=== PATIENT | female | born 1955 | race Caucasian/White ===

== ENCOUNTER 2016-09-07 14:42 | Emergency (ER) | payer MEDICARE, OTHER ==
[2016-09-07 14:50] VITALS: TEMP 98.6
[2016-09-07] MEDS ORDERED: MORPHINE SULFATE 2 MG/ML SYRINGE IVP ONE (15:19)
--- NOTE | 2016-09-07 15:23 | ED ---
General Adult HPI - General Source: patient, EMS, RN notes reviewed Mode of arrival: EMS Limitations: no limitations <Samir Zheng - Last Filed: 09/07/16 17:09> <Cristóbal Mendoza - Last Filed: 09/07/16 19:05> - General Chief complaint: Fall Stated complaint: Fall Time Seen by Provider: 09/07/16 14:45 - History of Present Illness Initial comments: This is a 61-year-old female presents to the emergency department stating that she tripped over some cement in the parking lot of a gas station fell and hit her face per patient states she doesn't know if she lost consciousness or not but she now complains of left wrist pain and right knee pain and a headache. Patient also complains some tenderness over the maxilla where there is an abrasion. Patient denies any chest pain or difficulty breathing patient denies abdominal pain patient denies back pain patient denies any or hip pain. Patient states prior to the event she was feeling fine she remembers her foot Something and Tripping. Patient Denies Any Lightheadedness or Dizziness Prior to the Episode. (Samir Zheng) - Related Data Home Medications Medication Instructions Recorded Confirmed ALPRAZolam [Xanax] 2 mg PO TID 12/14/13 09/07/16 Atorvastatin [Lipitor] 20 mg PO HS 12/14/13 09/07/16 Dextroamphetamine/Amphetamine 20 mg PO BID 12/14/13 09/07/16 [Adderall] FLUoxetine HCL [PROzac] 40 mg PO BID 12/14/13 09/07/16 Omeprazole [PriLOSEC] 40 mg PO BID 09/21/14 09/07/16 Fluticasone/Salmeterol [Advair 1 puff INHALATION RT-BID 10/05/15 09/07/16 500-50 Diskus] Baclofen 10 mg PO Q8H PRN 01/04/16 09/07/16 QUEtiapine [SEROquel] 50 - 100 mg PO HS 01/04/16 09/07/16 Sucralfate [Carafate] 1 gm PO TID 06/18/16 09/07/16 traMADol HCL [Ultram] 50 - 100 mg PO Q6H PRN 09/07/16 09/07/16 Previous Rx's Medication Instructions Recorded HYDROcodone/APAP 5-325MG [[place] 1 - 2 tab PO Q6HR PRN #12 tab 09/07/16 5-325] Ondansetron Odt [Zofran Odt] 4 mg PO Q8HR PRN #12 tab 09/07/16 Allergies Allergy/AdvReac Type Severity Reaction Status Date / Time adhesive tape AdvReac SKIN Verified 09/07/16 16:00 TEARING Review of Systems ROS Other: All systems not noted in ROS Statement are negative. <Samir Zheng - Last Filed: 09/07/16 17:09> ROS Other: All systems not noted in ROS Statement are negative. <Cristóbal Mendoza - Last Filed: 09/07/16 19:05> ROS Statement: Those systems with pertinent positive or pertinent negative responses have been documented in the HPI. Past Medical History Past Medical History: Asthma, Heart Failure, COPD, Dementia, Fibromyalgia, GERD/ Reflux, GI Bleed, Hyperlipidemia, Memory Impairment, Myocardial Infarction ([place]) , Osteoarthritis (OA), Pneumonia, Sleep Apnea/CPAP/BIPAP Additional Past Medical History / Comment(s): esophageal stricture with balloon stretching. sepsis with pneumonia(recurrent). skin ca. minor [place] 2 years ago. kidney stone with lithotrpsy. arthritis,rls.pt stated "my normal wt is around 0034-1851 so if i have an infection my white count is actually in a normal range " Last Myocardial Infarction Date:: 2 years ago approx History of Any Multi-Drug Resistant Organisms: None Reported Past Surgical History: Appendectomy, Breast Surgery, Hernia Repair, Hysterectomy Additional Past Surgical History / Comment(s): lithotrpsy, "stomach bypass secondary to gi bleed, tumor removed from left chao. mulitple skin bx. 2 umbilical hernia repairs, septal repair, 2 lumpectomies right breast both benign Past Anesthesia/Blood Transfusion Reactions: Previous Problems w/ Anesthesia Additional Past Anesthesia/Blood Transfusion Reaction / Comment(s): bp dips low Past Psychological History: Anxiety, Depression, PTSD Additional Psychological History / Comment(s): secondary to daughter commiting suicide 5 yrs ago. left pt with "shock dementia". 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 Smoking Status: Never smoker Past Alcohol Use History: None Reported Past Drug Use History: None Reported - Past Family History Mother Family Medical History: Cancer Additional Family Medical History / Comment(s): brother, sister and mother all had terminal cancers - breast, esophageal, and pancreatic <Samir Zheng - Last Filed: 09/07/16 17:09> General Exam Limitations: no limitations <Samir Zheng - Last Filed: 09/07/16 17:09> <Cristóbal Mendoza - Last Filed: 09/07/16 19:05> - General Exam Comments Initial Comments: GENERAL: Patient is well-developed and well-nourished. Patient is nontoxic and well- hydrated and is in mild distress. ENT: Neck is soft and supple. No significant lymphadenopathy is noted. Oropharynx is clear. Moist mucous membranes. Neck has full range of motion without eliciting any pain. EYES: The sclera were anicteric and conjunctiva were pink and moist. Extraocular movements were intact and pupils were equal round and reactive to light. Eyelids were unremarkable. PULMONARY: Unlabored respirations. Good breath sounds bilaterally. No audible rales rhonchi or wheezing was noted. CARDIOVASCULAR: There is a regular rate and rhythm without any murmurs gallops or rubs. ABDOMEN: Soft and nontender with normal bowel sounds. No palpable organomegaly was noted. There is no palpable pulsatile mass. SKIN: Abrasion upper lip NEUROLOGIC: Patient is alert and oriented x3. Cranial nerves II through XII are grossly intact. Motor and sensory are also intact. Normal speech, volume and content. Symmetrical smile. MUSCULOSKELETAL: Patient has difficulty flexing the right knee. Patient has tenderness in the anterior aspect of the knee just inferior to the patella. Patient complains of tenderness over the ulnar on the posterior aspect of the left wrist. Patient also has some maxillary tenderness with the abrasion is. LYMPHATICS: No significant lymphadenopathy is noted PSYCHIATRIC: Normal psychiatric evaluation. (Samir Zheng) Medical Decision Making - Lab Data Result diagrams: 09/07/16 15:30 09/07/16 15:30 <Samir Zheng - Last Filed: 09/07/16 17:09> - Lab Data Result diagrams: 09/07/16 15:30 09/07/16 15:30 <Cristóbal Mendoza - Last Filed: 09/07/16 19:05> - Medical Decision Making EKG shows normal sinus rhythm at 65 bpm ND interval 244 QRS is 84 Q-T intervals 424 QTC is 440. Patient's EKG shows no ST segment elevation or depression or T- wave abdomen is noted. Dr. Mendoza be taking over the care of this patient at 5 PM (Samir Zheng) Patient was signed out to me by Dr. Zheng. I reviewed the scans and there were mostly unremarkable except for possibility of a hairline fracture of the right maxillary sinus. I palpated the patient's face and she has tenderness all over. I cannot completely exclude that there may be a hairline fracture at this point however the management is conservative. I told her that she needs to refrain from blowing her nose until she can follow-up with her primary doctor and possibly get in to see ENT. The patient was improved after pain medications and knee immobilizer in the emergency department. She has a cane at home that she is going to use. I'm going to give her Nelson and Zofran that she can use as needed. Told her that she has a concussion if she has any worsening or severe headache or intractable vomiting she is to return emergency Department for further evaluation. Patient understood and agreed and was okay with the plan to go home. (Cristóbal Mendoza) - Lab Data Lab Results 09/07/16 09/07/16 09/07/16 Range/Units 15:30 15:30 15:30 WBC 3.6 L (3.8-10.6) k/uL RBC 4.03 (3.80-5.40) m/uL Hgb 12.7 (11.4-16.0) gm/dL Hct 39.0 (34.0-46.0) % MCV 96.6 (80.0-100.0) fL MCH 31.5 (25.0-35.0) pg MCHC 32.6 (31.0-37.0) g/dL RDW 12.4 (11.5-15.5) % Plt Count 176 (150-450) k/uL Neutrophils % 57 % Lymphocytes % 31 % Monocytes % 6 % Eosinophils % 3 % Basophils % 1 % Neutrophils # 2.0 (1.3-7.7) k/uL Lymphocytes # 1.1 (1.0-4.8) k/uL Monocytes # 0.2 (0-1.0) k/uL Eosinophils # 0.1 (0-0.7) k/uL Basophils # 0.0 (0-0.2) k/uL PT (9.0-12.0) sec INR (<1.1) APTT (22.0-30.0) sec Sodium 141 (137-145) mmol/L Potassium 4.2 (3.5-5.1) mmol/L Chloride 108 H (98-107) mmol/L Carbon Dioxide 25 (22-30) mmol/L Anion Gap 8 mmol/L BUN 16 (7-17) mg/dL Creatinine 0.58 (0.52-1.04) mg/dL Est GFR (MDRD) Af Amer >60 (>60 ml/min/1.73 sqM) Est GFR (MDRD) Non-Af >60 (>60 ml/min/1.73 sqM) Glucose 85 (74-99) mg/dL Calcium 8.7 (8.4-10.2) mg/dL Magnesium 1.8 (1.6-2.3) mg/dL Total Bilirubin 0.5 (0.2-1.3) mg/dL AST 22 (14-36) U/L ALT 23 (9-52) U/L Alkaline Phosphatase 84 (38-126) U/L Total Creatine Kinase 91 (30-135) U/L CK-MB (CK-2) 2.0 (0.0-2.4) ng/mL CK-MB (CK-2) Rel Index 2.2 Troponin I <0.012 (0.000-0.034) ng/mL Total Protein 6.4 (6.3-8.2) g/dL Albumin 3.7 (3.5-5.0) g/dL 09/07/16 Range/Units 15:30 WBC (3.8-10.6) k/uL RBC (3.80-5.40) m/uL Hgb (11.4-16.0) gm/dL Hct (34.0-46.0) % MCV (80.0-100.0) fL MCH (25.0-35.0) pg MCHC (31.0-37.0) g/dL RDW (11.5-15.5) % Plt Count (150-450) k/uL Neutrophils % % Lymphocytes % % Monocytes % % Eosinophils % % Basophils % % Neutrophils # (1.3-7.7) k/uL Lymphocytes # (1.0-4.8) k/uL Monocytes # (0-1.0) k/uL Eosinophils # (0-0.7) k/uL Basophils # (0-0.2) k/uL PT 10.3 (9.0-12.0) sec INR 1.0 (<1.1) APTT 22.3 (22.0-30.0) sec Sodium (137-145) mmol/L Potassium (3.5-5.1) mmol/L Chloride (98-107) mmol/L Carbon Dioxide (22-30) mmol/L Anion Gap mmol/L BUN (7-17) mg/dL Creatinine (0.52-1.04) mg/dL Est GFR (MDRD) Af Amer (>60 ml/min/1.73 sqM) Est GFR (MDRD) Non-Af (>60 ml/min/1.73 sqM) Glucose (74-99) mg/dL Calcium (8.4-10.2) mg/dL Magnesium (1.6-2.3) mg/dL Total Bilirubin (0.2-1.3) mg/dL AST (14-36) U/L ALT (9-52) U/L Alkaline Phosphatase (38-126) U/L Total Creatine Kinase (30-135) U/L CK-MB (CK-2) (0.0-2.4) ng/mL CK-MB (CK-2) Rel Index Troponin I (0.000-0.034) ng/mL Total Protein (6.3-8.2) g/dL Albumin (3.5-5.0) g/dL Disposition <Samir Zheng - Last Filed: 09/07/16 17:09> <Cristóbal Mendoza - Last Filed: 09/07/16 19:05> Clinical Impression: Fall, Knee contusion, Facial contusion, Mild traumatic brain injury Disposition: HOME SELF-CARE Condition: Stable Instructions: Post Concussion Syndrome (ED) Prescriptions: HYDROcodone/APAP 5-325MG [[place] 5-325] 1 - 2 tab PO Q6HR PRN #12 tab PRN Reason: Pain Ondansetron Odt [Zofran Odt] 4 mg PO Q8HR PRN #12 tab PRN Reason: Nausea Referrals: Marty Faulkner DO [Primary Care Provider] - 1-2 days
[2016-09-07 15:50] LABS: Basophils % (A) 1 %; CHCM 32.2; Eosinophils # (A) 0.1 k/uL (0-0.7); Eosinophils % (A) 3 %; HDW 2.44; HGB 12.7 gm/dL (11.4-16.0); Luc # (Auto) 0.08; Luc % (Auto) 2; Lymphocytes # (A) 1.1 k/uL (1.0-4.8); Lymphocytes % (A) 31 %; MCH 31.5 pg (25.0-35.0); MCHC 32.6 g/dL (31.0-37.0); MCV 96.6 fL (80.0-100.0); Mean Platelet Volume 9.4; Monocytes # (A) 0.2 k/uL (0-1.0); Monocytes % (A) 6 %; Neutrophils % (A) 57 %; RBC 4.03 m/uL (3.80-5.40); RDW 12.4 % (11.5-15.5); WBC 3.6 k/uL (3.8-10.6); WBC (Perox) 3.66
[2016-09-07 15:53] LABS: ALT 23 U/L (9-52); AST 22 U/L (14-36); Alkaline Phosphatase 84 U/L (38-126); Anion Gap 8 mmol/L; Blood Urea Nitrogen 16 mg/dL (7-17); Calcium 8.7 mg/dL (8.4-10.2); Carbon Dioxide 25 mmol/L (22-30); Chloride 108 mmol/L (98-107); Glucose 85 mg/dL (74-99); Magnesium 1.8 mg/dL (1.6-2.3); Non-African American GFR(MDRD) >60 (>60 ml/min/1.73 sqM); Partial Thromboplastin Time 22.3 sec (22.0-30.0); Potassium 4.2 mmol/L (3.5-5.1); Prothrombin Time 10.3 sec (9.0-12.0); Sodium 141 mmol/L (137-145); Total Bilirubin 0.5 mg/dL (0.2-1.3); Total Protein 6.4 g/dL (6.3-8.2)
[2016-09-07 16:07] LABS: Creatine Kinase 91 U/L (30-135)
[2016-09-07 16:21] LABS: Troponin I <0.012 ng/mL (0.000-0.034)
--- NOTE | 2016-09-07 17:05 | CT ---
EXAMINATION TYPE: CT facial bones wo con DATE OF EXAM: 09/07/2016 4:51 PM COMPARISON: NONE HISTORY: Fall today. CT DLP: 2566.00 mGycm Automated exposure control for dose reduction was used. TECHNIQUE: CT scan of the sinuses is performed without contrast, axial images are obtained, coronal r eformatted images are also reviewed. FINDINGS: Nasopharynx is symmetric. Intraorbital structures have a normal appearance. Motion artifact obscures intracranial structures. Nasopharynx symmetric. Osseous structures including the frontal bone and portions the orbits are limited due to motion artif act. Defect along the right frontal bone noted to extend into the frontal sinus but no fluid and ther efore felt to be chronic correlate with point tenderness. No obvious acute fracture. IMPRESSION: 1. Linear defect along the right margin of the frontal sinus. Correlate with point tenderness for ariela rline nondisplaced fracture. [place] to be most likely chronic correlate clinically..
--- NOTE | 2016-09-07 17:12 | CT ---
EXAMINATION TYPE: CT brain micaelaine wo con DATE OF EXAM: 09/07/2016 4:52 PM COMPARISON: NONE HISTORY: Fall today. CT DLP: 2566.00 mGycm Automated exposure control for dose reduction was used. TECHNIQUE: CT scan of the head and cervical spine are performed without contrast. FINDINGS: There is no acute intracranial hemorrhage, mass effect, or midline shift identified. Calc ification in the basal ganglia noted. Linear lucency involving the right frontal bone appears chronic . No fluid within the sinus. Severe degenerative disc disease C5-C6. Anterolisthesis of C3 on C4 appears chronic. Multilevel facet arthropathy noted. Heterogeneous pattern of the thyroid gland noted. IMPRESSION: 1. There is no acute fracture or dislocation evident in the cervical spine. 2. No acute intracranial hemorrhage, mass effect, or midline shift is seen.
--- NOTE | 2016-09-07 18:08 | XR ---
EXAMINATION TYPE: XR chest 2V DATE OF EXAM: 09/07/2016 6:04 PM COMPARISON: 06/18/2016 HISTORY: Shortness of breath TECHNIQUE: Frontal and lateral views of the chest are obtained. FINDINGS: Scattered senescent parenchymal changes noted. Hyperinflation compatible with COPD. No evidence for infiltrate. No evidence for atelectasis. Heart size is stable. Mediastinal structures are stable and grossly unremarkable. No evidence for hilar prominence. Degenerative changes dorsal spine. IMPRESSION: 1. No evidence for acute pulmonary disease.
--- NOTE | 2016-09-07 18:09 | XR ---
EXAMINATION TYPE: XR wrist complete LT, XR knee complete RT DATE OF EXAM: 09/07/2016 6:04 PM CLINICAL HISTORY: pain TECHNIQUE: Frontal, lateral and oblique images of the left wrist are obtained. COMPARISON: None. FINDINGS: There is no acute fracture/dislocation evident. The joint spaces appear within normal donahue its. The overlying soft tissue appears unremarkable. IMPRESSION: There is no acute fracture or dislocation seen. ICD 10 NO FRACTURE, INITIAL EVALUATION EXAMINATION TYPE: XR wrist complete LT, XR knee complete RT DATE OF EXAM: 09/07/2016 6:04 PM CLINICAL HISTORY: pain TECHNIQUE: Three views of the right knee are obtained. COMPARISON: None. FINDINGS: There is no acute fracture/dislocation. The tri-compartment joint spaces appear within no rmal limits. The overlying soft tissue appears unremarkable. Mild joint effusion noted. IMPRESSION: There is no acute fracture or dislocation.ICD 10 NO FRACTURE, INITIAL EVALUATION
[2016-09-07] MEDS ORDERED: KETOROLAC 30 MG/ML 1 ML VIAL IVP STA (18:28)
[2016-09-07] MEDS ORDERED: HYDROcodone/APAP 5-325MG 1 EACH TAB PO STA (18:28)
[2016-09-07] MEDS ORDERED: ONDANSETRON ODT 4 MG TAB PO STA (18:36)
[2016-09-07 19:06] VITALS: BP 125/69; PULSE 62; RESP 18
== END 2016-09-07 19:06 | disposition home or self-care (01) ==
LOC: EC 14:42
DX: S00.531A Contusion of lip, initial encounter (principal); S80.01XA Contusion of right knee, initial encounter; F07.81 Postconcussional syndrome; M25.532 Pain in left wrist; J44.9 Chronic obstructive pulmonary disease, unspecified; J45.909 Unspecified asthma, uncomplicated; M79.7 Fibromyalgia; K21.9 Gastro-esophageal reflux disease without esophagitis; E78.5 Hyperlipidemia, unspecified; I25.2 Old myocardial infarction; M19.90 Unspecified osteoarthritis, unspecified site; F43.10 Post-traumatic stress disorder, unspecified; F41.9 Anxiety disorder, unspecified; F32.9 Major depressive disorder, single episode, unspecified; F03.90 Unspecified dementia, unspecified severity, without behavioral disturbance, psychotic disturbance, mood disturbance, and anxiety; Z79.899 Other long term (current) drug therapy; Z91.048 Other nonmedicinal substance allergy status; W01.198A Fall on same level from slipping, tripping and stumbling with subsequent striking against other object, initial encounter
CPT/HCPCS: 99285; 96374; 96375; 36415; 93005; 80053; 82550; 82553; 83735; 84484; 85025; 85610; 85730; 71020; 73110; 73562; 72125; 70486; 70450; L1830; J1885; J2270

== ENCOUNTER 2016-09-08 19:21 | Observation (INO) | payer MEDICARE, OTHER ==
[2016-09-08] MEDS ORDERED: SODIUM CHLORIDE 0.9% 1,000 ML IV STA ×2 (20:26)
[2016-09-08] MEDS ORDERED: ACETAMINOPHEN IV (For NPO) 1,000 MG in SALINE 1 100ML.BAG IVPB STA (20:27)
--- NOTE | 2016-09-08 20:32 | ED ---
Dizziness HPI - General Chief Complaint: Syncope Stated Complaint: Dizziness/Vomiting Time Seen by Provider: 09/08/16 20:00 Source: patient, RN notes reviewed Mode of arrival: wheelchair Limitations: no limitations - History of Present Illness Initial Comments: This is a 61-year-old female history of multiple medical problems who states she tripped over a concrete yesterday hit her head against a pole and later concreted a local gas station. She was seen here and diagnosed with an orbital fracture a possible nasal fracture and from what she describes a right knee strain. She presents today due to 3-4 near syncopal episodes with dizziness lightheadedness difficulty walking increased pain to her head or neck and right knee. There were apparently no fractures seen in the knee. She has no focal neurological deficits. Some nausea but no vomiting. She states her pain is 8/ 10 severity rate now. She was seen by her family doctor today and referred back here for reevaluation. MD Complaint: dizziness, lightheadedness, near syncope, difficulty walking - Related Data Home Medications Medication Instructions Recorded Confirmed ALPRAZolam [Xanax] 2 mg PO TID 12/14/13 09/08/16 Atorvastatin [Lipitor] 20 mg PO HS 12/14/13 09/08/16 Dextroamphetamine/Amphetamine 20 mg PO BID 12/14/13 09/08/16 [Adderall] FLUoxetine HCL [PROzac] 40 mg PO BID 12/14/13 09/08/16 Omeprazole [PriLOSEC] 40 mg PO BID 09/21/14 09/08/16 Fluticasone/Salmeterol [Advair 1 puff INHALATION RT-BID 10/05/15 09/08/16 500-50 Diskus] Baclofen 10 mg PO Q8H PRN 01/04/16 09/08/16 QUEtiapine [SEROquel] 100 mg PO HS 01/04/16 09/08/16 Sucralfate [Carafate] 1 gm PO TID 06/18/16 09/08/16 traMADol HCL [Ultram] 50 mg PO Q6H PRN 09/07/16 09/08/16 HYDROcodone/APAP 5-325MG [[place] 1 tab PO Q6HR PRN 09/08/16 09/08/16 5-325] Previous Rx's Medication Instructions Recorded Ondansetron Odt [Zofran Odt] 4 mg PO Q8HR PRN #12 tab 09/07/16 Allergies Allergy/AdvReac Type Severity Reaction Status Date / Time adhesive tape AdvReac Skin Verified 09/08/16 20:26 Tearing Review of Systems ROS Statement: Those systems with pertinent positive or pertinent negative responses have been documented in the HPI. ROS Other: All systems not noted in ROS Statement are negative. Past Medical History Past Medical History: Asthma, Heart Failure, COPD, Dementia, Fibromyalgia, GERD/ Reflux, GI Bleed, Hyperlipidemia, Memory Impairment, Myocardial Infarction ([place]) , Osteoarthritis (OA), Pneumonia, Sleep Apnea/CPAP/BIPAP Additional Past Medical History / Comment(s): esophageal stricture with balloon stretching. sepsis with pneumonia(recurrent). skin ca. minor [place] 2 years ago. kidney stone with lithotrpsy. arthritis,rls.pt stated "my normal wt is around 5297-4874 so if i have an infection my white count is actually in a normal range " Last Myocardial Infarction Date:: 2 years ago approx History of Any Multi-Drug Resistant Organisms: None Reported Past Surgical History: Appendectomy, Breast Surgery, Hernia Repair, Hysterectomy Additional Past Surgical History / Comment(s): lithotrpsy, "stomach bypass secondary to gi bleed, tumor removed from left chao. mulitple skin bx. 2 umbilical hernia repairs, septal repair, 2 lumpectomies right breast both benign Past Anesthesia/Blood Transfusion Reactions: Previous Problems w/ Anesthesia Additional Past Anesthesia/Blood Transfusion Reaction / Comment(s): bp dips low Past Psychological History: Anxiety, Depression, PTSD Additional Psychological History / Comment(s): secondary to daughter commiting suicide 5 yrs ago. left pt with "shock dementia". 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 Smoking Status: Never smoker Past Alcohol Use History: None Reported Past Drug Use History: None Reported - Past Family History Mother Family Medical History: Cancer Additional Family Medical History / Comment(s): brother, sister and mother all had terminal cancers - breast, esophageal, and pancreatic General Exam - General Exam Comments Initial Comments: Is a well-developed well-nourished awake alert oriented history female she does demonstrate a [place] Coma Scale of 15 Limitations: no limitations General appearance: alert, anxious Head exam: Present: normocephalic, other (Some edema noted around the right inferior orbit dry blood from the right naris tenderness palpation over this region. No step-off or crepitation tenderness over the nasion.) Eye exam: Present: normal appearance, PERRL, EOMI Pupils: Present: normal accommodation ENT exam: Present: TM's normal bilaterally. Absent: normal oropharynx Neck exam: Present: normal inspection, tenderness, full ROM. Absent: meningismus, lymphadenopathy Respiratory exam: Present: normal lung sounds bilaterally. Absent: respiratory distress, wheezes, rales, rhonchi, stridor Cardiovascular Exam: Present: regular rate, normal rhythm, normal heart sounds. Absent: systolic murmur, diastolic murmur, rubs, gallop, clicks Rectal exam: Present: deferred Extremities exam: Present: tenderness, normal capillary refill, other ( Tenderness over the right knee to palpation no step-off or crepitation there is evidence of localized edema.). Absent: full ROM Back exam: Present: normal inspection, tenderness, muscle spasm, paraspinal tenderness. Absent: CVA tenderness (R), CVA tenderness (L), vertebral tenderness Neurological exam: Present: alert, oriented X3, CN II-XII intact. Absent: motor sensory deficit Psychiatric exam: Present: normal affect, normal mood Skin exam: Present: warm, dry, normal color Course Vital Signs 09/08/16 19:32 Temperature 98.4 F Pulse Rate 73 Respiratory 18 Rate Blood Pressure 130/59 O2 Sat by Pulse 98 Oximetry - Reevaluation(s) Reevaluation #1: 09/08/16 22:49 Reassessment of the patient reveals her to be awake alert oriented history she does have pain in her face and her right knee. EKG Findings - EKG Results: EKG: interpreted by ERMD, sinus rhythm (Sinus rhythm rate of 63. Arrival 120 QRS duration 74 QT/QTC 422/431 st-t wave changes), normal axis, normal QRS, normal ST/T, no acute changes Medical Decision Making - Lab Data Result diagrams: 09/08/16 20:15 09/08/16 20:15 Lab Results 09/08/16 09/08/16 09/08/16 Range/Units 20:15 20:15 20:15 WBC 3.6 L (3.8-10.6) k/uL RBC 3.79 L (3.80-5.40) m/uL Hgb 12.0 (11.4-16.0) gm/dL Hct 36.5 (34.0-46.0) % MCV 96.4 (80.0-100.0) fL MCH 31.6 (25.0-35.0) pg MCHC 32.8 (31.0-37.0) g/dL RDW 12.5 (11.5-15.5) % Plt Count 175 (150-450) k/uL Neutrophils % 59 % Lymphocytes % 29 % Monocytes % 7 % Eosinophils % 3 % Basophils % 0 % Neutrophils # 2.1 (1.3-7.7) k/uL Lymphocytes # 1.0 (1.0-4.8) k/uL Monocytes # 0.3 (0-1.0) k/uL Eosinophils # 0.1 (0-0.7) k/uL Basophils # 0.0 (0-0.2) k/uL Sodium 141 (137-145) mmol/L Potassium 4.0 (3.5-5.1) mmol/L Chloride 105 (98-107) mmol/L Carbon Dioxide 27 (22-30) mmol/L Anion Gap 9 mmol/L BUN 17 (7-17) mg/dL Creatinine 0.65 (0.52-1.04) mg/dL Est GFR (MDRD) Af Amer >60 (>60 ml/min/1.73 sqM) Est GFR (MDRD) Non-Af >60 (>60 ml/min/1.73 sqM) Glucose 154 H (74-99) mg/dL Calcium 8.5 (8.4-10.2) mg/dL Magnesium 1.8 (1.6-2.3) mg/dL Total Bilirubin 0.5 (0.2-1.3) mg/dL AST 18 (14-36) U/L ALT 20 (9-52) U/L Alkaline Phosphatase 72 (38-126) U/L Total Creatine Kinase 73 (30-135) U/L CK-MB (CK-2) 1.3 (0.0-2.4) ng/mL CK-MB (CK-2) Rel Index 1.8 Total Protein 6.0 L (6.3-8.2) g/dL Albumin 3.5 (3.5-5.0) g/dL - Radiology Data Radiology results: report reviewed (I did review the imaging and reports no acute findings except for right patella fracture is nondisplaced. I did a long discussion with the patient and her family also with surgeon on-call when the patient came in yesterday the patient has been referred to admission to medicine with surgery on consult consultation for ENT as well as orthopedic surgery. At this time there is no general surgical problem the evaluation for near syncope will begin as well as addressing other findings.), image reviewed Disposition Clinical Impression: Near syncope, Patella fracture, Right orbit fracture Disposition: ADMITTED IP TO THIS [facility] Condition: Stable
[2016-09-08 20:43] LABS: Basophils % (A) 0 %; CH 30.9; CHCM 32.2; Eosinophils # (A) 0.1 k/uL (0-0.7); Eosinophils % (A) 3 %; HCT 36.5 % (34.0-46.0); Luc # (Auto) 0.06; Luc % (Auto) 2; Lymphocytes % (A) 29 %; MCH 31.6 pg (25.0-35.0); MCHC 32.8 g/dL (31.0-37.0); MCV 96.4 fL (80.0-100.0); Mean Platelet Volume 9.3; Monocytes # (A) 0.3 k/uL (0-1.0); Monocytes % (A) 7 %; Neutrophils # (A) 2.1 k/uL (1.3-7.7); Neutrophils % (A) 59 %; RBC 3.79 m/uL (3.80-5.40); RDW 12.5 % (11.5-15.5); WBC 3.6 k/uL (3.8-10.6); WBC (Perox) 3.62
[2016-09-08] MEDS ORDERED: ONDANSETRON 4 MG/2 ML VIAL IVP STA (20:53)
[2016-09-08 21:04] LABS: ALT 20 U/L (9-52); AST 18 U/L (14-36); Alkaline Phosphatase 72 U/L (38-126); Anion Gap 9 mmol/L; Blood Urea Nitrogen 17 mg/dL (7-17); Calcium 8.5 mg/dL (8.4-10.2); Carbon Dioxide 27 mmol/L (22-30); Chloride 105 mmol/L (98-107); Glucose 154 mg/dL (74-99); Magnesium 1.8 mg/dL (1.6-2.3); Non-African American GFR(MDRD) >60 (>60 ml/min/1.73 sqM); Sodium 141 mmol/L (137-145); Total Bilirubin 0.5 mg/dL (0.2-1.3)
--- NOTE | 2016-09-08 21:10 | CT ---
EXAMINATION TYPE: CT brain wo con DATE OF EXAM: 09/08/2016 8:56 PM COMPARISON: CT brain dated 06/18/2016. HISTORY: Fall yesterday. CT DLP: 1070.80 mGycm. Automated Exposure Control for Dose Reduction was Utilized. TECHNIQUE: CT scan of the head is performed without contrast. FINDINGS: There is no acute intracranial hemorrhage, mass effect, or midline shift identified. The ventricles and sulci are within symmetrically prominent and age-related. Dystrophic bilateral basal ganglia calcifications are seen. The globes are intact and the visualized sinuses are clear. Atherosc lerosis is noted of the intracranial vasculature. Previously noted linear lucency along the right fro ntal sinus is less conspicuous on today's examination. IMPRESSION: 1. No acute intracranial hemorrhage, mass effect, or midline shift is seen. 2. No evidence of calvarial fracture.
[2016-09-08 21:11] LABS: Creatine Kinase MB 1.3 ng/mL (0.0-2.4)
--- NOTE | 2016-09-08 21:16 | CT ---
EXAMINATION TYPE: CT knee RT wo con DATE OF EXAM: 09/08/2016 8:56 PM COMPARISON: Right knee radiographs dated 09/07/2016. HISTORY: Fall yesterday. CT DLP: 445.[address] images were obtained through the distal femur to the proximal tibia. Coronal and sagittal reformats were obtained for review. Automated exposure control for dose reduction was used. 3-D reformats were obtained. FINDINGS: There is prepatellar edema and skin thickening. There is an acute medial pole patellar fracture, whic h is nondisplaced seen on coronal image (location -47.13 and page [id number]) there is an associated modera te lipohemarthrosis of the suprapatellar space and fluid seen at the patellar apex. No other fracture s are identified. Well-corticated bone islands are seen of the lateral tibial plateau. Atherosclerosi s is seen of the vasculature. There is no evidence of dislocation. IMPRESSION: 1. NONDISPLACED MEDIAL POLE PATELLAR FRACTURE WITH ASSOCIATED MODERATE LIPOHEMARTHROSIS. NO OTHER FRA CTURE OR DISLOCATION IS IDENTIFIED.
[2016-09-08] MEDS ORDERED: NALOXONE 0.4 MG/ML 1 ML VIAL IV PRN (22:51)
[2016-09-08] MEDS ORDERED: BACLOFEN 10 MG TAB PO PRN (22:56)
[2016-09-09 00:34] VITALS: BMI 29.2
[2016-09-09] MEDS: HYDROcodone/APAP 5-325MG 1 EACH TAB PO PRN ×4 (00:42→22:32)
[2016-09-09 06:26] LABS: Glucose,Whole Blood 107 mg/dL (75-99)
[2016-09-09] MEDS: PANTOPRAZOLE 40 MG TABLET PO SCH ×2 (08:08→21:40)
[2016-09-09] MEDS: ALPRAZolam 0.5 MG TAB PO SCH ×3 (08:09→21:40)
[2016-09-09] MEDS: SUCRALFATE 1 GM TAB PO SCH ×3 (08:09→21:40)
[2016-09-09] MEDS: FLUoxetine HCL 20 MG CAP PO SCH ×2 (08:09→21:40)
[2016-09-09] MEDS: SYMBICORT 160-4.5 MCG INHALER INHALATION SCH ×3 (08:38→20:40)
[2016-09-09] MEDS ORDERED: NON-FORMULARY DRUG (Dextroamphetamine/Amphetamine [Adderall] 20 MG) PO SCH (09:00)
--- NOTE | 2016-09-09 11:41 | P.CNOR ---
History of Present Illness - [facility] Consult date: 09/09/16 Consult reason: fracture (Right patella) History of present illness: This is a 61 -year-old female who fell in the gas station parking lot on 09-07-16 sustaining injury to her right knee and head. She was seen emergency department that day and discharged to home and advised to follow-up with orthopedics and ENT. She is found to have a right orbital fracture and right knee strain. She saw her family physician yesterday who admitted the patient for further evaluation for possible concussion. Patient also complains of continued right knee pain. Computed tomography scan was done which reveals a nondisplaced patella fracture. We are consulted for orthopedic evaluation. Patient also complains of left arm pain. Past Medical History Past Medical History: Asthma, Cancer, Heart Failure, COPD, Dementia, Fibromyalgia, GERD/Reflux, GI Bleed, Hyperlipidemia, Memory Impairment, Myocardial Infarction ([place]), Osteoarthritis ([place]), Pneumonia, Sleep Apnea/CPAP/ BIPAP Additional Past Medical History / Comment(s): esophageal stricture with balloon stretching. sepsis with pneumonia(recurrent) r/t to GERD causing aspiration pneumonia. skin ca. minor [place] 2 years ago. kidney stone with lithotrpsy. arthritis,rls.pt stated "my normal wt is around 4811-8590 so if i have an infection my white count is actually in a normal range", Hypotension, Anemia Last Myocardial Infarction Date:: 2 years ago approx History of Any Multi-Drug Resistant Organisms: None Reported Past Surgical History: Adenoidectomy, Appendectomy, Breast Surgery, Hernia Repair, Hysterectomy, Tonsillectomy Additional Past Surgical History / Comment(s): lithotrpsy, "stomach bypass secondary to gi bleed, tumor removed from left chao. mulitple skin bx. 3 umbilical hernia repairs, septal repair, 2 lumpectomies right breast both benign Past Anesthesia/Blood Transfusion Reactions: Previous Problems w/ Anesthesia Additional Past Anesthesia/Blood Transfusion Reaction / Comm: bp dips low Past Psychological History: Anxiety, Depression, PTSD Additional Psychological History / Comment(s): secondary to daughter commiting suicide 5 yrs ago. left pt with "shock dementia". 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 Smoking Status: Never smoker Past Alcohol Use History: None Reported Past Drug Use History: None Reported - Past Family History Mother Family Medical History: Cancer Additional Family Medical History / Comment(s): brother, sister and mother all had terminal cancers - breast, esophageal, and pancreatic Medications and Allergies Home Medications Medication Instructions Recorded Confirmed Type ALPRAZolam [Xanax] 2 mg PO TID 12/14/13 09/08/16 History Atorvastatin [Lipitor] 20 mg PO HS 12/14/13 09/08/16 History Dextroamphetamine/Amphetamine 20 mg PO BID 12/14/13 09/08/16 History [Adderall] FLUoxetine HCL [PROzac] 40 mg PO BID 12/14/13 09/08/16 History Omeprazole [PriLOSEC] 40 mg PO BID 09/21/14 09/08/16 History Fluticasone/Salmeterol [Advair 1 puff INHALATION RT-BID 10/05/15 09/08/16 History 500-50 Diskus] Baclofen 10 mg PO Q8H PRN 01/04/16 09/08/16 History QUEtiapine [SEROquel] 100 mg PO HS 01/04/16 09/08/16 History Sucralfate [Carafate] 1 gm PO TID 06/18/16 09/08/16 History traMADol HCL [Ultram] 50 mg PO Q6H PRN 09/07/16 09/08/16 History HYDROcodone/APAP 5-325MG [[place] 1 tab PO Q6HR PRN 09/08/16 09/08/16 History 5-325] Allergies Allergy/AdvReac Type Severity Reaction Status Date / Time adhesive tape AdvReac Skin Verified 09/08/16 20:26 Tearing Physical Examination This is a pleasant 59-year-old female in no acute distress. She is alert and oriented 3. Exam of the head neck reveal mild swelling to the right orbit. There is an abrasion about the right nares. She has fairly good cervical spine motion without difficulty or pain. Exam the upper extremities reveals no obvious deformity. There is pain with palpation about the triceps muscle and tendon insertion on the olecranon. She has full elbow extension. Flexion to approximately 90. She has mild pain with motion of the shoulder. Neurovascular status to the upper extremities is intact. Exam of the lower extremities reveals a knee immobilizer in place on the right. The immobilizer is removed and on inspection of the right knee there is mild swelling noted. There is no ecchymosis or erythema. There is pain on palpation about the patella. She has full foot and ankle motion without difficulty or pain. Neurovascular status to the right lower extremity is intact. Results Computed tomography scan of the right knee reveals a nondisplaced medial patellar fracture. No other acute fractures identified. - Labs Labs: Abnormal Lab Results - Last 24 Hours (Table) 09/09/16 Range/Units 06:25 POC Glucose (mg/dL) 107 H (75-99) mg/dL Result Diagrams: 09/08/16 20:15 09/08/16 20:15 Assessment and Plan (1) Near syncope Status: Acute (2) Patella fracture Status: Acute (3) Right orbit fracture Status: Acute (4) Facial contusion Status: Acute Plan: The clinical and x-ray findings are discussed the patient. She is to remain in the knee immobilizer. She may be toe-touch weightbearing with crutches or walker. I will order x-rays of the left shoulder and elbow for further evaluation.
[2016-09-09 11:56] LABS: Glucose,Whole Blood 138 mg/dL (75-99)
[2016-09-09] MEDS: ONDANSETRON ODT 4 MG TAB PO PRN ×2 (11:59→22:28)
[2016-09-09] MEDS: traMADol 50 MG TAB PO PRN (12:07)
--- NOTE | 2016-09-09 12:56 | P.GSCN ---
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 She does not remember the entire incident and this is been reported to her by her and the attendant. After falling down she hit her head and face. She does not completely remember what happened however she says she did not pass out. There's no history of incontinence no history of vomiting or nausea at that time. She was ambulant and taken over to the main [facility] at the time and after that transferred to the hospital in an ambulance. She remained alert awake throughout that period of time she was evaluated in the ER and discharged home. Due to continued lightheadedness dizziness and episodes of severe nausea with headache she was brought back to the hospital last night for evaluation and admission. She continues to have significant amount of nausea intermediate and intermittent moderate to severe headache mostly in the back as well as around the right orbit there is crusting and bleeding from the right which is now settled down but it does feel Fahad to her and feltlike it has been swollen. She's had previous procedures for granulation and granulation tissue or polyps with skin grafting in the past. Patient has a computed previous history with history of gastric bypass and multiple body contouring surgeries after that. Patient does have some altered sensation along the incision on the left upper arm which were consistent with an incision that she has. She also has a swelling of the periumbilical region. She also gives a history of previous history of hernias and hernia repair in the left upper quadrant and around the bellybutton. She also has a history of his facial stricture and at this time although tolerating a diet primary she has been nausea and vomiting. She's not had any bowel movements any diarrhea incontinence and she's been near. She continues to have moderate amount of pain in the right knee which has been immobilized due to her patellar fracture. She does not give any history of any weakness of any particular point at this time except her strength is not there are she says and overall she just does not feel well Review of Systems - Constitutional Constitutional Comment(s): Gives a history of significant amount of sleepiness and she wants to sleep long hours. She does not recall losing consciousness. She continues to be dizzy. She's not been standing up primarily because of her patellar fracture but she does report having dark curtain come before eyes Reports anorexia, Reports fatigue, Reports lethargy, Reports weight loss - EENT Eyes: bilateral loss of vision (Reported intermittent "darkness' coming before her eyes) Ears, nose, mouth and throat: Reports epistaxis, Reports headache, Reports mouth pain, Reports nasal congestion, Reports nose pain, Reports sinus pressure , Reports vertigo, Denies ant. neck pain, Denies bleeding gums, Denies dental pain, Denies dysphagia, Denies hoarseness, Denies nasal discharge, Denies neck fullness/pressure, Denies neck lump, Denies odynophagia, Denies post-nasal drip , Denies sinus pain, Denies swelling in mouth, Denies swelling in throat, Denies sore throat, Denies voice changes - Breasts Breasts Comment(s): normal - Cardiovascular Denies chest pain, Denies edema, Denies high blood pressure, Denies irregular heart beat, Denies shortness of breath - Respiratory Denies congestion, Denies cough, Denies cough with sputum, Denies dyspnea, Denies pain on inspiration, Denies sleep apnea - Gastrointestinal Reports as per HPI, Denies abdominal pain, Denies belching, Denies bloating, Denies BRBPR, Denies change in bowel habits, Denies constipation, Denies diarrhea, Denies hematemesis, Denies hematochezia, Denies indigestion, Denies melena, Denies nausea, Denies vomiting - Musculoskeletal Reports as per HPI, Reports arm numbness/tingling right: knee pain, knee stiffness - Integumentary Integumentary Comment(s): Left forearm bruising. Crusted right nose just right side of the philtrum Reports unusual bruising, Denies rash - Neurological Reports head injury, Reports headaches, Reports loss of vision, Reports memory loss, Reports syncope, Reports tingling, Reports visual changes - Psychiatric Reports hypersomnia - Endocrine Reports as per HPI - Allergic/Immunologic Denies as per HPI, Denies allergic rhinitis, Denies anaphylaxis, Denies angioedema, Denies gluten intolerance, Denies persistent infections, Denies seasonal allergies, Denies urticaria, Denies wheezing Past Medical History Past Medical History: Asthma, Cancer, Heart Failure, COPD, Dementia, Fibromyalgia, GERD/Reflux, GI Bleed, Hyperlipidemia, Memory Impairment, Myocardial Infarction ([place]), Osteoarthritis (OA), Pneumonia, Sleep Apnea/CPAP/ BIPAP Additional Past Medical History / Comment(s): esophageal stricture with balloon stretching. sepsis with pneumonia(recurrent) r/t to GERD causing aspiration pneumonia. skin ca. minor [place] 2 years ago. kidney stone with lithotrpsy. arthritis,rls.pt stated "my normal wt is around 8992-7812 so if i have an infection my white count is actually in a normal range", Hypotension, Anemia Last Myocardial Infarction Date:: 2 years ago approx History of Any Multi-Drug Resistant Organisms: None Reported Past Surgical History: Adenoidectomy, Appendectomy, Breast Surgery, Hernia Repair, Hysterectomy, Tonsillectomy Additional Past Surgical History / Comment(s): lithotrpsy, "stomach bypass secondary to gi bleed, tumor removed from left chao. mulitple skin bx. 3 umbilical hernia repairs, septal repair, 2 lumpectomies right breast both benign Past Anesthesia/Blood Transfusion Reactions: Previous Problems w/ Anesthesia Additional Past Anesthesia/Blood Transfusion Reaction / Comm: bp dips low Past Psychological History: Anxiety, Depression, PTSD Additional Psychological History / Comment(s): secondary to daughter commiting suicide 5 yrs ago. left pt with "shock dementia". 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 Smoking Status: Never smoker Past Alcohol Use History: None Reported Past Drug Use History: None Reported - Past Family History Mother Family Medical History: Cancer Additional Family Medical History / Comment(s): brother, sister and mother all had terminal cancers - breast, esophageal, and pancreatic Medications and Allergies Home Medications Medication Instructions Recorded Confirmed Type ALPRAZolam [Xanax] 2 mg PO TID 12/14/13 09/08/16 History Atorvastatin [Lipitor] 20 mg PO HS 12/14/13 09/08/16 History Dextroamphetamine/Amphetamine 20 mg PO BID 12/14/13 09/08/16 History [Adderall] FLUoxetine HCL [PROzac] 40 mg PO BID 12/14/13 09/08/16 History Omeprazole [PriLOSEC] 40 mg PO BID 09/21/14 09/08/16 History Fluticasone/Salmeterol [Advair 1 puff INHALATION RT-BID 10/05/15 09/08/16 History 500-50 Diskus] Baclofen 10 mg PO Q8H PRN 01/04/16 09/08/16 History QUEtiapine [SEROquel] 100 mg PO HS 01/04/16 09/08/16 History Sucralfate [Carafate] 1 gm PO TID 06/18/16 09/08/16 History traMADol HCL [Ultram] 50 mg PO Q6H PRN 09/07/16 09/08/16 History HYDROcodone/APAP 5-325MG [[place] 1 tab PO Q6HR PRN 09/08/16 09/08/16 History 5-325] Allergies Allergy/AdvReac Type Severity Reaction Status Date / Time adhesive tape AdvReac Skin Verified 09/08/16 20:26 Tearing Surgical - Exam Vital Signs Temp Pulse Resp BP Pulse Ox 98.4 F 73 18 130/59 98 09/08/16 19:32 09/08/16 19:32 09/08/16 19:32 09/08/16 19:32 09/08/16 19:32 - General well developed, moderate distress, moderate pain - Eyes PERRL, no icteric, no deviation - ENT Patient condition and blood in the right side. Tenderness over the right cheek normal pinna - Neck trachea midline - Respiratory normal expansion, normal respiratory effort - Cardiovascular Rhythm: regular - Abdomen Leo umbilical hernia Abdomen: soft, non tender, surgical scars, no guarding, no rigid, no rebound, no distended - Integumentary no rash - Neurologic Review strength probably secondary to overall debility. Bilateral extremity strength at this point is 4 x 5 without any and sensory deficit. Lower extremities which a sensory deficit however mobility was limited due to the pain. No other focal neurological deficit appreciated at this time. normal coordination - Psychiatric oriented to time, oriented to person, oriented to place, speech is normal, memory intact Results - Labs 09/08/16 20:15 09/08/16 20:15 Abnormal Lab Results - Last 24 Hours (Table) 09/09/16 09/09/16 Range/Units 06:25 11:54 POC Glucose (mg/dL) 107 H 138 H (75-99) mg/dL Assessment and Plan (1) Near syncope Status: Acute (2) Patella fracture Status: Acute (3) Right orbit fracture Status: Acute (4) Facial contusion Status: Acute (5) Failure of outpatient treatment Status: Acute (6) Knee contusion Status: Acute (7) Mild traumatic brain injury Status: Acute Plan: From the general surgery trauma perspective the patient is overall stable. I believe her headaches and visual changes secondary to concussion. I've recommended a consultation with Dr. Moses neurologist for evaluation. Dr. Mccauley did see her for her nasal fracture. Her abdominal hernia was inspected and there does not seem to be incarcerated at this time. I've recommended returning to her plastic surgeon Dr. Rodríguez because she may need duplication of her tummy tuck which is probably why she has this herniation rather than a true hernia. The patella she has been addressed by orthopedics. At this time no surgical intervention is needed however await input from neurology
--- NOTE | 2016-09-09 13:08 | XR ---
EXAMINATION TYPE: XR shoulder complete LT DATE OF EXAM: 09/09/2016 12:55 PM COMPARISON: NONE HISTORY: Pain TECHNIQUE: Shoulder examined in 3 FINDINGS: The humeral head articulates with the glenoid. The acromio-clavicular junction is normal. No acute fractures or dislocations are evident. A follow up study can be performed 7-10 days from acute trauma for continued pain. IMPRESSION: 1. Normal Shoulder
--- NOTE | 2016-09-09 13:09 | XR ---
EXAMINATION TYPE: XR elbow complete LT DATE OF EXAM: 09/09/2016 12:55 PM COMPARISON: NONE HISTORY: Fall, pain TECHNIQUE: 3 view left elbow FINDINGS: No acute fractures evident. The radius aligns normally humerus. Anterior fat pad is normal. No elevation posterior fat. Soft tissues are normal. Follow-up study can be performed 7-10 days from acute trauma for continued pain IMPRESSION: 1. Normal three-view left elbow
[2016-09-09 16:40] LABS: Glucose,Whole Blood 97 mg/dL (75-99)
[2016-09-09] MEDS ORDERED: RX INFO: IV CONTRAST WAS GIVEN 1 EACH MISC MISCELLANE PRN (17:31)
--- NOTE | 2016-09-09 17:41 | P.HPIM ---
History of Present Illness H&P Date: 09/09/16 Chief Complaint: Headaches This 61-year-old gentleman with multiple medical problems initially sustained a fall after tripping over while pumping gas. Patient fell on her face and injured it. Patient was thereafter evaluated in the ER was noted to have a orbital fracture. However is nondisplaced hence was discharged home to follow- up with her primary care physician. Patient's primary care however evaluated the patient was noted to have some clear nasal discharge and hence was sent back in the hospital for ongoing care. Patient was noted to have a right patellar fracture as well. Patient was evaluated by orthopedics. since her incident 2 days ago patient has been having a diffuse headache and there is some reported change in vision. Patient states her vision is blurry bilaterally. Her that she is getting more concerned in regards to her vision. Patient states that she notices some blood and other clear material coming through herwhen she bends forward. Patient has a history of multiple nasal septal surgeries due to granulomas in the past apparently. Patient denies having any chest pain, difficulty breathing, nausea, vomiting, diarrhea. Of note patient does state to have some blackouts in the past. However this incident appears to be mechanical fall. States to get dizzy intermittently at this time. Review of Systems All systems: negative Past Medical History Past Medical History: Asthma, Cancer, Heart Failure, COPD, Dementia, Fibromyalgia, GERD/Reflux, GI Bleed, Hyperlipidemia, Memory Impairment, Myocardial Infarction ([place]), Osteoarthritis ([place]), Pneumonia, Sleep Apnea/CPAP/ BIPAP Additional Past Medical History / Comment(s): esophageal stricture with balloon stretching. sepsis with pneumonia(recurrent) r/t to GERD causing aspiration pneumonia. skin ca. minor [place] 2 years ago. kidney stone with lithotrpsy. arthritis,rls.pt stated "my normal wt is around 3433-8405 so if i have an infection my white count is actually in a normal range", Hypotension, Anemia Last Myocardial Infarction Date:: 2 years ago approx History of Any Multi-Drug Resistant Organisms: None Reported Past Surgical History: Adenoidectomy, Appendectomy, Breast Surgery, Hernia Repair, Hysterectomy, Tonsillectomy Additional Past Surgical History / Comment(s): lithotrpsy, "stomach bypass secondary to gi bleed, tumor removed from left chao. mulitple skin bx. 3 umbilical hernia repairs, septal repair, 2 lumpectomies right breast both benign Past Anesthesia/Blood Transfusion Reactions: Previous Problems w/ Anesthesia Additional Past Anesthesia/Blood Transfusion Reaction / Comment(s): bp dips low Past Psychological History: Anxiety, Depression, PTSD Additional Psychological History / Comment(s): secondary to daughter commiting suicide 5 yrs ago. left pt with "shock dementia". 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 Smoking Status: Never smoker Past Alcohol Use History: None Reported Past Drug Use History: None Reported - Past Family History Mother Family Medical History: Cancer Additional Family Medical History / Comment(s): brother, sister and mother all had terminal cancers - breast, esophageal, and pancreatic Medications and Allergies Home Medications Medication Instructions Recorded Confirmed Type ALPRAZolam [Xanax] 2 mg PO TID 12/14/13 09/08/16 History Atorvastatin [Lipitor] 20 mg PO HS 12/14/13 09/08/16 History Dextroamphetamine/Amphetamine 20 mg PO BID 12/14/13 09/08/16 History [Adderall] FLUoxetine HCL [PROzac] 40 mg PO BID 12/14/13 09/08/16 History Omeprazole [PriLOSEC] 40 mg PO BID 09/21/14 09/08/16 History Fluticasone/Salmeterol [Advair 1 puff INHALATION RT-BID 10/05/15 09/08/16 History 500-50 Diskus] Baclofen 10 mg PO Q8H PRN 01/04/16 09/08/16 History QUEtiapine [SEROquel] 100 mg PO HS 01/04/16 09/08/16 History Sucralfate [Carafate] 1 gm PO TID 06/18/16 09/08/16 History traMADol HCL [Ultram] 50 mg PO Q6H PRN 09/07/16 09/08/16 History HYDROcodone/APAP 5-325MG [[place] 1 tab PO Q6HR PRN 09/08/16 09/08/16 History 5-325] Allergies Allergy/AdvReac Type Severity Reaction Status Date / Time adhesive tape AdvReac Skin Verified 09/08/16 20:26 Tearing Physical Exam Vitals: Vital Signs Temp Pulse Pulse Resp BP BP Pulse Ox 09/09/16 12:00 98.7 F 73 16 109/56 95 09/09/16 08:00 99.3 F 76 18 102/59 96 09/09/16 04:00 57 L 18 133/70 97 09/09/16 00:10 97.2 F L 77 18 147/64 98 09/08/16 23:17 97.6 F 81 20 116/75 97 09/08/16 22:54 72 18 112/71 98 Intake and Output 09/09/16 09/09/16 09/09/16 06:59 14:59 22:59 Intake Total 450 Balance 450 Intake: IV 450 Sodium Chloride 0.9% 1, 450 000 ml @ 75 mls/hr IV . [id number] STA Rx#:[id number] Other: Voiding Method Bedside Commode # Bowel Movements 1 Weight 89.8 kg Gen. appearance alert oriented 3 Tenderness to palpation diffusely throughout the face Nose there is dried blood that is noted tenderness to palpation across the nasal bridge Neck is supple no JVD Heart S1-S2 heard regular rate and rhythm no murmurs appreciated Lungs good air entry clear to auscultation no rhonchi or wheezing Abdomen soft nontender organomegaly. Previous surgical scars noted. Lower extremities there is a bandage wrapped around the right knee. No edema appreciated Neuro no focal motor or sensory deficits noted. Results CBC & Chem 7: 09/08/16 20:15 09/08/16 20:15 Labs: Abnormal Lab Results - Last 24 Hours (Table) 09/09/16 09/09/16 Range/Units 06:25 11:54 POC Glucose (mg/dL) 107 H 138 H (75-99) mg/dL Thrombosis Risk Factor Assmnt - Choose All That Apply Any of the Below Risk Factors Present?: No Other Risk Factors: Yes Each Risk Factor Represents 2 Points: Age 61-74 years, Patient confined to bed Each Risk Factor Represents 5 Points: Hip, pelvis, or leg fracture (< 1 month) Thrombosis Risk Factor Assessment Total Risk Factor Score: 9 Thrombosis Risk Factor Assessment Level: High Risk Assessment and Plan Plan: #1 mechanical fall #2 history of syncopal episodes. #3 orbital fracture #4 patellar fracture #5 history of hypertension #6 COPD #7 (gastric bypass surgery #8 for nasal surgeries in the past Plan We'll obtain a neurology and ENT consultation. We'll have the patient on phototypesetting equipment monitor we'll obtain echocardiogram. The incident however this time appears to be mechanical in nature however patient does complain of blackouts in the past I will obtain a CT of the head with and without contrast patient does complain of some complains of headache and then not clear liquid, and through to rule out CSF rhinorrhea. Pain control Orthopedics evaluation was done and recommendations are appreciated. We'll follow PT OT consultation.
--- NOTE | 2016-09-09 18:08 | P.CNNES ---
History of Present Illness Consult date: 09/09/16 Reason for Consult: Patient with head concussion and closed head injury. History of Present Illness: This patient is a 61-year-old right-handed white female who apparently on was at the local gas station pumping gas. She had walked across the way to make payment for her gas purchase. On her way back to her vehicle she tripped which she states was due to hitting a raised area of cement on the pathway. This caused her to fall forward and she fell into a post that was next to the gas pump. Her tried to get out of the car to assist her but apparently was not quick enough. She apparently fell forward hip the post and then fell flat onto her face. When the went to her side he noticed she was bleeding from the nose and seem to be somewhat days. Patient is unsure whether she may have passed out but clearly felt dizzy and lightheaded when she was talking to her . Apparently this happened at the [facility] [employer]. The attendant immediately took her to the main grocery store where incident report was filed. The fish farm manager immediately called EMS to the store for her to be taken to the hospital. The patient was seen in the emergency room on . She was seen by Dr. Zheng and apparently had several x-rays taken. She was felt to have suffered a concussion and she was advised to do some pain medications and was discharged from the ER. The next day which was Sunday morning she continued to feel dizzy and lightheaded. She went to see her primary care physician Dr. Faulkner who insisted that she should return to the emergency room for reassessment. The patient was seen back in the ER yesterday by Dr. Bailey. Computed tomography scan of the head was performed as well as the right knee. She was found to have evidence of a right orbital fracture as well as a patellar fracture to the right knee. Patient was seen by orthopedic surgery today. She is also been evaluated by the ENT specialist Dr. Walter. She is to be seen for ongoing symptoms of vertigo and right orbital fracture. Patient states that this morning when she was sitting up to eat her breakfast and lunch she noted slight clear fluid running through her left nostril. This happened on 3 occasions this morning. When she lays down the symptoms seem to completely resolved. We did have her sit up for a half hour today while she was eating her dinner and there was no evidence of any fluid leakage through the left nostril at this time. We have recommended ENT to be consult and possible endoscopy to further evaluate for fracture and nasal drip. Neurologically she complains of headache mostly involving the head and neck area. She did not receive any lacerations to the scalp. As mentioned CAT scan of the brain revealed no acute intracranial hemorrhage or mass effect. There was no evidence of any calvarial fracture. The patient rates her current headache is 5/10 in intensity. She feels a pressure in the upper neck and shoulder region. She has no previous history of head trauma or head injury. The patient does have a history of underlying fibromyalgia. She also has a diagnosis of obstructive sleep apnea for which she uses CPAP. The patient overall is moving all extremities. Since yesterday she has had 4 episodes of near-syncope. She describes this as a sense of lightheadedness and near passing out. This likely is due to some degree of posttraumatic labyrinthitis. We've explained this condition in detail to the patient. We will await further recommendations from ENT in regards to this condition and treatment. Neurology is now been consulted for further evaluation and recommendations. Review of Systems Constitutional: Denies chills, Denies fever Eyes: denies blurred vision, denies pain Ears, nose, mouth and throat: Reports epistaxis, Reports nasal discharge, Reports vertigo, Denies headache, Denies sore throat Cardiovascular: Denies chest pain, Denies shortness of breath Respiratory: Denies cough Gastrointestinal: Denies abdominal pain, Denies diarrhea, Denies nausea, Denies vomiting Genitourinary: Denies dysuria, Denies hematuria Musculoskeletal: Denies myalgias Integumentary: Denies pruritus, Denies rash Neurological: Reports confusion, Reports headaches, Reports syncope, Reports vertigo, Denies numbness, Denies weakness Psychiatric: Denies anxiety, Denies depression Endocrine: Denies fatigue, Denies weight change Past Medical History Past Medical History: Asthma, Cancer, Heart Failure, COPD, Dementia, Fibromyalgia, GERD/Reflux, GI Bleed, Hyperlipidemia, Memory Impairment, Myocardial Infarction (RI), Osteoarthritis (OA), Pneumonia, Sleep Apnea/CPAP/ BIPAP Additional Past Medical History / Comment(s): esophageal stricture with balloon stretching. sepsis with pneumonia(recurrent) r/t to GERD causing aspiration pneumonia. skin ca. minor RI 2 years ago. kidney stone with lithotrpsy. arthritis,rls.pt stated "my normal wt is around [id number] so if i have an infection my white count is actually in a normal range", Hypotension, Anemia Last Myocardial Infarction Date:: 2 years ago approx History of Any Multi-Drug Resistant Organisms: None Reported Past Surgical History: Adenoidectomy, Appendectomy, Breast Surgery, Hernia Repair, Hysterectomy, Tonsillectomy Additional Past Surgical History / Comment(s): lithotrpsy, "stomach bypass secondary to gi bleed, tumor removed from left chao. mulitple skin bx. 3 umbilical hernia repairs, septal repair, 2 lumpectomies right breast both benign Past Anesthesia/Blood Transfusion Reactions: Previous Problems w/ Anesthesia Additional Past Anesthesia/Blood Transfusion Reaction / Comment(s): bp dips low Past Psychological History: Anxiety, Depression, PTSD Additional Psychological History / Comment(s): secondary to daughter commiting suicide 5 yrs ago. left pt with "shock dementia". 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 Smoking Status: Never smoker Past Alcohol Use History: None Reported Past Drug Use History: None Reported - Past Family History Mother Family Medical History: Cancer Additional Family Medical History / Comment(s): brother, sister and mother all had terminal cancers - breast, esophageal, and pancreatic Medications and Allergies Home Medications Medication Instructions Recorded Confirmed Type ALPRAZolam [Xanax] 2 mg PO TID 12/14/13 09/08/16 History Atorvastatin [Lipitor] 20 mg PO HS 12/14/13 09/08/16 History Dextroamphetamine/Amphetamine 20 mg PO BID 12/14/13 09/08/16 History [Adderall] FLUoxetine HCL [PROzac] 40 mg PO BID 12/14/13 09/08/16 History Omeprazole [PriLOSEC] 40 mg PO BID 09/21/14 09/08/16 History Fluticasone/Salmeterol [Advair 1 puff INHALATION RT-BID 10/05/15 09/08/16 History 500-50 Diskus] Baclofen 10 mg PO Q8H PRN 01/04/16 09/08/16 History QUEtiapine [SEROquel] 100 mg PO HS 01/04/16 09/08/16 History Sucralfate [Carafate] 1 gm PO TID 06/18/16 09/08/16 History traMADol HCL [Ultram] 50 mg PO Q6H PRN 09/07/16 09/08/16 History HYDROcodone/APAP 5-325MG [[place] 1 tab PO Q6HR PRN 09/08/16 09/08/16 History 5-325] Allergies Allergy/AdvReac Type Severity Reaction Status Date / Time adhesive tape AdvReac Skin Verified 09/08/16 20:26 Tearing Physical Examination - Vital Signs Vital Signs: Vital Signs Temp Pulse Pulse Resp BP BP Pulse Ox 09/09/16 08:00 99.3 F 76 18 102/59 96 09/09/16 04:00 57 L 18 133/70 97 09/09/16 00:10 97.2 F L 77 18 147/64 98 09/08/16 23:17 97.6 F 81 20 116/75 97 09/08/16 22:54 72 18 112/71 98 Intake and Output 09/08/16 09/09/16 09/09/16 22:59 06:59 14:59 Intake Total 450 Balance 450 Intake: IV 450 Sodium Chloride 0.9% 1, 450 000 ml @ 75 mls/hr IV . [id number] STA Rx#:[id number] Other: Voiding Method Bedside Commode Weight 89.8 kg - Constitutional General appearance: average body habitus, cooperative - EENT EENT: mucous membranes moist - Respiratory Respiratory: lungs clear, normal breath sounds - Cardiovascular Cardiovascular: regular rate, normal S1, normal S2 Extremities: no peripheral edema bilaterally - Gastrointestinal Gastrointestinal: normoactive bowel sounds - Integumentary Integumentary: normal - Neurologic Cranial nerve examination: PERRL, EOMI, VFF, V1/V2/V3 grossly intact, face symmetric, intact shoulder shrug, intact gag reflex, intact corneal reflex, normal palatal elevation Speech examination: intact Sensorimotor examination: intact Detailed motor examination: grossly full strength in all extremities Motor examination - right side: 5/5: biceps, triceps, wrist flexion, wrist extension, stone cutter, hip flexors, knee extensors, dorsiflexion, toe extension (EHL) , plantarflexion Motor examination - left side: 4/5: biceps, triceps, wrist flexion, wrist extension, stone cutter, 5/5: hip flexors, knee extensors, dorsiflexion, toe extension ( EHL), plantarflexion Detailed sensory examination: intact Reflex and gait examination: intact Reflexes: 1+: ankle, bicep, knee, tricep - Musculoskeletal Musculoskeletal: no pain - Psychiatric Psychiatric: mood/affect appropriate, cooperative Results - Laboratory Findings CBC and BMP: 09/08/16 20:15 09/08/16 20:15 Abnormal Lab Findings: Abnormal Labs 09/09/16 09/09/16 06:25 11:54 POC Glucose (mg/dL) 107 H 138 H Assessment and Plan (1) Closed head injury with concussion Status: Acute Code(s): S06.0X9A - CONCUSSION W LOSS OF CONSCIOUSNESS OF UNSP DURATION, INIT (2) Near syncope Status: Acute Code(s): R55 - SYNCOPE AND COLLAPSE (3) Patella fracture Status: Acute Code(s): S82.009A - UNSP FRACTURE OF UNSP PATELLA, INIT FOR CLOS FX (4) Right orbit fracture Status: Acute Code(s): S02.81XA - FRACTURE OF OTH SKULL AND FACIAL BONES, RIGHT SIDE, INIT (5) Facial contusion Status: Acute Code(s): S00.83XA - CONTUSION OF OTHER PART OF HEAD, INITIAL ENCOUNTER Plan: This patient is a 61-year-old female who sustained a fall at a gas station on of this past week. She struck her head on a post and apparently fell face forward onto the cement. She had tripped on some raised cement near the gas pump area. Her had witnessed the fall. She did not seem to have any loss of consciousness but was clearly somewhat confused following the closed head injury. She developed severe bleeding from the nose as well as some facial contusions. She was taken to the [employer] store where the fish farm manager called EMS immediately. Incident report was filed. EMS arrived and brought the patient to the emergency room on . She was seen in the ER by Dr. Zheng. Several x-rays were done and she was told that she suffered a head concussion and was able to be discharged from the ER. She went home and on Sunday morning continued to feel very lightheaded and dizzy. She had for near syncopal episodes. She was advised to return to the emergency room by her primary care physician Dr. Faulkner. Patient was subsequently admitted to the hospital yesterday for further evaluation. She was seen in the ER by Dr. Bailey. All of her test results were reviewed with her and she was advised admission to the hospital. She underwent x-rays which revealed evidence of a right patellar fracture. Computed tomography scan of the brain revealed no acute intracranial hemorrhage or mass effect. There was no evidence of any skull bone fracture. Patient was admitted for further evaluation of head trauma and closed head injury. She is been seen by orthopedic surgery. She did sustain a right orbital fracture for which she is to see the ENT specialist Dr. Walter. Her neurological examination reveals slight left upper extremity weakness. She is being evaluated by orthopedic surgery for possible fractures. She did complain of some clear fluid leak from the left nostril that only occurred this morning. We are monitoring this and she has had no further episodes today. We have recommended the patient to undergo an MRI of the brain as well as a computed tomography scan of the cervical spine. We will continue to monitor for any changes in terms of her mental status. Her clinical history is consistent with head concussion and mild posttraumatic vertigo. We will await further recommendations from ENT regarding any further treatment plan. The patient has evidence of posttraumatic vertigo as well as posttraumatic headache syndrome. We will continue close neurological follow-up for this patient during this admission. We would recommend close neuro checks for this patient. Her overall prognosis at this time remains guarded. Time with Patient: Greater than 30
--- NOTE | 2016-09-09 20:28 | CT ---
EXAMINATION TYPE: CT brain wo/w con DATE OF EXAM: 09/09/2016 8:19 PM COMPARISON: 09/08/2016 HISTORY: Multiple syncopal episodes with possible injuries., CSF rhinorrhea CT DLP: 2361.8 mGycm, Automated exposure control for dose reduction was used. CONTRAST: Patient injected with 100 mL of Omnipaque 300. CT of the brain is performed utilizing 3 mm thick sections through the posterior fossa and 3 mm thick sections through the remaining calvarium. Study is not performed within 24 hours of arrival to the hospital. No abnormal hyperdensity is present to suggest an acute intracranial hemorrhage. No mass lesion is evident. Physiologic basal ganglion calcification is present bilaterally. No acute infarcts are evident. No skull base or performed plate fractures are identified. No abnorma l fluid collections within the paranasal sinuses or mastoid air cells are identified. No skull base f ractures are identified. Ventricles and sulci are appropriate for the patient age. Paranasal sinuses and mastoid air cells within the [id number] are clear. IMPRESSIONS: 1. No acute intracranial process.
--- NOTE | 2016-09-09 20:30 | CT ---
EXAMINATION TYPE: CT cervical spine wo con DATE OF EXAM: 09/09/2016 8:19 PM COMPARISON: NONE HISTORY: Multiple syncopal episodes with possible injuries. CT DLP: 304.9 mGycm Automated exposure control for dose reduction was used. TECHNIQUE: CT scan of the cervical spine is obtained without contrast, axial images are obtained, sa gittal and coronal reformatted images are also reviewed. FINDINGS: No acute fractures are evident. Uncovertebral joint hypertrophy is within the mid to lower cervical spine contributing to some mild foraminal narrowing. No spinal canal stenosis is present. No focal disc herniations or significant disc bulges are evident. Odontoid is unremarkable. Disc height is narrowed C5-6 and C6-7. Remaining disc heights are preserved . Anterior vertebral body spurring is present at C5 and C6. IMPRESSION: 1. No acute osseous abnormality. 2. Mild degenerative changes.
[2016-09-09 21:35] LABS: Glucose,Whole Blood 85 mg/dL (75-99)
[2016-09-09] MEDS: QUEtiapine 100 MG TAB PO SCH (21:40)
[2016-09-09] MEDS: ATORVASTATIN 20 MG TAB PO SCH (21:40)
[2016-09-10 02:03] LABS: Glucose,Whole Blood 93 mg/dL (75-99)
[2016-09-10 06:23] LABS: Glucose,Whole Blood 100 mg/dL (75-99)
[2016-09-10 06:37] LABS: Basophils % (A) 1 %; CH 30.9; CHCM 31.4; Eosinophils # (A) 0.1 k/uL (0-0.7); Eosinophils % (A) 5 %; HCT 34.3 % (34.0-46.0); HGB 10.8 gm/dL (11.4-16.0); Luc # (Auto) 0.05; Luc % (Auto) 2; Lymphocytes # (A) 0.8 k/uL (1.0-4.8); Lymphocytes % (A) 34 %; MCH 31.1 pg (25.0-35.0); MCHC 31.4 g/dL (31.0-37.0); MCV 98.8 fL (80.0-100.0); Mean Platelet Volume 8.4; Monocytes # (A) 0.2 k/uL (0-1.0); Monocytes % (A) 7 %; Neutrophils # (A) 1.2 k/uL (1.3-7.7); Neutrophils % (A) 52 %; RBC 3.47 m/uL (3.80-5.40); RDW 12.5 % (11.5-15.5); WBC 2.3 k/uL (3.8-10.6); WBC (Perox) 2.33
[2016-09-10 06:50] LABS: ALT 28 U/L (9-52); AST 17 U/L (14-36); Alkaline Phosphatase 58 U/L (38-126); Anion Gap 6 mmol/L; Blood Urea Nitrogen 14 mg/dL (7-17); Calcium 8.3 mg/dL (8.4-10.2); Carbon Dioxide 27 mmol/L (22-30); Chloride 108 mmol/L (98-107); Glucose 95 mg/dL (74-99); Non-African American GFR(MDRD) >60 (>60 ml/min/1.73 sqM); Sodium 141 mmol/L (137-145); Total Bilirubin 0.4 mg/dL (0.2-1.3); Total Protein 5.1 g/dL (6.3-8.2)
[2016-09-10] MEDS: HYDROcodone/APAP 5-325MG 1 EACH TAB PO PRN ×2 (07:28→14:16)
[2016-09-10] MEDS: SYMBICORT 160-4.5 MCG INHALER INHALATION SCH ×3 (09:11→19:53)
[2016-09-10] MEDS: FLUoxetine HCL 20 MG CAP PO SCH ×2 (09:59→20:54)
[2016-09-10] MEDS: ALPRAZolam 0.5 MG TAB PO SCH ×3 (09:59→20:54)
[2016-09-10] MEDS: SUCRALFATE 1 GM TAB PO SCH ×3 (09:59→20:54)
[2016-09-10] MEDS: PANTOPRAZOLE 40 MG TABLET PO SCH ×2 (09:59→20:54)
--- NOTE | 2016-09-10 10:24 | P.PN ---
Subjective Principal diagnosis: Concussion with facial fractures and patellar fracture Patient continues to have headaches and nausea. She reported more nasal discharge that was minimal yesterday from the left nares but was unable to save it for the nursing staff. Headaches persist. No further visual changes, or progression in weakness . Objective - Vital Signs Vital signs: Vital Signs Temp 98.2 F 09/09/16 20:00 Pulse 79 09/10/16 04:00 Resp 18 09/10/16 04:00 BP 111/59 09/10/16 04:00 Pulse Ox 95 09/10/16 04:00 Intake & Output 09/09/16 09/10/16 09/10/16 18:59 06:59 18:59 Intake Total 900 120 Balance 900 120 Weight 89.8 kg Intake: IV 900 Sodium Chloride 0.9% 1, 900 000 ml @ 75 mls/hr IV . [id number] STA Rx#:[id number] Oral 120 Other: Voiding Method Bedside Commode # Voids 1 # Bowel Movements 1 - Constitutional General appearance: Present: mild distress - Gastrointestinal Gastrointestinal Comment(s): soft and non tneder - Neurologic Neurologic Comment(s): no new changes. Neurologic: Present: CNII-XII intact - Labs CBC & Chem 7: 09/10/16 06:10 09/10/16 06:10 Labs: Abnormal Lab Results - Last 24 Hours (Table) 09/09/16 09/10/16 09/10/16 Range/Units 11:54 06:10 06:10 WBC 2.3 L (3.8-10.6) k/uL RBC 3.47 L (3.80-5.40) m/uL Hgb 10.8 L (11.4-16.0) gm/dL Plt Count 134 L (150-450) k/uL Neutrophils # 1.2 L (1.3-7.7) k/uL Lymphocytes # 0.8 L (1.0-4.8) k/uL Chloride 108 H (98-107) mmol/L POC Glucose (mg/dL) 138 H (75-99) mg/dL Calcium 8.3 L (8.4-10.2) mg/dL Total Protein 5.1 L (6.3-8.2) g/dL Albumin 2.8 L (3.5-5.0) g/dL 09/10/16 Range/Units 06:20 WBC (3.8-10.6) k/uL RBC (3.80-5.40) m/uL Hgb (11.4-16.0) gm/dL Plt Count (150-450) k/uL Neutrophils # (1.3-7.7) k/uL Lymphocytes # (1.0-4.8) k/uL Chloride (98-107) mmol/L POC Glucose (mg/dL) 100 H (75-99) mg/dL Calcium (8.4-10.2) mg/dL Total Protein (6.3-8.2) g/dL Albumin (3.5-5.0) g/dL Assessment and Plan (1) Near syncope Status: Acute (2) Patella fracture Status: Acute (3) Right orbit fracture Status: Acute (4) Facial contusion Status: Acute (5) Failure of outpatient treatment Status: Acute (6) Knee contusion Status: Acute (7) Mild traumatic brain injury Status: Acute Plan: CT head and C spine was without any acute injury Stable from the surgical standpoint. Continue neuro checks. Concussion management per Neurology. Await ENT evaluation Will follow as needed
--- NOTE | 2016-09-10 11:24 | P.PN ---
Subjective Principal diagnosis: Right patella fracture Syncopal episode This is a 61-year-old female who is admitted with syncopal episode. She has a nondisplaced right patellar fracture. She also complaining of left arm pain. X -rays were taken yesterday of the shoulder and elbow which are negative. She has no new complaints or concerns today. Objective - Vital Signs Vital signs: Vital Signs Temp 98.2 F 09/09/16 20:00 Pulse 79 09/10/16 04:00 Resp 18 09/10/16 04:00 BP 111/59 09/10/16 04:00 Pulse Ox 95 09/10/16 04:00 Intake & Output 09/09/16 09/10/16 09/10/16 18:59 06:59 18:59 Intake Total 900 120 Balance 900 120 Weight 89.8 kg Intake: IV 900 Sodium Chloride 0.9% 1, 900 000 ml @ 75 mls/hr IV . [id number] STA Rx#:[id number] Oral 120 Other: Voiding Method Bedside Commode # Voids 1 # Bowel Movements 1 - Exam This is a pleasant 61-year-old female in no acute distress. She is alert and oriented 3. Exam of the right lower extremity reveals that her knee immobilizer is in place. There is mild swelling to the right knee. She has full foot ankle motion without difficulty or pain. Neurovascular status to the right lower extremity is intact. Exam of the left upper extremity reveals full motion of the shoulder elbow with pain. There is pain on palpation about the triceps muscle and the triceps tendon insertion on the olecranon. Neurovascular status the upper extremity is intact. - Labs CBC & Chem 7: 09/10/16 06:10 09/10/16 06:10 Labs: Abnormal Lab Results - Last 24 Hours (Table) 09/09/16 09/10/16 09/10/16 Range/Units 11:54 06:10 06:10 WBC 2.3 L (3.8-10.6) k/uL RBC 3.47 L (3.80-5.40) m/uL Hgb 10.8 L (11.4-16.0) gm/dL Plt Count 134 L (150-450) k/uL Neutrophils # 1.2 L (1.3-7.7) k/uL Lymphocytes # 0.8 L (1.0-4.8) k/uL Chloride 108 H (98-107) mmol/L POC Glucose (mg/dL) 138 H (75-99) mg/dL Calcium 8.3 L (8.4-10.2) mg/dL Total Protein 5.1 L (6.3-8.2) g/dL Albumin 2.8 L (3.5-5.0) g/dL 09/10/16 Range/Units 06:20 WBC (3.8-10.6) k/uL RBC (3.80-5.40) m/uL Hgb (11.4-16.0) gm/dL Plt Count (150-450) k/uL Neutrophils # (1.3-7.7) k/uL Lymphocytes # (1.0-4.8) k/uL Chloride (98-107) mmol/L POC Glucose (mg/dL) 100 H (75-99) mg/dL Calcium (8.4-10.2) mg/dL Total Protein (6.3-8.2) g/dL Albumin (3.5-5.0) g/dL Assessment and Plan (1) Near syncope Status: Acute (2) Patella fracture Status: Acute (3) Right orbit fracture Status: Acute (4) Facial contusion Status: Acute Plan: The clinical and x-ray findings are discussed the patient. She is to remain in the knee immobilizer. She may be toe-touch weightbearing with crutches or walker. She is to follow-up in 10-14 days for re-x-ray and evaluation.
[2016-09-10 11:59] LABS: Glucose,Whole Blood 166 mg/dL (75-99)
--- NOTE | 2016-09-10 13:25 | P.PN ---
Subjective This patient is a 61-year-old female who was seen on neurology consultation yesterday for mild traumatic brain injury. Patient had sustained a fall in which she tripped and fell forward and struck her face on a pole. She sustained bleeding and contusions to the face as well as a right orbital fracture. Following this she has been having recurrent dizziness and lightheadedness as well as near syncope. We have recommended an MRI of the brain to be done for further evaluation to rule out head contusion. Computed tomography scan of the brain failed to reveal any acute changes. Patient was sent for a computed tomography scan of the cervical spine yesterday as she was complaining of left arm pain. CT revealed no acute osseous abnormality. There was mild degenerative changes noted. Orthopedic surgery is also following the patient for a bright patellar fracture. This is a nondisplaced fracture. She is to continue to use a knee immobilizer at this time. Patient was complaining of mild discharge from the left nostril yesterday. Apparently this seems to wax and wane. We are waiting ENT consultation for further evaluation of this finding. She also is to be evaluated for right orbital fracture as well. Neurologically she remains intact. We will await further imaging studies which include the MRI of the brain which likely will be done tomorrow. We will also obtain routine EEG for further assessment of near syncope. We are waiting further evaluation from ENT regarding nasal discharge and orbital fracture. Patient otherwise seems to be doing fairly well but still complains of mild headache. We will continue close neurological follow-up for the patient during this admission. Objective - Vital Signs Vital signs: Vital Signs Temp 98.2 F 09/09/16 20:00 Pulse 79 09/10/16 04:00 Resp 18 09/10/16 04:00 BP 111/59 09/10/16 04:00 Pulse Ox 95 09/10/16 04:00 Intake & Output 09/09/16 09/10/16 09/10/16 18:59 06:59 18:59 Intake Total 900 120 Balance 900 120 Weight 89.8 kg Intake: IV 900 Sodium Chloride 0.9% 1, 900 000 ml @ 75 mls/hr IV . [id number] STA Rx#:[id number] Oral 120 Other: Voiding Method Bedside Commode # Voids 1 # Bowel Movements 1 - Exam Physical examination: PHYSICAL EXAMINATION: Patient is resting comfortably in bed. VITAL SIGNS: Blood pressure is [112/59]. Heart rate is [79]. Respiration is [18] . Temperature is [98.2]. HEENT: Head is atraumatic, neck is supple, there were no carotid bruits. CHEST: Lungs are clear to auscultation and percussion. CARDIAC: S1, S2 normal rate and rhythm. There is no murmur. ABDOMEN: Soft and nontender. Bowel sounds are present. EXTREMITIES: There is no pedal edema. Peripheral pulses are present. Neurological examination: Patient's neurological examination is unchanged from yesterday. She is not noted during examination at this time to have any discharge from the left nostril. - Labs CBC & Chem 7: 09/10/16 06:10 09/10/16 06:10 Labs: Abnormal Lab Results - Last 24 Hours (Table) 09/10/16 09/10/16 09/10/16 Range/Units 06:10 06:10 06:20 WBC 2.3 L (3.8-10.6) k/uL RBC 3.47 L (3.80-5.40) m/uL Hgb 10.8 L (11.4-16.0) gm/dL Plt Count 134 L (150-450) k/uL Neutrophils # 1.2 L (1.3-7.7) k/uL Lymphocytes # 0.8 L (1.0-4.8) k/uL Chloride 108 H (98-107) mmol/L POC Glucose (mg/dL) 100 H (75-99) mg/dL Calcium 8.3 L (8.4-10.2) mg/dL Total Protein 5.1 L (6.3-8.2) g/dL Albumin 2.8 L (3.5-5.0) g/dL 09/10/16 Range/Units 11:57 WBC (3.8-10.6) k/uL RBC (3.80-5.40) m/uL Hgb (11.4-16.0) gm/dL Plt Count (150-450) k/uL Neutrophils # (1.3-7.7) k/uL Lymphocytes # (1.0-4.8) k/uL Chloride (98-107) mmol/L POC Glucose (mg/dL) 166 H (75-99) mg/dL Calcium (8.4-10.2) mg/dL Total Protein (6.3-8.2) g/dL Albumin (3.5-5.0) g/dL Assessment and Plan (1) Closed head injury with concussion Status: Acute Code(s): S06.0X9A - CONCUSSION W LOSS OF CONSCIOUSNESS OF UNSP DURATION, INIT (2) Near syncope Status: Acute Code(s): R55 - SYNCOPE AND COLLAPSE (3) Patella fracture Status: Acute Code(s): S82.009A - UNSP FRACTURE OF UNSP PATELLA, INIT FOR CLOS FX (4) Right orbit fracture Status: Acute Code(s): S02.81XA - FRACTURE OF OTH SKULL AND FACIAL BONES, RIGHT SIDE, INIT (5) Facial contusion Status: Acute Code(s): S00.83XA - CONTUSION OF OTHER PART OF HEAD, INITIAL ENCOUNTER Plan: This patient is a 61-year-old female who sustained a fall at a gas station on of this past week. She struck her head on a post and apparently fell face forward onto the cement. She had tripped on some raised cement near the gas pump area. Her had witnessed the fall. She did not seem to have any loss of consciousness but was clearly somewhat confused following the closed head injury. She developed severe bleeding from the nose as well as some facial contusions. She was taken to the [employer] store where the regional service manager called EMS immediately. Incident report was filed. EMS arrived and brought the patient to the emergency room on . She was seen in the ER by Dr. Zheng. Several x-rays were done and she was told that she suffered a head concussion and was able to be discharged from the ER. She went home and on Sunday morning continued to feel very lightheaded and dizzy. She had for near syncopal episodes. She was advised to return to the emergency room by her primary care physician Dr. Faulkner. Patient was subsequently admitted to the hospital yesterday for further evaluation. She was seen in the ER by Dr. Bailey. All of her test results were reviewed with her and she was advised admission to the hospital. She underwent x-rays which revealed evidence of a right patellar fracture. Computed tomography scan of the brain revealed no acute intracranial hemorrhage or mass effect. There was no evidence of any skull bone fracture. Patient was admitted for further evaluation of head trauma and closed head injury. She is been seen by orthopedic surgery. She did sustain a right orbital fracture for which she is to see the ENT specialist Dr. Walter. Her neurological examination reveals slight left upper extremity weakness. She is being evaluated by orthopedic surgery for possible fractures. She did complain of some clear fluid leak from the left nostril that only occurred yesterday morning. We are monitoring this and she has had no further episodes today. She did undergo computed tomography scan of the cervical spine yesterday which failed to reveal any acute fracture or dislocation. We have recommended the patient to undergo an MRI of the brain as well as a computed tomography scan of the cervical spine. We will continue to monitor for any changes in terms of her mental status. Her clinical history is consistent with head concussion and mild posttraumatic vertigo. We will await further recommendations from ENT regarding any further treatment plan. Patient still awaiting evaluation from ENT regarding nasal discharge and right orbital fracture. We will await ENT his final recommendations. The patient has evidence of posttraumatic vertigo as well as posttraumatic headache syndrome. We will continue close neurological follow-up for this patient during this admission. We would recommend close neuro checks for this patient. Her overall prognosis at this time remains guarded.
--- NOTE | 2016-09-10 15:39 | P.PN ---
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 Patient fell on her face and injured it. Patient was thereafter evaluated in the ER was noted to have a orbital fracture. However is nondisplaced hence was discharged home to follow- up with her primary care physician. Patient's primary care however evaluated the patient was noted to have some clear nasal discharge and hence was sent back in the hospital for ongoing care. Patient was noted to have a right patellar fracture as well. Patient was evaluated by orthopedics. since her incident 2 days ago patient has been having a diffuse headache and there is some reported change in vision. Patient states her vision is blurry bilaterally. Her that she is getting more concerned in regards to her vision. Patient states that she notices some blood and other clear material coming through herwhen she bends forward. Patient has a history of multiple nasal septal surgeries due to granulomas in the past apparently. Patient denies having any chest pain, difficulty breathing, nausea, vomiting, diarrhea. Of note patient does state to have some blackouts in the past. However this incident appears to be mechanical fall. States to get dizzy intermittently at this time. 09/10/2001 Patient appears to be doing well. States that she is concerned that she may be developing a pneumonia as she had cough 1 States the pain is tolerable on the current regimen. Her vision does not appear to be changed. There is some concern over her pain in her nose as she has had prior surgeries. Objective - Vital Signs Vital signs: Vital Signs Temp 98.2 F 09/09/16 20:00 Pulse 79 09/10/16 04:00 Resp 18 09/10/16 04:00 BP 111/59 09/10/16 04:00 Pulse Ox 95 09/10/16 04:00 Intake & Output 09/09/16 09/10/16 09/10/16 18:59 06:59 18:59 Intake Total 900 340 Balance 900 340 Weight 89.8 kg Intake: IV 900 Sodium Chloride 0.9% 1, 900 000 ml @ 75 mls/hr IV . [id number] STA Rx#:[id number] Oral 340 Other: Voiding Method Bedside Commode # Voids 1 # Bowel Movements 1 - Exam Physical exam Gen. appearance oriented 3 in no distress Neck is supple no JVD Extraocular movement is intact Nose there is a scab noted on the entrance of the right near Bridges tender to palpation there is some tenderness over the maxillary sinus Lungs good air entry clear to auscultation no rhonchi or wheezing Heart S1-S2 heard regular rate and rhythm no murmurs appreciated Abdomen is soft nontender no organomegaly bowel sounds are intact Neurologically cranial nerves II-12 grossly intact no focal motor or sensory deficits noted Right knee there is a brace over the right knee Skin no abnormalities appreciated - Labs CBC & Chem 7: 09/10/16 06:10 09/10/16 06:10 Labs: Abnormal Lab Results - Last 24 Hours (Table) 09/10/16 09/10/16 09/10/16 Range/Units 06:10 06:10 06:20 WBC 2.3 L (3.8-10.6) k/uL RBC 3.47 L (3.80-5.40) m/uL Hgb 10.8 L (11.4-16.0) gm/dL Plt Count 134 L (150-450) k/uL Neutrophils # 1.2 L (1.3-7.7) k/uL Lymphocytes # 0.8 L (1.0-4.8) k/uL Chloride 108 H (98-107) mmol/L POC Glucose (mg/dL) 100 H (75-99) mg/dL Calcium 8.3 L (8.4-10.2) mg/dL Total Protein 5.1 L (6.3-8.2) g/dL Albumin 2.8 L (3.5-5.0) g/dL 09/10/16 Range/Units 11:57 WBC (3.8-10.6) k/uL RBC (3.80-5.40) m/uL Hgb (11.4-16.0) gm/dL Plt Count (150-450) k/uL Neutrophils # (1.3-7.7) k/uL Lymphocytes # (1.0-4.8) k/uL Chloride (98-107) mmol/L POC Glucose (mg/dL) 166 H (75-99) mg/dL Calcium (8.4-10.2) mg/dL Total Protein (6.3-8.2) g/dL Albumin (3.5-5.0) g/dL Assessment and Plan Plan: #1 mechanical fall #2 history of syncopal episodes. #3 orbital fracture #4 patellar fracture #5 history of hypertension #6 COPD #7 (gastric bypass surgery #8 for nasal surgeries in the past Plan Await ENT recommendations. Patient is scheduled for an MRI of the brain. We' ll need to rule out any subtle injuries from the concussion Continue brace for the right patellar fracture We'll repeat an x-ray in the a.m. Blood pressures and other vitals are stable. This was discussed with the patient and the family at bedside.
[2016-09-10] MEDS: traMADol 50 MG TAB PO PRN (16:10)
[2016-09-10 16:39] LABS: Glucose,Whole Blood 97 mg/dL (75-99)
[2016-09-10] MEDS: ONDANSETRON ODT 4 MG TAB PO PRN (17:07)
[2016-09-10 20:48] LABS: Glucose,Whole Blood 258 mg/dL (75-99)
[2016-09-10] MEDS: DOCUSATE 100 MG CAP PO SCH (20:54)
[2016-09-10] MEDS: ATORVASTATIN 20 MG TAB PO SCH (20:54)
[2016-09-10] MEDS: QUEtiapine 100 MG TAB PO SCH (20:54)
[2016-09-11] MEDS: HYDROcodone/APAP 5-325MG 1 EACH TAB PO PRN ×3 (05:09→20:40)
[2016-09-11 06:38] LABS: Basophils % (A) 1 %; CH 30.8; CHCM 31.4; Eosinophils # (A) 0.1 k/uL (0-0.7); Eosinophils % (A) 3 %; HCT 37.6 % (34.0-46.0); HDW 2.29; HGB 11.8 gm/dL (11.4-16.0); Luc # (Auto) 0.04; Luc % (Auto) 2; Lymphocytes # (A) 0.7 k/uL (1.0-4.8); Lymphocytes % (A) 26 %; MCH 30.8 pg (25.0-35.0); MCHC 31.3 g/dL (31.0-37.0); MCV 98.4 fL (80.0-100.0); Mean Platelet Volume 8.1; Monocytes # (A) 0.2 k/uL (0-1.0); Monocytes % (A) 7 %; Neutrophils # (A) 1.6 k/uL (1.3-7.7); Neutrophils % (A) 62 %; RBC 3.82 m/uL (3.80-5.40); RDW 12.4 % (11.5-15.5); WBC 2.7 k/uL (3.8-10.6); WBC (Perox) 2.71
[2016-09-11 06:53] LABS: ALT 27 U/L (9-52); AST 23 U/L (14-36); Alkaline Phosphatase 73 U/L (38-126); Anion Gap 7 mmol/L; Blood Urea Nitrogen 14 mg/dL (7-17); Calcium 8.6 mg/dL (8.4-10.2); Carbon Dioxide 30 mmol/L (22-30); Chloride 105 mmol/L (98-107); Creatine Kinase 40 U/L (30-135); Glucose 90 mg/dL (74-99); Magnesium 1.9 mg/dL (1.6-2.3); Non-African American GFR(MDRD) >60 (>60 ml/min/1.73 sqM); Potassium 4.4 mmol/L (3.5-5.1); Sodium 142 mmol/L (137-145); Total Bilirubin 0.5 mg/dL (0.2-1.3); Total Protein 5.6 g/dL (6.3-8.2)
[2016-09-11 07:05] LABS: Glucose,Whole Blood 93 mg/dL (75-99)
[2016-09-11] MEDS: SYMBICORT 160-4.5 MCG INHALER INHALATION SCH ×2 (08:29→21:00)
[2016-09-11] MEDS: DOCUSATE 100 MG CAP PO SCH ×2 (08:50→20:41)
[2016-09-11] MEDS: FLUoxetine HCL 20 MG CAP PO SCH ×2 (08:50→20:41)
[2016-09-11] MEDS: SUCRALFATE 1 GM TAB PO SCH ×3 (08:50→21:50)
[2016-09-11] MEDS: PANTOPRAZOLE 40 MG TABLET PO SCH ×2 (08:50→20:41)
[2016-09-11] MEDS: ALPRAZolam 0.5 MG TAB PO SCH ×3 (08:56→21:50)
--- NOTE | 2016-09-11 09:50 | P.PN ---
Subjective 61-year-old female being seen this morning in a follow-up surgical visit This is a 61-year-old female who sustained a fall resulting in a concussion with facial fractures and the patella fracture. Patient reports that she continues to have nasal drainage left Nare ENT consult pending Currently denying chest pain dizziness lightheadedness or shortness of breath additionally patient is denying any abdominal pain when questioning Additionally the patient states that she is being scheduled today for an MRI of the brain which has not been done yet Objective - Vital Signs Vital signs: Vital Signs Temp 98.3 F 09/11/16 08:00 Pulse 75 09/11/16 08:00 Resp 16 09/11/16 08:00 BP 100/56 09/11/16 08:00 Pulse Ox 99 09/11/16 08:00 Intake & Output 09/10/16 09/11/16 09/11/16 18:59 06:59 18:59 Intake Total 340 340 240 Balance 340 340 240 Weight 81 kg Intake: Oral 340 340 240 Other: Voiding Method Toilet Toilet # Voids 1 - Exam Physical exam 61-year-old female resting in bed does not appear in any acute distress oriented 3 denies blurred vision denies a headache Lungs essentially clear adequate air movement Heart S1-S2 audible and regular Abdomen soft nontender reports no nausea vomiting Extremities no edema noted to the lower extremities - Labs CBC & Chem 7: 09/11/16 06:19 09/11/16 06:19 Labs: Abnormal Lab Results - Last 24 Hours (Table) 09/10/16 09/10/16 09/11/16 Range/Units 11:57 20:47 06:19 WBC 2.7 L (3.8-10.6) k/uL Lymphocytes # 0.7 L (1.0-4.8) k/uL POC Glucose (mg/dL) 166 H 258 H (75-99) mg/dL Total Protein (6.3-8.2) g/dL Albumin (3.5-5.0) g/dL 09/11/16 Range/Units 06:19 WBC (3.8-10.6) k/uL Lymphocytes # (1.0-4.8) k/uL POC Glucose (mg/dL) (75-99) mg/dL Total Protein 5.6 L (6.3-8.2) g/dL Albumin 3.2 L (3.5-5.0) g/dL Assessment and Plan Plan: Impression Present on admission near syncopal episode resulting in a right patella fracture , right orbit fracture Facial contusion secondary to a fall Mild traumatic brain injury with a CT of the head and C-spine showing no acute injury COPD stable Plan Stable from a surgical standpoint with no further surgical workup indicated MRI of the brain pending Continue recommendations by neurology service ENT pending We'll see patient on an as-needed basis The above dictated assessment and findings were discussed with Dr. Vásquez Impression and the plan of care have been dictated as directed. Abigail Carlton nurse practitioner acting as a scribe for Dr. Vásquez.
--- NOTE | 2016-09-11 10:46 | ECHOF ---
Referral Reason:Syncope MEASUREMENTS -------- HEIGHT: 175.3 cm WEIGHT: 89.4 kg BP: 117/68 RVIDd: 2.5 cm (< 3.3) IVSd: 1.1 cm (0.6 - 1.1) LVIDd: 4.2 cm (3.9 - 5.3) LVPWd: 1.1 cm (0.6 - 1.1) IVSs: 1.5 cm LVIDs: 2.5 cm LVPWs: 1.8 cm LA Diam: 3.1 cm (2.7 - 3.8) LAESV Index (A-L): 20.34 ml/m Ao Diam: 3.2 cm (2.0 - 3.7) AV Cusp: 2.4 cm (1.5 - 2.6) MV EXCURSION: 16.095 mm (> 18.000) MV EF SLOPE: 85 mm/s (70 - 150) EPSS: 0.9 cm MV E Brian: 0.72 m/s MV DecT: 262 ms MV A Brian: 0.71 m/s MV E/A Ratio: 1.02 RAP: 5.00 mmHg RVSP: 20.45 mmHg FINDINGS -------- Sinus rhythm. This was a technically good study. The left ventricular size is normal. There is borderline concentric left ventricular hypertrophy. Overall left ventricular systolic function is normal with, an EF between 60 - 65 %. The right ventricle is normal in size. Normal LA size by volume 22+/-6 ml/m2. The right atrium is normal in size. Aortic valve is trileaflet and is mildly thickened. Mild mitral annular calcification present. The tricuspid valve appears structurally normal. The pulmonic valve was not well visualized. The aortic root size is normal. Normal inferior vena cava with normal inspiratory collapse consistent with estimated right atrial pressure of 5 mmHg. There is no pericardial effusion. CONCLUSIONS -------- 1. Sinus rhythm. 2. The tricuspid valve appears structurally normal. 3. The pulmonic valve was not well visualized. 4. The aortic root size is normal. 5. Normal inferior vena cava with normal inspiratory collapse consistent with estimated right atrial pressure of 5 mmHg. 6. There is no pericardial effusion. 7. This was a technically good study. 8. The left ventricular size is normal. 9. There is borderline concentric left ventricular hypertrophy. 10. Overall left ventricular systolic function is normal with, an EF between 60 - 65 %. 11. The right ventricle is normal in size. 12. Normal LA size by volume 22+/-6 ml/m2. 13. Aortic valve is trileaflet and is mildly thickened. 14. Mild mitral annular calcification present. HOUSETRAILER SERVICER: Frances Goldberg RDCS
[2016-09-11 12:01] LABS: Glucose,Whole Blood 69 mg/dL (75-99)
[2016-09-11 12:01] LABS: Glucose,Whole Blood 94 mg/dL (75-99)
--- NOTE | 2016-09-11 14:25 | P.PN ---
Progress Note - Text The patient is down for EEG at this time. I discussed the plan with the patient 's son. She may possibly be transferred to inpatient rehab. She is to follow up with Dr. Redd in 7-10 days for re-x-ray and evaluation of the right knee. She may be discharged to rehab when stable medically.
--- NOTE | 2016-09-11 15:41 | XR ---
EXAMINATION TYPE: XR chest 1V portable DATE OF EXAM: 09/11/2016 3:24 PM COMPARISON: 09/07/2016 HISTORY: Shortness of breath TECHNIQUE: Single frontal view of the chest is obtained. FINDINGS: Small bilateral effusions. No overt failure or pneumothorax. Heart size stable. IMPRESSION: 1. Small bilateral pleural effusions
--- NOTE | 2016-09-11 15:44 | MR ---
EXAMINATION TYPE: MR brain wo con DATE OF EXAM: 09/11/2016 3:27 PM COMPARISON: CT brain from 2 days ago. HISTORY: Patient tripped over uneven cement, while at a gas station and hit head on concrete with los s of consciousness TECHNIQUE: Multiplanar, multisequence imaging of the brain and brainstem is performed without IV cont rast. Trauma protocol. FINDINGS: Diffusion weighted images demonstrate no evidence of a recent infarct or other diffusion abnormality. There is no extraaxial fluid collection or significant white matter signal abnormality. There is sing le 4 mm T2 hyperintense focus right basal ganglia on axial image 18. The ventricular system and cist ernal spaces are normal in size and appearance. The brain volume is age appropriate. T2 Star weighte d images show no suspicious intraparenchymal blood product, symmetric low intensity corresponds to ba sarah ganglia calcifications on CT. Midline structures demonstrate normal morphology. The craniocervical junction appears within normal limits. Normal vascular flow voids are present. The visualized sinuses are clear and the globes are i ntact. IMPRESSION: No suspicious intraparenchymal blood product to suggest diffuse axonal injury. Minimal no nspecific white matter changes presumed on basis of product of proximal vessel ischemic change in pat ient of this age.
[2016-09-11 16:58] LABS: Glucose,Whole Blood 99 mg/dL (75-99)
--- NOTE | 2016-09-11 17:12 | P.PN ---
Subjective This patient is a 61-year-old female who was seen on neurology consultation yesterday for mild traumatic brain injury. Patient had sustained a fall in which she tripped and fell forward and struck her face on a pole. She sustained bleeding and contusions to the face as well as a right orbital fracture. Following this she has been having recurrent dizziness and lightheadedness as well as near syncope. We have recommended an MRI of the brain to be done for further evaluation to rule out head contusion. Computed tomography scan of the brain failed to reveal any acute changes. Patient was sent for a computed tomography scan of the cervical spine yesterday as she was complaining of left arm pain. CT revealed no acute osseous abnormality. There was mild degenerative changes noted. Orthopedic surgery is also following the patient for a bright patellar fracture. This is a nondisplaced fracture. She is to continue to use a knee immobilizer at this time. Patient was complaining of mild discharge from the left nostril yesterday. Apparently this seems to wax and wane. We are waiting ENT consultation for further evaluation of this finding. She also is to be evaluated for right orbital fracture as well. Neurologically she remains intact. We will await further imaging studies which include the MRI of the brain which likely will be done tomorrow. We will also obtain routine EEG for further assessment of near syncope. We are waiting further evaluation from ENT regarding nasal discharge and orbital fracture. Patient states she still has not seen the ENT surgeon and we're waiting there evaluation and recommendations. Patient otherwise seems to be doing fairly well but still complains of mild headache. Patient was able to complete MRI of the brain today results of which were reviewed. MRI indicates no suspicious intraparenchymal blood or blood products to suggest diffuse axonal injury. Minimal nonspecific white matter changes were noted. We did discuss the MRI results today with the patient. She mentions that she has had no significant discharge from the left nostril today. We are waiting further evaluation from ENT and possible clearance for this patient to be discharged home. She has been able to walk with a walker today and did fairly well. She is being considered for possible discharge to home versus inpatient rehab. Final decision will be made tomorrow. Would continue current workup for this patient. We will continue close neurological follow-up for the patient during this admission. Objective - Vital Signs Vital signs: Vital Signs Temp 98.3 F 09/11/16 08:00 Pulse 70 09/11/16 11:44 Resp 16 09/11/16 11:47 BP 101/65 09/11/16 11:44 Pulse Ox 98 09/11/16 11:44 Intake & Output 09/10/16 09/11/16 09/11/16 18:59 06:59 18:59 Intake Total 340 340 360 Balance 340 340 360 Weight 81 kg Intake: Oral 340 340 360 Other: Voiding Method Toilet Toilet # Voids 1 0 # Bowel Movements 1 - Exam Physical examination: PHYSICAL EXAMINATION: Patient is resting comfortably in bed. VITAL SIGNS: Blood pressure [95/55]. Heart rate is [75]. Respiration is [17]. Temperature is [97.5]. HEENT: Head is atraumatic, neck is supple, there were no carotid bruits. CHEST: Lungs are clear to auscultation and percussion. CARDIAC: S1, S2 normal rate and rhythm. There is no murmur. ABDOMEN: Soft and nontender. Bowel sounds are present. EXTREMITIES: There is no pedal edema. Peripheral pulses are present. Neurological examination: Patient's neurological examination is unchanged from yesterday. She is not noted during examination at this time to have any discharge from the left nostril. - Labs CBC & Chem 7: 09/11/16 06:19 09/11/16 06:19 Labs: Abnormal Lab Results - Last 24 Hours (Table) 09/10/16 09/11/16 09/11/16 Range/Units 20:47 06:19 06:19 WBC 2.7 L (3.8-10.6) k/uL Lymphocytes # 0.7 L (1.0-4.8) k/uL POC Glucose (mg/dL) 258 H (75-99) mg/dL Total Protein 5.6 L (6.3-8.2) g/dL Albumin 3.2 L (3.5-5.0) g/dL 09/11/16 Range/Units 11:41 WBC (3.8-10.6) k/uL Lymphocytes # (1.0-4.8) k/uL POC Glucose (mg/dL) 69 L (75-99) mg/dL Total Protein (6.3-8.2) g/dL Albumin (3.5-5.0) g/dL Assessment and Plan (1) Closed head injury with concussion Status: Acute Code(s): S06.0X9A - CONCUSSION W LOSS OF CONSCIOUSNESS OF UNSP DURATION, INIT (2) Near syncope Status: Acute Code(s): R55 - SYNCOPE AND COLLAPSE (3) Patella fracture Status: Acute Code(s): S82.009A - UNSP FRACTURE OF UNSP PATELLA, INIT FOR CLOS FX (4) Right orbit fracture Status: Acute Code(s): S02.81XA - FRACTURE OF OTH SKULL AND FACIAL BONES, RIGHT SIDE, INIT (5) Facial contusion Status: Acute Code(s): S00.83XA - CONTUSION OF OTHER PART OF HEAD, INITIAL ENCOUNTER Plan: This patient is a 61-year-old female who sustained a fall at a gas station on of this past week. She struck her head on a post and apparently fell face forward onto the cement. She had tripped on some raised cement near the gas pump area. Her had witnessed the fall. She did not seem to have any loss of consciousness but was clearly somewhat confused following the closed head injury. She developed severe bleeding from the nose as well as some facial contusions. She was taken to the [employer] store where the demand generation manager called EMS immediately. Incident report was filed. EMS arrived and brought the patient to the emergency room on . She was seen in the ER by Dr. Zheng. Several x-rays were done and she was told that she suffered a head concussion and was able to be discharged from the ER. She went home and on Sunday morning continued to feel very lightheaded and dizzy. She had for near syncopal episodes. She was advised to return to the emergency room by her primary care physician Dr. Faulkner. Patient was subsequently admitted to the hospital yesterday for further evaluation. She was seen in the ER by Dr. Bailey. All of her test results were reviewed with her and she was advised admission to the hospital. She underwent x-rays which revealed evidence of a right patellar fracture. Computed tomography scan of the brain revealed no acute intracranial hemorrhage or mass effect. There was no evidence of any skull bone fracture. Patient was admitted for further evaluation of head trauma and closed head injury. She is been seen by orthopedic surgery. She did sustain a right orbital fracture for which she is to see the ENT specialist Dr. Walter. Her neurological examination reveals slight left upper extremity weakness. She is being evaluated by orthopedic surgery for possible fractures. She did complain of some clear fluid leak from the left nostril that only occurred yesterday morning. We are monitoring this and she has had no further episodes today. She did undergo computed tomography scan of the cervical spine yesterday which failed to reveal any acute fracture or dislocation. We have recommended the patient to undergo an MRI of the brain as well as a computed tomography scan of the cervical spine. We will continue to monitor for any changes in terms of her mental status. Her clinical history is consistent with head concussion and mild posttraumatic vertigo. We will await further recommendations from ENT regarding any further treatment plan. Patient still awaiting evaluation from ENT regarding nasal discharge and right orbital fracture. We will await ENT his final recommendations. The patient has evidence of posttraumatic vertigo as well as posttraumatic headache syndrome. Patient seems to be doing better today in terms of her headache symptoms. As noted we are still awaiting ENT surgical consultation. Patient underwent MRI of the brain today which was reviewed. MRI fails to reveal any evidence of acute changes. Patient is being considered for possible discharge home tomorrow versus discharge to rehab. She has been up and ambulating today with the use of her walker. Her overall prognosis at this time remains guarded. We will continue close neurological follow-up for this patient during this admission.
--- NOTE | 2016-09-11 17:43 | P.PN ---
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 Patient fell on her face and injured it. Patient was thereafter evaluated in the ER was noted to have a orbital fracture. However is nondisplaced hence was discharged home to follow- up with her primary care physician. Patient's primary care however evaluated the patient was noted to have some clear nasal discharge and hence was sent back in the hospital for ongoing care. Patient was noted to have a right patellar fracture as well. Patient was evaluated by orthopedics. since her incident 2 days ago patient has been having a diffuse headache and there is some reported change in vision. Patient states her vision is blurry bilaterally. Her that she is getting more concerned in regards to her vision. Patient states that she notices some blood and other clear material coming through herwhen she bends forward. Patient has a history of multiple nasal septal surgeries due to granulomas in the past apparently. Patient denies having any chest pain, difficulty breathing, nausea, vomiting, diarrhea. Of note patient does state to have some blackouts in the past. However this incident appears to be mechanical fall. States to get dizzy intermittently at this time. 09/10/2001 Patient appears to be doing well. States that she is concerned that she may be developing a pneumonia as she had cough 1 States the pain is tolerable on the current regimen. Her vision does not appear to be changed. There is some concern over her pain in her nose as she has had prior surgeries. 09/11/2016 Patient is slightly anxious that she may get a pneumonia. However I did discuss my exam findings with her today. Patient is seen post MRI. States that she is able to relate with her walker is doing slightly better. Objective - Vital Signs Vital signs: Vital Signs Temp 97.5 F L 09/11/16 16:00 Pulse 75 09/11/16 16:00 Resp 17 09/11/16 16:00 BP 96/55 09/11/16 16:00 Pulse Ox 100 09/11/16 16:00 Intake & Output 09/10/16 09/11/16 09/11/16 18:59 06:59 18:59 Intake Total 340 340 540 Balance 340 340 540 Weight 81 kg Intake: Oral 340 340 540 Other: Voiding Method Toilet Toilet # Voids 1 0 # Bowel Movements 1 - Exam Physical exam Gen. appearance oriented 3 in no distress Neck is supple no JVD Extraocular movement is intact Nose there is a scab noted on the entrance of the right near Bridges tender to palpation there is some tenderness over the maxillary sinus Lungs good air entry clear to auscultation no rhonchi or wheezing Heart S1-S2 heard regular rate and rhythm no murmurs appreciated Abdomen is soft nontender no organomegaly bowel sounds are intact Neurologically cranial nerves II-12 grossly intact no focal motor or sensory deficits noted Right knee there is a brace over the right knee Skin no abnormalities appreciated - Labs CBC & Chem 7: 09/11/16 06:19 09/11/16 06:19 Labs: Abnormal Lab Results - Last 24 Hours (Table) 09/10/16 09/11/16 09/11/16 Range/Units 20:47 06:19 06:19 WBC 2.7 L (3.8-10.6) k/uL Lymphocytes # 0.7 L (1.0-4.8) k/uL POC Glucose (mg/dL) 258 H (75-99) mg/dL Total Protein 5.6 L (6.3-8.2) g/dL Albumin 3.2 L (3.5-5.0) g/dL 09/11/16 Range/Units 11:41 WBC (3.8-10.6) k/uL Lymphocytes # (1.0-4.8) k/uL POC Glucose (mg/dL) 69 L (75-99) mg/dL Total Protein (6.3-8.2) g/dL Albumin (3.5-5.0) g/dL Assessment and Plan Plan: #1 mechanical fall #2 history of syncopal episodes. #3 orbital fracture #4 patellar fracture #5 history of hypertension #6 COPD #7 (gastric bypass surgery #8 for nasal surgeries in the past Plan Blood pressures are stable. MRI results noted. Patient's headaches are likely from the recent concussion. Patient will likely be discharged either to a skilled nursing or home with home care. Patient will need physical therapy. Activity restrictions are discussed.
[2016-09-11 20:24] LABS: Glucose,Whole Blood 88 mg/dL (75-99)
[2016-09-11] MEDS: ATORVASTATIN 20 MG TAB PO SCH (20:41)
[2016-09-11] MEDS: QUEtiapine 100 MG TAB PO SCH (20:41)
[2016-09-12 02:10] LABS: Glucose,Whole Blood 86 mg/dL (75-99)
--- NOTE | 2016-09-12 05:04 | EEG ---
DATE OF SERVICE: 09/11/2016 INDICATIONS FOR EXAMINATION: This patient is a 61-year-old female being evaluated for recurrent near syncopal episodes. Patient with recent orbital fracture and patellar fracture from fall. AGE: 61Y EEG FINDINGS: A routine 21-channel, awake digital EEG recording was accomplished utilizing the 10 to 20 international system with bipolar and referential montages. The background activity in the most alert resting state consists of a low to medium amplitude, fairly well-developed and well-sustained 7 Hz activity over the posterior head regions. This posterior rhythm attenuates to eye opening. There is a small amount of low amplitude 18 to 20 Hz beta activity seen maximally over the anterior head regions. Muscle and movement artifact was observed on a few occasions during the tracing. Hyperventilation was not performed. Photic stimulation at flash frequencies of 2 to 30 Hz produced a good symmetrical occipital driving response. No epileptiform discharges were seen. IMPRESSION: This EEG is within normal limits for the patient's age. The EEG failed to reveal any focal, lateralized or epileptiform abnormalities. Clinical correlation is recommended.
[2016-09-12 07:10] LABS: Glucose,Whole Blood 89 mg/dL (75-99)
[2016-09-12 07:24] LABS: Basophils % (A) 1 %; CH 30.5; CHCM 30.8; Eosinophils # (A) 0.1 k/uL (0-0.7); Eosinophils % (A) 4 %; HCT 37.3 % (34.0-46.0); HDW 2.25; HGB 11.8 gm/dL (11.4-16.0); Hypochromasia Slight; Luc # (Auto) 0.05; Luc % (Auto) 2; Lymphocytes # (A) 0.8 k/uL (1.0-4.8); Lymphocytes % (A) 33 %; MCH 31.5 pg (25.0-35.0); MCHC 31.7 g/dL (31.0-37.0); MCV 99.6 fL (80.0-100.0); Mean Platelet Volume 8.4; Monocytes # (A) 0.2 k/uL (0-1.0); Monocytes % (A) 7 %; Neutrophils # (A) 1.3 k/uL (1.3-7.7); Neutrophils % (A) 53 %; RBC 3.75 m/uL (3.80-5.40); RDW 12.4 % (11.5-15.5); WBC 2.4 k/uL (3.8-10.6); WBC (Perox) 2.42
[2016-09-12] MEDS: HYDROcodone/APAP 5-325MG 1 EACH TAB PO PRN ×2 (07:35→13:38)
[2016-09-12] MEDS: DOCUSATE 100 MG CAP PO SCH (07:36)
[2016-09-12] MEDS: FLUoxetine HCL 20 MG CAP PO SCH (07:37)
[2016-09-12] MEDS: PANTOPRAZOLE 40 MG TABLET PO SCH (07:37)
[2016-09-12] MEDS: SUCRALFATE 1 GM TAB PO SCH (07:37)
[2016-09-12 07:41] LABS: ALT 27 U/L (9-52); AST 26 U/L (14-36); Alkaline Phosphatase 71 U/L (38-126); Anion Gap 7 mmol/L; Blood Urea Nitrogen 20 mg/dL (7-17); Calcium 8.3 mg/dL (8.4-10.2); Carbon Dioxide 30 mmol/L (22-30); Chloride 104 mmol/L (98-107); Glucose 82 mg/dL (74-99); Non-African American GFR(MDRD) >60 (>60 ml/min/1.73 sqM); Potassium 4.5 mmol/L (3.5-5.1); Sodium 141 mmol/L (137-145); Total Bilirubin 0.4 mg/dL (0.2-1.3); Total Protein 5.4 g/dL (6.3-8.2)
[2016-09-12] MEDS: ALPRAZolam 0.5 MG TAB PO SCH (07:41)
[2016-09-12] MEDS: SYMBICORT 160-4.5 MCG INHALER INHALATION SCH (09:13)
[2016-09-12] MEDS: traMADol 50 MG TAB PO PRN (10:52)
[2016-09-12 12:04] LABS: Glucose,Whole Blood 105 mg/dL (75-99)
[2016-09-12 15:30] VITALS: BP 156/98; PULSE 87; RESP 18; TEMP 99.1
--- NOTE | 2016-09-12 16:15 | P.PN ---
Subjective This patient is a 61-year-old female who was seen on neurology consultation yesterday for mild traumatic brain injury. Patient had sustained a fall in which she tripped and fell forward and struck her face on a pole. She sustained bleeding and contusions to the face as well as a right orbital fracture. Following this she has been having recurrent dizziness and lightheadedness as well as near syncope. We have recommended an MRI of the brain to be done for further evaluation to rule out head contusion. Computed tomography scan of the brain failed to reveal any acute changes. Patient was sent for a computed tomography scan of the cervical spine yesterday as she was complaining of left arm pain. CT revealed no acute osseous abnormality. There was mild degenerative changes noted. Orthopedic surgery is also following the patient for a bright patellar fracture. This is a nondisplaced fracture. She is to continue to use a knee immobilizer at this time. Patient was complaining of mild discharge from the left nostril yesterday. Apparently this seems to wax and wane. We are waiting ENT consultation for further evaluation of this finding. She also is to be evaluated for right orbital fracture as well. Neurologically she remains intact. We will await further imaging studies which include the MRI of the brain which likely will be done tomorrow. We will also obtain routine EEG for further assessment of near syncope. We are waiting further evaluation from ENT regarding nasal discharge and orbital fracture. Patient states she still has not seen the ENT surgeon and we're waiting there evaluation and recommendations. Patient otherwise seems to be doing fairly well but still complains of mild headache. Patient was able to complete MRI of the brain today results of which were reviewed. MRI indicates no suspicious intraparenchymal blood or blood products to suggest diffuse axonal injury. Minimal nonspecific white matter changes were noted. We did discuss the MRI results today with the patient. There is no evidence of cerebral contusion based on this MRI report. She mentions that she has had no significant discharge from the left nostril today. We are waiting further evaluation from ENT and possible clearance for this patient to be discharged home. She has been able to walk with a walker today and did fairly well. She is being considered for possible discharge to home versus inpatient rehab. Patient was able to ambulate with her walker today. She is being considered for discharge to home with outpatient physical therapy. She should follow-up with ENT in the outpatient clinic. Would continue current workup for this patient. We will continue close neurological follow-up for the patient during this admission. Objective - Vital Signs Vital signs: Vital Signs Temp 99.1 F 09/12/16 15:29 Pulse 87 09/12/16 15:29 Resp 18 09/12/16 15:29 BP 156/98 09/12/16 15:29 Pulse Ox 94 L 09/12/16 15:29 Intake & Output 09/11/16 09/12/16 09/12/16 18:59 06:59 18:59 Intake Total 660 320 Balance 660 320 Weight 81 kg Intake: Oral 660 320 Other: Voiding Method Toilet Toilet Toilet # Voids 1 1 3 # Bowel Movements 1 - Exam Physical examination: PHYSICAL EXAMINATION: Patient is resting comfortably in bed. VITAL SIGNS: Blood pressure is [156/98]. Heart rate is [87]. Respiration is [18] . Temperature is [99.1]. HEENT: Head is atraumatic, neck is supple, there were no carotid bruits. CHEST: Lungs are clear to auscultation and percussion. CARDIAC: S1, S2 normal rate and rhythm. There is no murmur. ABDOMEN: Soft and nontender. Bowel sounds are present. EXTREMITIES: There is no pedal edema. Peripheral pulses are present. Neurological examination: Patient's neurological examination is unchanged from yesterday. Patient has no evidence of any discharge from the left nostril today on examination. - Labs CBC & Chem 7: 09/12/16 06:43 09/12/16 06:43 Labs: Abnormal Lab Results - Last 24 Hours (Table) 09/12/16 09/12/16 09/12/16 Range/Units 06:43 06:43 12:00 WBC 2.4 L (3.8-10.6) k/uL RBC 3.75 L (3.80-5.40) m/uL Plt Count 137 L (150-450) k/uL Lymphocytes # 0.8 L (1.0-4.8) k/uL BUN 20 H (7-17) mg/dL POC Glucose (mg/dL) 105 H (75-99) mg/dL Calcium 8.3 L (8.4-10.2) mg/dL Total Protein 5.4 L (6.3-8.2) g/dL Albumin 3.0 L (3.5-5.0) g/dL Assessment and Plan (1) Closed head injury with concussion Status: Acute Code(s): S06.0X9A - CONCUSSION W LOSS OF CONSCIOUSNESS OF UNSP DURATION, INIT (2) Near syncope Status: Acute Code(s): R55 - SYNCOPE AND COLLAPSE (3) Patella fracture Status: Acute Code(s): S82.009A - UNSP FRACTURE OF UNSP PATELLA, INIT FOR CLOS FX (4) Right orbit fracture Status: Acute Code(s): S02.81XA - FRACTURE OF OTH SKULL AND FACIAL BONES, RIGHT SIDE, INIT (5) Facial contusion Status: Acute Code(s): S00.83XA - CONTUSION OF OTHER PART OF HEAD, INITIAL ENCOUNTER Plan: This patient is a 61-year-old female who sustained a fall at a gas station on of this past week. She struck her head on a post and apparently fell face forward onto the cement. She had tripped on some raised cement near the gas pump area. Her had witnessed the fall. She did not seem to have any loss of consciousness but was clearly somewhat confused following the closed head injury. She developed severe bleeding from the nose as well as some facial contusions. She was taken to the [employer] store where the residential case manager called EMS immediately. Incident report was filed. EMS arrived and brought the patient to the emergency room on . She was seen in the ER by Dr. Zheng. Several x-rays were done and she was told that she suffered a head concussion and was able to be discharged from the ER. She went home and on Sunday morning continued to feel very lightheaded and dizzy. She had for near syncopal episodes. She was advised to return to the emergency room by her primary care physician Dr. Faulkner. Patient was subsequently admitted to the hospital yesterday for further evaluation. She was seen in the ER by Dr. Bailey. All of her test results were reviewed with her and she was advised admission to the hospital. She underwent x-rays which revealed evidence of a right patellar fracture. Computed tomography scan of the brain revealed no acute intracranial hemorrhage or mass effect. There was no evidence of any skull bone fracture. Patient was admitted for further evaluation of head trauma and closed head injury. She is been seen by orthopedic surgery. She did sustain a right orbital fracture for which she is to see the ENT specialist Dr. Walter. Her neurological examination reveals slight left upper extremity weakness. She is being evaluated by orthopedic surgery for possible fractures. She did complain of some clear fluid leak from the left nostril that only occurred yesterday morning. We are monitoring this and she has had no further episodes today. She did undergo computed tomography scan of the cervical spine yesterday which failed to reveal any acute fracture or dislocation. We have recommended the patient to undergo an MRI of the brain as well as a computed tomography scan of the cervical spine. Computed tomography scan of cervical spine failed to reveal any evidence of fracture or dislocation. She underwent MRI of the brain yesterday no evidence of any intraparenchymal hemorrhage or blood product. There was no evidence of cerebral contusion. Patient is awaiting ENT evaluation for further assessment of her orbital fracture and nasal septal surgeries and granulomas in the past. She will likely be discharged and will need to follow up with ENT in the outpatient clinic. We reviewed all of the MRI results today with the patient. Her routine EEG was negative with no evidence of any epileptiform discharges. She is being considered for possible discharge home later today with outpatient physical therapy. We will continue to follow the patient closely during this admission. Her overall prognosis at this time remains guarded.
--- NOTE | 2016-10-11 14:55 | P.DS ---
Providers Date of admission: 09/08/16 22:51 Attending physician: Jaiden Barraza Consults: 09/09/16 12:42 Consult Physician Urgent Consulting Provider: Aris Moses Consult Reason/Comments: Concussion Do you want consulting provider notified?: Yes Primary care physician: Marty [facility] Course: This 61-year-old gentleman with multiple medical problems initially sustained a fall after tripping over while pumping gas. Patient fell on her face and injured it. Patient was thereafter evaluated in the ER was noted to have a orbital fracture. However is nondisplaced hence was discharged home to follow- up with her primary care physician. Patient's primary care however evaluated the patient was noted to have some clear nasal discharge and hence was sent back in the hospital for ongoing care. Patient was noted to have a right patellar fracture as well. Patient was evaluated by orthopedics. since her incident 2 days ago patient has been having a diffuse headache and there is some reported change in vision. Patient states her vision is blurry bilaterally. Her that she is getting more concerned in regards to her vision. Patient states that she notices some blood and other clear material coming through herwhen she bends forward. Patient has a history of multiple nasal septal surgeries due to granulomas in the past apparently. Patient denies having any chest pain, difficulty breathing, nausea, vomiting, diarrhea. Of note patient does state to have some blackouts in the past. However this incident appears to be mechanical fall. States to get dizzy intermittently at this time. 09/10/2016 Patient appears to be doing well. States that she is concerned that she may be developing a pneumonia as she had cough 1 States the pain is tolerable on the current regimen. Her vision does not appear to be changed. There is some concern over her pain in her nose as she has had prior surgeries. 09/11/2016 Patient is slightly anxious that she may get a pneumonia. However I did discuss my exam findings with her today. Patient is seen post MRI. States that she is able to relate with her walker is doing slightly better. - Exam Physical exam Gen. appearance oriented 3 in no distress Neck is supple no JVD Extraocular movement is intact Nose there is a scab noted on the entrance of the right near Bridges tender to palpation there is some tenderness over the maxillary sinus Lungs good air entry clear to auscultation no rhonchi or wheezing Heart S1-S2 heard regular rate and rhythm no murmurs appreciated Abdomen is soft nontender no organomegaly bowel sounds are intact Neurologically cranial nerves II-12 grossly intact no focal motor or sensory deficits noted Right knee there is a brace over the right knee Skin no abnormalities appreciated Assessment and Plan Plan: #1 mechanical fall #2 history of syncopal episodes. #3 orbital fracture #4 patellar fracture #5 history of hypertension #6 COPD #7 (gastric bypass surgery #8 nasal surgeries in the past PT/OT discharged in a stable condition. Patient Condition at Discharge: Stable Plan - Discharge Summary New Discharge Prescriptions: HYDROcodone/APAP 5-325MG [B[place]orn 5-325] 1 tab PO Q6HR PRN #30 tab PRN Reason: Severe Pain Discharge Medication List ALPRAZolam [Xanax] 2 mg PO TID 12/14/13 [History] Atorvastatin [Lipitor] 20 mg PO HS 12/14/13 [History] Dextroamphetamine/Amphetamine [Adderall] 20 mg PO BID 12/14/13 [History] FLUoxetine HCL [PROzac] 40 mg PO BID 12/14/13 [History] Omeprazole [PriLOSEC] 40 mg PO BID 09/21/14 [History] Fluticasone/Salmeterol [Advair 500-50 Diskus] 1 puff INHALATION RT-BID 10/05/15 [History] Baclofen 10 mg PO Q8H PRN 01/04/16 [History] QUEtiapine [SEROquel] 100 mg PO HS 01/04/16 [History] Sucralfate [Carafate] 1 gm PO TID 06/18/16 [History] Ondansetron Odt [Zofran ODT] 4 mg PO Q8HR PRN #12 tab 09/07/16 [Rx] traMADol HCL [Ultram] 50 mg PO Q6H PRN 09/07/16 [History] HYDROcodone/APAP 5-325MG [B[place]orn 5-325] 1 tab PO Q6HR PRN #30 tab 09/12/16 [Rx] Follow up Appointment(s)/Referral(s): Marty Faulkner DO [Primary Care Provider] - 10/03/16 1:30 pm Paul Hooper MD [STAFF PHYSICIAN] - 09/14/16 11:15 am Reji Redd MD [STAFF PHYSICIAN] - 09/19/16 10:00 am [facility] Visiting Nurse, [NON-STAFF] - Patient Instructions/Handouts: Hydrocodone/Acetaminophen (By mouth), Syncope ( DC), Patellar Fracture (DC) Activity/Diet/Wound Care/Special Instructions: Toe-touch weight-bearing only right lower extremity with walker. Keep knee immobilizer in place at all times. Keep Immobilizer well padded behind the knee and calf. Discharge Disposition: HOME WITH HOME HEALTH SERVICES
== END 2016-09-12 16:05 | disposition home health service (06) ==
LOC: EC 19:21 → INTOOBSV 22:51 → 6SEL 22:51 → 5MS5E 09-11 19:44
PROVIDERS: ADMIT Hospitalist; ATTEND Hospitalist
DX: S06.9X0A Unspecified intracranial injury without loss of consciousness, initial encounter (principal); S82.001A Unspecified fracture of right patella, initial encounter for closed fracture; S02.81XA Fracture of other specified skull and facial bones, right side, initial encounter for closed fracture; S00.83XA Contusion of other part of head, initial encounter; R09.82 Postnasal drip; M79.602 Pain in left arm; F41.9 Anxiety disorder, unspecified; F32.9 Major depressive disorder, single episode, unspecified; F43.10 Post-traumatic stress disorder, unspecified; I10 Essential (primary) hypertension; J44.9 Chronic obstructive pulmonary disease, unspecified; J45.909 Unspecified asthma, uncomplicated; K21.9 Gastro-esophageal reflux disease without esophagitis; E78.5 Hyperlipidemia, unspecified; M79.7 Fibromyalgia; K46.9 Unspecified abdominal hernia without obstruction or gangrene; Z98.84 Bariatric surgery status; I25.2 Old myocardial infarction; F03.90 Unspecified dementia, unspecified severity, without behavioral disturbance, psychotic disturbance, mood disturbance, and anxiety; M19.90 Unspecified osteoarthritis, unspecified site; G47.33 Obstructive sleep apnea (adult) (pediatric); Z79.51 Long term (current) use of inhaled steroids; Z91.048 Other nonmedicinal substance allergy status; Z79.899 Other long term (current) drug therapy; W01.198A Fall on same level from slipping, tripping and stumbling with subsequent striking against other object, initial encounter; Z99.89 Dependence on other enabling machines and devices; Y92.524 Gas station as the place of occurrence of the external cause; Y93.01 Activity, walking, marching and hiking
CPT/HCPCS: 36415; 95819; 93005; 93306; 97161; 80053 ×4; 82550 ×2; 82553; 83735 ×2; 85025 ×4; 71010; 73030; 73080; 72125; 70450; 70470; 73700; 70551; 96365; 96375; 96361 ×2; 99285; G0378 ×6; Q9967; J0131

== ENCOUNTER → 2016-11-14 | Outpatient (CLI) | payer MEDICARE, OTHER ==
--- NOTE | 2016-11-14 16:09 | US ---
EXAMINATION TYPE: US venous doppler duplex LE RT DATE OF EXAM: 11/14/2016 3:57 PM COMPARISON: NONE CLINICAL HISTORY: 61-year-old female M25.651 PAIN IN RT KNEE, S82.091D fracture of right PATELLA. His tory of right patella fracture, September 2016. Leg swelling. No history of blood clots and not on any b lood thinners SIDE PERFORMED: Right TECHNIQUE: The lower extremity deep venous system is examined utilizing real time linear array sonog nya with graded compression, doppler sonography and color-flow sonography. FINDINGS: VESSELS IMAGED: External Iliac Vein (EIV) Common Femoral Vein Deep Femoral Vein Greater Saphenous Vein * Femoral Vein Popliteal Vein Small Saphenous Vein * Proximal Calf Veins (* superficial vessels) Right Leg: Appears negative for DVT IMPRESSION: No evidence for DVT within the right lower extremity imaged from the groin to the upper calf.
== END | disposition home or self-care (01) ==
LOC: RADUSWWP 15:32
PROVIDERS: ATTEND Orthopaedic Surgery
DX: M25.561 Pain in right knee (principal); S82.091D Other fracture of right patella, subsequent encounter for closed fracture with routine healing; X58.XXXD Exposure to other specified factors, subsequent encounter

== ENCOUNTER 2017-02-15 23:49 | Emergency (ER) | payer MEDICARE, OTHER ==
[2017-02-16] MEDS ORDERED: KETOROLAC 60 MG/2 ML VIAL IM STA (01:01)
--- NOTE | 2017-02-16 01:01 | ED ---
General Adult HPI - General Chief complaint: Extremity Injury, Lower Stated complaint: Foot/Knee Injury Time Seen by Provider: 02/16/17 00:40 Source: patient, RN notes reviewed Mode of arrival: wheelchair Limitations: no limitations - History of Present Illness Initial comments: 61-year-old female presents to the emergency department with a chief complaint of right knee pain. Patient states that her dog jumped onto her right knee and her right ankle and since she's had swelling and pain to the area. Patient states she's most of surgery to the right knee and the swelling was finally starting to decrease until today when the dog bit this. Patient states it hurts to walk on the leg. Patient states that there is no other injury from the incident. Patient states the pain is about 8 or 9 out of 10 constant was to movement or touch. Patient denies any recent fever, chills, shortness of breath, chest pain, back pain, abdominal pain, nausea vomiting, numbness or tingling, dysuria or hematuria, constipation or diarrhea, headaches or visual changes, or any other current symptoms. - Related Data Home Medications Medication Instructions Recorded Confirmed ALPRAZolam [Xanax] 2 mg PO TID 12/14/13 02/16/17 Atorvastatin [Lipitor] 20 mg PO HS 12/14/13 02/16/17 Dextroamphetamine/Amphetamine 20 mg PO BID 12/14/13 02/16/17 [Adderall] FLUoxetine HCL [PROzac] 40 mg PO BID 12/14/13 02/16/17 Omeprazole [PriLOSEC] 40 mg PO BID 09/21/14 02/16/17 Fluticasone/Salmeterol [Advair 1 puff INHALATION RT-BID 10/05/15 02/16/17 500-50 Diskus] Baclofen 10 mg PO Q8H PRN 01/04/16 02/16/17 QUEtiapine [SEROquel] 100 mg PO HS 01/04/16 02/16/17 Sucralfate [Carafate] 1 gm PO TID 06/18/16 02/16/17 traMADol HCL [Ultram] 50 mg PO Q6H PRN 09/07/16 02/16/17 Naproxen [Naprosyn] 1 tab PO TID 02/16/17 02/16/17 Previous Rx's Medication Instructions Recorded Ondansetron Odt [Zofran ODT] 4 mg PO Q8HR PRN #12 tab 09/07/16 HYDROcodone/APAP 5-325MG [[place] 1 tab PO Q6HR PRN #30 tab 09/12/16 5-325] Allergies Allergy/AdvReac Type Severity Reaction Status Date / Time adhesive tape AdvReac Skin Verified 02/16/17 00:06 Tearing Review of Systems ROS Statement: Those systems with pertinent positive or pertinent negative responses have been documented in the HPI. ROS Other: All systems not noted in ROS Statement are negative. Past Medical History Past Medical History: Asthma, Cancer, Heart Failure, COPD, Dementia, Fibromyalgia, GERD/Reflux, GI Bleed, Hyperlipidemia, Memory Impairment, Myocardial Infarction (CO), Osteoarthritis (OA), Pneumonia, Sleep Apnea/CPAP/ BIPAP Additional Past Medical History / Comment(s): esophageal stricture with balloon stretching. sepsis with pneumonia(recurrent) r/t to GERD causing aspiration pneumonia. skin ca. minor CO 2 years ago. kidney stone with lithotrpsy. 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 mulitple skin bx. 3 umbilical hernia repairs, septal repair, 2 lumpectomies right breast both benign Past Anesthesia/Blood Transfusion Reactions: Previous Problems w/ Anesthesia Additional Past Anesthesia/Blood Transfusion Reaction / Comment(s): bp dips low Past Psychological History: Anxiety, Depression, PTSD Smoking Status: Never smoker Past Alcohol Use History: None Reported Past Drug Use History: None Reported - Past Family History Mother Family Medical History: Cancer Additional Family Medical History / Comment(s): brother, sister and mother all had terminal cancers - breast, esophageal, and pancreatic General Exam - General Exam Comments Initial Comments: General: The patient is awake and alert, in no distress, and does not appear acutely ill. Neck: The neck is supple, there is no tenderness. Cardiovascular: There is a regular rate and rhythm. No murmur, rub or gallop is appreciated. Respiratory: Lungs are clear to auscultation, respirations are non-labored, breath sounds are equal. No wheezes, stridor, rales, or rhonchi. Musculoskeletal: Sensation intact with 2+ pulses. Right lower extremity. Frontal motion of right hip right knee and right ankle. There is appear to be associated swelling and tenderness along the distal aspect of the right knee. There is no cyanosis to the lateral aspect of the right ankle with some association of pain and some ecchymosis noted. Neurological: CN II-XII intact, There are no obvious motor or sensory deficits. Coordination appears grossly intact. Speech is normal. Skin: Skin is warm and dry and no rashes or lesions are noted. Psychiatric: Normal mood and affect. Limitations: no limitations Course Vital Signs 02/16/17 00:03 Temperature 98.1 F Pulse Rate 74 Respiratory 18 Rate Blood Pressure 108/65 O2 Sat by Pulse 98 Oximetry Procedures - Orthopedic Splinting/Casting Injury #1 Side: right Lower Extremity Injury Location: knee, ankle Lower Extremity Immobilizer: Michael wrap Medical Decision Making - Medical Decision Making 61-year-old female presents to the emergency department chief complaint of right knee and ankle pain after her dog jumped on them. This time x-rays are reviewed. This time x-rays are reviewed that do show a joint effusion to the right knee. This time we discussed continuing follow-up with or so and return parameters all questions. Patient stated he understood and she is in agreement plan. All questions have been answered. Patient will be discharged. Disposition Clinical Impression: Effusion, right knee, Contusion of right knee, Contusion of right ankle Disposition: HOME SELF-CARE Condition: Stable Instructions: Swollen Knee Joint (ED) Additional Instructions: Please use medication as discussed. Please follow up with family doctor if symptoms have not improved over the next two days. Please return to the emergency room if your symptoms increase or worsen or for any other concerns. Referrals: Marty Faulkner DO [Primary Care Provider] - 1-2 days Time of Disposition: 01:36
--- NOTE | 2017-02-16 01:30 | XR ---
EXAM: XR Right Ankle Complete, 3 or More Views CLINICAL HISTORY: Reason: Pain TECHNIQUE: Frontal, lateral and oblique views of the right ankle. COMPARISON: No relevant prior studies available. FINDINGS: Bones/joints: Osteopenia. No fracture or dislocation. Soft tissues: Mild soft tissue swelling. IMPRESSION: No acute findings.
--- NOTE | 2017-02-16 01:33 | XR ---
EXAM: XR Right Knee, 3 views CLINICAL HISTORY: Reason: Pain TECHNIQUE: Three views of the right knee. COMPARISON: No relevant prior studies available. FINDINGS: Bones/joints: Osteopenia. No fracture or dislocation. Suspect small amount of suprapatellar joint effusion. Soft tissues: Unremarkable. Vasculature: Peripheral vascular calcifications IMPRESSION: No fracture. Suspect small amount of suprapatellar joint effusion.
[2017-02-16 01:46] VITALS: BP 117/73; PULSE 68; RESP 16; TEMP 97.9
== END 2017-02-16 01:54 | disposition home or self-care (01) ==
LOC: EC 23:49
DX: S80.01XA Contusion of right knee, initial encounter (principal); S90.01XA Contusion of right ankle, initial encounter; M25.461 Effusion, right knee; E78.5 Hyperlipidemia, unspecified; K21.9 Gastro-esophageal reflux disease without esophagitis; J44.9 Chronic obstructive pulmonary disease, unspecified; M19.90 Unspecified osteoarthritis, unspecified site; F32.9 Major depressive disorder, single episode, unspecified; F41.9 Anxiety disorder, unspecified; Z79.1 Long term (current) use of non-steroidal anti-inflammatories (NSAID); Z79.51 Long term (current) use of inhaled steroids; Z79.899 Other long term (current) drug therapy; Z91.09 Other allergy status, other than to drugs and biological substances; Z87.19 Personal history of other diseases of the digestive system; Z98.890 Other specified postprocedural states; W54.0XXA Bitten by dog, initial encounter; Y93.89 Activity, other specified
CPT/HCPCS: 73562; 73610; 99283; 96372; J1885

== ENCOUNTER → 2018-02-21 | Outpatient (CLI) | payer MEDICARE, OTHER ==
--- NOTE | 2018-02-21 16:53 | US ---
EXAMINATION TYPE: US pelvis limited transvag DATE OF EXAM: 02/21/2018 COMPARISON: NONE CLINICAL HISTORY: N93.0 POSTCOITAL AND CONTACT BLEEDING. TECHNIQUE: Transvaginal (TV) and Transabdominal (TA) . Date of LMP: postmenopausal, non HRT EXAM MEASUREMENTS: Uterus: Surgically absent cm Endometrial Stripe: Surgically absent cm Right Ovary: Surgically absent cm Left Ovary: Surgically absent cm complete hysterectomy. 1. Uterus: Surgically absent 2. Endometrium: Surgically absent 3. Right Ovary: Surgically absent 4. Left Ovary: Surgically absent . 5. Bilateral Adnexa: Surgically absent 6. Posterior cul-de-sac: Surgically absent No abnormality noted. IMPRESSION: Hysterectomy. No solid or cystic pelvic mass identified. No free fluid.
== END | disposition home or self-care (01) ==
LOC: RADUSWWP 16:04
PROVIDERS: ATTEND Family Medicine
DX: N93.0 Postcoital and contact bleeding (principal); Z90.710 Acquired absence of both cervix and uterus
CPT/HCPCS: 76830; 76857

== ENCOUNTER → 2018-03-15 | Outpatient (CLI) | payer MEDICARE, OTHER ==
--- NOTE | 2018-03-17 11:46 | CT ---
EXAMINATION TYPE: CT urogram wo/w con DATE OF EXAM: 03/15/2018 COMPARISON: None INDICATION: Gross hematuria and frequent urination. DLP: 2362.9 mGycm, Automated exposure control for dose reduction was used. CONTRAST: 100ml mL of Isovue M300. Study performed TECHNIQUE: Axial images were obtained from above the diaphragm to the pubic rami in the axial plane a t 5 mm thick sections. Reconstructed images are reviewed on the computer in the coronal plane. Thre e-D reconstructed images of the kidneys ureter and bladder are performed by the technologist on the a separate [employer] computer. FINDINGS: Limited CT sections are obtained the lung bases. The lung bases are clear. There is a small hiatal hernia. Postsurgical changes within the hiatal hernia and stomach are evident. CT ABDOMEN: Liver: Normal Spleen: Normal Pancreas: There may be some mild atrophy present Adrenal glands: The adrenal glands are normal. Gallbladder: Normal Kidneys: No masses are evident. There is a moderate right hydronephrosis. No left hydronephrosis is e vident. There is a 1.0 cm cyst on the posterior lateral right renal cortex. There is symmetrical exc retion of contrast within the kidneys. Hydroureter is present on the right. This extends to the right ureterovesical junction. At the urinary bladder there is a 0.6 cm in calcification. Three-D reconstructed images are reviewed. The left ureter appears unremarkable. Renal contours appea r normal. No excretion is appreciated on the right likely due to the distal ureteral obstruction. Uri nary bladder has limited evaluation of the Three-D reconstructed images. Aorta: Normal Inferior vena cava: Normal. CT PELVIS: Periumbilical fat-containing hernia is present. Loops of bowel within the abdomen and pelvis are normal. Studies performed without oral contrast limiting loop of bowel evaluation. Appendix: Not identified Urinary bladder: Normal. Genitourinary structures: Uterus and ovaries are not identified. Osseous structures: No suspicious lytic or sclerotic lesions. IMPRESSIONS: 1. 0.6 cm obstructing distal right ureteral stone with moderate right hydronephrosis and moderate to severe right hydroureter. Calcification is at or just above the right ureterovesical junction.
== END | disposition home or self-care (01) ==
LOC: RADCTMAIN 14:04
PROVIDERS: ATTEND Urology
DX: N13.2 Hydronephrosis with renal and ureteral calculous obstruction (principal); N13.4 Hydroureter
CPT/HCPCS: 74178; 74400; Q9967

== ENCOUNTER → 2018-03-21 | Outpatient (CLI) | payer MEDICARE, OTHER ==
--- NOTE | 2018-03-21 11:14 | US ---
EXAMINATION TYPE: US abdomen limited DATE OF EXAM: 03/21/2018 COMPARISON: EXAMINATION TYPE: US abdomen limited DATE OF EXAM: 03/21/2018 COMPARISON: CT urogram 03/15/18 CLINICAL HISTORY: K43.9 VENTRAL HERNIA W/O OBSTRUCTION. Assess for hernia at location of: Umbilicus No evidence of hernia. Valsalva showed no evidence of hernia. Real-time scanning was performed by the biochemistry professor utilizing Valsalva and additional dynamic maneuve rs to assess for hernia. Ultrasound evidence failed to document hernia but there is recurrent hernia just superior to the umbi licus to the right of midline with 1.7 cm neck containing fat and tiny mesenteric vessels series 7 im age 42 confirmed coronal image 11 series 23 which is just to the right of midline vertical scar. Impression: Small incisional hernia based on recent CT right superior periumbilical level containing fat and tiny mesenteric vessels.
== END | disposition home or self-care (01) ==
LOC: RADUSWWP 10:24
PROVIDERS: ATTEND Surgery
DX: K43.2 Incisional hernia without obstruction or gangrene (principal)
CPT/HCPCS: 76705

== ENCOUNTER 2018-05-15 17:34 | Emergency (ER) | payer MEDICARE, OTHER ==
[2018-05-15] MEDS ORDERED: ASPIRIN 81 MG PO STA (17:47)
--- NOTE | 2018-05-15 18:01 | ED ---
General Adult HPI - General Stated complaint: poss bronchitis - History of Present Illness Initial comments: 63-year-old female past medical history of heart failure, previous MD, COPD, hypertension, recurrent pneumonia with sepsis including aspiration pneumonia from GERD, and dementia presenting today for cc of low grade fever, pain with deep inspiration and increased sputum. Patient states that she has chronic bronchitis from COPD and often gets pneumonia a couple of times a year, pt denies recent hospitalization or pneumonia in the past 90 days. Patient states that she's been feeling weak and tired the way she usually feels when she starts to develop pneumonia, she recorded a low-grade temperature yesterday and took 800 AND ibuprofen. Patient states that her phlegm has been increasing and yellow in color and she noticed chest pressure with deep inspiration, she states that these symptoms are identical when she experiences pneumonia. Patient was concerned that her pneumonia was recurring and presented to urgent care for evaluation. Upon evaluation a chest x-ray was obtained revealing infiltrates and an EKG revealing a sinus arrhythmia. Pt was sent via EMS for evaluation. Upon arrival pt vs are stable. Pt admits to fever, chills, cough, increased sputum production, denies current chest pain. Remainder of ROS (-) patient denies any recent back pain, abdominal pain, nausea or vomiting, numbness or tingling, dysuria or hematuria, constipation or diarrhea, headaches or visual changes, or any other complaints. - Related Data Home Medications Medication Instructions Recorded Confirmed ALPRAZolam [Xanax] 1 - 2 mg PO TID 12/14/13 05/15/18 Atorvastatin [Lipitor] 20 mg PO HS 12/14/13 05/15/18 Dextroamphetamine/Amphetamine 20 mg PO BID 12/14/13 05/15/18 [Adderall] FLUoxetine HCL [PROzac] 80 mg PO DAILY 12/14/13 05/15/18 Omeprazole [PriLOSEC] 40 mg PO BID 09/21/14 05/15/18 Baclofen 10 mg PO Q8H 01/04/16 05/15/18 QUEtiapine [SEROquel] 50 - 100 mg PO HS 01/04/16 05/15/18 Fluticasone/Vilanterol [Breo 1 puff INHALATION RT-DAILY 05/15/18 05/15/18 Ellipta 200-25 Mcg INH] Ibuprofen [Motrin] 800 mg PO Q8H 05/15/18 05/15/18 Ipratropium-Albuterol Nebulize 3 ml INHALATION RT-QID PRN 05/15/18 05/15/18 [Duoneb 0.5 mg-3 mg/3 ml Soln] QUEtiapine FUMARATE [SEROquel] 25 mg PO BID 05/15/18 05/15/18 Ranitidine HCl 150 mg PO BID 05/15/18 05/15/18 Previous Rx's Medication Instructions Recorded Levofloxacin [Levaquin] 750 mg PO DAILY 5 Days #5 tab 05/15/18 Allergies Allergy/AdvReac Type Severity Reaction Status Date / Time adhesive tape AdvReac Skin Verified 05/15/18 18:13 Tearing morphine AdvReac Confusion Verified 05/15/18 18:13 Review of Systems ROS Statement: Those systems with pertinent positive or pertinent negative responses have been documented in the HPI. ROS Other: All systems not noted in ROS Statement are negative. Constitutional: Reports: fever, chills. Denies: night sweats ENT: Denies: ear pain, throat pain Respiratory: Reports: cough. Denies: dyspnea, wheezes, hemoptysis, stridor Cardiovascular: Reports: chest pain (with deep inspiration). Denies: palpitations, dyspnea on exertion Endocrine: Denies: fatigue Gastrointestinal: Denies: abdominal pain, nausea, vomiting, diarrhea, constipation, hematemesis, melena, hematochezia Genitourinary: Denies: urgency, dysuria, frequency, hematuria Musculoskeletal: Denies: back pain Skin: Denies: rash, lesions Neurological: Reports: weakness. Denies: headache, numbness, paresthesias, confusion, abnormal gait, vertigo Past Medical History Past Medical History: Asthma, Cancer, Heart Failure, COPD, Dementia, Fibromyalgia, GERD/Reflux, GI Bleed, Hyperlipidemia, Memory Impairment, Myocardial Infarction ([place]), Osteoarthritis ([place]), Pneumonia, Sleep Apnea/CPAP/ BIPAP Additional Past Medical History / Comment(s): esophageal stricture with balloon stretching. sepsis with pneumonia(recurrent) r/t to GERD causing aspiration pneumonia. skin ca. minor [place] 2 years ago. kidney stone with lithotrpsy. arthritis,rls.pt stated "my normal wt is around [id number] so if i have an infection my white count is actually in a normal range", Hypotension, Anemia Last Myocardial Infarction Date:: 2 years ago approx History of Any Multi-Drug Resistant Organisms: None Reported Past Surgical History: Adenoidectomy, Appendectomy, Breast Surgery, Hernia Repair, Hysterectomy, Tonsillectomy Additional Past Surgical History / Comment(s): lithotrpsy, "stomach bypass secondary to gi bleed, tumor removed from left chao. mulitple skin bx. 3 umbilical hernia repairs, septal repair, 2 lumpectomies right breast both benign Past Anesthesia/Blood Transfusion Reactions: Previous Problems w/ Anesthesia Additional Past Anesthesia/Blood Transfusion Reaction / Comment(s): bp dips low Past Psychological History: Anxiety, Depression, PTSD Smoking Status: Never smoker Past Alcohol Use History: None Reported Past Drug Use History: None Reported - Past Family History Mother Family Medical History: Cancer Additional Family Medical History / Comment(s): brother, sister and mother all had terminal cancers - breast, esophageal, and pancreatic General Exam - General Exam Comments Initial Comments: General: The patient is awake and alert, in no distress, and does not appear acutely ill. Pt appears well, nontoxic Eye: Pupils are equal, round and reactive to light, extra-ocular movements are intact. No nystagmus. There is normal conjunctiva bilaterally. No signs of icterus. Ears, nose, mouth and throat: There are moist mucous membranes and no oral lesions. Neck: The neck is supple, there is no tenderness or JVD. Cardiovascular: There is a regular rate and rhythm. No murmur, rub or gallop is appreciated. Respiratory: No retractions, cyanosis or pallor. No signs of restaurant distress. Fine crackles heard at left lung base. Respirations are non-labored, breath sounds are equal. No wheezes, stridor, rales, or rhonchi. Gastrointestinal: Soft, non-distended, non-tender abdomen without masses or organomegaly noted. There is no rebound or guarding present. No CVA tenderness. Bowel sounds are unremarkable. Musculoskeletal: Normal ROM, no tenderness. Strength 5/5. Sensation intact. Pulses equal bilaterally 2+. Neurological: A&O x 3. CN II-XII intact, There are no obvious motor or sensory deficits. Coordination appears grossly intact. Speech is normal. Skin: Skin is warm and dry and no rashes or lesions are noted. Psychiatric: Cooperative, appropriate mood & affect, normal judgment. Course Vital Signs 05/15/18 05/15/18 05/15/18 17:51 18:00 18:25 Temperature 100.9 F H Pulse Rate 76 Respiratory 22 22 Rate Blood Pressure 138/93 138/93 O2 Sat by Pulse 98 99 Oximetry 05/15/18 05/15/18 05/15/18 19:00 20:00 20:05 Temperature Pulse Rate 75 73 Respiratory 27 H 16 Rate Blood Pressure 138/78 128/79 O2 Sat by Pulse 98 Oximetry 05/15/18 05/15/18 05/15/18 20:15 20:30 21:00 Temperature 99.4 F Pulse Rate 74 78 74 Respiratory 16 27 H 17 Rate Blood Pressure 111/78 120/62 O2 Sat by Pulse 96 98 Oximetry 05/15/18 22:00 Temperature Pulse Rate 71 Respiratory 24 Rate Blood Pressure 104/65 O2 Sat by Pulse 99 Oximetry - Reevaluation(s) Reevaluation #1: Pt stated that she had epigastric pain, she states this occurs due to her GERD. Pt denies chest pressure/left sided chest pain at this time. pt does have discomfort with deep inspiration. 05/15/18 EKG Findings - EKG Comments: EKG Findings:: Ventricular rate 72 bpm IA interval 134 ms, QRS jainism 82 ms , QT/QTc 404/442ms this is a sinus rhythm there are premature atrial complexes. Non spp T-wave abnormalities noted. EKG reviewed by myself and Dr. Bailey Medical Decision Making - Medical Decision Making Pt given 4 81mg ASA at urgent care prior to arrival. EKG no acute changes concerning for acute coronary syndrome. Nonspecific changes. Patient's labs as noted above, (-) cardiac workup, (-) troponins, repeat troponin (-), pt denies current chest pain. Dimer 0.64 within acceptable limits for pt age, no clinical signs of a DVT or history of blood closts/PE. She states that there is discomfort with deep inspiration that feels identical to when she comes down with pneumonia. CXR (-). PE findings concerning for pneumonitis/early clinical pneumonia. Pt denies recent hospitalization within the last 90 days or antibiotic use. Pt denies living in retirement care facility, pt has no history of MRSA- upon chart reviews all blood and sputum culture (-). pt has no active wound and is taking a PPI currently for indigestion. Pt has a high functional status. Pt states she has not had issues with her GERD since evaluation from specialist at [facility], denies episodes of aspiration "in years". Pt VS stable, O2 98% on RA. Pt given Duoneb, 500mg bolus. Pt given 2g IVPB of rocephin. Pt will be started on Levoquin 500mg daily x5 days for CAP in a patient with comorbities. Pt is to follow-up closely with primary care provider Dr. Faulkner. Pt is agreeable/happy with discharge. Pt was discharged in stable condition. Case was discussed at length with Dr. Bailey who reviewed all laboratory findings prior to pt discharge, Dr. Bailey agreed with clinical impression and plan. - Lab Data Result diagrams: 05/15/18 18:11 05/15/18 18:11 Lab Results 05/15/18 05/15/18 05/15/18 Range/Units 18:11 18:11 18:11 WBC 6.4 (3.8-10.6) k/uL RBC 3.76 L (3.80-5.40) m/uL Hgb 11.6 (11.4-16.0) gm/dL Hct 36.3 (34.0-46.0) % MCV 96.5 (80.0-100.0) fL MCH 31.0 (25.0-35.0) pg MCHC 32.1 (31.0-37.0) g/dL RDW 12.8 (11.5-15.5) % Plt Count 206 (150-450) k/uL Neutrophils % 78 % Lymphocytes % 13 % Monocytes % 6 % Eosinophils % 2 % Basophils % 0 % Neutrophils # 4.9 (1.3-7.7) k/uL Lymphocytes # 0.8 L (1.0-4.8) k/uL Monocytes # 0.4 (0-1.0) k/uL Eosinophils # 0.1 (0-0.7) k/uL Basophils # 0.0 (0-0.2) k/uL PT (9.0-12.0) sec INR (<1.2) APTT (22.0-30.0) sec D-Dimer (<0.60) mg/L FEU Sodium 140 (137-145) mmol/L Potassium 4.0 (3.5-5.1) mmol/L Chloride 109 H (98-107) mmol/L Carbon Dioxide 26 (22-30) mmol/L Anion Gap 5 mmol/L BUN 22 H (7-17) mg/dL Creatinine 0.65 (0.52-1.04) mg/dL Est GFR (CKD-EPI)AfAm >90 (>60 ml/min/1.73 sqM) Est GFR (CKD-EPI)NonAf >90 (>60 ml/min/1.73 sqM) Glucose 100 H (74-99) mg/dL Plasma Lactic Acid Abhijeet (0.7-2.0) mmol/L Calcium 8.6 (8.4-10.2) mg/dL Magnesium 1.9 (1.6-2.3) mg/dL Total Bilirubin 0.3 (0.2-1.3) mg/dL AST 24 (14-36) U/L ALT 27 (9-52) U/L Alkaline Phosphatase 91 (38-126) U/L Total Creatine Kinase 83 (30-135) U/L CK-MB (CK-2) 1.0 (0.0-2.4) ng/mL CK-MB (CK-2) Rel Index 1.2 Troponin I <0.012 (0.000-0.034) ng/mL Total Protein 6.2 L (6.3-8.2) g/dL Albumin 3.6 (3.5-5.0) g/dL Urine Color Urine Appearance (Clear) Urine pH (5.0-8.0) Ur Specific [place] (1.001-1.035) Urine Protein (Negative) Urine Glucose (UA) (Negative) Urine Ketones (Negative) Urine Blood (Negative) Urine Nitrite (Negative) Urine Bilirubin (Negative) Urine Urobilinogen (<2.0) mg/dL Ur Leukocyte Esterase (Negative) 05/15/18 05/15/18 05/15/18 Range/Units 18:11 18:11 18:47 WBC (3.8-10.6) k/uL RBC (3.80-5.40) m/uL Hgb (11.4-16.0) gm/dL Hct (34.0-46.0) % MCV (80.0-100.0) fL MCH (25.0-35.0) pg MCHC (31.0-37.0) g/dL RDW (11.5-15.5) % Plt Count (150-450) k/uL Neutrophils % % Lymphocytes % % Monocytes % % Eosinophils % % Basophils % % Neutrophils # (1.3-7.7) k/uL Lymphocytes # (1.0-4.8) k/uL Monocytes # (0-1.0) k/uL Eosinophils # (0-0.7) k/uL Basophils # (0-0.2) k/uL PT 9.4 (9.0-12.0) sec INR 0.9 (<1.2) APTT 21.2 L (22.0-30.0) sec D-Dimer 0.63 H (<0.60) mg/L FEU Sodium (137-145) mmol/L Potassium (3.5-5.1) mmol/L Chloride (98-107) mmol/L Carbon Dioxide (22-30) mmol/L Anion Gap mmol/L BUN (7-17) mg/dL Creatinine (0.52-1.04) mg/dL Est GFR (CKD-EPI)AfAm (>60 ml/min/1.73 sqM) Est GFR (CKD-EPI)NonAf (>60 ml/min/1.73 sqM) Glucose (74-99) mg/dL Plasma Lactic Acid Abhijeet 0.7 (0.7-2.0) mmol/L Calcium (8.4-10.2) mg/dL Magnesium (1.6-2.3) mg/dL Total Bilirubin (0.2-1.3) mg/dL AST (14-36) U/L ALT (9-52) U/L Alkaline Phosphatase (38-126) U/L Total Creatine Kinase (30-135) U/L CK-MB (CK-2) (0.0-2.4) ng/mL CK-MB (CK-2) Rel Index Troponin I (0.000-0.034) ng/mL Total Protein (6.3-8.2) g/dL Albumin (3.5-5.0) g/dL Urine Color Yellow Urine Appearance Clear (Clear) Urine pH 6.0 (5.0-8.0) Ur Specific [place] 1.018 (1.001-1.035) Urine Protein Negative (Negative) Urine Glucose (UA) Negative (Negative) Urine Ketones Negative (Negative) Urine Blood Negative (Negative) Urine Nitrite Negative (Negative) Urine Bilirubin Negative (Negative) Urine Urobilinogen <2.0 (<2.0) mg/dL Ur Leukocyte Esterase Negative (Negative) 05/15/18 Range/Units 21:25 WBC (3.8-10.6) k/uL RBC (3.80-5.40) m/uL Hgb (11.4-16.0) gm/dL Hct (34.0-46.0) % MCV (80.0-100.0) fL MCH (25.0-35.0) pg MCHC (31.0-37.0) g/dL RDW (11.5-15.5) % Plt Count (150-450) k/uL Neutrophils % % Lymphocytes % % Monocytes % % Eosinophils % % Basophils % % Neutrophils # (1.3-7.7) k/uL Lymphocytes # (1.0-4.8) k/uL Monocytes # (0-1.0) k/uL Eosinophils # (0-0.7) k/uL Basophils # (0-0.2) k/uL PT (9.0-12.0) sec INR (<1.2) APTT (22.0-30.0) sec D-Dimer (<0.60) mg/L FEU Sodium (137-145) mmol/L Potassium (3.5-5.1) mmol/L Chloride (98-107) mmol/L Carbon Dioxide (22-30) mmol/L Anion Gap mmol/L BUN (7-17) mg/dL Creatinine (0.52-1.04) mg/dL Est GFR (CKD-EPI)AfAm (>60 ml/min/1.73 sqM) Est GFR (CKD-EPI)NonAf (>60 ml/min/1.73 sqM) Glucose (74-99) mg/dL Plasma Lactic Acid Abhijeet (0.7-2.0) mmol/L Calcium (8.4-10.2) mg/dL Magnesium (1.6-2.3) mg/dL Total Bilirubin (0.2-1.3) mg/dL AST (14-36) U/L ALT (9-52) U/L Alkaline Phosphatase (38-126) U/L Total Creatine Kinase (30-135) U/L CK-MB (CK-2) (0.0-2.4) ng/mL CK-MB (CK-2) Rel Index Troponin I <0.012 (0.000-0.034) ng/mL Total Protein (6.3-8.2) g/dL Albumin (3.5-5.0) g/dL Urine Color Urine Appearance (Clear) Urine pH (5.0-8.0) Ur Specific [place] (1.001-1.035) Urine Protein (Negative) Urine Glucose (UA) (Negative) Urine Ketones (Negative) Urine Blood (Negative) Urine Nitrite (Negative) Urine Bilirubin (Negative) Urine Urobilinogen (<2.0) mg/dL Ur Leukocyte Esterase (Negative) Disposition Clinical Impression: Pneumonia Disposition: HOME SELF-CARE Condition: Good Instructions: Pneumonia (ED) Additional Instructions: Please use medication as discussed, including Tylenol for fever management. Please follow-up with family doctor in the next 24 hours. Please return to emergency room if the symptoms increase or worsen or for any other concerns, as discussed. Prescriptions: Levofloxacin [Levaquin] 750 mg PO DAILY 5 Days #5 tab Is patient prescribed a controlled substance at d/c from ED?: No Referrals: Marty Faulkner DO [Primary Care Provider] - 1-2 days Time of Disposition: 21:13
[2018-05-15 18:34] LABS: Basophils % (A) 0 %; Eosinophils # (A) 0.1 k/uL (0-0.7); Eosinophils % (A) 2 %; HCT 36.3 % (34.0-46.0); HGB 11.6 gm/dL (11.4-16.0); Lymphocytes # (A) 0.8 k/uL (1.0-4.8); Lymphocytes % (A) 13 %; MCHC 32.1 g/dL (31.0-37.0); MCV 96.5 fL (80.0-100.0); Mean Platelet Volume 7.9; Monocytes # (A) 0.4 k/uL (0-1.0); Monocytes % (A) 6 %; Neutrophils # (A) 4.9 k/uL (1.3-7.7); Neutrophils % (A) 78 %; Platelet Count 206 k/uL (150-450); RBC 3.76 m/uL (3.80-5.40); RDW 12.8 % (11.5-15.5); WBC 6.4 k/uL (3.8-10.6)
[2018-05-15 18:42] LABS: ALT 27 U/L (9-52); AST 24 U/L (14-36); Albumin 3.6 g/dL (3.5-5.0); Alkaline Phosphatase 91 U/L (38-126); Anion Gap 5 mmol/L; Blood Urea Nitrogen 22 mg/dL (7-17); Calcium 8.6 mg/dL (8.4-10.2); Carbon Dioxide 26 mmol/L (22-30); Chloride 109 mmol/L (98-107); Glucose 100 mg/dL (74-99); Magnesium 1.9 mg/dL (1.6-2.3); Sodium 140 mmol/L (137-145); Total Bilirubin 0.3 mg/dL (0.2-1.3); Total Protein 6.2 g/dL (6.3-8.2)
[2018-05-15 18:45] LABS: Creatine Kinase 83 U/L (30-135)
[2018-05-15 18:48] LABS: INR 0.9 (<1.2); Prothrombin Time 9.4 sec (9.0-12.0)
[2018-05-15 18:51] LABS: Appearance,Urine Clear (Clear); Bilirubin,Urine Negative (Negative); Blood,Urine Negative (Negative); Color,Urine Yellow; Glucose,Urine (UA) Negative (Negative); Ketones,Urine Negative (Negative); Leukocyte Esterase,Urine Negative (Negative); Nitrite,Urine Negative (Negative); Protein,Urine Negative (Negative); Specific Gravity,Urine 1.018 (1.001-1.035); Urobilinogen,Urine <2.0 mg/dL (<2.0)
[2018-05-15 18:53] LABS: D-Dimer 0.63 mg/L FEU (<0.60); Partial Thromboplastin Time 21.2 sec (22.0-30.0)
[2018-05-15 18:58] LABS: Troponin I <0.012 ng/mL (0.000-0.034)
[2018-05-15] MEDS ORDERED: ONDANSETRON ODT 4 MG TAB PO STA (19:05)
--- NOTE | 2018-05-15 19:19 | XR ---
EXAMINATION TYPE: XR chest 2V DATE OF EXAM: 05/15/2018 COMPARISON: 07/13/2017 HISTORY: Chest pain TECHNIQUE: Frontal and lateral views of the chest are obtained. FINDINGS: There is no heart failure nor confluent pneumonic infiltrate. Costophrenic angles are kellen r. There are chest leads. IMPRESSION: No active cardiopulmonary disease. Normal heart. No change.
[2018-05-15] MEDS ORDERED: ACETAMINOPHEN TAB 325 MG TAB PO STA (19:27)
[2018-05-15] MEDS ORDERED: IPRATROPIUM-ALBUTEROL 3 ML NEB INHALATION STA (19:51)
[2018-05-15] MEDS ORDERED: SODIUM CHLORIDE 0.9% 500 ML 500 ML IV ONE (19:51)
[2018-05-15] MEDS ORDERED: cefTRIAXone 2,000 MG in SODIUM CHLORIDE 0.9% 100 ML IVPB STA (19:53)
[2018-05-15 21:01] VITALS: TEMP 99.4
[2018-05-15 22:22] VITALS: BP 104/65; PULSE 71; RESP 24
== END 2018-05-15 22:34 | disposition home or self-care (01) ==
LOC: EC 17:34
DX: J18.9 Pneumonia, unspecified organism (principal); J44.0 Chronic obstructive pulmonary disease with (acute) lower respiratory infection; E78.5 Hyperlipidemia, unspecified; I11.0 Hypertensive heart disease with heart failure; I50.9 Heart failure, unspecified; I25.2 Old myocardial infarction; I95.9 Hypotension, unspecified; K21.9 Gastro-esophageal reflux disease without esophagitis; M19.90 Unspecified osteoarthritis, unspecified site; F32.9 Major depressive disorder, single episode, unspecified; F41.9 Anxiety disorder, unspecified; Z88.5 Allergy status to narcotic agent; Z91.048 Other nonmedicinal substance allergy status; Z79.1 Long term (current) use of non-steroidal anti-inflammatories (NSAID); Z79.51 Long term (current) use of inhaled steroids; Z79.899 Other long term (current) drug therapy
CPT/HCPCS: 36415; 94640; 93005; 85379; 80053; 82550; 82553; 83605; 83735; 84484; 85025; 85610; 85730; 81003; 87040; 71046; 99285; 96365; 96361; J0696

== ENCOUNTER 2018-05-22 17:45 | Observation (INO) | payer MEDICARE, OTHER ==
[2018-05-22] MEDS ORDERED: NITROGLYCERIN OINT 1 INCH/GM PACKET TOPICAL STA (18:01)
[2018-05-22] MEDS ORDERED: ASPIRIN 81 MG PO STA (18:01)
--- NOTE | 2018-05-22 18:04 | ED ---
General Adult HPI - General Chief complaint: Chest Pain Stated complaint: Chest pain Time Seen by Provider: 05/22/18 17:45 Source: patient, EMS, RN notes reviewed Mode of arrival: EMS Limitations: no limitations - History of Present Illness Initial comments: This is a 63-year-old female presents emergency Department stating that for 9 days now she thinks she's had pneumonia. Patient's been on an oral antibiotic claims that she does not absorb the antibiotics well. Patient states she went to a urgent care twice in the past week and her primary medical care doctor once and was told to come to the emergency department today. Patient states she 's been having chest pain in the center chest for 9 straight days. Patient states she's also short of breath and coughing up green sputum. Patient also states she's been lightheaded and at times states she's been a passout but has not yet passed out. Patient denies any abdominal pain patient denies nausea vomiting diarrhea. Patient denies any palpitations. Patient denies headache patient denies numbness weakness. - Related Data Home Medications Medication Instructions Recorded Confirmed ALPRAZolam [Xanax] 1 - 2 mg PO TID 12/14/13 05/22/18 Atorvastatin [Lipitor] 20 mg PO HS 12/14/13 05/22/18 Dextroamphetamine/Amphetamine 20 mg PO BID 12/14/13 05/22/18 [Adderall] FLUoxetine HCL [PROzac] 80 mg PO DAILY 12/14/13 05/22/18 Omeprazole [PriLOSEC] 40 mg PO BID 09/21/14 05/22/18 Baclofen 10 mg PO Q8H 01/04/16 05/22/18 QUEtiapine [SEROquel] 50 - 100 mg PO HS 01/04/16 05/22/18 Fluticasone/Vilanterol [Breo 1 puff INHALATION RT-DAILY 05/15/18 05/22/18 Ellipta 200-25 Mcg INH] Ibuprofen [Motrin] 800 mg PO Q8H 05/15/18 05/22/18 Ipratropium-Albuterol Nebulize 3 ml INHALATION RT-QID PRN 05/15/18 05/22/18 [Duoneb 0.5 mg-3 mg/3 ml Soln] QUEtiapine FUMARATE [SEROquel] 25 mg PO BID 05/15/18 05/22/18 Ranitidine HCl 150 mg PO BID 05/15/18 05/22/18 Previous Rx's Medication Instructions Recorded Levofloxacin [Levaquin] 750 mg PO DAILY 5 Days #5 tab 05/15/18 Allergies Allergy/AdvReac Type Severity Reaction Status Date / Time adhesive tape AdvReac Skin Verified 05/22/18 18:10 Tearing morphine AdvReac Confusion Verified 05/22/18 18:10 Review of Systems ROS Statement: Those systems with pertinent positive or pertinent negative responses have been documented in the HPI. ROS Other: All systems not noted in ROS Statement are negative. Past Medical History Past Medical History: Asthma, Cancer, Heart Failure, COPD, Dementia, Fibromyalgia, GERD/Reflux, GI Bleed, Hyperlipidemia, Memory Impairment, Myocardial Infarction ([place]), Osteoarthritis (OA), Pneumonia, Sleep Apnea/CPAP/ BIPAP Additional Past Medical History / Comment(s): esophageal stricture with balloon stretching. sepsis with pneumonia(recurrent) r/t to GERD causing aspiration pneumonia. skin ca. minor [place] 2 years ago. kidney stone with lithotrpsy. arthritis,rls.pt stated "my normal wt is around [id number] so if i have an infection my white count is actually in a normal range", Hypotension, Anemia Last Myocardial Infarction Date:: 2 years ago approx History of Any Multi-Drug Resistant Organisms: None Reported Past Surgical History: Adenoidectomy, Appendectomy, Breast Surgery, Hernia Repair, Hysterectomy, Tonsillectomy Additional Past Surgical History / Comment(s): lithotrpsy, "stomach bypass secondary to gi bleed, tumor removed from left chao. mulitple skin bx. 3 umbilical hernia repairs, septal repair, 2 lumpectomies right breast both benign Past Anesthesia/Blood Transfusion Reactions: Previous Problems w/ Anesthesia Additional Past Anesthesia/Blood Transfusion Reaction / Comment(s): bp dips low Past Psychological History: Anxiety, Depression, PTSD Smoking Status: Never smoker Past Alcohol Use History: None Reported Past Drug Use History: None Reported - Past Family History Mother Family Medical History: Cancer Additional Family Medical History / Comment(s): brother, sister and mother all had terminal cancers - breast, esophageal, and pancreatic General Exam - General Exam Comments Initial Comments: GENERAL: Patient is well-developed and well-nourished. Patient is nontoxic and well- hydrated and is in no acute distress. ENT: Neck is soft and supple. No significant lymphadenopathy is noted. Oropharynx is clear. Moist mucous membranes. Neck has full range of motion without eliciting any pain EYES: The sclera were anicteric and conjunctiva were pink and moist. Extraocular movements were intact and pupils were equal round and reactive to light. Eyelids were unremarkable. PULMONARY: Unlabored respirations. Good breath sounds bilaterally. No audible rales rhonchi or wheezing was noted. CARDIOVASCULAR: There is a regular rate and rhythm without any murmurs gallops or rubs. ABDOMEN: Soft and nontender with normal bowel sounds. No palpable organomegaly was noted. There is no palpable pulsatile mass. SKIN: Skin is clear with no lesions or rashes and otherwise unremarkable. NEUROLOGIC: Patient is alert and oriented x3. Cranial nerves II through XII are grossly intact. Motor and sensory are also intact. Normal speech, volume and content. Symmetrical smile. MUSCULOSKELETAL: Normal extremities with adequate strength and full range of motion. No lower extremity swelling or edema. No calf tenderness. LYMPHATICS: No significant lymphadenopathy is noted PSYCHIATRIC: Normal psychiatric evaluation. Limitations: no limitations Course Vital Signs 05/22/18 05/22/18 05/22/18 17:48 17:54 19:05 Temperature 98.5 F Pulse Rate 71 69 Respiratory 18 18 18 Rate Blood Pressure 126/88 113/79 O2 Sat by Pulse 97 98 Oximetry Medical Decision Making - Medical Decision Making EKG shows normal sinus rhythm at 73 bpm [place] interval 230 QRS is 74 QT interval 38 QTC is 427 per patient's EKG shows no ST segment elevation or depression or T wave abnormalities are noted. Chest x-ray shows no acute abnormality. Patient continues to have intermittent chest pain while in the emergency department. I spoke with Dr. Yang agreed to admit the patient admitted the patient I wrote admitting orders. - Lab Data Result diagrams: 05/22/18 18:15 05/22/18 18:15 Lab Results 05/22/18 05/22/18 05/22/18 Range/Units 18:15 18:15 18:15 WBC 4.4 (3.8-10.6) k/uL RBC 3.95 (3.80-5.40) m/uL Hgb 12.1 (11.4-16.0) gm/dL Hct 38.1 (34.0-46.0) % MCV 96.5 (80.0-100.0) fL MCH 30.8 (25.0-35.0) pg MCHC 31.9 (31.0-37.0) g/dL RDW 12.6 (11.5-15.5) % Plt Count 260 (150-450) k/uL Neutrophils % 65 % Lymphocytes % 25 % Monocytes % 6 % Eosinophils % 2 % Basophils % 1 % Neutrophils # 2.9 (1.3-7.7) k/uL Lymphocytes # 1.1 (1.0-4.8) k/uL Monocytes # 0.3 (0-1.0) k/uL Eosinophils # 0.1 (0-0.7) k/uL Basophils # 0.0 (0-0.2) k/uL PT (9.0-12.0) sec INR (<1.2) APTT (22.0-30.0) sec Sodium 138 (137-145) mmol/L Potassium 4.6 (3.5-5.1) mmol/L Chloride 104 (98-107) mmol/L Carbon Dioxide 30 (22-30) mmol/L Anion Gap 4 mmol/L BUN 25 H (7-17) mg/dL Creatinine 0.86 (0.52-1.04) mg/dL Est GFR (CKD-EPI)AfAm 83 (>60 ml/min/1.73 sqM) Est GFR (CKD-EPI)NonAf 72 (>60 ml/min/1.73 sqM) Glucose 118 H (74-99) mg/dL Calcium 9.1 (8.4-10.2) mg/dL Magnesium 2.3 (1.6-2.3) mg/dL Total Bilirubin 0.3 (0.2-1.3) mg/dL AST 21 (14-36) U/L ALT 26 (9-52) U/L Alkaline Phosphatase 79 (38-126) U/L Total Creatine Kinase 154 H (30-135) U/L CK-MB (CK-2) 2.0 (0.0-2.4) ng/mL CK-MB (CK-2) Rel Index 1.3 Troponin I <0.012 (0.000-0.034) ng/mL Total Protein 6.5 (6.3-8.2) g/dL Albumin 3.8 (3.5-5.0) g/dL 05/22/18 Range/Units 18:15 WBC (3.8-10.6) k/uL RBC (3.80-5.40) m/uL Hgb (11.4-16.0) gm/dL Hct (34.0-46.0) % MCV (80.0-100.0) fL MCH (25.0-35.0) pg MCHC (31.0-37.0) g/dL RDW (11.5-15.5) % Plt Count (150-450) k/uL Neutrophils % % Lymphocytes % % Monocytes % % Eosinophils % % Basophils % % Neutrophils # (1.3-7.7) k/uL Lymphocytes # (1.0-4.8) k/uL Monocytes # (0-1.0) k/uL Eosinophils # (0-0.7) k/uL Basophils # (0-0.2) k/uL PT 9.6 (9.0-12.0) sec INR 1.0 (<1.2) APTT 21.9 L (22.0-30.0) sec Sodium (137-145) mmol/L Potassium (3.5-5.1) mmol/L Chloride (98-107) mmol/L Carbon Dioxide (22-30) mmol/L Anion Gap mmol/L BUN (7-17) mg/dL Creatinine (0.52-1.04) mg/dL Est GFR (CKD-EPI)AfAm (>60 ml/min/1.73 sqM) Est GFR (CKD-EPI)NonAf (>60 ml/min/1.73 sqM) Glucose (74-99) mg/dL Calcium (8.4-10.2) mg/dL Magnesium (1.6-2.3) mg/dL Total Bilirubin (0.2-1.3) mg/dL AST (14-36) U/L ALT (9-52) U/L Alkaline Phosphatase (38-126) U/L Total Creatine Kinase (30-135) U/L CK-MB (CK-2) (0.0-2.4) ng/mL CK-MB (CK-2) Rel Index Troponin I (0.000-0.034) ng/mL Total Protein (6.3-8.2) g/dL Albumin (3.5-5.0) g/dL Disposition Clinical Impression: Chest pain Disposition: ADMITTED IP TO THIS HOSP Referrals: None,Stated [REFERRING] - 1-2 days Time of Disposition: 20:47
[2018-05-22 18:59] LABS: Albumin 3.8 g/dL (3.5-5.0); Calcium 9.1 mg/dL (8.4-10.2); Magnesium 2.3 mg/dL (1.6-2.3); Potassium 4.6 mmol/L (3.5-5.1); Total Bilirubin 0.3 mg/dL (0.2-1.3); Total Protein 6.5 g/dL (6.3-8.2)
[2018-05-22 19:00] LABS: Basophils % (A) 1 %; Eosinophils # (A) 0.1 k/uL (0-0.7); Eosinophils % (A) 2 %; HCT 38.1 % (34.0-46.0); HGB 12.1 gm/dL (11.4-16.0); Lymphocytes # (A) 1.1 k/uL (1.0-4.8); Lymphocytes % (A) 25 %; MCH 30.8 pg (25.0-35.0); MCHC 31.9 g/dL (31.0-37.0); MCV 96.5 fL (80.0-100.0); Mean Platelet Volume 7.8; Monocytes # (A) 0.3 k/uL (0-1.0); Monocytes % (A) 6 %; Neutrophils # (A) 2.9 k/uL (1.3-7.7); Neutrophils % (A) 65 %; Platelet Count 260 k/uL (150-450); RBC 3.95 m/uL (3.80-5.40); RDW 12.6 % (11.5-15.5); WBC 4.4 k/uL (3.8-10.6)
[2018-05-22 19:13] LABS: Partial Thromboplastin Time 21.9 sec (22.0-30.0); Prothrombin Time 9.6 sec (9.0-12.0)
[2018-05-22 19:16] LABS: Creatine Kinase 154 U/L (30-135)
[2018-05-22 19:28] LABS: Troponin I <0.012 ng/mL (0.000-0.034)
--- NOTE | 2018-05-22 20:38 | XR ---
EXAMINATION TYPE: XR chest 2V DATE OF EXAM: 05/22/2018 COMPARISON: 05/25/2018 HISTORY: Shortness of breath TECHNIQUE: Frontal and lateral views of the chest are obtained. FINDINGS: There is no focal air space opacity, pleural effusion, or pneumothorax seen. The cardiac silhouette size is within normal limits. The osseous structures are intact. There is linear left ba silar atelectasis and right hemidiaphragm eventration. Surgical sutures are noted at the gastroesopha geal junction. There is pulmonary hyperinflation and biapical lucency. IMPRESSION: Left basilar subsegmental atelectasis and radiographic sequela of COPD, otherwise no acu te cardiopulmonary process.
[2018-05-22] MEDS ORDERED: NITROGLYCERIN SL TABS 0.4 MG TAB SUBLINGUAL PRN (20:47)
[2018-05-22 22:45] VITALS: BMI 27.1
[2018-05-22] MEDS ORDERED: IBUPROFEN 800 MG TAB PO PRN (22:50)
[2018-05-22] MEDS ORDERED: IPRATROPIUM-ALBUTEROL 3 ML NEB INHALATION PRN (22:50)
[2018-05-23] MEDS: QUEtiapine 100 MG TAB PO SCH ×2 (00:21→20:38)
[2018-05-23] MEDS: ALPRAZolam 1 MG TAB PO SCH ×4 (00:21→20:38)
[2018-05-23] MEDS: FLUoxetine HCL 20 MG CAP PO SCH ×3 (00:21→20:38)
[2018-05-23] MEDS: QUEtiapine 25 MG TAB PO SCH ×4 (00:21→20:39)
[2018-05-23] MEDS: NITROGLYCERIN OINT 1 INCH/GM PACKET TOPICAL SCH ×2 (00:34→05:20)
[2018-05-23 02:38] LABS: Creatine Kinase 139 U/L (30-135)
[2018-05-23 02:50] LABS: Creatine Kinase MB 1.7 ng/mL (0.0-2.4); Troponin I <0.012 ng/mL (0.000-0.034)
[2018-05-23] MEDS ORDERED: MAG HYDROX/AL HYDROX/SIMETH 30 ML CUP PO PRN (07:41)
[2018-05-23 07:57] LABS: Cholesterol 157 mg/dL (<200); HDL Cholesterol 65 mg/dL (40-60); LDL Cholesterol,Calculated 82 mg/dL (0-99); Triglycerides 52 mg/dL (<150)
[2018-05-23 08:08] LABS: Creatine Kinase 98 U/L (30-135)
[2018-05-23] MEDS: ASPIRIN 325 MG TAB PO SCH (08:16)
[2018-05-23 08:21] LABS: Creatine Kinase MB 1.3 ng/mL (0.0-2.4); Troponin I <0.012 ng/mL (0.000-0.034)
--- NOTE | 2018-05-23 10:45 | P.CRDCN ---
History of Present Illness History of present illness: This is a pleasant 63-year-old female past medical history significant for dyslipidemia, gastroesophageal reflux disease, COPD, frequent pneumonia and esophageal stricture. We've been asked to see her in consultation for symptoms of chest pain. She states approximately one week ago her granddaughter came down with pneumonia and was unable to tolerate her antibiotics so is frequently coughing and she was exposed to her daily. She states couple of days ago she started feeling as though she was getting pneumonia and was having frequent coughing and her breathing seems to be increasingly labored. She went to the urgent care where she was given antibiotics. She states or antibiotics don't typically work for her because she has poor absorption of her stomach she feels as though the antibiotics she is taking were ineffective. Yesterday she started coughing more frequently and was burning up clear sputum which quickly changed a couple hours later to yellow sputum and then a couple hours after that became a thick green mucus like sputum. She describes a pressure sensation in the midsternal region that has been persistent for the previous 9 days with no specific aggravating or alleviating factors. While she has been coughing she becomes mildly lightheaded and dizzy. She denies palpitations, nausea, vomiting or diaphoresis. EKG reveals sinus mechanism with no acute ST or T-wave abnormalities. Chest xray with left basilar atelectasis with COPD, no acute process. Laboratory data reviewed, WBC 4.4, hgb 12.1, plt 260, sodium 138, potassium 4.6 , creatinine 0.86, magnesium 2.3, cardiac enzymes negative 3, and he proBNP 158 , LDL 82 and HDL 65. Current cardiac medications include atorvastatin 20 mg daily. At the time of my exam: CONSTITUTIONAL: Denies fever. Denies chills. EYES: Denies blurred vision. Denies vision changes. Denies eye pain. EARS, NOSE, MOUTH & THROAT: Denies headache. Complains of burning and bile in her throat. Denies ear pain. CARDIOVASCULAR: Denies chest pain. Denies shortness of breath. Denies orthopnea. Denies PND. Denies palpitations. RESPIRATORY: Denies cough. GASTROINTESTINAL: Denies abdominal pain. Denies diarrhea. Denies constipation. Denies nausea. Denies vomiting. MUSCULOSKELETAL: Denies myalgias. INTEGUMENTARY: Denies pruitis. Denies rash. NEUROLOGIC: Denies numbness. Denies tingling. Denies weakness. PSYCHIATRIC: Denies anxiety. Denies depression. ENDOCRINE: Denies fatigue. Denies weight change. Denies polydipsia. Denies polyurina. GENITOURINARY: Denies burning, hematuria or urgency with micturation. HEMATOLOGIC: Denies history of anemia. Denies bleeding. Blood pressure 100/62 heart rate 64 afebrile maintaining oxygen saturation on room air GENERAL: This is a 63-year-old female in no apparent distress at the time of my examination. HEENT: Head is atraumatic, normocephalic. Pupils are equal, round. Sclerae anicteric. Conjunctivae are clear. Mucous membranes of the mouth are moist. Neck is supple. There is no jugular venous distention. No carotid bruit is heard. LUNGS: Clear to auscultation no wheezes, rales or rhonchi. No chest wall tenderness is noted on palpation or with deep breathing. HEART: Regular rate and rhythm without murmurs, rubs or gallops. S1 and S2 heard. ABDOMEN: Soft, nontender. Bowel sounds are heard. No organomegaly noted. EXTREMITIES: No evidence of peripheral edema and no calf tenderness noted. VASCULAR: Radial and dorsalis pedis pulses palpated, no evidence of clubbing. NEUROLOGIC: Patient is awake, alert and oriented x3. ASSESSMENT Chest pain, atypical. An acute coronary event has been ruled out. COPD Dyslipidemia Gastroesophageal reflux disease PLAN An acute coronary event has been ruled out with no EKG evidence of ischemia and negative cardiac enzymes. Symptoms are very atypical for cardiac etiology. Obtain 2D echocardiogram and doppler study to assess cardiac structure and function. Recommend increasing her physical activity. Ongoing medical management of her cough, possible resolving pneumonia and GERD. Follow up with Dr. Martinez in the office in 2-3 weeks for possible outpatient stress testing. Thank you kindly for this consultation. Nurse Practitioner note has been reviewed, I agree with a documented findings and plan of care. Patient was seen and examined. Past Medical History Past Medical History: Asthma, Cancer, Heart Failure, COPD, Dementia, Fibromyalgia, GERD/Reflux, GI Bleed, Hyperlipidemia, Memory Impairment, Myocardial Infarction (MA), Osteoarthritis (OA), Pneumonia, Sleep Apnea/CPAP/ BIPAP Additional Past Medical History / Comment(s): esophageal stricture with balloon stretching. sepsis with pneumonia(recurrent) r/t to GERD causing aspiration pneumonia. skin ca. minor MA 2 years ago. kidney stone with lithotrpsy. arthritis,rls.pt stated "my normal wt is around [id number] so if i have an infection my white count is actually in a normal range", Hypotension, Anemia, skin CA Last Myocardial Infarction Date:: 2 years ago approx History of Any Multi-Drug Resistant Organisms: None Reported Past Surgical History: Adenoidectomy, Appendectomy, Breast Surgery, Hernia Repair, Hysterectomy, Tonsillectomy Additional Past Surgical History / Comment(s): lithotrpsy, "stomach bypass secondary to gi bleed, tumor removed from left chao. mulitple skin bx. 3 umbilical hernia repairs, septal repair, 2 lumpectomies right breast both benign Past Anesthesia/Blood Transfusion Reactions: Previous Problems w/ Anesthesia Additional Past Anesthesia/Blood Transfusion Reaction / Comment(s): bp dips low Smoking Status: Never smoker - Past Family History Mother Family Medical History: Cancer Additional Family Medical History / Comment(s): brother, sister and mother all had terminal cancers - breast, esophageal, and pancreatic Medications and Allergies Home Medications Medication Instructions Recorded Confirmed Type ALPRAZolam [Xanax] 2 mg PO TID 12/14/13 05/22/18 History Atorvastatin [Lipitor] 20 mg PO HS 12/14/13 05/22/18 History Dextroamphetamine/Amphetamine 20 mg PO BID 12/14/13 05/22/18 History [Adderall] FLUoxetine HCL [PROzac] 80 mg PO BID 12/14/13 05/22/18 History Omeprazole [PriLOSEC] 40 mg PO BID 09/21/14 05/22/18 History Baclofen 10 mg PO Q8H 01/04/16 05/22/18 History QUEtiapine [SEROquel] 100 mg PO HS 01/04/16 05/22/18 History Fluticasone/Vilanterol [Breo 1 puff INHALATION RT-DAILY 05/15/18 05/22/18 History Ellipta 200-25 Mcg INH] Ibuprofen [Motrin] 800 mg PO Q8H PRN 05/15/18 05/22/18 History Ipratropium-Albuterol Nebulize 3 ml INHALATION RT-QID PRN 05/15/18 05/22/18 History [Duoneb 0.5 mg-3 mg/3 ml Soln] QUEtiapine FUMARATE [SEROquel] 25 mg PO TID 05/15/18 05/22/18 History Ranitidine HCl 150 mg PO BID 05/15/18 05/22/18 History Allergies Allergy/AdvReac Type Severity Reaction Status Date / Time adhesive tape AdvReac Skin Verified 05/22/18 22:31 Tearing morphine AdvReac Confusion Verified 05/22/18 22:31 Physical Exam Vitals: Vital Signs Temp Pulse Pulse Resp BP BP Pulse Ox 05/23/18 04:00 98.0 F 74 16 95/62 94 L 05/23/18 00:00 16 05/22/18 22:40 97.7 F 63 16 113/62 96 05/22/18 22:01 97.9 F 68 16 116/81 94 L 05/22/18 19:05 69 18 113/79 98 05/22/18 17:54 18 05/22/18 17:48 98.5 F 71 18 126/88 97 Intake and Output 05/22/18 05/23/18 05/23/18 22:59 06:59 14:59 Other: Voiding Method Toilet # Voids 1 2 Weight 83.4 kg 84.2 kg Results 05/22/18 18:15 05/22/18 18:15 Cardiac Enzymes 05/22/18 05/22/18 05/23/18 Range/Units 18:15 18:15 01:10 AST 21 (14-36) U/L CK-MB (CK-2) 2.0 1.7 (0.0-2.4) ng/mL Troponin I <0.012 <0.012 (0.000-0.034) ng/mL Coagulation 05/22/18 Range/Units 18:15 PT 9.6 (9.0-12.0) sec APTT 21.9 L (22.0-30.0) sec CBC 05/22/18 Range/Units 18:15 WBC 4.4 (3.8-10.6) k/uL RBC 3.95 (3.80-5.40) m/uL Hgb 12.1 (11.4-16.0) gm/dL Hct 38.1 (34.0-46.0) % Plt Count 260 (150-450) k/uL Comprehensive Metabolic Panel 05/22/18 Range/Units 18:15 Sodium 138 (137-145) mmol/L Potassium 4.6 (3.5-5.1) mmol/L Chloride 104 (98-107) mmol/L Carbon Dioxide 30 (22-30) mmol/L BUN 25 H (7-17) mg/dL Creatinine 0.86 (0.52-1.04) mg/dL Glucose 118 H (74-99) mg/dL Calcium 9.1 (8.4-10.2) mg/dL AST 21 (14-36) U/L ALT 26 (9-52) U/L Alkaline Phosphatase 79 (38-126) U/L Total Protein 6.5 (6.3-8.2) g/dL Albumin 3.8 (3.5-5.0) g/dL Current Medications Generic Name Dose Route Start Last Admin Trade Name Freq PRN Reason Stop Dose Admin Albuterol/Ipratropium 3 ml 05/22/18 22:50 Duoneb 0.5 Mg-3 Mg/3 Ml Soln INHALATION RT-QID PRN Shortness Of Breath Alprazolam 2 mg 05/22/18 23:00 05/23/18 00:21 Xanax PO 2 mg TID KAREEM Administration Aspirin 325 mg 05/23/18 09:00 Aspirin PO DAILY [facility] Fluoxetine HCl 80 mg 05/22/18 23:00 05/23/18 00:21 Prozac PO 80 mg BID KAREEM Administration Ibuprofen 800 mg 05/22/18 22:50 Motrin PO Q8H PRN Pain Nitroglycerin 1 inch 05/23/18 00:00 05/23/18 05:20 Nitro-Bid Oint TOPICAL Not Given Q6HR [facility] Nitroglycerin 0.4 mg 05/22/18 20:47 Nitrostat SUBLINGUAL Q5M PRN Chest Pain Quetiapine Fumarate 100 mg 05/22/18 23:00 05/23/18 00:21 Seroquel PO 100 mg HS KAREEM Administration Quetiapine Fumarate 25 mg 05/22/18 23:00 05/23/18 00:21 Seroquel PO 25 mg TID KAREEM Administration Intake and Output 05/22/18 05/23/18 05/23/18 22:59 06:59 14:59 Other: Voiding Method Toilet # Voids 1 2 Weight 83.4 kg 84.2 kg 05/22/18 18:15 05/22/18 18:15
--- NOTE | 2018-05-23 12:19 | ECHOF ---
Referral Reason:cp, sob MEASUREMENTS -------- HEIGHT: 175.3 cm WEIGHT: 83.9 kg BP: RVIDd: 2.5 cm (< 3.3) IVSd: 1.1 cm (0.6 - 1.1) LVIDd: 4.7 cm (3.9 - 5.3) LVPWd: 1.1 cm (0.6 - 1.1) IVSs: 1.5 cm LVIDs: 2.8 cm LVPWs: 1.4 cm LAESV Index (A-L): 27.09 ml/m Ao Diam: 3.0 cm (2.0 - 3.7) AV Cusp: 1.9 cm (1.5 - 2.6) LA Diam: 3.0 cm (2.7 - 3.8) EPSS: 0.5 cm MV E Brian: 0.74 m/s MV DecT: 230 ms MV A Brian: 0.45 m/s MV E/A Ratio: 1.63 RAP: 5.00 mmHg RVSP: 23.66 mmHg MV EF SLOPE: 140.45 mm/s (70 - 150) MV EXCURSION: 2.14 cm (> 18.000) FINDINGS -------- Sinus rhythm. This was a technically good study. The left ventricular size is normal. There is borderline concentric left ventricular hypertrophy. Overall left ventricular systolic function is normal with, an EF between 55 - 60 %. The right ventricle is normal in size and function. Normal LA size by volume 22+/-6 ml/m2. RA appears enlarged. The aortic valve is trileaflet, and appears structurally normal. No aortic stenosis or regurgitation. The mitral valve leaflets are mildly thickened. Mild mitral regurgitation is present. Trace tricuspid regurgitation present. Right ventricular systolic pressure is normal at < 35 mmHg. There is no evidence of pulmonary hypertension. Trace/mild (physiologic) pulmonic regurgitation. The aortic root size is normal. Normal inferior vena cava with normal inspiratory collapse consistent with estimated right atrial pre ssure of 5 mmHg. There is no pericardial effusion. CONCLUSIONS -------- 1. Sinus rhythm. 2. This was a technically good study. 3. The left ventricular size is normal. 4. There is borderline concentric left ventricular hypertrophy. 5. Overall left ventricular systolic function is normal with, an EF between 55 - 60 %. 6. Normal LA size by volume 22+/-6 ml/m2. 7. RA appears enlarged. 8. The aortic valve is trileaflet, and appears structurally normal. No aortic stenosis or regurgitati on. 9. The mitral valve leaflets are mildly thickened. 10. Mild mitral regurgitation is present. 11. Trace tricuspid regurgitation present. 12. Right ventricular systolic pressure is normal at < 35 mmHg. 13. There is no evidence of pulmonary hypertension. 14. Trace/mild (physiologic) pulmonic regurgitation. 15. The aortic root size is normal. 16. There is no pericardial effusion. OVERCASTER: Ender Patton RDCS
[2018-05-23] MEDS ORDERED: SODIUM CHLORIDE 0.9% 1,000 ML IV SCH (18:30)
--- NOTE | 2018-05-23 19:51 | HP ---
HISTORY AND PHYSICAL DATE OF ADMISSION: 05/22/18. DATE OF SERVICE: 05/23/18. PRESENTING COMPLAINT: Chest pain. HISTORY OF PRESENTING COMPLAINT: This is a 63-year-old patient of Dr. Marty Faulkner. Chronic stable medical conditions include esophageal stricture with recurrent dilatation, fibromyalgia, depression, osteoarthritis of the hips and knees, chronic congestive heart failure, EF not known stable, and chronic obstructive pulmonary disease. The patient for about 9 days has had pain in the lower sternal area, pretty much constant, sometimes goes down to the left side of the chest. Occasionally feels dizzy, no perspiration. No shortness of breath. The patient is able to tolerate a diet. The patient came in to get a cardiac cause ruled out. There is currently no swelling of the legs. No cough. No fever. No chills. Got occasional heartburn. REVIEW OF SYSTEMS: CONSTITUTIONAL: Tired. HEENT: None. RESPIRATORY: None. CARDIOVASCULAR: As above. GASTROINTESTINAL: Heartburn. GENITOURINARY: None. MUSCULOSKELETAL: Pain in the joints. DERMATOLOGICAL, HEMATOLOGIC, LYMPHATIC: None. PSYCHIATRY: A bit anxious. NEUROLOGICAL: None. PAST HISTORY: Congestive heart failure, EF not known. COPD, mild cognitive impairment, fibromyalgia, GERD, hyperlipidemia, osteoarthritis, esophageal stricture with balloon stretching last from 7 months ago, GERD, skin cancer, kidney stone with lithotripsy. PAST SURGICAL HISTORY: Adenoidectomy, appendectomy, breast surgery, hernia repair, hysterectomy, tonsillectomy, lithotripsy, stomach bypass, upper GI bleed, tumor removed from left chao, multiple skin biopsies, umbilical hernia repair, lumpectomy right breast was benign. PSYCH HISTORY: Anxiety, depression. The patient is on disability. Did work as a nurse. No smoking. No alcohol. FAMILY HISTORY: Cancer in brothers and sisters including breast, esophageal and pancreatic. HOME MEDICATIONS: Xanax 2 mg p.o. t.i.d., Prozac 80 mg p.o. b.i.d., DuoNeb q.i.d. p.r.n., Seroquel 25 mg t.i.d., Seroquel 100 mg at bedtime, Zantac 150 mg p.o. b.i.d., Prilosec 40 mg b.i.d., Motrin 800 mg q.8h p.r.n., Breo Ellipta 1 puff daily, Adderall 20 mg b.i.d., Baclofen 10 mg p.o. q.8, Lipitor 20 mg q.h.s. ALLERGIES: ADHESIVE TAPE, MORPHINE. PHYSICAL EXAMINATION: Vital signs on presentation: Temperature 98.5, pulse 71, respiratory 18, blood pressure 126/88, pulse ox 97% on room air. GENERAL APPEARANCE: Average build, sitting up, awake, comfortable. EYES: Pupils equal. Conjunctivae normal.. HEENT: External appearance of nose and ears normal. Oral cavity normal. NECK: JVD not raised. Mass not palpable. RESPIRATORY: Effort normal. Lungs, slightly decreased breath sounds. CARDIOVASCULAR: 1st and 2nd sounds are normal. No edema. ABDOMEN: Soft, nontender. Liver and spleen not palpable. LYMPHATIC: No lymph node palpable in neck or axillae. PSYCHIATRY: Alert and oriented x3. Mood and affect slightly anxious-appearing. NEUROLOGICAL: Pupils equal. Cranial nerves grossly intact. Power and sensation grossly intact. MUSCULOSKELETAL: Evidence of osteoarthritis especially in the hands and knees. INVESTIGATIONS: White count 4.4, hemoglobin 12.1, potassium 4.6, BUN 25, creatinine 0.86. Troponin x3 negative. LDL 82. A chest x-ray personally reviewed by me shows normal lung vaughn. No obvious infiltrate. Report reveals some possible atelectasis. EKG tracing personally reviewed by me shows normal sinus rhythm. ASSESSMENT: 1. Anterior chest wall pain present constantly for 9 days, probably musculoskeletal, will need to rule out a cardiac cause. 2. Chronic esophageal stricture with recurrent dilatation, currently asymptomatic. 3. Chronic fibromyalgia. 4. Depression, not otherwise specified. 5. Primary osteoarthritis especially in the hips and knees. 6. Chronic obstructive pulmonary disease, stable. 7. Chronic congestive heart failure from diastolic dysfunction. Ejection fraction 55- 60 percent stable. PLAN: Home medications are resumed. Cardiology was consulted. Care was discussed with the patient. Questions were answered. Cardiac enzymes were negative. MMODL / IJN: [id number] /
[2018-05-24] MEDS: QUEtiapine 25 MG TAB PO SCH (10:03)
[2018-05-24] MEDS: ASPIRIN 325 MG TAB PO SCH (10:03)
[2018-05-24] MEDS: FLUoxetine HCL 20 MG CAP PO SCH (10:03)
[2018-05-24] MEDS: ALPRAZolam 1 MG TAB PO SCH (10:03)
[2018-05-24 12:31] VITALS: BP 99/63; PULSE 94; RESP 18; TEMP 99
--- NOTE | 2018-05-25 02:54 | DS ---
DISCHARGE SUMMARY DATE OF ADMISSION: 05/22/2018. DATE OF DISCHARGE: 05/24/18. FINAL DIAGNOSES: 1. Anterior chest wall pain probably musculoskeletal. Cardiac cause to be ruled out as an outpatient. 2. Chronic esophageal stricture with recurrent dilatation, currently asymptomatic. 3. Chronic fibromyalgia. 4. Depression, not otherwise specified. 5. Primary osteoarthritis especially in the hips and knees. 6. Chronic obstructive pulmonary disease, stable. 7. Chronic congestive heart failure from diastolic dysfunction. EF is 60%. HOSPITAL COURSE: This patient presented with chest pain. The patient is seen by Dr. Martinez, who did a 2-D echocardiogram that was unremarkable. Troponins were negative. He will do a stress test as an outpatient. He talked to the patient. PHYSICAL EXAMINATION: Temperature 99, pulse 94, respiratory 18, blood pressure 99/63, pulse ox 95 percent on room air. On exam, lungs decreased breath sounds. Cardiovascular: 1st and 2nd sounds normal. DISCHARGE MEDICATIONS: 1. Xanax 2 mg p.o. t.i.d. 2. Lipitor 20 mg q.h.s. 3. Adderall 20 mg p.o. b.i.d. 4. Prozac 80 mg b.i.d. 5. Prilosec 40 mg b.i.d. 6. Baclofen 10 mg p.o. q.8h. 7. Seroquel 100 mg q.h.s. 8. Breo Ellipta 200/25 1 puff daily. 9. Motrin 800 mg q.8h p.r.n. 10.DuoNeb q.i.d. p.r.n. 11.Seroquel 25 mg p.o. t.i.d. 12.Zantac 150 mg p.o. b.i.d. FOLLOW UP: Follow up with Dr. Martinez in 2 weeks. Follow up with Dr. Marty Faulkner in [address] Martinez will arrange an outpatient stress test. Copy to Dr. Faulkner. MMNIGELL / IJN: [id number] /
== END 2018-05-24 13:22 | disposition home or self-care (01) ==
LOC: EC 17:45 → 1SOBS 20:47
PROVIDERS: ADMIT Hospitalist; ATTEND Hospitalist
DX: R07.89 Other chest pain (principal); M79.7 Fibromyalgia; I50.32 Chronic diastolic (congestive) heart failure; F32.9 Major depressive disorder, single episode, unspecified; M16.0 Bilateral primary osteoarthritis of hip; M17.0 Bilateral primary osteoarthritis of knee; K22.2 Esophageal obstruction; F03.90 Unspecified dementia, unspecified severity, without behavioral disturbance, psychotic disturbance, mood disturbance, and anxiety; G25.81 Restless legs syndrome; K21.9 Gastro-esophageal reflux disease without esophagitis; J44.9 Chronic obstructive pulmonary disease, unspecified; E78.5 Hyperlipidemia, unspecified; Z85.828 Personal history of other malignant neoplasm of skin; Z90.49 Acquired absence of other specified parts of digestive tract; Z79.899 Other long term (current) drug therapy; Z79.890 Hormone replacement therapy; Z88.5 Allergy status to narcotic agent; Z88.8 Allergy status to other drugs, medicaments and biological substances; Z87.01 Personal history of pneumonia (recurrent); Z90.710 Acquired absence of both cervix and uterus; I25.2 Old myocardial infarction
CPT/HCPCS: 99285; 36415; 94640; 93005; 93306; 83880; 80061; 80053; 82550 ×2; 82553 ×2; 83735; 84484 ×2; 85025; 85610; 85730; 71046; G0378 ×3

== ENCOUNTER → 2018-08-09 | Outpatient (CLI) | payer MEDICARE, OTHER ==
--- NOTE | 2018-08-10 08:51 | XR ---
EXAMINATION TYPE: XR chest 2V, XR sternum DATE OF EXAM: 08/09/2018 COMPARISON: Chest x-ray May 22, 2018 HISTORY: Chest and sternal pain. TECHNIQUE: Frontal and lateral views of the chest are obtained. 2 views of sternum are acquired. FINDINGS: There is chronic parenchymal change without suspicious focal air space opacity, pleural ef fusion, or pneumothorax seen. The cardiac silhouette size is within normal limits. The osseous str uctures are intact. 2 views of sternum show no acute displaced fracture. Overlying soft tissue is unremarkable. IMPRESSION: 1. Chronic Yessenia changes without acute pulmonary process. 2. No acute displaced sternal fracture is evident.
== END | disposition home or self-care (01) ==
LOC: RADXRMAIN 15:38
PROVIDERS: ATTEND Family Medicine
DX: R06.02 Shortness of breath (principal); R07.2 Precordial pain
CPT/HCPCS: 71046; 71120

== ENCOUNTER → 2018-09-13 | Outpatient (CLI) | payer MEDICARE, OTHER ==
--- NOTE | 2018-09-13 09:38 | CT ---
EXAMINATION TYPE: CT angio chest DATE OF EXAM: 09/13/2018 COMPARISON: CT of 2015 HISTORY: Mid chest discomfort for 1 month after hearing "cracking sound" CT DLP: 397.3 mGycm. Automated Exposure Control for Dose Reduction was Utilized. CONTRAST: CTA scan of the thorax is performed with IV Contrast, patient injected with 100 mL of Isovue 370, pul monary embolism protocol. MIP Images are created on CT scanner and reviewed. FINDINGS: LUNGS: There is a right upper lobe solid spiculated 4 mm pulmonary nodule directly above the right mi nor fissure on series 5 image 73, series 7 image 18, and series 8 image 13. Bibasilar atelectasis and pleural parenchymal scarring within the left lower lobe is noted There is no pleural effusion or p neumothorax seen. The tracheobronchial tree is patent. MEDIASTINUM: There is satisfactory enhancement of the pulmonary artery and its branches, there is no CT evidence for pulmonary embolism. There are no greater than 1 cm hilar or mediastinal lymph nodes. No cardiomegaly or pericardial effusion is seen. Moderate coronary calcifications are present. OTHER: Evidence of prior partial gastrectomy with a small hiatal hernia present. Nonobstructing 4 mm left renal calculus is noted. Mild multilevel degenerative changes of the spine are seen. IMPRESSION: 1. Spiculated 4 mm right upper lobe pulmonary nodule for which follow-up is recommended in 6 months g iven its spiculated morphology. This is new from the prior 2014. 2. No evidence of pulmonary embolus. 3. Moderate coronary artery calcifications within the left anterior descending coronary artery, risk factor for coronary artery disease.
--- NOTE | 2018-09-13 10:29 | US ---
EXAMINATION TYPE: US abdomen complete DATE OF EXAM: 09/13/2018 COMPARISON: US & CT CLINICAL HISTORY: R11.2 nausea with vomiting. Epigastric pain EXAM MEASUREMENTS: Liver Length: 15.8 cm Gallbladder Wall: 0.3 cm CBD: 0.6 cm Spleen: 11.4 cm Right Kidney: 9.1 x 4.8 x 5.4 cm Left Kidney: 11.9 x 4.9 x 6.0 cm Technically difficult study due to overlying bowel gas. Pancreas: not visualized due to midline bowel gas Liver: There is a coarse echotexture. No evident mass. Obtained measurement may under represent size of the liver. Gallbladder: No stones seen Evidence for sonographic Castillo's sign: No CBD: wnl Spleen: wnl Right Kidney: No hydronephrosis or masses seen Left Kidney: No hydronephrosis or masses seen Upper IVC: wnl in its visualized portions Abd Aorta: wnl Kidneys show normal cortical medullary differentiation.There is no ascites. IMPRESSION: There are some limitations the exam. Possible underlying hepatic steatosis, hepatocellula r disease.
== END | disposition home or self-care (01) ==
LOC: RADCTMAIN 07:37
PROVIDERS: ATTEND Family Medicine
DX: I25.10 Atherosclerotic heart disease of native coronary artery without angina pectoris (principal); R91.1 Solitary pulmonary nodule; R11.2 Nausea with vomiting, unspecified
CPT/HCPCS: 76700; 71275; Q9967

== ENCOUNTER → 2018-10-01 | Outpatient (CLI) | payer MEDICARE, OTHER ==
--- NOTE | 2018-10-01 09:45 | USB ---
Reason for exam: additional evaluation requested from prior study. History: Patient is postmenopausal and history of other cancer. Family history of premenopausal breast cancer in sister at age 27 and breast cancer in maternal grandmother at age 80. Benign excisional biopsy of the right breast, 2013. Taking unspecified hormones. Physical Findings: Nurse did not find any significant physical abnormalities on exam. US Breast BILAT Left complete breast ultrasound includes all four quadrants, the retroareolar region and axilla. Finding demonstrates a 0.5 x 0.2 x 0.6cm oval, cystic lesion at the posterior nipple. Right complete breast ultrasound includes all four quadrants, the retroareolar region and axilla. Finding demonstrates no cystic or solid lesion seen. These results were verbally communicated with the patient and result sheet given to the patient on 10/01/18. ASSESSMENT: Benign, BI-RAD 2 RECOMMENDATION: Routine screening mammogram of both breasts in 1 year.
--- NOTE | 2018-10-01 09:46 | MM ---
Reason for exam: additional evaluation requested from prior study. Last mammogram was performed 14 years and 11 months ago. History: Patient is postmenopausal and history of other cancer. Family history of premenopausal breast cancer in sister at age 27 and breast cancer in maternal grandmother at age 80. Benign excisional biopsy of the right breast, 2013. Taking unspecified hormones. Physical Findings: Nurse did not find any significant physical abnormalities on exam. MG 3D Diag Mammo W/Cad BOB Bilateral CC and MLO view(s) were taken. Prior study comparison: July 19, 2015, mammogram. There are scattered fibroglandular densities. Benign appearing bilateral calcifications. No suspicious abnormality. No significant new findings when compared with previous films. These results were verbally communicated with the patient and result sheet given to the patient on 10/01/18. ASSESSMENT: Benign, BI-RAD 2 RECOMMENDATION: Routine screening mammogram of both breasts in 1 year.
== END ==
LOC: RADUSWWP 08:10
PROVIDERS: ATTEND Family Medicine
DX: R92.8 Other abnormal and inconclusive findings on diagnostic imaging of breast (principal); Z80.3 Family history of malignant neoplasm of breast
CPT/HCPCS: 77066; 76641; G0279; 77062

== ENCOUNTER 2018-11-04 07:50 | Day surgery (SDC) | payer MEDICARE, OTHER ==
[2018-10-30 09:28] VITALS: BMI 29.0
[~2018-11-04 07:50] MED LIST: LACTATED RINGERS 1,000 ML IV SCH; LIDOCAINE 1% 20 ML VIAL (10MG/ML) FOR IV START INTRADERMA PRN
[2018-11-04 08:06] VITALS: RESP 18; TEMP 97.8
[2018-11-04] MEDS ORDERED: LACTATED RINGERS 1,000 ML IV ONE (08:22)
[2018-11-04] MEDS ORDERED: fentaNYL (PF) 50 MCG/ML 2 ML AMP ONE (08:59)
[2018-11-04] MEDS ORDERED: PROPOFOL 10 MG/ML 20 ML VIAL IV ONE (08:59)
[2018-11-04] MEDS ORDERED: LIDOCAINE 1% INJ 10MG/ML (20 ML MDV) ONE (08:59)
--- NOTE | 2018-11-04 09:37 | P.PCN ---
Date of Procedure: 11/04/18 Procedure(s) Performed: Procedure: Esophagogastroduodenoscopy and biopsy. Preoperative diagnosis: Atypical chest pains. Postoperative diagnosis: S/P Owen-en-Y gastric anastomosis with no obvious abnormalities in the esophagus, gastric remnant or the anastomosis area. Preparation and sedation: Was provided by anesthesia. Brief clinical history: The patient is a 63-year-old female who had gastric stapling surgery in 1986 that was converted to a Owen-en-Y bypass in 1999 secondary to GI bleeding. The patient had issues with dysphagia and had required dilation in 2009 when she was living in [place]. I performed an upper endoscopy in 2013 and did not find significant stenosis to require intervention at that time. The patient was admitted to [facility] in January 2016 because of shortness of breath and was hospitalized the week before at [facility] for bilateral pneumonia believed to be related to aspiration. The patient had a barium study at that time with finding of stenosis above the diaphragmatic hiatus to around 75% of the lumen. An upper endoscopy at that time did not show any strictures or Fenton's esophagus. The patient is referred now because of atypical chest pain of around 1 month duration. She continues to have occasional solid food dysphagia but no other alarm symptoms. Her reflux symptoms have improved when ranitidine was added to her regimen of PPI. This evaluation is to assess for esophagitis or other pathology. Procedure: With the patient on her left lateral decubitus position and after informed consent and adequate sedation, I passed the Olympus-GIF H 190 video upper endoscope through the cricopharyngeus down the esophagus. The esophagus appeared healthy with no obvious erosions or ulcers. GE junction was around 38 cm from the incisors. There were no strictures or Fenton's esophagus. The endoscope was then advanced to the gastric remnant. This appeared as a blind pouch. Alongside I saw the opening that leads into the small bowel. The endoscope was advanced into the small bowel for a good distance. No abnormalities were seen in the gastric remnant or in the small intestine. I paid particular attention to the luminal size of the esophagus at the level of the anastomosis and above the diaphragmatic hiatus and I observed that in both the forward and retroflexed view. Neither view showed critical narrowing to require dilation with the size balloons we have, as previously noted. There was no significant retained secretions in the gastric pouch or debris, although its location and its nature can make it act as a reservoir for secretions that could regurgitate into the esophagus and possibly cause aspiration perhaps nocturn ally, as I observed back in 2016. I obtained biopsies from the esophagus then the endoscope was withdrawn. The patient tolerated the procedure well. Plan: The patient was reassured. Will await biopsy results and make further plans based on her course and biopsy results. I would be happy to see in the office if her symptoms persist. She'll follow-up with you as planned.
[2018-11-04 09:54] VITALS: BP 110/74; PULSE 61
== END 2018-11-04 10:29 | disposition home or self-care (01) ==
LOC: ORWHC2ENDO 07:50
DX: K21.0 Gastro-esophageal reflux disease with esophagitis (principal); R07.89 Other chest pain; R13.10 Dysphagia, unspecified; Z98.84 Bariatric surgery status; E78.5 Hyperlipidemia, unspecified; J44.9 Chronic obstructive pulmonary disease, unspecified; F32.9 Major depressive disorder, single episode, unspecified; F41.9 Anxiety disorder, unspecified; Z79.51 Long term (current) use of inhaled steroids; Z79.899 Other long term (current) drug therapy; Z88.5 Allergy status to narcotic agent
CPT/HCPCS: 43239; J2001; J3010; J2704; 88305

== ENCOUNTER 2019-01-29 09:14 | Inpatient (IN) | payer MEDICARE, OTHER ==
[2019-01-29] MEDS ORDERED: IPRATROPIUM-ALBUTEROL 3 ML NEB INHALATION STA ×3 (09:51→13:13)
[2019-01-29] MEDS ORDERED: methylPREDNISolone SOD SUCCI 125 MG/2 ML VIAL IV STA (09:51)
[2019-01-29] MEDS ORDERED: SODIUM CHLORIDE 0.9% 1,000 ML IV STA (09:51)
--- NOTE | 2019-01-29 09:56 | ED ---
SOB HPI - General Chief Complaint: Shortness of Breath Stated Complaint: SOB Time Seen by Provider: 01/29/19 09:24 Source: patient, RN notes reviewed Mode of arrival: wheelchair Limitations: no limitations - History of Present Illness Initial Comments: Is a 63-year-old female history of COPD who states she had the onset last evening of the beginnings of shortness of breath. She states she will go down rather quickly. 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 She states she was in the hospital for 26 hours yesterday with her daughter was admitted and started feeling like she was becoming short of breath at this time. She denies any fever chills nausea vomiting sweats. No phlegm production minimal cough. No chest pain no other modifying factors MD Complaint: shortness of breath - Related Data Home Medications Medication Instructions Recorded Confirmed ALPRAZolam [Xanax] 2 mg PO TID 12/14/13 01/29/19 Dextroamphetamine/Amphetamine 20 mg PO BID 12/14/13 01/29/19 [Adderall] FLUoxetine HCL [PROzac] 40 mg PO BID 12/14/13 01/29/19 Omeprazole [PriLOSEC] 40 mg PO BID 09/21/14 01/29/19 Baclofen 10 mg PO Q8H PRN 01/04/16 01/29/19 QUEtiapine [SEROquel] 100 mg PO HS 01/04/16 01/29/19 Fluticasone/Vilanterol [Breo 1 puff INHALATION RT-DAILY 05/15/18 01/29/19 Ellipta 200-25 Mcg INH] Ibuprofen [Motrin] 800 mg PO Q8H PRN 05/15/18 01/29/19 Ipratropium-Albuterol Nebulize 3 ml INHALATION RT-QID PRN 05/15/18 01/29/19 [Duoneb 0.5 mg-3 mg/3 ml Soln] Ranitidine HCl 150 mg PO BID 05/15/18 01/29/19 Furosemide [Lasix] 20 mg PO DAILY PRN 10/30/18 01/29/19 Pravastatin Sodium [Pravachol] 20 mg PO HS 01/01/19 01/29/19 Allergies Allergy/AdvReac Type Severity Reaction Status Date / Time adhesive tape AdvReac Skin Verified 01/29/19 09:50 Tearing morphine AdvReac Confusion Verified 01/29/19 09:50 Review of Systems ROS Statement: Those systems with pertinent positive or pertinent negative responses have been documented in the HPI. ROS Other: All systems not noted in ROS Statement are negative. Past Medical History Past Medical History: Asthma, Cancer, Heart Failure, COPD, Dementia, Fibromyalgia, GERD/Reflux, GI Bleed, Hyperlipidemia, Memory Impairment, Myocardial Infarction ([place]), Osteoarthritis (OA), Pneumonia, Sleep Apnea/CPAP/BIPAP Additional Past Medical History / Comment(s): esophageal stricture with balloon stretching. sepsis with pneumonia(recurrent) r/t to GERD causing aspiration pneumonia. skin ca. minor [place] 2 years ago. kidney stone with lithotripsy. arthrit is,rls.Hypotension, Anemia, nex dx of malignant nodule upper rt lung Last Myocardial Infarction Date:: 2015 History of Any Multi-Drug Resistant Organisms: None Reported Past Surgical History: Adenoidectomy, Appendectomy, Breast Surgery, Hernia Repair, Hysterectomy, Tonsillectomy Additional Past Surgical History / Comment(s): lithotripsy, "stomach bypass secondary to gi bleed, tumor removed from left chao. mulitple skin bx. 3 umbilical hernia repairs, septal repair, 2 lumpectomies right breast both benign, egd Past Anesthesia/Blood Transfusion Reactions: Previous Problems w/ Anesthesia Additional Past Anesthesia/Blood Transfusion Reaction / Comment(s): bp dips low Past Psychological History: Anxiety, Depression, PTSD Smoking Status: Never smoker Past Alcohol Use History: None Reported Past Drug Use History: None Reported - Past Family History Brother(s) Family Medical History: Cancer Sister(s) Family Medical History: Cancer Mother Family Medical History: Cancer Additional Family Medical History / Comment(s): brother, sister and mother all had terminal cancers - breast, esophageal, and pancreatic General Exam - General Exam Comments Initial Comments: This is a well-developed well-nourished awake alert oriented 3 female Limitations: no limitations General appearance: alert, anxious, in distress Head exam: Present: atraumatic, normocephalic, normal inspection Eye exam: Present: normal appearance, PERRL, EOMI. Absent: scleral icterus, conjunctival injection, periorbital swelling ENT exam: Present: mucous membranes dry Neck exam: Present: normal inspection. Absent: tenderness, meningismus, lymphadenopathy Respiratory exam: Present: wheezes, decreased breath sounds. Absent: respiratory distress, rales, rhonchi, stridor Cardiovascular Exam: Present: regular rate, normal rhythm, normal heart sounds. Absent: systolic murmur, diastolic murmur, rubs, gallop, clicks GI/Abdominal exam: Present: soft, normal bowel sounds. Absent: distended, tenderness, guarding, rebound, rigid Extremities exam: Present: normal inspection, full ROM, normal capillary refill, pedal edema (Trace pedal edema). Absent: tenderness, joint swelling, calf tenderness Back exam: Present: normal inspection Neurological exam: Present: alert, oriented X3, CN II-XII intact Psychiatric exam: Present: normal affect, normal mood Skin exam: Present: warm, dry, intact, normal color. Absent: rash Course Vital Signs 01/29/19 01/29/19 01/29/19 09:16 10:21 10:29 Temperature 98.3 F Pulse Rate 69 68 68 Respiratory 18 Rate Blood Pressure 127/77 O2 Sat by Pulse 97 Oximetry 01/29/19 13:06 Temperature Pulse Rate 76 Respiratory Rate Blood Pressure O2 Sat by Pulse Oximetry - Reevaluation(s) Reevaluation #1: 01/29/19 13:12 I did reevaluate patient several occasions she still having difficulty with breathing and Ms. breath sounds with wheezing she will be admitted Medical Decision Making - Lab Data Result diagrams: 01/29/19 09:38 01/29/19 09:38 Lab Results 01/29/19 01/29/19 01/29/19 Range/Units 09:38 09:38 09:38 WBC 3.7 L (3.8-10.6) k/uL RBC 4.19 (3.80-5.40) m/uL Hgb 11.9 (11.4-16.0) gm/dL Hct 38.5 (34.0-46.0) % MCV 91.8 (80.0-100.0) fL MCH 28.3 (25.0-35.0) pg MCHC 30.9 L (31.0-37.0) g/dL RDW 14.1 (11.5-15.5) % Plt Count 266 (150-450) k/uL Neutrophils % 62 % Lymphocytes % 25 % Monocytes % 8 % Eosinophils % 2 % Basophils % 1 % Neutrophils # 2.3 (1.3-7.7) k/uL Lymphocytes # 0.9 L (1.0-4.8) k/uL Monocytes # 0.3 (0-1.0) k/uL Eosinophils # 0.1 (0-0.7) k/uL Basophils # 0.0 (0-0.2) k/uL Hypochromasia Slight PT 9.5 (9.0-12.0) sec INR 0.9 (<1.2) APTT 21.0 L (22.0-30.0) sec Sodium 141 (137-145) mmol/L Potassium 4.3 (3.5-5.1) mmol/L Chloride 109 H (98-107) mmol/L Carbon Dioxide 26 (22-30) mmol/L Anion Gap 6 mmol/L BUN 24 H (7-17) mg/dL Creatinine 0.67 (0.52-1.04) mg/dL Est GFR (CKD-EPI)AfAm >90 (>60 ml/min/1.73 sqM) Est GFR (CKD-EPI)NonAf >90 (>60 ml/min/1.73 sqM) Glucose 96 (74-99) mg/dL Calcium 8.7 (8.4-10.2) mg/dL Magnesium 2.1 (1.6-2.3) mg/dL Total Bilirubin 0.5 (0.2-1.3) mg/dL AST 26 (14-36) U/L ALT 27 (9-52) U/L Alkaline Phosphatase 90 (38-126) U/L Troponin I (0.000-0.034) ng/mL NT-Pro-B Natriuret Pep pg/mL Total Protein 6.6 (6.3-8.2) g/dL Albumin 3.9 (3.5-5.0) g/dL 01/29/19 01/29/19 Range/Units 09:38 11:00 WBC (3.8-10.6) k/uL RBC (3.80-5.40) m/uL Hgb (11.4-16.0) gm/dL Hct (34.0-46.0) % MCV (80.0-100.0) fL MCH (25.0-35.0) pg MCHC (31.0-37.0) g/dL RDW (11.5-15.5) % Plt Count (150-450) k/uL Neutrophils % % Lymphocytes % % Monocytes % % Eosinophils % % Basophils % % Neutrophils # (1.3-7.7) k/uL Lymphocytes # (1.0-4.8) k/uL Monocytes # (0-1.0) k/uL Eosinophils # (0-0.7) k/uL Basophils # (0-0.2) k/uL Hypochromasia PT (9.0-12.0) sec INR (<1.2) APTT (22.0-30.0) sec Sodium (137-145) mmol/L Potassium (3.5-5.1) mmol/L Chloride (98-107) mmol/L Carbon Dioxide (22-30) mmol/L Anion Gap mmol/L BUN (7-17) mg/dL Creatinine (0.52-1.04) mg/dL Est GFR (CKD-EPI)AfAm (>60 ml/min/1.73 sqM) Est GFR (CKD-EPI)NonAf (>60 ml/min/1.73 sqM) Glucose (74-99) mg/dL Calcium (8.4-10.2) mg/dL Magnesium (1.6-2.3) mg/dL Total Bilirubin (0.2-1.3) mg/dL AST (14-36) U/L ALT (9-52) U/L Alkaline Phosphatase (38-126) U/L Troponin I <0.012 (0.000-0.034) ng/mL NT-Pro-B Natriuret Pep 108 pg/mL Total Protein (6.3-8.2) g/dL Albumin (3.5-5.0) g/dL - EKG Data -: EKG Interpreted by Me (Normal sinus rhythm a 67 appear interval 136 QRS duration 78 QT since QTC 4) - Radiology Data Radiology results: report reviewed (I did review the imaging and report or is evidence a left lower lobe infiltrate.), image reviewed Critical Care Time Critical Care Time: Yes Critical Care Time: 31 minutes of critical care time which includes initial presentation with history physical labs x-rays multiple reevaluation the patient to responsive therapy discuss with the patient regarding the findings admission orders and documentation the above discussion with Dr. go Disposition Clinical Impression: Acute exacerbation of chronic obstructive airways disease, Adult respiratory distress syndrome, Left lower lobe pneumonia Disposition: ADMITTED IP TO THIS HOSP Condition: Fair Referrals: Marty Faulkner DO [Primary Care Provider] - 1-2 days
[2019-01-29] MEDS ORDERED: ACETAMINOPHEN TAB 325 MG TAB PO STA (10:18)
[2019-01-29 10:37] LABS: ALT 27 U/L (9-52); AST 26 U/L (14-36); African American GFR (CKD) >90 (>60 ml/min/1.73 sqM); Albumin 3.9 g/dL (3.5-5.0); Alkaline Phosphatase 90 U/L (38-126); Anion Gap 6 mmol/L; Blood Urea Nitrogen 24 mg/dL (7-17); Calcium 8.7 mg/dL (8.4-10.2); Carbon Dioxide 26 mmol/L (22-30); Chloride 109 mmol/L (98-107); Glucose 96 mg/dL (74-99); Magnesium 2.1 mg/dL (1.6-2.3); Potassium 4.3 mmol/L (3.5-5.1); Sodium 141 mmol/L (137-145); Total Bilirubin 0.5 mg/dL (0.2-1.3); Total Protein 6.6 g/dL (6.3-8.2)
[2019-01-29 10:48] LABS: INR 0.9 (<1.2); Prothrombin Time 9.5 sec (9.0-12.0)
[2019-01-29 10:53] LABS: Basophils % (A) 1 %; Eosinophils # (A) 0.1 k/uL (0-0.7); Eosinophils % (A) 2 %; HCT 38.5 % (34.0-46.0); HGB 11.9 gm/dL (11.4-16.0); Hypochromasia Slight; Lymphocytes # (A) 0.9 k/uL (1.0-4.8); Lymphocytes % (A) 25 %; MCH 28.3 pg (25.0-35.0); MCHC 30.9 g/dL (31.0-37.0); MCV 91.8 fL (80.0-100.0); Mean Platelet Volume 8.2; Monocytes # (A) 0.3 k/uL (0-1.0); Monocytes % (A) 8 %; Neutrophils # (A) 2.3 k/uL (1.3-7.7); Neutrophils % (A) 62 %; Platelet Count 266 k/uL (150-450); RBC 4.19 m/uL (3.80-5.40); RDW 14.1 % (11.5-15.5); WBC 3.7 k/uL (3.8-10.6)
--- NOTE | 2019-01-29 11:00 | XR ---
EXAMINATION TYPE: XR chest 2V DATE OF EXAM: 01/29/2019 COMPARISON: Chest x-ray January 01, 2019 HISTORY: Difficulty in breathing TECHNIQUE: Frontal and lateral views of the chest are obtained. FINDINGS: There is lateral left basilar opacity new from prior. The cardiac silhouette size remains within normal limits. The osseous structures are intact. IMPRESSION: New left basilar acute infiltrate and/or atelectasis.
[2019-01-29] MEDS ORDERED: cefTRIAXone IN SWFI 1,000 MG/10 ML SYRINGE IVP STA (12:10)
[2019-01-29] MEDS ORDERED: AZITHROMYCIN 500 MG in SODIUM CHLORIDE 0.9% 250 ML IVPB STA (13:15)
[2019-01-29] MEDS ORDERED: PNEUMONIA PROTOCOL UTILIZED 1 EACH MISC PO PRN (13:15)
[2019-01-29] MEDS ORDERED: FUROSEMIDE 20 MG TAB PO PRN (13:19)
[2019-01-29] MEDS ORDERED: BACLOFEN 10 MG TAB PO PRN (13:19)
[2019-01-29] MEDS ORDERED: IBUPROFEN 800 MG TAB PO PRN (13:19)
[2019-01-29] MEDS: SODIUM CHLORIDE 0.9% 1,000 ML IV SCH (13:59)
[2019-01-29] MEDS: IPRATROPIUM-ALBUTEROL 3 ML NEB INHALATION SCH ×3 (16:05→23:01)
--- NOTE | 2019-01-29 16:08 | P.CNPUL ---
History of Present Illness Consult date: 01/29/19 Reason for consult: pneumonia History of present illness: This is a 63-year-old female patient with known history of COPD/asthma who is been maintained on a combination of Breo Ellipta and Singulair on outpatient basis. The patient came into the hospital around 3 days ago as her daughter is been suffering from recurrent seizures. As such the patient has been spending most of her time in the hospital taking care of her daughter who is currently admitted to the hospital. During this time as the patient is having increased cough and congestion increased shortness of breath. She was feeling feverish yet there is no documented temperature. She was feeling nauseated. She was also having sweats. No emesis. No diarrhea. No chest pain. No hemoptysis. No pleurisy. She has a previous bouts of pneumonias according to her pH has been followed up in our office regarding her chronic lung disease. She has home oxygen yet she has been using it on a regular basis. She is not smoking for now. In the ED, the patient a chest x-ray and she was diagnosed having a left lower lobe pneumonia and the patient was started on a combination of Rocephin and Zithromax. She was also started on IV Solu-Medrol and DuoNeb nebulized treatments around the clock. The patient's white cell count is at 3.7. Rest of the blood work and electrodes are all within normal limits. Review of Systems Constitutional: Reports chills, Reports fatigue, Reports weakness Eyes: denies as per HPI, denies blurred vision, denies bulging eye, denies decreased vision, denies diplopia, denies discharge, denies dry eye, denies irritation, denies itching, denies pain, denies photophobia, denies loss of peripheral vision, denies loss of vision, denies tunnel vision/blind spots Ears: deny: decreased hearing, ear discharge, earache, tinnitus Breasts: absent: as per HPI, change in shape, gynecomastia, masses, nipple discharge, pain, skin changes, swelling Cardiovascular: Reports decreased exercise tolerance Respiratory: Reports cough, Reports dyspnea, Reports wheezing Gastrointestinal: Reports as per HPI, Reports nausea Genitourinary: Reports as per HPI Menstruation: Reports as per HPI Musculoskeletal: Reports as per HPI Musculoskeletal: absent: ankle pain, ankle stiffness, ankle swelling, as per HPI, elbow pain, elbow stiffness, elbow swelling, foot pain, foot stiffness, foot swelling, hand pain, hand stiffness, hand swelling, hip pain, hip stiffness, hip swelling, knee pain, knee stiffness, knee swelling, shoulder pain, shoulder stiffness, shoulder swelling, wrist pain, wrist stiffness, wrist swelling Integumentary: Reports as per HPI Neurological: Reports as per HPI Psychiatric: Reports as per HPI Endocrine: Reports as per HPI Hematologic/Lymphatic: Reports as per HPI Allergic/Immunologic: Reports as per HPI Past Medical History Past Medical History: Asthma, Cancer, Heart Failure, COPD, Dementia, Fibromyalgia, GERD/Reflux, GI Bleed, Hyperlipidemia, Memory Impairment, Myocardial Infarction ([place]), Osteoarthritis ([place]), Pneumonia, Sleep Apnea/CPAP/BIPAP Additional Past Medical History / Comment(s): Recurrent pneumonia/sepsis, R upper lobe pulmonary nodule 4 mm in size which has been followed up on outpatient basis by Dr. Gar , skin cancer with removals, pt states she had a [place] in 2016 but cannot recall how it was diagnosed-no cath, hypotension, "shock" dementia d/t of daughter, esophageal strictures with ballooning, diverti cular disease, anemia, arthritis in back/hips/knees, RLS, kidney stones which she has passed and had surgically removed, sinus problems, LORIE-stopped wearing device d/t intolerance, hyperlipidemia, fibromyalgia, dementia, osteoarthritis, history of coronary artery disease with previous history of myocardial infarction, history of bariatric surgery for GI bleeding Last Myocardial Infarction Date:: 2015 History of Any Multi-Drug Resistant Organisms: None Reported Past Surgical History: Adenoidectomy, Appendectomy, Breast Surgery, Hernia Repair, Hysterectomy, Tonsillectomy Additional Past Surgical History / Comment(s): R breast lumpectomies x 2 (benign), 3 umbilical hernia repairs, lithotripsies, stomach bypass/bowel resection 2ndary to GI bleed, L chao benign tumor, multiple skin bx/skin cancer removals, EGD/dilations and colonoscopies. Past Anesthesia/Blood Transfusion Reactions: Previous Problems w/ Anesthesia Additional Past Anesthesia/Blood Transfusion Reaction / Comment(s): bp dips low Past Psychological History: Anxiety Smoking Status: Never smoker - Past Family History Brother(s) Family Medical History: Cancer Additional Family Medical History / Comment(s): Psychiatric history also runs in the patient's family. The patient's daughter has committed suicide. The patient's brother and sister and mother all of cancers. Apparently rest cancer and esophageal cancer and pancreatic cancer runs in family unable to give detailed history on that. Sister(s) Family Medical History: Cancer Father Family Medical History: Cancer Additional Family Medical History / Comment(s): Father had lung cancer. Mother Family Medical History: Cancer Additional Family Medical History / Comment(s): Mother had pancreatic cancer. Medications and Allergies Home Medications Medication Instructions Recorded Confirmed Type ALPRAZolam [Xanax] 2 mg PO TID 12/14/13 01/29/19 History Dextroamphetamine/Amphetamine 20 mg PO BID 12/14/13 01/29/19 History [Adderall] FLUoxetine HCL [PROzac] 40 mg PO BID 12/14/13 01/29/19 History Omeprazole [PriLOSEC] 40 mg PO BID 09/21/14 01/29/19 History Baclofen 10 mg PO Q8H PRN 01/04/16 01/29/19 History QUEtiapine [SEROquel] 100 mg PO HS 01/04/16 01/29/19 History Fluticasone/Vilanterol [Breo 1 puff INHALATION RT-DAILY 05/15/18 01/29/19 History Ellipta 200-25 Mcg INH] Ibuprofen [Motrin] 800 mg PO Q8H PRN 05/15/18 01/29/19 History Ipratropium-Albuterol Nebulize 3 ml INHALATION RT-QID PRN 05/15/18 01/29/19 History [Duoneb 0.5 mg-3 mg/3 ml Soln] Ranitidine HCl 150 mg PO BID 05/15/18 01/29/19 History Furosemide [Lasix] 20 mg PO DAILY PRN 10/30/18 01/29/19 History Pravastatin Sodium [Pravachol] 20 mg PO HS 01/01/19 01/29/19 History Allergies Allergy/AdvReac Type Severity Reaction Status Date / Time adhesive tape AdvReac Skin Verified 01/29/19 09:50 Tearing morphine AdvReac Confusion Verified 01/29/19 09:50 Physical Exam Vitals: Vital Signs Temp Pulse Resp BP Pulse Ox 01/29/19 14:03 90 01/29/19 13:55 88 01/29/19 13:13 74 01/29/19 13:06 76 01/29/19 12:30 74 18 124/75 01/29/19 12:00 73 18 128/79 01/29/19 11:30 71 18 131/78 01/29/19 11:00 18 134/88 01/29/19 10:30 67 17 122/75 01/29/19 10:29 68 01/29/19 10:21 68 01/29/19 10:00 123/86 98 01/29/19 09:30 136/82 97 01/29/19 09:16 98.3 F 69 18 127/77 97 Intake and Output 01/29/19 01/29/19 01/29/19 06:59 14:59 22:59 Other: Weight 92.986 kg Gen. appearance, comfortable likely distress Head exam was generally normal. There was no scleral icterus or corneal arcus. Mucous membranes were moist. Neck was supple and without jugular venous distension, thyromegaly, or carotid bruits. Carotids were easily palpable bilaterally. There was no adenopathy. Lungs are diminished bilaterally along with some few scattered expiratory wheezes and crackles in lung bases. Cardiac exam revealed the PMI to be normally situated and sized. The rhythm was regular and no extrasystoles were noted during several minutes of auscultation. The first and second heart sounds were normal and physiologic splitting of the second heart sound was noted. There were no murmurs, rubs, clicks, or gallops. Abdominal exam revealed normal bowel sounds. The abdomen was soft, non-tender, and without masses, organomegaly, or appreciable enlargement of the abdominal aorta. Examination of the extremities revealed easily palpable radial, femoral and pedal pulses. There was no cyanosis, clubbing or edema. Examination of the skin revealed no evidence of significant rashes, suspicious appearing nevi or other concerning lesions. Neurologically the patient is awake and alert and there is no focal neurological deficits. Results - Laboratory Findings CBC and BMP: 01/29/19 09:38 01/29/19 09:38 PT/INR, D-dimer PT 9.5 sec (9.0-12.0) 01/29/19 09:38 INR 0.9 (<1.2) 01/29/19 09:38 Abnormal lab findings: Abnormal Labs 01/29/19 01/29/19 01/29/19 09:38 09:38 09:38 WBC 3.7 L MCHC 30.9 L Lymphocytes # 0.9 L APTT 21.0 L Chloride 109 H BUN 24 H - Diagnostic Findings Chest x-ray: image reviewed Assessment and Plan Plan: 1 left lower lobe pneumonia with secondary shortness of breath and exacerbation of chronic COPD/asthma 2 COPD/asthma. Patient is mainly consistent with moderate persistent asthma than COPD as the patient is a lifetime nonsmoker 3 obstructive sleep apnea nontolerant to CPAP therapy 4 history of gastric bypass surgery 4 previous history of GI bleed 54 mm pulmonary nodule in the right upper lobe monitored on outpatient basis 6 history of esophageal stricture with previous dilatation 7 severe GERD 8 previous history of psychiatric disorders including anxiety and depression and PTSD 9 dementia 10 nephrolithiasis 11 hyperlipidemia 12 questionable history of coronary artery disease with previous [place] 13 history of skin cancer Plan Agree on the current antibiotic treatment. Continue Solu-Medrol. Continue bronchodilators. We'll follow.
[2019-01-29] MEDS: ALPRAZolam 1 MG TAB PO PRN (16:43)
[2019-01-29] MEDS: PANTOPRAZOLE 40 MG TABLET PO SCH (16:47)
[2019-01-29] MEDS: methylPREDNISolone SOD SUCCI 125 MG/2 ML VIAL IV SCH (18:02)
[2019-01-29 19:58] LABS: Glucose,Whole Blood 245 mg/dL (75-99)
[2019-01-29] MEDS: INSULIN ASPART (NovoLOG) 100 UNIT/ML VIAL SQ SCH (20:47)
[2019-01-29] MEDS: FLUoxetine HCL 20 MG CAP PO SCH (20:47)
[2019-01-29] MEDS: PRAVASTATIN SODIUM 20 MG TAB PO SCH (20:47)
[2019-01-29] MEDS: FAMOTIDINE 20 MG TAB PO SCH (20:47)
--- NOTE | 2019-01-29 22:06 | P.HPIM ---
History of Present Illness H&P Date: 01/29/19 Chief Complaint: Shortness of breath Patient is a 63-year-old female with a known history of COPD, fibromyalgia, GERD, mild dementia and right upper lobe lung mass on follow-up with pulmonary presents to ER with complaints of shortness of breath. Patient has been in the ER with her daughter for the past 24 hours and she started getting shortness of breath. Patient usually states that she'll go down rather very quickly. Due to that reason patient called her information assurance specialist and was recommended to go to ER. Patient otherwise denied any complaints of fever or chills. No cough or sputum production. No chest pain. No nausea vomiting or abdominal pain or diarrhea. No dysuria or hematuria. Chest x-ray showed new left basilar infiltrate and/or atelectasis. EKG showed normal sinus rhythm. WBC 3.7, proBNP 108 Review of Systems Constitutional: Patient denies any fever or chills . No generalized weakness or weight loss. Abdomen: Patient denied nausea vomiting and diarrhea and abdominal pain. Cardiovascular: Patient denies any chest pain or short of breath no palpitations. Respiratory: Patient denied any cough is from production. Does have shortness of breath Neurologic: Patient denied any numbness or tingling headache. Musculoskeletal: Patient denies any complaints of joint swelling or deformity. Skin: Negative Psychiatric: Negative Endocrine: No heat or cold intolerance. No recent weight gain. Genitourinary: No dysuria or hematuria. All other 14 point ROS negative except the above Past Medical History Past Medical History: Asthma, Cancer, Heart Failure, COPD, Dementia, Fibromyalgia, GERD/Reflux, GI Bleed, Hyperlipidemia, Memory Impairment, Myocardi al Infarction ([place]), Osteoarthritis (OA), Pneumonia, Sleep Apnea/CPAP/BIPAP Additional Past Medical History / Comment(s): Recurrent pneumonia/sepsis, R upper lung suspicious nodule-being monitored-was to have repeat cat scan 01/30/19, skin cancer with removals, pt states she had a [place] in 2016 but cannot recall how it was diagnosed-no cath, hypotension, "shock" dementia d/t of daughter, esophageal strictures with ballooning, diverticular disease, anemia, arthritis in back/hips/knees, RLS, kidney stones which she has passed and had surgically removed, sinus problems, LORIE-stopped wearing device d/t intolerance, recent trauma to R foot toes. Last Myocardial Infarction Date:: 2015 History of Any Multi-Drug Resistant Organisms: None Reported Past Surgical History: Adenoidectomy, Appendectomy, Breast Surgery, Hernia Repair, Hysterectomy, Tonsillectomy Additional Past Surgical History / Comment(s): R breast lumpectomies x 2 (benign), 3 umbilical hernia repairs, lithotripsies, stomach bypass/bowel resection 2ndary to GI bleed, L chao benign tumor, multiple skin bx/skin cancer removals, EGD/dilations and colonoscopies. Past Anesthesia/Blood Transfusion Reactions: Previous Problems w/ Anesthesia Additional Past Anesthesia/Blood Transfusion Reaction / Comment(s): bp dips low Smoking Status: Never smoker - Past Family History Brother(s) Family Medical History: Cancer Sister(s) Family Medical History: Cancer Father Family Medical History: Cancer Additional Family Medical History / Comment(s): Father had lung cancer. Mother Family Medical History: Cancer Additional Family Medical History / Comment(s): Mother had pancreatic cancer. Medications and Allergies Home Medications Medication Instructions Recorded Confirmed Type ALPRAZolam [Xanax] 2 mg PO TID 12/14/13 01/29/19 History Dextroamphetamine/Amphetamine 20 mg PO BID 12/14/13 01/29/19 History [Adderall] FLUoxetine HCL [PROzac] 40 mg PO BID 12/14/13 01/29/19 History Omeprazole [PriLOSEC] 40 mg PO BID 09/21/14 01/29/19 History Baclofen 10 mg PO Q8H PRN 01/04/16 01/29/19 History QUEtiapine [SEROquel] 100 mg PO HS 01/04/16 01/29/19 History Fluticasone/Vilanterol [Breo 1 puff INHALATION RT-DAILY 05/15/18 01/29/19 History Ellipta 200-25 Mcg INH] Ibuprofen [Motrin] 800 mg PO Q8H PRN 05/15/18 01/29/19 History Ipratropium-Albuterol Nebulize 3 ml INHALATION RT-QID PRN 05/15/18 01/29/19 History [Duoneb 0.5 mg-3 mg/3 ml Soln] Ranitidine HCl 150 mg PO BID 05/15/18 01/29/19 History Furosemide [Lasix] 20 mg PO DAILY PRN 10/30/18 01/29/19 History Pravastatin Sodium [Pravachol] 20 mg PO HS 01/01/19 01/29/19 History Allergies Allergy/AdvReac Type Severity Reaction Status Date / Time adhesive tape AdvReac Skin Verified 01/29/19 09:50 Tearing morphine AdvReac Confusion Verified 01/29/19 09:50 Physical Exam Vitals: Vital Signs Temp Pulse Resp BP Pulse Ox 01/29/19 14:03 90 01/29/19 13:55 88 01/29/19 13:13 74 01/29/19 13:06 76 01/29/19 12:30 74 18 124/75 01/29/19 12:00 73 18 128/79 01/29/19 11:30 71 18 131/78 01/29/19 11:00 18 134/88 01/29/19 10:30 67 17 122/75 01/29/19 10:29 68 01/29/19 10:21 68 01/29/19 10:00 123/86 98 01/29/19 09:30 136/82 97 01/29/19 09:16 98.3 F 69 18 127/77 97 Intake and Output 01/29/19 01/29/19 01/29/19 06:59 14:59 22:59 Other: Weight 92.986 kg PHYSICAL EXAMINATION: Patient is lying in the bed comfortably, no acute distress, awake alert and oriented. Anxious. HEENT: Normocephalic. Neck is supple. Pupils reactive. Nostrils clear. Oral cavity is moist. Ears reveal no drainage. Neck reveals no JVD, carotid bruits, or thyromegaly. CHEST EXAMINATION: Trachea is central. Symmetrical expansion. Lung vaughn clear to auscultation and percussion. CARDIAC: Normal S1, S2 with no gallops. No murmurs ABDOMEN: Soft. Bowel sounds normal. No organomegaly. No abdominal bruits. Extremities: reveal no edema. No clubbing or cyanosis Neurologically awake, alert, oriented x3 with well-coordinated movements. No focal deficits noted Skin: No rash or skin lesions. Psychiatric: Coperative. Nonsuicidal Musculoskeletal: No joint swelling or deformity. Normal range of motion. Results CBC & Chem 7: 01/29/19 09:38 01/29/19 09:38 Labs: Abnormal Lab Results - Last 24 Hours (Table) 01/29/19 01/29/19 01/29/19 Range/Units 09:38 09:38 09:38 WBC 3.7 L (3.8-10.6) k/uL MCHC 30.9 L (31.0-37.0) g/dL Lymphocytes # 0.9 L (1.0-4.8) k/uL APTT 21.0 L (22.0-30.0) sec Chloride 109 H (98-107) mmol/L BUN 24 H (7-17) mg/dL Thrombosis Risk Factor Assmnt - Choose All That Apply Any of the Below Risk Factors Present?: Yes Each Factor Represents 1 point: Abnormal pulmonary function (COPD), Obesity (BMI >25), Serious lung disease incl. pneumonia (< 1month) Other Risk Factors: Yes Each Risk Factor Represents 2 Points: Age 61-74 years, Malignancy Other congenital or acquired thrombophilia - If yes, enter type in comment: No Thrombosis Risk Factor Assessment Total Risk Factor Score: 7 Thrombosis Risk Factor Assessment Level: High Risk Assessment and Plan Assessment: Shortness of breath secondary to COPD and pneumonia Acute Left lower lobe pneumonia Acute COPD exacerbation Fibromyalgia Hyperlipidemia Recurrent pneumonias Right upper lobe spiculated nodule currently being monitored by pulmonary as an outpatient. Diverticular disease Osteoarthritis History of nephrolithiasis Obstructive sleep apnea. Intolerant to CPAP at home History of skin cancer removal History of gastric bypass and also bowel resection due to GI bleed Anxiety and PTSD DVT prophylaxis Plan: Patient will be continued on antibiotic the form of ceftriaxone and azithromycin. Continue with DuoNeb's and IV steroids. Follow-up culture reports. Continue with home medications and further recommendations based on the clinical course. Pulmonary is on board. Time with Patient: Greater than 30
[2019-01-29] MEDS: Dextroamphetamine/Amphetamine [Adderall] PO SCH (22:10)
[2019-01-29] MEDS: BUTALB/APAP/CAFF 50-325-40MG TAB PO PRN (22:48)
[2019-01-29] MEDS: QUEtiapine 100 MG TAB PO SCH (22:48)
[2019-01-30] MEDS: methylPREDNISolone SOD SUCCI 125 MG/2 ML VIAL IV SCH ×5 (01:03→23:12)
[2019-01-30] MEDS: IPRATROPIUM-ALBUTEROL 3 ML NEB INHALATION SCH ×6 (02:20→23:35)
[2019-01-30 07:19] LABS: Glucose,Whole Blood 145 mg/dL (75-99)
[2019-01-30] MEDS: SODIUM CHLORIDE 0.9% 1,000 ML IV SCH ×2 (08:07→08:17)
[2019-01-30] MEDS: ALPRAZolam 1 MG TAB PO PRN ×2 (08:15→21:01)
[2019-01-30] MEDS: FLUoxetine HCL 20 MG CAP PO SCH ×2 (08:15→21:24)
[2019-01-30] MEDS: FAMOTIDINE 20 MG TAB PO SCH ×2 (08:16→20:59)
[2019-01-30] MEDS: PANTOPRAZOLE 40 MG TABLET PO SCH ×2 (08:16→18:20)
[2019-01-30] MEDS: Dextroamphetamine/Amphetamine [Adderall] PO SCH ×2 (08:16→21:05)
[2019-01-30] MEDS: AZITHROMYCIN 500 MG TAB PO SCH (08:23)
[2019-01-30] MEDS: INSULIN ASPART (NovoLOG) 100 UNIT/ML VIAL SQ SCH ×4 (08:23→21:01)
[2019-01-30] MEDS: BUTALB/APAP/CAFF 50-325-40MG TAB PO PRN ×3 (08:27→23:11)
[2019-01-30 11:44] LABS: Glucose,Whole Blood 157 mg/dL (75-99)
--- NOTE | 2019-01-30 12:53 | XR ---
EXAMINATION TYPE: XR chest 2V DATE OF EXAM: 01/30/2019 COMPARISON: Prior chest x-ray 01/29/2019 and chest x-ray 08/09/2018, chest CT 09/13/2018 HISTORY: Pneumonia TECHNIQUE: Frontal and lateral views of the chest are obtained. FINDINGS: Minimal patchy density present at the left lung base, left hemidiaphragm mildly elevated. No pneumothorax or pleural effusion. Heart size is within normal limits. Multilevel thoracic spondylo sis is stable. There are overlying cardiac leads. IMPRESSION: Left lower lobe subsegmental atelectasis or scarring is suspected.
--- NOTE | 2019-01-30 13:59 | P.PN ---
Subjective Progress Note Date: 01/30/19 Principal diagnosis: Left lower lobe pneumonia with secondary shortness of breath and exacerbation of chronic COPD/asthma This is a 63-year-old female patient with known history of COPD/asthma who is been maintained on a combination of Breo Ellipta and Singulair on outpatient [facility]. The patient came into the hospital around 3 days ago as her daughter is been suffering from recurrent seizures. As such the patient has been spending most of her time in the hospital taking care of her daughter who is currently admitted to the hospital. During this time as the patient is having increased cough and congestion increased shortness of breath. She was feeling feverish yet there is no documented temperature. She was feeling nauseated. She was also having sweats. No emesis. No diarrhea. No chest pain. No hemoptysis. No pleurisy. She has a previous bouts of pneumonias according to her pH has been followed up in our office regarding her chronic lung disease. She has home oxygen yet she has been using it on a regular basis. She is not smoking for now. In the ED, the patient a chest x-ray and she was diagnosed having a left lower lobe pneumonia and the patient was started on a combination of Rocephin and Zithromax. She was also started on IV Solu-Medrol and DuoNeb nebulized treatments around the clock. The patient's white cell count is at 3.7. Rest of the blood work and electrodes are all within normal limits. On 01/30/2019 patient seen in follow-up on medical surgical floor. Patient is doing better, breathing easier, currently on room air, with pulse ox is 95%, no fever or chills, hemodynamically stable, lung sounds are positive for some coarse rhonchi, overall improving congestion, will need on the 24 hours of inpatient treatment, no sputum culture was sent, follow-up chest x-ray shows left lower lobe subsegmental atelectasis versus infiltrate. Objective - Vital Signs Vital signs: Vital Signs Temp 98.4 F 01/30/19 12:19 Pulse 86 01/30/19 12:19 Resp 17 01/30/19 12:19 BP 105/63 01/30/19 12:19 Pulse Ox 95 01/30/19 12:19 Intake & Output 01/29/19 01/30/19 01/30/19 18:59 06:59 18:59 Intake Total 590 Balance 590 Weight 92.986 kg Intake: Oral 590 Other: Voiding Method Toilet Toilet Toilet # Voids 3 - Exam GENERAL EXAM: Alert, pleasant, 63-year-old white female, on room air, with pulse ox of 95% comfortable in no apparent distress. HEAD: Normocephalic/atraumatic. EYES: Normal reaction of pupils, equal size. Conjunctiva pink, sclera white. NOSE: Clear with pink turbinates. THROAT: No erythema or exudates. NECK: No masses, no JVD, no thyroid enlargement, no adenopathy. CHEST: No chest wall deformity. Symmetrical expansion. LUNGS: Equal air entry with coarse lung sounds, some limited rhonchi at the bases CVS: Regular rate and rhythm, normal S1 and S2, no gallops, no murmurs, no rubs ABDOMEN: Soft, nontender. No hepatosplenomegaly, normal bowel sounds, no gu arding or rigidity. EXTREMITIES: No clubbing, no edema, no cyanosis, 2+ pulses and upper and lower e xtremities. MUSCULOSKELETAL: Muscle strength and tone normal. SPINE: No scoliosis or deformity SKIN: No rashes CENTRAL NERVOUS SYSTEM: Alert and oriented -3. No focal deficits, tone is normal in all 4 extremities. PSYCHIATRIC: Alert and oriented -3. Appropriate affect. Intact judgment and insight. - Labs CBC & Chem 7: 01/29/19 09:38 01/29/19 09:38 Labs: Abnormal Lab Results - Last 24 Hours (Table) 01/29/19 01/30/19 01/30/19 Range/Units 19:57 07:12 11:27 POC Glucose (mg/dL) 245 H 145 H 157 H (75-99) mg/dL Assessment and Plan Plan: Assessment: 1 left lower lobe pneumonia with secondary shortness of breath and exacerbation of chronic COPD/asthma 2 COPD/asthma. Patient is mainly consistent with moderate persistent asthma than COPD as the patient is a lifetime nonsmoker 3 obstructive sleep apnea nontolerant to CPAP therapy 4 history of gastric bypass surgery 4 previous history of GI bleed 54 mm pulmonary nodule in the right upper lobe monitored on outpatient basis 6 history of esophageal stricture with previous dilatation 7 severe GERD 8 previous history of psychiatric disorders including anxiety and depression and PTSD 9 dementia 10 nephrolithiasis 11 hyperlipidemia 12 questionable history of coronary artery disease with previous HI 13 history of skin cancer Plan: Patient is improving, breathing easier, she is on room air, no fever or chills, today's chest x-ray shows improvement in the appearance of left basilar infiltrate/atelectasis, increase activity as tolerated. Continue current antibiotic coverage, will probably need another 24 hours of inpatient treatment, possible discharge tomorrow as long as she continues to improve I performed a history & physical examination of the patient and discussed their management with my nurse practitioner, Ruth Ann Soto. I reviewed the nurse practitioner's note and agree with the documented findings and plan of care. Lung sounds are positive for a few coarse rhonchi. The findings and the impression was discussed with the patient. I attest to the documentation by the nurse practitioner. Time with Patient: Less than 30
[2019-01-30 17:14] LABS: Glucose,Whole Blood 132 mg/dL (75-99)
[2019-01-30 19:52] LABS: Glucose,Whole Blood 184 mg/dL (75-99)
[2019-01-30] MEDS: PRAVASTATIN SODIUM 20 MG TAB PO SCH (21:00)
[2019-01-30] MEDS ORDERED: MONTELUKAST 10 MG TAB PO SCH (21:00)
[2019-01-30] MEDS: QUEtiapine 100 MG TAB PO SCH (21:01)
--- NOTE | 2019-01-30 23:43 | P.PN ---
Subjective Progress Note Date: 01/30/19 Principal diagnosis: Left lower lobe pneumonia Patient is a 63-year-old female with a known history of COPD, fibromyalgia, GERD, mild dementia and right upper lobe lung mass on follow-up with pulmonary presents to ER with complaints of shortness of breath. Patient has been in the ER with her daughter for the past 24 hours and she started getting shortness of breath. Patient usually states that she'll go down rather very quickly. Due to that reason patient called her typing office worker and was recommended to go to ER. Patient otherwise denied any complaints of fever or chills. No cough or sputum production. No chest pain. No nausea vomiting or abdominal pain or diarrhea. No dysuria or hematuria. Chest x-ray showed new left basilar infiltrate and/or atelectasis. EKG showed normal sinus rhythm. WBC 3.7, proBNP 108 01/30/2019 Patient says that her breathing is better today. Not at baseline. Saturating well on room air. No fever no chills. No nausea vomiting or abdominal pain. Repeat chest x-ray showed left lower lobe subsegmental atelectasis versus infiltrate. Pulmonary is following. Continued on antibiotics. Anticipate discharge in next 24 hours. Current medications reviewed. Objective - Vital Signs Vital signs: Vital Signs Temp 98.4 F 01/30/19 12:19 Pulse 86 01/30/19 12:19 Resp 17 01/30/19 12:19 BP 105/63 01/30/19 12:19 Pulse Ox 98 01/30/19 13:15 Intake & Output 01/29/19 01/30/19 01/30/19 18:59 06:59 18:59 Intake Total 590 580 Balance 590 580 Weight 92.986 kg Intake: Oral 590 580 Other: Voiding Method Toilet Toilet Toilet # Voids 3 1 - Exam PHYSICAL EXAMINATION: Patient is lying in the bed comfortably, no acute distress, awake alert and oriented.. HEENT: Normocephalic. Neck is supple. Pupils reactive. Nostrils clear. Oral cavity is moist. Ears reveal no drainage. Neck reveals no JVD, carotid bruits, or thyromegaly. CHEST EXAMINATION: Trachea is central. Symmetrical expansion. Minimal Basilar coarse sounds. Lung vaughn clear to auscultation and percussion. CARDIAC: Normal S1, S2 with no gallops. No murmurs ABDOMEN: Soft. Bowel sounds normal. No organomegaly. No abdominal bruits. Extremities: reveal no edema. No clubbing or cyanosis Neurologically awake, alert, oriented x3 with well-coordinated movements. No focal deficits noted Skin: No rash or skin lesions. Psychiatric: Coperative. Nonsuicidal. Anxious Musculoskeletal: No joint swelling or deformity. Normal range of motion. - Labs CBC & Chem 7: 01/29/19 09:38 01/29/19 09:38 Labs: Abnormal Lab Results - Last 24 Hours (Table) 01/29/19 01/30/19 01/30/19 Range/Units 19:57 07:12 11:27 POC Glucose (mg/dL) 245 H 145 H 157 H (75-99) mg/dL Microbiology - Last 24 Hours (Table) 01/29/19 12:20 Blood Culture - Preliminary Blood No Growth after 24 hours Assessment and Plan Assessment: Shortness of breath secondary to COPD and pneumonia Acute Left lower lobe pneumonia Acute COPD exacerbation Fibromyalgia Hyperlipidemia Recurrent pneumonias Right upper lobe spiculated nodule currently being monitored by pulmonary as an outpatient. Diverticular disease Osteoarthritis History of nephrolithiasis Obstructive sleep apnea. Intolerant to CPAP at home History of skin cancer removal History of gastric bypass and also bowel resection due to GI bleed Anxiety and PTSD DVT prophylaxis Plan: Patient will be continued on antibiotic the form of ceftriaxone and azithromycin. Continue with DuoNeb's and IV steroids. Follow-up culture reports. Continue with home medications and further recommendations based on the clinical course. Discussed with the patient in detail at bedside. Pulmonary is on board. Time with Patient: Greater than 30
[2019-01-31] MEDS: IPRATROPIUM-ALBUTEROL 3 ML NEB INHALATION SCH ×4 (04:11→16:01)
[2019-01-31] MEDS: methylPREDNISolone SOD SUCCI 125 MG/2 ML VIAL IV SCH ×2 (05:46→13:46)
[2019-01-31] MEDS: ALPRAZolam 1 MG TAB PO PRN ×2 (06:04→14:03)
[2019-01-31 07:13] LABS: Glucose,Whole Blood 143 mg/dL (75-99)
[2019-01-31] MEDS: FLUoxetine HCL 20 MG CAP PO SCH (08:13)
[2019-01-31] MEDS: BUTALB/APAP/CAFF 50-325-40MG TAB PO PRN (08:13)
[2019-01-31] MEDS: PANTOPRAZOLE 40 MG TABLET PO SCH (08:14)
[2019-01-31] MEDS: AZITHROMYCIN 500 MG TAB PO SCH (08:14)
[2019-01-31] MEDS: FAMOTIDINE 20 MG TAB PO SCH (08:14)
[2019-01-31] MEDS: INSULIN ASPART (NovoLOG) 100 UNIT/ML VIAL SQ SCH ×2 (08:15→12:44)
[2019-01-31] MEDS: SODIUM CHLORIDE 0.9% 1,000 ML IV SCH (08:16)
[2019-01-31] MEDS: Dextroamphetamine/Amphetamine [Adderall] PO SCH (08:22)
[2019-01-31 10:35] VITALS: RESP 17
[2019-01-31 11:21] LABS: Glucose,Whole Blood 108 mg/dL (75-99)
[2019-01-31 12:22] VITALS: BP 115/70; PULSE 71; TEMP 98.3
--- NOTE | 2019-01-31 14:57 | P.PN ---
Subjective Progress Note Date: 01/31/19 Principal diagnosis: Left lower lobe pneumonia with secondary shortness of breath and exacerbation of chronic COPD/asthma This is a 63-year-old female patient with known history of COPD/asthma who is been maintained on a combination of Breo Ellipta and Singulair on outpatient [facility]. The patient came into the hospital around 3 days ago as her daughter is been suffering from recurrent seizures. As such the patient has been spending most of her time in the hospital taking care of her daughter who is currently admitted to the hospital. During this time as the patient is having increased cough and congestion increased shortness of breath. She was feeling feverish yet there is no documented temperature. She was feeling nauseated. She was also having sweats. No emesis. No diarrhea. No chest pain. No hemoptysis. No pleurisy. She has a previous bouts of pneumonias according to her pH has been followed up in our office regarding her chronic lung disease. She has home oxygen yet she has been using it on a regular basis. She is not smoking for now. In the ED, the patient a chest x-ray and she was diagnosed having a left lower lobe pneumonia and the patient was started on a combination of Rocephin and Zithromax. She was also started on IV Solu-Medrol and DuoNeb nebulized treatments around the clock. The patient's white cell count is at 3.7. Rest of the blood work and electrodes are all within normal limits. On 01/30/2019 patient seen in follow-up on medical surgical floor. Patient is doing better, breathing easier, currently on room air, with pulse ox is 95%, no fever or chills, hemodynamically stable, lung sounds are positive for some coarse rhonchi, overall improving congestion, will need on the 24 hours of inpatient treatment, no sputum culture was sent, follow-up chest x-ray shows left lower lobe subsegmental atelectasis versus infiltrate. On 01/31/2019 patient seen in follow-up on medical surgical floor. Clinically stable, currently she had a few episodes of chest pain, which she states was similar to her esophageal spasm, patient does have some esophageal strictures that required dilation in the past. EKG did not show any changes according to the nurse, troponin has been ordered and is negative. Her chest pain resolved spontaneously, from pulmonary perspective she stable, she denies any shortness of breath, room air pulse ox is 93-97%, she is afebrile, lung sounds are clear, blood culture showed no growth, no fever or chills, patient has been treated with a combination of Rocephin and Zithromax, clinically improving. Patient can be considered for discharge home today, she is inquiring about pulmonary nodule that is being followed in outpatient basis by Dr. Gar, patient had a CAT scan of the chest set up for yesterday however she missed her appointment, this will be followed up on outpatient basis. Objective - Vital Signs Vital signs: Vital Signs Temp 98.3 F 01/31/19 11:58 Pulse 71 01/31/19 11:58 Resp 17 01/31/19 11:58 BP 115/70 01/31/19 11:58 Pulse Ox 93 L 01/31/19 11:58 Intake & Output 01/30/19 01/31/19 01/31/19 18:59 06:59 18:59 Intake Total 580 980 Balance 580 980 Intake: Oral 580 980 Other: Voiding Method Toilet Toilet Toilet # Voids 1 3 - Exam GENERAL EXAM: Alert, pleasant, 63-year-old white female, on room air, with pulse ox of 95% comfortable in no apparent distress. HEAD: Normocephalic/atraumatic. EYES: Normal reaction of pupils, equal size. Conjunctiva pink, sclera white. NOSE: Clear with pink turbinates. THROAT: No erythema or exudates. NECK: No masses, no JVD, no thyroid enlargement, no adenopathy. CHEST: No chest wall deformity. Symmetrical expansion. LUNGS: Equal air entry with coarse lung sounds, some limited rhonchi at the bases CVS: Regular rate and rhythm, normal S1 and S2, no gallops, no murmurs, no rubs ABDOMEN: Soft, nontender. No hepatosplenomegaly, normal bowel sounds, no guarding or rigidity. EXTREMITIES: No clubbing, no edema, no cyanosis, 2+ pulses and upper and lower extremities. MUSCULOSKELETAL: Muscle strength and tone normal. SPINE: No scoliosis or deformity SKIN: No rashes CENTRAL NERVOUS SYSTEM: Alert and oriented -3. No focal deficits, tone is normal in all 4 extremities. PSYCHIATRIC: Alert and oriented -3. Appropriate affect. Intact judgment and insight. - Labs CBC & Chem 7: 01/29/19 09:38 01/29/19 09:38 Labs: Abnormal Lab Results - Last 24 Hours (Table) 01/30/19 01/30/19 01/31/19 Range/Units 17:12 19:50 07:12 POC Glucose (mg/dL) 132 H 184 H 143 H (75-99) mg/dL 01/31/19 Range/Units 11:19 POC Glucose (mg/dL) 108 H (75-99) mg/dL Microbiology - Last 24 Hours (Table) 01/29/19 12:20 Blood Culture - Preliminary Blood No Growth after 48 hours Assessment and Plan Plan: Assessment: 1 left lower lobe pneumonia with secondary shortness of breath and exacerbation of chronic COPD/asthma 2 COPD/asthma. Patient is mainly consistent with moderate persistent asthma than COPD as the patient is a lifetime nonsmoker 3 obstructive sleep apnea nontolerant to CPAP therapy 4 history of gastric bypass surgery 4 previous history of GI bleed 54 mm pulmonary nodule in the right upper lobe monitored on outpatient basis 6 history of esophageal stricture with previous dilatation 7 severe GERD 8 previous history of psychiatric disorders including anxiety and depression and PTSD 9 dementia 10 nephrolithiasis 11 hyperlipidemia 12 questionable history of coronary artery disease with previous SC 13 history of skin cancer Plan: Patient is doing well, no shortness of breath, no fever or chills, no significant cough or phlegm production, she stable for discharge home today on outpatient course of oral Ceftin, she will need to see Dr. Gar in follow-up. In the upcoming appointment for a follow-up CAT scan of the chest will probably be rescheduled once she is completely recovered from this episode of left lower lobe pneumonia. I performed a history & physical examination of the patient and discussed their management with my nurse practitioner, Ruth Ann Soto. I reviewed the nurse practitioner's note and agree with the documented findings and plan of care. Lung sounds are positive for a few coarse rhonchi. The findings and the impression was discussed with the patient. I attest to the documentation by the nurse practitioner. Time with Patient: Less than 30
== END 2019-01-31 17:04 | disposition home or self-care (01) | DRG 193 ==
LOC: EC 09:14 → 3NMEDONC 13:15
PROVIDERS: ADMIT Internal Medicine; ATTEND Internal Medicine
DX: J18.9 Pneumonia, unspecified organism (principal); J80 Acute respiratory distress syndrome; J44.0 Chronic obstructive pulmonary disease with (acute) lower respiratory infection; J44.1 Chronic obstructive pulmonary disease with (acute) exacerbation; J45.41 Moderate persistent asthma with (acute) exacerbation; E78.5 Hyperlipidemia, unspecified; F03.90 Unspecified dementia, unspecified severity, without behavioral disturbance, psychotic disturbance, mood disturbance, and anxiety; F43.10 Post-traumatic stress disorder, unspecified; G25.81 Restless legs syndrome; G47.33 Obstructive sleep apnea (adult) (pediatric); I25.2 Old myocardial infarction; I50.9 Heart failure, unspecified; K21.9 Gastro-esophageal reflux disease without esophagitis; K22.4 Dyskinesia of esophagus; K57.90 Diverticulosis of intestine, part unspecified, without perforation or abscess without bleeding; M47.9 Spondylosis, unspecified; M16.0 Bilateral primary osteoarthritis of hip; M17.0 Bilateral primary osteoarthritis of knee; M79.7 Fibromyalgia; N20.0 Calculus of kidney; Z79.899 Other long term (current) drug therapy; Z80.0 Family history of malignant neoplasm of digestive organs; Z80.1 Family history of malignant neoplasm of trachea, bronchus and lung; Z85.828 Personal history of other malignant neoplasm of skin; Z87.01 Personal history of pneumonia (recurrent); Z87.442 Personal history of urinary calculi; Z90.710 Acquired absence of both cervix and uterus; Z98.84 Bariatric surgery status; Z99.81 Dependence on supplemental oxygen; R91.1 Solitary pulmonary nodule; Z90.49 Acquired absence of other specified parts of digestive tract; Z80.3 Family history of malignant neoplasm of breast; I25.10 Atherosclerotic heart disease of native coronary artery without angina pectoris; Z88.5 Allergy status to narcotic agent
CPT/HCPCS: 36415; 71046; 80053; 83735; 83880; 84484; 85025; 85610; 85730; 87040; 93005; 94640; 96361; 96365; 96375; 99291

== ENCOUNTER 2019-02-02 14:37 | Inpatient (IN) | payer MEDICARE, OTHER ==
[2019-02-02] MEDS ORDERED: IBUPROFEN 600 MG TAB PO STA (15:12)
[2019-02-02] MEDS ORDERED: IPRATROPIUM-ALBUTEROL 3 ML NEB INHALATION STA (15:14)
--- NOTE | 2019-02-02 15:31 | ED ---
Fever HPI - General Source: patient, RN notes reviewed, old records reviewed Mode of arrival: ambulatory Limitations: no limitations <Do Dickey - Last Filed: 02/02/19 17:42> <Delon Bailey - Last Filed: 02/02/19 17:48> - General Chief Complaint: Fever Stated Complaint: Fever Time Seen by Provider: 02/02/19 14:51 - History of Present Illness Initial Comments: This Patient is a 63-year-old female who presents emergency department today for evaluation for increased weakness, and feeling generally unwell. She was recently discharged with diagnoses of pneumonia and COPD exacerbation. She reports that she gets sick very quickly. Patient states that she was discharged home, last night. She reports that yesterday she was just increasingly weak and continues to have fevers. She was sent home on oral Ceftin year and has been taking antibiotics, breathing treatments as prescribed. Patient reports she's been taking Tylenol [id number] for fever. Patient states that she felt that she needed to come return here for reevaluation. She does have a history of "malabsorption syndrome". She states that she does not receive oral antibiotics as well as she does IV. 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 (Do Dickey) - Related Data Home Medications Medication Instructions Recorded Confirmed ALPRAZolam [Xanax] 2 mg PO TID 12/14/13 01/29/19 Dextroamphetamine/Amphetamine 20 mg PO BID 12/14/13 01/29/19 [Adderall] FLUoxetine HCL [PROzac] 40 mg PO BID 12/14/13 01/29/19 Omeprazole [PriLOSEC] 40 mg PO BID 09/21/14 01/29/19 Baclofen 10 mg PO Q8H PRN 01/04/16 01/29/19 QUEtiapine [SEROquel] 100 mg PO HS 01/04/16 01/29/19 Fluticasone/Vilanterol [Breo 1 puff INHALATION RT-DAILY 05/15/18 01/29/19 Ellipta 200-25 Mcg INH] Ibuprofen [Motrin] 800 mg PO Q8H PRN 05/15/18 01/29/19 Ipratropium-Albuterol Nebulize 3 ml INHALATION RT-QID PRN 05/15/18 01/29/19 [Duoneb 0.5 mg-3 mg/3 ml Soln] Ranitidine HCl 150 mg PO BID 05/15/18 01/29/19 Furosemide [Lasix] 20 mg PO DAILY PRN 10/30/18 01/29/19 Pravastatin Sodium [Pravachol] 20 mg PO HS 01/01/19 01/29/19 Montelukast [Singulair] 10 mg PO HS 01/30/19 01/30/19 Previous Rx's Medication Instructions Recorded Cefuroxime Axetil [Ceftin] 500 mg PO BID 5 Days #10 tab 01/31/19 predniSONE 40 mg PO DAILY 4 Days tab 01/31/19 Allergies Allergy/AdvReac Type Severity Reaction Status Date / Time adhesive tape AdvReac Skin Verified 02/02/19 14:43 Tearing morphine AdvReac Confusion Verified 02/02/19 14:43 Review of Systems ROS Other: All systems not noted in ROS Statement are negative. <Do Dickey - Last Filed: 02/02/19 17:42> ROS Other: All systems not noted in ROS Statement are negative. <Delon Bailey - Last Filed: 02/02/19 17:48> ROS Statement: Those systems with pertinent positive or pertinent negative responses have been documented in the HPI. Past Medical History Past Medical History: Asthma, Cancer, Heart Failure, COPD, Dementia, Fibromyalgia, GERD/Reflux, GI Bleed, Hyperlipidemia, Memory Impairment, Myocardial Infarction (IN), Osteoarthritis (OA), Pneumonia, Sleep Apnea/CPAP/BIPAP Additional Past Medical History / Comment(s): Recurrent pneumonia/sepsis, R upper lung suspicious nodule-being monitored-was to have repeat cat scan 01/30/19, skin cancer with removals, pt states she had a IN in 2016 but cannot recall how it was diagnosed-no cath, hypotension, "shock" dementia d/t of daughter, esophageal strictures with ballooning, diverticular disease, anemia, arthritis in back/hips/knees, RLS, kidney stones which she has passed and had surgically removed, sinus problems, LORIE-stopped wearing device d/t intolerance, recent trauma to R foot toes. Last Myocardial Infarction Date:: 2015 History of Any Multi-Drug Resistant Organisms: None Reported Past Surgical History: Adenoidectomy, Appendectomy, Breast Surgery, Hernia Repair, Hysterectomy, Tonsillectomy Additional Past Surgical History / Comment(s): R breast lumpectomies x 2 (benign), 3 umbilical hernia repairs, lithotripsies, stomach bypass/bowel resection 2ndary to GI bleed, L chao benign tumor, multiple skin bx/skin cancer removals, EGD/dilations and colonoscopies. Past Anesthesia/Blood Transfusion Reactions: Previous Problems w/ Anesthesia Additional Past Anesthesia/Blood Transfusion Reaction / Comment(s): bp dips low Past Psychological History: Anxiety Smoking Status: Never smoker Past Alcohol Use History: None Reported Past Drug Use History: None Reported - Past Family History Brother(s) Family Medical History: Cancer Additional Family Medical History / Comment(s): Psychiatric history also runs in the patient's family. The patient's daughter has committed suicide. The patient's brother and sister and mother all of cancers. Apparently rest cancer and esophageal cancer and pancreatic cancer runs in family unable to give detailed history on that. Sister(s) Family Medical History: Cancer Father Family Medical History: Cancer Additional Family Medical History / Comment(s): Father had lung cancer. Mother Family Medical History: Cancer Additional Family Medical History / Comment(s): Mother had pancreatic cancer. <Do Dickey - Last Filed: 02/02/19 17:42> General Exam Limitations: no limitations General appearance: alert, in no apparent distress Head exam: Present: atraumatic, normocephalic, normal inspection Eye exam: Present: normal appearance, PERRL, EOMI. Absent: scleral icterus, conjunctival injection, periorbital swelling ENT exam: Present: normal exam, mucous membranes moist Neck exam: Present: normal inspection Respiratory exam: Present: rales (Rales bilaterally). Absent: normal lung sounds bilaterally, respiratory distress, wheezes, rhonchi, stridor Cardiovascular Exam: Present: regular rate, normal rhythm, normal heart sounds. Absent: systolic murmur, diastolic murmur, rubs, gallop, clicks GI/Abdominal exam: Present: soft, normal bowel sounds. Absent: distended, tenderness, guarding, rebound, rigid Extremities exam: Present: normal inspection Back exam: Present: normal inspection Neurological exam: Present: alert Psychiatric exam: Present: normal affect Skin exam: Present: warm, dry, intact, normal color. Absent: rash <Do Dickey - Last Filed: 02/02/19 17:42> - General Exam Comments Initial Comments: 63-year-old female. Alert and oriented. No distress. (Do Dickey) Course <Delon Bailey - Last Filed: 02/02/19 17:48> Vital Signs 02/02/19 02/02/19 02/02/19 14:40 15:30 16:00 Temperature 99.1 F Pulse Rate 83 71 70 Respiratory 18 13 Rate Blood Pressure 116/78 124/71 124/78 O2 Sat by Pulse 97 98 Oximetry 02/02/19 02/02/19 02/02/19 16:15 16:27 16:30 Temperature Pulse Rate 68 67 65 Respiratory 19 Rate Blood Pressure 127/76 O2 Sat by Pulse 97 Oximetry 02/02/19 02/02/19 02/02/19 16:53 17:00 17:13 Temperature 98.3 F Pulse Rate 62 Respiratory 21 22 19 Rate Blood Pressure 122/82 O2 Sat by Pulse 97 Oximetry 02/02/19 17:30 Temperature Pulse Rate 67 Respiratory 18 Rate Blood Pressure 114/69 O2 Sat by Pulse 97 Oximetry - Reevaluation(s) Reevaluation #1: 02/02/19 17:48 PA supervision: I personally evaluate this case and do agree with the assessment and plan. Dr. Barraza was contacted. Patient will be admitted. (Delon Bailey) Medical Decision Making - Lab Data Result diagrams: 02/02/19 15:39 02/02/19 15:39 - Radiology Data Radiology results: report reviewed <Do Dickey - Last Filed: 02/02/19 17:42> - Lab Data Result diagrams: 02/02/19 15:39 02/02/19 15:39 <Delon Bailey - Last Filed: 02/02/19 17:48> - Medical Decision Making This is a 63-year-old female complains of generalized weakness recent diagnosis of pneumonia and fever. She states she's had continued fevers despite Rocephin for pneumonia. Patient had some minor rales on exam does not appear in any respiratory distress. Vital signs are stable. She states that her lab work shows a normally a low white blood cell count of 1.8-3. Patient's white blood cell count is 6.6. Patient is concerned this is increased despite being on antibiotics. Patient's troponin and EKG are normal. Chest x-ray showed atelectasis versus early pneumonia. Patient was given 1 dose of Rocephin, will add antibiotics or HCAP. Discussed further antibiotic choice through inpatient management. She sees Dr. Salinas for pulmonology as well as Dr. Martinez for cardiology. She denies any significant chest pain at this time. Patient will be admitted for generalized weakness, failure of outpatient treatment. (Do Dickey) - Lab Data Lab Results 02/02/19 02/02/19 02/02/19 Range/Units 15:39 15:39 15:39 WBC 6.6 (3.8-10.6) k/uL RBC 3.90 (3.80-5.40) m/uL Hgb 10.8 L (11.4-16.0) gm/dL Hct 35.5 (34.0-46.0) % MCV 90.9 (80.0-100.0) fL MCH 27.8 (25.0-35.0) pg MCHC 30.6 L (31.0-37.0) g/dL RDW 14.1 (11.5-15.5) % Plt Count 230 (150-450) k/uL Neutrophils % 86 % Lymphocytes % 7 % Monocytes % 5 % Eosinophils % 1 % Basophils % 0 % Neutrophils # 5.7 (1.3-7.7) k/uL Lymphocytes # 0.5 L (1.0-4.8) k/uL Monocytes # 0.3 (0-1.0) k/uL Eosinophils # 0.1 (0-0.7) k/uL Basophils # 0.0 (0-0.2) k/uL PT (9.0-12.0) sec INR (<1.2) APTT (22.0-30.0) sec Sodium 140 (137-145) mmol/L Potassium 4.2 (3.5-5.1) mmol/L Chloride 109 H (98-107) mmol/L Carbon Dioxide 24 (22-30) mmol/L Anion Gap 7 mmol/L BUN 25 H (7-17) mg/dL Creatinine 0.61 (0.52-1.04) mg/dL Est GFR (CKD-EPI)AfAm >90 (>60 ml/min/1.73 sqM) Est GFR (CKD-EPI)NonAf >90 (>60 ml/min/1.73 sqM) Glucose 121 H (74-99) mg/dL Plasma Lactic Acid Abhijeet 1.7 (0.7-2.0) mmol/L Calcium 8.4 (8.4-10.2) mg/dL Total Bilirubin 0.3 (0.2-1.3) mg/dL AST 33 (14-36) U/L ALT 43 (9-52) U/L Alkaline Phosphatase 69 (38-126) U/L Troponin I (0.000-0.034) ng/mL NT-Pro-B Natriuret Pep pg/mL Total Protein 5.9 L (6.3-8.2) g/dL Albumin 3.4 L (3.5-5.0) g/dL 02/02/19 02/02/19 02/02/19 Range/Units 15:39 15:39 15:39 WBC (3.8-10.6) k/uL RBC (3.80-5.40) m/uL Hgb (11.4-16.0) gm/dL Hct (34.0-46.0) % MCV (80.0-100.0) fL MCH (25.0-35.0) pg MCHC (31.0-37.0) g/dL RDW (11.5-15.5) % Plt Count (150-450) k/uL Neutrophils % % Lymphocytes % % Monocytes % % Eosinophils % % Basophils % % Neutrophils # (1.3-7.7) k/uL Lymphocytes # (1.0-4.8) k/uL Monocytes # (0-1.0) k/uL Eosinophils # (0-0.7) k/uL Basophils # (0-0.2) k/uL PT 9.9 (9.0-12.0) sec INR 0.9 (<1.2) APTT 20.7 L (22.0-30.0) sec Sodium (137-145) mmol/L Potassium (3.5-5.1) mmol/L Chloride (98-107) mmol/L Carbon Dioxide (22-30) mmol/L Anion Gap mmol/L BUN (7-17) mg/dL Creatinine (0.52-1.04) mg/dL Est GFR (CKD-EPI)AfAm (>60 ml/min/1.73 sqM) Est GFR (CKD-EPI)NonAf (>60 ml/min/1.73 sqM) Glucose (74-99) mg/dL Plasma Lactic Acid Abhijeet (0.7-2.0) mmol/L Calcium (8.4-10.2) mg/dL Total Bilirubin (0.2-1.3) mg/dL AST (14-36) U/L ALT (9-52) U/L Alkaline Phosphatase (38-126) U/L Troponin I <0.012 (0.000-0.034) ng/mL NT-Pro-B Natriuret Pep 477 pg/mL Total Protein (6.3-8.2) g/dL Albumin (3.5-5.0) g/dL 02/02/19 17:42 EKG performed at 1546 shows normal sinus rhythm normal EKG. Ventricular rate of 70 bpm. Pulse 126 ms. QRS duration is 82 ms. QT QTc is 410/442 ms. (Do Dickey) - Radiology Data Chest x-ray shows subsegmental atelectasis changes. Correlating to exclude pneumonia. Follow-up is indicated. (Do Dickey) Disposition Is patient prescribed a controlled substance at d/c from ED?: No Time of Disposition: 17:44 <Do Dickey - Last Filed: 02/02/19 17:42> <Delon Bailey - Last Filed: 02/02/19 17:48> Clinical Impression: HCAP (healthcare-associated pneumonia), Weakness, Failure of outpatient treatment Disposition: ADMITTED IP TO THIS HOSP Condition: Stable Referrals: Marty Faulkner DO [Primary Care Provider] - 1-2 days
[2019-02-02] MEDS: SODIUM CHLORIDE 0.9% 500 ML 500 ML IV SCH ×2 (15:43→17:24)
[2019-02-02 15:57] LABS: Basophils % (A) 0 %; Eosinophils # (A) 0.1 k/uL (0-0.7); Eosinophils % (A) 1 %; HCT 35.5 % (34.0-46.0); HGB 10.8 gm/dL (11.4-16.0); Lymphocytes # (A) 0.5 k/uL (1.0-4.8); Lymphocytes % (A) 7 %; MCH 27.8 pg (25.0-35.0); MCHC 30.6 g/dL (31.0-37.0); MCV 90.9 fL (80.0-100.0); Mean Platelet Volume 8.5; Monocytes # (A) 0.3 k/uL (0-1.0); Monocytes % (A) 5 %; Neutrophils # (A) 5.7 k/uL (1.3-7.7); Neutrophils % (A) 86 %; Platelet Count 230 k/uL (150-450); RDW 14.1 % (11.5-15.5); WBC 6.6 k/uL (3.8-10.6)
[2019-02-02 16:08] LABS: ALT 43 U/L (9-52); AST 33 U/L (14-36); African American GFR (CKD) >90 (>60 ml/min/1.73 sqM); Albumin 3.4 g/dL (3.5-5.0); Alkaline Phosphatase 69 U/L (38-126); Anion Gap 7 mmol/L; Blood Urea Nitrogen 25 mg/dL (7-17); Calcium 8.4 mg/dL (8.4-10.2); Carbon Dioxide 24 mmol/L (22-30); Chloride 109 mmol/L (98-107); Glucose 121 mg/dL (74-99); Non-African American GFR(CKD) >90 (>60 ml/min/1.73 sqM); Potassium 4.2 mmol/L (3.5-5.1); Sodium 140 mmol/L (137-145); Total Bilirubin 0.3 mg/dL (0.2-1.3); Total Protein 5.9 g/dL (6.3-8.2)
--- NOTE | 2019-02-02 16:21 | XR ---
EXAMINATION TYPE: XR chest 2V DATE OF EXAM: 02/02/2019 COMPARISON: Prior chest x-ray 01/30/2019 HISTORY: Fever TECHNIQUE: Frontal and lateral views of the chest are obtained. FINDINGS: Patchy increased density present at the left lung base. There are overlying cardiac leads. There is no pleural effusion or pneumothorax seen. The cardiac silhouette size is within normal donahue its. The osseous structures are intact. IMPRESSION: There may be subsegmental atelectatic changes, correlate to exclude pneumonia. Follow-up as indicated.
[2019-02-02 16:25] LABS: INR 0.9 (<1.2); Prothrombin Time 9.9 sec (9.0-12.0)
[2019-02-02 16:29] LABS: Partial Thromboplastin Time 20.7 sec (22.0-30.0)
[2019-02-02] MEDS ORDERED: cefTRIAXone IN SWFI 1,000 MG/10 ML SYRINGE IVP STA (17:12)
[2019-02-02] MEDS ORDERED: PNEUMONIA PROTOCOL UTILIZED 1 EACH MISC PO PRN (17:45)
[2019-02-02 18:00] LABS: Appearance,Urine Clear (Clear); Bilirubin,Urine Negative (Negative); Blood,Urine Negative (Negative); Color,Urine Yellow; Glucose,Urine (UA) Negative (Negative); Ketones,Urine Negative (Negative); Leukocyte Esterase,Urine Negative (Negative); Nitrite,Urine Negative (Negative); Protein,Urine Negative (Negative); Specific Gravity,Urine 1.019 (1.001-1.035); Urobilinogen,Urine <2.0 mg/dL (<2.0)
[2019-02-02] MEDS ORDERED: BACLOFEN 10 MG TAB PO PRN (18:26)
[2019-02-02] MEDS ORDERED: IBUPROFEN 800 MG TAB PO PRN (18:26)
[2019-02-02] MEDS ORDERED: traMADol 50 MG TAB PO PRN (18:31)
[2019-02-02] MEDS: IPRATROPIUM-ALBUTEROL 3 ML NEB INHALATION SCH (20:07)
[2019-02-02] MEDS: methylPREDNISolone SOD SUCCI 125 MG/2 ML VIAL IV SCH (21:09)
[2019-02-02] MEDS: HEPARIN SODIUM,PORCINE 5,000 UNIT/ML 1 ML VIAL SQ SCH (21:09)
[2019-02-02] MEDS: FAMOTIDINE 20 MG TAB PO SCH (21:10)
[2019-02-02] MEDS: ALPRAZolam 1 MG TAB PO SCH (21:10)
[2019-02-02] MEDS: PRAVASTATIN SODIUM 20 MG TAB PO SCH (21:10)
[2019-02-02] MEDS: QUEtiapine 100 MG TAB PO SCH (21:10)
[2019-02-02] MEDS: TEMAZEPAM 15 MG CAP PO PRN (21:10)
[2019-02-02] MEDS: MONTELUKAST 10 MG TAB PO SCH (21:10)
[2019-02-02] MEDS: FLUoxetine HCL 20 MG CAP PO SCH (21:10)
[2019-02-02] MEDS: LEVOFLOXACIN 750MG-D5W PMX 750 MG in DEXTROSE/WATER 1 150ML.BAG IVPB SCH (21:10)
[2019-02-02] MEDS: PANTOPRAZOLE 40 MG TABLET PO SCH (21:16)
[2019-02-02 22:02] LABS: Glucose,Whole Blood 162 mg/dL (75-99)
--- NOTE | 2019-02-02 22:11 | HP ---
HISTORY AND PHYSICAL DATE OF SERVICE: 02/02/2019 CHIEF COMPLAINT: Fever and cough. HISTORY OF PRESENT ILLNESS: This 63-year-old woman with a past history of multiple medical problems including asthma, COPD, CHF, dementia, fibromyalgia, GERD, hypertension, hyperlipidemia, history of recurrent pneumonia, being followed by Dr. Prince in the outpatient was recently admitted with pneumonia, shortness of breath and COPD. The patient was treated with antibiotics and patient improved significantly. The patient went home and currently the patient is complaining of fever, chest pains, multiple complaints including weakness. The patient came to [facility] and was admitted for further evaluation and treatment. There is no history of headache, loss conscious or seizures. Patient also shortness of breath. The initial labs are noted. The initial chest x-ray showed suspicion of bilateral pneumonia. PAST MEDICAL HISTORY: History of COPD, CHF, history of dementia, history of GERD, history of hyperlipidemia, history of myocardial infarction, history of and anxiety. MEDICATIONS: Home medications are: 1. Prednisone 40 mg p.o. daily. 3. Seroquel 100 mg at bedtime. 4. Pravachol 20 mg at bedtime. 5. Prilosec 40 mg p.o. b.i.d. 6. Singulair 10 mg bedtime. 7. DuoNeb q.i.d. p.r.n. 8. Motrin 800 mg every 8 p.r.n. 9. Lasix 20 mg daily p.r.n. 10.Breo Ellipta 200/25 1 p.o. b.i.d. daily. 11.Prozac 40 mg p.o. b.i.d. 12.Adderall 20 mg p.o. b.i.d. 14.Xanax 2 mg p.o. t.i.d. ALLERGIES: ADHESIVE TAPES and MORPHINE. FAMILY HISTORY: History of pancreatic cancer. SOCIAL HISTORY: No history of smoking. No history of alcohol intake. REVIEW OF SYSTEMS: ENT: Diminished vision. CARDIOVASCULAR: As mentioned earlier. GI: No nausea or vomiting. : No dysuria or hematuria. NERVOUS SYSTEM: No numbness or weakness. ALLERGY: No hayfever. MUSCULOSKELETAL: As mentioned earlier. HEMATOLOGY: As mentioned earlier. CONSTITUTIONAL: As mentioned earlier. DERMATOLOGY: Negative. RHEUMATOLOGY: Negative. PSYCHIATRY: As mentioned earlier. PHYSICAL EXAM: Patient is alert, oriented x3. Pulse is 62, blood pressure 120/82, respirations 22, temperature 98.2, pulse ox 97% on room air. HEENT: Conjunctivae normal. Oral mucosa moist. NECK: No jugular venous distention. No lymph node enlargement. CARDIOVASCULAR: S1 and S2 muffled. LUNGS: Breath sounds diminished in the bases. Bilateral scattered rhonchi and crackles. Breathing effort also increased, mainly predominantly heard in the lower parts. ABDOMEN: Soft, nontender. No mass palpable. LEGS: No edema, no swelling. NERVOUS SYSTEM: As mentioned. Moves all 4 limbs. No focal motor sensory deficit. LYMPHATICS: No lymph nodes palpable in the neck or axillae. SKIN: No ulcers. JOINTS: No active deformity or arthropathy. LABS: At this time show WBC 6.2, hemoglobin 10.8, sodium 140, potassium 4.2. ASSESSMENT: 1. Possible bibasilar pneumonia with continued fever with failure of outpatient treatment. 2. Anemia, normocytic. 3. History of COPD and asthma. 4. History of dementia. 5. History of CHF, ejection fraction unknown. 6. History of fibromyalgia. 7. History of GERD. 8. History of GI bleed. 9. Hyperlipidemia. 10.History of dementia. 11.History of myocardial infarction. 12.History of recurrent pneumonia. 13.History of esophageal stricture. 14.History of skin cancer. 15.History of restless leg syndrome. 16.History of anxiety. RECOMMENDATIONS AND DISCUSSION: This 63-year-old woman presented with multiple complex medical issues. At this time I recommend to continue current medications and symptomatic treatment. Otherwise, also on broad-spectrum IV antibiotics. I would also recommend bronchodilators. Resume the home medications. Also recommend pulmonary consultation as well as GI consultation for evaluation of the stricture and possible dilatation. Guarded prognosis. Further recommendations to follow. MMODL / IJN: [id number] / MARYANNE
[2019-02-02] MEDS: INSULIN ASPART (NovoLOG) 100 UNIT/ML VIAL SQ SCH (22:19)
[2019-02-03] MEDS: PIPERACILLIN-TAZOBACTAM 3.375 GM in SODIUM CHLORIDE 0.9% 100 ML IVPB SCH ×3 (00:15→15:10)
[2019-02-03] MEDS: methylPREDNISolone SOD SUCCI 125 MG/2 ML VIAL IV SCH ×4 (00:15→18:42)
[2019-02-03 07:30] LABS: Glucose,Whole Blood 140 mg/dL (75-99)
[2019-02-03] MEDS ORDERED: PANTOPRAZOLE 40 MG TABLET PO SCH (07:30)
[2019-02-03] MEDS: IPRATROPIUM-ALBUTEROL 3 ML NEB INHALATION SCH ×4 (07:45→19:55)
[2019-02-03] MEDS: SYMBICORT 160-4.5 MCG INHALER INHALATION SCH ×2 (07:45→19:54)
--- NOTE | 2019-02-03 07:54 | XR ---
EXAMINATION TYPE: XR chest 2V DATE OF EXAM: 02/03/2019 COMPARISON: 02/02/2019 TECHNIQUE: PA and lateral views submitted. HISTORY: Abnormal x-ray FINDINGS: Hypertrophic and degenerative change spine. Heart size stable. No pneumothorax. Arthropathy of the sh oulders. Bilateral subsegmental consolidation at bases. IMPRESSION: 1. Basilar subsegmental consolidation appears improved on the lateral view. Atelectasis favored over pneumonia correlate clinically.
[2019-02-03] MEDS: NON FORMULARY DRUG (Dextroamphetamine/Amphetamine [Adderall] 20 MG) PO SCH ×2 (07:55→17:00)
[2019-02-03] MEDS: FAMOTIDINE 20 MG TAB PO SCH ×2 (07:57→21:42)
[2019-02-03] MEDS: INSULIN ASPART (NovoLOG) 100 UNIT/ML VIAL SQ SCH ×4 (07:57→21:42)
[2019-02-03] MEDS: HEPARIN SODIUM,PORCINE 5,000 UNIT/ML 1 ML VIAL SQ SCH (07:57)
[2019-02-03] MEDS: FLUoxetine HCL 20 MG CAP PO SCH ×2 (07:57→21:42)
[2019-02-03] MEDS: PANTOPRAZOLE 40 MG TABLET PO SCH ×2 (07:57→18:42)
[2019-02-03] MEDS: ALPRAZolam 1 MG TAB PO SCH ×3 (07:57→21:42)
[2019-02-03] MEDS ORDERED: RX INFO: IV CONTRAST WAS GIVEN 1 EACH MISC MISCELLANE PRN (11:07)
[2019-02-03 12:46] LABS: Glucose,Whole Blood 125 mg/dL (75-99)
[2019-02-03] MEDS ORDERED: HEPARIN SODIUM,PORCINE 10,000 UNIT/ML 1 ML VIAL IV ONE (14:01)
[2019-02-03] MEDS ORDERED: HEPARIN SODIUM,PORCINE 5,000 UNIT/ML 1 ML VIAL IV PRN (14:01)
--- NOTE | 2019-02-03 14:23 | CT ---
EXAMINATION TYPE: CT angio chest DATE OF EXAM: 02/03/2019 COMPARISON: Prior CT angiogram of the chest 09/13/2018 HISTORY: Chest pain, pneumonia. CT DLP: 331 mGycm Automated exposure control for dose reduction was used. CONTRAST: CTA scan of the thorax is performed with IV Contrast, patient injected with 100 mL of Isovue 370, pul monary embolism protocol. MIP images are created and reviewed. 3D reconstructed images are created on an independent workstation and reviewed. FINDINGS: LUNGS: The lungs are grossly clear, there is no concerning parenchymal mass or nodule identified. T here are minimal effusion suspected. The tracheobronchial tree is patent. AORTA: No additional significant abnormality is seen. MEDIASTINUM: There is satisfactory enhancement of the pulmonary artery and its branches, there are se gmental filling defects present within the lower lobe, possibly upper lobe on the right. There are n o greater than 1 cm hilar or mediastinal lymph nodes. No pericardial effusion is seen. OTHER: Postop changes are noted at the gastroesophageal junction and stomach, distal esophagus is so mewhat prominent. IMPRESSION: PULMONARY EMBOLISM. REPORT RELAYED TO PATIENT'S NURSE JITENDRA TELEPHONICALLY AT THE TIME OF PERFORMAN CE THE EXAM. THE PREVIOUSLY IDENTIFIED NODULE IN THE RIGHT UPPER LOBE IS NO LONGER SEEN. A Red level critical message alert has been initiated for Ap Yang MD via the [employer] Critical Results System on 02/03/2019 2:19 PM. This message alert has been sent to Ap Yang MD via the preferences provided by the clinician for the receipt of Radiology Critical Findings. Message ID [id number].
[2019-02-03] MEDS: HEPARIN SOD,PORK IN 0.45% NACL 25,000 UNIT in 0.45% NACL 1 250ML.BAG IV SCH (14:27)
--- NOTE | 2019-02-03 14:48 | P.CNPUL ---
History of Present Illness Consult date: 02/03/19 Requesting physician: Jaiden Barraza Reason for consult: dyspnea, chest pain Chief complaint: Shortness of breath, low-grade fever, chest pressure History of present illness: This is 63-year-old white female patient who was recently hospitalized for left lower lobe pneumonia, and patient was treated with Rocephin and Zithromax, IV steroids, nebulized bronchodilators, she showed clinical and radiographic improvement, was discharged home in stable condition on 01/31/2019. Note that prior to discharge patient was having some episodes of chest pain, that she stated were similar to her esophageal spasms and patient does have history of esophageal strictures that required dietitian in the past. EKG did not show any ischemic changes, troponins were negative. Her chest pain would resolve spon taneously, she was on room air, blood cultures showed no growth. Patient does have a pulmonary nodule measuring 4 mm in the right upper lobe there is being monitored by Dr. Gar on outpatient basis. Patient was supposed to have a follow-up CAT scan of chest recently but ended up in the hospital. Other medical history is that of chronic bronchial asthma, moderately persistent, patient is a lifetime nonsmoker, obstructive sleep apnea nontolerant to CPAP, history of gastric bypass surgery, and patient claims she has a malabsorption disorder and she is concerned that she was not absorbing her oral antibiotics when she was sent home. Also has history of anxiety/PTSD and depression. Patient came in to the emergency department on 02/02/2019 with her for complaints of increased weakness, generalized feeling of malaise, low-grade fevers, she states she was very unsteady when she went home, she states she fell and injured her left elbow and her left wrist. She was taking Ceftin at home as prescribed. Apparently yesterday morning she noted a low-grade fever of 98.5 initially, which then increased to 100.5F. She was having chest pressure which was radiating through to her back, she was feeling generally unwell. Chest x- ray was completed showing subsegmental atelectatic changes, at the left lung base, follow-up chest x-ray today showed basilar subsegmental consolidation which appears to be improved on the lateral view, atelectasis is favored over pneumonia. Lab work showed white blood cell count of 6.6, hemoglobin of 10.8, platelet count is 2:30, INR 0.9, sodium is 140, potassium is 4.2, chloride was 109, CO2 is 24, B1 is 25 creatinine 0.61, troponin was negative 1, proBNP was 477, urinalysis was negative. Lung sounds are clear, diminished at the bases, ration has been afebrile since admission, room air pulse ox is 96%, hemodynamically stable. Her cough is dry, no congestion. CTA chest is pending. Patient is quite tearful, is concerned that she is not absorbing oral medications as well as the IV antibiotics. No shortness of breath but she does complain of some pleuritic type chest pain in her anterior chest Review of Systems All systems: negative Constitutional: Reports malaise, Reports weakness, Denies chills, Denies fever Eyes: denies blurred vision, denies pain Ears, nose, mouth and throat: Denies headache, Denies sore throat Cardiovascular: Denies chest pain, Denies shortness of breath Respiratory: Denies cough Gastrointestinal: Denies abdominal pain, Denies diarrhea, Denies nausea, Denies vomiting Genitourinary: Denies dysuria, Denies hematuria Musculoskeletal: Denies myalgias Integumentary: Denies pruritus, Denies rash Neurological: Denies numbness, Denies weakness Psychiatric: Denies anxiety, Denies depression Endocrine: Denies fatigue, Denies weight change Past Medical History Past Medical History: Asthma, Cancer, Heart Failure, COPD, Dementia, Fibromyalgia, GERD/Reflux, GI Bleed, Hyperlipidemia, Memory Impairment, Myocardial Infarction (MN), Osteoarthritis (OA), Pneumonia, Sleep Apnea/CPAP/BIPAP Additional Past Medical History / Comment(s): Recurrent pneumonia/sepsis, R upper lung suspicious nodule-being monitored-was to have repeat cat scan 01/30/19, skin cancer with removals, pt states she had a MN in 2016 but cannot recall how it was diagnosed-no cath, hypotension, "shock" dementia d/t of daughter, esophageal strictures with ballooning, diverticular disease, anemia, arthritis in back/hips/knees, RLS, kidney stones which she has passed and had surgically removed, sinus problems, LORIE-stopped wearing device d/t intolerance, recent trauma to R foot toes. Last Myocardial Infarction Date:: 2016 History of Any Multi-Drug Resistant Organisms: None Reported Past Surgical History: Adenoidectomy, Appendectomy, Breast Surgery, Hernia Repair, Hysterectomy, Tonsillectomy Additional Past Surgical History / Comment(s): R breast lumpectomies x 2 (benign), 3 umbilical hernia repairs, lithotripsies, stomach bypass/bowel resection 2ndary to GI bleed, L chao benign tumor, multiple skin bx/skin cancer removals, EGD/dilations and colonoscopies. Past Anesthesia/Blood Transfusion Reactions: Previous Problems w/ Anesthesia Additional Past Anesthesia/Blood Transfusion Reaction / Comment(s): bp dips low Past Psychological History: Anxiety Additional Psychological History / Comment(s): Pt resides with her spouse and their daughter and 2 grand children. She is independent. Pt. states her daughter of suicide 7 years ago. Smoking Status: Never smoker Past Alcohol Use History: None Reported Past Drug Use History: None Reported - Past Family History Brother(s) Family Medical History: Cancer Additional Family Medical History / Comment(s): Psychiatric history also runs in the patient's family. The patient's daughter has committed suicide. The patient's brother and sister and mother all of cancers. Apparently rest cancer and esophageal cancer and pancreatic cancer runs in family unable to give detailed history on that. Sister(s) Family Medical History: Cancer Father Family Medical History: Cancer Additional Family Medical History / Comment(s): Father had lung cancer. Mother Family Medical History: Cancer Additional Family Medical History / Comment(s): Mother had pancreatic cancer. Medications and Allergies Home Medications Medication Instructions Recorded Confirmed Type ALPRAZolam [Xanax] 2 mg PO TID 12/14/13 02/02/19 History Dextroamphetamine/Amphetamine 20 mg PO BID 12/14/13 02/02/19 History [Adderall] FLUoxetine HCL [PROzac] 40 mg PO BID 12/14/13 02/02/19 History Omeprazole [PriLOSEC] 40 mg PO BID 09/21/14 02/02/19 History Baclofen 10 mg PO Q8H PRN 01/04/16 02/02/19 History QUEtiapine [SEROquel] 100 mg PO HS 01/04/16 02/02/19 History Fluticasone/Vilanterol [Breo 1 puff INHALATION RT-DAILY 05/15/18 02/02/19 History Ellipta 200-25 Mcg INH] Ibuprofen [Motrin] 800 mg PO Q8H PRN 05/15/18 02/02/19 History Ipratropium-Albuterol Nebulize 3 ml INHALATION RT-QID PRN 05/15/18 02/02/19 History [Duoneb 0.5 mg-3 mg/3 ml Soln] Ranitidine HCl 150 mg PO BID 05/15/18 02/02/19 History Furosemide [Lasix] 20 mg PO DAILY PRN 10/30/18 02/02/19 History Pravastatin Sodium [Pravachol] 20 mg PO HS 01/01/19 02/02/19 History Montelukast [Singulair] 10 mg PO HS 01/30/19 02/02/19 History Cefuroxime Axetil [Ceftin] 500 mg PO BID 5 Days #10 tab 01/31/19 02/02/19 Rx predniSONE 40 mg PO DAILY 4 Days tab 01/31/19 02/02/19 Rx Allergies Allergy/AdvReac Type Severity Reaction Status Date / Time adhesive tape AdvReac Skin Verified 02/02/19 18:09 Tearing morphine AdvReac Confusion Verified 02/02/19 18:09 Physical Exam Vitals: Vital Signs Temp Pulse Pulse Resp BP BP Pulse Ox 02/03/19 07:57 70 02/03/19 07:45 68 02/03/19 05:58 98.1 F 69 18 129/76 96 02/02/19 22:30 97 02/02/19 22:00 97.5 F L 66 16 115/64 97 02/02/19 20:17 68 02/02/19 20:07 64 02/02/19 17:30 67 18 114/69 97 02/02/19 17:13 98.3 F 19 02/02/19 17:00 62 22 122/82 97 02/02/19 16:53 21 02/02/19 16:30 65 19 127/76 97 02/02/19 16:27 67 02/02/19 16:15 68 02/02/19 16:00 70 124/78 02/02/19 15:30 71 13 124/71 98 02/02/19 14:40 99.1 F 83 18 116/78 97 Intake and Output 07/28/19 07/29/19 07/29/19 22:59 06:59 14:59 Other: Voiding Method Bedside Commode # Voids 1 GENERAL EXAM: Alert, cheerful 63-year-old white female, on room air, with a pulse ox of 96% comfortable in no apparent distress. HEAD: Normocephalic/atraumatic. EYES: Normal reaction of pupils, equal size. Conjunctiva pink, sclera white. NOSE: Clear with pink turbinates. THROAT: No erythema or exudates. NECK: No masses, no JVD, no thyroid enlargement, no adenopathy. CHEST: No chest wall deformity. Symmetrical expansion. LUNGS: Equal air entry with no crackles, wheeze, rhonchi or dullness. CVS: Regular rate and rhythm, normal S1 and S2, no gallops, no murmurs, no rubs ABDOMEN: Soft, nontender. No hepatosplenomegaly, normal bowel sounds, no guarding or rigidity. EXTREMITIES: No clubbing, no edema, no cyanosis, 2+ pulses and upper and lower extremities. MUSCULOSKELETAL: Muscle strength and tone normal. SPINE: No scoliosis or deformity SKIN: No rashes CENTRAL NERVOUS SYSTEM: Alert and oriented -3. No focal deficits, tone is normal in all 4 extremities. PSYCHIATRIC: Alert and oriented -3. Appropriate affect. Intact judgment and insight. Results - Laboratory Findings CBC and BMP: 02/02/19 15:39 02/02/19 15:39 PT/INR, D-dimer PT 9.9 sec (9.0-12.0) 02/02/19 15:39 INR 0.9 (<1.2) 02/02/19 15:39 Abnormal lab findings: Abnormal Labs 02/02/19 02/02/19 02/02/19 15:39 15:39 15:39 Hgb 10.8 L MCHC 30.6 L Lymphocytes # 0.5 L APTT 20.7 L Chloride 109 H BUN 25 H Glucose 121 H POC Glucose (mg/dL) Total Protein 5.9 L Albumin 3.4 L 02/02/19 02/03/19 02/03/19 22:00 07:26 12:40 Hgb MCHC Lymphocytes # APTT Chloride BUN Glucose POC Glucose (mg/dL) 162 H 140 H 125 H Total Protein Albumin - Diagnostic Findings Chest x-ray: report reviewed, image reviewed CT scan - chest: report reviewed, image reviewed Assessment and Plan Plan: Assessment: #1. Acute bilateral pulmonary emboli, awaiting final reading from the radiology, seen on the CTA chest, in peripheral branches. Troponin was negative, echocardiogram is pending #2. Chest pressure and shortness of breath likely related to the above #3. Recent episode of left lower lung pneumonia, patient was hospitalized, negative cultures, chest x-ray from this admission showed atelectatic changes at the bases #4. Moderately persistent bronchial asthma #5. Lifetime nonsmoker #6. Obstructive sleep apnea intolerant to CPAP therapy #7. History of gastric bypass surgery for previous history of GI bleeding #8. 4 mm pulmonary nodule in the right upper lobe being monitored on outpatient basis #9. History of esophageal stricture with previous dietitian #10. Severe GERD #11. History of anxiety/depression/PTSD #12. Hyperlipidemia #13. History of skin cancer Plan: Continue with current antibiotics, patient has been afebrile, her cough is dry, CTA chest film has been reviewed with Dr. Chacko, showing multiple peripheral emboli in bilateral lungs. Troponin was negative, proBNP is within normal limits, will obtain echocardiogram, we'll request a stat read from the radiologist, we'll start heparin drip, daily blood work, patient did have a previous history of GI bleeding, monitor for any signs of GI bleeding, and anemia. We sent a pro-calcitonin, chest x-rays were negative for any acute pulmonary process other than a basilar atelectasis. No leukocytosis. Patient is on room air, maintaining stable oxygenation although she is still complaining of chest heaviness. We'll start heparin drip will follow I performed a history & physical examination of the patient and discussed their management with my nurse practitioner, Ruth Ann Soto. I reviewed the nurse practitioner's note and agree with the documented findings and plan of care. Lung sounds are positive for diminished breath sounds throughout the lung vaughn. The findings and the impression was discussed with the patient. I attest to the documentation by the nurse practitioner. Time with Patient: Greater than 30
[2019-02-03 15:05] LABS: Basophils % (A) 0 %; Eosinophils % (A) 0 %; HCT 39.8 % (34.0-46.0); Hypochromasia Moderate; Lymphocytes # (A) 0.4 k/uL (1.0-4.8); Lymphocytes % (A) 6 %; MCH 28.9 pg (25.0-35.0); MCHC 30.2 g/dL (31.0-37.0); MCV 95.8 fL (80.0-100.0); Mean Platelet Volume 9.1; Monocytes # (A) 0.2 k/uL (0-1.0); Monocytes % (A) 3 %; Neutrophils # (A) 6.3 k/uL (1.3-7.7); Neutrophils % (A) 90 %; Platelet Count 269 k/uL (150-450); RBC 4.15 m/uL (3.80-5.40); RDW 14.4 % (11.5-15.5)
[2019-02-03] MEDS: BUTALB/APAP/CAFF 50-325-40MG TAB PO PRN ×2 (15:11→20:05)
[2019-02-03 15:27] LABS: Prothrombin Time 10.9 sec (9.0-12.0)
[2019-02-03 15:29] LABS: Partial Thromboplastin Time >200.0 sec (22.0-30.0)
[2019-02-03 17:49] LABS: Glucose,Whole Blood 143 mg/dL (75-99)
[2019-02-03 20:38] LABS: Glucose,Whole Blood 156 mg/dL (75-99)
[2019-02-03] MEDS: MONTELUKAST 10 MG TAB PO SCH (21:42)
[2019-02-03] MEDS: QUEtiapine 100 MG TAB PO SCH (21:42)
[2019-02-03] MEDS: TEMAZEPAM 15 MG CAP PO PRN (21:42)
[2019-02-03] MEDS: PRAVASTATIN SODIUM 20 MG TAB PO SCH (21:42)
[2019-02-03] MEDS: LEVOFLOXACIN 750MG-D5W PMX 750 MG in DEXTROSE/WATER 1 150ML.BAG IVPB SCH (21:45)
--- NOTE | 2019-02-03 21:49 | CONS ---
CONSULTATION DATE OF SERVICE: 02/03/2019 REQUESTING PHYSICIAN: Dr. Yang. REASON FOR CONSULTATION: Intermittent dysphagia and history of esophageal stricture. HISTORY OF PRESENT ILLNESS: The patient is a 63-year-old pleasant white female came into the emergency room complaining of shortness of breath. Low grade fever, increasing weakness for the last 3-4 days duration. The patient was recently discharged from the hospital. At this time, she was admitted with left lower lobe pneumonia, treated with broad-spectrum antibiotics and was discharged home and apparently on January 30, she was stable. She came back with the above symptoms and she had CTA done in the emergency room this morning and was diagnosed with bilateral pulmonary emboli and presently on IV heparin. The reason we are consulted is because of history of esophageal stricture and history of severe gastroesophageal reflux disease. The patient was diagnosed with GERD almost 20 years ago. She follows with Dr. Kumar. She had several upper endoscopies with dilation. The last one performed about 4 years ago at [facility]. However, the last upper endoscopy without any dilation was performed by Dr. Kumar about 3 months ago on November 04, 2018, which revealed normal- appearing esophagus with no evidence of esophagitis or esophageal stricture. She has Owen-En-Y gastric anastomosis with no evidence of anastomotic stricture. PAST MEDICAL HISTORY: Significant for recent diagnosis of pneumonia, history of hypertension and congestive heart failure, asthma, gastroesophageal reflux disease, mild dementia, degenerative joint disease and sleep disorder. PAST SURGICAL HISTORY: Appendectomy, adenoidectomy, back surgery, hernia repair, hysterectomy, tonsillectomy. Last EGD October of 2018, breast lumpectomy, hernia repair. MEDICATIONS: At home include Xanax, Adderall, Prozac, Prilosec, Seroquel, Breo Ellipta, Motrin, Ceftin, Singulair, Pravachol, Lasix, , DuoNeb, prednisone. ALLERGIES: MORPHINE. SOCIAL HISTORY: No smoking or alcohol use. FAMILY HISTORY: Sister has some kind of cancer. Father had lung cancer and mother had pancreatic cancer. REVIEW OF SYSTEMS: Cardiopulmonary: She does complain of some chest discomfort, but no shortness of breath. GENITOURINARY: No dysuria or hematuria. MUSCULOSKELETAL unremarkable. SKIN unremarkable. ENDOCRINE unremarkable. PSYCHIATRIC unremarkable. NEUROLOGY mild dementia. ENT/vision unremarkable. GI as mentioned above. CONSTITUTIONAL: No recent weight loss. No fever, chills, night sweats. PHYSICAL EXAMINATION: She appears comfortable. No apparent distress. Vital signs stable. Blood pressure 136/88, pulse rate 73, temperature 99.4. HEENT examination unremarkable. Conjunctivae pink. Sclerae anicteric. Oral cavity no lesions. NECK: No JVD or lymph node enlargement. CHEST: Clear to auscultation. HEART: Regular rate and rhythm. ABDOMEN: Soft. Bowel sounds are positive. No organomegaly. EXTREMITIES: No pedal edema. SKIN: No rashes. NEUROLOGIC: Alert and oriented x3. No focal deficits. LABS: Done at the time of admission to the hospital: WBC is 6.6, hemoglobin 10.8, platelets normal. Basic metabolic panel is within normal limits. CTA showed bilateral pulmonary emboli. IMPRESSION: 1. Acute bilateral pulmonary emboli for which Dr. Hackett following the patient closely. She is started on IV heparin and further workup is pending. 2. Longstanding history of gastroesophageal reflux disease with intermittent dysphagia to solids. Upper endoscopy done by Dr. Kumar October 25, 2018 did not show any evidence of esophageal stricture or esophagitis. She has been maintained on omeprazole 40 mg twice daily and Zantac at bedtime and was doing well. Lately has been having intermittent dysphagia to solids once a month or so. 3. Recent episode of pneumonia for which she was hospitalized and discharged home on January 30 presently on broad-spectrum antibiotics. RECOMMENDATIONS: 1. Start on Protonix 40 mg twice daily. 2. Diet as tolerated. 3. No indication for endoscopy intervention at the present time, but she was advised to follow up in the office following discharge from the hospital. Thank you for this consultation. MMODL / IJN: [id number] /
[2019-02-04] MEDS: methylPREDNISolone SOD SUCCI 125 MG/2 ML VIAL IV SCH ×2 (00:23→06:14)
[2019-02-04] MEDS: PIPERACILLIN-TAZOBACTAM 3.375 GM in SODIUM CHLORIDE 0.9% 100 ML IVPB SCH ×2 (00:25→09:10)
--- NOTE | 2019-02-04 00:40 | P.PN ---
Progress Note - Text Progress Note Date: 02/03/19 Interval history: Admitted with pneumonia. Today-on further questioning patient stated that yesterday she had become short of breath and neck clean nearly passed out. Was short of breath. Minimal cough. No fever no chills. Just a little bit short of breath and decided to order a CT chest rule out PE.. Review of systems: Was done for constitutional, cardiovascular, GI, pulmonary. relevant finding as above Active Medications Acetaminophen/Butalbital/Caffeine (Fioricet 50-325-40) 1 each PO Q4HR PRN PRN Reason: Headache Last Admin: 02/03/19 20:05 Dose: 1 each Documented by: Albuterol/Ipratropium (Duoneb 0.5 Mg-3 Mg/3 Ml Soln) 3 ml INHALATION RT-QID [facility] Last Admin: 02/03/19 19:55 Dose: 3 ml Documented by: Alprazolam (Xanax) 2 mg PO TID [facility] Last Admin: 02/03/19 21:42 Dose: 2 mg Documented by: Baclofen (Lioresal) 10 mg PO Q8H PRN PRN Reason: Muscle Pain Budesonide/Formoterol Fumarate (Symbicort 160-4.5 Mcg Inhaler) 2 puff INHALATION RT-BID [facility] Last Admin: 02/03/19 19:54 Dose: 2 puff Documented by: Famotidine (Pepcid) 20 mg PO BID [facility] Last Admin: 02/03/19 21:42 Dose: 20 mg Documented by: Fluoxetine HCl (Prozac) 40 mg PO BID [facility] Last Admin: 02/03/19 21:42 Dose: 40 mg Documented by: Heparin Sodium (Porcine) (Heparin) 0 unit IV PER PROTOCOL PRN; Protocol PRN Reason: Low PTT Levofloxacin 750 mg/ IV (Solution) 150 mls @ 100 mls/hr IVPB Q24H [facility] Stop: 02/15/19 21:01 Last Admin: 02/03/19 21:45 Dose: 100 mls/hr Documented by: Piperacillin Sod/Tazobactam (Sod 3.375 gm/ Sodium Chloride) 100 mls @ 25 mls/hr IVPB Q8HR [facility] Stop: 02/13/19 00:01 Last Admin: 02/04/19 00:25 Dose: 25 mls/hr Documented by: Heparin Sodium/Sodium Chloride (25,000 unit/ Sodium Chloride) 250 mls @ 16.737 mls/hr IV .[id number] [facility]; Protocol Last Titration: 02/03/19 23:02 Dose: 15 units/kg/hr, 13.948 mls/hr Documented by: Ibuprofen (Motrin) 800 mg PO Q8H PRN PRN Reason: Pain Insulin Aspart (Novolog) 0 unit SQ ACHS [facility]; Protocol Last Admin: 02/03/19 21:42 Dose: 1 unit Documented by: Methylprednisolone Sodium Succinate (Solu-Medrol) 60 mg IV Q6HR [facility] Last Admin: 02/04/19 00:23 Dose: 60 mg Documented by: Miscellaneous Information (Pneumonia Protocol Utilized) 1 each PO ONCE PRN PRN Reason: Per Protocol Miscellaneous Information (Rx Info: Iv Contrast Was Given) 1 each MISCELLANE DAILY PRN PRN Reason: Per Protocol Stop: 02/05/19 11:07 Montelukast Sodium (Singulair) 10 mg PO [facility] Last Admin: 02/03/19 21:42 Dose: 10 mg Documented by: Non-Formulary Medication (Dextroamphetamine/Amphetamine [Adderall]) 20 mg PO AC-BID [facility] Last Admin: 02/03/19 17:00 Dose: Not Given Documented by: Pantoprazole Sodium (Protonix) 40 mg PO AC-BID [facility] Last Admin: 02/03/19 18:42 Dose: 40 mg Documented by: Pravastatin Sodium (Pravachol) 20 mg PO [facility] Last Admin: 02/03/19 21:42 Dose: 20 mg Documented by: Quetiapine Fumarate (Seroquel) 100 mg PO [facility] Last Admin: 02/03/19 21:42 Dose: 100 mg Documented by: Temazepam (Restoril) 15 mg PO HS PRN PRN Reason: Insomnia Last Admin: 02/03/19 21:42 Dose: 15 mg Documented by: Tramadol HCl (Ultram) 50 mg PO QID PRN PRN Reason: Breakthrough Pain On examination: VITAL SIGNS: 99.4, 73, 18, 136/88, 97% room air GENERAL APPEARANCE: Laying in bed, tired appearing. HEENT: Normal external appearance of nose and ear. Oral cavity normal EYES: Pupils equal. Conjunctiva normal. NECK: JVD not raised. Mass not palpable. RESPIRATORY: Respiratory effort increased, decreased breath sounds CARDIOVASCULAR: First and second sounds normal. No edema. ABDOMEN: Soft. Liver and spleen not palpable. No tenderness. No mass palpable. PSYCHIATRY: Alert and oriented x3. Mood and affect normal. Investigations: Chest CTA-reports pulmonary embolism Assessment: -Acute pulmonary embolism -Chronic esophageal stricture with recurrent irritation -Chronic fibromyalgia -Depression not otherwise specified -Primary osteoarthritis especially of the hips and knees -COPD -Chronic congestive heart failure from diastolic dysfunction EF 60% Plan: I ordered as urgent CT of the chest. It did come back to confirm probably embolism. Patient started on IV heparin. Pulmonary is on the case. Earlier in the day as spoken at length with the patient. Also it put the patient on telemetry and transfer the patient to telemetry floor. Patient will be followed closely
[2019-02-04 05:44] LABS: Basophils % (A) 0 %; Eosinophils # (A) 0.1 k/uL (0-0.7); Eosinophils % (A) 1 %; HCT 35.4 % (34.0-46.0); Hypochromasia Slight; Lymphocytes # (A) 0.7 k/uL (1.0-4.8); Lymphocytes % (A) 10 %; MCH 28.4 pg (25.0-35.0); MCV 91.8 fL (80.0-100.0); Mean Platelet Volume 8.4; Monocytes # (A) 0.4 k/uL (0-1.0); Monocytes % (A) 5 %; Neutrophils # (A) 5.9 k/uL (1.3-7.7); Neutrophils % (A) 82 %; Platelet Count 235 k/uL (150-450); RBC 3.85 m/uL (3.80-5.40); WBC 7.2 k/uL (3.8-10.6)
[2019-02-04] MEDS: ALPRAZolam 1 MG TAB PO SCH ×3 (06:15→21:21)
[2019-02-04] MEDS: HEPARIN SOD,PORK IN 0.45% NACL 25,000 UNIT in 0.45% NACL 1 250ML.BAG IV SCH (06:23)
[2019-02-04 06:51] LABS: Glucose,Whole Blood 117 mg/dL (75-99)
[2019-02-04] MEDS: NON FORMULARY DRUG (Dextroamphetamine/Amphetamine [Adderall] 20 MG) PO SCH (08:10)
[2019-02-04] MEDS: INSULIN ASPART (NovoLOG) 100 UNIT/ML VIAL SQ SCH ×4 (08:11→21:20)
[2019-02-04] MEDS: FAMOTIDINE 20 MG TAB PO SCH ×2 (08:12→21:21)
[2019-02-04] MEDS: FLUoxetine HCL 20 MG CAP PO SCH ×2 (08:12→21:20)
[2019-02-04] MEDS: PANTOPRAZOLE 40 MG TABLET PO SCH ×2 (08:12→16:07)
[2019-02-04] MEDS: SYMBICORT 160-4.5 MCG INHALER INHALATION SCH ×2 (08:21→20:00)
[2019-02-04] MEDS: IPRATROPIUM-ALBUTEROL 3 ML NEB INHALATION SCH ×4 (08:21→20:00)
[2019-02-04 11:08] LABS: Glucose,Whole Blood 186 mg/dL (75-99)
--- NOTE | 2019-02-04 12:33 | P.PN ---
Subjective Progress Note Date: 02/04/19 Principal diagnosis: Acute bilateral pulmonary emboli This is 63-year-old white female patient who was recently hospitalized for left lower lobe pneumonia, and patient was treated with Rocephin and Zithromax, IV steroids, nebulized bronchodilators, she showed clinical and radiographic improvement, was discharged home in stable condition on 01/31/2019. Note that prior to discharge patient was having some episodes of chest pain, that she stated were similar to her esophageal spasms and patient does have history of esophageal strictures that required dietitian in the past. EKG did not show any ischemic changes, troponins were negative. Her chest pain would resolve sponta neously, she was on room air, blood cultures showed no growth. Patient does have a pulmonary nodule measuring 4 mm in the right upper lobe there is being monitored by Dr. Gar on outpatient basis. Patient was supposed to have a follow-up CAT scan of chest recently but ended up in the hospital. Other medical history is that of chronic bronchial asthma, moderately persistent, patient is a lifetime nonsmoker, obstructive sleep apnea nontolerant to CPAP, history of gastric bypass surgery, and patient claims she has a malabsorption disorder and she is concerned that she was not absorbing her oral antibiotics when she was sent home. Also has history of anxiety/PTSD and depression. Patient came in to the emergency department on 02/02/2019 with her for complaints of increased weakness, generalized feeling of malaise, low-grade fevers, she states she was very unsteady when she went home, she states she fell and injured her left elbow and her left wrist. She was taking Ceftin at home as prescribed. Apparently yesterday morning she noted a low-grade fever of 98.5 initially, which then increased to 100.5F. She was having chest pressure which was radiating through to her back, she was feeling generally unwell. Chest x- ray was completed showing subsegmental atelectatic changes, at the left lung base, follow-up chest x-ray today showed basilar subsegmental consolidation w hich appears to be improved on the lateral view, atelectasis is favored over pneumonia. Lab work showed white blood cell count of 6.6, hemoglobin of 10.8, platelet count is 2:30, INR 0.9, sodium is 140, potassium is 4.2, chloride was 109, CO2 is 24, B1 is 25 creatinine 0.61, troponin was negative 1, proBNP was 477, urinalysis was negative. Lung sounds are clear, diminished at the bases, ration has been afebrile since admission, room air pulse ox is 96%, hemodynamically stable. Her cough is dry, no congestion. CTA chest is pending. Patient is quite tearful, is concerned that she is not absorbing oral medications as well as the IV antibiotics. No shortness of breath but she does complain of some pleuritic type chest pain in her anterior chest On 02/04/2019 patient seen in follow-up on medical surgical floor. She is on IV heparin drip for multiple subsegmental pulmonary emboli. Vital signs are stable, she is on room air, no hypotension, no tachycardia, patient still complains of pleuritic-type chest pain over posterior right lower chest going across the posterior back, lung sounds are diminished, no wheezing, no rales. No hemoptysis. Today's labs have been reviewed, showing white blood cell count of 7.2, hemoglobin of 11.0, platelet count was 235. Rheumatic pulse ox 96%, patient remains on empiric antibiotics in the form of Levaquin and Zosyn. Awaiting pro-calcitonin levels. Objective - Vital Signs Vital signs: Vital Signs Temp 97.8 F 02/04/19 12:10 Pulse 74 02/04/19 12:10 Resp 22 02/04/19 12:10 BP 146/86 02/04/19 12:10 Pulse Ox 96 02/04/19 12:10 Intake & Output 02/03/19 02/04/19 02/04/19 18:59 06:59 18:59 Intake Total 650 813.830 Balance 650 813.830 Intake: Intake, IV Titration 223.830 Amount Heparin Sod,Pork in 0.45% 223.830 NaCl 25,000 unit In 0.45 % NaCl 1 250ml.bag @ 18 UNITS/KG/HR 16.737 mls/hr IV .[id number] [facility] Rx#: [id number] Oral 650 590 Other: Voiding Method Bedside Commode # Voids 1 2 - Exam GENERAL EXAM: Alert, tearful 63-year-old white female, on room air, with a pulse ox of 96%, no acute distress, but complaining of some chest discomfort over left posterior chest across her back HEAD: Normocephalic/atraumatic. EYES: Normal reaction of pupils, equal size. Conjunctiva pink, sclera white. NOSE: Clear with pink turbinates. THROAT: No erythema or exudates. NECK: No masses, no JVD, no thyroid enlargement, no adenopathy. CHEST: No chest wall deformity. Symmetrical expansion. LUNGS: Equal air entry with no crackles, wheeze, rhonchi or dullness. CVS: Regular rate and rhythm, normal S1 and S2, no gallops, no murmurs, no rubs ABDOMEN: Soft, nontender. No hepatosplenomegaly, normal bowel sounds, no guarding or rigidity. EXTREMITIES: No clubbing, no edema, no cyanosis, 2+ pulses and upper and lower extremities. MUSCULOSKELETAL: Muscle strength and tone normal. SPINE: No scoliosis or deformity SKIN: No rashes CENTRAL NERVOUS SYSTEM: Alert and oriented -3. No focal deficits, tone is normal in all 4 extremities. PSYCHIATRIC: Alert and oriented -3. Appropriate affect. Intact judgment and insight. - Labs CBC & Chem 7: 02/04/19 05:26 02/02/19 15:39 Labs: Abnormal Lab Results - Last 24 Hours (Table) 02/03/19 02/03/19 02/03/19 Range/Units 12:40 14:39 14:39 Hgb (11.4-16.0) gm/dL MCHC 30.2 L (31.0-37.0) g/dL Lymphocytes # 0.4 L (1.0-4.8) k/uL APTT >200.0 H* (22.0-30.0) sec POC Glucose (mg/dL) 125 H (75-99) mg/dL 02/03/19 02/03/19 02/03/19 Range/Units 17:38 20:18 20:36 Hgb (11.4-16.0) gm/dL MCHC (31.0-37.0) g/dL Lymphocytes # (1.0-4.8) k/uL APTT 139.7 H* (22.0-30.0) sec POC Glucose (mg/dL) 143 H 156 H (75-99) mg/dL 02/04/19 02/04/19 02/04/19 Range/Units 05:26 05:26 06:50 Hgb 11.0 L (11.4-16.0) gm/dL MCHC (31.0-37.0) g/dL Lymphocytes # 0.7 L (1.0-4.8) k/uL APTT 83.2 H (22.0-30.0) sec POC Glucose (mg/dL) 117 H (75-99) mg/dL 02/04/19 Range/Units 11:04 Hgb (11.4-16.0) gm/dL MCHC (31.0-37.0) g/dL Lymphocytes # (1.0-4.8) k/uL APTT (22.0-30.0) sec POC Glucose (mg/dL) 186 H (75-99) mg/dL Microbiology - Last 24 Hours (Table) 02/02/19 17:40 Urine Culture - Final Urine,Voided 02/02/19 15:39 Blood Culture - Preliminary Blood No Growth after 24 hours Assessment and Plan Plan: Assessment: #1. Acute bilateral pulmonary emboli, awaiting final reading from the radiology, seen on the CTA chest, in peripheral branches. Troponin was negative, echocardiogram is pending #2. Chest pressure and shortness of breath likely related to the above #3. Recent episode of left lower lung pneumonia, patient was hospitalized, negative cultures, chest x-ray from this admission showed atelectatic changes at the bases #4. Moderately persistent bronchial asthma #5. Lifetime nonsmoker #6. Obstructive sleep apnea intolerant to CPAP therapy #7. History of gastric bypass surgery for previous history of GI bleeding #8. 4 mm pulmonary nodule in the right upper lobe being monitored on outpatient basis #9. History of esophageal stricture with previous dietitian #10. Severe GERD #11. History of anxiety/depression/PTSD #12. Hyperlipidemia #13. History of skin cancer Plan: Continue with the IV heparin for now, prescription was sent to the pharmacy for Eliquis, liver patient is afraid she is not going to absorb her properly related to her history of malabsorption, we will check her coverage for Lovenox injections. Continue with empiric antibiotics for now, awaiting per calcitonin level, clinically patient is afebrile, no cough or congestion, still has some pleuritic type chest pain across her posterior lower chest. Vital signs are stable, oxygenation is stable, no hypotension tachycardia, echocardiogram has been ordered and is pending at this time. I performed a history & physical examination of the patient and discussed their management with my nurse practitioner, Ruth Ann Soto. I reviewed the nurse practitioner's note and agree with the documented findings and plan of care. Lung sounds are positive for diminished breath sounds throughout the lung vaughn. The findings and the impression was discussed with the patient. I attest to the documentation by the nurse practitioner. Time with Patient: Less than 30
[2019-02-04] MEDS: BUTALB/APAP/CAFF 50-325-40MG TAB PO PRN (13:05)
[2019-02-04] MEDS ORDERED: ENOXAPARIN 150 MG/ML SYRINGE SQ SCH (14:15)
[2019-02-04] MEDS: APIXABAN 5 MG TAB PO SCH (16:07)
[2019-02-04] MEDS: methylPREDNISolone SOD SUCCI 40 MG/ML 1 ML VIAL IV SCH ×2 (16:09→23:44)
[2019-02-04 17:26] LABS: Glucose,Whole Blood 174 mg/dL (75-99)
[2019-02-04 20:38] LABS: Glucose,Whole Blood 169 mg/dL (75-99)
[2019-02-04] MEDS ORDERED: LEVOFLOXACIN 750 MG TAB PO SCH (21:00)
[2019-02-04] MEDS: QUEtiapine 100 MG TAB PO SCH (21:21)
[2019-02-04] MEDS: MONTELUKAST 10 MG TAB PO SCH (21:21)
[2019-02-04] MEDS: TEMAZEPAM 15 MG CAP PO PRN (21:21)
[2019-02-04] MEDS: PRAVASTATIN SODIUM 20 MG TAB PO SCH (21:21)
--- NOTE | 2019-02-04 23:09 | P.PN ---
Progress Note - Text Progress Note Date: 02/04/19 Interval history: Patient was diagnosed to have pulmonary embolism. Not felt to have pneumonia.. Today-patient had been on IV heparin. Breathing much improved. Earlier patient was discontinued IV heparin. Eliquis was ordered. Patient agreed to take the same. Breathing much improved. Did tolerate some diet. Up to the bathroom. Review of systems: Was done for constitutional, cardiovascular, GI, pulmonary. relevant finding as above Active Medications Acetaminophen/Butalbital/Caffeine (Fioricet 50-325-40) 1 each PO Q4HR PRN PRN Reason: Headache Last Admin: 02/04/19 13:05 Dose: 1 each Documented by: Albuterol/Ipratropium (Duoneb 0.5 Mg-3 Mg/3 Ml Soln) 3 ml INHALATION RT-QID [facility] Last Admin: 02/04/19 20:00 Dose: Not Given Documented by: Alprazolam (Xanax) 2 mg PO TID [facility] Last Admin: 02/04/19 21:21 Dose: 2 mg Documented by: Apixaban (Eliquis) 10 mg PO BID [facility] Stop: 02/11/19 21:01 Last Admin: 02/04/19 16:07 Dose: 10 mg Documented by: Baclofen (Lioresal) 10 mg PO Q8H PRN PRN Reason: Muscle Pain Budesonide/Formoterol Fumarate (Symbicort 160-4.5 Mcg Inhaler) 2 puff INHALATION RT-BID [facility] Last Admin: 02/04/19 20:00 Dose: Not Given Documented by: Famotidine (Pepcid) 20 mg PO BID [facility] Last Admin: 02/04/19 21:21 Dose: 20 mg Documented by: Fluoxetine HCl (Prozac) 40 mg PO BID [facility] Last Admin: 02/04/19 21:20 Dose: 40 mg Documented by: Ibuprofen (Motrin) 800 mg PO Q8H PRN PRN Reason: Pain Insulin Aspart (Novolog) 0 unit SQ ACHS [facility]; Protocol Last Admin: 02/04/19 21:20 Dose: 2 unit Documented by: Methylprednisolone Sodium Succinate (Solu-Medrol) 40 mg IV Q8HR [facility] Last Admin: 02/04/19 16:09 Dose: 40 mg Documented by: Miscellaneous Information (Rx Info: Iv Contrast Was Given) 1 each MISCELLANE DAILY PRN PRN Reason: Per Protocol Stop: 02/05/19 11:07 Montelukast Sodium (Singulair) 10 mg PO [facility] Last Admin: 02/04/19 21:21 Dose: 10 mg Documented by: Pantoprazole Sodium (Protonix) 40 mg PO AC-BID [facility] Last Admin: 02/04/19 16:07 Dose: 40 mg Documented by: Pravastatin Sodium (Pravachol) 20 mg PO [facility] Last Admin: 02/04/19 21:21 Dose: 20 mg Documented by: Quetiapine Fumarate (Seroquel) 100 mg PO [facility] Last Admin: 02/04/19 21:21 Dose: 100 mg Documented by: Temazepam (Restoril) 15 mg PO HS PRN PRN Reason: Insomnia Last Admin: 02/04/19 21:21 Dose: 15 mg Documented by: Tramadol HCl (Ultram) 50 mg PO QID PRN PRN Reason: Breakthrough Pain On examination: VITAL SIGNS: 98.3, 75, 18, 110/73, 94% room air GENERAL APPEARANCE: Propped up in bed, appears, comfortable. HEENT: Normal external appearance of nose and ear. Oral cavity normal EYES: Pupils equal. Conjunctiva normal. NECK: JVD not raised. Mass not palpable. RESPIRATORY: Respiratory effort increased, decreased breath sounds CARDIOVASCULAR: First and second sounds normal. No edema. ABDOMEN: Soft. Liver and spleen not palpable. No tenderness. No mass palpable. PSYCHIATRY: Alert and oriented x3. Mood and affect normal. Investigations: Chest CTA-reports pulmonary embolism Accu-Cheks noted Assessment: -Acute pulmonary embolism -Chronic esophageal stricture with recurrent irritation -Chronic fibromyalgia -Depression not otherwise specified -Primary osteoarthritis especially of the hips and knees -COPD -Chronic congestive heart failure from diastolic dysfunction EF 60% -Patient does not have pneumonia Plan: Discussed with her liters [employer] from pulmonary. Did drop a diagnosis of pneumonia. All the symptoms of felt to be from pulmonary embolism. Patient's is has no cough no white count. Also discussed with some upper caser about coverage of medications. Initially Lovenox was leg looked into. When patient agreed about the eliquis was switched over to that. In the evening he does spend a lot of time with the patient and her and answered several questions. Clinically patient doing much better. Question increase activity. Total time spent today was about 40-45 minutes with over 25 minutes of discussion
[2019-02-05] MEDS: ALPRAZolam 1 MG TAB PO SCH (05:53)
[2019-02-05 07:02] LABS: Glucose,Whole Blood 154 mg/dL (75-99)
[2019-02-05] MEDS: INSULIN ASPART (NovoLOG) 100 UNIT/ML VIAL SQ SCH ×2 (08:42→12:34)
[2019-02-05] MEDS: methylPREDNISolone SOD SUCCI 40 MG/ML 1 ML VIAL IV SCH (08:43)
[2019-02-05] MEDS: APIXABAN 5 MG TAB PO SCH (08:43)
[2019-02-05] MEDS: IPRATROPIUM-ALBUTEROL 3 ML NEB INHALATION SCH ×2 (08:47→12:09)
[2019-02-05] MEDS: FAMOTIDINE 20 MG TAB PO SCH (08:47)
[2019-02-05] MEDS: SYMBICORT 160-4.5 MCG INHALER INHALATION SCH (08:47)
[2019-02-05] MEDS: FLUoxetine HCL 20 MG CAP PO SCH (08:48)
[2019-02-05] MEDS: PANTOPRAZOLE 40 MG TABLET PO SCH (08:48)
[2019-02-05 09:23] LABS: Basophils % (A) 0 %; Eosinophils % (A) 0 %; HCT 39.1 % (34.0-46.0); HGB 11.8 gm/dL (11.4-16.0); Hypochromasia Slight; Lymphocytes # (A) 0.9 k/uL (1.0-4.8); Lymphocytes % (A) 9 %; MCH 28.6 pg (25.0-35.0); MCHC 30.2 g/dL (31.0-37.0); MCV 94.8 fL (80.0-100.0); Monocytes # (A) 0.6 k/uL (0-1.0); Monocytes % (A) 6 %; Neutrophils # (A) 7.9 k/uL (1.3-7.7); Neutrophils % (A) 84 %; Platelet Count 240 k/uL (150-450); RBC 4.13 m/uL (3.80-5.40); RDW 14.7 % (11.5-15.5); WBC 9.4 k/uL (3.8-10.6)
[2019-02-05 11:29] LABS: Glucose,Whole Blood 101 mg/dL (75-99)
[2019-02-05 12:12] VITALS: BP 119/63; RESP 17; TEMP 99.3
[2019-02-05 12:22] VITALS: PULSE 90
--- NOTE | 2019-02-05 12:52 | ECHOF ---
Referral Reason:pulmonary emboli MEASUREMENTS -------- HEIGHT: 157.5 cm WEIGHT: 93.0 kg BP: RVIDd: 2.4 cm (< 3.3) IVSd: 1.2 cm (0.6 - 1.1) LVIDd: 5.6 cm (3.9 - 5.3) LVPWd: 1.1 cm (0.6 - 1.1) IVSs: 1.6 cm LVIDs: 4.2 cm LVPWs: 1.4 cm LA Diam: 4.7 cm (2.7 - 3.8) LAESV Index (A-L): 37.11 ml/m Ao Diam: 3.0 cm (2.0 - 3.7) AV Cusp: 2.1 cm (1.5 - 2.6) LA Diam: 4.5 cm (2.7 - 3.8) MV EXCURSION: 21.518 mm (> 18.000) MV EF SLOPE: 164 mm/s (70 - 150) EPSS: 0.7 cm MV E Brian: 0.49 m/s MV DecT: 190 ms MV A Brian: 0.65 m/s MV E/A Ratio: 0.75 RAP: 5.00 mmHg RVSP: 13.29 mmHg FINDINGS -------- Sinus rhythm. This was a technically adequate study. The left ventricular size is normal. There is borderline concentric left ventricular hypertrophy. Overall left ventricular systolic function is normal with, an EF between 55 - 60 %. The right ventricle is normal in size. The left atrial size is normal. The right atrial size is normal. The aortic valve is trileaflet, and appears structurally normal. No aortic stenosis or regurgitation. Mild mitral regurgitation is present. Mild tricuspid regurgitation present. There is no evidence of pulmonary hypertension. The right v entricular systolic pressure, as measured by Doppler, is 13.29mmHg. There is no pulmonic regurgitation present. The aortic root size is normal. There is no pericardial effusion. CONCLUSIONS -------- 1. The left ventricular size is normal. 2. There is borderline concentric left ventricular hypertrophy. 3. Overall left ventricular systolic function is normal with, an EF between 55 - 60 %. 4. The right ventricle is normal in size. 5. The left atrial size is normal. 6. The right atrial size is normal. 7. The aortic valve is trileaflet, and appears structurally normal. No aortic stenosis or regurgitati on. 8. Mild mitral regurgitation is present. 9. Mild tricuspid regurgitation present. 10. There is no evidence of pulmonary hypertension. 11. The right ventricular systolic pressure, as measured by Doppler, is 13.29mmHg. 12. There is no pulmonic regurgitation present. 13. The aortic root size is normal. 14. There is no pericardial effusion. INCIDENT RESPONSE SPECIALIST: Carolina Carpio RDCS
--- NOTE | 2019-02-05 13:07 | P.PN ---
Subjective Progress Note Date: 02/05/19 Principal diagnosis: Acute bilateral pulmonary emboli This is 63-year-old white female patient who was recently hospitalized for left lower lobe pneumonia, and patient was treated with Rocephin and Zithromax, IV steroids, nebulized bronchodilators, she showed clinical and radiographic improvement, was discharged home in stable condition on 01/31/2019. Note that prior to discharge patient was having some episodes of chest pain, that she stated were similar to her esophageal spasms and patient does have history of esophageal strictures that required dietitian in the past. EKG did not show any ischemic changes, troponins were negative. Her chest pain would resolve sponta neously, she was on room air, blood cultures showed no growth. Patient does have a pulmonary nodule measuring 4 mm in the right upper lobe there is being monitored by Dr. Gar on outpatient basis. Patient was supposed to have a follow-up CAT scan of chest recently but ended up in the hospital. Other medical history is that of chronic bronchial asthma, moderately persistent, patient is a lifetime nonsmoker, obstructive sleep apnea nontolerant to CPAP, history of gastric bypass surgery, and patient claims she has a malabsorption disorder and she is concerned that she was not absorbing her oral antibiotics when she was sent home. Also has history of anxiety/PTSD and depression. Patient came in to the emergency department on 02/02/2019 with her for complaints of increased weakness, generalized feeling of malaise, low-grade fevers, she states she was very unsteady when she went home, she states she fell and injured her left elbow and her left wrist. She was taking Ceftin at home as prescribed. Apparently yesterday morning she noted a low-grade fever of 98.5 initially, which then increased to 100.5F. She was having chest pressure which was radiating through to her back, she was feeling generally unwell. Chest x- ray was completed showing subsegmental atelectatic changes, at the left lung base, follow-up chest x-ray today showed basilar subsegmental consolidation w hich appears to be improved on the lateral view, atelectasis is favored over pneumonia. Lab work showed white blood cell count of 6.6, hemoglobin of 10.8, platelet count is 2:30, INR 0.9, sodium is 140, potassium is 4.2, chloride was 109, CO2 is 24, B1 is 25 creatinine 0.61, troponin was negative 1, proBNP was 477, urinalysis was negative. Lung sounds are clear, diminished at the bases, ration has been afebrile since admission, room air pulse ox is 96%, hemodynamically stable. Her cough is dry, no congestion. CTA chest is pending. Patient is quite tearful, is concerned that she is not absorbing oral medications as well as the IV antibiotics. No shortness of breath but she does complain of some pleuritic type chest pain in her anterior chest On 02/04/2019 patient seen in follow-up on medical surgical floor. She is on IV heparin drip for multiple subsegmental pulmonary emboli. Vital signs are stable, she is on room air, no hypotension, no tachycardia, patient still complains of pleuritic-type chest pain over posterior right lower chest going across the posterior back, lung sounds are diminished, no wheezing, no rales. No hemoptysis. Today's labs have been reviewed, showing white blood cell count of 7.2, hemoglobin of 11.0, platelet count was 235. Rheumatic pulse ox 96%, patient remains on empiric antibiotics in the form of Levaquin and Zosyn. Awaiting pro-calcitonin levels. On 02/05/2019 patient seen in follow-up on medical surgical floor. She is much more upbeat today, she is in a good mood, she states she is feeling good, no shortness of breath, no chest pain, room air pulse ox is 97%. Patient did decide to take Eliquis for anticoagulation, instead of the Lovenox. He seemed first dose last night, heparin drip has been discontinued, today's labs have b een reviewed, and CBC was on only, and is unremarkable. Vital signs are stable, no acute events overnight, yesterday we discontinued the antibiotics, pro- calcitonin is negative at 0.06. No fever or chills. Objective - Vital Signs Vital signs: Vital Signs Temp 99.3 F 02/05/19 11:57 Pulse 90 02/05/19 12:21 Resp 17 02/05/19 11:57 BP 119/63 02/05/19 11:57 Pulse Ox 97 02/05/19 11:57 Intake & Output 02/04/19 02/05/19 02/05/19 18:59 06:59 18:59 Intake Total 1070 Balance 1070 Intake: Oral 1070 Other: Voiding Method Bedside Commode Toilet Toilet # Voids 2 2 - Exam GENERAL EXAM: Alert,pleasant 63-year-old white female, on room air, with a pulse ox of 96%, no acute distress, but complaining of some chest discomfort over left posterior chest across her back HEAD: Normocephalic/atraumatic. EYES: Normal reaction of pupils, equal size. Conjunctiva pink, sclera white. NOSE: Clear with pink turbinates. THROAT: No erythema or exudates. NECK: No masses, no JVD, no thyroid enlargement, no adenopathy. CHEST: No chest wall deformity. Symmetrical expansion. LUNGS: Equal air entry with no crackles, wheeze, rhonchi or dullness. CVS: Regular rate and rhythm, normal S1 and S2, no gallops, no murmurs, no rubs ABDOMEN: Soft, nontender. No hepatosplenomegaly, normal bowel sounds, no guarding or rigidity. EXTREMITIES: No clubbing, no edema, no cyanosis, 2+ pulses and upper and lower extremities. MUSCULOSKELETAL: Muscle strength and tone normal. SPINE: No scoliosis or deformity SKIN: No rashes CENTRAL NERVOUS SYSTEM: Alert and oriented -3. No focal deficits, tone is normal in all 4 extremities. PSYCHIATRIC: Alert and oriented -3. Appropriate affect. Intact judgment and insight. - Labs CBC & Chem 7: 02/05/19 08:18 02/02/19 15:39 Labs: Abnormal Lab Results - Last 24 Hours (Table) 02/04/19 02/04/19 02/04/19 Range/Units 12:35 17:24 20:36 MCHC (31.0-37.0) g/dL Neutrophils # (1.3-7.7) k/uL Lymphocytes # (1.0-4.8) k/uL APTT 72.2 H (22.0-30.0) sec POC Glucose (mg/dL) 174 H 169 H (75-99) mg/dL 02/05/19 02/05/19 02/05/19 Range/Units 07:00 08:18 11:26 MCHC 30.2 L (31.0-37.0) g/dL Neutrophils # 7.9 H (1.3-7.7) k/uL Lymphocytes # 0.9 L (1.0-4.8) k/uL APTT (22.0-30.0) sec POC Glucose (mg/dL) 154 H 101 H (75-99) mg/dL Microbiology - Last 24 Hours (Table) 02/04/19 19:45 Gram Stain - Preliminary Sputum Sputum Culture - Preliminary 02/02/19 15:39 Blood Culture - Preliminary Blood No Growth after 48 hours Assessment and Plan Plan: Assessment: #1. Acute bilateral pulmonary emboli, awaiting final reading from the radiology, seen on the CTA chest, in peripheral branches. Troponin was negative, echocardiogram is pending #2. Chest pressure and shortness of breath likely related to the above #3. Recent episode of left lower lung pneumonia, patient was hospitalized, negative cultures, chest x-ray from this admission showed atelectatic changes at the bases #4. Moderately persistent bronchial asthma #5. Lifetime nonsmoker #6. Obstructive sleep apnea intolerant to CPAP therapy #7. History of gastric bypass surgery for previous history of GI bleeding #8. 4 mm pulmonary nodule in the right upper lobe being monitored on outpatient basis #9. History of esophageal stricture with previous dietitian #10. Severe GERD #11. History of anxiety/depression/PTSD #12. Hyperlipidemia #13. History of skin cancer Plan: Patient is doing well, clinically asymptomatic, no compressive shortness of breath, no complaints of chest pain, vital signs are stable, maintaining stable oxygenation on room air, has been started on Eliquis heparin drip has been discontinued. She did opt to go with Eliquis after all. Echocardiogram results have been noted, revealing EF of 55-60%, no pulmonary hypertension, right-sided pressures of 13.2 mmHg. no acute events overnight. Patient is stable for discharge home from pulmonary perspective. She will need follow-up in outpat ient setting Dr. Chacko in one week I performed a history & physical examination of the patient and discussed their management with my nurse practitioner, Ruth Ann Soto. I reviewed the nurse practitioner's note and agree with the documented findings and plan of care. Lung sounds are positive for diminished breath sounds throughout the lung vaughn. The findings and the impression was discussed with the patient. I attest to the documentation by the nurse practitioner. Time with Patient: Less than 30
--- NOTE | 2019-02-05 20:46 | P.DS ---
Providers Date of admission: 02/02/19 17:48 Expected date of discharge: 02/05/19 Attending physician: Ap Yang Consults: 02/02/19 17:45 Consult Physician Stat Consulting Provider: Leila Salinas Consult Reason/Comments: pneumonia, failure outpatient Do you want consulting provider notified?: Yes Primary care physician: [facility] Course: Hospital course: Admitted for short of breath and near syncope. Patient was diagnosed to have pulmonary embolism. Not felt to have pneumonia.. Computed tomography scan of chest did confirm probably embolism. Initially put on IV heparin and then switched over to eliquis. Patient had several questions discussed in detail. Questions were answered. Also discussed with the today. Was present in the room. Patient is feeling quite well. Up and about symptoms greatly improved. Discussion and discharge planning more than 35 minutes Consultation: Dr. reid hackett from pulmonary Dr. Ivette Hollins from GI On examination: VITAL SIGNS: 99.3, 80, 17, 109/63, 97% room air GENERAL APPEARANCE: Propped up in bed, appears, comfortable. HEENT: Normal external appearance of nose and ear. Oral cavity normal EYES: Pupils equal. Conjunctiva normal. NECK: JVD not raised. Mass not palpable. RESPIRATORY: Respiratory effort increased, decreased breath sounds CARDIOVASCULAR: First and second sounds normal. No edema. ABDOMEN: Soft. Liver and spleen not palpable. No tenderness. No mass palpable. PSYCHIATRY: Alert and oriented x3. Mood and affect normal. Investigations: Chest CTA-reports pulmonary embolism Accu-Cheks noted 2-D echo shows EF of 55-60% Assessment: -Acute pulmonary embolism, unprovoked -Chronic esophageal stricture with recurrent dilatation -Chronic fibromyalgia -Depression not otherwise specified -Primary osteoarthritis especially of the hips and knees -COPD -Chronic congestive heart failure from diastolic dysfunction EF 55-60% % -Patient does not have pneumonia Disposition: Home Patient Condition at Discharge: Stable Plan - Discharge Summary Discharge Rx Participant: No New Discharge Prescriptions: New Apixaban [Eliquis Starter Pack (for VTE)] 0 mg PO DIRECTED 30 Days #1 pack Apixaban [Eliquis] 5 mg PO BID 30 Days #60 tab Continue FLUoxetine HCL [PROzac] 40 mg PO BID Dextroamphetamine/Amphetamine [Adderall] 20 mg PO BID ALPRAZolam [Xanax] 2 mg PO TID Omeprazole [PriLOSEC] 40 mg PO BID QUEtiapine [SEROquel] 100 mg PO HS Baclofen 10 mg PO Q8H PRN PRN Reason: Muscle Pain Ipratropium-Albuterol Nebulize [Duoneb 0.5 mg-3 mg/3 ml Soln] 3 ml INHALATION RT-QID PRN PRN Reason: Shortness Of Breath Fluticasone/Vilanterol [Breo Ellipta 200-25 Mcg INH] 1 puff INHALATION RT- DAILY Pravastatin Sodium [Pravachol] 20 mg PO HS Montelukast [Singulair] 10 mg PO HS predniSONE 40 mg PO DAILY 4 Days tab Discontinued Ibuprofen [Motrin] 800 mg PO Q8H PRN PRN Reason: Pain Ranitidine HCl 150 mg PO BID Furosemide [Lasix] 20 mg PO DAILY PRN PRN Reason: swelling Cefuroxime Axetil [Ceftin] 500 mg PO BID 5 Days #10 tab Discharge Medication List ALPRAZolam [Xanax] 2 mg PO TID 12/14/13 [History] Dextroamphetamine/Amphetamine [Adderall] 20 mg PO BID 12/14/13 [History] FLUoxetine HCL [PROzac] 40 mg PO BID 12/14/13 [History] Omeprazole [PriLOSEC] 40 mg PO BID 09/21/14 [History] Baclofen 10 mg PO Q8H PRN 01/04/16 [History] QUEtiapine [SEROquel] 100 mg PO HS 01/04/16 [History] Fluticasone/Vilanterol [Breo Ellipta 200-25 Mcg INH] 1 puff INHALATION RT-DAILY 05/15/18 [History] Ipratropium-Albuterol Nebulize [Duoneb 0.5 mg-3 mg/3 ml Soln] 3 ml INHALATION RT-QID PRN 05/15/18 [History] Pravastatin Sodium [Pravachol] 20 mg PO HS 01/01/19 [History] Montelukast [Singulair] 10 mg PO HS 01/30/19 [History] predniSONE 40 mg PO DAILY 4 Days tab 01/31/19 [Rx] Apixaban [Eliquis Starter Pack (for VTE)] 0 mg PO DIRECTED 30 Days #1 pack 02/04/19 [Rx] Apixaban [Eliquis] 5 mg PO BID 30 Days #60 tab 02/05/19 [Rx] Follow up Appointment(s)/Referral(s): Sariah Hackett MD [STAFF PHYSICIAN] - 1 Week Marty Faulkner DO [Primary Care Provider] - 02/11/19 1:00 pm [facility] Visiting Nurse, [NON-STAFF] - Activity/Diet/Wound Care/Special Instructions: Contact CM at [place] for indigent funds if needed Eliquis in [facility] pharmacy and a coupon will be applied for $0 copay on first supply. Send down ms rx form when Pt is discharged. Discharge Disposition: HOME WITH HOME HEALTH SERVICES
== END 2019-02-05 13:26 | disposition home health service (06) | DRG 176 ==
LOC: EC 14:37 → 4MS4W 17:48 → 3NMEDONC 02-03 17:00
PROVIDERS: ADMIT Hospitalist; ATTEND Hospitalist
DX: I26.99 Other pulmonary embolism without acute cor pulmonale (principal); I50.32 Chronic diastolic (congestive) heart failure; K90.9 Intestinal malabsorption, unspecified; I11.0 Hypertensive heart disease with heart failure; K22.2 Esophageal obstruction; F03.90 Unspecified dementia, unspecified severity, without behavioral disturbance, psychotic disturbance, mood disturbance, and anxiety; D64.9 Anemia, unspecified; E78.5 Hyperlipidemia, unspecified; F32.9 Major depressive disorder, single episode, unspecified; F43.10 Post-traumatic stress disorder, unspecified; J45.40 Moderate persistent asthma, uncomplicated; G25.81 Restless legs syndrome; G47.33 Obstructive sleep apnea (adult) (pediatric); I25.2 Old myocardial infarction; J44.9 Chronic obstructive pulmonary disease, unspecified; K21.9 Gastro-esophageal reflux disease without esophagitis; M79.7 Fibromyalgia; M47.9 Spondylosis, unspecified; M17.0 Bilateral primary osteoarthritis of knee; M16.0 Bilateral primary osteoarthritis of hip; F41.9 Anxiety disorder, unspecified; R91.1 Solitary pulmonary nodule; K57.90 Diverticulosis of intestine, part unspecified, without perforation or abscess without bleeding; Z79.899 Other long term (current) drug therapy; Z79.52 Long term (current) use of systemic steroids; Z88.5 Allergy status to narcotic agent; Z91.048 Other nonmedicinal substance allergy status; Z90.49 Acquired absence of other specified parts of digestive tract; Z90.710 Acquired absence of both cervix and uterus; Z98.84 Bariatric surgery status; Z87.01 Personal history of pneumonia (recurrent); Z85.828 Personal history of other malignant neoplasm of skin; Z87.442 Personal history of urinary calculi; Z80.0 Family history of malignant neoplasm of digestive organs; Z80.1 Family history of malignant neoplasm of trachea, bronchus and lung
CPT/HCPCS: 36415; 71046; 71275; 80053; 81003; 83605; 83880; 84145; 84484; 85025; 85610; 85730; 87040; 87070; 87086; 87205; 93005; 93306; 94640; 94760; 96361; 96374; 99285

== ENCOUNTER → 2019-02-17 | Outpatient (CLI) | payer MEDICARE, OTHER ==
[2019-02-17 16:16] LABS: African American GFR (CKD) 111.6 (60.0-200.0); Anion Gap 4.7 mmol/L (4.00-12.00); BUN/Creat Ratio 23.33 Ratio (12.00-20.00); Calcium 8.6 mg/dL (8.7-10.3); Carbon Dioxide 28.3 mmol/L (21.6-31.8); Magnesium 1.9 mg/dL (1.5-2.4); Non-African American GFR(CKD) 96.3 (60.0-200.0); Potassium 4.2 mmol/L (3.5-5.5)
== END ==
LOC: LABWHC1 10:28
PROVIDERS: ATTEND Nurse Practitioner Adult Health
DX: I10 Essential (primary) hypertension (principal)
CPT/HCPCS: 36415; 80048; 83735

== ENCOUNTER → 2019-03-13 | Outpatient (CLI) | payer MEDICARE, OTHER ==
[2019-03-13 12:59] LABS: HCT 34.8 % (34.0-46.0); HGB 10.8 gm/dL (11.4-16.0); Hypochromasia Moderate; MCH 29.5 pg (25.0-35.0); MCHC 31.2 g/dL (31.0-37.0); MCV 94.7 fL (80.0-100.0); Mean Platelet Volume 9.5; Platelet Count 227 k/uL (150-450); RBC 3.67 m/uL (3.80-5.40); RDW 14.9 % (11.5-15.5)
[2019-03-13 19:48] LABS: African American GFR (CKD) 106.1 (60.0-200.0); Albumin 3.8 g/dL (3.80-4.90); Albumin/Globulin Ratio 2.71 (1.60-3.17); Anion Gap 5.8 mmol/L (4.00-12.00); Calcium 8.3 mg/dL (8.7-10.3); Carbon Dioxide 27.2 mmol/L (21.6-31.8); Globulin 1.4 g/dL (1.6-3.3); Total Bilirubin 0.2 mg/dL (0.2-1.2); Total Protein 5.2 g/dL (6.2-8.2)
[2019-03-13 20:13] LABS: Cardiolipin Ab IgG Interp NEGATIVE (NEGATIVE); Cardiolipin Ab IgM Interp NEGATIVE (NEGATIVE); Cardiolipin IgA Antibody <0.5 U/mL; Cardiolipin IgM Antibody 0.4 U/mL
[2019-03-13 20:19] LABS: Iron Saturation 5.77 (12.00-45.00)
[2019-03-14 10:49] LABS: Protein C (Activity) 98 % (71-138)
[2019-03-14 10:52] LABS: Anti-Thrombin III Activity 134 % (79-109)
== END | disposition home or self-care (01) ==
LOC: LABWHC1 12:15
PROVIDERS: ATTEND Internal Medicine Medical Oncology
DX: I26.99 Other pulmonary embolism without acute cor pulmonale (principal)
CPT/HCPCS: 36415; 80053; 81240; 81241; 82607; 82728; 83540; 83550; 85027; 85300; 85303; 85306; 86147

== ENCOUNTER → 2019-03-14 | Outpatient (CLI) | payer MEDICARE, OTHER | END | disposition home or self-care (01) | LOC: LABWHC1 12:25 | PROVIDERS: ATTEND Internal Medicine Medical Oncology | DX: I26.99 Other pulmonary embolism without acute cor pulmonale (principal) | CPT/HCPCS: 81240; 81241 ==

== ENCOUNTER → 2019-04-21 | Outpatient (CLI) | payer MEDICARE, OTHER ==
[2019-04-22 01:37] LABS: African American GFR (CKD) 89.7 (60.0-200.0); Anion Gap 8.5 mmol/L (4.00-12.00); BUN/Creat Ratio 31.25 Ratio (12.00-20.00); Calcium 9.3 mg/dL (8.7-10.3); Carbon Dioxide 30.5 mmol/L (21.6-31.8); Potassium 4.4 mmol/L (3.5-5.5)
== END | disposition home or self-care (01) ==
LOC: LABWHC1 14:51
PROVIDERS: ATTEND Nurse Practitioner Adult Health
DX: I10 Essential (primary) hypertension (principal)
CPT/HCPCS: 36415; 80048; 83735

== ENCOUNTER 2019-05-05 22:59 | Emergency (ER) | payer MEDICARE, OTHER ==
--- NOTE | 2019-05-05 23:31 | ED ---
Chest Pain HPI - General Chief Complaint: Chest Pain Stated Complaint: Chest Pain, leg swelling Time Seen by Provider: 05/05/19 23:26 Source: patient Mode of arrival: wheelchair Limitations: no limitations - History of Present Illness Initial Comments: This patient is 64-year-old woman who presents to be evaluated for substernal chest pain that started approximately 3 hours ago, while she was just sitting down. The patient became concerned because she has history of pulmonary emboli. She states that she is taking her eliquis and has not missed a dose. She has not had fever or chill, cough, hemoptysis, palpitations lightheadedness or syncope. She states that she did have some cramping in her right lower leg. MD Complaint: chest pain Onset/Timin -: hour(s) Onset: during rest Pain Location: substernal Severity: severe Quality: sharp Consistency: constant Improves With: nothing Worsens With: nothing Treatments Prior to Arrival: none - Related Data Home Medications Medication Instructions Recorded Confirmed ALPRAZolam [Xanax] 2 mg PO TID 12/14/13 05/05/19 Dextroamphetamine/Amphetamine 20 mg PO BID 12/14/13 05/05/19 [Adderall] FLUoxetine HCL [PROzac] 40 mg PO BID 12/14/13 05/05/19 Omeprazole [PriLOSEC] 40 mg PO BID 09/21/14 05/05/19 Baclofen 10 mg PO Q8H PRN 01/04/16 05/05/19 QUEtiapine [SEROquel] 100 mg PO HS 01/04/16 05/05/19 Fluticasone/Vilanterol [Breo 1 puff INHALATION RT-DAILY 05/15/18 05/05/19 Ellipta 200-25 Mcg INH] Ipratropium-Albuterol Nebulize 3 ml INHALATION RT-QID PRN 05/15/18 05/05/19 [Duoneb 0.5 mg-3 mg/3 ml Soln] Pravastatin Sodium [Pravachol] 20 mg PO HS 01/01/19 05/05/19 Montelukast [Singulair] 10 mg PO HS 01/30/19 05/05/19 Cholecalciferol (Vitamin D3) 2,000 unit PO DAILY 05/05/19 05/05/19 [Vitamin D3] Cyanocobalamin [Vitamin B-12 1,000 mcg SQ GUTIERREZ 05/05/19 05/05/19 Injection] Ergocalciferol (Vitamin D2) 50,000 unit PO QMONTH 05/05/19 05/05/19 [Drisdol] Furosemide [Lasix] 40 mg PO DAILY 05/05/19 05/05/19 Ubidecarenone [Co Q-10] 400 mg PO DAILY 05/05/19 05/05/19 Previous Rx's Medication Instructions Recorded Apixaban [Eliquis] 5 mg PO BID 30 Days #60 tab 02/05/19 Allergies Allergy/AdvReac Type Severity Reaction Status Date / Time adhesive tape AdvReac Skin Verified 05/05/19 23:38 Tearing morphine AdvReac Confusion Verified 05/05/19 23:38 Review of Systems ROS Statement: Those systems with pertinent positive or pertinent negative responses have been documented in the HPI. ROS Other: All systems not noted in ROS Statement are negative. Constitutional: Denies: fever, chills Respiratory: Denies: cough, dyspnea, wheezes, hemoptysis, stridor Cardiovascular: Reports: as per HPI, chest pain. Denies: palpitations, orthopnea, edema, syncope Gastrointestinal: Denies: abdominal pain, nausea, vomiting Genitourinary: Denies: dysuria, hematuria Musculoskeletal: Denies: back pain Skin: Denies: rash Neurological: Denies: headache, weakness, numbness Psychiatric: Reports: anxiety EKG Findings - EKG Results: EKG: interpreted by CHRISTOPH BELLAMYL, sinus rhythm (Rate 69 bpm), normal axis, normal QRS, normal ST/T, no acute changes - MS, Pacemaker, Normal: Normal tracing: normal tracing Past Medical History Past Medical History: Atrial Fibrillation, Asthma, Cancer, Heart Failure, COPD, Dementia, Fibromyalgia, GERD/Reflux, GI Bleed, Hyperlipidemia, Memory Impairment, Myocardial Infarction (MS), Osteoarthritis (OA), Pneumonia, Sleep Apnea/CPAP/BIPAP Additional Past Medical History / Comment(s): Recurrent pneumonia/sepsis, R upper lung suspicious nodule-being monitored-was to have repeat cat scan 01/30/19, skin cancer with removals, pt states she had a MS in 2016 but cannot recall how it was diagnosed-no cath, hypotension, "shock" dementia d/t of daughter, esophageal strictures with ballooning, diverticular disease, anemia, arthritis in back/hips/knees, RLS, kidney stones which she has passed and had surgically removed, sinus problems, LORIE-stopped wearing device d/t intolerance, recent trauma to R foot toes. Last Myocardial Infarction Date:: 2015 History of Any Multi-Drug Resistant Organisms: None Reported Past Surgical History: Adenoidectomy, Appendectomy, Breast Surgery, Hernia Repair, Hysterectomy, Tonsillectomy Additional Past Surgical History / Comment(s): R breast lumpectomies x 2 (benign), 3 umbilical hernia repairs, lithotripsies, stomach bypass/bowel resection 2ndary to GI bleed, L chao benign tumor, multiple skin bx/skin cancer removals, EGD/dilations and colonoscopies. Past Anesthesia/Blood Transfusion Reactions: Previous Problems w/ Anesthesia Additional Past Anesthesia/Blood Transfusion Reaction / Comment(s): bp dips low Past Psychological History: Anxiety Smoking Status: Never smoker Past Alcohol Use History: None Reported Past Drug Use History: None Reported - Past Family History Brother(s) Family Medical History: Cancer Additional Family Medical History / Comment(s): Psychiatric history also runs in the patient's family. The patient's daughter has committed suicide. The patient's brother and sister and mother all of cancers. Apparently rest cancer and esophageal cancer and pancreatic cancer runs in family unable to give detailed history on that. Sister(s) Family Medical History: Cancer Father Family Medical History: Cancer Additional Family Medical History / Comment(s): Father had lung cancer. Mother Family Medical History: Cancer Additional Family Medical History / Comment(s): Mother had pancreatic cancer. General Exam Limitations: no limitations General appearance: alert, in no apparent distress Head exam: Present: atraumatic, normocephalic Respiratory exam: Present: normal lung sounds bilaterally. Absent: respiratory distress, wheezes, rales, rhonchi, stridor Cardiovascular Exam: Present: regular rate, normal rhythm, normal heart sounds. Absent: systolic murmur, diastolic murmur, rubs, gallop GI/Abdominal exam: Present: soft. Absent: distended, tenderness, guarding, rebound, rigid, mass Extremities exam: Present: normal inspection, normal capillary refill. Absent: pedal edema, calf tenderness Back exam: Present: normal inspection. Absent: CVA tenderness (R), CVA tenderness (L) Neurological exam: Present: alert Skin exam: Present: warm, dry, intact, normal color. Absent: rash Course Vital Signs 05/05/19 05/05/19 05/06/19 23:01 23:17 00:30 Temperature 97.8 F Pulse Rate 82 67 Pulse Rate [ 84 Photographer Finish ] Respiratory 18 17 Rate Blood Pressure 138/88 106/76 O2 Sat by Pulse 99 96 Oximetry 05/06/19 05/06/19 01:46 03:15 Temperature 97.9 F 98.0 F Pulse Rate 64 66 Pulse Rate [ Photographer Finish ] Respiratory 18 18 Rate Blood Pressure 116/80 107/64 O2 Sat by Pulse 97 97 Oximetry Chest Pain MDM - [facility] Patient's 64-year-old woman with onset of chest pain who was concerned that this represented a recurrence of DVT T/PE. Her workup here is negative for that and after being informed she states that her symptoms had completely resolved. She then wanted to go home to follow-up with her physician. Discussed admission for observation, patient declines. Discussed appropriate follow-up and further care as well as return parameters Disposition Clinical Impression: Chest pain Disposition: HOME SELF-CARE Condition: Good Instructions (If sedation given, give patient instructions): Chest Pain (ED) Is patient prescribed a controlled substance at d/c from ED?: No Referrals: Pily Monet MD [Primary Care Provider] - 1-2 days
[2019-05-06] MEDS ORDERED: MORPHINE SULFATE 4 MG/ML SYRINGE IV STA (00:05)
[2019-05-06 00:46] LABS: Albumin 3.6 g/dL (3.5-5.0); Calcium 8.7 mg/dL (8.4-10.2); Magnesium 1.9 mg/dL (1.6-2.3); Potassium 4.3 mmol/L (3.5-5.1); Total Bilirubin 0.3 mg/dL (0.2-1.3); Total Protein 6.1 g/dL (6.3-8.2)
[2019-05-06 00:52] LABS: Basophils % (A) 0 %; Eosinophils # (A) 0.1 k/uL (0-0.7); Eosinophils % (A) 3 %; HCT 38.2 % (34.0-46.0); HGB 12.1 gm/dL (11.4-16.0); Hypochromasia Slight; Lymphocytes % (A) 25 %; MCH 30.7 pg (25.0-35.0); MCHC 31.8 g/dL (31.0-37.0); MCV 96.6 fL (80.0-100.0); Mean Platelet Volume 7.5; Monocytes # (A) 0.3 k/uL (0-1.0); Monocytes % (A) 7 %; Neutrophils # (A) 2.6 k/uL (1.3-7.7); Neutrophils % (A) 62 %; Platelet Count 189 k/uL (150-450); RBC 3.95 m/uL (3.80-5.40); RDW 14.5 % (11.5-15.5); WBC 4.2 k/uL (3.8-10.6)
[2019-05-06 00:58] LABS: D-Dimer 0.28 mg/L FEU (<0.60); INR 0.9 (<1.2); Partial Thromboplastin Time 26.1 sec (22.0-30.0); Prothrombin Time 10.2 sec (9.0-12.0)
--- NOTE | 2019-05-06 01:22 | US ---
EXAMINATION TYPE: US venous doppler duplex LE RT DATE OF EXAM: 05/06/2019 1:00 AM COMPARISON: US 2017 CLINICAL HISTORY: R leg pain, R/O DVT. Right leg pain and swelling x 4 hours. Hx DVT, PE. Pt does josé luis bui. SIDE PERFORMED: Right TECHNIQUE: The lower extremity deep venous system is examined utilizing real time linear array sonog nya with graded compression, doppler sonography and color-flow sonography. VESSELS IMAGED: External Iliac Vein (EIV) Common Femoral Vein Deep Femoral Vein Greater Saphenous Vein * Femoral Vein Popliteal Vein Small Saph enous Vein * Proximal Calf Veins (* superficial vessels) Right Leg: No evidence of DVT in veins imaged from prox calf veins to EIV. Right calf edema. IMPRESSION: Normal exam. No evidence of deep venous thrombosis in the right leg.
[2019-05-06 01:47] VITALS: RESP 18
--- NOTE | 2019-05-06 02:10 | XR ---
EXAMINATION TYPE: XR chest 2V DATE OF EXAM: 05/06/2019 COMPARISON: 02/03/2019 HISTORY: Chest pain TECHNIQUE.: Frontal and lateral views of the chest are obtained. FINDINGS: There is no heart failure nor confluent pneumonic infiltrate. Costophrenic angles are kellen r. There is mild linear density at the lung bases. Heart size is normal. There are chest leads. Bony thorax is intact. IMPRESSION: mild subsegmental atelectasis at the lung bases probably improved compared to last exam. Normal hear t
[2019-05-06] MEDS ORDERED: DIAZEPAM 5 MG/ML 2 ML INJ IVP STA (02:56)
[2019-05-06 03:16] VITALS: BP 107/64; PULSE 66; TEMP 98
== END 2019-05-06 03:45 | disposition home or self-care (01) ==
LOC: EC 22:59
DX: R07.89 Other chest pain (principal); R25.2 Cramp and spasm; J44.9 Chronic obstructive pulmonary disease, unspecified; I48.91 Unspecified atrial fibrillation; I50.9 Heart failure, unspecified; E78.5 Hyperlipidemia, unspecified; I25.2 Old myocardial infarction; K21.9 Gastro-esophageal reflux disease without esophagitis; M46.90 Unspecified inflammatory spondylopathy, site unspecified; M16.0 Bilateral primary osteoarthritis of hip; M17.0 Bilateral primary osteoarthritis of knee; F41.9 Anxiety disorder, unspecified; Z88.5 Allergy status to narcotic agent; Z91.048 Other nonmedicinal substance allergy status; Z79.01 Long term (current) use of anticoagulants; Z79.51 Long term (current) use of inhaled steroids; Z79.899 Other long term (current) drug therapy; Z87.01 Personal history of pneumonia (recurrent); Z85.828 Personal history of other malignant neoplasm of skin; Z86.711 Personal history of pulmonary embolism; Z98.890 Other specified postprocedural states; Z53.20 Procedure and treatment not carried out because of patient's decision for unspecified reasons
CPT/HCPCS: 36415; 93005; 85379; 80053; 82150; 83690; 83735; 84484; 85025; 85610; 85730; 71046; 93971; 99285; 96374; 96375; J2270; J3360

== ENCOUNTER → 2019-11-05 | Outpatient (CLI) | payer MEDICARE, OTHER ==
--- NOTE | 2019-11-05 14:11 | XR ---
EXAMINATION TYPE: XR KUB DATE OF EXAM: 11/05/2019 Comparison: None Clinical History: 64-year-old female with gross hematuria, R31.0, N20.0 Findings: Supine imaging limited for assessment of free air. Moderate stool burden. Staple line just below the GE junction along with some surgical clips. Extensive bowel contents largely obscures the renal shado ws. Pelvic phleboliths. Impression: Moderate stool burden with bowel content largely obscuring the renal shadows. Some calcifications in the pelvis probably reflect phlebolith.
== END | disposition home or self-care (01) ==
LOC: RADXRMAIN 13:29
PROVIDERS: ATTEND Urology
DX: N28.89 Other specified disorders of kidney and ureter (principal); R31.0 Gross hematuria
CPT/HCPCS: 74018

== ENCOUNTER → 2019-12-04 | Outpatient (CLI) | payer MEDICARE, OTHER ==
--- NOTE | 2019-12-04 15:43 | US ---
EXAMINATION TYPE: US venous doppler duplex LE RT DATE OF EXAM: 12/04/2019 3:29 PM COMPARISON: NONE CLINICAL HISTORY: M25.561Pain in right knee, S82.091D, I80.9. Pain SIDE PERFORMED: Right TECHNIQUE: The lower extremity deep venous system is examined utilizing real time linear array sonog nya with graded compression, doppler sonography and color-flow sonography. VESSELS IMAGED: External Iliac Vein (EIV) Common Femoral Vein Deep Femoral Vein Greater Saphenous Vein * Femoral Vein Popliteal Vein Small Saphenous Vein * Proximal Calf Veins (* superficial vessels) Grayscale, color doppler, spectral doppler imaging performed of the deep veins of the right lower ext remity. There is normal flow, compressibility, vascular waveforms. Right Leg: Negative for DVT IMPRESSION: No sonographic evidence of deep venous thrombosis within the right lower extremity.
== END | disposition home or self-care (01) ==
LOC: RADUSWWP 14:54
PROVIDERS: ATTEND Orthopaedic Surgery
DX: M17.11 Unilateral primary osteoarthritis, right knee (principal); M79.661 Pain in right lower leg

== ENCOUNTER → 2019-12-08 | Outpatient (CLI) | payer MEDICARE, OTHER ==
--- NOTE | 2019-12-08 15:09 | CT ---
EXAMINATION TYPE: CT lower extremity RT wo con DATE OF EXAM: 12/08/2019 COMPARISON: CT right knee September 08, 2016 HISTORY: Right leg cellulitis mid calf and fracture of right patella. CT DLP: 773 mGycm Automated exposure control for dose reduction was used. FINDINGS: Motion artifact degradation through the left lower extremity on the coronal reconstructed images. Rig ht knee shows moderate tricompartment joint space loss and demineralization without acute fracture or dislocation. No significant joint effusion. Mild diffuse subcutaneous edema seen with more prominent cutaneous edema along the lateral aspect of the mid to distal leg including over lateral malleolus. No well-formed fluid collection or drainable abscess. No suspicious bony destruction or periosteal reaction. No acute fracture or dislocation in t he tibia or fibula. Mortise symmetry is preserved. Hindfoot articulations are maintained. Muscle bulk fairly well-preserved in the right leg. IMPRESSION: Mild soft tissue swelling and diffuse subcutaneous edema with more focal subcutaneous stacey ma lateral aspect mid to distal leg greatest near the lateral malleolus could reflect product of soft tissue infection and/or acute cellulitis. No well-formed drainable fluid collection or abscess ident ified. No acute displaced fracture in the right patella or leg noted.
== END | disposition home or self-care (01) ==
LOC: RADCTMAIN 14:21
PROVIDERS: ATTEND Orthopaedic Surgery
DX: M79.89 Other specified soft tissue disorders (principal); M17.11 Unilateral primary osteoarthritis, right knee

== ENCOUNTER 2019-12-09 13:49 | Inpatient (IN) | payer MEDICARE, OTHER ==
[2019-12-09] MEDS ORDERED: SODIUM CHLORIDE 0.9% 1,000 ML IV STA ×2 (14:17)
[2019-12-09] MEDS ORDERED: VANCOMYCIN IV PER PHARMACY 1 EACH MISC MISCELLANE PRN (14:18)
[2019-12-09] MEDS ORDERED: PIPERACILLIN-TAZOBACTAM 3.375 GM in SODIUM CHLORIDE 0.9% 100 ML IVPB STA (14:18)
--- NOTE | 2019-12-09 14:22 | ED ---
General Adult HPI - General Chief complaint: Extremity Injury, Lower Stated complaint: infection in legs Time Seen by Provider: 12/09/19 14:00 Source: patient, RN notes reviewed, old records reviewed Mode of arrival: ambulatory Limitations: no limitations - History of Present Illness Initial comments: Patient is a 64-year-old female who presents emergency department today with concerns for cellulitis with failure of outpatient treatment to her right leg. Patient reports that she tripped and slipped in the shower one week ago. She reports that her knee gave out on her at that time. She reports that she had been followed with Dr. Redd and she had a significant hematoma on her leg. Patient had an outpatient Doppler ultrasound on 12/03 which was negative for DVT. 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 Patient had outpatient CAT scan which was concerned for cellulitis soft tissue infection, but no focal drainable abscess at that time. She then saw Dr. eRdd today who sent her here for further evaluation and she's had Bactrim for over 24 hours with worsening spreading of the site of cellulitis. Patient reports that Dr. Redd had told her to have infectious disease on consult. Patient denies any difficulty breathing, chest pain, shortness of breath, nausea or vomiting. - Related Data Home Medications Medication Instructions Recorded Confirmed ALPRAZolam [Xanax] 2 mg PO TID 12/14/13 05/05/19 Dextroamphetamine/Amphetamine 20 mg PO BID 12/14/13 05/05/19 [Adderall] FLUoxetine HCL [PROzac] 40 mg PO BID 12/14/13 05/05/19 Omeprazole [PriLOSEC] 40 mg PO BID 09/21/14 05/05/19 Baclofen 10 mg PO Q8H PRN 01/04/16 05/05/19 QUEtiapine [SEROquel] 100 mg PO HS 01/04/16 05/05/19 Fluticasone/Vilanterol [Breo 1 puff INHALATION RT-DAILY 05/15/18 05/05/19 Ellipta 200-25 Mcg INH] Ipratropium-Albuterol Nebulize 3 ml INHALATION RT-QID PRN 05/15/18 05/05/19 [Duoneb 0.5 mg-3 mg/3 ml Soln] Pravastatin Sodium [Pravachol] 20 mg PO HS 01/01/19 05/05/19 Montelukast [Singulair] 10 mg PO HS 01/30/19 05/05/19 Cholecalciferol (Vitamin D3) 2,000 unit PO DAILY 05/05/19 05/05/19 [Vitamin D3] Cyanocobalamin [Vitamin B-12 1,000 mcg SQ GUTIERREZ 05/05/19 05/05/19 Injection] Ergocalciferol (Vitamin D2) 50,000 unit PO QMONTH 05/05/19 05/05/19 [Drisdol] Furosemide [Lasix] 40 mg PO DAILY 05/05/19 05/05/19 Ubidecarenone [Co Q-10] 400 mg PO DAILY 05/05/19 05/05/19 Previous Rx's Medication Instructions Recorded Apixaban [Eliquis] 5 mg PO BID 30 Days #60 tab 02/05/19 Allergies Allergy/AdvReac Type Severity Reaction Status Date / Time adhesive tape AdvReac Skin Verified 12/09/19 13:55 Tearing morphine AdvReac Confusion Verified 12/09/19 13:55 Review of Systems ROS Statement: Those systems with pertinent positive or pertinent negative responses have been documented in the HPI. ROS Other: All systems not noted in ROS Statement are negative. Past Medical History Past Medical History: Atrial Fibrillation, Asthma, Cancer, Heart Failure, COPD, Dementia, Fibromyalgia, GERD/Reflux, GI Bleed, Hyperlipidemia, Memory Impairment, Myocardial Infarction ([place]), Osteoarthritis (OA), Pneumonia, Sleep Apnea/CPAP/BIPAP Additional Past Medical History / Comment(s): Recurrent pneumonia/sepsis, R upper lung suspicious nodule-being monitored-was to have repeat cat scan 01/30/19, skin cancer with removals, pt states she had a [place] in 2016 but cannot recall how it was diagnosed-no cath, hypotension, "shock" dementia d/t of daughter, esophageal strictures with ballooning, diverticular disease, anemia, arthritis in back/hips/knees, RLS, kidney stones which she has passed and had surgically removed, sinus problems, OLRIE-stopped wearing device d/t intolerance, recent trauma to R foot toes. Last Myocardial Infarction Date:: 2015 History of Any Multi-Drug Resistant Organisms: None Reported Past Surgical History: Adenoidectomy, Appendectomy, Breast Surgery, Hernia Repair, Hysterectomy, Tonsillectomy Additional Past Surgical History / Comment(s): R breast lumpectomies x 2 (benign), 3 umbilical hernia repairs, lithotripsies, stomach bypass/bowel resection 2ndary to GI bleed, L chao benign tumor, multiple skin bx/skin cancer removals, EGD/dilations and colonoscopies. Past Anesthesia/Blood Transfusion Reactions: Previous Problems w/ Anesthesia Additional Past Anesthesia/Blood Transfusion Reaction / Comment(s): bp dips low Past Psychological History: Anxiety Smoking Status: Never smoker Past Alcohol Use History: None Reported Past Drug Use History: None Reported - Past Family History Brother(s) Family Medical History: Cancer Additional Family Medical History / Comment(s): Psychiatric history also runs in the patient's family. The patient's daughter has committed suicide. The patient's brother and sister and mother all of cancers. Apparently rest cancer and esophageal cancer and pancreatic cancer runs in family unable to give detailed history on that. Sister(s) Family Medical History: Cancer Father Family Medical History: Cancer Additional Family Medical History / Comment(s): Father had lung cancer. Mother Family Medical History: Cancer Additional Family Medical History / Comment(s): Mother had pancreatic cancer. General Exam - General Exam Comments Initial Comments: 64-year-old female. Alert and oriented 3. Former nurse. No acute distress. Limitations: no limitations General appearance: alert, in no apparent distress Head exam: Present: atraumatic, normocephalic, normal inspection Eye exam: Present: normal appearance, PERRL, EOMI. Absent: scleral icterus, conjunctival injection, periorbital swelling ENT exam: Present: normal exam, mucous membranes moist Neck exam: Present: normal inspection. Absent: tenderness, meningismus, lymphadenopathy Respiratory exam: Present: normal lung sounds bilaterally. Absent: respiratory distress, wheezes, rales, rhonchi, stridor Cardiovascular Exam: Present: regular rate, normal rhythm, normal heart sounds. Absent: systolic murmur, diastolic murmur, rubs, gallop, clicks GI/Abdominal exam: Present: soft, normal bowel sounds. Absent: distended, tenderness, guarding, rebound, rigid Right Knee exam: Present: normal inspection, full ROM Lower Leg exam: Present: full ROM, tenderness, swelling, ecchymosis (He has a large area of ecchymosis over the anterior chao. There is a area of warmth and erythema over the lower anterior chao that is marked from Dr. Seymour on 12/08/19. The erythema is now spreading slightly from the marked area from yesterday.). Absent: normal inspection Ankle exam: Present: normal inspection, full ROM Foot/Toe exam: Present: normal inspection, full ROM Neurovascular tendon exam: Present: no vascular compromise Back exam: Present: normal inspection Neurological exam: Present: alert Psychiatric exam: Present: normal affect, normal mood Skin exam: Present: warm, dry, intact, normal color. Absent: rash Course Vital Signs 12/09/19 13:51 Temperature 98.6 F Pulse Rate 76 Respiratory 18 Rate Blood Pressure 141/77 O2 Sat by Pulse 98 Oximetry Medical Decision Making - Medical Decision Making 64-year-old female presents presents emergency department today for concern for cellulitis on the right lower extremity after she fell in the shower week ago. She is maintained on L Alisha does have a significant contusion. She's been on Bactrim for the past over 24 hours and states that she is concerned with worsening area of cellulitis. Patient reportedly has had some fevers at home and 100.4. She had neck a computed tomography scan completed yesterday which shows soft tissue selling concern for soft tissue infection but no focal abscess was noted at that time. No fractures were noted as well. She had an ultrasound on 528 which was negative for DVT. At this time Patient was started on IV fluids, Zosyn and vancomycin for concern for resistant skin infection. With consults to Dr. Redd, as well as Dr. Muniz. I discussed the case with Dr. Zheng who discussed the case with [facility] hospitalist. - Radiology Data Radiology results: report reviewed Lower extremity CT from 12/07 shows mild soft tissue swelling and diffuse subcutaneous edema with more focal subcutaneous edema on the lateral to mid distal leg greatest near the lateral malleolus which could be a product of soft tissue infection or acute cellulitis. No well-formed drainable fluid collection or abscess is identified. No displaced fracture of the right patella or leg is noted. Disposition Clinical Impression: Cellulitis of right leg, Failure of outpatient treatment Disposition: ADMITTED IP TO THIS HOSP Condition: Stable Is patient prescribed a controlled substance at d/c from ED?: No Referrals: Pily Monet MD [Primary Care Provider] - 1-2 days Time of Disposition: 14:59
[2019-12-09] MEDS ORDERED: VANCOMYCIN 1,750 MG in SODIUM CHLORIDE 0.9% 500 ML 500 ML IVPB STA (14:23)
[2019-12-09] MEDS ORDERED: oxyCODONE-APAP 5-325MG 1 EACH TAB PO PRN (15:00)
[2019-12-09] MEDS ORDERED: NALOXONE 0.4 MG/ML 1 ML VIAL IV PRN (15:00)
[2019-12-09] MEDS ORDERED: ACETAMINOPHEN TAB 325 MG TAB PO PRN (15:00)
[2019-12-09] MEDS ORDERED: IBUPROFEN 400 MG TAB PO PRN (15:00)
[2019-12-09 15:16] LABS: Basophils % (A) 0 %; Eosinophils # (A) 0.2 k/uL (0-0.7); Eosinophils % (A) 4 %; HCT 38.7 % (34.0-46.0); HGB 11.7 gm/dL (11.4-16.0); Hypochromasia Slight; Lymphocytes % (A) 21 %; MCH 29.4 pg (25.0-35.0); MCHC 30.2 g/dL (31.0-37.0); MCV 97.3 fL (80.0-100.0); Mean Platelet Volume 9.2; Monocytes # (A) 0.3 k/uL (0-1.0); Monocytes % (A) 7 %; Neutrophils % (A) 65 %; Platelet Count 244 k/uL (150-450); RBC 3.97 m/uL (3.80-5.40); RDW 12.9 % (11.5-15.5); WBC 4.7 k/uL (3.8-10.6)
[2019-12-09 15:18] LABS: African American GFR (CKD) >90 (>60 ml/min/1.73 sqM); Anion Gap 5 mmol/L; Blood Urea Nitrogen 13 mg/dL (7-17); C Reactive Protein 13.3 mg/L (<10.0); Calcium 8.6 mg/dL (8.4-10.2); Carbon Dioxide 26 mmol/L (22-30); Chloride 109 mmol/L (98-107); Glucose 83 mg/dL (74-99); Non-African American GFR(CKD) >90 (>60 ml/min/1.73 sqM); Potassium 3.9 mmol/L (3.5-5.1); Sodium 140 mmol/L (137-145)
[2019-12-09 15:21] LABS: Partial Thromboplastin Time 24.3 sec (22.0-30.0)
--- NOTE | 2019-12-09 16:03 | P.HPIM ---
History of Present Illness 64-year-old pleasant female had a recent the injury to the right leg leading to significant bruise on the anterior chao area, started turning cellulitic with the severe pain and burning sensation of 10/10 in severity and local is of temperature. Patient was evaluated and given a dose Bactrim patient to the medication for a day in spite of taking this medication patient to select this continued to worsen because of which patient was sent to ER by her orthopedic surgeon. Patient denied any history of MRSA but had multiple hospital physicians in the past for pneumonias. Patient was started on Vanco mycin extremities is changed to ceftezolin. Review of Systems REVIEW OF SYSTEMS: CONSTITUTIONAL: No fever, no malaise, no fatigue. HEENT: No recent visual problems or hearing problems. Denied any sore throat. CARDIOVASCULAR: No chest pain, orthopnea, PND, no palpitations, no syncope. PULMONARY: No shortness of breath, no cough, no hemoptysis. GASTROINTESTINAL: No diarrhea, no nausea, no vomiting, no abdominal pain. NEUROLOGICAL: No headaches, no weakness, no numbness. HEMATOLOGICAL: Denies any bleeding or petechiae. GENITOURINARY: Denies any burning micturition, frequency, or urgency. MUSCULOSKELETAL/RHEUMATOLOGICAL: Denies any joint pain, swelling, or any muscle pain. ENDOCRINE: Denies any polyuria or polydipsia. The rest of the 14-point review of systems is negative. Past Medical History Past Medical History: Atrial Fibrillation, Asthma, Cancer, Heart Failure, COPD, Dementia, Fibromyalgia, GERD/Reflux, GI Bleed, Hyperlipidemia, Memory Impairment, Myocardial Infarction ([place]), Osteoarthritis (OA), Pneumonia, Sleep Apnea/CPAP/BIPAP Additional Past Medical History / Comment(s): Recurrent pneumonia/sepsis, R upper lung suspicious nodule-being monitored-was to have repeat cat scan 01/30/19, skin cancer with removals, pt states she had a [place] in 2016 but cannot recall how it was diagnosed-no cath, hypotension, "shock" dementia d/t of daughter, esophageal strictures with ballooning, diverticular disease, anemia, arthritis in back/hips/knees, RLS, kidney stones which she has passed and had surgically removed, sinus problems, LORIE-stopped wearing device d/t intolerance, recent trauma to R foot toes. Last Myocardial Infarction Date:: 2015 History of Any Multi-Drug Resistant Organisms: None Reported Past Surgical History: Adenoidectomy, Appendectomy, Breast Surgery, Hernia Repair, Hysterectomy, Tonsillectomy Additional Past Surgical History / Comment(s): R breast lumpectomies x 2 (benign), 3 umbilical hernia repairs, lithotripsies, stomach bypass/bowel resection 2ndary to GI bleed, L chao benign tumor, multiple skin bx/skin cancer removals, EGD/dilations and colonoscopies. Past Anesthesia/Blood Transfusion Reactions: Previous Problems w/ Anesthesia Additional Past Anesthesia/Blood Transfusion Reaction / Comment(s): bp dips low Past Psychological History: Anxiety Smoking Status: Never smoker Past Alcohol Use History: None Reported Past Drug Use History: None Reported - Past Family History Brother(s) Family Medical History: Cancer Additional Family Medical History / Comment(s): Psychiatric history also runs in the patient's family. The patient's daughter has committed suicide. The patient's brother and sister and mother all of cancers. Apparently rest cancer and esophageal cancer and pancreatic cancer runs in family unable to give detailed history on that. Sister(s) Family Medical History: Cancer Father Family Medical History: Cancer Additional Family Medical History / Comment(s): Father had lung cancer. Mother Family Medical History: Cancer Additional Family Medical History / Comment(s): Mother had pancreatic cancer. Medications and Allergies Home Medications Medication Instructions Recorded Confirmed Type ALPRAZolam [Xanax] 2 mg PO TID 12/14/13 05/05/19 History Dextroamphetamine/Amphetamine 20 mg PO BID 12/14/13 05/05/19 History [Adderall] FLUoxetine HCL [PROzac] 40 mg PO BID 12/14/13 05/05/19 History Omeprazole [PriLOSEC] 40 mg PO BID 09/21/14 05/05/19 History Baclofen 10 mg PO Q8H PRN 01/04/16 05/05/19 History QUEtiapine [SEROquel] 100 mg PO HS 01/04/16 05/05/19 History Fluticasone/Vilanterol [Breo 1 puff INHALATION RT-DAILY 05/15/18 05/05/19 History Ellipta 200-25 Mcg INH] Ipratropium-Albuterol Nebulize 3 ml INHALATION RT-QID PRN 05/15/18 05/05/19 History [Duoneb 0.5 mg-3 mg/3 ml Soln] Pravastatin Sodium [Pravachol] 20 mg PO HS 01/01/19 05/05/19 History Montelukast [Singulair] 10 mg PO HS 01/30/19 05/05/19 History Apixaban [Eliquis] 5 mg PO BID 30 Days #60 tab 02/05/19 05/05/19 Rx Cholecalciferol (Vitamin D3) 2,000 unit PO DAILY 05/05/19 05/05/19 History [Vitamin D3] Cyanocobalamin [Vitamin B-12 1,000 mcg SQ GUTIERREZ 05/05/19 05/05/19 History Injection] Ergocalciferol (Vitamin D2) 50,000 unit PO QMONTH 05/05/19 05/05/19 History [Drisdol] Furosemide [Lasix] 40 mg PO DAILY 05/05/19 05/05/19 History Ubidecarenone [Co Q-10] 400 mg PO DAILY 05/05/19 05/05/19 History Allergies Allergy/AdvReac Type Severity Reaction Status Date / Time adhesive tape AdvReac Skin Verified 12/09/19 13:55 Tearing morphine AdvReac Confusion Verified 12/09/19 13:55 Physical Exam Vitals: Vital Signs Temp Pulse Resp BP Pulse Ox 12/09/19 13:51 98.6 F 76 18 141/77 98 Intake and Output 12/09/19 12/09/19 12/09/19 06:59 14:59 22:59 Other: Weight 90.265 kg PHYSICAL EXAMINATION: GENERAL: The patient is alert and oriented x3, not in any acute distress. Well developed, well nourished. HEENT: Pupils are round and equally reacting to light. EOMI. No scleral icterus. No conjunctival pallor. Normocephalic, atraumatic. No pharyngeal erythema. No thyromegaly. CARDIOVASCULAR: S1 and S2 present. No murmurs, rubs, or gallops. PULMONARY: Chest is clear to auscultation, no wheezing or crackles. ABDOMEN: Soft, nontender, nondistended, normoactive bowel sounds. No palpable organomegaly. MUSCULOSKELETAL: No joint swelling or deformity. EXTREMITIES: No cyanosis, clubbing, or pedal edema. NEUROLOGICAL: Gross neurological examination did not reveal any focal deficits. SKIN: Patient has a right anterior chao area bruised with the variegated appearance of different colors secondary to different levels of oxidation of hemoglobin along with an area that dictation extending up with significant redness local is of temperature and tenderness to touch Results CBC & Chem 7: 12/09/19 14:14 12/09/19 14:14 Labs: Abnormal Lab Results - Last 24 Hours (Table) 12/09/19 12/09/19 Range/Units 14:14 14:14 MCHC 30.2 L (31.0-37.0) g/dL Chloride 109 H (98-107) mmol/L C-Reactive Protein 13.3 H (<10.0) mg/L Assessment and Plan Plan: Cellulitis of the left lower extremity failed outpatient therapy: Patient will be started on ceftezolin as there is no history of MRSA infections disease was consulted from ER and orthopedic surgery was consulted from ER as well and the patient will be continued on IV fluids and the patient the -Atrial fibrillation on anticoagulation which will be resumed once the m edications are verified patient continued under control medications -Polymyalgia -Gastroesophageal reflux disease -Obstructive sleep apnea and uses CPAP machine at home which she will continue -Hyperlipidemia -History recurrent pneumonias in the past
[2019-12-09] MEDS: SODIUM CHLORIDE 0.9% 1,000 ML IV SCH ×2 (18:55→23:52)
[2019-12-09] MEDS: HYDROcodone/APAP 5-325MG 1 EACH TAB PO PRN (19:45)
[2019-12-09] MEDS ORDERED: DICLOFENAC SODIUM GEL 100 GM TUBE TOPICAL PRN (19:54)
[2019-12-09] MEDS ORDERED: ALBUTEROL NEBULIZED 2.5 MG/3 ML INHALATION PRN (19:54)
[2019-12-09] MEDS ORDERED: FUROSEMIDE 20 MG TAB PO PRN (19:54)
[2019-12-09] MEDS: PANTOPRAZOLE 40 MG TABLET PO SCH (21:40)
[2019-12-09] MEDS: FLUoxetine HCL 20 MG CAP PO SCH (21:40)
[2019-12-09] MEDS: APIXABAN 5 MG TAB PO SCH (21:40)
[2019-12-09] MEDS: BACLOFEN 10 MG TAB PO SCH (21:40)
[2019-12-09] MEDS: ALPRAZolam 1 MG TAB PO PRN (21:40)
[2019-12-09] MEDS: QUEtiapine 100 MG TAB PO SCH (21:40)
[2019-12-10] MEDS ORDERED: VANCOMYCIN 1,750 MG in SODIUM CHLORIDE 0.9% 500 ML 500 ML IVPB SCH (04:00)
[2019-12-10] MEDS: FLUoxetine HCL 20 MG CAP PO SCH ×2 (08:53→20:55)
[2019-12-10] MEDS: HYDROcodone/APAP 5-325MG 1 EACH TAB PO PRN ×3 (08:54→20:58)
[2019-12-10] MEDS: ATORVASTATIN 10 MG TAB PO SCH (08:55)
[2019-12-10] MEDS: APIXABAN 5 MG TAB PO SCH ×2 (08:55→20:55)
[2019-12-10] MEDS: PANTOPRAZOLE 40 MG TABLET PO SCH ×2 (08:56→20:55)
[2019-12-10] MEDS: NON FORMULARY DRUG (Dextroamphetamine/Amphetamine [Adderall] 20 MG) PO SCH ×2 (08:56→16:00)
[2019-12-10] MEDS: SYMBICORT 160-4.5 MCG INHALER INHALATION SCH ×2 (08:59→19:19)
[2019-12-10] MEDS ORDERED: PANTOPRAZOLE 40 MG/10 ML VIAL IV SCH (09:00)
[2019-12-10] MEDS: ALPRAZolam 1 MG TAB PO PRN ×3 (09:32→20:59)
--- NOTE | 2019-12-10 10:35 | P.CNOR ---
History of Present Illness - [facility] Consult date: 12/10/19 Consult reason: other History of present illness: Patient is a 64-year-old female seen at bedside this morning in consultation for right lower leg cellulitis. She is known to Dr. Redd who is been following her as an outpatient after sustaining an injury to her right lower leg when she fell in her shower. She developed bruising and redness at the right anterior leg and after presenting as an outpatient she was sent for a Doppler ultrasound which ruled out a DVT as well as CT of the leg which did not show any significant fluid collection. She had continued with cellulitis and pain at the right lower leg where Dr. Redd recommended she be admitted for further evaluation and treatment including IV antibiotics and consultation from infectious disease. She was admitted through the emergency department yesterday with concerns for cellulitis with failure of outpatient treatment to her right leg. Patient reports that she tripped and slipped in the shower one week ago. Patient had an outpatient Doppler ultrasound on 12/03 which was negative for DVT. 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 Patient had outpatient CAT scan which was concerned for cellulitis soft tissue infection, but no focal drainable abscess at that time. she continues to have pain and tenderness at the right anterior lower leg this morning. She denies worsening of the symptoms. She denies numbness or tingling. Further review of systems is negative for difficulty breathing, chest pain, shortness of breath, nausea or vomiting, fever, chills, dizziness, slurred speech, vision changes or other. Review of Systems All systems: negative Constitutional: Denies chills, Denies fever Eyes: denies blurred vision, denies pain Ears, nose, mouth and throat: Denies headache, Denies sore throat Cardiovascular: Denies chest pain, Denies shortness of breath Respiratory: Denies cough Gastrointestinal: Denies abdominal pain, Denies diarrhea, Denies nausea, Denies vomiting Genitourinary: Denies dysuria, Denies hematuria Musculoskeletal: Denies myalgias Integumentary: Denies pruritus, Denies rash Neurological: Denies numbness, Denies weakness Psychiatric: Denies anxiety, Denies depression Endocrine: Denies fatigue, Denies weight change Past Medical History Past Medical History: Atrial Fibrillation, Asthma, Cancer, Heart Failure, COPD, Dementia, Fibromyalgia, GERD/Reflux, GI Bleed, Hyperlipidemia, Memory Impairment, Myocardial Infarction (NM), Osteoarthritis (OA), Pneumonia, Sleep Apnea/CPAP/BIPAP Additional Past Medical History / Comment(s): Recurrent pneumonia/sepsis, R upper lung suspicious nodule-being monitored-was to have repeat cat scan 01/30/19, skin cancer with removals, pt states she had a NM in 2016 but cannot recall how it was diagnosed-no cath, hypotension, "shock" dementia d/t of daughter, esophageal strictures with ballooning, diverticular disease, anemia, arthritis in back/hips/knees, RLS, kidney stones which she has passed and had surgically removed, sinus problems, LORIE-stopped wearing device d/t intolerance, recent trauma to R foot toes. Last Myocardial Infarction Date:: 2015 History of Any Multi-Drug Resistant Organisms: None Reported Past Surgical History: Adenoidectomy, Appendectomy, Breast Surgery, Hernia Repair, Hysterectomy, Tonsillectomy Additional Past Surgical History / Comment(s): R breast lumpectomies x 2 (benign), 3 umbilical hernia repairs, lithotripsies, stomach bypass/bowel resection 2ndary to GI bleed, L chao benign tumor, multiple skin bx/skin cancer removals, EGD/dilations and colonoscopies. Past Anesthesia/Blood Transfusion Reactions: Previous Problems w/ Anesthesia Additional Past Anesthesia/Blood Transfusion Reaction / Comm: bp dips low Past Psychological History: Anxiety Smoking Status: Never smoker Past Alcohol Use History: None Reported Past Drug Use History: None Reported - Past Family History Brother(s) Family Medical History: Cancer Additional Family Medical History / Comment(s): Psychiatric history also runs in the patient's family. The patient's daughter has committed suicide. The patient's brother and sister and mother all of cancers. Apparently rest cancer and esophageal cancer and pancreatic cancer runs in family unable to give detailed history on that. Sister(s) Family Medical History: Cancer Father Family Medical History: Cancer Additional Family Medical History / Comment(s): Father had lung cancer. Mother Family Medical History: Cancer Additional Family Medical History / Comment(s): Mother had pancreatic cancer. Medications and Allergies Home Medications Medication Instructions Recorded Confirmed Type ALPRAZolam [Xanax] 2 mg PO TID 12/14/13 12/09/19 History Dextroamphetamine/Amphetamine 20 mg PO BID@00,1600 12/14/13 12/09/19 History [Adderall] FLUoxetine HCL [PROzac] 40 mg PO BID 12/14/13 12/09/19 History Omeprazole [PriLOSEC] 40 mg PO BID 09/21/14 12/09/19 History QUEtiapine [SEROquel] 100 mg PO HS 01/04/16 12/09/19 History Fluticasone/Vilanterol [Breo 2 puff INHALATION RT-DAILY 05/15/18 12/09/19 History Ellipta 200-25 Mcg INH] Montelukast [Singulair] 10 mg PO HS 01/30/19 12/09/19 History Apixaban [Eliquis] 5 mg PO BID 30 Days #60 tab 02/05/19 12/09/19 Rx Cyanocobalamin [Vitamin B-12 1,000 mcg SQ GUTIERREZ 05/05/19 12/09/19 History Injection] Ergocalciferol (Vitamin D2) 50,000 unit PO QMONTH 05/05/19 12/09/19 History [Drisdol] Ubidecarenone [Co Q-10] 400 mg PO DAILY 05/05/19 12/09/19 History Albuterol Sulfate [Ventolin HFA] 2 puff INHALATION RT-Q6H PRN 12/09/19 12/09/19 History Aspirin EC [Ecotrin] 325 mg PO DAILY 12/09/19 12/09/19 History Atorvastatin [Lipitor] 10 mg PO DAILY 12/09/19 12/09/19 History Baclofen [Lioresal] 20 mg PO HS 12/09/19 12/09/19 History Calcium Carbonate [Tums] 1,500 mg PO DAILY 12/09/19 12/09/19 History Diclofenac Sodium Gel [Voltaren 2 gm TOPICAL BID PRN 12/09/19 12/09/19 History Gel] Furosemide [Lasix] 20 mg PO DAILY PRN 12/09/19 12/09/19 History Multivitamins, Thera [Multivitamin 1 tab PO DAILY 12/09/19 12/09/19 History (formulary)] QUEtiapine FUMARATE [SEROquel] 25 mg PO TID 12/09/19 12/09/19 History Allergies Allergy/AdvReac Type Severity Reaction Status Date / Time adhesive tape AdvReac Skin Verified 12/09/19 16:14 Tearing morphine AdvReac Confusion Verified 12/09/19 16:14 Physical Examination inspection of the right lower leg shows resolving ecchymoses at the proximal lower leg. There is no deformity. There is an area of cellulitis measuring approximately 6 inches in diameter at the anterior and lateral lower leg. the outline of the areas demarcated with a marking pen. There does not appear to be any progression of the erythema. There is no signs of fluid collection. The area of redness and cellulitis is tender to touch. It is warm but not ex cessively hot. There are no open wounds. Remainder of the leg is soft and nontender. Calf is soft and nontender. Neurovascular status is intact with motor and sensation throughout the right lower extremity. 2+ dorsalis pedis pulse and less than 2 second capillary refill is present. Results - Labs Labs: Abnormal Lab Results - Last 24 Hours (Table) 12/09/19 12/09/19 Range/Units 14:14 14:14 MCHC 30.2 L (31.0-37.0) g/dL Chloride 109 H (98-107) mmol/L C-Reactive Protein 13.3 H (<10.0) mg/L H & H 12/09/19 Range/Units 14:14 Hgb 11.7 (11.4-16.0) gm/dL Hct 38.7 (34.0-46.0) % Coagulation 12/09/19 Range/Units 14:14 INR 1.0 (<1.2) Result Diagrams: 12/09/19 14:14 12/09/19 14:14 Assessment and Plan (1) Cellulitis of right leg Narrative/Plan: There are no plans for immediate surgical intervention as there is no area of focal abscess or fluid collection identified. Recommend continued IV antibiotics and elevation of the right lower extremity. Consultation from infectious disease has been requested. We will continue to monitor closely and make further recommendations as appropriate. Continue medical management, DVT prophylaxis and pain control. Current Visit: Yes Status: Acute Code(s): L03.115 - CELLULITIS OF RIGHT LOWER LIMB SNOMED Code(s): 374578061 Time with Patient: Less than 30
[2019-12-10] MEDS: SODIUM CHLORIDE 0.9% 1,000 ML IV SCH ×2 (11:12→23:33)
--- NOTE | 2019-12-10 14:27 | P.PN ---
Subjective Progress Note Date: 12/10/19 Principal diagnosis: 64-year-old pleasant female had a recent the injury to the right leg leading to significant bruise on the anterior chao area, started turning cellulitic with t he severe pain and burning sensation of 10/10 in severity and local is of temperature. Patient was evaluated and given a dose Bactrim patient to the medication for a day in spite of taking this medication patient to select this continued to worsen because of which patient was sent to ER by her orthopedic surgeon. Patient denied any history of MRSA but had multiple hospital physicians in the past for pneumonias. Patient was started on Vanco mycin extremities is changed to ceftezolin. 12/10/2019 Patient seen and evaluated and follow-up and continues to have significant discomfort of the right lower extremity. Redness and swelling has improved and patient remains on cefazolin at this time. Infectious disease consulted and pending at this time. Patient was seen and evaluated by orthopedic surgery recommending no surgical intervention at this time and to continue with IV antibiotic therapy and elevate the right lower extremity while at rest. No reports of chest pain, shortness of breath, or palpitations. Patient is afebrile. Patient states she is having intermittent nausea at times but denies any vomiting at this time. Objective - Vital Signs Vital signs: Vital Signs Temp 99.5 F 12/10/19 07:00 Pulse 77 12/10/19 07:00 Resp 15 12/10/19 07:00 BP 130/73 12/10/19 07:00 Pulse Ox 97 12/10/19 07:00 Intake & Output 12/09/19 12/10/19 12/10/19 18:59 06:59 18:59 Intake Total 300 Balance 300 Weight 90.265 kg Intake: Intake, IV Titration 300 Amount Sodium Chloride 0.9% 1, 300 000 ml @ 100 mls/hr IV . Q10H STA Rx#:[id number] Other: Voiding Method Toilet # Voids 1 - Exam GENERAL: The patient is alert and oriented x3, not in any acute distress. Well developed, well nourished. HEENT: Pupils are round and equally reacting to light. EOMI. No scleral icterus. No conjunctival pallor. Normocephalic, atraumatic. No pharyngeal erythema. No thyromegaly. CARDIOVASCULAR: S1 and S2 present. No murmurs, rubs, or gallops. PULMONARY: Chest is clear to auscultation, no wheezing or crackles. ABDOMEN: Soft, nontender, nondistended, normoactive bowel sounds. No palpable organomegaly. MUSCULOSKELETAL: No joint swelling or deformity. EXTREMITIES: No cyanosis, clubbing, or pedal edema. NEUROLOGICAL: Gross neurological examination did not reveal any focal deficits. SKIN: Patient has a right anterior chao area bruised with the appearance of different colors secondary to different levels of oxidation of hemoglobin along with an area that extends up with significant redness localization of temperature and tenderness to touch. Redness and swelling has improved since yesterday. - Labs CBC & Chem 7: 12/09/19 14:14 12/09/19 14:14 Labs: Abnormal Lab Results - Last 24 Hours (Table) 12/09/19 12/09/19 Range/Units 14:14 14:14 MCHC 30.2 L (31.0-37.0) g/dL Chloride 109 H (98-107) mmol/L C-Reactive Protein 13.3 H (<10.0) mg/L Assessment and Plan Assessment: -Cellulitis of the right lower extremity failed outpatient therapy: Patient will be started on cefazolin as there is no history of MRSA. Infectious disease was consulted. Orthopedic surgery evaluated the patient recommending continued IV antibiotic therapy and elevating the lower extremity while at rest with no plans for surgical intervention at this time. Patient states she does see Dr. Redd in the outpatient setting. -Atrial fibrillation on anticoagulation of Eliquis -Polymyalgia -Gastroesophageal reflux disease -Obstructive sleep apnea and uses CPAP machine at home which she will continue -Hyperlipidemia -History recurrent pneumonias in the past
[2019-12-10] MEDS ORDERED: ONDANSETRON 4 MG/2 ML VIAL IVP PRN (18:53)
[2019-12-10] MEDS: QUEtiapine 100 MG TAB PO SCH (20:54)
[2019-12-10] MEDS: BACLOFEN 10 MG TAB PO SCH (20:55)
[2019-12-11] MEDS: SODIUM CHLORIDE 0.9% 1,000 ML IV SCH ×3 (03:59→17:06)
--- NOTE | 2019-12-11 06:51 | P.CONS ---
History of Present Illness - Reason for Consult Consult date: 12/10/19 right leg cellulitis Requesting physician: Pérez Cho - Chief Complaint right leg pain and redness x days - History of Present Illness Patient is a 64-year female who apparently tripped and slipped in the shower about a week ago patient developed a significant bruising of the right lower extremity with underlying hematoma apparently the patient did have lower extremity Doppler done on 25 November that was negative for DVT the patient has been treated outpatient setting with oral Bactrim DS however the patient was noticed to have worsening swelling redness and pain for the patient has been advised to go to the hospital for IV antibiotic therapy on arrival to the ER patient has been afebrile and no fever has been recorded since then patient did have a n ormal white count and normal creatinine avalos PCR was negative blood culture has been done patient was started on cefazolin 2 g every 8 hour and infectious disease was consulted for further management of antibiotic therapy patient has been complaining of pain to the right lower leg area to be morphine excruciating almost 10 out of 10 in severity and worse with touching of the area patient did have an area of intense erythema that has been marked in the ER however currently do not have any open wound or any drainage. Review of Systems Positive point has been mentioned in HPI rest of the systems are negative Past Medical History Past Medical History: Atrial Fibrillation, Asthma, Cancer, Heart Failure, COPD, Dementia, Fibromyalgia, GERD/Reflux, GI Bleed, Hyperlipidemia, Memory Impairment, Myocardial Infarction (MS), Osteoarthritis (OA), Pneumonia, Sleep Apnea/CPAP/BIPAP Additional Past Medical History / Comment(s): Recurrent pneumonia/sepsis, R upper lung suspicious nodule-being monitored-was to have repeat cat scan 01/30/19, skin cancer with removals, pt states she had a MS in 2016 but cannot recall how it was diagnosed-no cath, hypotension, "shock" dementia d/t of daughter, esophageal strictures with ballooning, diverticular disease, anemia, arthritis in back/hips/knees, RLS, kidney stones which she has passed and had surgically removed, sinus problems, LORIE-stopped wearing device d/t intolerance, recent trauma to R foot toes. Last Myocardial Infarction Date:: 2015 History of Any Multi-Drug Resistant Organisms: None Reported Past Surgical History: Adenoidectomy, Appendectomy, Breast Surgery, Hernia Repair, Hysterectomy, Tonsillectomy Additional Past Surgical History / Comment(s): R breast lumpectomies x 2 (benign), 3 umbilical hernia repairs, lithotripsies, stomach bypass/bowel resection 2ndary to GI bleed, L chao benign tumor, multiple skin bx/skin cancer removals, EGD/dilations and colonoscopies. Past Anesthesia/Blood Transfusion Reactions: Previous Problems w/ Anesthesia Additional Past Anesthesia/Blood Transfusion Reaction / Comm: bp dips low Past Psychological History: Anxiety Smoking Status: Never smoker Past Alcohol Use History: None Reported Past Drug Use History: None Reported - Past Family History Brother(s) Family Medical History: Cancer Additional Family Medical History / Comment(s): Psychiatric history also runs in the patient's family. The patient's daughter has committed suicide. The patient's brother and sister and mother all of cancers. Apparently rest cancer and esophageal cancer and pancreatic cancer runs in family unable to give detailed history on that. Sister(s) Family Medical History: Cancer Father Family Medical History: Cancer Additional Family Medical History / Comment(s): Father had lung cancer. Mother Family Medical History: Cancer Additional Family Medical History / Comment(s): Mother had pancreatic cancer. Medications and Allergies Home Medications Medication Instructions Recorded Confirmed Type ALPRAZolam [Xanax] 2 mg PO TID 12/14/13 12/09/19 History Dextroamphetamine/Amphetamine 20 mg PO BID@0900,1600 12/14/13 12/09/19 History [Adderall] FLUoxetine HCL [PROzac] 40 mg PO BID 12/14/13 12/09/19 History Omeprazole [PriLOSEC] 40 mg PO BID 09/21/14 12/09/19 History QUEtiapine [SEROquel] 100 mg PO HS 01/04/16 12/09/19 History Fluticasone/Vilanterol [Breo 2 puff INHALATION RT-DAILY 05/15/18 12/09/19 History Ellipta 200-25 Mcg INH] Montelukast [Singulair] 10 mg PO HS 01/30/19 12/09/19 History Apixaban [Eliquis] 5 mg PO BID 30 Days #60 tab 02/05/19 12/09/19 Rx Cyanocobalamin [Vitamin B-12 1,000 mcg SQ GUTIERREZ 05/05/19 12/09/19 History Injection] Ergocalciferol (Vitamin D2) 50,000 unit PO QMONTH 05/05/19 12/09/19 History [Drisdol] Ubidecarenone [Co Q-10] 400 mg PO DAILY 05/05/19 12/09/19 History Albuterol Sulfate [Ventolin HFA] 2 puff INHALATION RT-Q6H PRN 12/09/19 12/09/19 History Aspirin EC [Ecotrin] 325 mg PO DAILY 12/09/19 12/09/19 History Atorvastatin [Lipitor] 10 mg PO DAILY 12/09/19 12/09/19 History Baclofen [Lioresal] 20 mg PO HS 12/09/19 12/09/19 History Calcium Carbonate [Tums] 1,500 mg PO DAILY 12/09/19 12/09/19 History Diclofenac Sodium Gel [Voltaren 2 gm TOPICAL BID PRN 12/09/19 12/09/19 History Gel] Furosemide [Lasix] 20 mg PO DAILY PRN 12/09/19 12/09/19 History Multivitamins, Thera [Multivitamin 1 tab PO DAILY 12/09/19 12/09/19 History (formulary)] QUEtiapine FUMARATE [SEROquel] 25 mg PO TID 12/09/19 12/09/19 History Allergies Allergy/AdvReac Type Severity Reaction Status Date / Time adhesive tape AdvReac Skin Verified 12/09/19 16:14 Tearing morphine AdvReac Confusion Verified 12/09/19 16:14 Physical Exam Vitals: Vital Signs Temp Pulse Pulse Resp BP BP Pulse Ox 12/10/19 07:00 99.5 F 77 15 130/73 97 12/10/19 01:35 98.2 F 64 98/59 94 L 12/09/19 19:30 98.6 F 78 16 133/78 98 12/09/19 17:10 98.4 F 69 16 123/77 97 12/09/19 16:40 97.7 F 76 18 120/73 99 12/09/19 16:00 18 12/09/19 13:51 98.6 F 76 18 141/77 98 Intake and Output 12/09/19 12/10/19 12/10/19 22:59 06:59 14:59 Intake Total 300 Balance 300 Intake: Intake, IV Titration 300 Amount Sodium Chloride 0.9% 1, 300 000 ml @ 100 mls/hr IV . Q10H STA Rx#:[id number] Other: Voiding Method Toilet Toilet # Voids 1 Weight 90.265 kg GENERAL DESCRIPTION: Elderly female lying in bed, no distress. No tachypnea or accessory muscle of respiration use. HEENT: Shows Pallor , no scleral icterus. Oral mucous membrane is dry. NECK: Trachea central, no thyromegaly. LUNGS: Unlabored breathing. Clear to auscultation anteriorly. No wheeze or crackle. HEART: S1, S2, regular rate and rhythm. ABDOMEN: Soft, no tenderness , guarding or rigidity EXTREMITIES: Right leg with swelling and bruising and did have an area of redness which is warm and tender to touch no fluctuation or any drainage sKIN: No rash, no masses palpable. NEUROLOGICAL: The patient is awake, alert, oriented x3, mood and affect normal. Results CBC & Chem 7: 12/09/19 14:14 12/09/19 14:14 Labs: Abnormal Lab Results - Last 24 Hours (Table) 12/09/19 12/09/19 Range/Units 14:14 14:14 MCHC 30.2 L (31.0-37.0) g/dL Chloride 109 H (98-107) mmol/L C-Reactive Protein 13.3 H (<10.0) mg/L Assessment and Plan Assessment: patient with a recent history of slipped and fell with subsequent development of the right lower extremity hematoma and a component of cellulitis that has failed outpatient oral Bactrim DS therapy will need to cover for the gram- positive skin for the likely pathogen clinically doubt gram-negative infection and the patient seem to have shown clinical improvement with the cefazolin (1) Cellulitis of right leg Current Visit: Yes Status: Acute Code(s): L03.115 - CELLULITIS OF RIGHT LOWER LIMB SNOMED Code(s): 964095274 Plan: 1-we will continue the patient on IV cefazolin 2 g every 8 hourly is another 24- hour and if the patient continued to improve to finish therapy with oral Keflex 2-light Michael wrap to the right leg We will follow on clinical condition and cultures to further adjust medication i f needed Thank you for this consultation we will follow the patient along with you Time with Patient: Greater than 30
[2019-12-11] MEDS: NON FORMULARY DRUG (Dextroamphetamine/Amphetamine [Adderall] 20 MG) PO SCH ×2 (07:45→15:34)
[2019-12-11] MEDS: ALPRAZolam 1 MG TAB PO PRN ×3 (07:57→23:02)
[2019-12-11] MEDS: PANTOPRAZOLE 40 MG TABLET PO SCH ×2 (07:57→21:02)
[2019-12-11] MEDS: ATORVASTATIN 10 MG TAB PO SCH (07:58)
[2019-12-11] MEDS: APIXABAN 5 MG TAB PO SCH ×2 (07:58→21:01)
[2019-12-11] MEDS: HYDROcodone/APAP 5-325MG 1 EACH TAB PO PRN ×3 (07:58→21:02)
[2019-12-11] MEDS: FLUoxetine HCL 20 MG CAP PO SCH ×2 (07:58→21:01)
[2019-12-11] MEDS: SYMBICORT 160-4.5 MCG INHALER INHALATION SCH ×2 (08:03→19:47)
--- NOTE | 2019-12-11 12:42 | US ---
EXAMINATION TYPE: US venous doppler duplex LE RT DATE OF EXAM: 12/11/2019 12:30 PM COMPARISON: US 2019 CLINICAL HISTORY: leg pain r/o dvt. Right calf pain, cellulitis, history of DVT, patient on blood thi nners. SIDE PERFORMED: Right TECHNIQUE: The lower extremity deep venous system is examined utilizing real time linear array sonog nya with graded compression, doppler sonography and color-flow sonography. VESSELS IMAGED: External Iliac Vein (EIV) Common Femoral Vein Deep Femoral Vein Greater Saphenous Vein * Femoral Vein Popliteal Vein Small Saphenous Vein * Proximal Calf Veins (* superficial vessels) Right Leg: Appears negative for DVT IMPRESSION: 1. No diagnostic evidence of DVT as visualized.
--- NOTE | 2019-12-11 12:45 | P.PN ---
Subjective Progress Note Date: 12/11/19 Principal diagnosis: 64-year-old pleasant female had a recent the injury to the right leg leading to significant bruise on the anterior chao area, started turning cellulitic with t he severe pain and burning sensation of 10/10 in severity and local is of temperature. Patient was evaluated and given a dose Bactrim patient to the medication for a day in spite of taking this medication patient to select this continued to worsen because of which patient was sent to ER by her orthopedic surgeon. Patient denied any history of MRSA but had multiple hospital physicians in the past for pneumonias. Patient was started on Vanco mycin extremities is changed to ceftezolin. 12/10/2019 Patient seen and evaluated and follow-up and continues to have significant discomfort of the right lower extremity. Redness and swelling has improved and patient remains on cefazolin at this time. Infectious disease consulted and pending at this time. Patient was seen and evaluated by orthopedic surgery recommending no surgical intervention at this time and to continue with IV antibiotic therapy and elevate the right lower extremity while at rest. No reports of chest pain, shortness of breath, or palpitations. Patient is afebrile. Patient states she is having intermittent nausea at times but denies any vomiting at this time. 12/11/2019 Patient is seen and evaluated and follow-up with no acute overnight issues. Patient continues to have extreme discomfort of the right lower extremity with palpation although swelling has improved. Michael wrap noted and lower extremity is elevated. Patient is maintained on IV cefazolin and will likely transition to oral Keflex upon discharge. Infectious disease is following. Patient denies having any chest pain shortness of breath or palpitations. Patient remains afebrile. No reports of nausea or vomiting noted and patient is tolerating diet. Anticipate discharge tomorrow. Objective - Vital Signs Vital signs: Vital Signs Temp 98.4 F 12/11/19 07:36 Pulse 72 12/11/19 07:36 Resp 16 12/11/19 07:36 BP 122/76 12/11/19 07:36 Pulse Ox 97 12/11/19 07:36 Intake & Output 12/10/19 12/11/19 12/11/19 18:59 06:59 18:59 Intake Total 1140 1200 100 Balance 1140 1200 100 Intake: Intake, IV Titration 900 Amount Sodium Chloride 0.9% 1, 800 000 ml @ 100 mls/hr IV . Q10H [facility] Rx#:[id number] ceFAZolin 2 gm In Sodium 100 Chloride 0.9% 50 ml @ 100 mls/hr IVPB Q8HR [facility] Rx# :[id number] Oral 240 1200 100 Other: Voiding Method Toilet Toilet - Exam GENERAL: The patient is alert and oriented x3, not in any acute distress. Well developed, well nourished. HEENT: Pupils are round and equally reacting to light. EOMI. No scleral icterus. No conjunctival pallor. Normocephalic, atraumatic. No pharyngeal erythema. No thyromegaly. CARDIOVASCULAR: S1 and S2 present. No murmurs, rubs, or gallops. PULMONARY: Chest is clear to auscultation, no wheezing or crackles. ABDOMEN: Soft, nontender, nondistended, normoactive bowel sounds. No palpable organomegaly. MUSCULOSKELETAL: No joint swelling or deformity. EXTREMITIES: No cyanosis, clubbing, or pedal edema. NEUROLOGICAL: Gross neurological examination did not reveal any focal deficits. SKIN: Patient has a right anterior chao area bruised with the appearance of different colors secondary to different levels of oxidation of hemoglobin along with an area that extends up with significant redness localization of temperature and tenderness to touch. Redness and swelling has improved since yesterday. Light Michael wrap noted and elevated on pillows. - Labs CBC & Chem 7: 12/09/19 14:14 12/09/19 14:14 Labs: Microbiology - Last 24 Hours (Table) 12/09/19 14:14 Blood Culture - Preliminary Blood No Growth after 24 hours Assessment and Plan Assessment: -Cellulitis of the right lower extremity failed outpatient therapy: Patient will be started on cefazolin as there is no history of MRSA. Infectious disease following. Orthopedic surgery evaluated the patient recommending continued IV antibiotic therapy and elevating the lower extremity while at rest with no plans for surgical intervention at this time. Patient states she does see Dr. Redd in the outpatient setting. will likely transition to oral antibiotics upon discharge -Atrial fibrillation on anticoagulation of Eliquis -Polymyalgia -Gastroesophageal reflux disease -Obstructive sleep apnea and uses CPAP machine at home which she will continue -Hyperlipidemia -History recurrent pneumonias in the past
--- NOTE | 2019-12-11 16:48 | P.PN ---
Subjective Progress Note Date: 12/11/19 This patient is a 64-year-old female with a past medical history of COPD, atrial fibrillation, PE/DVT, hyperlipidemia that is being followed for right lower leg cellulitis and hematoma. She was originally seen by Dr. Nieves in the office about a week ago, when a CT scan of the right lower leg was, and revealed Soft tissue edema, no acute fracture, no abscess. The patient was reevaluated in the office by Dr. Loaiza today, and Dr. Urbina and the patient to the emergency department due to concerns of cellulitis. The patient was admitted under the care of internal medicine, with consult placed to orthopedic surgery and infectious disease. Patient is examined bedside today. She states her pain does feel like it has improved compared to yesterday. She is currently maintained on IV cefazolin per infectious disease. She states she is mildly short of breath, although this is her baseline. She notes she has been experiencing mild nausea, although she is tolerating her diet without issues. Patient is complaining of mild right calf pain today, and Doppler ultrasound of the right lower extremity showed no signs of DVT. She states overall feels well, she denies chest pain, fevers, chills. Vital signs stable. Objective - Vital Signs Vital signs: Vital Signs Temp 98.4 F 12/11/19 15:13 Pulse 72 12/11/19 15:13 Resp 16 12/11/19 15:13 BP 107/70 12/11/19 15:13 Pulse Ox 92 L 12/11/19 15:13 Intake & Output 12/10/19 12/11/19 12/11/19 18:59 06:59 18:59 Intake Total 1140 1200 100 Balance 1140 1200 100 Intake: Intake, IV Titration 900 Amount Sodium Chloride 0.9% 1, 800 000 ml @ 100 mls/hr IV . Q10H [facility] Rx#:[id number] ceFAZolin 2 gm In Sodium 100 Chloride 0.9% 50 ml @ 100 mls/hr IVPB Q8HR [facility] Rx# :[id number] Oral 240 1200 100 Other: Voiding Method Toilet Toilet # Voids 1 - Exam On examination, the patient is sitting up in bed in no apparent distress. She is alert and oriented 3. On inspection of the right lower leg, there is resolving ecchymosis of the proximal, anterior lower leg with mild swelling. There is an area of cellulitis to the anterior lower leg, which has receded significantly behind the demarcation with marking pen. There is no fluctuance or signs of fluid collection. There area of erythema is warm, and tender to touch. Skin is intact with no open wounds. Calf is soft, although mildly tender to palpation. Motor and sensory function appear intact of the right lower leg. The right lower extremity is warm and well perfused. - Labs CBC & Chem 7: 12/09/19 14:14 12/09/19 14:14 Labs: Microbiology - Last 24 Hours (Table) 12/09/19 14:14 Blood Culture - Preliminary Blood No Growth after 24 hours Assessment and Plan Assessment: Cellulitis, right anterior lower leg Plan: - Continue IV antibiotics per infectious disease. Continue compressive dressing with Michael wrap. Continue elevation of right lower extremity. - There is no surgical intervention planned at this time. - We will continue to follow patient closely and make recommendations as needed. - DVT prophylaxis, pain management, medical management per admitting team.
[2019-12-11] MEDS: BACLOFEN 10 MG TAB PO SCH (21:01)
[2019-12-11] MEDS: QUEtiapine 100 MG TAB PO SCH (21:08)
--- NOTE | 2019-12-11 22:47 | PN ---
PROGRESS NOTE DATE OF SERVICE: 12/11/2019 REASON FOR FOLLOWUP: Right lower extremity cellulitis. INTERVAL HISTORY: The patient is currently afebrile. She has been breathing comfortably. The patient is complaining of more pain to the right leg area, though overall redness has decreased. No chest pain, shortness of breath or cough. No abdominal pain or diarrhea. PHYSICAL EXAMINATION: Blood pressure is 107/70 with a pulse of 72, temperature 98.4. She is 92% on room air. General description is an elderly female lying in bed in no distress. RESPIRATORY SYSTEM: Unlabored breathing. Clear to auscultation anteriorly. HEART: S1, S2. Regular rate and rhythm. ABDOMEN: Soft. No tenderness. Right leg has been wrapped up in Michael. RN mentioned redness has decreased from the marker that was placed around it. No open wound or any drainage. LABS: Blood culture negative. No CBC was done today. DIAGNOSTIC IMPRESSION AND PLAN: Patient with acute right lower extremity cellulitis in this patient who did have a recent fall with significant bruise. Patient is currently on cefazolin; to continue, with overall improvement in cellulitis. Will re-evaluate the leg tomorrow. Continue with supportive care. MMODL / IJN: [id number] /
[2019-12-12] MEDS: SODIUM CHLORIDE 0.9% 1,000 ML IV SCH ×2 (03:39→12:55)
[2019-12-12] MEDS: FLUoxetine HCL 20 MG CAP PO SCH (07:51)
[2019-12-12] MEDS: PANTOPRAZOLE 40 MG TABLET PO SCH (07:51)
[2019-12-12] MEDS: ATORVASTATIN 10 MG TAB PO SCH (07:52)
[2019-12-12] MEDS: APIXABAN 5 MG TAB PO SCH (07:52)
[2019-12-12] MEDS: NON FORMULARY DRUG (Dextroamphetamine/Amphetamine [Adderall] 20 MG) PO SCH ×2 (07:53→16:08)
[2019-12-12] MEDS: ALPRAZolam 1 MG TAB PO PRN ×2 (07:59→16:26)
[2019-12-12] MEDS: HYDROcodone/APAP 5-325MG 1 EACH TAB PO PRN ×2 (07:59→14:07)
[2019-12-12] MEDS: SYMBICORT 160-4.5 MCG INHALER INHALATION SCH (08:01)
[2019-12-12 09:20] VITALS: BP 104/62; PULSE 66; RESP 18; TEMP 98.6
[2019-12-12] MEDS ORDERED: GABAPENTIN 100 MG CAP PO SCH (10:00)
[2019-12-12 11:00] LABS: Basophils % (A) 0 %; Eosinophils # (A) 0.2 k/uL (0-0.7); Eosinophils % (A) 3 %; HCT 35.6 % (34.0-46.0); HGB 11.3 gm/dL (11.4-16.0); Hypochromasia Slight; Lymphocytes # (A) 0.9 k/uL (1.0-4.8); Lymphocytes % (A) 19 %; MCH 31.3 pg (25.0-35.0); MCHC 31.7 g/dL (31.0-37.0); MCV 98.7 fL (80.0-100.0); Mean Platelet Volume 9.3; Monocytes # (A) 0.3 k/uL (0-1.0); Monocytes % (A) 7 %; Neutrophils # (A) 3.3 k/uL (1.3-7.7); Neutrophils % (A) 70 %; Platelet Count 209 k/uL (150-450); RBC 3.61 m/uL (3.80-5.40); RDW 12.9 % (11.5-15.5); WBC 4.7 k/uL (3.8-10.6)
[2019-12-12 11:14] LABS: ALT 8 U/L (4-34); AST 19 U/L (14-36); African American GFR (CKD) >90 (>60 ml/min/1.73 sqM); Alkaline Phosphatase 75 U/L (38-126); Anion Gap 4 mmol/L; Blood Urea Nitrogen 12 mg/dL (7-17); Calcium 8.3 mg/dL (8.4-10.2); Carbon Dioxide 26 mmol/L (22-30); Chloride 109 mmol/L (98-107); Glucose 72 mg/dL (74-99); Non-African American GFR(CKD) >90 (>60 ml/min/1.73 sqM); Potassium 4.3 mmol/L (3.5-5.1); Sodium 139 mmol/L (137-145); Total Bilirubin 0.2 mg/dL (0.2-1.3); Total Protein 5.6 g/dL (6.3-8.2)
[2019-12-12 12:20] LABS: Erythrocyte Sedimentation Rate 30 mm/hr (0-20)
--- NOTE | 2019-12-12 15:52 | P.PN ---
Subjective Progress Note Date: 12/12/19 Principal diagnosis: Right lower leg cellulitis, pain Patient is a 64 yo female seen at bedside this am. We are following her in regards to her right lower leg pain and cellulitis. She has been on IV antibiotics and has shown some signs of improvement. She continues to complain of pain, tenderness and warmth in the right lower leg with areas of hypersensitivity. She denies fever or chills, chest pain, shortness of breath or other new complaints. Objective - Vital Signs Vital signs: Vital Signs Temp 98.6 F 12/12/19 09:20 Pulse 66 12/12/19 09:20 Resp 18 12/12/19 09:20 BP 104/62 12/12/19 09:20 Pulse Ox 98 12/12/19 09:20 Intake & Output 12/11/19 12/12/19 12/12/19 18:59 06:59 18:59 Intake Total 700 580 200 Balance 700 580 200 Intake: Intake, IV Titration 220 Amount Sodium Chloride 0.9% 1, 120 000 ml @ 100 mls/hr IV . Q10H [facility] Rx#:[id number] ceFAZolin 2 gm In Sodium 100 Chloride 0.9% 50 ml @ 100 mls/hr IVPB Q8HR [facility] Rx# :[id number] Oral 700 360 200 Other: Voiding Method Toilet Toilet Toilet # Voids 1 1 - Exam Inspection of the right lower leg shows previous demarcated area of redness has improved some. There continues to be a focal area of erythema and swelling at the distal anterolateral aspect of the right lower leg. It is tender to light touch. Abcess or fluid collection can not be appreciated. Calf is SNT. Motor and sensation is intact throughout the right lower extremity. 2+ DP pulse and less than 2 sec cap refill is present. - Constitutional General appearance: Present: no acute distress - Labs CBC & Chem 7: 12/12/19 10:18 12/12/19 10:18 Labs: Microbiology - Last 24 Hours (Table) 12/09/19 14:14 Blood Culture - Preliminary Blood No Growth after 48 hours Assessment and Plan (1) Cellulitis of right leg Narrative/Plan: There continues to be no plans for immediate surgical intervention as there is no area of focal abscess or fluid collection identified. She continues to complain of severe pain and hotness at her right lower leg. Will order MRI to assess if surgical intervention is warranted. We will recheck labs today. Recommend continued IV antibiotics per ID and elevation of the right lower extremity. Will add gabapentin for her hypersensitive pain areas. We will continue to monitor closely and make further recommendations as appropriate. Continue medical management, DVT prophylaxis and pain control. Current Visit: Yes Status: Acute Priority: Medium Code(s): L03.115 - CELLULITIS OF RIGHT LOWER LIMB SNOMED Code(s): 066084894 Time with Patient: Less than 30
--- NOTE | 2019-12-12 16:19 | PN ---
PROGRESS NOTE DATE OF SERVICE: 12/12/2019 REASON FOR FOLLOWUP: Right lower extremity cellulitis. INTERVAL HISTORY: The patient is currently afebrile. The patient has been breathing comfortably. She has been complaining of pain, mostly to the right posterior leg area, though. The right anterior leg area swelling and redness are slightly decreased. Denies having any chest pain, shortness of breath or cough. No abdominal pain or diarrhea. PHYSICAL EXAMINATION: Blood pressure 134/62 with a pulse of 63, temperature 98.6. She is 98% on room air. General description is an elderly female lying in bed in no distress. RESPIRATORY SYSTEM: Unlabored breathing. Clear to auscultation anteriorly. HEART: S1, S2. Regular rate and rhythm. ABDOMEN: Soft. No tenderness. Right leg did have the swelling. Redness slightly decreased. Not as warm or tender to touch. LABS: Hemoglobin 11.3, white count 4.7, BUN of 12, creatinine 0.58. Blood culture has been negative. DIAGNOSTIC IMPRESSION AND PLAN: Patient with right lower extremity cellulitis with recent history of fall and underlying bruise and hematoma, persistent pain. Orthopedics has ordered MRI. Keep the patient on cefazolin. Monitor clinical course closely. MMODL / IJN: [id number] /
--- NOTE | 2019-12-13 16:58 | P.DS ---
Providers Date of admission: 12/11/19 07:52 Expected date of discharge: 12/12/19 Attending physician: Pérez Cho Consults: 12/09/19 15:00 Consult Physician Stat Consulting Provider: Reji Redd Consult Reason/Comments: R leg cellulitis, contusion Do you want consulting provider notified?: Yes Consult Physician Stat Consulting Provider: Remy Muniz Consult Reason/Comments: R leg cellulitis, failure outpatient tx Do you want consulting provider notified?: Yes Primary care physician: Pily Monet Hospital Course: Final diagnosis -Cellulitis of the right lower extremity failed outpatient therapy -Atrial fibrillation on anticoagulation of Eliquis -Polymyalgia -Gastroesophageal reflux disease -Obstructive sleep apnea and uses CPAP machine at home -Hyperlipidemia -History recurrent pneumonias in the past Discharge disposition Patient is being discharged in a stable condition with guarded prognosis to home. Patient will follow-up with Dr. Monet upon discharge. Patient also instructed to follow up with orthopedic surgery Dr. Redd in the outpatient setting. Patient will continue on oral antibiotics in the form of Keflex 500mg T ID for the next 10 days. Total time taken is 35 minutes. History of present illness This is a 64-year-old female who was recently admitted with right lower extremity hematoma and cellulitis and was being closely monitored. Patient was evaluated by infectious disease and initiated on cefazolin. Patient will continue on oral Keflex for the next 10 days. Patient recently suffered a fall and struck the right chao area causing hematoma and erythema with swelling noted to the area. Patient site significantly improved with cefazolin along with elevation and paras wraps to the right lower extremity. Patient was schedule to have an outpatient MRI of the knee for recent fall and missed the appointment. Orthopedic surgery evaluated the patient and attempted to order the MRI now but the machine was down. Patient is to reschedule the MRI in the outpatient setting. Patient was provided a walker as she is having pain with placing weight on the right lower extremity. Currently no reports of chest pain, palpitations, or shortness. Patient is afebrile. No reports of nausea or vomiting and patient is tolerating diet. On exam vital signs are stable. Temp is 98.6F, pulse is 66, respirations are 18, blood pressure 104/62, oxygen saturation is 98% on room air. Cardio S1, S2 are present. Respiratory shows clear to auscultation. Abdomen is soft and nontender. Nervous system shows no focal deficits. Please refer to medication reconciliation sheet for a list of medications. Patient Condition at Discharge: Stable Plan - Discharge Summary New Discharge Prescriptions: New Gabapentin [Neurontin] 200 mg PO BID #16 cap HYDROcodone/APAP 5-325MG [[place] 5-325] 1 each PO Q4HR PRN #12 tab PRN Reason: Moderate Pain Cephalexin [Keflex] 500 mg PO Q8HR 10 Days #30 cap Continue FLUoxetine HCL [PROzac] 40 mg PO BID Dextroamphetamine/Amphetamine [Adderall] 20 mg PO BID@0900,1600 ALPRAZolam [Xanax] 2 mg PO TID Omeprazole [PriLOSEC] 40 mg PO BID QUEtiapine [SEROquel] 100 mg PO HS Fluticasone/Vilanterol [Breo Ellipta 200-25 Mcg INH] 2 puff INHALATION RT- DAILY Montelukast [Singulair] 10 mg PO HS Apixaban [Eliquis] 5 mg PO BID 30 Days #60 tab Ergocalciferol (Vitamin D2) [Drisdol] 50,000 unit PO QMONTH Cyanocobalamin [Vitamin B-12 Injection] 1,000 mcg SQ GUTIERREZ Ubidecarenone [Co Q-10] 400 mg PO DAILY Aspirin EC [Ecotrin] 325 mg PO DAILY Furosemide [Lasix] 20 mg PO DAILY PRN PRN Reason: Edema Calcium Carbonate [Tums] 1,500 mg PO DAILY Diclofenac Sodium Gel [Voltaren Gel] 2 gm TOPICAL BID PRN PRN Reason: KNEE PAIN Multivitamins, Thera [Multivitamin (formulary)] 1 tab PO DAILY Atorvastatin [Lipitor] 10 mg PO DAILY QUEtiapine FUMARATE [SEROquel] 25 mg PO TID Albuterol Sulfate [Ventolin HFA] 2 puff INHALATION RT-Q6H PRN PRN Reason: Shortness Of Breath Baclofen [Lioresal] 20 mg PO HS Discharge Medication List ALPRAZolam [Xanax] 2 mg PO TID 12/14/13 [History] Dextroamphetamine/Amphetamine [Adderall] 20 mg PO BID@0900,1600 12/14/13 [History] FLUoxetine HCL [PROzac] 40 mg PO BID 12/14/13 [History] Omeprazole [PriLOSEC] 40 mg PO BID 09/21/14 [History] QUEtiapine [SEROquel] 100 mg PO HS 01/04/16 [History] Fluticasone/Vilanterol [Breo Ellipta 200-25 Mcg INH] 2 puff INHALATION RT-DAILY 05/15/18 [History] Montelukast [Singulair] 10 mg PO HS 01/30/19 [History] Apixaban [Eliquis] 5 mg PO BID 30 Days #60 tab 02/05/19 [Rx] Cyanocobalamin [Vitamin B-12 Injection] 1,000 mcg SQ GUTIERREZ 05/05/19 [History] Ergocalciferol (Vitamin D2) [Drisdol] 50,000 unit PO QMONTH 05/05/19 [History] Ubidecarenone [Co Q-10] 400 mg PO DAILY 05/05/19 [History] Albuterol Sulfate [Ventolin HFA] 2 puff INHALATION RT-Q6H PRN 12/09/19 [History] Aspirin EC [Ecotrin] 325 mg PO DAILY 12/09/19 [History] Atorvastatin [Lipitor] 10 mg PO DAILY 12/09/19 [History] Baclofen [Lioresal] 20 mg PO HS 12/09/19 [History] Calcium Carbonate [Tums] 1,500 mg PO DAILY 12/09/19 [History] Diclofenac Sodium Gel [Voltaren Gel] 2 gm TOPICAL BID PRN 12/09/19 [History] Furosemide [Lasix] 20 mg PO DAILY PRN 12/09/19 [History] Multivitamins, Thera [Multivitamin (formulary)] 1 tab PO DAILY 12/09/19 [History] QUEtiapine FUMARATE [SEROquel] 25 mg PO TID 12/09/19 [History] Cephalexin [Keflex] 500 mg PO Q8HR 10 Days #30 cap 12/12/19 [Rx] Gabapentin [Neurontin] 200 mg PO BID #16 cap 12/12/19 [Rx] HYDROcodone/APAP 5-325MG [[place] 5-325] 1 each PO Q4HR PRN #12 tab 12/12/19 [Rx] Follow up Appointment(s)/Referral(s): [facility] [NON-STAFF] - As Needed Reji Redd MD [STAFF PHYSICIAN] - 12/19/19 9:00 am (Patient may follow-up with Dr. Redd at [facility] in 1-2 weeks following discharge. Please wear a face mask for appointment and only patient allowed in the building. ) Pily Monet MD [Primary Care Provider] - 12/16/19 9:20 am (Please wear mask to appointment) [facility] Nurse, [NON-STAFF] - 1-2 Days Patient Instructions/Handouts: Cephalexin (By mouth), Gabapentin (By mouth), Hydrocodone (By mouth), Cellulitis (DC) Activity/Diet/Wound Care/Special Instructions: Activity Limited until follow-up Patient to reschedule MRI that she had previously scheduled outpatient for today of the right lower extremity and knee. Continue current diet Continue with home care Continue antibiotics until finished Follow-up with primary care provider upon discharge Follow-up with orthopedic surgery in the outpatient setting Discharge Disposition: HOME WITH HOME HEALTH SERVICES
== END 2019-12-12 17:53 | disposition home health service (06) | DRG 603 ==
LOC: EC 13:49 → 4SSUR 14:52 → 1SOBS 12-10 15:57 → OBSVTOIN 12-11 07:52
PROVIDERS: ADMIT Internal Medicine; ATTEND Internal Medicine
DX: L03.115 Cellulitis of right lower limb (principal); I50.9 Heart failure, unspecified; F03.90 Unspecified dementia, unspecified severity, without behavioral disturbance, psychotic disturbance, mood disturbance, and anxiety; F41.9 Anxiety disorder, unspecified; E78.5 Hyperlipidemia, unspecified; G47.33 Obstructive sleep apnea (adult) (pediatric); I25.2 Old myocardial infarction; I48.91 Unspecified atrial fibrillation; J44.9 Chronic obstructive pulmonary disease, unspecified; K21.9 Gastro-esophageal reflux disease without esophagitis; M79.7 Fibromyalgia; M35.3 Polymyalgia rheumatica; S80.11XA Contusion of right lower leg, initial encounter; R11.0 Nausea; Z11.59 Encounter for screening for other viral diseases; K57.90 Diverticulosis of intestine, part unspecified, without perforation or abscess without bleeding; R91.1 Solitary pulmonary nodule; M47.9 Spondylosis, unspecified; M17.0 Bilateral primary osteoarthritis of knee; M16.0 Bilateral primary osteoarthritis of hip; Z79.01 Long term (current) use of anticoagulants; Z79.82 Long term (current) use of aspirin; Z79.899 Other long term (current) drug therapy; Z85.828 Personal history of other malignant neoplasm of skin; Z86.711 Personal history of pulmonary embolism; Z86.718 Personal history of other venous thrombosis and embolism; Z87.01 Personal history of pneumonia (recurrent); Z90.710 Acquired absence of both cervix and uterus; Z87.442 Personal history of urinary calculi; Z88.5 Allergy status to narcotic agent; Z91.048 Other nonmedicinal substance allergy status; Z90.49 Acquired absence of other specified parts of digestive tract; Z80.0 Family history of malignant neoplasm of digestive organs; Z80.1 Family history of malignant neoplasm of trachea, bronchus and lung; Z85.3 Personal history of malignant neoplasm of breast; Z85.07 Personal history of malignant neoplasm of pancreas
CPT/HCPCS: 36415; 80048; 80053; 83605; 85025; 85610; 85652; 85730; 86140; 87040; 94640; 96365; 96367; 99284

== ENCOUNTER → 2020-02-26 | Outpatient (CLI) | payer MEDICARE, OTHER ==
--- NOTE | 2020-02-26 16:10 | MR ---
EXAMINATION TYPE: MR knee RT wo con DATE OF EXAM: 02/26/2020 COMPARISON: CT right knee December 08, 2019 HISTORY: pain in rt knee, primary osteoarthritis, derangement medial meniscus due to old tear or inju ry, bursopathies, and patellar stress fracture all her order. TECHNIQUE: Multiplanar, multisequence images of the knee is performed without IV contrast. FINDINGS: Exam noted suboptimal due to patient's large body habitus, inhomogeneous fat saturation is noted. MEDIAL MENISCUS: Anterior horn is intact without tear. Posterior horn shows oblique increased signal extends to inferior articular surface. LATERAL MENISCUS: Posterior horn is intact without tear. Anterior horn shows horizontal and irregular increased signal with truncation along the anterior margin. CRUCIATE LIGAMENTS: The anterior and posterior cruciate ligaments are intact and unremarkable. COLLATERAL LIGAMENTS: The medial collateral ligament and lateral collateral ligament complex are inta ct and unremarkable. EXTENSOR MECHANISM: Visualized quadriceps and patellar tendons are intact. EFFUSION: No significant suprapatellar joint effusion. POPLITEAL CYST: Tiny popliteal/hayward cyst axial image 19. TRICOMPARTMENT SPACES: Moderate to severe narrowing patellofemoral compartment with mild spurring. Mi ld to moderate narrowing with mild spurring medial and lateral tibiofemoral compartments. CARTILAGE: Some fissuring and cartilaginous loss along the posterior patellar pole. No full thickness cartilaginous loss seen. BONE MARROW SIGNAL: Some heterogeneity consistent with red marrow reconversion. No suspicious edema. OTHER: No additional significant abnormality is appreciated. IMPRESSION: 1. Full-thickness tear anterior horn of lateral meniscus. 2. Oblique full-thickness tear posterior horn medial meniscus. 3. Moderate to borderline advanced patellofemoral joint arthropathy as detailed above. 4. More mild to moderate degenerative changes medial greater than lateral tibiofemoral compartments a s detailed above. 5. Tiny popliteal cyst.
== END | disposition home or self-care (01) ==
LOC: RADMRIMAIN 14:16
PROVIDERS: ATTEND Orthopaedic Surgery
DX: S83.241D Other tear of medial meniscus, current injury, right knee, subsequent encounter (principal); S83.281D Other tear of lateral meniscus, current injury, right knee, subsequent encounter; M17.11 Unilateral primary osteoarthritis, right knee; M71.21 Synovial cyst of popliteal space [Baker], right knee; Z86.718 Personal history of other venous thrombosis and embolism

== ENCOUNTER → 2020-03-19 | Outpatient (CLI) | payer MEDICARE, OTHER ==
[2020-03-19 15:43] LABS: HCT 40.5 % (34.0-46.0); HGB 12.1 gm/dL (11.4-16.0); Hypochromasia Marked; MCH 29.2 pg (25.0-35.0); MCHC 29.7 g/dL (31.0-37.0); MCV 98.2 fL (80.0-100.0); Mean Platelet Volume 8.8; Platelet Count 240 k/uL (150-450); RBC 4.13 m/uL (3.80-5.40); WBC 4.2 k/uL (3.8-10.6)
== END | disposition home or self-care (01) ==
LOC: LABWHC1 14:45
PROVIDERS: ATTEND Family Medicine
DX: D51.0 Vitamin B12 deficiency anemia due to intrinsic factor deficiency (principal)
CPT/HCPCS: 36415; 82607; 85027

== ENCOUNTER 2020-12-10 17:46 | Emergency (ER) | payer MEDICARE, OTHER ==
--- NOTE | 2020-12-10 19:16 | ED ---
General Adult HPI - General Chief complaint: Fall Stated complaint: fall, rib/foot pain Time Seen by Provider: 12/10/20 18:55 Source: patient Mode of arrival: wheelchair Limitations: no limitations - Related Data Home Medications Medication Instructions Recorded Confirmed ALPRAZolam [Xanax] 2 mg PO TID 12/14/13 12/09/19 Dextroamphetamine/Amphetamine 20 mg PO BID@0900,1600 12/14/13 12/09/19 [Adderall] FLUoxetine HCL [PROzac] 40 mg PO BID 12/14/13 12/09/19 Omeprazole [PriLOSEC] 40 mg PO BID 09/21/14 12/09/19 QUEtiapine [SEROquel] 100 mg PO HS 01/04/16 12/09/19 Fluticasone/Vilanterol [Breo 2 puff INHALATION RT-DAILY 05/15/18 12/09/19 Ellipta 200-25 Mcg INH] Montelukast [Singulair] 10 mg PO HS 01/30/19 12/09/19 Cyanocobalamin [Vitamin B-12 1,000 mcg SQ GUTIERREZ 05/05/19 12/09/19 Injection] Ergocalciferol (Vitamin D2) 50,000 unit PO QMONTH 05/05/19 12/09/19 [Drisdol (50,000 Iu)] Ubidecarenone [Co Q-10] 400 mg PO DAILY 05/05/19 12/09/19 Albuterol Sulfate [Ventolin HFA] 2 puff INHALATION RT-Q6H PRN 12/09/19 12/09/19 Aspirin EC [Ecotrin] 325 mg PO DAILY 12/09/19 12/09/19 Atorvastatin [Lipitor] 10 mg PO DAILY 12/09/19 12/09/19 Baclofen [Lioresal] 20 mg PO HS 12/09/19 12/09/19 Calcium Carbonate [Tums] 1,500 mg PO DAILY 12/09/19 12/09/19 Diclofenac Sodium Gel [Voltaren 2 gm TOPICAL BID PRN 12/09/19 12/09/19 Gel] Furosemide [Lasix] 20 mg PO DAILY PRN 12/09/19 12/09/19 Multivitamins, Thera [Multivitamin 1 tab PO DAILY 12/09/19 12/09/19 (formulary)] QUEtiapine FUMARATE [SEROquel] 25 mg PO TID 12/09/19 12/09/19 Previous Rx's Medication Instructions Recorded Apixaban [Eliquis] 5 mg PO BID 30 Days #60 tab 02/05/19 Cephalexin [Keflex] 500 mg PO Q8HR 10 Days #30 cap 12/12/19 Gabapentin [Neurontin] 200 mg PO BID #16 cap 12/12/19 HYDROcodone/APAP 5-325MG [[place] 1 each PO Q4HR PRN #12 tab 12/12/19 5-325] Allergies Allergy/AdvReac Type Severity Reaction Status Date / Time adhesive tape AdvReac Skin Verified 12/10/20 18:38 Tearing morphine AdvReac Confusion Verified 12/10/20 18:38 Review of Systems ROS Statement: Those systems with pertinent positive or pertinent negative responses have been documented in the HPI. ROS Other: All systems not noted in ROS Statement are negative. Past Medical History Past Medical History: Atrial Fibrillation, Asthma, Cancer, Heart Failure, COPD, Dementia, Fibromyalgia, GERD/Reflux, GI Bleed, Hyperlipidemia, Memory Impairment, Myocardial Infarction ([place]), Osteoarthritis (OA), Pneumonia, Sleep Apnea/CPAP/BIPAP Additional Past Medical History / Comment(s): Recurrent pneumonia/sepsis, R upper lung suspicious nodule-being monitored-was to have repeat cat scan 01/30/19, skin cancer with removals, pt states she had a [place] in 2016 but cannot recall how it was diagnosed-no cath, hypotension, "shock" dementia d/t of daughter, esophageal strictures with ballooning, diverticular disease, anemia, arthritis in back/hips/knees, RLS, kidney stones which she has passed and had surgically removed, sinus problems, LORIE-stopped wearing device d/t intolerance, recent trauma to R foot toes. Last Myocardial Infarction Date:: 2016 History of Any Multi-Drug Resistant Organisms: None Reported Past Surgical History: Adenoidectomy, Appendectomy, Breast Surgery, Hernia Repair, Hysterectomy, Joint Replacement, Tonsillectomy Additional Past Surgical History / Comment(s): R breast lumpectomies x 2 (benign), 3 umbilical hernia repairs, lithotripsies, stomach bypass/bowel resection 2ndary to GI bleed, L chao benign tumor, multiple skin bx/skin cancer removals, EGD/dilations and colonoscopies. rt hip replacement- with drainage of abscess Past Anesthesia/Blood Transfusion Reactions: Previous Problems w/ Anesthesia Additional Past Anesthesia/Blood Transfusion Reaction / Comment(s): bp dips low Past Psychological History: Anxiety Smoking Status: Never smoker Past Alcohol Use History: None Reported Past Drug Use History: None Reported - Past Family History Brother(s) Family Medical History: Cancer Additional Family Medical History / Comment(s): Psychiatric history also runs in the patient's family. The patient's daughter has committed suicide. The patient's brother and sister and mother all of cancers. Apparently rest cancer and esophageal cancer and pancreatic cancer runs in family unable to give detailed history on that. Sister(s) Family Medical History: Cancer Father Family Medical History: Cancer Additional Family Medical History / Comment(s): Father had lung cancer. Mother Family Medical History: Cancer Additional Family Medical History / Comment(s): Mother had pancreatic cancer. General Exam Limitations: no limitations Course Vital Signs 12/10/20 18:32 Temperature 97.5 F L Pulse Rate 71 Respiratory 22 Rate Blood Pressure 128/82 O2 Sat by Pulse 95 Oximetry - Reevaluation(s) Reevaluation #1: 12/10/20 19:16 Patient still not in room Disposition Referrals: Pily Monet MD [Primary Care Provider] - 1-2 days
--- NOTE | 2020-12-10 20:27 | ED ---
General Adult HPI - General Chief complaint: Fall Stated complaint: fall, rib/foot pain Time Seen by Provider: 12/10/20 18:55 Source: patient Mode of arrival: wheelchair Limitations: no limitations - History of Present Illness Initial comments: Patient presents to the ED (patient states that she drove herself here) stating that she fell about 3-1/2 hours ago while pulling weeds out of her garden. Patient states that she is uncertain exactly what caused her to fall, but she states that she landed on her right side, and she states that she has had right lower rib pain radiating around to the right side of her back since falling. Patient is also complaining of having mild pain to the dorsum of her left foot. Patient denies head trauma or injury, LOC, headache, focal numbness/weakness/neuro deficit, neck/back/upper extremity/hip pain, dyspnea, palpitations, syncope, abdominal pain, nausea or vomiting, or any other symptoms or complaints. - Related Data Home Medications Medication Instructions Recorded Confirmed ALPRAZolam [Xanax] 2 mg PO TID 12/14/13 12/10/20 Dextroamphetamine/Amphetamine 20 mg PO BID@0900,1600 12/14/13 12/10/20 [Adderall] FLUoxetine HCL [PROzac] 40 mg PO BID 12/14/13 12/10/20 QUEtiapine [SEROquel] 100 mg PO HS 01/04/16 12/10/20 Fluticasone/Vilanterol [Breo 1 puff INHALATION RT-DAILY 05/15/18 12/10/20 Ellipta 200-25 Mcg INH] Montelukast [Singulair] 10 mg PO HS 01/30/19 12/10/20 Cyanocobalamin [Vitamin B-12 1,000 mcg SQ GUTIERREZ 05/05/19 12/10/20 Injection] Ubidecarenone [Co Q-10] 400 mg PO DAILY 05/05/19 12/10/20 Albuterol Sulfate [Ventolin HFA] 2 puff INHALATION RT-Q6H PRN 12/09/19 12/10/20 Atorvastatin [Lipitor] 10 mg PO DAILY 12/09/19 12/10/20 Furosemide [Lasix] 20 mg PO DAILY PRN 12/09/19 12/10/20 Multivitamins, Thera [Multivitamin 1 tab PO DAILY 12/09/19 12/10/20 (formulary)] QUEtiapine FUMARATE [SEROquel] 25 mg PO TID 12/09/19 12/10/20 Baclofen [Lioresal] 10 mg PO DAILY PRN 12/10/20 12/10/20 Cholecalciferol [Vitamin D3 (25 50 mcg PO DAILY 12/10/20 12/10/20 Mcg = 1000 Iu)] Ipratropium-Albuterol Nebulize 3 ml INHALATION RT-QID PRN 12/10/20 12/10/20 [Duoneb 0.5 mg-3 mg/3 ml Soln] Omeprazole 20 mg PO BID 12/10/20 12/10/20 Ondansetron [Zofran] 4 mg PO Q8H PRN 12/10/20 12/10/20 lamoTRIgine [LaMICtal] 50 mg PO DAILY@1200 12/10/20 12/10/20 Previous Rx's Medication Instructions Recorded Apixaban [Eliquis] 5 mg PO BID 30 Days #60 tab 02/05/19 Allergies Allergy/AdvReac Type Severity Reaction Status Date / Time adhesive tape AdvReac Skin Verified 12/10/20 21:48 Tearing morphine AdvReac Confusion Verified 12/10/20 21:48 Review of Systems ROS Statement: Those systems with pertinent positive or pertinent negative responses have been documented in the HPI. ROS Other: All systems not noted in ROS Statement are negative. Past Medical History Past Medical History: Atrial Fibrillation, Asthma, Cancer, Heart Failure, COPD, Dementia, Fibromyalgia, GERD/Reflux, GI Bleed, Hyperlipidemia, Memory Impairment, Myocardial Infarction ([place]), Osteoarthritis ([place]), Pneumonia, Sleep Apnea/CPAP/BIPAP Additional Past Medical History / Comment(s): Recurrent pneumonia/sepsis, R upper lung suspicious nodule-being monitored-was to have repeat cat scan 01/30/19, skin cancer with removals, pt states she had a [place] in 2016 but cannot recall how it was diagnosed-no cath, hypotension, "shock" dementia d/t of daughter, esophageal strictures with ballooning, diverticular disease, anemia, arthritis in back/hips/knees, RLS, kidney stones which she has passed and had surgically removed, sinus problems, LORIE-stopped wearing device d/t intolerance, recent trauma to R foot toes. Last Myocardial Infarction Date:: 2015 History of Any Multi-Drug Resistant Organisms: None Reported Past Surgical History: Adenoidectomy, Appendectomy, Breast Surgery, Hernia Repair, Hysterectomy, Joint Replacement, Tonsillectomy Additional Past Surgical History / Comment(s): R breast lumpectomies x 2 (benign), 3 umbilical hernia repairs, lithotripsies, stomach bypass/bowel resection 2ndary to GI bleed, L chao benign tumor, multiple skin bx/skin cancer removals, EGD/dilations and colonoscopies. rt hip replacement- with drainage of abscess Past Anesthesia/Blood Transfusion Reactions: Previous Problems w/ Anesthesia Additional Past Anesthesia/Blood Transfusion Reaction / Comment(s): bp dips low Past Psychological History: Anxiety Smoking Status: Never smoker Past Alcohol Use History: None Reported Past Drug Use History: None Reported - Past Family History Brother(s) Family Medical History: Cancer Additional Family Medical History / Comment(s): Psychiatric history also runs in the patient's family. The patient's daughter has committed suicide. The patient's brother and sister and mother all of cancers. Apparently rest cancer and esophageal cancer and pancreatic cancer runs in family unable to give detailed history on that. Sister(s) Family Medical History: Cancer Father Family Medical History: Cancer Additional Family Medical History / Comment(s): Father had lung cancer. Mother Family Medical History: Cancer Additional Family Medical History / Comment(s): Mother had pancreatic cancer. General Exam Limitations: no limitations General appearance: alert, in no apparent distress Head exam: Present: atraumatic, normocephalic Eye exam: Present: normal appearance, EOMI ENT exam: Present: mucous membranes moist Neck exam: Present: normal inspection, full ROM, other (Trachea is in midline). Absent: tenderness Respiratory exam: Present: normal lung sounds bilaterally, other (Right inferolateral chest wall tenderness; no chest wall crepitation or deformity is appreciated). Absent: respiratory distress, wheezes, rales, rhonchi, stridor Cardiovascular Exam: Present: regular rate, normal rhythm, normal heart sounds, other (Normal radial pulses bilaterally) GI/Abdominal exam: Present: soft, other (Moderate right upper quadrant abdominal tenderness). Absent: distended, guarding, rebound Extremities exam: Present: full ROM, other (Mild tenderness is noted to the dorsum of the patient's left foot; no left foot swelling or ecchymosis is noted; patient has full range of motion at bilateral hips, knees and ankles without any discomfort; pelvis is stable and nontender). Absent: pedal edema, calf tenderness Back exam: Present: other (Right thoracic tenderness) Neurological exam: Present: alert, oriented X3, CN II-XII intact. Absent: motor sensory deficit Psychiatric exam: Present: normal affect, normal mood Skin exam: Present: warm, dry, intact, normal color Course Vital Signs 12/10/20 12/10/20 12/10/20 18:32 20:04 21:29 Temperature 97.5 F L Pulse Rate 71 73 89 Respiratory 22 16 16 Rate Blood Pressure 128/82 114/78 O2 Sat by Pulse 95 97 99 Oximetry - Reevaluation(s) Reevaluation #1: 12/10/20 22:55 Patient denies development of any new pain or symptoms while in the ED. Patient remains alert and breathing comfortably with a normal room air oxygen saturation. Patient and daughter are aware of the patient's test results, and patient feels comfortable going home with her daughter at this time. Patient was counseled about chest wall/rib contusions and foot injuries. Patient was clearly explained return and follow-up instructions. Patient was instructed to follow up closely with her primary care provider. Patient feels comfortable with this plan. EKG Findings - EKG Comments: EKG Findings:: Normal sinus rhythm, ventricular rate of 72 bpm, normal [place] and QRS intervals, normal QT interval, leftward axis, no ST or T-wave abnormality Medical Decision Making - Medical Decision Making Patient's labs are fairly unremarkable. Patient's imaging studies are negative for any acute traumatic injury. I suspect that the patient's injuries are likely secondary to contusions. Will discharge patient home with her daughter at this time. - Lab Data Result diagrams: 12/10/20 21:19 12/10/20 21: Lab Results 12/10/20 12/10/20 12/10/20 Range/Units 21:19 21:19 21: WBC 5.4 (3.8-10.6) k/uL RBC 4.00 (3.80-5.40) m/uL Hgb 12.6 (11.4-16.0) gm/dL Hct 38.4 (34.0-46.0) % MCV 96.1 (80.0-100.0) fL MCH 31.5 (25.0-35.0) pg MCHC 32.8 (31.0-37.0) g/dL RDW 13.4 (11.5-15.5) % Plt Count 219 (150-450) k/uL MPV 8.5 Neutrophils % 68 % Lymphocytes % 20 % Monocytes % 7 % Eosinophils % 4 % Basophils % 0 % Neutrophils # 3.7 (1.3-7.7) k/uL Lymphocytes # 1.1 (1.0-4.8) k/uL Monocytes # 0.4 (0-1.0) k/uL Eosinophils # 0.2 (0-0.7) k/uL Basophils # 0.0 (0-0.2) k/uL Sodium 140 (137-145) mmol/L Potassium 3.8 (3.5-5.1) mmol/L Chloride 110 H (98-107) mmol/L Carbon Dioxide 26 (22-30) mmol/L Anion Gap 4 mmol/L BUN 18 H (7-17) mg/dL Creatinine 0.53 (0.52-1.04) mg/dL Est GFR (CKD-EPI)AfAm >90 (>60 ml/min/1.73 sqM) Est GFR (CKD-EPI)NonAf >90 (>60 ml/min/1.73 sqM) Glucose 98 (74-99) mg/dL Calcium 8.9 (8.4-10.2) mg/dL Total Bilirubin 0.3 (0.2-1.3) mg/dL AST 24 (14-36) U/L ALT 18 (4-34) U/L Alkaline Phosphatase 91 (38-126) U/L Troponin I <0.012 (0.000-0.034) ng/mL Total Protein 6.2 L (6.3-8.2) g/dL Albumin 3.6 (3.5-5.0) g/dL - Radiology Data Radiology results: report reviewed (Left foot x-rays: No fracture seen; CT chest/abdomen/pelvis with IV contrast: No acute abnormality within the abdomen pelvis, previous gastric bariatric surgery, hiatal hernia, there is no evidence of a rib fracture, no pneumothorax) Disposition Clinical Impression: Fall, Chest wall contusion, Foot pain Disposition: HOME SELF-CARE Condition: Stable Instructions (If sedation given, give patient instructions): Contusion in Adults (ED), Fall Prevention (ED), Rib Contusion (ED) Additional Instructions: Return to the ER immediately should you develop new or worsening pain, shortness of breath, feeling dizzy or faint, or new or worsening symptoms. Follow up closely with your primary care provider. Is patient prescribed a controlled substance at d/c from ED?: No Referrals: Pily Monet MD [Primary Care Provider] - 1-2 days Time of Disposition: 22:57
[2020-12-10] MEDS: SODIUM CHLORIDE 0.9% 500 ML 500 ML IV ONE (21:26)
[2020-12-10 21:28] LABS: Basophils % (A) 0 %; Eosinophils # (A) 0.2 k/uL (0-0.7); Eosinophils % (A) 4 %; HCT 38.4 % (34.0-46.0); HGB 12.6 gm/dL (11.4-16.0); Lymphocytes # (A) 1.1 k/uL (1.0-4.8); Lymphocytes % (A) 20 %; MCH 31.5 pg (25.0-35.0); MCHC 32.8 g/dL (31.0-37.0); MCV 96.1 fL (80.0-100.0); Mean Platelet Volume 8.5; Monocytes # (A) 0.4 k/uL (0-1.0); Monocytes % (A) 7 %; Neutrophils # (A) 3.7 k/uL (1.3-7.7); Neutrophils % (A) 68 %; Platelet Count 219 k/uL (150-450); RDW 13.4 % (11.5-15.5); WBC 5.4 k/uL (3.8-10.6)
[2020-12-10] MEDS: HYDROmorphone 0.5 MG/0.5 ML SYRINGE IVP STA (21:28)
--- NOTE | 2020-12-10 21:32 | XR ---
EXAMINATION TYPE: XR foot complete LT DATE OF EXAM: 12/10/2020 COMPARISON: NONE HISTORY: Pain TECHNIQUE: 3 views FINDINGS: Metatarsals are intact. The toes appear intact. There is vascular calcification. I see no f racture. IMPRESSION: No fracture seen.
[2020-12-10 21:52] LABS: ALT 18 U/L (4-34); AST 24 U/L (14-36); African American GFR (CKD) >90 (>60 ml/min/1.73 sqM); Albumin 3.6 g/dL (3.5-5.0); Alkaline Phosphatase 91 U/L (38-126); Anion Gap 4 mmol/L; Blood Urea Nitrogen 18 mg/dL (7-17); Calcium 8.9 mg/dL (8.4-10.2); Carbon Dioxide 26 mmol/L (22-30); Chloride 110 mmol/L (98-107); Glucose 98 mg/dL (74-99); Non-African American GFR(CKD) >90 (>60 ml/min/1.73 sqM); Potassium 3.8 mmol/L (3.5-5.1); Sodium 140 mmol/L (137-145); Total Bilirubin 0.3 mg/dL (0.2-1.3); Total Protein 6.2 g/dL (6.3-8.2)
--- NOTE | 2020-12-10 22:26 | CT ---
EXAMINATION TYPE: CT ChestAbdPelvis w con DATE OF EXAM: 12/10/2020 COMPARISON: CT abdomen 03/15/2018 HISTORY: Fall, right sided rib and abdominal pain. CT DLP: 1613.4 mGycm Automated exposure control for dose reduction was used. CONTRAST: Performed with IV Contrast, patient injected with 100ml mL of Isovue 300. There is some patchy mild infiltrate and atelectasis at the lung bases. There is no pleural effusion. There is previous gastric surgery. There is hiatal hernia. Heart size is normal. There is no pericar dial effusion. There are no hilar masses. There is no mediastinal adenopathy. Thoracic aorta is intac t. There is no aneurysm or dissection. Liver spleen pancreas appear intact. Bile ducts are not dilated. Gallbladder appears normal. There is no adrenal mass. Kidneys show satisfactory contrast opacification. There is no hydronephrosi s. Ureters are not dilated. Delayed images show normal renal excretion. There is no retroperitoneal a denopathy. The bladder is almost empty. There is right hip prosthesis with metal artifact. There is n o fluid in the pelvis. There is no inguinal hernia. There is no sign of a pelvic mass. There is hyste rectomy. There is no mesenteric edema. There is no ascites or free air. There is no bowel obstruction. The thoracic and lumbar vertebra show no compression fracture. The bony pelvis is intact. Appendix is not seen. There is no sign of thickened appendix. IMPRESSION: No acute abnormality within the abdomen pelvis. There is clearing of the right side hydronephrosis an d right side ureteral calculus compared to old exam. Previous gastric bariatric surgery. Hiatal hernia. There is some mild atelectasis at the lung bases which is new compared to old exam.
[2020-12-10 23:19] VITALS: BP 121/59; PULSE 67; RESP 18; TEMP 97.8
== END 2020-12-10 23:17 | disposition home or self-care (01) ==
LOC: EC 17:46
DX: S20.211A Contusion of right front wall of thorax, initial encounter (principal); M79.672 Pain in left foot; E78.5 Hyperlipidemia, unspecified; F03.90 Unspecified dementia, unspecified severity, without behavioral disturbance, psychotic disturbance, mood disturbance, and anxiety; F41.9 Anxiety disorder, unspecified; I25.2 Old myocardial infarction; I48.91 Unspecified atrial fibrillation; I50.9 Heart failure, unspecified; J44.9 Chronic obstructive pulmonary disease, unspecified; K21.9 Gastro-esophageal reflux disease without esophagitis; M19.90 Unspecified osteoarthritis, unspecified site; M79.7 Fibromyalgia; G47.33 Obstructive sleep apnea (adult) (pediatric); Z85.828 Personal history of other malignant neoplasm of skin; Z86.018 Personal history of other benign neoplasm; Z96.641 Presence of right artificial hip joint; W19.XXXA Unspecified fall, initial encounter; Y93.89 Activity, other specified; Y92.89 Other specified places as the place of occurrence of the external cause; Z99.81 Dependence on supplemental oxygen; Z90.89 Acquired absence of other organs; Z90.710 Acquired absence of both cervix and uterus; Z90.09 Acquired absence of other part of head and neck
CPT/HCPCS: 36415; 93005; 80053; 84484; 85025; 73630; 71260; 74177; 99284; 96374; 96361 ×2; J1170; Q9967

== ENCOUNTER 2021-09-26 12:09 | Day surgery (SDC) | payer MEDICARE, OTHER ==
[2021-09-23 09:35] VITALS: BMI 26.2
[2021-09-26 13:07] VITALS: TEMP 97.5
[2021-09-26] MEDS ORDERED: LIDOCAINE 1% (10MG/ML) FOR IV START INTRADERMA ONE (13:19)
[2021-09-26] MEDS ORDERED: LACTATED RINGERS 1,000 ML IV ONE (13:19)
[2021-09-26] MEDS ORDERED: ONDANSETRON 4 MG/2 ML VIAL ONE (13:45)
[2021-09-26] MEDS ORDERED: DEXAMETHASONE SOD PHOSPHATE 10 MG/ML 1 ML VIAL IVP ONE (13:49)
[2021-09-26] MEDS ORDERED: ONDANSETRON 4 MG/2 ML VIAL IVP ONE (13:50)
[2021-09-26] MEDS: MIDAZOLAM 2 MG/2 ML VIAL IVP ONE ×2 (13:51→14:08)
--- NOTE | 2021-09-26 14:25 | P.ANPRN ---
Procedure Note - Anesthesia - Nerve Block Performed Right Supraclavicular Single Time Out Performed: Yes (1402) Date of Procedure: 09/26/21 Procedure Start Time: 14:02 Procedure Stop Time: 14:07 Location of Patient: PreOp Indication: Acute Post-Operative Pain, Requested by Surgeon Sedation Type: Sedate with meaningful contact maintained Preparation: Sterile Prep Position: Sitting Catheter: None Needle Types: [place] Needle Gauge: 21 Ultrasound used to visualize needle placement: Yes Ultrasound used to observe medication spread: Yes Injectate: 0.5% Ropivacaine (see comment for volume) (0.5% Ropivacaine - (12 mL of 0.5% ropivacaine, 4 mg of dexamethasone, and mixed with10 mL of preservative free normal saline injected after negative intermittent aspiration) Blood Aspirated: No Pain Paresthesia on Injection Noted: No Resistance on Injection: Normal Image Stored and Saved: Yes Events: Uneventful and Well Tolerated
[2021-09-26] MEDS ORDERED: PHENYLEPHRINE-0.9% NACL SYG 1,000 MCG/10 ML SYRINGE ONE (15:47)
[2021-09-26] MEDS ORDERED: MIDAZOLAM 2 MG/2 ML VIAL ONE (15:47)
[2021-09-26] MEDS ORDERED: ROPIVACAINE 5 MG/ML 30 ML VIAL ONE (15:47)
[2021-09-26] MEDS ORDERED: PROPOFOL 10 MG/ML 20 ML VIAL IV ONE (15:47)
[2021-09-26] MEDS ORDERED: SODIUM CHLORIDE 0.9% (PF) 10 ML VIAL ONE (15:47)
[2021-09-26] MEDS ORDERED: DEXAMETHASONE SOD PHOSPHATE 4 MG/ML 1 ML VIAL ONE (15:47)
[2021-09-26] MEDS ORDERED: fentaNYL (PF) 50 MCG/ML 2 ML AMP ONE (15:47)
--- NOTE | 2021-09-26 17:24 | P.OP ---
Date of Procedure: 09/26/21 Preoperative Diagnosis: Right distal radius fracture, three-part intra-articular Postoperative Diagnosis: Same Procedure(s) Performed: Right distal radius open reduction internal fixation Implants: Skeletal dynamics, standard 3 hole plate Anesthesia: MAC, regional Surgeon: Do Ott Medical Diagnostic Radiographer #1: Maynor Ruiz Estimated Blood Loss (ml): 10 Condition: stable Disposition: PACU Indications for Procedure: Becca is a 66-year-old female who had a ground-level fall about a week ago onto her dominant arm. She sustained a distal radius fracture with intra- articular extension. She underwent a closed reduction with acceptable alignment. However a week later in follow-up the fracture has shifted to about 5 of dorsal tilt and radial shift of the distal piece. We had a long discussion with her about her treatment options and she ultimately elected proceed with surgical intervention. Description of Procedure: The patient, operative extremity, and procedure were identified in the preop holding area. After informed consent was obtained the patient received a regional block by the anesthesia team. She was then brought back to the operating room where the extremity was prepped and draped in normal sterile fashion with a tourniquet along the patient's brachium. After formal timeout was performed the tourniquet was inflated to 250 mmHg. a longitudinal incision was made in the forearm overlying the FCR tendon. D issection was carried down to the FCR tendon with care taken to protect neurovascular structures. The FCR tendon was then mobilized ulnarly and the sub-sheath was incised to access the flexor tendons. The flexor tendons were then scooped ulnarly to reveal the pronator quadratus. This was incised longitudinally and elevated to reveal the fracture site. The brachial radialis tendon was identified and isolated. It was then cut in a stepwise fashion to facilitate reduction. The fracture fragments were then carefully cleaned with a ronguer. A [place] elevator was then used to facilitate fracture reduction. The plate was then provisionally placed with K wires. The fracture fragments were somewhat unstable and we decided to fixate the distal segment first. Once the position of the plate was checked with fluoroscopy, smooth locking pegs were inserted into the distal aspect of the plate. The reduction maneuver was again performed including a Paco along the ulnar side of the radius. The oblong hole in the proximal aspect of the plate was then drilled. The screw was then placed provisionally all the reduction was fine tuned. Once the reduction and hardware placement was satisfactory, the remaining corresponding screws were inserted. Final fluoroscopic images confirmed adequate reduction of the fracture and appropriate placement of hardware. Brachial radialis was then repaired with 3-0 Vicryl. Tourniquet was then let down hemostasis was achieved and the remainder of the wound was closed in a layered fashion with 4-0 Monocryl and skin glue. Wound was dressed with Adaptic 4 x 4's and soft roll padding. A volar wrist splint was placed. It was aroused by the anesthesia team and brought back to PACU in stable condition.
[2021-09-26 17:33] VITALS: RESP 16
[2021-09-26 17:57] VITALS: BP 106/63; PULSE 62
== END 2021-09-26 19:02 | disposition home or self-care (01) ==
LOC: OR 12:09
PROVIDERS: ATTEND Orthopaedic Surgery Hand Surgery
DX: S52.501A Unspecified fracture of the lower end of right radius, initial encounter for closed fracture (principal)
CPT/HCPCS: 25609; C1713; J2250; J1100 ×2; J0690; J2405; J3010; J2795; J2370; J2704

== ENCOUNTER 2021-10-06 17:40 | Observation (INO) | payer MEDICARE, OTHER ==
[2021-10-06 18:43] LABS: Basophils % (A) 1 %; Eosinophils # (A) 0.3 k/uL (0-0.7); Eosinophils % (A) 5 %; HCT 40.3 % (34.0-46.0); HGB 13.2 gm/dL (11.4-16.0); Hypochromasia Slight; Lymphocytes # (A) 1.1 k/uL (1.0-4.8); Lymphocytes % (A) 23 %; MCH 33.1 pg (25.0-35.0); MCHC 32.6 g/dL (31.0-37.0); MCV 101.4 fL (80.0-100.0); Macrocytosis Slight; Mean Platelet Volume 9.2; Monocytes # (A) 0.3 k/uL (0-1.0); Monocytes % (A) 6 %; Neutrophils # (A) 3.1 k/uL (1.3-7.7); Neutrophils % (A) 63 %; Platelet Count 230 k/uL (150-450); RBC 3.98 m/uL (3.80-5.40); RDW 13.2 % (11.5-15.5); WBC 4.9 k/uL (3.8-10.6)
[2021-10-06 18:54] LABS: INR 0.9 (<1.2); Partial Thromboplastin Time 22.5 sec (22.0-30.0); Prothrombin Time 10.3 sec (9.0-12.0)
[2021-10-06 18:58] LABS: Albumin 3.1 g/dL (3.5-5.0); Potassium 3.4 mmol/L (3.5-5.1); Total Bilirubin 0.5 mg/dL (0.2-1.3); Total Protein 5.7 g/dL (6.3-8.2)
--- NOTE | 2021-10-06 19:30 | XR ---
EXAMINATION TYPE: XR chest 2V DATE OF EXAM: 10/06/2021 COMPARISON: Chest x-ray dated 05/06/2019 HISTORY: Chest pain, irregular heart rate TECHNIQUE: Frontal and lateral views of the chest are obtained. FINDINGS: There is no focal air space opacity, pleural effusion, or pneumothorax seen. The cardiac silhouette size is within normal limits. The osseous structures are intact. There are overlying dilan ds. IMPRESSION: No acute cardiopulmonary process.
[2021-10-06] MEDS ORDERED: MORPHINE SULFATE 4 MG/ML SYRINGE IVP STA (20:02)
--- NOTE | 2021-10-06 21:07 | CT ---
EXAMINATION TYPE: CT chest angio for PE CT DLP: 342 mGycm, Automated exposure control for dose reduction was used. DATE OF EXAM: 10/06/2021 8:47 PM COMPARISON: Chest radiograph from same day. Multiple CTs of the chest with most recent on 12/10/2020 . CLINICAL INDICATION:Female, 66 years old with history of chest pain; TECHNIQUE/CONTRAST: CTA scan of the thorax is performed with IV Contrast, patient injected with 100 mL of Isovue 370, pul monary embolism protocol. MIP images are created and reviewed. FINDINGS: Pulmonary Artery: There is no evidence for a filling defect within the pulmonary vasculature to sugge st acute pulmonary embolism. The pulmonary artery is of normal size. Lungs/Pleura: No evidence of focal consolidation, pleural effusion or pneumothorax. Airway: Large airways are patent. Heart: Within normal limits for size.. Vasculature: No evidence of aortic aneurysm. Mediastinum: No gross evidence of adenopathy. Musculoskeletal: Compression deformity of the superior endplate of T7 which is increased from prior with superimposed Schmorl's node. Soft Tissues: Unremarkable. Lower neck: No significant findings. Upper Abdomen: Postsurgical changes to the stomach and distal esophagus. There is a small hiatal andie ia present. Few scattered clonic diverticula present. Bilateral renal cysts are present. IMPRESSION: 1. No evidence of pulmonary embolism. 2. Interval increase in compression of the T7 vertebral body with superimposed Schmorl's node. 3. Postsurgical changes to the stomach and distal esophagus with small hiatal hernia.
--- NOTE | 2021-10-06 21:35 | ED ---
Chest Pain HPI - General Chief Complaint: Chest Pain Stated Complaint: irregular HR Time Seen by Provider: 10/06/21 18:01 Source: EMS Mode of arrival: EMS - History of Present Illness Initial Comments: 66-year-old female with past history of A. fib, DVT/PE, heart failure who presents the emergency room with reported chest pain. She was at home when she began having chest discomfort after running errands with her daughter. She was checking her watch at home and had variable heart rates between 50 and 120. She called her primary care doctor who recommended that she come into the emergency room for evaluation. Patient presents with substernal pain. Did not attempt to take any medications at home for her symptoms. Has associated nausea without vomiting. Patient had a recent right wrist surgery and therefore was off of her anticoagulation for several days. Denies any additional missed medications. No other alleviating, precipitating or modifying factors - Related Data Home Medications Medication Instructions Recorded Confirmed ALPRAZolam [Xanax] 2 mg PO TID 12/14/13 10/10/21 Dextroamphetamine/Amphetamine 20 mg PO BID 12/14/13 10/10/21 [Adderall] FLUoxetine HCL [PROzac] 40 mg PO BID 12/14/13 10/10/21 QUEtiapine [SEROquel] 100 mg PO HS@2100 01/04/16 10/10/21 Fluticasone/Vilanterol [Breo 1 puff INHALATION RT-DAILY 05/15/18 10/10/21 Ellipta 200-25 Mcg Inhaler] Albuterol Sulfate [Ventolin HFA] 2 puff INHALATION RT-Q6H PRN 12/09/19 10/10/21 Atorvastatin [Lipitor] 10 mg PO DAILY 12/09/19 10/10/21 QUEtiapine FUMARATE [SEROquel] 25 mg PO TID@0700,1300,1600 12/09/19 10/10/21 Cholecalciferol [Vitamin D3 (25 100 mcg PO DAILY 12/10/20 10/10/21 Mcg = 1000 Iu)] Omeprazole 20 mg PO AC-BID 12/10/20 10/10/21 lamoTRIgine [LaMICtal] 50 mg PO DAILY 12/10/20 10/10/21 Famotidine 20 mg PO BID 10/06/21 10/10/21 Previous Rx's Medication Instructions Recorded Apixaban [Eliquis] 5 mg PO BID 30 Days #60 tab 02/05/19 HYDROcodone/APAP 7.5-325MG [[place] 1 tab PO Q6HR PRN 7 Days #30 tab 09/26/21 7.5-325] Metoprolol Tartrate [Lopressor] 12.5 mg PO BID #0 10/10/21 Ondansetron [Zofran] 4 mg PO Q8HR PRN #30 tab 10/11/21 Allergies Allergy/AdvReac Type Severity Reaction Status Date / Time adhesive tape AdvReac Skin Verified 10/10/21 07:43 Tearing parmesan cheese Allergy Rash/Hives Uncoded 10/07/21 03:22 Review of Systems ROS Statement: Those systems with pertinent positive or pertinent negative responses have been documented in the HPI. ROS Other: All systems not noted in ROS Statement are negative. EKG Findings - EKG Comments: EKG Findings:: EKG demonstrates a sinus rhythm with a rate of 76. OK interval 149. QRS 94. QTC 443. No acute ST segment elevations or depressions Past Medical History Past Medical History: Atrial Fibrillation, Asthma, Cancer, Heart Failure, COPD, Dementia, Deep Vein Thrombosis (DVT), Fibromyalgia, GERD/Reflux, GI Bleed, Hyperlipidemia, Memory Impairment, Myocardial Infarction ([place]), Osteoarthritis (OA), Pneumonia, Pulmonary Embolus (PE), Sleep Apnea/CPAP/BIPAP Additional Past Medical History / Comment(s): had pneumonia fall 2020, skin cancer with removals, pt states she had a [place] in 2015, hypotension, dementia/memory issues d/t of daughter, esophageal strictures w/ba , diverticular disease, anemia, RLS, kidney stones, sinus problems, LORIE- not using CPAP, fx. ribs last fall & was adm. & found to have bad gallbladder, hx. of lung nodules-had lavage, PE's & DVT 3-4 yrs. ago-unsure of cause, takes metoprolol for a-fib, fell last week & fx. right wrist-has half cast/splint Last Myocardial Infarction Date:: 2015 History of Any Multi-Drug Resistant Organisms: None Reported Past Surgical History: Adenoidectomy, Appendectomy, Bariatric Surgery, Breast Surgery, Cholecystectomy, Hernia Repair, Hysterectomy, Joint Replacement, Tonsillectomy Additional Past Surgical History / Comment(s): R breast bx. x2, 3 umbilical hernia repairs, lithotripsies, gastric bypass, L chao benign tumor, multiple skin bx/skin cancer removals, EGD/dilations and colonoscopies. rt hip replacement Past Anesthesia/Blood Transfusion Reactions: Previous Problems w/ Anesthesia Additional Past Anesthesia/Blood Transfusion Reaction / Comment(s): bp dips low, tends to bleed alot w/surgeries, no problems w/blood transfusions Past Psychological History: Anxiety, Depression Smoking Status: Never smoker - Past Family History Brother(s) Family Medical History: Cancer Additional Family Medical History / Comment(s): Psychiatric history also runs in the patient's family. The patient's daughter has committed suicide. The patient's brother and sister and mother all of cancers. Apparently rest cancer and esophageal cancer and pancreatic cancer runs in family unable to give detailed history on that. Sister(s) Family Medical History: Cancer Father Family Medical History: Cancer Additional Family Medical History / Comment(s): Father had lung cancer. Mother Family Medical History: Cancer Additional Family Medical History / Comment(s): Mother had pancreatic cancer. General Exam General appearance: alert, in no apparent distress Head exam: Present: atraumatic, normocephalic, normal inspection Eye exam: Present: normal appearance, PERRL, EOMI. Absent: scleral icterus, conjunctival injection, periorbital swelling ENT exam: Present: normal exam, mucous membranes moist Neck exam: Present: normal inspection. Absent: tenderness, meningismus, lymphadenopathy Respiratory exam: Present: normal lung sounds bilaterally. Absent: respiratory distress, wheezes, rales, rhonchi, stridor Cardiovascular Exam: Present: regular rate, normal rhythm, normal heart sounds. Absent: systolic murmur, diastolic murmur, rubs, gallop, clicks GI/Abdominal exam: Present: soft, normal bowel sounds. Absent: distended, tenderness, guarding, rebound, rigid Extremities exam: Present: normal inspection, full ROM, normal capillary refill. Absent: tenderness, pedal edema, joint swelling, calf tenderness Back exam: Present: normal inspection Neurological exam: Present: alert, oriented X3, CN II-XII intact Psychiatric exam: Present: normal affect, normal mood Skin exam: Present: warm, dry, intact, normal color. Absent: rash Course Vital Signs 10/06/21 10/06/21 10/06/21 17:45 17:50 20:49 Temperature 99.6 F 99.6 F 98.4 F Pulse Rate 73 72 Respiratory 14 12 Rate Blood Pressure 123/74 137/83 O2 Sat by Pulse 96 100 Oximetry 10/06/21 10/07/21 22:17 00:16 Temperature 98.6 F Pulse Rate 64 62 Respiratory 10 L 18 Rate Blood Pressure 113/77 117/67 O2 Sat by Pulse 100 100 Oximetry Chest Pain MDM - MDM Upon arrival patient was placed into room 8. A thorough history and physical exam was performed. Her patient placed on continuous pulse ox and cardiac monitoring. Laboratory studies obtained. Patient is sent for a CT of her chest that she has been off her anticoagulation and does have a history of DVT and PE. CT is negative for pulmonary embolism. She does have a small hiatal hernia. Troponins are negative. Patient was administered an aspirin and 4 mg of morphine. Does report improvement in her symptoms. Called and spoke with Dr. Menon who agreed to admit the patient. I will place cardiology on consult. Patient awaiting a bed on the floor in stable condition Disposition Clinical Impression: Chest pain, Palpitations Disposition: ADMITTED IP TO THIS HOSP Condition: Stable Is patient prescribed a controlled substance at d/c from ED?: No Decision to Admit Reason: Admit from EC Decision Date: 10/06/21 Decision Time: 21:35
[2021-10-06] MEDS ORDERED: NALOXONE 0.4 MG/ML 1 ML VIAL IV PRN (21:37)
[2021-10-06] MEDS ORDERED: MAG HYDROX/AL HYDROX/SIMETH 30 ML, HYOSCYAMINE ELIXIR 10 ML PO STA ×2 (21:39)
[2021-10-06] MEDS ORDERED: ASPIRIN 81 MG PO STA (21:41)
[2021-10-06] MEDS ORDERED: ALBUTEROL NEBULIZED 2.5 MG/3 ML INHALATION PRN (23:32)
[2021-10-07] MEDS: METOPROLOL TARTRATE 25 MG TAB PO SCH ×3 (00:28→21:05)
[2021-10-07] MEDS: FLUoxetine HCL 20 MG CAP PO SCH ×3 (00:28→21:04)
[2021-10-07] MEDS: PANTOPRAZOLE 40 MG TABLET PO SCH ×3 (00:29→17:19)
[2021-10-07] MEDS: APIXABAN 5 MG TAB PO SCH ×3 (00:30→21:04)
[2021-10-07] MEDS: ALPRAZolam 1 MG TAB PO SCH ×4 (00:31→23:06)
[2021-10-07] MEDS: FAMOTIDINE 20 MG TAB PO SCH ×3 (00:31→21:04)
[2021-10-07] MEDS ORDERED: Potassium Replacement Protocol 1 EACH MISC MISCELLANE PRN (01:03)
[2021-10-07] MEDS: POTASSIUM CHLORIDE ER 20 MEQ TAB.ER PO SCH ×2 (01:18→03:17)
[2021-10-07 07:44] LABS: Basophils % (A) 1 %; Eosinophils # (A) 0.2 k/uL (0-0.7); Eosinophils % (A) 5 %; HCT 38.5 % (34.0-46.0); HGB 11.9 gm/dL (11.4-16.0); Hypochromasia Slight; Lymphocytes # (A) 1.4 k/uL (1.0-4.8); Lymphocytes % (A) 37 %; MCH 31.5 pg (25.0-35.0); MCV 101.6 fL (80.0-100.0); Mean Platelet Volume 9.4; Monocytes # (A) 0.3 k/uL (0-1.0); Monocytes % (A) 7 %; Neutrophils # (A) 1.9 k/uL (1.3-7.7); Neutrophils % (A) 49 %; Platelet Count 191 k/uL (150-450); RBC 3.79 m/uL (3.80-5.40); RDW 12.7 % (11.5-15.5); WBC 3.8 k/uL (3.8-10.6)
[2021-10-07 08:19] LABS: African American GFR (CKD) >90 (>60 ml/min/1.73 sqM); Anion Gap 3 mmol/L; Blood Urea Nitrogen 22 mg/dL (7-17); Calcium 7.9 mg/dL (8.4-10.2); Carbon Dioxide 21 mmol/L (22-30); Chloride 116 mmol/L (98-107); Glucose 81 mg/dL (74-99); Non-African American GFR(CKD) >90 (>60 ml/min/1.73 sqM); Potassium 4.1 mmol/L (3.5-5.1); Sodium 140 mmol/L (137-145)
[2021-10-07] MEDS ORDERED: CAFFEINE CITRATE 60 MG/3 ML VIAL IV PRN (08:36)
[2021-10-07] MEDS ORDERED: REGADENOSON 0.4 MG/5 ML SYRINGE IV PRN (08:36)
[2021-10-07] MEDS ORDERED: AMINOPHYLLINE 500 MG/20 ML VIAL IV PRN (08:36)
[2021-10-07] MEDS: QUEtiapine 25 MG TAB PO SCH ×3 (08:42→16:38)
[2021-10-07] MEDS: CHOLECALCIFEROL 25 MCG (1000 IU) TABLET PO SCH (08:43)
[2021-10-07] MEDS: lamoTRIgine 25 MG TAB PO SCH (08:45)
[2021-10-07] MEDS: ATORVASTATIN 10 MG TAB PO SCH (08:47)
[2021-10-07] MEDS: NON FORMULARY DRUG (Dextroamphetamine/Amphetamine [Adderall] 20 MG Tablet) PO SCH ×2 (08:48→21:59)
--- NOTE | 2021-10-07 09:32 | P.CRDCN ---
History of Present Illness History of present illness: HISTORY OF PRESENTING ILLNESS This is a pleasant 66-year-old female past medical history significant for paroxysmal atrial fibrillation on Eliquis, hypertension, dyslipidemia, COPD/asthma, memory impairment, DVT/PE, recent right wrist fracture s/p right distal radius open reduction internal fixation on 09/26/21 . She follows in the office with Dr. Martinez. We have been asked to see in consultation for chest pain. Patient presents emergency department with complaints of palpitations and chest discomfort. She states yesterday she was lying in bed and had increased palpitations. She also had increased chest pressure on the left side of her chest, describes it as heaviness as if someone is sitting on her chest. She did have radiation to her left jaw. It was nonexertional. She denies any shortness of breath. She did have associated nausea, lightheadedness, dizziness and generalized weakness. She did have a near syncopal episode. Throughout the day she was noticing symptoms and changes in her heart rate on her watch. Noticing her heart rate fluctuating from HR 50s up to 120s. No specific aggravating or alleviating factors for the chest pain. She does not have a history of CAD, ND, Stroke, or diabetes. She is a non-smoker. DIAGNOSTICS EKG reveals sinus rhythm, heart rate 76, PACs noted, T wave inversion in lead III and aVF. Prior EKG was similar findings. Most recent stress test Lexiscan 2017 was no evidence of reversible ischemia Most recent echocardiogram 01/2019 revealed a normal ejection fraction, mild mitral regurgitation, mild tricuspid regurgitation Patient underwent Monitor in the office from 04/14/2111/09/26 which revealed sinus rhythm with artifact, no critical events, no significant bradycardia, tachycardia or arrhythmia noted. Telemetry tracings indicate sinus mechanism with heart rate 5570s, no significant arrhythmia or bradycardia noted. Chest xray no acute cardiopulmonary process CTA with no pulmonary embolism, increasing compression of T7 vertebral body Laboratory reviewed, troponin negative 3, sodium 140, potassium 4.1, BUN 22, serum current 0.6, CBC unremarkable Current home medications include Seroquel, metoprolol titrate 25 mg twice a day, Eliquis 5 mg twice a day, Xanax, albuterol, Adderall, Prozac, Breo Ellipta, PRN [place], omeprazole. REVIEW OF SYSTEMS At the time of my exam: CONSTITUTIONAL: Denies fever or chills. CARDIOVASCULAR: +chest pain, Denies shortness of breath, orthopnea, PND or palpitations. RESPIRATORY: Denies cough. GASTROINTESTINAL: Denies abdominal pain, diarrhea, constipation, nausea or vomiting. MUSCULOSKELETAL: Denies myalgias. NEUROLOGIC: Denies numbness, tingling, headache or weakness. ENDOCRINE: Denies fatigue, weight change, polydipsia or polyurina. GENITOURINARY: Denies burning, hematuria or urgency with micturation. HEMATOLOGIC: Denies history of anemia or bleeding. PHYSICAL EXAMINATION Blood pressure 99/61, heart rate 68, afebrile, saturations 96% on room air CONSTITUTIONAL: No apparent distress. HEENT: Head is normocephalic. Pupils are equal, round. Sclerae anicteric. Mucous membranes of the mouth are moist. No JVD. No carotid bruit. CHEST EXAMINATION: Lungs are clear to auscultation. No chest wall tenderness is noted on palpation or with deep breathing. HEART EXAMINATION: Regular rate and rhythm. S1, S2 heard. No murmurs, gallops or rub. ABDOMEN: Soft, nontender. Positive bowel sounds. EXTREMITIES: 2+ peripheral pulses, no lower extremity edema and no calf tenderness. SKIN: warm, dry NEUROLOGIC EXAMINATION: Patient is awake, alert and oriented x3. ASSESSMENT Chest pain, atypical, acute coronary syndrome has been ruled out Palpitations Near syncope, recent event monitor with no acute events, telemetry patient has been maintaining sinus mechanism with no acute events History of hypertension Dyslipidemia COPD/asthma History of DVT/PE Recent right wrist fracture s/p right distal radius open reduction internal fixation on 09/26/21 PLAN An acute coronary event has been ruled out with no EKG evidence of ischemia and negative cardiac enzymes. Obtain 2D echocardiogram and doppler study to assess cardiac structure and function. Perform Lexiscan stress test to assess for stress induced cardiac ischemia. If abnormal will consider coronary angiography. Patient has undergone event monitor with no acute findings, telemetry since admission patient has been maintaining sinus mechanism, no significant tachycardia, bradycardia or arrhythmia. No indication for pacemaker at this time. Continue Eliquis, statin, metoprolol tartrate 25 mg BID From a cardiology perspective if Lexiscan stress test with no acute findings, echocardiogram stable, no further inpatient workup at this time. Recommend close follow up with Dr. Martinez in the office. Thank you kindly for this consultation. Nurse practitioner note has been reviewed by physician. Signing provider agrees with the documented findings, assessment, and plan of care. Past Medical History Past Medical History: Atrial Fibrillation, Asthma, Cancer, Heart Failure, COPD, Dementia, Deep Vein Thrombosis (DVT), Fibromyalgia, GERD/Reflux, GI Bleed, Hyperlipidemia, Memory Impairment, Myocardial Infarction (ND), Osteoarthritis (OA), Pneumonia, Pulmonary Embolus (PE), Sleep Apnea/CPAP/BIPAP Additional Past Medical History / Comment(s): had pneumonia fall 2020, skin cancer with removals, pt states she had a ND in 2015, hypotension, dementia/me catarino issues d/t of daughter, esophageal strictures w/ballooning, diverticular disease, anemia, RLS, kidney stones, sinus problems, LORIE-not using CPAP, fx. ribs last fall & was adm. & found to have bad gallbladder, hx. of lung nodules-had lavage, PE's & DVT 3-4 yrs. ago-unsure of cause, takes metoprolol for a-fib, fell last week & fx. right wrist-has half cast/splint Last Myocardial Infarction Date:: 2015 History of Any Multi-Drug Resistant Organisms: None Reported Past Surgical History: Adenoidectomy, Appendectomy, Bariatric Surgery, Breast Surgery, Cholecystectomy, Hernia Repair, Hysterectomy, Joint Replacement, Tonsillectomy Additional Past Surgical History / Comment(s): R breast bx. x2, 3 umbilical hernia repairs, lithotripsies, gastric bypass, L chao benign tumor, multiple skin bx/skin cancer removals, EGD/dilations and colonoscopies. rt hip replacement Past Anesthesia/Blood Transfusion Reactions: Previous Problems w/ Anesthesia Additional Past Anesthesia/Blood Transfusion Reaction / Comment(s): bp dips low, tends to bleed alot w/surgeries, no problems w/blood transfusions Past Psychological History: Anxiety, Depression Smoking Status: Never smoker - Past Family History Brother(s) Family Medical History: Cancer Additional Family Medical History / Comment(s): Psychiatric history also runs in the patient's family. The patient's daughter has committed suicide. The patient's brother and sister and mother all of cancers. Apparently rest cancer and esophageal cancer and pancreatic cancer runs in family unable to give detailed history on that. Sister(s) Family Medical History: Cancer Father Family Medical History: Cancer Additional Family Medical History / Comment(s): Father had lung cancer. Mother Family Medical History: Cancer Additional Family Medical History / Comment(s): Mother had pancreatic cancer. Medications and Allergies Home Medications Medication Instructions Recorded Confirmed Type ALPRAZolam [Xanax] 2 mg PO TID 12/14/13 10/06/21 History Dextroamphetamine/Amphetamine 20 mg PO BID 12/14/13 10/06/21 History [Adderall] FLUoxetine HCL [PROzac] 40 mg PO BID 12/14/13 10/06/21 History QUEtiapine [SEROquel] 100 mg PO HS@2100 01/04/16 10/06/21 History Fluticasone/Vilanterol [Breo 1 puff INHALATION RT-DAILY 05/15/18 10/06/21 History Ellipta 200-25 Mcg Inhaler] Apixaban [Eliquis] 5 mg PO BID 30 Days #60 tab 02/05/19 10/06/21 Rx Albuterol Sulfate [Ventolin HFA] 2 puff INHALATION RT-Q6H PRN 12/09/19 10/06/21 History Atorvastatin [Lipitor] 10 mg PO DAILY 12/09/19 10/06/21 History QUEtiapine FUMARATE [SEROquel] 25 mg PO TID@0700,1300,1600 12/09/19 10/06/21 History Cholecalciferol [Vitamin D3 (25 100 mcg PO DAILY 12/10/20 10/06/21 History Mcg = 1000 Iu)] Omeprazole 20 mg PO AC-BID 12/10/20 10/06/21 History lamoTRIgine [LaMICtal] 50 mg PO DAILY 12/10/20 10/06/21 History Metoprolol Tartrate [Lopressor] 25 mg PO BID 09/23/21 10/06/21 History HYDROcodone/APAP 7.5-325MG [[place] 1 tab PO Q6HR PRN 7 Days #30 tab 09/26/21 10/06/21 Rx 7.5-325] Famotidine 20 mg PO BID 10/06/21 10/06/21 History Allergies Allergy/AdvReac Type Severity Reaction Status Date / Time adhesive tape AdvReac Skin Verified 10/06/21 19:30 Tearing parmesan cheese Allergy Rash/Hives Uncoded 10/07/21 03:22 Physical Exam Vitals: Vital Signs Temp Pulse Pulse Resp BP BP BP 10/07/21 07:00 98.4 F 68 18 99/61 10/07/21 02:00 18 10/07/21 00:51 98.1 F 71 16 127/80 10/07/21 00:16 98.6 F 62 18 117/67 10/06/21 22:17 64 10 L 113/77 10/06/21 20:49 98.4 F 72 12 137/83 10/06/21 17:50 99.6 F 73 14 123/74 10/06/21 17:45 99.6 F Pulse Ox 10/07/21 07:00 92 L 10/07/21 02:00 10/07/21 00:51 96 10/07/21 00:16 100 10/06/21 22:17 100 10/06/21 20:49 100 10/06/21 17:50 96 10/06/21 17:45 Intake and Output 10/06/21 10/07/21 10/07/21 22:59 06:59 14:59 Other: # Voids 1 Weight 80.832 kg Results 10/07/21 06:49 10/07/21 06:49 Cardiac Enzymes 10/06/21 10/06/21 10/07/21 Range/Units 18:18 18:18 00:15 AST 24 (14-36) U/L Troponin I <0.012 <0.012 (0.000-0.034) ng/mL Coagulation 10/06/21 Range/Units 18:18 PT 10.3 (9.0-12.0) sec APTT 22.5 (22.0-30.0) sec CBC 10/06/21 10/07/21 Range/Units 18:18 06:49 WBC 4.9 3.8 (3.8-10.6) k/uL RBC 3.98 3.79 L (3.80-5.40) m/uL Hgb 13.2 11.9 (11.4-16.0) gm/dL Hct 40.3 38.5 (34.0-46.0) % Plt Count 230 191 (150-450) k/uL Comprehensive Metabolic Panel 10/06/21 10/07/21 Range/Units 18:18 06:49 Sodium 139 140 (137-145) mmol/L Potassium 3.4 L 4.1 (3.5-5.1) mmol/L Chloride 116 H 116 H (98-107) mmol/L Carbon Dioxide 19 L 21 L (22-30) mmol/L BUN 23 H 22 H (7-17) mg/dL Creatinine 0.83 0.69 (0.52-1.04) mg/dL Glucose 97 81 (74-99) mg/dL Calcium 8.0 L 7.9 L (8.4-10.2) mg/dL AST 24 (14-36) U/L ALT 16 (4-34) U/L Alkaline Phosphatase 116 (38-126) U/L Total Protein 5.7 L (6.3-8.2) g/dL Albumin 3.1 L (3.5-5.0) g/dL Current Medications Generic Name Dose Route Start Last Admin Trade Name Freq PRN Reason Stop Dose Admin Hydrocodone Bitart/Acetaminophen 1 each 10/06/21 23:32 Hydrocodone/Apap 7.5-325mg 1 Each Tab PO Q6HR PRN Pain Albuterol Sulfate 2.5 mg 10/06/21 23:32 Albuterol Nebulized 2.5 Mg/3 Ml INHALATION RT-Q6H PRN Shortness Of Breath Alprazolam 2 mg 10/06/21 23:45 10/07/21 00:31 Alprazolam 1 Mg Tab PO 2 mg TID KAREEM Administration Apixaban 5 mg 10/06/21 23:45 10/07/21 00:30 Apixaban 5 Mg Tab PO 5 mg BID [facility] Administration Protocol Atorvastatin Calcium 10 mg 10/07/21 09:00 Atorvastatin 10 Mg Tab PO DAILY [facility] Budesonide/Formoterol Fumarate 2 puff 10/07/21 08:00 Symbicort 160-4.5 Mcg Inhaler INHALATION RT-BID [facility] Cholecalciferol 100 mcg 10/07/21 09:00 Cholecalciferol 25 Mcg (1000 Iu) Tablet PO DAILY [facility] Famotidine 20 mg 10/06/21 23:45 10/07/21 00:31 Famotidine 20 Mg Tab PO 20 mg BID KAREEM Administration Fluoxetine HCl 40 mg 10/06/21 23:45 10/07/21 00:28 Fluoxetine Hcl 20 Mg Cap PO 40 mg BID KAREEM Administration Lamotrigine 50 mg 10/07/21 09:00 Lamotrigine 25 Mg Tab PO DAILY KAREEM Metoprolol Tartrate 25 mg 10/06/21 23:45 10/07/21 00:28 Metoprolol Tartrate 25 Mg Tab PO 25 mg BID KAREEM Administration Miscellaneous Information 1 each 10/07/21 01:03 Potassium Replacement Protocol 1 Each Misc MISCELLANE DAILY PRN Per Protocol Protocol Naloxone HCl 0.2 mg 10/06/21 21:37 Naloxone 0.4 Mg/Ml 1 Ml Vial IV Q2M PRN Opioid Reversal Non-Formulary Medication 20 mg 10/07/21 09:00 Dextroamphetamine/Amphetamine [Adderall] PO BID KAREEM Pantoprazole Sodium 20 mg 10/06/21 23:45 10/07/21 00:29 Pantoprazole 40 Mg Tablet PO 20 mg AC-BID KAREEM Administration Quetiapine Fumarate 100 mg 10/07/21 21:00 Quetiapine 100 Mg Tab PO HS@2100 KAREEM Quetiapine Fumarate 25 mg 10/07/21 07:00 Quetiapine 25 Mg Tab PO TID@0700,1300,1600 KAREEM Intake and Output 10/06/21 10/07/21 10/07/21 22:59 06:59 14:59 Other: # Voids 1 Weight 80.832 kg 10/07/21 06:49 10/07/21 06:49
[2021-10-07] MEDS: SYMBICORT 160-4.5 MCG INHALER INHALATION SCH ×2 (10:17→21:27)
[2021-10-07] MEDS ORDERED: AMINOPHYLLINE 500 MG/20 ML VIAL IV ONE (11:15)
--- NOTE | 2021-10-07 11:20 | P.HPIM ---
History of Present Illness H&P Date: 10/07/21 HISTORY OF PRESENT ILLNESS This is a 66-year-old female patient with past medical history of paroxysmal atrial fibrillation on eliquis, hypertension, hyperlipidemia, COPD, gastroesophageal reflux disease, esophageal strictures with ballooning, obstructive sleep apnea not utilizing CPAP, kidney stones, restless leg syndrome, DVT and pulmonary embolism. Patient had 2 episodes of falls, recent fall caused right distal radial fracture status post ORIF. Patient also relates that she was seen people today. This occurred while she was getting a stress test done, otherwise patient has been completely awake alert and oriented. Patient concerned that her heart rate drops down in the 40s and jumps up to the 90s and that her blood pressure is low during these episodes. She does check her apical watch and sees that her heart rate is elevated. Patient presented to [facility] emergency center for evaluation. She was afebrile, heart rate 73, blood pressure 123/73, pulse ox 96% on room air. CBC was unremarkable. INR 0.9. Sodium 139, potassium 3.4, chloride 116, CO2 19, BUN 23 creatinine 0.83. Glucose 97. Calcium 8. Total bilirubin 0.5, AST 24, ALT 16, alkaline phosphatase 116. Troponin negative on 3 draws. Albumin 3.1. Chest x-ray reveals no acute cardiopulmonary process. CT angiogram of the chest revealed no evidence of pulmonary embolism. Interval increase in compression of T7 vertebral body with superimposed Schmorl's node, postsurgical change of the stomach and distal esophagus with small hiatal hernia. Patient has been seen by cardiology, acute coronary syndrome ruled out, echocardiogram and Lexiscan stress test ordered and if testing is negative, foll ow-up with Dr. Martinez in the office. Potassium was replaced with 40 mEq and repeat level 4.1. REVIEW OF SYSTEMS Constitutional: No fever, no chills, no night sweats. No weight change. No weakness, fatigue or lethargy. No daytime sleepiness. EENT: No headache. No blurred vision or double vision, no loss of vision. No loss of Hearing, no ringing in the ears, no dizziness. No nasal drainage or congestion. No epistaxis. No sore throat. Lungs: No shortness of breath, cough, no sputum production. No wheezing. Cardiovascular: Reported chest pain, no lower extremity edema. No palpitations. No paroxysmal nocturnal dyspnea. No orthopnea. No lightheadedness or dizziness. No syncopal episodes. Abdominal: No abdominal pain. No nausea, vomiting. No diarrhea. No constipation. No bloody or tarry stools. No loss of appetite. Genitourinary: No dysuria, increased frequency, urgency. No urinary retention. Musculoskeletal: No myalgias. No muscle weakness, no gait dysfunction, no freq uent falls. No back pain. No neck pain. Integumentary: No wounds, no lesions. No rash or pruritus. No unusual bruising. No change in hair or nails. Neurologic: No aphasia. No facial droop. No change in mentation. No head injury. No headache. No paralysis. No paresthesia. Psychiatric: No depression. No anxiety. No mood swings. Endocrine: No abnormal blood sugars. No weight change. No excessive sweating or thirst. No cold intolerance. MEDICAL HISTORY COPD Gastroesophageal reflux disease Pulmonary embolism and DVT Obstructive sleep apnea Paroxysmal atrial fibrillation Hypertension Hyperlipidemia SURGICAL HISTORY Cholecystectomy in 2020 Esophageal strictures with ballooning ORIF right distal radial fracture SOCIAL HISTORY Patient is a lifelong nonsmoker, no alcohol abuse, no marijuana or illicit drug use. FAMILY HISTORY Father at age 58 from myocardial infarction. Mother at age 67 from pancreatic cancer. She has one brother from larynx cancer. One sister from breast cancer and lung cancer. PHYSICAL EXAMINATION Gen: This is a 66-year-old female. She is resting in bed and appears to be comfortable and in no acute distress. HEENT: Head is atraumatic, normocephalic. Pupils equal, round. Sclerae is anicteric. NECK: Supple. No JVD. No lymphadenopathy. No thyromegaly. LUNGS: Clear to auscultation. No wheezes or rhonchi. No intercostal retractions. HEART: Regular rate and rhythm. 2/6 systolic murmur. ABDOMEN: Soft. Bowel sounds are present. No masses. No tenderness. EXTREMITIES: No pedal edema. No calf tenderness. Dorsalis pedis +2 bilaterally. NEUROLOGICAL: Patient is awake, alert and oriented x3. Cranial nerves 2 through 12 are grossly intact. ASSESSMENT AND PLAN 1. Chest pain, acute coronary syndrome ruled out. Lexiscan stress test came back normal. 2. Falls secondary to possible bradycardia, episodes of afib, hypotension. Patient will be given IV fluid bolus followed by IV fluids at 0.9 normal saline 75 mL per hour. Continue cardiac monitoring, patient may require event monitor. 3. Paroxysmal atrial fibrillation. Continue eliquis 5 mg twice daily, Lopressor 25 mg twice daily. 4. Gastroesophageal reflux disease. Continue omeprazole 5. Hypertension. Continue Lopressor. 6. Hyperlipidemia. Continue atorvastatin. 7. History of pulmonary embolism and DVT. 8. Obstructive sleep apnea. 9. COPD 10. Recent right distal radius fracture s/p ORIF on 09/[address] Ott. Maintain cast. 11. Generalized anxiety disorder. Continue Xanax 2 mg 3 times daily, Seroquel 25 mg 3 times daily and 100 mg at bedtime, Lamictal 50 mg daily, Prozac 40 mg twice daily. Patient places in observation status. DISCHARGE PLAN Home. Impression and plan of care have been directed as dictated by the signing physician. Sita Peralta nurse practitioner acting as scribe for signing physician. Past Medical History Past Medical History: Atrial Fibrillation, Asthma, Cancer, Heart Failure, COPD, Dementia, Deep Vein Thrombosis (DVT), Fibromyalgia, GERD/Reflux, GI Bleed, Hyperlipidemia, Memory Impairment, Myocardial Infarction (IL), Osteoarthritis (OA), Pneumonia, Pulmonary Embolus (PE), Sleep Apnea/CPAP/BIPAP Additional Past Medical History / Comment(s): had pneumonia fall 2020, skin cancer with removals, pt states she had a IL in 2015, hypotension, dementia/memory issues d/t of daughter, esophageal strictures w/ballooning, diverticular disease, anemia, RLS, kidney stones, sinus problems, LORIE-not using CPAP, fx. ribs last fall & was adm. & found to have bad gallbladder, hx. of lung nodules-had lavage, PE's & DVT 3-4 yrs. ago-unsure of cause, takes metoprolol for a-fib, fell last week & fx. right wrist-has half cast/splint Last Myocardial Infarction Date:: 2015 History of Any Multi-Drug Resistant Organisms: None Reported Past Surgical History: Adenoidectomy, Appendectomy, Bariatric Surgery, Breast Surgery, Cholecystectomy, Hernia Repair, Hysterectomy, Joint Replacement, Tonsillectomy Additional Past Surgical History / Comment(s): R breast bx. x2, 3 umbilical hernia repairs, lithotripsies, gastric bypass, L chao benign tumor, multiple skin bx/skin cancer removals, EGD/dilations and colonoscopies. rt hip replaceme nt Past Anesthesia/Blood Transfusion Reactions: Previous Problems w/ Anesthesia Additional Past Anesthesia/Blood Transfusion Reaction / Comment(s): bp dips low, tends to bleed alot w/surgeries, no problems w/blood transfusions Past Psychological History: Anxiety, Depression Smoking Status: Never smoker - Past Family History Brother(s) Family Medical History: Cancer Additional Family Medical History / Comment(s): Psychiatric history also runs in the patient's family. The patient's daughter has committed suicide. The patient's brother and sister and mother all of cancers. Apparently rest cancer and esophageal cancer and pancreatic cancer runs in family unable to give detailed history on that. Sister(s) Family Medical History: Cancer Father Family Medical History: Cancer Additional Family Medical History / Comment(s): Father had lung cancer. Mother Family Medical History: Cancer Additional Family Medical History / Comment(s): Mother had pancreatic cancer. Medications and Allergies Home Medications Medication Instructions Recorded Confirmed Type ALPRAZolam [Xanax] 2 mg PO TID 12/14/13 10/10/21 History Dextroamphetamine/Amphetamine 20 mg PO BID 12/14/13 10/10/21 History [Adderall] FLUoxetine HCL [PROzac] 40 mg PO BID 12/14/13 10/10/21 History QUEtiapine [SEROquel] 100 mg PO HS@2100 01/04/16 10/10/21 History Fluticasone/Vilanterol [Breo 1 puff INHALATION RT-DAILY 05/15/18 10/10/21 Histor y Ellipta 200-25 Mcg Inhaler] Apixaban [Eliquis] 5 mg PO BID 30 Days #60 tab 02/05/19 10/10/21 Rx Albuterol Sulfate [Ventolin HFA] 2 puff INHALATION RT-Q6H PRN 12/09/19 10/10/21 History Atorvastatin [Lipitor] 10 mg PO DAILY 12/09/19 10/10/21 History QUEtiapine FUMARATE [SEROquel] 25 mg PO TID@0700,1300,1600 12/09/19 10/10/21 History Cholecalciferol [Vitamin D3 (25 100 mcg PO DAILY 12/10/20 10/10/21 History Mcg = 1000 Iu)] Omeprazole 20 mg PO AC-BID 12/10/20 10/10/21 History lamoTRIgine [LaMICtal] 50 mg PO DAILY 12/10/20 10/10/21 History HYDROcodone/APAP 7.5-325MG [[place] 1 tab PO Q6HR PRN 7 Days #30 tab 09/26/21 10/10/21 Rx 7.5-325] Famotidine 20 mg PO BID 10/06/21 10/10/21 History Metoprolol Tartrate [Lopressor] 12.5 mg PO BID #0 10/10/21 10/10/21 Rx Allergies Allergy/AdvReac Type Severity Reaction Status Date / Time adhesive tape AdvReac Skin Verified 10/10/21 07:43 Tearing parmesan cheese Allergy Rash/Hives Uncoded 10/07/21 03:22 Physical Exam Vitals: Vital Signs Temp Pulse Pulse Resp BP BP BP 10/07/21 07:00 98.4 F 68 18 99/61 10/07/21 02:00 18 10/07/21 00:51 98.1 F 71 16 127/80 10/07/21 00:16 98.6 F 62 18 117/67 10/06/21 22:17 64 10 L 113/77 10/06/21 20:49 98.4 F 72 12 137/83 10/06/21 17:50 99.6 F 73 14 123/74 10/06/21 17:45 99.6 F Pulse Ox 10/07/21 07:00 92 L 10/07/21 02:00 10/07/21 00:51 96 10/07/21 00:16 100 10/06/21 22:17 100 10/06/21 20:49 100 10/06/21 17:50 96 10/06/21 17:45 Intake and Output 10/06/21 10/07/21 10/07/21 22:59 06:59 14:59 Other: # Voids 1 Weight 80.832 kg Results CBC & Chem 7: 10/07/21 06:49 10/07/21 06:49 Labs: Abnormal Lab Results - Last 24 Hours (Table) 10/06/21 10/06/21 10/07/21 Range/Units 18:18 18:18 06:49 RBC 3.79 L (3.80-5.40) m/uL MCV 101.4 H 101.6 H (80.0-100.0) fL Potassium 3.4 L (3.5-5.1) mmol/L Chloride 116 H (98-107) mmol/L Carbon Dioxide 19 L (22-30) mmol/L BUN 23 H (7-17) mg/dL Calcium 8.0 L (8.4-10.2) mg/dL Total Protein 5.7 L (6.3-8.2) g/dL Albumin 3.1 L (3.5-5.0) g/dL 10/07/21 Range/Units 06:49 RBC (3.80-5.40) m/uL MCV (80.0-100.0) fL Potassium (3.5-5.1) mmol/L Chloride 116 H (98-107) mmol/L Carbon Dioxide 21 L (22-30) mmol/L BUN 22 H (7-17) mg/dL Calcium 7.9 L (8.4-10.2) mg/dL Total Protein (6.3-8.2) g/dL Albumin (3.5-5.0) g/dL Thrombosis Risk Factor Assmnt - Choose All That Apply Any of the Below Risk Factors Present?: Yes Each Factor Represents 1 point: Abnormal pulmonary function (COPD), Obesity (BMI >25) Other Risk Factors: Yes Each Risk Factor Represents 2 Points: Age 61-74 years Other congenital or acquired thrombophilia - If yes, enter type in comment: No Thrombosis Risk Factor Assessment Total Risk Factor Score: 4 Thrombosis Risk Factor Assessment Level: Moderate Risk
--- NOTE | 2021-10-07 13:17 | NM ---
EXAMINATION TYPE: NM stress lexiscan cardiolite DATE OF EXAM: 10/07/2021 COMPARISON: NONE HISTORY: Chest pain TECHNIQUE: After the intravenous administration of 10.3 mCi Tc 99m Sestamibi - Cardiolite resting SP ECT images acquired 50 minutes post injection. The patient received 0.4mg Lexiscan, 26.5 mCi Tc 99m Sestamibi - Stress images obtained [address] injection FINDINGS: Review of stress and rest SPECT images demonstrates no distinct perfusion abnormality. Gated analysi s shows normal wall motion with an estimated left ventricular ejection fraction of 59 %. IMPRESSION: No scintigraphic evidence for reversible ischemia.
--- NOTE | 2021-10-07 13:29 | EST ---
EXERCISE STRESS AGE: 66 SEX: F HT: 5'9" WT: 178 lbs. PROTOCOL: Lexiscan Cardiolite STAGE: NA DURATION OF EXERCISE: NA HEART RATE REST: 56 BLOOD PRESSURE REST: 93/59 MAXIMUM HEART RATE ACHIEVED: 74 MAXIMUM BLOOD PRESSURE: 128/78 85% MPHR: 130 100% MPHR: 153 METS: NA INDICATIONS: Chest pain. CLINICAL INFORMATION: STRESS DATA: Heart rate 56, pressure 93/59 mmHg. Baseline EKG showed sinus mechanism. The patient was given 0.4 mg of Lexiscan over 15 seconds per protocol. Max heart rate was 74 beats per minute and maximum pressure was 128/78 mmHg. Clinically the patient did not have any symptoms. The EKG did not show any significant ST or T-wave abnormalities concerning for ischemia. CONCLUSION: 1. Nondiagnostic electrocardiogram stress testing in response to Lexiscan. 2. Please follow up on the Cardiolite portion on separate report from Radiology Department. MMODL / IJN: [id number] /
[2021-10-07] MEDS ORDERED: SODIUM CHLORIDE 0.9% 500 ML 500 ML IV ONE (16:03)
[2021-10-07] MEDS: SODIUM CHLORIDE 0.9% 1,000 ML IV SCH (16:39)
[2021-10-07] MEDS: HYDROcodone/APAP 7.5-325MG 1 EACH TAB PO PRN (17:19)
--- NOTE | 2021-10-07 19:00 | ECHOF ---
Referral Reason:lv function MEASUREMENTS -------- HEIGHT: 180.3 cm WEIGHT: 80.7 kg BP: RVIDd: 2.4 cm (< 3.3) IVSd: 1.2 cm (0.6 - 1.1) LVIDd: 2.6 cm (3.9 - 5.3) LVPWd: 1.0 cm (0.6 - 1.1) IVSs: 1.5 cm LVIDs: 1.5 cm LVPWs: 1.4 cm Ao Diam: 3.2 cm (2.0 - 3.7) AV Cusp: 2.1 cm (1.5 - 2.6) LA Diam: 3.1 cm (2.7 - 3.8) MV EXCURSION: 13.883 mm (> 18.000) MV EF SLOPE: 84 mm/s (70 - 150) EPSS: 0.6 cm MV E Brian: 0.62 m/s MV DecT: 256 ms MV A Brian: 0.60 m/s MV E/A Ratio: 1.03 RAP: 5.00 mmHg RVSP: 20.65 mmHg FINDINGS -------- This was a technically good study. The left ventricular size is normal. There is mild concentric left ventricular hypertrophy. Overa ll left ventricular systolic function is normal with, an EF between 55 - 60 %. The right ventricle is normal in size. The left atrial size is normal. The right atrial size is normal. The aortic valve is trileaflet and appears structurally normal. The mitral valve is normal. The mitral valve leaflets are mildly thickened. Mild mitral regurgita tion is present. The tricuspid valve appears structurally normal. Mild tricuspid regurgitation present. Right vent ricular systolic pressure is normal at < 35 mmHg. There is no pulmonic regurgitation present. The aortic root size is normal. Normal inferior vena cava with normal inspiratory collapse consistent with estimated right atrial pre ssure of 5 mmHg. There is no pericardial effusion. CONCLUSIONS -------- 1. The left ventricular size is normal. 2. There is mild concentric left ventricular hypertrophy. 3. Overall left ventricular systolic function is normal with, an EF between 55 - 60 %. 4. The mitral valve leaflets are mildly thickened. 5. Mild mitral regurgitation is present. 6. Mild tricuspid regurgitation present. 7. There is no pericardial effusion. CREW DISPATCHER: Katrin Quesada RDCS
[2021-10-07] MEDS: QUEtiapine 100 MG TAB PO SCH ×2 (21:05→23:07)
[2021-10-08] MEDS: SODIUM CHLORIDE 0.9% 1,000 ML IV SCH (05:21)
[2021-10-08] MEDS: FLUoxetine HCL 20 MG CAP PO SCH ×2 (08:34→21:04)
[2021-10-08] MEDS: APIXABAN 5 MG TAB PO SCH ×2 (08:34→21:04)
[2021-10-08] MEDS: METOPROLOL TARTRATE 25 MG TAB PO SCH ×2 (08:34→21:04)
[2021-10-08] MEDS: SYMBICORT 160-4.5 MCG INHALER INHALATION SCH ×2 (08:34→19:47)
[2021-10-08] MEDS: ALPRAZolam 1 MG TAB PO SCH ×3 (08:36→22:16)
[2021-10-08] MEDS: lamoTRIgine 25 MG TAB PO SCH (08:36)
[2021-10-08] MEDS: CHOLECALCIFEROL 25 MCG (1000 IU) TABLET PO SCH (08:36)
[2021-10-08] MEDS: HYDROcodone/APAP 7.5-325MG 1 EACH TAB PO PRN ×2 (08:37→17:20)
[2021-10-08] MEDS: PANTOPRAZOLE 40 MG TABLET PO SCH ×2 (08:38→17:15)
[2021-10-08] MEDS: ATORVASTATIN 10 MG TAB PO SCH (08:38)
[2021-10-08] MEDS: QUEtiapine 25 MG TAB PO SCH ×3 (08:38→17:15)
[2021-10-08] MEDS: NON FORMULARY DRUG (Dextroamphetamine/Amphetamine [Adderall] 20 MG Tablet) PO SCH ×2 (08:39→21:04)
[2021-10-08] MEDS: FAMOTIDINE 20 MG TAB PO SCH ×2 (08:45→21:04)
--- NOTE | 2021-10-08 10:48 | P.PN ---
Subjective HISTORY OF PRESENTING ILLNESS This is a pleasant 66-year-old female past medical history significant for paroxysmal atrial fibrillation on Eliquis, hypertension, dyslipidemia, COPD/asthma, memory impairment, DVT/PE, recent right wrist fracture s/p right distal radius open reduction internal fixation on 09/26/21 . She follows in the office with Dr. Martinez. We have been asked to see in consultation for chest pain. Patient presents emergency department with complaints of palpitations and chest discomfort. She states yesterday she was lying in bed and had increased palpitations. She also had increased chest pressure on the left side of her chest, describes it as heaviness as if someone is sitting on her chest. She did have radiation to her left jaw. It was nonexertional. She denies any shortness of breath. She did have associated nausea, lightheadedness, dizziness and generalized weakness. She did have a near syncopal episode. Throughout the day she was noticing symptoms and changes in her heart rate on her watch. Noticing her heart rate fluctuating from HR 50s up to 120s. No specific aggravating or alleviating factors for the chest pain. She does not have a history of CAD, IL, Stroke, or diabetes. She is a non-smoker. DIAGNOSTICS EKG reveals sinus rhythm, heart rate 76, PACs noted, T wave inversion in lead III and aVF. Prior EKG was similar findings. Most recent stress test Lexiscan 2017 was no evidence of reversible ischemia Most recent echocardiogram 01/2019 revealed a normal ejection fraction, mild mitral regurgitation, mild tricuspid regurgitation Patient underwent Monitor in the office from 04/14/2111/09/26 which revealed sinus rhythm with artifact, no critical events, no significant bradycardia, tachycardia or arrhythmia noted. Telemetry tracings indicate sinus mechanism with heart rate 5570s, no signifi cant arrhythmia or bradycardia noted. Chest xray no acute cardiopulmonary process CTA with no pulmonary embolism, increasing compression of T7 vertebral body Laboratory reviewed, troponin negative 3, sodium 140, potassium 4.1, BUN 22, serum current 0.6, CBC unremarkable Current home medications include Seroquel, metoprolol titrate 25 mg twice a day, Eliquis 5 mg twice a day, Xanax, albuterol, Adderall, Prozac, Breo Ellipta, PRN Sedan, omeprazole. 10/08 Patient seen and examined. Complaining of blood being taken from her right AC where her brace is. REVIEW OF SYSTEMS At the time of my exam: CONSTITUTIONAL: Denies fever or chills. CARDIOVASCULAR: +chest pain, Denies shortness of breath, orthopnea, PND or palpitations. RESPIRATORY: Denies cough. GASTROINTESTINAL: Denies abdominal pain, diarrhea, constipation, nausea or vomiting. MUSCULOSKELETAL: Denies myalgias. NEUROLOGIC: Denies numbness, tingling, headache or weakness. ENDOCRINE: Denies fatigue, weight change, polydipsia or polyurina. GENITOURINARY: Denies burning, hematuria or urgency with micturation. HEMATOLOGIC: Denies history of anemia or bleeding. PHYSICAL EXAMINATION Blood pressure 99/61, heart rate 68, afebrile, saturations 96% on room air CONSTITUTIONAL: No apparent distress. HEENT: Head is normocephalic. Pupils are equal, round. Sclerae anicteric. Mucous membranes of the mouth are moist. No JVD. No carotid bruit. CHEST EXAMINATION: Lungs are clear to auscultation. No chest wall tenderness is noted on palpation or with deep breathing. HEART EXAMINATION: Regular rate and rhythm. S1, S2 heard. No murmurs, gallops or rub. ABDOMEN: Soft, nontender. Positive bowel sounds. EXTREMITIES: 2+ peripheral pulses, no lower extremity edema and no calf tenderness. SKIN: warm, dry NEUROLOGIC EXAMINATION: Patient is awake, alert and oriented x3. ASSESSMENT Chest pain, atypical, acute coronary syndrome has been ruled out Palpitations Near syncope, recent event monitor with no acute events, telemetry patient has been maintaining sinus mechanism with no acute events History of hypertension Dyslipidemia COPD/asthma History of DVT/PE Recent right wrist fracture s/p right distal radius open reduction internal f ixation on 09/26/21 PLAN Lexiscan stress test shows no ischemia. Echo EF 55-60% with mild MR. Chest pain is atypical. Symptoms not consistent with angina. Continue with supportive care. No arrhythmias or Afib notes on telemetry. Appears stable for DC from a cardiology standpoint. Please call with any questions. Objective - Vital Signs Vital signs: Vital Signs Temp 98.1 F 10/08/21 07:00 Pulse 72 10/08/21 07:00 Resp 17 10/08/21 07:00 BP 95/58 10/08/21 07:00 Pulse Ox 97 10/08/21 07:00 Intake & Output 10/07/21 10/08/21 10/08/21 18:59 06:59 18:59 Intake Total 480 Balance 480 Intake: Oral 480 Other: Voiding Method Toilet # Voids 3 1 # Bowel Movements 0 - Labs CBC & Chem 7: 10/07/21 06:49 10/07/21 06:49
--- NOTE | 2021-10-08 10:56 | P.CNOR ---
History of Present Illness - HPI Consult date: 10/08/21 History of present illness: This patient is a 66- year old female with a past medical history of A fib on Eilquis, hypertension, hyperlipidemia, COPD, DVT/PE who presented to [facility] emergency department yesterday with complaints of chest pain. Patient was admitted under the care of Dr. Menon with a consult placed to cardiology. Orthopedics is consulted in regards to her right wrist. Patient underwent open reduction internal fixation for right distal radius fracture on 09/26/[address] Ott. Patient was placed into a short arm volar splint following surgery. Per nursing, patient's splint was accidentally removed last evening while patient was admitted to the floor. Patient states she is unsure what happened, but she woke up this morning and her splint was across the room. She notes mild aching pain in the right wrist. Patient denies any acute increases in her wrist pain. She denies new injuries, falls. She denies numbness, tingling of the right upper extremity. Patient notes mild stiffness of the fingers. There are no additional complaints or concerns. Vital signs stable. Past Medical History Past Medical History: Atrial Fibrillation, Asthma, Cancer, Heart Failure, COPD, Dementia, Deep Vein Thrombosis (DVT), Fibromyalgia, GERD/Reflux, GI Bleed, Hyperlipidemia, Memory Impairment, Myocardial Infarction (MO), Osteoarthritis (OA), Pneumonia, Pulmonary Embolus (PE), Sleep Apnea/CPAP/BIPAP Additional Past Medical History / Comment(s): had pneumonia fall 2020, skin cancer with removals, pt states she had a MO in 2015, hypotension, dementia/mem ory issues d/t of daughter, esophageal strictures w/ballooning, diverticular disease, anemia, RLS, kidney stones, sinus problems, LORIE-not using CPAP, fx. ribs last fall & was adm. & found to have bad gallbladder, hx. of lung nodules-had lavage, PE's & DVT 3-4 yrs. ago-unsure of cause, takes metoprolol for a-fib, fell last week & fx. right wrist-has half cast/splint Last Myocardial Infarction Date:: 2015 History of Any Multi-Drug Resistant Organisms: None Reported Past Surgical History: Adenoidectomy, Appendectomy, Bariatric Surgery, Breast Surgery, Cholecystectomy, Hernia Repair, Hysterectomy, Joint Replacement, Tonsillectomy Additional Past Surgical History / Comment(s): R breast bx. x2, 3 umbilical hernia repairs, lithotripsies, gastric bypass, L chao benign tumor, multiple skin bx/skin cancer removals, EGD/dilations and colonoscopies. rt hip replacement Past Anesthesia/Blood Transfusion Reactions: Previous Problems w/ Anesthesia Additional Past Anesthesia/Blood Transfusion Reaction / Comm: bp dips low, tends to bleed alot w/surgeries, no problems w/blood transfusions Past Psychological History: Anxiety, Depression Smoking Status: Never smoker - Past Family History Brother(s) Family Medical History: Cancer Additional Family Medical History / Comment(s): Psychiatric history also runs in the patient's family. The patient's daughter has committed suicide. The patient's brother and sister and mother all of cancers. Apparently rest cancer and esophageal cancer and pancreatic cancer runs in family unable to give detailed history on that. Sister(s) Family Medical History: Cancer Father Family Medical History: Cancer Additional Family Medical History / Comment(s): Father had lung cancer. Mother Family Medical History: Cancer Additional Family Medical History / Comment(s): Mother had pancreatic cancer. Medications and Allergies Home Medications Medication Instructions Recorded Confirmed Type ALPRAZolam [Xanax] 2 mg PO TID 12/14/13 10/06/21 History Dextroamphetamine/Amphetamine 20 mg PO BID 12/14/13 10/06/21 History [Adderall] FLUoxetine HCL [PROzac] 40 mg PO BID 12/14/13 10/06/21 History QUEtiapine [SEROquel] 100 mg PO HS@2100 01/04/16 10/06/21 History Fluticasone/Vilanterol [Breo 1 puff INHALATION RT-DAILY 05/15/18 10/06/21 History Ellipta 200-25 Mcg Inhaler] Apixaban [Eliquis] 5 mg PO BID 30 Days #60 tab 02/05/19 10/06/21 Rx Albuterol Sulfate [Ventolin HFA] 2 puff INHALATION RT-Q6H PRN 12/09/19 10/06/21 History Atorvastatin [Lipitor] 10 mg PO DAILY 12/09/19 10/06/21 History QUEtiapine FUMARATE [SEROquel] 25 mg PO TID@0700,1300,1600 12/09/19 10/06/21 History Cholecalciferol [Vitamin D3 (25 100 mcg PO DAILY 12/10/20 10/06/21 History Mcg = 1000 Iu)] Omeprazole 20 mg PO AC-BID 12/10/20 10/06/21 History lamoTRIgine [LaMICtal] 50 mg PO DAILY 12/10/20 10/06/21 History Metoprolol Tartrate [Lopressor] 25 mg PO BID 09/23/21 10/06/21 History HYDROcodone/APAP 7.5-325MG [[place] 1 tab PO Q6HR PRN 7 Days #30 tab 09/26/21 10/06/21 Rx 7.5-325] Famotidine 20 mg PO BID 10/06/21 10/06/21 History Allergies Allergy/AdvReac Type Severity Reaction Status Date / Time adhesive tape AdvReac Skin Verified 10/06/21 19:30 Tearing parmesan cheese Allergy Rash/Hives Uncoded 10/07/21 03:22 Physical Examination On examination, patient is sitting up in bed in no apparent distress. She is alert and orientated x3. On inspection of the right wrist, there is a healing incision at the volar wrist that is healing very well with no surrounding erythema, ecchymosis. No drainage. No signs of infection. Motor function of the right upper extremity is grossly intact. She is able to move fingers and thumb appropriately. Sensory function is intact in the distribution of the medial, ulnar, radial nerves. Palpable radial pulse with warm, well-perfused fingers. Results - Labs Labs: H & H 10/06/21 10/07/21 Range/Units 18:18 06:49 Hgb 13.2 11.9 (11.4-16.0) gm/dL Hct 40.3 38.5 (34.0-46.0) % Coagulation 10/06/21 Range/Units 18:18 INR 0.9 (<1.2) Result Diagrams: 10/07/21 06:49 10/07/21 06:49 Assessment and Plan Assessment: Status-post right distal radius ORIF on 09/26/[address] Ott. Plan: - Patient was placed into a new short arm volar splint bedside this morning. Patient tolerated this well. I also ordered the patient a removable wrist brace. Splint may be removed and patient may wear the brace once the brace is obtained. Keep incision covered with Tefla, 4x4, BARBI wrap in brace. - Recommend strict elevation of right wrist for swelling control. Patient was instructed to perform gentle [id number]-[id number] of the fingers and thumb as t olerated. - No lifting with RUE. - Pain management as needed. - Patient should follow-up with Dr. Ott in the office this week as scheduled for her first post-operative appointment.
--- NOTE | 2021-10-08 15:27 | P.PN ---
Subjective Progress Note Date: 10/08/21 HISTORY OF PRESENT ILLNESS This is a 66-year-old female patient with past medical history of paroxysmal at rial fibrillation on eliquis, hypertension, hyperlipidemia, COPD, gastroesophageal reflux disease, esophageal strictures with ballooning, obstructive sleep apnea not utilizing CPAP, kidney stones, restless leg syndrome, DVT and pulmonary embolism Patient presented to [facility] emergency center for evaluation. She was afebrile, heart rate 73, blood pressure 123/73, pulse ox 96% on room air. CBC was unremarkable. INR 0.9. Sodium 139, potassium 3.4, chloride 116, CO2 19, BUN 23 creatinine 0.83. Glucose 97. Calcium 8. Total bilirubin 0.5, AST 24, ALT 16, alkaline phosphatase 116. Troponin negative on 3 draws. Albumin 3.1. Chest x-ray reveals no acute cardiopulmonary process. CT angiogram of the chest revealed no evidence of pulmonary embolism. Interval increase in compression of T7 vertebral body with superimposed Schmorl's node, postsurgical change of the stomach and distal esophagus with small hiatal hernia. Patient has been seen by cardiology, acute coronary syndrome ruled out, echocardiogram and Lexiscan stress test ordered and if testing is negative, foll ow-up with Dr. Martinez in the office. Potassium was replaced with 40 mEq and repeat level 4.1. 4/2: Patient is laying down in bed in no distress, she denies any chest pain, shortness breath, she appears to be generally weak, she was seen earlier by cardiology, she was cleared to be discharged home, however the patient does appear to have episodes of bradycardia associated with generalized weakness followed by tachycardia due to paroxysmal atrial fibrillation, we will continue the patient on the monitor for another 24 hours, she was evaluated by orthopedic surgery for her right forearm fracture, and she was placed in a brace, follow-up with Dr. Ott as an outpatient in order to weeks, the patient in the hospital for another 24 hours, monitor the heart over the next 24 hours, can be discharged home tomorrow and she will need an event monitor to be scheduled through Dr. Martinez's office. REVIEW OF SYSTEMS Constitutional: No fever, no chills, no night sweats. No weight change. No weakness, fatigue or lethargy. No daytime sleepiness. EENT: No headache. No blurred vision or double vision, no loss of vision. No loss of Hearing, no ringing in the ears, no dizziness. No nasal drainage or congestion. No epistaxis. No sore throat. Lungs: No shortness of breath, cough, no sputum production. No wheezing. Cardiovascular: Reported chest pain, no lower extremity edema. No palpitations. No paroxysmal nocturnal dyspnea. No orthopnea. No lightheadedness or dizziness. No syncopal episodes. Abdominal: No abdominal pain. No nausea, vomiting. No diarrhea. No constipation. No bloody or tarry stools. No loss of appetite. Genitourinary: No dysuria, increased frequency, urgency. No urinary retention. Musculoskeletal: No myalgias. No muscle weakness, no gait dysfunction, no freq uent falls. No back pain. No neck pain. Integumentary: No wounds, no lesions. No rash or pruritus. No unusual bruising. No change in hair or nails. Neurologic: No aphasia. No facial droop. No change in mentation. No head injury. No headache. No paralysis. No paresthesia. Psychiatric: No depression. No anxiety. No mood swings. Endocrine: No abnormal blood sugars. No weight change. No excessive sweating or thirst. No cold intolerance. PHYSICAL EXAMINATION Gen: This is a 66-year-old female. She is resting in bed and appears to be comfortable and in no acute distress. HEENT: Head is atraumatic, normocephalic. Pupils equal, round. Sclerae is anicteric. NECK: Supple. No JVD. No lymphadenopathy. No thyromegaly. LUNGS: Clear to auscultation. No wheezes or rhonchi. No intercostal retractions. HEART: Regular rate and rhythm. No murmur. ABDOMEN: Soft. Bowel sounds are present. No masses. No tenderness. EXTREMITIES: No pedal edema. No calf tenderness. Dorsalis pedis +2 bilaterally. NEUROLOGICAL: Patient is awake, alert and oriented x3. Cranial nerves 2 through 12 are grossly intact. ASSESSMENT AND PLAN 1. Chest pain, acute coronary syndrome ruled out. 2. Falls secondary to possible bradycardia, episodes of afib, hypotension. Continue to monitor the patient on telemetry for another 24 hours, she will likely require an event monitor her last one was done in April 2021 that was negative she will need to have a 30 day [address] Martinez's office hopefully Sunday or Sunday. Outpatient 3. Paroxysmal atrial fibrillation. Continue patient on metoprolol 25 mg orally twice every day, continue Eliquis 5 mg orally twice every day. 4. Gastroesophageal reflux disease. Patient has been maintained on Protonix 40 mg once every day. 5. Hypertension and hypertensive cardio vascular disease. Continue metoprolol 25 mg orally twice every day currently somewhat hypotensive, monitor the patient blood pressure very closely, patient did receive 500 mL of normal saline, and she was on 75 mL an hour appointment IV at this time. 6. Hyperlipidemia. Continue low-cholesterol diet, continue atorvastatin 10 mg once every day, monitor the patient, keep LDL 55-70. 7. History of pulmonary embolism and DVT. Continue patient on Eliquis 5 mg tw ice every day for life. 8. Obstructive sleep apnea. Patient has CPAP at home. 9. COPD continue patient on DuoNeb treatment.. 10. Recent right distal radius fracture s/p ORIF on 09/[address] Ott. Maintain cast. Patient places in observation status. DISCHARGE PLAN Home. Objective - Vital Signs Vital signs: Vital Signs Temp 98.7 F 10/08/21 15:00 Pulse 60 10/08/21 15:00 Resp 16 10/08/21 15:00 BP 96/57 10/08/21 15:00 Pulse Ox 96 10/08/21 15:00 Intake & Output 10/07/21 10/08/21 10/08/21 18:59 06:59 18:59 Intake Total 480 Balance 480 Intake: Oral 480 Other: Voiding Method Toilet # Voids 3 1 1 # Bowel Movements 0 - Labs CBC & Chem 7: 10/07/21 06:49 10/07/21 06:49
[2021-10-08] MEDS: QUEtiapine 100 MG TAB PO SCH (22:16)
[2021-10-09] MEDS: lamoTRIgine 25 MG TAB PO SCH (08:11)
[2021-10-09] MEDS: ALPRAZolam 1 MG TAB PO SCH (08:11)
[2021-10-09] MEDS: PANTOPRAZOLE 40 MG TABLET PO SCH (08:11)
[2021-10-09] MEDS: QUEtiapine 25 MG TAB PO SCH (08:11)
[2021-10-09] MEDS: FAMOTIDINE 20 MG TAB PO SCH (08:11)
[2021-10-09] MEDS: ATORVASTATIN 10 MG TAB PO SCH (08:11)
[2021-10-09] MEDS: FLUoxetine HCL 20 MG CAP PO SCH (08:12)
[2021-10-09] MEDS: APIXABAN 5 MG TAB PO SCH (08:12)
[2021-10-09] MEDS: CHOLECALCIFEROL 25 MCG (1000 IU) TABLET PO SCH (08:12)
[2021-10-09] MEDS: METOPROLOL TARTRATE 25 MG TAB PO SCH (08:12)
[2021-10-09 08:24] VITALS: BP 109/61; PULSE 62; RESP 18; TEMP 98.3
[2021-10-09] MEDS: SYMBICORT 160-4.5 MCG INHALER INHALATION SCH (09:09)
[2021-10-09] MEDS: NON FORMULARY DRUG (Dextroamphetamine/Amphetamine [Adderall] 20 MG Tablet) PO SCH (10:10)
[2021-10-09] MEDS: HYDROcodone/APAP 7.5-325MG 1 EACH TAB PO PRN (10:11)
--- NOTE | 2021-10-09 11:16 | P.DS ---
Providers Date of admission: 10/06/21 21:37 Expected date of discharge: 10/09/21 Attending physician: Dirk Menon Consults: 10/08/21 08:24 Consult Physician Routine Consulting Provider: Do Ott Consult Reason/Comments: recent orif rt wrist/accidental cast removal Do you want consulting provider notified?: Yes Primary care physician: Dirk Menon Hospital Course: HISTORY OF PRESENT ILLNESS This is a 66-year-old female patient with past medical history of paroxysmal atrial fibrillation on eliquis, hypertension, hyperlipidemia, COPD, gastroesophageal reflux disease, esophageal strictures with ballooning, obstructive sleep apnea not utilizing CPAP, kidney stones, restless leg syndrome, DVT and pulmonary embolism Patient presented to [facility] emergency center for evaluation. She was afebrile, heart rate 73, blood pressure 123/73, pulse ox 96% on room air. CBC was unremarkable. INR 0.9. Sodium 139, potassium 3.4, chloride 116, CO2 19, BUN 23 creatinine 0.83. Glucose 97. Calcium 8. Total bilirubin 0.5, AST 24, ALT 16, alkaline phosphatase 116. Troponin negative on 3 draws. Albumin 3.1. Chest x-ray reveals no acute cardiopulmonary process. CT angiogram of the chest revealed no evidence of pulmonary embolism. Interval increase in compression of T7 vertebral body with superimposed Schmorl's node, postsurgical change of the stomach and distal esophagus with small hiatal hernia. Patient has been seen by cardiology, acute coronary syndrome ruled out, echocardiogram and Lexiscan stress test ordered and if testing is negative, follow-up with Dr. Martinez in the office. Potassium was replaced with 40 mEq and repeat level 4.1. 4/2: Patient is laying down in bed in no distress, she denies any chest pain, shortness breath, she appears to be generally weak, she was seen earlier by cardiology, she was cleared to be discharged home, however the patient does appear to have episodes of bradycardia associated with generalized weakness followed by tachycardia due to paroxysmal atrial fibrillation, we will continue the patient on the monitor for another 24 hours, she was evaluated by orthopedic surgery for her right forearm fracture, and she was placed in a brace, follow-up with Dr. Ott as an outpatient in order to weeks, the patient in the hospital for another 24 hours, monitor the heart over the next 24 hours, can be discharged home tomorrow and she will need an event monitor to be scheduled through Dr. Martinez's office. 10/09: Patient had echocardiogram that showed evidence of ejection fraction 55%, mild mitral regurgitation moderate tricuspid regurgitation, also Lexiscan stress test came back negative for stress-induced ischemia, he shouldn't was seen and cleared by cardiology, she can be discharged home today on follow-up with her commercial marketing specialist Dr. Martinez as an outpatient for 30 day event monitor that can be scheduled next week. Final diagnoses: 1. Chest pain, acute coronary syndrome ruled out. 2. Falls secondary to possible bradycardia, episodes of afib, hypotension. 3. Paroxysmal atrial fibrillation. 4. Gastroesophageal reflux disease. 5. Hypertension and hypertensive cardiovascular disease. 6. Hyperlipidemia. 7. History of pulmonary embolism and DVT. 8. Obstructive sleep apnea. Patient has CPAP at home. 9. COPD 10. Recent right distal radius fracture s/p ORIF on 09/26 seen by orthopedic surgery and she was placed in a brace Patient Condition at Discharge: Stable Plan - Discharge Summary Discharge Rx Participant: No New Discharge Prescriptions: Continue FLUoxetine HCL [PROzac] 40 mg PO BID Dextroamphetamine/Amphetamine [Adderall] 20 mg PO BID ALPRAZolam [Xanax] 2 mg PO TID QUEtiapine [SEROquel] 100 mg PO HS@2100 Fluticasone/Vilanterol [Breo Ellipta 200-25 Mcg Inhaler] 1 puff INHALATION RT-DAILY Apixaban [Eliquis] 5 mg PO BID 30 Days #60 tab Atorvastatin [Lipitor] 10 mg PO DAILY QUEtiapine FUMARATE [SEROquel] 25 mg PO TID@0700,1300,1600 Albuterol Sulfate [Ventolin HFA] 2 puff INHALATION RT-Q6H PRN PRN Reason: Shortness Of Breath Cholecalciferol [Vitamin D3 (25 Mcg = 1000 Iu)] 100 mcg PO DAILY Omeprazole 20 mg PO AC-BID lamoTRIgine [LaMICtal] 50 mg PO DAILY Metoprolol Tartrate [Lopressor] 25 mg PO BID HYDROcodone/APAP 7.5-325MG [Cascade 7.5-325] 1 tab PO Q6HR PRN 7 Days #30 tab PRN Reason: Pain Famotidine 20 mg PO BID Discharge Medication List ALPRAZolam [Xanax] 2 mg PO TID 12/14/13 [History] Dextroamphetamine/Amphetamine [Adderall] 20 mg PO BID 12/14/13 [History] FLUoxetine HCL [PROzac] 40 mg PO BID 12/14/13 [History] QUEtiapine [SEROquel] 100 mg PO HS@2100 01/04/16 [History] Fluticasone/Vilanterol [Breo Ellipta 200-25 Mcg Inhaler] 1 puff INHALATION RT- DAILY 05/15/18 [History] Apixaban [Eliquis] 5 mg PO BID 30 Days #60 tab 02/05/19 [Rx] Albuterol Sulfate [Ventolin HFA] 2 puff INHALATION RT-Q6H PRN 12/09/19 [History] Atorvastatin [Lipitor] 10 mg PO DAILY 12/09/19 [History] QUEtiapine FUMARATE [SEROquel] 25 mg PO TID@0700,1300,1600 12/09/19 [History] Cholecalciferol [Vitamin D3 (25 Mcg = 1000 Iu)] 100 mcg PO DAILY 12/10/20 [History] Omeprazole 20 mg PO AC-BID 12/10/20 [History] lamoTRIgine [LaMICtal] 50 mg PO DAILY 12/10/20 [History] Metoprolol Tartrate [Lopressor] 25 mg PO BID 09/23/21 [History] HYDROcodone/APAP 7.5-325MG [Cascade 7.5-325] 1 tab PO Q6HR PRN 7 Days #30 tab 09/26/21 [Rx] Famotidine 20 mg PO BID 10/06/21 [History] Follow up Appointment(s)/Referral(s): Dirk Menon MD [Primary Care Provider] - 1 Week Do Ott DO [Doctor of Osteopathic Medicine] - 3 Days Discharge Disposition: HOME SELF-CARE
== END 2021-10-09 12:45 | disposition home or self-care (01) ==
LOC: EC 17:40 → 6NMEDSUR 21:37
PROVIDERS: ADMIT Internal Medicine; ATTEND Internal Medicine
DX: R07.89 Other chest pain (principal); I48.91 Unspecified atrial fibrillation; I48.0 Paroxysmal atrial fibrillation; R00.2 Palpitations; I11.0 Hypertensive heart disease with heart failure; I50.89 Other heart failure; J44.9 Chronic obstructive pulmonary disease, unspecified; F03.90 Unspecified dementia, unspecified severity, without behavioral disturbance, psychotic disturbance, mood disturbance, and anxiety; Z86.718 Personal history of other venous thrombosis and embolism; Z86.711 Personal history of pulmonary embolism; M79.7 Fibromyalgia; Z85.828 Personal history of other malignant neoplasm of skin; K21.9 Gastro-esophageal reflux disease without esophagitis; E78.5 Hyperlipidemia, unspecified; R41.3 Other amnesia; I25.2 Old myocardial infarction; Z87.01 Personal history of pneumonia (recurrent); M19.90 Unspecified osteoarthritis, unspecified site; I95.9 Hypotension, unspecified; F41.9 Anxiety disorder, unspecified; G25.81 Restless legs syndrome; F32.A Depression, unspecified; Z87.442 Personal history of urinary calculi; G47.33 Obstructive sleep apnea (adult) (pediatric); Z90.49 Acquired absence of other specified parts of digestive tract; Z98.84 Bariatric surgery status; Z90.710 Acquired absence of both cervix and uterus; Z98.890 Other specified postprocedural states; Z96.641 Presence of right artificial hip joint; Z87.81 Personal history of (healed) traumatic fracture; Z82.49 Family history of ischemic heart disease and other diseases of the circulatory system; Z80.1 Family history of malignant neoplasm of trachea, bronchus and lung; Z80.3 Family history of malignant neoplasm of breast; Z80.0 Family history of malignant neoplasm of digestive organs; Z87.19 Personal history of other diseases of the digestive system; Z79.01 Long term (current) use of anticoagulants; Z79.899 Other long term (current) drug therapy; Z91.018 Allergy to other foods; Z91.09 Other allergy status, other than to drugs and biological substances
CPT/HCPCS: 96361 ×2; 96374; 99285; 36415; 94640 ×2; 93005; 93017; 93306; 80053; 80048; 84484 ×2; 85025 ×2; 85610; 85730; 71046; 71275; 78452; G0378 ×4; A9500; J2270; J0280; J2785; Q9967

== ENCOUNTER 2021-10-09 22:04 | Observation (INO) | payer MEDICARE, OTHER ==
[2021-10-09] MEDS ORDERED: SODIUM CHLORIDE 0.9% 1,000 ML IV STA (22:29)
--- NOTE | 2021-10-09 22:30 | ED ---
Syncope HPI - General Chief Complaint: Syncope Stated Complaint: Syncope, fall Time Seen by Provider: 10/09/21 22:24 Source: patient, EMS, RN notes reviewed, old records reviewed Mode of arrival: EMS Limitations: no limitations - History of Present Illness Initial Comments: This is a 66-year-old female to the emergency department for evaluation today. Patient presents today for evaluation of a syncopal event syncopal event causing fall fall with head and neck injury. Patient currently without headache chest pain shortness breath or abdominal pain. Patient is on blood thinners. Patient also admits to feeling weak throughout the course of the night prior to fall and syncopal event MD Complaint: loss of consciousness, collapsed -: hour(s) Prodromal Symptoms: none -: second(s) Witnessed: no Injuries Sustained Associated with Event: Head Current Symptoms: lightheaded, weakness History: previous syncopal episode Context: during exertion Treatments Prior to Arrival: none - Related Data Home Medications Medication Instructions Recorded Confirmed ALPRAZolam [Xanax] 2 mg PO TID 12/14/13 10/06/21 Dextroamphetamine/Amphetamine 20 mg PO BID 12/14/13 10/06/21 [Adderall] FLUoxetine HCL [PROzac] 40 mg PO BID 12/14/13 10/06/21 QUEtiapine [SEROquel] 100 mg PO HS@2100 01/04/16 10/06/21 Fluticasone/Vilanterol [Breo 1 puff INHALATION RT-DAILY 05/15/18 10/06/21 Ellipta 200-25 Mcg Inhaler] Albuterol Sulfate [Ventolin HFA] 2 puff INHALATION RT-Q6H PRN 12/09/19 10/06/21 Atorvastatin [Lipitor] 10 mg PO DAILY 12/09/19 10/06/21 QUEtiapine FUMARATE [SEROquel] 25 mg PO TID@0700,1300,1600 12/09/19 10/06/21 Cholecalciferol [Vitamin D3 (25 100 mcg PO DAILY 12/10/20 10/06/21 Mcg = 1000 Iu)] Omeprazole 20 mg PO AC-BID 12/10/20 10/06/21 lamoTRIgine [LaMICtal] 50 mg PO DAILY 12/10/20 10/06/21 Metoprolol Tartrate [Lopressor] 25 mg PO BID 09/23/21 10/06/21 Famotidine 20 mg PO BID 10/06/21 10/06/21 Previous Rx's Medication Instructions Recorded Apixaban [Eliquis] 5 mg PO BID 30 Days #60 tab 02/05/19 HYDROcodone/APAP 7.5-325MG [[place] 1 tab PO Q6HR PRN 7 Days #30 tab 09/26/21 7.5-325] Allergies Allergy/AdvReac Type Severity Reaction Status Date / Time adhesive tape AdvReac Skin Verified 10/06/21 19:30 Tearing parmesan cheese Allergy Rash/Hives Uncoded 10/07/21 03:22 Review of Systems ROS Statement: Those systems with pertinent positive or pertinent negative responses have been documented in the HPI. ROS Other: All systems not noted in ROS Statement are negative. Past Medical History Past Medical History: Atrial Fibrillation, Asthma, Cancer, Heart Failure, COPD, Dementia, Deep Vein Thrombosis (DVT), Fibromyalgia, GERD/Reflux, GI Bleed, Hyperlipidemia, Memory Impairment, Myocardial Infarction ([place]), Osteoarthritis (OA), Pneumonia, Pulmonary Embolus (PE), Sleep Apnea/CPAP/BIPAP Additional Past Medical History / Comment(s): had pneumonia fall 2020, skin cancer with removals, pt states she had a DC in 2015, hypotension, dementia/memory issues d/t of daughter, esophageal strictures w/ballooning, diverticular disease, anemia, RLS, kidney stones, sinus problems, LORIE-not using CPAP, fx. ribs last fall & was adm. & found to have bad gallbladder, hx. of lung nodules-had lavage, PE's & DVT 3-4 yrs. ago-unsure of cause, takes metoprolol for a-fib, fell last week & fx. right wrist-has half cast/splint Last Myocardial Infarction Date:: 2015 History of Any Multi-Drug Resistant Organisms: None Reported Past Surgical History: Adenoidectomy, Appendectomy, Bariatric Surgery, Breast Surgery, Cholecystectomy, Hernia Repair, Hysterectomy, Joint Replacement, Tonsillectomy Additional Past Surgical History / Comment(s): R breast bx. x2, 3 umbilical hernia repairs, lithotripsies, gastric bypass, L chao benign tumor, multiple skin bx/skin cancer removals, EGD/dilations and colonoscopies. rt hip replacem ent Past Anesthesia/Blood Transfusion Reactions: Previous Problems w/ Anesthesia Additional Past Anesthesia/Blood Transfusion Reaction / Comment(s): bp dips low, tends to bleed alot w/surgeries, no problems w/blood transfusions Past Psychological History: Anxiety, Depression Smoking Status: Never smoker Past Alcohol Use History: None Reported Past Drug Use History: None Reported - Past Family History Brother(s) Family Medical History: Cancer Additional Family Medical History / Comment(s): Psychiatric history also runs in the patient's family. The patient's daughter has committed suicide. The patient's brother and sister and mother all of cancers. Apparently rest cancer and esophageal cancer and pancreatic cancer runs in family unable to give detailed history on that. Sister(s) Family Medical History: Cancer Father Family Medical History: Cancer Additional Family Medical History / Comment(s): Father had lung cancer. Mother Family Medical History: Cancer Additional Family Medical History / Comment(s): Mother had pancreatic cancer. General Exam Limitations: no limitations General appearance: alert, in no apparent distress Head exam: Present: atraumatic, normocephalic, normal inspection Eye exam: Present: normal appearance, PERRL, EOMI. Absent: scleral icterus, conjunctival injection, periorbital swelling ENT exam: Present: normal exam, mucous membranes moist Neck exam: Present: normal inspection. Absent: tenderness, meningismus, l ymphadenopathy Respiratory exam: Present: normal lung sounds bilaterally. Absent: respiratory distress, wheezes, rales, rhonchi, stridor Cardiovascular Exam: Present: regular rate, normal rhythm, normal heart sounds. Absent: systolic murmur, diastolic murmur, rubs, gallop, clicks GI/Abdominal exam: Present: soft, normal bowel sounds. Absent: distended, tenderness, guarding, rebound, rigid Extremities exam: Present: normal inspection, full ROM, normal capillary refill. Absent: tenderness, pedal edema, joint swelling, calf tenderness Back exam: Present: normal inspection Neurological exam: Present: alert, oriented X3, CN II-XII intact Psychiatric exam: Present: normal affect, normal mood Skin exam: Present: warm, dry, intact, normal color. Absent: rash Course Vital Signs 10/09/21 10/10/21 22:13 00:00 Temperature 98.9 F Pulse Rate 54 L 58 L Respiratory 18 16 Rate Blood Pressure 103/76 113/71 O2 Sat by Pulse 98 99 Oximetry - Reevaluation(s) Reevaluation #1: 10/10/21 01:18 Medical record is reviewed Reevaluation #2: 10/10/21 01:18 Patient informed results and questions are answered Reevaluation #3: 10/10/21 01:18 Patient has no recurrent syncopal event here in the ER - Consultations Consultation #1: Spoke with Dr. Menon who agrees to admit this patient EKG Findings - EKG Comments: EKG Findings:: EKG sinus bradycardia 52 AL 153 QRS 75 QTC 427 Medical Decision Making - Medical Decision Making 66 female to the emergency department status post a syncopal event. Patient will be admitted for cardiology to evaluate and see regarding syncope and possible arrhythmia - Lab Data Result diagrams: 10/09/21 22:29 10/09/21 22:29 Lab Results 10/09/21 10/09/21 10/09/21 Range/Units 22:29 22:29 22:29 WBC 4.6 (3.8-10.6) k/uL RBC 4.07 (3.80-5.40) m/uL Hgb 13.0 (11.4-16.0) gm/dL Hct 40.8 (34.0-46.0) % MCV 100.2 H (80.0-100.0) fL MCH 32.1 (25.0-35.0) pg MCHC 32.0 (31.0-37.0) g/dL RDW 13.4 (11.5-15.5) % Plt Count 194 (150-450) k/uL MPV 9.0 Neutrophils % 60 % Lymphocytes % 27 % Monocytes % 6 % Eosinophils % 6 % Basophils % 0 % Neutrophils # 2.8 (1.3-7.7) k/uL Lymphocytes # 1.2 (1.0-4.8) k/uL Monocytes # 0.3 (0-1.0) k/uL Eosinophils # 0.3 (0-0.7) k/uL Basophils # 0.0 (0-0.2) k/uL PT 10.1 (9.0-12.0) sec INR 0.9 (<1.2) APTT 23.6 (22.0-30.0) sec Sodium 139 (137-145) mmol/L Potassium 4.1 (3.5-5.1) mmol/L Chloride 111 H (98-107) mmol/L Carbon Dioxide 21 L (22-30) mmol/L Anion Gap 7 mmol/L BUN 23 H (7-17) mg/dL Creatinine 0.93 (0.52-1.04) mg/dL Est GFR (CKD-EPI)AfAm 74 (>60 ml/min/1.73 sqM) Est GFR (CKD-EPI)NonAf 64 (>60 ml/min/1.73 sqM) Glucose 104 H (74-99) mg/dL Calcium 8.4 (8.4-10.2) mg/dL Phosphorus 4.6 H (2.5-4.5) mg/dL Magnesium 1.9 (1.6-2.3) mg/dL Total Bilirubin 0.4 (0.2-1.3) mg/dL AST 25 (14-36) U/L ALT 18 (4-34) U/L Alkaline Phosphatase 107 (38-126) U/L Troponin I (0.000-0.034) ng/mL NT-Pro-B Natriuret Pep pg/mL Total Protein 5.8 L (6.3-8.2) g/dL Albumin 3.2 L (3.5-5.0) g/dL Urine Color Urine Appearance (Clear) Urine pH (5.0-8.0) Ur Specific [place] (1.001-1.035) Urine Protein (Negative) Urine Glucose (UA) (Negative) Urine Ketones (Negative) Urine Blood (Negative) Urine Nitrite (Negative) Urine Bilirubin (Negative) Urine Urobilinogen (<2.0) mg/dL Ur Leukocyte Esterase (Negative) 10/09/21 10/09/21 10/09/21 Range/Units 22:29 22:29 22:33 WBC (3.8-10.6) k/uL RBC (3.80-5.40) m/uL Hgb (11.4-16.0) gm/dL Hct (34.0-46.0) % MCV (80.0-100.0) fL MCH (25.0-35.0) pg MCHC (31.0-37.0) g/dL RDW (11.5-15.5) % Plt Count (150-450) k/uL MPV Neutrophils % % Lymphocytes % % Monocytes % % Eosinophils % % Basophils % % Neutrophils # (1.3-7.7) k/uL Lymphocytes # (1.0-4.8) k/uL Monocytes # (0-1.0) k/uL Eosinophils # (0-0.7) k/uL Basophils # (0-0.2) k/uL PT (9.0-12.0) sec INR (<1.2) APTT (22.0-30.0) sec Sodium (137-145) mmol/L Potassium (3.5-5.1) mmol/L Chloride (98-107) mmol/L Carbon Dioxide (22-30) mmol/L Anion Gap mmol/L BUN (7-17) mg/dL Creatinine (0.52-1.04) mg/dL Est GFR (CKD-EPI)AfAm (>60 ml/min/1.73 sqM) Est GFR (CKD-EPI)NonAf (>60 ml/min/1.73 sqM) Glucose (74-99) mg/dL Calcium (8.4-10.2) mg/dL Phosphorus (2.5-4.5) mg/dL Magnesium (1.6-2.3) mg/dL Total Bilirubin (0.2-1.3) mg/dL AST (14-36) U/L ALT (4-34) U/L Alkaline Phosphatase (38-126) U/L Troponin I <0.012 (0.000-0.034) ng/mL NT-Pro-B Natriuret Pep 281 pg/mL Total Protein (6.3-8.2) g/dL Albumin (3.5-5.0) g/dL Urine Color Yellow Urine Appearance Clear (Clear) Urine pH 5.5 (5.0-8.0) Ur Specific [place] 1.031 (1.001-1.035) Urine Protein Trace H (Negative) Urine Glucose (UA) Negative (Negative) Urine Ketones Negative (Negative) Urine Blood Negative (Negative) Urine Nitrite Negative (Negative) Urine Bilirubin Negative (Negative) Urine Urobilinogen 2.0 (<2.0) mg/dL Ur Leukocyte Esterase Negative (Negative) - Radiology Data Radiology results: report reviewed (CT brain C-spine negative for acute disease), image reviewed Disposition Clinical Impression: Near syncope, Weakness, Palpitations, Syncope Disposition: HOME SELF-CARE Condition: Good Is patient prescribed a controlled substance at d/c from ED?: No Referrals: Dirk Menon MD [Primary Care Provider] - 1-2 days
[2021-10-09] MEDS ORDERED: ONDANSETRON 4 MG/2 ML VIAL IVP STA (22:38)
[2021-10-09 22:47] LABS: Basophils % (A) 0 %; Eosinophils # (A) 0.3 k/uL (0-0.7); Eosinophils % (A) 6 %; HCT 40.8 % (34.0-46.0); Lymphocytes # (A) 1.2 k/uL (1.0-4.8); Lymphocytes % (A) 27 %; MCH 32.1 pg (25.0-35.0); MCV 100.2 fL (80.0-100.0); Monocytes # (A) 0.3 k/uL (0-1.0); Monocytes % (A) 6 %; Neutrophils # (A) 2.8 k/uL (1.3-7.7); Neutrophils % (A) 60 %; Platelet Count 194 k/uL (150-450); RBC 4.07 m/uL (3.80-5.40); RDW 13.4 % (11.5-15.5); WBC 4.6 k/uL (3.8-10.6)
[2021-10-09 23:18] LABS: INR 0.9 (<1.2); Partial Thromboplastin Time 23.6 sec (22.0-30.0); Prothrombin Time 10.1 sec (9.0-12.0)
--- NOTE | 2021-10-09 23:23 | CT ---
EXAMINATION TYPE: CT brain micaelaine wo con DATE OF EXAM: 10/09/2021 COMPARISON: September 07, 2016 HISTORY: fall CT DLP: 1381.6 mGycm Automated exposure control for dose reduction was used. There is mild cerebral cortical atrophy. There is no mass effect or midline shift. There is no sign o f intracranial hemorrhage. Calvarium is intact. There is mild symmetric thalamic calcification. Skull base is intact. There is normal aeration of the mastoid sinuses. Cervical vertebra have normal alignment. There is degenerative disc space narrowing at C5-6 and C6-7 with spur formation. There is hypertrophic facet arthropathy in the lower cervical spine. No compress ion fracture. Prevertebral soft tissues are intact. IMPRESSION: Mild cerebral atrophy. No acute intracranial abnormality. Spondylotic changes in the lower cervical spine. No fracture. No significant change compared to old exam.
[2021-10-09 23:34] LABS: Appearance,Urine Clear (Clear); Bilirubin,Urine Negative (Negative); Blood,Urine Negative (Negative); Color,Urine Yellow; Glucose,Urine (UA) Negative (Negative); Ketones,Urine Negative (Negative); Leukocyte Esterase,Urine Negative (Negative); Nitrite,Urine Negative (Negative); PH, Urine 5.5 (5.0-8.0); Protein,Urine Trace (Negative); Specific Gravity,Urine 1.031 (1.001-1.035)
[2021-10-09 23:37] LABS: Albumin 3.2 g/dL (3.5-5.0); Calcium 8.4 mg/dL (8.4-10.2); Magnesium 1.9 mg/dL (1.6-2.3); Phosphorus 4.6 mg/dL (2.5-4.5); Potassium 4.1 mmol/L (3.5-5.1); Total Bilirubin 0.4 mg/dL (0.2-1.3); Total Protein 5.8 g/dL (6.3-8.2)
[2021-10-10] MEDS ORDERED: MORPHINE SULFATE 4 MG/ML SYRINGE IVP STA (00:34)
[2021-10-10] MEDS ORDERED: ALBUTEROL NEBULIZED 2.5 MG/3 ML INHALATION PRN (07:38)
--- NOTE | 2021-10-10 07:54 | P.CRDCN ---
History of Present Illness Consult date: 10/10/21 History of present illness: History of Present Illness: The patient is a 66-year-old female, followed by Dr. Martinez who presents with symptoms of arrhythmia, dizziness and chest discomfort. She has a history of paroxysmal atrial fibrillation. She was in the hospital recently with symptoms of chest discomfort and at that time had an echocardiogram that showed a normal systolic function and her MPI showed no evidence of stress induced ischemia. She has noted fluctuation in her heart rate according to her watch and felt dizzy. She complained of chest discomfort radiating to the neck. And she also noted red blood, she thinks from her vagina. Her breathing is stable but she has chronic dyspnea on exertion. She has been followed by Dr. Gar and the past and has been told she has COPD. She fell a few weeks ago and fractured her right wrist. She has occasional peripheral edema on the right side but no PND or orthopnea. There is a questionable syncope. According to the record she had an event monitor in the past that showed sinus mechanism. During her last admission she was in sinus mechanism on the monitor she has been in sinus mechanism here. Her medication at home include Seroquel, metoprolol 25 mg twice a day, Lipitor 10 mg daily, Eliquis 5 mg twice a day in addition to Xanax and Ventolin. Review of Systems: Respiratory: She has a prior history of COPD, pneumonia and pulmonary lavage GI: [She had nausea and vomiting today. No history of peptic ulcer disease. She has red blood according to her from her vagina.] : [No hematuria or dysuria.] Nervous System: [No stroke or seizure.] Physical Examination: 66-year-old female, alert, oriented, no acute distress. Blood pressure 114/70 with a heart rate in the 60 Head: [Normocephalic.] Eyes: [Sclerae nonicteric.] Neck: [Good carotid upstroke, no bruit, no jugular venous distention.] Lungs: [Clear to auscultation.] Heart: [Regular rate and rhythm, S1-S2, no S3, no rub. Systolic ejection murmur, 2/6.] Abdomen: [Soft nontender, positive bowel sounds no organomegaly.] Extremities: [No edema, intact distal pulses. Brace on the right wrist] Labs: Sinus bradycardia, rate of 52, no acute ST segment changes. Troponin less than 0.012, BUN 23, creatinine 0.93. Hemoglobin 13. Head CT showed no fracture Impression: 1. Chest discomfort of unclear etiology, no evidence of ischemia by stress testing and normal troponin 2. History of paroxysmal atrial fibrillation, continues to be in sinus mechanism 3. History of dizziness with no evidence of recurrent atrial ablation at this time 4. Recent fracture of the right wrist 5. History of chronic dyspnea Plan: 1. Continue present therapy 2. Patient according to her scheduled to undergo an event monitor as an outpatient, will keep the appointment 3. Increase physical activity 4. If she remains stable I would expect that she should be able to discharge home soon and follow-up with Dr. Martinez 5. Thank you for this consult we will follow with Past Medical History Past Medical History: Atrial Fibrillation, Asthma, Cancer, Heart Failure, COPD, Dementia, Deep Vein Thrombosis (DVT), Fibromyalgia, GERD/Reflux, GI Bleed, Hyperlipidemia, Memory Impairment, Myocardial Infarction ([place]), Osteoarthritis (OA), Pneumonia, Pulmonary Embolus (PE), Sleep Apnea/CPAP/BIPAP Additional Past Medical History / Comment(s): had pneumonia fall 2020, skin cancer with removals, pt states she had a [place] in 2015, hypotension, dementia/memory issues d/t of daughter, esophageal strictures w/ballooning, diverticular disease, anemia, RLS, kidney stones, sinus problems, LORIE-not using CPAP, fx. ribs last fall & was adm. & found to have bad gallbladder, hx. of lung nodules-had lavage, PE's & DVT 3-4 yrs. ago-unsure of cause, takes metoprolol for a-fib, fell last week & fx. right wrist-has half cast/splint Last Myocardial Infarction Date:: 2015 History of Any Multi-Drug Resistant Organisms: None Reported Past Surgical History: Adenoidectomy, Appendectomy, Bariatric Surgery, Breast Surgery, Cholecystectomy, Hernia Repair, Hysterectomy, Joint Replacement, Tonsillectomy Additional Past Surgical History / Comment(s): R breast bx. x2, 3 umbilical hernia repairs, lithotripsies, gastric bypass, L chao benign tumor, multiple skin bx/skin cancer removals, EGD/dilations and colonoscopies. rt hip replacement Past Anesthesia/Blood Transfusion Reactions: Previous Problems w/ Anesthesia Additional Past Anesthesia/Blood Transfusion Reaction / Comment(s): bp dips low, tends to bleed alot w/surgeries, no problems w/blood transfusions Past Psychological History: Anxiety, Depression Additional Psychological History / Comment(s): Pt resides with her spouse and their daughter and 2 grand children. She is independent. Pt. states her daughter of suicide 2009 Smoking Status: Never smoker Past Alcohol Use History: None Reported Past Drug Use History: None Reported - Past Family History Brother(s) Family Medical History: Cancer Additional Family Medical History / Comment(s): Psychiatric history also runs in the patient's family. The patient's daughter has committed suicide. The patient's brother and sister and mother all of cancers. Apparently rest cancer and esophageal cancer and pancreatic cancer runs in family unable to give detailed history on that. Sister(s) Family Medical History: Cancer Father Family Medical History: Cancer Additional Family Medical History / Comment(s): Father had lung cancer. Mother Family Medical History: Cancer Additional Family Medical History / Comment(s): Mother had pancreatic cancer. Medications and Allergies Home Medications Medication Instructions Recorded Confirmed Type ALPRAZolam [Xanax] 2 mg PO TID 12/14/13 10/06/21 History Dextroamphetamine/Amphetamine 20 mg PO BID 12/14/13 10/06/21 History [Adderall] FLUoxetine HCL [PROzac] 40 mg PO BID 12/14/13 10/06/21 History QUEtiapine [SEROquel] 100 mg PO HS@2100 01/04/16 10/06/21 History Fluticasone/Vilanterol [Breo 1 puff INHALATION RT-DAILY 05/15/18 10/06/21 History Ellipta 200-25 Mcg Inhaler] Apixaban [Eliquis] 5 mg PO BID 30 Days #60 tab 02/05/19 10/06/21 Rx Albuterol Sulfate [Ventolin HFA] 2 puff INHALATION RT-Q6H PRN 12/09/19 10/06/21 History Atorvastatin [Lipitor] 10 mg PO DAILY 12/09/19 10/06/21 History QUEtiapine FUMARATE [SEROquel] 25 mg PO TID@0700,1300,1600 12/09/19 10/06/21 History Cholecalciferol [Vitamin D3 (25 100 mcg PO DAILY 12/10/20 10/06/21 History Mcg = 1000 Iu)] Omeprazole 20 mg PO AC-BID 12/10/20 10/06/21 History lamoTRIgine [LaMICtal] 50 mg PO DAILY 12/10/20 10/06/21 History Metoprolol Tartrate [Lopressor] 25 mg PO BID 09/23/21 10/06/21 History HYDROcodone/APAP 7.5-325MG [[place] 1 tab PO Q6HR PRN 7 Days #30 tab 09/26/21 10/06/21 Rx 7.5-325] Famotidine 20 mg PO BID 10/06/21 10/06/21 History Allergies Allergy/AdvReac Type Severity Reaction Status Date / Time adhesive tape AdvReac Skin Verified 10/10/21 07:43 Tearing parmesan cheese Allergy Rash/Hives Uncoded 10/07/21 03:22 Physical Exam Vitals: Vital Signs Temp Pulse Pulse Resp BP BP Pulse Ox 10/10/21 01:51 98.0 F 60 16 114/74 96 10/10/21 01:30 97.5 F L 52 L 18 94/59 98 10/10/21 00:00 58 L 16 113/71 99 10/09/21 22:13 98.9 F 54 L 18 103/76 98 Intake and Output 10/09/21 10/10/21 10/10/21 22:59 06:59 14:59 Other: # Voids 1 Weight 80.739 kg 80.739 kg Results 10/09/21 22:29 10/09/21 22:29 Cardiac Enzymes 10/09/21 10/09/21 Range/Units 22:29 22:29 AST 25 (14-36) U/L Troponin I <0.012 (0.000-0.034) ng/mL Coagulation 10/09/21 Range/Units 22:29 PT 10.1 (9.0-12.0) sec APTT 23.6 (22.0-30.0) sec CBC 10/09/21 Range/Units 22:29 WBC 4.6 (3.8-10.6) k/uL RBC 4.07 (3.80-5.40) m/uL Hgb 13.0 (11.4-16.0) gm/dL Hct 40.8 (34.0-46.0) % Plt Count 194 (150-450) k/uL Comprehensive Metabolic Panel 10/09/21 Range/Units 22:29 Sodium 139 (137-145) mmol/L Potassium 4.1 (3.5-5.1) mmol/L Chloride 111 H (98-107) mmol/L Carbon Dioxide 21 L (22-30) mmol/L BUN 23 H (7-17) mg/dL Creatinine 0.93 (0.52-1.04) mg/dL Glucose 104 H (74-99) mg/dL Calcium 8.4 (8.4-10.2) mg/dL AST 25 (14-36) U/L ALT 18 (4-34) U/L Alkaline Phosphatase 107 (38-126) U/L Total Protein 5.8 L (6.3-8.2) g/dL Albumin 3.2 L (3.5-5.0) g/dL Current Medications Generic Name Dose Route Start Last Admin Trade Name Freq PRN Reason Stop Dose Admin Hydrocodone Bitart/Acetaminophen 1 each 10/10/21 07:38 Hydrocodone/Apap 7.5-325mg 1 Each Tab PO Q6HR PRN Pain Albuterol Sulfate 2 puff 10/10/21 07:38 Albuterol Hfa Inhaler INHALATION RT-Q6H PRN Shortness Of Breath Apixaban 5 mg 10/10/21 09:00 Apixaban 5 Mg Tab PO BID [facility] Protocol Atorvastatin Calcium 10 mg 10/10/21 09:00 Atorvastatin 10 Mg Tab PO DAILY [facility] Cholecalciferol 100 mcg 10/10/21 09:00 Cholecalciferol 25 Mcg (1000 Iu) Tablet PO DAILY [facility] Famotidine 20 mg 10/10/21 09:00 Famotidine 20 Mg Tab PO BID [facility] Lamotrigine 50 mg 10/10/21 09:00 Lamotrigine 25 Mg Tab PO DAILY [facility] Non-Formulary Medication 2 mg 10/10/21 09:00 Alprazolam [Xanax] PO TID [facility] Non-Formulary Medication 40 mg 10/10/21 09:00 Fluoxetine Hcl [Prozac] PO BID [facility] Non-Formulary Medication 1 puff 10/10/21 08:00 Fluticasone/Vilanterol [Breo Ellipta 200-25 Mcg Inhaler] INHALATION RT-DAILY [facility] Non-Formulary Medication 20 mg 10/10/21 17:30 Omeprazole [Omeprazole] PO AC-BID [facility] Quetiapine Fumarate 100 mg 10/10/21 21:00 Quetiapine 100 Mg Tab PO HS@2100 [facility] Quetiapine Fumarate 25 mg 10/10/21 13:00 Quetiapine 25 Mg Tab PO TID@0700,1300,1600 [facility] Intake and Output 10/09/21 10/10/21 10/10/21 22:59 06:59 14:59 Other: # Voids 1 Weight 80.739 kg 80.739 kg 10/09/21 22:29 10/09/21 22:29
[2021-10-10] MEDS: ATORVASTATIN 10 MG TAB PO SCH (08:35)
[2021-10-10] MEDS: APIXABAN 5 MG TAB PO SCH ×2 (08:35→20:59)
[2021-10-10] MEDS: CHOLECALCIFEROL 25 MCG (1000 IU) TABLET PO SCH (08:35)
[2021-10-10] MEDS: FLUoxetine HCL 20 MG CAP PO SCH ×2 (08:35→20:59)
[2021-10-10] MEDS: FAMOTIDINE 20 MG TAB PO SCH ×2 (08:35→20:59)
[2021-10-10] MEDS: ALPRAZolam 1 MG TAB PO SCH ×3 (08:35→21:00)
[2021-10-10] MEDS: PANTOPRAZOLE 40 MG TABLET PO SCH (08:35)
[2021-10-10] MEDS: HYDROcodone/APAP 7.5-325MG 1 EACH TAB PO PRN ×2 (08:45→21:09)
[2021-10-10] MEDS: lamoTRIgine 25 MG TAB PO SCH (09:08)
--- NOTE | 2021-10-10 10:03 | P.HPIM ---
History of Present Illness H&P Date: 10/10/21 HISTORY AND PHYSICAL AND DISCHARGE SUMMARY: HISTORY OF PRESENT ILLNESS This is a 66-year-old female patient with past medical history of paroxysmal atrial fibrillation on eliquis, hypertension, hyperlipidemia, COPD, gastroesophageal reflux disease, esophageal strictures with ballooning, obstructive sleep apnea not utilizing CPAP, kidney stones, restless leg syndrome, DVT and pulmonary embolism. Patient recently presented to the emergency center at [facility] for chest pain, acute coronary syndrome was ruled out. Echocardiogram revealed ejection fraction 55%, mild mitral regurgitation moderate tricuspid regurgitation, also Lexiscan stress test came back negative for stress-induced ischemia. Patient had been seen and cleared for discharge by heavy equipment diesel mechanic. Patient was to follow up Dr. Martinez in the office for 30 day event monitor. Concerning the patient has had a number of falls thought to be related to arrhythmias including a fall that caused a right distal radial fracture status post ORIF on 09/26. Patient was discharged home on 10/09 but return to the emergency center in the evening due to a syncopal event causing a fall with a he ad and neck injury. Patient presented to [facility] emergency center for evaluatio n. She was afebrile, heart rate 73, blood pressure 123/73, pulse ox 96% on room air. EKG was sinus bradycardia and heart rate of 52. CBC was unremarkable. Chloride 111, CO2 21, BUN 23 creatinine 0.93, potassium 4.1 sodium 139. Blood sugar 104. INR 0.9. Liver function tests were normal. Albumin 3.2. Troponin negative. ProBNP 281. Urinalysis clear nitrate and leukoesterase negative. CAT scan of the brain and cervical spine revealed mild cerebral atrophy. No acute intracranial abnormality. Spondylotic changes in the lower cervical spine. No fracture. No significant change. Patient has been placed in the observation unit, consult with cardiology appreciated with recommendations for event monitor as an outpatient. Patient will be discharged later today with planned follow-up Dr. Martinez.. REVIEW OF SYSTEMS Constitutional: No fever, no chills, no night sweats. No weight change. No weakness, fatigue or lethargy. No daytime sleepiness. EENT: No headache. No blurred vision or double vision, no loss of vision. No loss of Hearing, no ringing in the ears, no dizziness. No nasal drainage or congestion. No epistaxis. No sore throat. Lungs: No shortness of breath, cough, no sputum production. No wheezing. Cardiovascular: Reported chest pain, no lower extremity edema. No palpitations. No paroxysmal nocturnal dyspnea. No orthopnea. No lightheadedness or dizziness. No syncopal episodes. Abdominal: No abdominal pain. No nausea, vomiting. No diarrhea. No constipation. No bloody or tarry stools. No loss of appetite. Genitourinary: No dysuria, increased frequency, urgency. No urinary retention. Musculoskeletal: No myalgias. No muscle weakness, no gait dysfunction, no frequent falls. No back pain. No neck pain. Integumentary: No wounds, no lesions. No rash or pruritus. No unusual bruising. No change in hair or nails. Neurologic: No aphasia. No facial droop. No change in mentation. No head injury. No headache. No paralysis. No paresthesia. Psychiatric: No depression. No anxiety. No mood swings. Endocrine: No abnormal blood sugars. No weight change. No excessive sweating or thirst. No cold intolerance. MEDICAL HISTORY COPD Gastroesophageal reflux disease Pulmonary embolism and DVT Obstructive sleep apnea Paroxysmal atrial fibrillation Hypertension Hyperlipidemia SURGICAL HISTORY Cholecystectomy in 2020 Esophageal strictures with ballooning SOCIAL HISTORY Patient is a lifelong nonsmoker, no alcohol abuse, no marijuana or illicit drug use. FAMILY HISTORY Father at age 58 from myocardial infarction. Mother at age 67 from pancreatic cancer. She has one brother from larynx cancer. One sister from breast cancer and lung cancer. PHYSICAL EXAMINATION Gen: This is a 66-year-old female. She is resting in bed and appears to be comfortable and in no acute distress. HEENT: Head is atraumatic, normocephalic. Pupils equal, round. Sclerae is anic teric. NECK: Supple. No JVD. No lymphadenopathy. No thyromegaly. LUNGS: Clear to auscultation. No wheezes or rhonchi. No intercostal retractions. HEART: Regular rate and rhythm. 2/6 systolic murmur. ABDOMEN: Soft. Bowel sounds are present. No masses. No tenderness. EXTREMITIES: No pedal edema. No calf tenderness. Dorsalis pedis +2 bilaterally. NEUROLOGICAL: Patient is awake, alert and oriented x3. Cranial nerves 2 through 12 are grossly intact. ASSESSMENT AND PLAN 1. Syncopal episode, possibly related to arrhythmia 2. Multiple falls secondary to possible bradycardia, episodes of afib, arrhythmia, hypotension. 3. Paroxysmal atrial fibrillation, currently in a sinus rhythm. 4. Gastroesophageal reflux disease. 5. Hypertension. 6. Hyperlipidemia. 7. History of pulmonary embolism and DVT. 8. Obstructive sleep apnea. 9. COPD 10. Recent right distal radius fracture s/p ORIF on 09/[address] Ott. Maintain cast. Patient placed in observation status. DISCHARGE MEDICATIONS ALPRAZolam [Xanax] 2 mg PO TID 12/14/13 [History] Dextroamphetamine/Amphetamine [Adderall] 20 mg PO BID 12/14/13 [History] FLUoxetine HCL [PROzac] 40 mg PO BID 12/14/13 [History] QUEtiapine [SEROquel] 100 mg PO HS@2100 01/04/16 [History] Fluticasone/Vilanterol [Breo Ellipta 200-25 Mcg Inhaler] 1 puff INHALATION RT- DAILY 05/15/18 [History] Apixaban [Eliquis] 5 mg PO BID 30 Days #60 tab 02/05/19 [Rx] Albuterol Sulfate [Ventolin HFA] 2 puff INHALATION RT-Q6H PRN 12/09/19 [History] Atorvastatin [Lipitor] 10 mg PO DAILY 12/09/19 [History] QUEtiapine FUMARATE [SEROquel] 25 mg PO TID@0700,1300,1600 12/09/19 [History] Cholecalciferol [Vitamin D3 (25 Mcg = 1000 Iu)] 100 mcg PO DAILY 12/10/20 [History] Omeprazole 20 mg PO AC-BID 12/10/20 [History] lamoTRIgine [LaMICtal] 50 mg PO DAILY 12/10/20 [History] HYDROcodone/APAP 7.5-325MG [Waldo 7.5-325] 1 tab PO Q6HR PRN 7 Days #30 tab 09/26/21 [Rx] Famotidine 20 mg PO BID 10/06/21 [History] Metoprolol Tartrate [Lopressor] 12.5 mg PO BID #0 10/10/21 [Rx] DISCHARGE PLAN Home. Greater than 35 minutes was utilized and coordinating patient's discharge. Impression and plan of care have been directed as dictated by the signing physician. Sita Peralta nurse practitioner acting as scribe for signing physician. Past Medical History Past Medical History: Atrial Fibrillation, Asthma, Cancer, Heart Failure, COPD, Dementia, Deep Vein Thrombosis (DVT), Fibromyalgia, GERD/Reflux, GI Bleed, Hyperlipidemia, Memory Impairment, Myocardial Infarction ([place]), Osteoarthritis (OA), Pneumonia, Pulmonary Embolus (PE), Sleep Apnea/CPAP/BIPAP Additional Past Medical History / Comment(s): had pneumonia fall 2020, skin ca ncer with removals, pt states she had a [place] in 2015, hypotension, dementia/memory issues d/t of daughter, esophageal strictures w/ballooning, diverticular disease, anemia, RLS, kidney stones, sinus problems, LORIE-not using CPAP, fx. ribs last fall & was adm. & found to have bad gallbladder, hx. of lung nodules- had lavage, PE's & DVT 3-4 yrs. ago-unsure of cause, takes metoprolol for a-fib, fell last week & fx. right wrist-has half cast/splint Last Myocardial Infarction Date:: 2015 History of Any Multi-Drug Resistant Organisms: None Reported Past Surgical History: Adenoidectomy, Appendectomy, Bariatric Surgery, Breast Surgery, Cholecystectomy, Hernia Repair, Hysterectomy, Joint Replacement, Tonsillectomy Additional Past Surgical History / Comment(s): R breast bx. x2, 3 umbilical hernia repairs, lithotripsies, gastric bypass, L chao benign tumor, multiple skin bx/skin cancer removals, EGD/dilations and colonoscopies. rt hip replacement Past Anesthesia/Blood Transfusion Reactions: Previous Problems w/ Anesthesia Additional Past Anesthesia/Blood Transfusion Reaction / Comment(s): bp dips low, tends to bleed alot w/surgeries, no problems w/blood transfusions Past Psychological History: Anxiety, Depression Additional Psychological History / Comment(s): Pt resides with her spouse and their daughter and 2 grand children. She is independent. Pt. states her daughter of suicide 2009 Smoking Status: Never smoker Past Alcohol Use History: None Reported Past Drug Use History: None Reported - Past Family History Brother(s) Family Medical History: Cancer Additional Family Medical History / Comment(s): Psychiatric history also runs in the patient's family. The patient's daughter has committed suicide. The patient's brother and sister and mother all of cancers. Apparently rest cancer and esophageal cancer and pancreatic cancer runs in family unable to give detailed history on that. Sister(s) Family Medical History: Cancer Father Family Medical History: Cancer Additional Family Medical History / Comment(s): Father had lung cancer. Mother Family Medical History: Cancer Additional Family Medical History / Comment(s): Mother had pancreatic cancer. Medications and Allergies Home Medications Medication Instructions Recorded Confirmed Type ALPRAZolam [Xanax] 2 mg PO TID 12/14/13 10/10/21 History Dextroamphetamine/Amphetamine 20 mg PO BID 12/14/13 10/10/21 History [Adderall] FLUoxetine HCL [PROzac] 40 mg PO BID 12/14/13 10/10/21 History QUEtiapine [SEROquel] 100 mg PO HS@2100 01/04/16 10/10/21 History Fluticasone/Vilanterol [Breo 1 puff INHALATION RT-DAILY 05/15/18 10/10/21 History Ellipta 200-25 Mcg Inhaler] Apixaban [Eliquis] 5 mg PO BID 30 Days #60 tab 02/05/19 10/10/21 Rx Albuterol Sulfate [Ventolin HFA] 2 puff INHALATION RT-Q6H PRN 12/09/19 10/10/21 History Atorvastatin [Lipitor] 10 mg PO DAILY 12/09/19 10/10/21 History QUEtiapine FUMARATE [SEROquel] 25 mg PO TID@0700,1300,1600 12/09/19 10/10/21 History Cholecalciferol [Vitamin D3 (25 100 mcg PO DAILY 12/10/20 10/10/21 History Mcg = 1000 Iu)] Omeprazole 20 mg PO AC-BID 12/10/20 10/10/21 History lamoTRIgine [LaMICtal] 50 mg PO DAILY 12/10/20 10/10/21 History Metoprolol Tartrate [Lopressor] 25 mg PO BID 09/23/21 10/10/21 History HYDROcodone/APAP 7.5-325MG [Waldo 1 tab PO Q6HR PRN 7 Days #30 tab 09/26/21 10/10/21 Rx 7.5-325] Famotidine 20 mg PO BID 10/06/21 10/10/21 History Allergies Allergy/AdvReac Type Severity Reaction Status Date / Time adhesive tape AdvReac Skin Verified 10/10/21 07:43 Tearing parmesan cheese Allergy Rash/Hives Uncoded 10/07/21 03:22 Physical Exam Vitals: Vital Signs Temp Pulse Pulse Resp BP BP Pulse Ox 10/10/21 01:51 98.0 F 60 16 114/74 96 10/10/21 01:30 97.5 F L 52 L 18 94/59 98 10/10/21 00:00 58 L 16 113/71 99 10/09/21 22:13 98.9 F 54 L 18 103/76 98 Intake and Output 10/09/21 10/10/21 10/10/21 22:59 06:59 14:59 Other: # Voids 1 Weight 80.739 kg 80.739 kg Results CBC & Chem 7: 10/09/21 22:29 10/09/21 22:29 Labs: Abnormal Lab Results - Last 24 Hours (Table) 10/09/21 10/09/21 10/09/21 Range/Units 22:29 22:29 22:33 MCV 100.2 H (80.0-100.0) fL Chloride 111 H (98-107) mmol/L Carbon Dioxide 21 L (22-30) mmol/L BUN 23 H (7-17) mg/dL Glucose 104 H (74-99) mg/dL Phosphorus 4.6 H (2.5-4.5) mg/dL Total Protein 5.8 L (6.3-8.2) g/dL Albumin 3.2 L (3.5-5.0) g/dL Urine Protein Trace H (Negative)
[2021-10-10] MEDS: SYMBICORT 160-4.5 MCG INHALER INHALATION SCH ×2 (11:17→21:26)
[2021-10-10] MEDS: QUEtiapine 25 MG TAB PO SCH ×2 (12:29→16:26)
[2021-10-10] MEDS ORDERED: ONDANSETRON 4 MG/2 ML VIAL IVP PRN (15:15)
[2021-10-10] MEDS ORDERED: QUEtiapine 100 MG TAB PO SCH (21:00)
[2021-10-11] MEDS: HYDROcodone/APAP 7.5-325MG 1 EACH TAB PO PRN ×2 (01:09→08:57)
[2021-10-11 07:29] VITALS: BP 102/66; PULSE 62; RESP 15; TEMP 97.9
[2021-10-11] MEDS: SYMBICORT 160-4.5 MCG INHALER INHALATION SCH (08:14)
[2021-10-11] MEDS: CHOLECALCIFEROL 25 MCG (1000 IU) TABLET PO SCH (08:56)
[2021-10-11] MEDS: FAMOTIDINE 20 MG TAB PO SCH (08:56)
[2021-10-11] MEDS: ATORVASTATIN 10 MG TAB PO SCH (08:56)
[2021-10-11] MEDS: ALPRAZolam 1 MG TAB PO SCH (08:56)
[2021-10-11] MEDS: PANTOPRAZOLE 40 MG TABLET PO SCH (08:57)
[2021-10-11] MEDS: APIXABAN 5 MG TAB PO SCH (08:58)
[2021-10-11] MEDS: QUEtiapine 25 MG TAB PO SCH (09:12)
[2021-10-11] MEDS: FLUoxetine HCL 20 MG CAP PO SCH (09:12)
[2021-10-11] MEDS: lamoTRIgine 25 MG TAB PO SCH (09:12)
--- NOTE | 2021-10-11 14:36 | P.DS ---
Providers Date of admission: 10/10/21 01:20 Expected date of discharge: 10/11/21 Attending physician: Dirk Menon Consults: 10/10/21 01:20 Consult Physician Routine Consulting Provider: Beba May Consult Reason/Comments: syncop Do you want consulting provider notified?: Yes Primary care physician: Dirk Menon [facility] Course: HISTORY OF PRESENT ILLNESS This is a 66-year-old female patient with past medical history of paroxysmal atrial fibrillation on eliquis, hypertension, hyperlipidemia, COPD, gastroesophageal reflux disease, esophageal strictures with ballooning, obstructive sleep apnea not utilizing CPAP, kidney stones, restless leg syndrome, DVT and pulmonary embolism. Patient recently presented to the emergency center at [facility] for chest pain, acute coronary syndrome was ruled out. Echocardiogram revealed ejection fraction 55%, mild mitral regurgitation moderate tricuspid regurgitation, also Lexiscan stress test came back negative for stress-induced ischemia. Patient had been seen and cleared for discharge by waiter/waitress first class. Patient was to follow up Dr. Martinez in the office for 30 day event monitor. Concerning the patient has had a number of falls thought to be related to arrhythmias including a fall that caused a right distal radial fracture status post ORIF on 09/26. Patient was discharged home on 10/09 but return to the emergency center in the evening due to a syncopal event causing a fall with a head and neck injury. Patient presented to [facility] emergency center for evaluation. She was afebrile, heart rate 73, blood pressure 123/73, pulse ox 96% on room air. EKG was sinus bradycardia and heart rate of 52. CBC was unremarkable. Chloride 111, CO2 21, BUN 23 creatinine 0.93, potassium 4.1 sodium 139. Blood sugar 104. INR 0.9. Liver function tests were normal. Albumin 3.2. Troponin negative. ProBNP 281. Urinalysis clear nitrate and leukoesterase negative. CAT scan of the brain and cervical spine revealed mild cerebral atrophy. No acute intracranial abnormality. Spondylotic changes in the lower cervical spine. No fracture. No significant change. Patient has been placed in the observation unit, consult with cardiology appreciated with recommendations for event monitor as an outpatient. Patient will be discharged later today with planned follow-up Dr. Martinez.. 10/11: She had no events overnight. She is expecting to go home. Patient is to sisal picker event monitor at cardiology. Patient was not discharged yesterday as a discharge order was not in the computer but patient was stable at that time. No change in discharge medications. DISCHARGE DIAGNOSES 1. Syncopal episode, possibly related to arrhythmia 2. Multiple falls secondary to possible bradycardia, episodes of afib, arrhythmia, hypotension. 3. Paroxysmal atrial fibrillation, currently in a sinus rhythm. 4. Gastroesophageal reflux disease. 5. Hypertension. 6. Hyperlipidemia. 7. History of pulmonary embolism and DVT. 8. Obstructive sleep apnea. 9. COPD 10. Recent right distal radius fracture s/p ORIF on 09/[address] Ott. Maintain cast. DISCHARGE PLAN Home. Greater than 35 minutes was utilized and coordinating patient's discharge. Impression and plan of care have been directed as dictated by the signing physician. Sita Peralta nurse practitioner acting as scribe for signing physician. Patient Condition at Discharge: Good Plan - Discharge Summary New Discharge Prescriptions: New Ondansetron [Zofran] 4 mg PO Q8HR PRN #30 tab PRN Reason: Nausea Continue FLUoxetine HCL [PROzac] 40 mg PO BID Dextroamphetamine/Amphetamine [Adderall] 20 mg PO BID ALPRAZolam [Xanax] 2 mg PO TID QUEtiapine [SEROquel] 100 mg PO HS@2100 Fluticasone/Vilanterol [Breo Ellipta 200-25 Mcg Inhaler] 1 puff INHALATION RT-DAILY Apixaban [Eliquis] 5 mg PO BID 30 Days #60 tab Atorvastatin [Lipitor] 10 mg PO DAILY QUEtiapine FUMARATE [SEROquel] 25 mg PO TID@0700,1300,1600 Albuterol Sulfate [Ventolin HFA] 2 puff INHALATION RT-Q6H PRN PRN Reason: Shortness Of Breath Cholecalciferol [Vitamin D3 (25 Mcg = 1000 Iu)] 100 mcg PO DAILY Omeprazole 20 mg PO AC-BID lamoTRIgine [LaMICtal] 50 mg PO DAILY HYDROcodone/APAP 7.5-325MG [Beaver 7.5-325] 1 tab PO Q6HR PRN 7 Days #30 tab PRN Reason: Pain Famotidine 20 mg PO BID Changed Metoprolol Tartrate [Lopressor] 12.5 mg PO BID #0 Discharge Medication List ALPRAZolam [Xanax] 2 mg PO TID 12/14/13 [History] Dextroamphetamine/Amphetamine [Adderall] 20 mg PO BID 12/14/13 [History] FLUoxetine HCL [PROzac] 40 mg PO BID 12/14/13 [History] QUEtiapine [SEROquel] 100 mg PO HS@2100 01/04/16 [History] Fluticasone/Vilanterol [Breo Ellipta 200-25 Mcg Inhaler] 1 puff INHALATION RT- DAILY 05/15/18 [History] Apixaban [Eliquis] 5 mg PO BID 30 Days #60 tab 02/05/19 [Rx] Albuterol Sulfate [Ventolin HFA] 2 puff INHALATION RT-Q6H PRN 12/09/19 [History] Atorvastatin [Lipitor] 10 mg PO DAILY 12/09/19 [History] QUEtiapine FUMARATE [SEROquel] 25 mg PO TID@0700,1300,1600 12/09/19 [History] Cholecalciferol [Vitamin D3 (25 Mcg = 1000 Iu)] 100 mcg PO DAILY 12/10/20 [History] Omeprazole 20 mg PO AC-BID 12/10/20 [History] lamoTRIgine [LaMICtal] 50 mg PO DAILY 12/10/20 [History] HYDROcodone/APAP 7.5-325MG [Beaver 7.5-325] 1 tab PO Q6HR PRN 7 Days #30 tab 09/26/21 [Rx] Famotidine 20 mg PO BID 10/06/21 [History] Metoprolol Tartrate [Lopressor] 12.5 mg PO BID #0 10/10/21 [Rx] Ondansetron [Zofran] 4 mg PO Q8HR PRN #30 tab 10/11/21 [Rx] Follow up Appointment(s)/Referral(s): Dirk Menon MD [Primary Care Provider] - 1 Week John Martinez MD [STAFF PHYSICIAN] - 1 Week (event monitor) Patient Instructions/Handouts: Heart Palpitations (DC), Syncope (DC) Activity/Diet/Wound Care/Special Instructions: Event monitor at [facility] Discharge Disposition: HOME SELF-CARE
== END 2021-10-11 11:08 | disposition home or self-care (01) ==
LOC: EC 22:04 → 6NMEDSUR 10-10 01:20
PROVIDERS: ADMIT Internal Medicine; ATTEND Internal Medicine
DX: R55 Syncope and collapse (principal); W19.XXXA Unspecified fall, initial encounter; R29.6 Repeated falls; I11.0 Hypertensive heart disease with heart failure; I50.9 Heart failure, unspecified; I48.0 Paroxysmal atrial fibrillation; E78.5 Hyperlipidemia, unspecified; J44.9 Chronic obstructive pulmonary disease, unspecified; K21.9 Gastro-esophageal reflux disease without esophagitis; G47.33 Obstructive sleep apnea (adult) (pediatric); G25.81 Restless legs syndrome; M79.7 Fibromyalgia; S62.101D Fracture of unspecified carpal bone, right wrist, subsequent encounter for fracture with routine healing; M19.90 Unspecified osteoarthritis, unspecified site; R41.3 Other amnesia; F32.A Depression, unspecified; F41.9 Anxiety disorder, unspecified; Z87.442 Personal history of urinary calculi; Z86.718 Personal history of other venous thrombosis and embolism; Z86.711 Personal history of pulmonary embolism; I08.1 Rheumatic disorders of both mitral and tricuspid valves; I25.2 Old myocardial infarction; F03.90 Unspecified dementia, unspecified severity, without behavioral disturbance, psychotic disturbance, mood disturbance, and anxiety; Z85.828 Personal history of other malignant neoplasm of skin; Z87.19 Personal history of other diseases of the digestive system; Z87.01 Personal history of pneumonia (recurrent); Z98.890 Other specified postprocedural states; Z79.01 Long term (current) use of anticoagulants; Z79.51 Long term (current) use of inhaled steroids; Z79.899 Other long term (current) drug therapy; Z91.018 Allergy to other foods; Z91.09 Other allergy status, other than to drugs and biological substances
CPT/HCPCS: 96376; 96374; 96375; 99285; 36415; 94640 ×2; 93005; 83880; 80053; 83735; 84100; 84484; 85025; 85610; 85730; 81003; 72125; 70450; G0378 ×2; J2270; J2405 ×2

== ENCOUNTER 2021-11-19 13:20 | Emergency (ER) | payer MEDICARE, OTHER ==
[2021-11-19 13:47] VITALS: RESP 18; TEMP 98.4
--- NOTE | 2021-11-19 14:26 | ED ---
Extremity Problem HPI - General Chief complaint: Extremity Problem,Nontraumatic Stated complaint: Possible DVT/ PE Time Seen by Provider: 11/19/21 13:57 Source: patient Mode of arrival: wheelchair Limitations: no limitations - History of Present Illness Initial comments: 66-year-old female with a history of multiple medical problems including PEA and the patient presents with complaints of left-sided lower extremity pain sharp in nature some pain to the left groin area she is concern for a recurrent DVT. She also states she had shortness of breath this morning feels better now. No fevers chills nausea vomiting sweats cough or other symptoms MD Complaint: extremity pain - Related Data Home Medications Medication Instructions Recorded Confirmed ALPRAZolam [Xanax] 2 mg PO TID 12/14/13 11/19/21 Dextroamphetamine/Amphetamine 20 mg PO BID 12/14/13 11/19/21 [Adderall] FLUoxetine HCL [PROzac] 40 mg PO BID 12/14/13 11/19/21 QUEtiapine [SEROquel] 100 mg PO HS@2100 01/04/16 11/19/21 Fluticasone/Vilanterol [Breo 1 puff INHALATION RT-DAILY 05/15/18 11/19/21 Ellipta 200-25 Mcg Inhaler] Albuterol Sulfate [Ventolin HFA] 2 puff INHALATION RT-Q6H PRN 12/09/19 11/19/21 Atorvastatin [Lipitor] 10 mg PO DAILY 12/09/19 11/19/21 QUEtiapine FUMARATE [SEROquel] 25 mg PO TID@0700,1300,1600 12/09/19 11/19/21 Cholecalciferol [Vitamin D3 (25 100 mcg PO DAILY 12/10/20 11/19/21 Mcg = 1000 Iu)] Omeprazole 20 mg PO AC-BID 12/10/20 11/19/21 lamoTRIgine [LaMICtal] 50 mg PO DAILY 12/10/20 11/19/21 Famotidine 20 mg PO BID 10/06/21 11/19/21 Metoprolol Succinate (ER) [Toprol 50 mg PO DAILY 11/19/21 11/19/21 Xl] Montelukast [Singulair] 10 mg PO HS 11/19/21 11/19/21 Ondansetron Odt [Zofran Odt] 4 mg PO Q8H PRN 11/19/21 11/19/21 Previous Rx's Medication Instructions Recorded Apixaban [Eliquis] 5 mg PO BID 30 Days #60 tab 02/05/19 Allergies Allergy/AdvReac Type Severity Reaction Status Date / Time adhesive tape AdvReac Skin Verified 11/19/21 14:54 Tearing parmesan cheese Allergy Rash/Hives Uncoded 11/19/21 13:47 Review of Systems ROS Statement: Those systems with pertinent positive or pertinent negative responses have been documented in the HPI. ROS Other: All systems not noted in ROS Statement are negative. Past Medical History Past Medical History: Atrial Fibrillation, Asthma, Cancer, Heart Failure, COPD, Dementia, Deep Vein Thrombosis (DVT), Fibromyalgia, GERD/Reflux, GI Bleed, Hyperlipidemia, Memory Impairment, Myocardial Infarction ([place]), Osteoarthritis (OA), Pneumonia, Pulmonary Embolus (PE), Sleep Apnea/CPAP/BIPAP Additional Past Medical History / Comment(s): had pneumonia fall 2020, skin cancer with removals, pt states she had a [place] in 2015, hypotension, dementia/memory issues d/t of daughter, esophageal strictures w/ballooning, diverticular disease, anemia, RLS, kidney stones, sinus problems, LORIE-not using CPAP, fx. ribs last fall & was adm. & found to have bad gallbladder, hx. of lung nodules-had lavage, PE's & DVT 3-4 yrs. ago-unsure of cause, takes metoprolol for a-fib, fell last week & fx. right wrist-has half cast/splint Last Myocardial Infarction Date:: 2015 History of Any Multi-Drug Resistant Organisms: None Reported Past Surgical History: Adenoidectomy, Appendectomy, Bariatric Surgery, Breast Surgery, Cholecystectomy, Hernia Repair, Hysterectomy, Joint Replacement, Tonsillectomy Additional Past Surgical History / Comment(s): R breast bx. x2, 3 umbilical hernia repairs, lithotripsies, gastric bypass, L chao benign tumor, multiple skin bx/skin cancer removals, EGD/dilations and colonoscopies. rt hip replacement Past Anesthesia/Blood Transfusion Reactions: Previous Problems w/ Anesthesia Additional Past Anesthesia/Blood Transfusion Reaction / Comment(s): bp dips low, tends to bleed alot w/surgeries, no problems w/blood transfusions Past Psychological History: Anxiety, Depression Smoking Status: Never smoker - Past Family History Brother(s) Family Medical History: Cancer Additional Family Medical History / Comment(s): Psychiatric history also runs in the patient's family. The patient's daughter has committed suicide. The patient's brother and sister and mother all of cancers. Apparently rest ca ncer and esophageal cancer and pancreatic cancer runs in family unable to give detailed history on that. Sister(s) Family Medical History: Cancer Father Family Medical History: Cancer Additional Family Medical History / Comment(s): Father had lung cancer. Mother Family Medical History: Cancer Additional Family Medical History / Comment(s): Mother had pancreatic cancer. General Exam - General Exam Comments Initial Comments: This is a well-developed well-nourished awake alert oriented 3 female Limitations: no limitations General appearance: alert, in no apparent distress Head exam: Present: atraumatic, normocephalic, normal inspection Eye exam: Present: normal appearance, PERRL, EOMI. Absent: scleral icterus, conjunctival injection, periorbital swelling ENT exam: Present: normal exam, mucous membranes moist Neck exam: Present: normal inspection, full ROM. Absent: tenderness, meningismus, lymphadenopathy Respiratory exam: Present: normal lung sounds bilaterally. Absent: respiratory distress, wheezes, rales, rhonchi, stridor Cardiovascular Exam: Present: regular rate, normal rhythm, normal heart sounds. Absent: systolic murmur, diastolic murmur, rubs, gallop, clicks GI/Abdominal exam: Absent: distended, tenderness, guarding, rebound, rigid Extremities exam: Present: normal inspection, full ROM, normal capillary refill. Absent: tenderness, pedal edema, joint swelling, calf tenderness Back exam: Present: normal inspection Neurological exam: Present: alert, oriented X3, CN II-XII intact Psychiatric exam: Present: normal affect, normal mood Skin exam: Present: warm, dry, intact, normal color. Absent: rash Course Vital Signs 11/19/21 13:43 Temperature 98.4 F Pulse Rate 63 Respiratory 18 Rate Blood Pressure 113/71 O2 Sat by Pulse 94 L Oximetry Medical Decision Making - Radiology Data Radiology results: report reviewed (Image reviewed his old reports no evidence of DVT chest x-ray clear), image reviewed Disposition Clinical Impression: Left leg pain, Feared condition not demonstrated Disposition: HOME SELF-CARE Condition: Good Instructions (If sedation given, give patient instructions): Leg Pain (ED) Is patient prescribed a controlled substance at d/c from ED?: No Referrals: Dirk Menon MD [Primary Care Provider] - 1-2 days Decision Date: 11/19/21 Decision Time: 16:10
--- NOTE | 2021-11-19 14:49 | XR ---
EXAMINATION TYPE: XR chest 2V DATE OF EXAM: 11/19/2021 COMPARISON: 10/06/2021 HISTORY: Short of breath TECHNIQUE: 2 views FINDINGS: Heart and mediastinum are normal. Lungs are clear. Diaphragm is normal. There is some oste openia. There is 15% wedging of a midthoracic vertebra. IMPRESSION: No active cardiopulmonary disease. No change.
--- NOTE | 2021-11-19 15:48 | US ---
EXAMINATION TYPE: US venous doppler duplex LE LT DATE OF EXAM: 11/19/2021 2:12 PM COMPARISON: NONE CLINICAL HISTORY: Pain, history of DVT. pain in left leg, h/o PE's and dvt in rt leg years ago, on th inners SIDE PERFORMED: Left TECHNIQUE: The lower extremity deep venous system is examined utilizing real time linear array sonog nya with graded compression, doppler sonography and color-flow sonography. VESSELS IMAGED: Common Femoral Vein Deep Femoral Vein Greater Saphenous Vein * Femoral Vein Popliteal Vein Small Saphenous Vein * Proximal Calf Veins (* superficial vessels) Left Leg: Negative for DVT IMPRESSION: No evidence of deep vein thrombosis in the left leg.
[2021-11-19 17:40] VITALS: BP 115/70; PULSE 66
== END 2021-11-19 16:20 | disposition home or self-care (01) ==
LOC: EC 13:20
DX: M79.605 Pain in left leg (principal); Z71.1 Person with feared health complaint in whom no diagnosis is made; I25.2 Old myocardial infarction; E78.5 Hyperlipidemia, unspecified; I48.91 Unspecified atrial fibrillation; I50.9 Heart failure, unspecified; J44.9 Chronic obstructive pulmonary disease, unspecified; K21.9 Gastro-esophageal reflux disease without esophagitis; F03.90 Unspecified dementia, unspecified severity, without behavioral disturbance, psychotic disturbance, mood disturbance, and anxiety; M19.90 Unspecified osteoarthritis, unspecified site; M79.7 Fibromyalgia; Z79.01 Long term (current) use of anticoagulants; Z79.51 Long term (current) use of inhaled steroids; Z79.899 Other long term (current) drug therapy; Z86.718 Personal history of other venous thrombosis and embolism; Z86.711 Personal history of pulmonary embolism
CPT/HCPCS: 71046; 99284

== ENCOUNTER 2022-08-03 12:52 | Observation (INO) | payer MEDICARE, OTHER ==
[2022-08-03 13:29] LABS: Basophils % (A) 0 %; Eosinophils # (A) 0.1 k/uL (0-0.7); Eosinophils % (A) 3 %; HCT 38.4 % (34.0-46.0); HGB 12.3 gm/dL (11.4-16.0); Lymphocytes # (A) 1.3 k/uL (1.0-4.8); Lymphocytes % (A) 35 %; MCH 30.2 pg (25.0-35.0); MCV 94.4 fL (80.0-100.0); Mean Platelet Volume 9.5; Monocytes # (A) 0.2 k/uL (0-1.0); Monocytes % (A) 5 %; Neutrophils % (A) 55 %; Platelet Count 244 k/uL (150-450); RBC 4.07 m/uL (3.80-5.40); RDW 12.5 % (11.5-15.5); WBC 3.7 k/uL (3.8-10.6)
--- NOTE | 2022-08-03 13:42 | ED ---
General Adult HPI - General Chief complaint: Chest Pain Stated complaint: Palpitations Time Seen by Provider: 08/03/22 13:20 Source: patient, EMS Mode of arrival: EMS Limitations: no limitations - History of Present Illness Initial comments: Dictation was produced using [employer] dictation software. please excuse any grammatical, word or spelling errors. Chief Complaint: 67-year-old female with multiple comorbidities presents emergency department for palpitations and chest pain History of Present Illness: 67-year-old female she has multiple comorbidities per she is on anticoagulation medication street A. fib and DVT. Patient was having a verbal confrontation with her granddaughter for nontender her chores. During that time of stress she started to have symptoms of palpitations. She felt like she was going into A. fib. She also describes having had chest patient states sharp and radiates down her left upper extremity. Associated nausea and diaphoresis. Patient had her vital signs checked by her daughter prior to coming to the ER and found to be bradycardic and hypoxic. Patient denies any fever or constitutional symptoms. The ROS documented in this emergency department record has been reviewed and confirmed by me. Those systems with pertinent positive or negative responses have been documented in the HPI. All other systems are other negative and/or noncontributory. PHYSICAL EXAM: General Impression: Alert and oriented x3, not in acute distress, sleeping HEENT: Normocephalic atraumatic, extra-ocular movements intact, pupils equal and reactive to light bilaterally, mucous membranes moist. Cardiovascular: Heart regular rate and rhythm Chest: Able to complete full sentences, no retractions, no tachypnea Abdomen: abdomen soft, non-tender, non-distended, no organomegaly Musculoskeletal: Pulses present and equal in all extremities, no peripheral edema Motor: no focal deficits noted Neurological: CN II-XII grossly intact, no focal motor or sensory deficits noted Skin: Intact with no visualized rashes Psych: Normal affect and mood ED course: 67-year-old female presents to the emergency department for chief complaint of chest pain and palpitations. Vital signs upon arrival are within acceptable limits. Nursing notes and chart review was performed My EKG interpretation: Ventricular rate 57, sinus bradycardia,. 145, QRS 82, QTC 425. No IN prolongation, no QTC prolongation, no ST or T-wave changes noted. Overall, this EKG is unremarkable Laboratory evaluation obtained. CBC unremarkable. Coag panel metabolic panel is negative. Abdominal labs negative. Troponins negative. X-ray shows perhaps signs of early infiltrate. Patient reevaluated at bedside at 3:00 PM states that she has been having some coughing but she does have a history of chronic pneumonia. Patient will be admitted for cardiac monitoring. Cardiology consulted. Was pt. sent in by a medical professional or institution ([facility]A Munson, FASHION COORDINATOR, urgent care, hospital, or retirement...) When possible be specific @ -No Did you speak to anyone other than the patient for history (EMS, parent, family, police, friend...)? What history was obtained from this source @ -No Did you review nursing and triage notes (agree or disagree)? Why? @ -I reviewed and agree with nursing and triage notes Were old charts reviewed (outside hosp., previous admission, EMS record, old EKG, old radiological studies, urgent care reports/EKG's, retirement records)? Report findings @ -No old charts were reviewed Differential Diagnosis (chest pain, altered mental status, abdominal pain women, abdominal pain men, vaginal bleeding, weakness, fever, dyspnea, syncope, headache, dizziness, GI bleed, back pain, seizure, CVA, palpatations, mental health)? @ -Differential Chest Pain: Stable Angina, Unstable Angina, STEMI, NSTEMI Aortic Dissection, Pneumothorax, Musculoskeletal, Esophageal Spasm GERD, Cholecystitis, Pancreatitis, Zoster, this is not meant to be an all-inclusive list. EKG interpreted by me (3pts min.). @ -As above X-rays interpreted by me (1pt min.). @ -As above CT interpreted by me (1pt min.). @ -None done U/S interpreted by me (1pt. min.). @ -None done What testing was considered but not performed or refused? (CT, X-rays, U/S, labs)? Why? @ -None What meds were considered but not given or refused? Why? @ -None Did you discuss the management of the patient with other professionals (professionals i.e. E[facility] Munson, FASHION COORDINATOR, lab, RT, psych nurse, perinatal social worker, blocking machine operator, teacher, regulatory compliance officer, foster care case manager)? Give summary @ -See above Was smoking cessation discussed for >3mins.? @ -No Was critical care preformed (if so, how long)? @ -No Were there social determinants of health that impacted care today? How? (Homelessness, low income, unemployed, alcoholism, drug addiction, transportation, low edu. Level, literacy, decrease access to med. care, snf, rehab)? @ -Social situation Was there de-escalation of care discussed even if they declined (Discuss DNR or withdrawal of care, Hospice)? DNR status @ -No What co-morbidities impacted this encounter? (DM, HTN, Smoking, COPD, CAD, Cancer, CVA, ARF, Chemo, Hep., AIDS, mental health diagnosis, sleep apnea, m orbid obesity)? @ -None Was patient admitted / discharged? Hospital course, mention meds given and route, prescriptions, significant lab abnormalities, going to OR and other pertinent info. @ -See above Undiagnosed new problem with uncertain prognosis? @ -No Drug Therapy requiring intensive monitoring for toxicity (Heparin, Nitro, Insulin, Cardizem)? @ -No Were any procedures done? @ -No Diagnosis/symptom? @ -Chest pain suspicious for ACS Acute, or Chronic, or Acute on Chronic? @ -Acute Uncomplicated (without systemic symptoms) or Complicated (systemic symptoms)? @ -default Side effects of treatment? @ -No Exacerbation, Progression, or Severe Exacerbation? @ -No Poses a threat to life or bodily function? How? (Chest pain, USA, PA, pneumonia, PE, COPD, DKA, ARF, appy, cholecystitis, CVA, Diverticulitis, Homicidal, Suicidal, threat to staff... and all critical care pts) @ -Yes - Related Data Home Medications Medication Instructions Recorded Confirmed ALPRAZolam [Xanax] 2 mg PO TID 12/14/13 11/19/21 Dextroamphetamine/Amphetamine 20 mg PO BID 12/14/13 11/19/21 [Adderall] FLUoxetine HCL [PROzac] 40 mg PO BID 12/14/13 11/19/21 QUEtiapine [SEROquel] 100 mg PO HS@2100 01/04/16 11/19/21 Fluticasone/Vilanterol [Breo 1 puff INHALATION RT-DAILY 05/15/18 11/19/21 Ellipta 200-25 Mcg Inhaler] Albuterol Sulfate [Ventolin HFA] 2 puff INHALATION RT-Q6H PRN 12/09/19 11/19/21 Atorvastatin [Lipitor] 10 mg PO DAILY 12/09/19 11/19/21 QUEtiapine FUMARATE [SEROquel] 25 mg PO TID@0700,1300,1600 12/09/19 11/19/21 Cholecalciferol [Vitamin D3 (25 100 mcg PO DAILY 12/10/20 11/19/21 Mcg = 1000 Iu)] Omeprazole 20 mg PO AC-BID 12/10/20 11/19/21 lamoTRIgine [LaMICtal] 50 mg PO DAILY 12/10/20 11/19/21 Famotidine 20 mg PO BID 10/06/21 11/19/21 Metoprolol Succinate (ER) [Toprol 50 mg PO DAILY 11/19/21 11/19/21 Xl] Montelukast [Singulair] 10 mg PO HS 11/19/21 11/19/21 Ondansetron Odt [Zofran Odt] 4 mg PO Q8H PRN 11/19/21 11/19/21 Previous Rx's Medication Instructions Recorded Apixaban [Eliquis] 5 mg PO BID 30 Days #60 tab 02/05/19 Allergies Allergy/AdvReac Type Severity Reaction Status Date / Time adhesive tape AdvReac Skin Verified 11/19/21 14:54 Tearing parmesan cheese Allergy Rash/Hives Uncoded 11/19/21 13:47 Review of Systems ROS Statement: Those systems with pertinent positive or pertinent negative responses have been documented in the HPI. ROS Other: All systems not noted in ROS Statement are negative. Past Medical History Past Medical History: Atrial Fibrillation, Asthma, Cancer, Heart Failure, COPD, Dementia, Deep Vein Thrombosis (DVT), Fibromyalgia, GERD/Reflux, GI Bleed, Hyperlipidemia, Memory Impairment, Myocardial Infarction (PA), Osteoarthritis (OA), Pneumonia, Pulmonary Embolus (PE), Sleep Apnea/CPAP/BIPAP Additional Past Medical History / Comment(s): had pneumonia fall 2020, skin cancer with removals, pt states she had a PA in 2015, hypotension, dementia/memory issues d/t of daughter, esophageal strictures w/ballooning, diverticular disease, anemia, RLS, kidney stones, sinus problems, LORIE-not using CPAP, fx. ribs last fall & was adm. & found to have bad gallbladder, hx. of lung nodules-had lavage, PE's & DVT 3-4 yrs. ago-unsure of cause, takes metoprolol for a-fib, fell last week & fx. right wrist-has half cast/splint Last Myocardial Infarction Date:: 2015 History of Any Multi-Drug Resistant Organisms: None Reported Past Surgical History: Adenoidectomy, Appendectomy, Bariatric Surgery, Breast Surgery, Cholecystectomy, Hernia Repair, Hysterectomy, Joint Replacement, Ton sillectomy Additional Past Surgical History / Comment(s): R breast bx. x2, 3 umbilical hernia repairs, lithotripsies, gastric bypass, L chao benign tumor, multiple skin bx/skin cancer removals, EGD/dilations and colonoscopies. rt hip replacement Past Anesthesia/Blood Transfusion Reactions: Previous Problems w/ Anesthesia Additional Past Anesthesia/Blood Transfusion Reaction / Comment(s): bp dips low, tends to bleed alot w/surgeries, no problems w/blood transfusions Past Psychological History: Anxiety, Depression Smoking Status: Never smoker Past Alcohol Use History: None Reported Past Drug Use History: None Reported - Past Family History Brother(s) Family Medical History: Cancer Additional Family Medical History / Comment(s): Psychiatric history also runs in the patient's family. The patient's daughter has committed suicide. The p wiliam's brother and sister and mother all of cancers. Apparently rest cancer and esophageal cancer and pancreatic cancer runs in family unable to give detailed history on that. Sister(s) Family Medical History: Cancer Father Family Medical History: Cancer Additional Family Medical History / Comment(s): Father had lung cancer. Mother Family Medical History: Cancer Additional Family Medical History / Comment(s): Mother had pancreatic cancer. General Exam Limitations: no limitations Course Vital Signs 08/03/22 12:54 Temperature 96.6 F L Pulse Rate 56 L Respiratory 18 Rate Blood Pressure 118/81 O2 Sat by Pulse 96 Oximetry Medical Decision Making - Lab Data Result diagrams: 08/03/22 13:22 08/03/22 13:22 Lab Results 08/03/22 08/03/22 08/03/22 Range/Units 13:22 13:22 13:22 WBC 3.7 L (3.8-10.6) k/uL RBC 4.07 (3.80-5.40) m/uL Hgb 12.3 (11.4-16.0) gm/dL Hct 38.4 (34.0-46.0) % MCV 94.4 (80.0-100.0) fL MCH 30.2 (25.0-35.0) pg MCHC 32.0 (31.0-37.0) g/dL RDW 12.5 (11.5-15.5) % Plt Count 244 (150-450) k/uL MPV 9.5 Neutrophils % 55 % Lymphocytes % 35 % Monocytes % 5 % Eosinophils % 3 % Basophils % 0 % Neutrophils # 2.0 (1.3-7.7) k/uL Lymphocytes # 1.3 (1.0-4.8) k/uL Monocytes # 0.2 (0-1.0) k/uL Eosinophils # 0.1 (0-0.7) k/uL Basophils # 0.0 (0-0.2) k/uL PT 10.2 (9.0-12.0) sec INR 1.0 (<1.2) APTT 23.6 (22.0-30.0) sec Sodium 138 (137-145) mmol/L Potassium 4.7 (3.5-5.1) mmol/L Chloride 110 H (98-107) mmol/L Carbon Dioxide 25 (22-30) mmol/L Anion Gap 3 mmol/L BUN 15 (7-17) mg/dL Creatinine 0.57 (0.52-1.04) mg/dL Est GFR (CKD-EPI)AfAm >90 (>60 ml/min/1.73 sqM) Est GFR (CKD-EPI)NonAf >90 (>60 ml/min/1.73 sqM) Glucose 89 (74-99) mg/dL Plasma Lactic Acid Abhijeet (0.7-2.0) mmol/L Calcium 8.2 L (8.4-10.2) mg/dL Magnesium 1.9 (1.6-2.3) mg/dL Total Bilirubin 0.8 (0.2-1.3) mg/dL AST 36 (14-36) U/L ALT 24 (4-34) U/L Alkaline Phosphatase 76 (38-126) U/L Troponin I (0.000-0.034) ng/mL Total Protein 6.1 L (6.3-8.2) g/dL Albumin 3.5 (3.5-5.0) g/dL 08/03/22 08/03/22 Range/Units 13:22 13:22 WBC (3.8-10.6) k/uL RBC (3.80-5.40) m/uL Hgb (11.4-16.0) gm/dL Hct (34.0-46.0) % MCV (80.0-100.0) fL MCH (25.0-35.0) pg MCHC (31.0-37.0) g/dL RDW (11.5-15.5) % Plt Count (150-450) k/uL MPV Neutrophils % % Lymphocytes % % Monocytes % % Eosinophils % % Basophils % % Neutrophils # (1.3-7.7) k/uL Lymphocytes # (1.0-4.8) k/uL Monocytes # (0-1.0) k/uL Eosinophils # (0-0.7) k/uL Basophils # (0-0.2) k/uL PT (9.0-12.0) sec INR (<1.2) APTT (22.0-30.0) sec Sodium (137-145) mmol/L Potassium (3.5-5.1) mmol/L Chloride (98-107) mmol/L Carbon Dioxide (22-30) mmol/L Anion Gap mmol/L BUN (7-17) mg/dL Creatinine (0.52-1.04) mg/dL Est GFR (CKD-EPI)AfAm (>60 ml/min/1.73 sqM) Est GFR (CKD-EPI)NonAf (>60 ml/min/1.73 sqM) Glucose (74-99) mg/dL Plasma Lactic Acid Abhijeet 1.0 (0.7-2.0) mmol/L Calcium (8.4-10.2) mg/dL Magnesium (1.6-2.3) mg/dL Total Bilirubin (0.2-1.3) mg/dL AST (14-36) U/L ALT (4-34) U/L Alkaline Phosphatase (38-126) U/L Troponin I <0.012 (0.000-0.034) ng/mL Total Protein (6.3-8.2) g/dL Albumin (3.5-5.0) g/dL Disposition Clinical Impression: Chest pain Disposition: ADMITTED IP TO THIS HOSP Condition: Fair Referrals: Dirk Menon MD [Primary Care Provider] - 1-2 days Decision Time: 15:10
[2022-08-03 13:45] LABS: ALT 24 U/L (4-34); African American GFR (CKD) >90 (>60 ml/min/1.73 sqM); Albumin 3.5 g/dL (3.5-5.0); Anion Gap 3 mmol/L; Blood Urea Nitrogen 15 mg/dL (7-17); Calcium 8.2 mg/dL (8.4-10.2); Carbon Dioxide 25 mmol/L (22-30); Chloride 110 mmol/L (98-107); Glucose 89 mg/dL (74-99); Non-African American GFR(CKD) >90 (>60 ml/min/1.73 sqM); Sodium 138 mmol/L (137-145); Total Bilirubin 0.8 mg/dL (0.2-1.3); Total Protein 6.1 g/dL (6.3-8.2)
--- NOTE | 2022-08-03 13:47 | XR ---
EXAMINATION TYPE: XR chest 2V DATE OF EXAM: 08/03/2022 COMPARISON: 11/19/2021 HISTORY: Shortness of breath TECHNIQUE: Frontal and lateral views of the chest are obtained. FINDINGS: Scattered senescent parenchymal changes noted. Hyperinflation compatible with COPD. Mild increased density at the left costophrenic angle could reflect atelectasis or developing infiltr ate. Correlate clinically. Heart size is stable. Mediastinal structures are stable and grossly unremarkable. No evidence for hilar prominence. Degenerative changes dorsal spine. IMPRESSION: 1. Mild increased density at the left costophrenic angle could reflect atelectasis or developing infi ltrate. Correlate clinically.
[2022-08-03 13:54] LABS: AST 36 U/L (14-36); Alkaline Phosphatase 76 U/L (38-126); Magnesium 1.9 mg/dL (1.6-2.3); Potassium 4.7 mmol/L (3.5-5.1)
[2022-08-03 13:55] LABS: Partial Thromboplastin Time 23.6 sec (22.0-30.0); Prothrombin Time 10.2 sec (9.0-12.0)
[2022-08-03] MEDS ORDERED: ASPIRIN 81 MG PO STA (15:03)
[2022-08-03] MEDS ORDERED: AZITHROMYCIN 500 MG TAB PO STA (15:06)
[2022-08-03] MEDS ORDERED: NITROGLYCERIN SL TABS 0.4 MG TAB SUBLINGUAL PRN (15:06)
[2022-08-03] MEDS ORDERED: ONDANSETRON ODT 4 MG TAB PO PRN (16:38)
[2022-08-03] MEDS ORDERED: ALBUTEROL NEBULIZED 2.5 MG/3 ML INHALATION PRN (16:38)
[2022-08-03] MEDS ORDERED: MELATONIN 3 MG TABLET PO PRN (17:02)
[2022-08-03] MEDS ORDERED: ACETAMINOPHEN TAB 325 MG TAB PO PRN (17:02)
[2022-08-03] MEDS ORDERED: NALOXONE 0.4 MG/ML 1 ML VIAL IVP PRN (17:02)
--- NOTE | 2022-08-03 17:47 | P.HPIM ---
History of Present Illness H&P Date: 08/03/22 History of Presenting Illness: Patient is a very pleasant 67-year-old female with a past medical history of CAD with reports of previous NH, hypertension, hyperlipidemia, paroxysmal atrial fibrillation on anticoagulation with Eliquis, previous DVT and PE, fibromyalgia, COPD, anxiety, and depression. She presented to the emergency department via EMS with a chief complaint of chest pain and palpitations. Patient reported she was having a verbal confrontation with her granddaughter regarding need to do her chores when she developed sudden onset palpitations and chest pain accompanied by nausea and diaphoresis. Patient reported pain to midsternal duc st that radiated into her arm and was described as sharp and throbbing. Patient denies having any recent fevers or infections, headache, lightheadedness, dizziness, increase or changes in shortness of breath, increase or changes in chronic cough, abdominal pain, nausea, vomiting, or experiencing any numbness/tingling/weakness/swelling in her extremities. 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 Pt very anxious and agitated throughout assessment. Upon arrival to the emergency department patient's vital signs were unremarkable with blood pressure 118/81, heart rate 56, respiratory rate 18, and SpO2 of 96% on room air. EKG showing normal sinus rhythm at 62 bpm with no noted T wave or ST abnormalities showing no signs of acute ischemia upon personal interpretation. Chest x-ray negative for acute cardiopulmonary process revealing hyperinflation consistent with COPD and reports of increased density at left costophrenic angle likely atelectasis as there are no clinical signs of infection at this time. CBC showing leukopenia with WBC count of 3.7, coags normal findings and CMP showing no significant abnormalities. Troponin negative at less than 0.012. Patient admit aileen under our services with consultation to cardiology. Previous echocardiogram completed 10/07/21 showing normal preserved EF between 55 and 60% with mild mitral and tricuspid regurgitation. Lexiscan stress test completed 10/07/21 was negative showing no scintigraphic evidence for reversible ischemia. Review of systems: Pertinent positives and negatives as discussed in HPI, a complete review of systems was performed and all other systems are negative. Physical exam: Vital signs reviewed and stable. General: Nontoxic, no distress and appears stated age. Derm: Skin warm and dry, normal coloration for ethnicity. Head: Atraumatic, normocephalic and symmetric. Eyes: EOMs intact, no lid lag, and anicteric sclera Mouth: no lip lesions, mucus membranes moist Cardiovascular: regular rate and rhythm with normal S1S2, no murmur, positive posterior tibial pulses bilaterally, and cap refill < 2 seconds. Lungs: Respirations even, regular, and unlabored on room air. Lungs CTA bilaterally, no rhonchi, no rales, no wheezing, and no accessory muscle usage. Abdominal: soft, nontender to palpation, no guarding, no appreciable organomegaly Ext: ROM intact. No gross muscle atrophy, no edema, no contractures Neuro: Speech clear, face symmetrical and CN II-XII grossly intact with no noted focal neuro deficits Psych: Alert and oriented to person, place, time, and situation. Pt anxious and agitated. Assessment and Plan of Care: Chest pain and palpitations, rule out acute coronary event History of CAD with reports of previous NH Hypertension Hyperlipidemia Paroxysmal Atrial fibrillation History of DVT and PE COPD Fibromyalgia Anxiety and depression -Cardiology consulted, appreciate further recommendations -Telemetry monitoring -Trend troponins -Cardiac diet, NPO at midnight -Continue daily cardiac medication regimen with Eliquis, Aspirin, atorvastatin, and metoprolol -Continue daily Xanax, Lamictal, and Seroquel as previously prescribed for anxiety and depression. -Continue home medication regimens for treatment of COPD with Symbicort, Singulair and as needed Ventolin -Lipid profile with a.m. labs. -Echocardiogram with stress test ordered per cardiology -Adderall held at this time, recommend discontinuation as patient presenting with palpitations which is a common adverse reaction of this medication and this was discussed with patient. The patient is admitted with an anticipated less than 2 midnight stay for evaluation of chest pain CODE STATUS: Full code DVT prophylaxis: Eliquis Discussed with: Patient and RN Anticipated discharge date: Tomorrow morning Anticipated discharge place: Home A total of 45 minutes was spent on the care of this complex patient more than 50% of the time was spent in counseling and care coordination. I reviewed the documentation as provided by the EDUARD above, who is the original author of this note. I agree with the documented assessment and plan, with the following changes: none Past Medical History Past Medical History: Atrial Fibrillation, Asthma, Cancer, Heart Failure, COPD, Dementia, Deep Vein Thrombosis (DVT), Fibromyalgia, GERD/Reflux, GI Bleed, Hyperlipidemia, Memory Impairment, Myocardial Infarction (NH), Osteoarthritis (OA), Pneumonia, Pulmonary Embolus (PE), Sleep Apnea/CPAP/BIPAP Additional Past Medical History / Comment(s): had pneumonia fall 2020, skin cancer with removals, pt states she had a NH in 2015, hypotension, dementia/memory issues d/t of daughter, esophageal strictures w/ballooning, diverticular disease, anemia, RLS, kidney stones, sinus problems, LORIE-not using CPAP, fx. ribs last fall & was adm. & found to have bad gallbladder, hx. of lung nodules-had lavage, PE's & DVT 3-4 yrs. ago-unsure of cause, takes metoprolol for a-fib, fell last week & fx. right wrist-has half cast/splint Last Myocardial Infarction Date:: 2015 History of Any Multi-Drug Resistant Organisms: None Reported Past Surgical History: Adenoidectomy, Appendectomy, Bariatric Surgery, Breast Surgery, Cholecystectomy, Hernia Repair, Hysterectomy, Joint Replacement, Tonsillectomy Additional Past Surgical History / Comment(s): R breast bx. x2, 3 umbilical hernia repairs, lithotripsies, gastric bypass, L chao benign tumor, multiple skin bx/skin cancer removals, EGD/dilations and colonoscopies. rt hip replacement Past Anesthesia/Blood Transfusion Reactions: Previous Problems w/ Anesthesia Additional Past Anesthesia/Blood Transfusion Reaction / Comment(s): bp dips low, tends to bleed alot w/surgeries, no problems w/blood transfusions Past Psychological History: Anxiety, Depression Smoking Status: Never smoker Past Alcohol Use History: None Reported Past Drug Use History: None Reported - Past Family History Brother(s) Family Medical History: Cancer Additional Family Medical History / Comment(s): Psychiatric history also runs in the patient's family. The patient's daughter has committed suicide. The patient's brother and sister and mother all of cancers. Apparently rest cancer and esophageal cancer and pancreatic cancer runs in family unable to give detailed history on that. Sister(s) Family Medical History: Cancer Father Family Medical History: Cancer Additional Family Medical History / Comment(s): Father had lung cancer. Mother Family Medical History: Cancer Additional Family Medical History / Comment(s): Mother had pancreatic cancer. Medications and Allergies Home Medications Medication Instructions Recorded Confirmed Type ALPRAZolam [Xanax] 2 mg PO TID 12/14/13 08/03/22 History Dextroamphetamine/Amphetamine 20 mg PO BID 12/14/13 08/03/22 History [Adderall] FLUoxetine HCL [PROzac] 40 mg PO BID 12/14/13 08/03/22 History QUEtiapine [SEROquel] 100 mg PO HS@2100 01/04/16 08/03/22 History Fluticasone/Vilanterol [Breo 1 puff INHALATION RT-DAILY 05/15/18 08/03/22 History Ellipta 200-25 Mcg Inhaler] Apixaban [Eliquis] 5 mg PO BID 30 Days #60 tab 02/05/19 08/03/22 Rx Albuterol Sulfate [Ventolin HFA] 2 puff INHALATION RT-Q6H PRN 12/09/19 08/03/22 History Atorvastatin [Lipitor] 10 mg PO DAILY 12/09/19 08/03/22 History QUEtiapine FUMARATE [SEROquel] 25 mg PO AC-TID 12/09/19 08/03/22 History Cholecalciferol [Vitamin D3 (25 100 mcg PO BID 12/10/20 08/03/22 History Mcg = 1000 Iu)] Omeprazole 20 mg PO AC-BID 12/10/20 08/03/22 History lamoTRIgine [LaMICtal] 50 mg PO W/SUPPER 12/10/20 08/03/22 History Famotidine 20 mg PO BID 10/06/21 08/03/22 History Metoprolol Succinate (ER) [Toprol 50 mg PO DAILY 11/19/21 08/03/22 History Xl] Montelukast [Singulair] 10 mg PO HS 11/19/21 08/03/22 History Ondansetron Odt [Zofran Odt] 4 mg PO Q8H PRN 11/19/21 08/03/22 History Calcium Carbonate [Calcium] 600 mg PO BID 08/03/22 08/03/22 History Allergies Allergy/AdvReac Type Severity Reaction Status Date / Time adhesive tape AdvReac Skin Verified 08/03/22 15:53 Tearing parmesan cheese Allergy Rash/Hives Uncoded 08/03/22 15:53 Physical Exam Osteopathic Statement: *. No significant issues noted on an osteopathic structural exam other than those noted in the History and Physical/Consult. Vitals: Vital Signs Temp Pulse Resp BP Pulse Ox 08/03/22 15:49 57 L 18 125/73 98 08/03/22 12:54 96.6 F L 56 L 18 118/81 96 Intake and Output 08/03/22 08/03/22 08/03/22 06:59 14:59 22:59 Other: Weight 97.522 kg Results CBC & Chem 7: 08/03/22 13:22 08/03/22 13:22 Labs: Abnormal Lab Results - Last 24 Hours (Table) 08/03/22 08/03/22 Range/Units 13:22 13:22 WBC 3.7 L (3.8-10.6) k/uL Chloride 110 H (98-107) mmol/L Calcium 8.2 L (8.4-10.2) mg/dL Total Protein 6.1 L (6.3-8.2) g/dL
[2022-08-03] MEDS: lamoTRIgine 25 MG TAB PO SCH (18:39)
[2022-08-03] MEDS: QUEtiapine 25 MG TAB PO SCH (18:39)
[2022-08-03] MEDS ORDERED: MONTELUKAST 10 MG TAB PO SCH (21:00)
[2022-08-03] MEDS: FLUoxetine HCL 20 MG CAP PO SCH (21:45)
[2022-08-03] MEDS: CALCIUM CARBONATE 500 MG CHEWABLE PO SCH (21:45)
[2022-08-03] MEDS: FAMOTIDINE 20 MG TAB PO SCH (21:45)
[2022-08-03] MEDS: ALPRAZolam 1 MG TAB PO SCH (21:45)
[2022-08-03] MEDS: CHOLECALCIFEROL 25 MCG (1000 IU) TABLET PO SCH (21:45)
[2022-08-03] MEDS: QUEtiapine 100 MG TAB PO SCH (21:45)
[2022-08-03] MEDS: APIXABAN 5 MG TAB PO SCH (21:45)
[2022-08-04] MEDS: QUEtiapine 100 MG TAB PO SCH (06:40)
[2022-08-04] MEDS: QUEtiapine 25 MG TAB PO SCH ×3 (06:43→17:42)
[2022-08-04] MEDS ORDERED: PANTOPRAZOLE 40 MG TABLET PO SCH (07:30)
[2022-08-04] MEDS ORDERED: SYMBICORT 160-4.5 MCG INHALER INHALATION SCH (08:00)
[2022-08-04] MEDS ORDERED: REGADENOSON 0.4 MG/5 ML SYRINGE IV PRN (08:42)
[2022-08-04] MEDS ORDERED: AMINOPHYLLINE 500 MG/20 ML VIAL IV PRN (08:42)
[2022-08-04] MEDS ORDERED: CAFFEINE CITRATE 60 MG/3 ML VIAL IV PRN (08:42)
[2022-08-04] MEDS ORDERED: METOPROLOL SUCCINATE (ER) 50 MG TAB.ER.24H PO SCH (09:00)
[2022-08-04] MEDS ORDERED: ASPIRIN 81 MG PO SCH (09:00)
[2022-08-04] MEDS ORDERED: ASPIRIN 325 MG TAB PO SCH (09:00)
[2022-08-04] MEDS ORDERED: ATORVASTATIN 10 MG TAB PO SCH (09:00)
[2022-08-04 09:33] LABS: Chol/HDL Ratio 2.78 Ratio; LDL Cholesterol,Calculated 81.3 mg/dL (0.0-131.0); VLDL Calculation 18.46 mg/dL (5.00-40.00)
--- NOTE | 2022-08-04 11:23 | CA ---
Lexiscan Nuclear Stress Test Report Name: Becca Mendiola Exam Date: 08/04/2022 10:27 Exam Location: [facility] Ht (in): 69 Wt (lb): 210 BSA: 2.11 Ordering Phys: Temo Hollins MD Referring Phys: Consuelo, Technologist: Leo Foster Age: 67 Gender: F : 1955 Procedure CPT: Indications: Reflex order-Stress test ICD-10 Codes: Patient History: Medications: SEE CHART Meds past 24 hrs: Pretest Chest Pain: STRESS TEST Lexiscan Protocol Exercise Duration (min:sec): 02:[address] Depressions (mm): Angina Score: Pace Score: Resting HR (bpm): 54 Peak HR (bpm): 75 Resting BP (mmHg): 110 / 73 Peak BP (mmHg): 115 / 70 MPHR: 152 Target HR: 129 % MPHR: 49 METS: 1.0 Total Dose: Peak Dose: Atropine: Double Product: 8625 BP Response: Stress Termination: PROTOCOL COMPLETE Stress Symptoms: NO SYMPTOMS Stress Summary: ECG ANALYSIS Resting ECG: Normal sinus rhythm normal axis normal intervals Stress ECG: Patient was given intravenous Lexiscan as a protocol did not have chest pain or diagnostic ST segment depression CONCLUSIONS Negative stress test by EKG criteria Cardiolite portion of the stress test will be reported separately Dr. Temo Hollins MD (Electronically Signed) Final Date: 04 August 2022 11:22
[2022-08-04] MEDS: CALCIUM CARBONATE 500 MG CHEWABLE PO SCH (11:41)
[2022-08-04] MEDS: CHOLECALCIFEROL 25 MCG (1000 IU) TABLET PO SCH (11:41)
[2022-08-04] MEDS: ALPRAZolam 1 MG TAB PO SCH ×2 (11:42→17:42)
[2022-08-04] MEDS: FLUoxetine HCL 20 MG CAP PO SCH (11:42)
[2022-08-04] MEDS: FAMOTIDINE 20 MG TAB PO SCH (11:43)
[2022-08-04 11:52] LABS: Glucose,Whole Blood 89 mg/dL (70-110)
[2022-08-04] MEDS: APIXABAN 5 MG TAB PO SCH (11:53)
--- NOTE | 2022-08-04 11:59 | NM ---
EXAMINATION TYPE: NM stress lexiscan cardiolite DATE OF EXAM: 08/04/2022 COMPARISON: Prior stress test October 07, 2021 HISTORY: Chest pain. History of heart attack and hypercholesterolemia. History of COPD. TECHNIQUE: After the intravenous administration of 9.75 mCi Tc 99m Sestamibi - Cardiolite resting SP ECT images acquired 45 minutes post injection. The patient received 0.4mg Lexiscan, 24.1 mCi Tc 99m Sestamibi - Stress images obtained [address] injection FINDINGS: Review of stress and rest SPECT images demonstrates no distinct perfusion abnormality. Gated analysi s shows normal wall motion with an estimated left ventricular ejection fraction of 67 %. IMPRESSION: No scintigraphic evidence for reversible ischemia. No significant change from prior.
[2022-08-04 15:29] VITALS: BP 90/56
[2022-08-04 15:39] VITALS: PULSE 63; TEMP 98.4
--- NOTE | 2022-08-04 16:40 | CA ---
Transthoracic Echo Report Name: Becca Mendiola Age: 67 Gender: F : 1955 Exam Date: 08/04/2022 12:44 Exam Location: [facility] Ht (in): 69 Wt (lb): 215 Ordering Physician: Temo Hollins MD ([id number]) Attending/Referring Phys: Gurvinder MCKEON Materials Management Clerk Ashley Green RDCS Procedure CPT: Indications: CP Cardiac Hx: Technical Quality: Fair Contrast 1: Total Dose (mL): Contrast 2: Total Dose (mL): MEASUREMENTS (Male / Female) Normal Values 2D ECHO LV Diastolic Diameter PLAX 3.9 cm 4.2 - 5.9 / 3.9 - 5.3 cm LV Systolic Diameter PLAX 2.1 cm IVS Diastolic Thickness 1.2 cm 0.6 - 1.0 / 0.6 - 0.9 cm LVPW Diastolic Thickness 1.2 cm 0.6 - 1.0 / 0.6 - 0.9 cm LV Relative Wall Thickness 0.6 RV Internal Dim ED PLAX 3.2 cm LA Volume 59.6 cm??? 18 - 58 / 22 - 52 cm??? M-MODE Aortic Root Diameter MM 3.1 cm LA Systolic Diameter MM 4.2 cm LA Ao Ratio MM 1.3 AV Cusp Separation MM 1.9 cm DOPPLER AV Peak Velocity 133.3 cm/s AV Peak Gradient 7.1 mmHg AV Mean Velocity 91.6 cm/s AV Mean Gradient 3.8 mmHg AV Velocity Time Integral 26.5 cm LVOT Peak Velocity 68.0 cm/s LVOT Peak Gradient 1.8 mmHg MV Area PHT 1.9 cm??? Mitral E Point Velocity 50.4 cm/s Mitral A Point Velocity 59.7 cm/s Mitral E to A Ratio 0.8 MV Deceleration Time 399.9 ms MV E' Velocity 6.4 cm/s Mitral E to MV E' Ratio 7.8 TR Peak Velocity 259.4 cm/s TR Peak Gradient 26.9 mmHg Right Ventricular Systolic Press 31.1 mmHg FINDINGS Left Ventricle Mildly increased septal wall thickness. Mildly increased posterior wall thickness. Right Ventricle Normal right ventricular size. Right Atrium Normal right atrial size. Left Atrium Mildly increased left atrial volume. Mitral Valve Structurally normal mitral valve. Mitral valve thickened. Mild mitral regurgitation. Aortic Valve No aortic valve stenosis or regurgitation. Tricuspid Valve Structurally normal tricuspid valve. Mild tricuspid regurgitation. Pulmonic Valve Trace pulmonic regurgitation. Pericardium No pericardial effusion. Aorta Normal size aortic root and proximal ascending aorta. CONCLUSIONS Normal LV systolic function Mild mitral regurgitation Previewed by: Dr. Temo Hollins MD (Electronically Signed) Final Date: 04 August 2022 16:40
[2022-08-04 16:58] VITALS: RESP 16
--- NOTE | 2022-08-04 17:29 | P.DS ---
Providers Date of admission: 08/03/22 15:07 Expected date of discharge: 08/04/22 Attending physician: Kimberly Cordero MD Consults: 08/03/22 15:07 Consult Physician Urgent Consulting Provider: Everardo Bose Consult Reason/Comments: chest pain Do you want consulting provider notified?: Yes Primary care physician: Dirk Menon Hospital Course: Discharge Diagnosis: Chest pain and palpitations, acute coronary event ruled out. Troponins negative at less than 0.0123 draws. EKG normal sinus mechanism. Lipid profile unremarkable. Echocardiogram showing normal EF of 55-60%. Lexiscan stress test negative. Adderall discontinued due to recurrent reports of palpitations with history of recurrent episodes of A. fib with RVR, patient was educated that stimulant medications such as Adderall is contraindicated with this medical history and recurrent symptoms. Cardiology recommended outpatient follow-up in our office in one week. History of CAD with reports of previous MT. Continue daily cardiac medication regimen with Eliquis, Aspirin, atorvastatin, and metoprolol. Hypertension, monitor vital signs and continue daily medication regimen with metoprolol. Hyperlipidemia. Lipid profile was unremarkable. Patient to continue daily medication regimen with atorvastatin. Paroxysmal Atrial fibrillation, continue anticoagulation with Eliquis and metoprolol for rate control. Adderall was discontinued as it is contraindicated especially with patient's recurrent reports of palpitations and breakthrough episodes of A. fib RVR. History of DVT and PE. Continue anticoagulant with Eliquis. COPD. Continue home medication regimens for treatment of COPD with Symbicort, Singulair and as needed V Fibromyalgia. Symptomatic care and pain management with Tylenol 650 mg every 6 hours as needed. Anxiety and depression, Continue daily Xanax, Lamictal, and Seroquel as previously prescribed for anxiety and depression. Hospital Course: Patient is a very pleasant 67-year-old female with a past medical history of CAD with reports of previous MT, hypertension, hyperlipidemia, paroxysmal atrial fibrillation on anticoagulation with Eliquis, previous DVT and PE, fibromyalgia, COPD, anxiety, and depression. She presented to the emergency department via EMS with a chief complaint of chest pain and palpitations. Patient reported she was having a verbal confrontation with her granddaughter regarding need to do her chores when she developed sudden onset palpitations and chest pain accompanied by nausea and diaphoresis. Patient reported pain to midsternal chest that radiated into her arm and was described as sharp and throbbing. Patient denies having any recent fevers or infections, headache, lightheadedness, dizziness, increase or changes in shortness of breath, increase or changes in chronic cough, abdominal pain, nausea, vomiting, or experiencing any numbness/tingling/weakness/swelling in her extremities. 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 Pt very anxious and agitated throughout assessment. Upon arrival to the emergency department patient's vital signs were unremarkable with blood pressure 118/81, heart rate 56, respiratory rate 18, and SpO2 of 96% on room air. EKG showing normal sinus rhythm at 62 bpm with no noted T wave or ST abnormalities showing no signs of acute ischemia upon personal interpretation. Chest x-ray negative for acute cardiopulmonary process revealing hyperinflation consistent with COPD and reports of increased density at left costophrenic angle likely atelectasis as there are no clinical signs of infection at this time. CBC showing leukopenia with WBC count of 3.7, coags normal findings and CMP showing no significant abnormalities. Troponin negative at less than 0.012. Patient admitted under our services with consultation to cardiology. Troponins trended overnight and all were negative at less than 0.0123 draws. Lipid profile was unremarkable. Echocardiogram completed revealing normal findings with EF 55-60% and mild mitral regurgitation. Vital signs unremarkable. Blood pressure 115/74, heart rate 61, respiratory rate 17, and SpO2 of 98% on room air. Patient underwent cardiac stress testing and Emily scan was negative for any scintigraphic evidence of reversible ischemia. Cardiology with no further recommendations at this time. Patient medically stable for discharge at this time and to follow up outpatient with her PCP and senior instrumentation engineer as discussed. Adderall was discontinued upon discharge as discussed with patient due to reports of recurrent episodes of atrial fibrillation with RVR and reports of palpitations, Adderall is contraindicated. Physical exam: Vital signs reviewed and stable. General: Nontoxic, no distress and appears stated age. Derm: Skin warm and dry, normal coloration for ethnicity. Head: Atraumatic, normocephalic and symmetric. Eyes: EOMs intact, no lid lag, and anicteric sclera Mouth: no lip lesions, mucus membranes moist Cardiovascular: regular rate and rhythm with normal S1S2, no murmur, positive posterior tibial pulses bilaterally, and cap refill < 2 seconds. Lungs: Respirations even, regular, and unlabored on room air. Lungs CTA bilaterally, no rhonchi, no rales, no wheezing, and no accessory muscle usage. Abdominal: soft, nontender to palpation, no guarding, no appreciable organomegaly Ext: ROM intact. No gross muscle atrophy, no edema, no contractures Neuro: Speech clear, face symmetrical and CN II-XII grossly intact with no noted focal neuro deficits Psych: Alert and oriented to person, place, time, and situation. A total of 35 minutes of time were spent preparing this complex discharge summary. Pt was discharged on 08/04/22 at 5:32 PM. I reviewed the documentation as provided by the EDUARD above, who is the original author of this note. I agree with the documented assessment and plan, with the following changes: none Patient Condition at Discharge: Stable Plan - Discharge Summary Discharge Rx Participant: No New Discharge Prescriptions: New Aspirin 81 mg PO DAILY tab Continue FLUoxetine HCL [PROzac] 40 mg PO BID ALPRAZolam [Xanax] 2 mg PO TID QUEtiapine [SEROquel] 100 mg PO HS@2100 Fluticasone/Vilanterol [Breo Ellipta 200-25 Mcg Inhaler] 1 puff INHALATION RT-DAILY Apixaban [Eliquis] 5 mg PO BID 30 Days #60 tab Atorvastatin [Lipitor] 10 mg PO DAILY QUEtiapine FUMARATE [SEROquel] 25 mg PO AC-TID Albuterol Sulfate [Ventolin HFA] 2 puff INHALATION RT-Q6H PRN PRN Reason: Shortness Of Breath Cholecalciferol [Vitamin D3 (25 Mcg = 1000 Iu)] 100 mcg PO BID Omeprazole 20 mg PO AC-BID lamoTRIgine [LaMICtal] 50 mg PO W/SUPPER Famotidine 20 mg PO BID Metoprolol Succinate (ER) [Toprol XL] 50 mg PO DAILY Montelukast [Singulair] 10 mg PO HS Ondansetron Odt [Zofran ODT] 4 mg PO Q8H PRN PRN Reason: Nausea Calcium Carbonate [Calcium] 600 mg PO BID Discontinued Dextroamphetamine/Amphetamine [Adderall] 20 mg PO BID Discharge Medication List ALPRAZolam [Xanax] 2 mg PO TID 12/14/13 [History] FLUoxetine HCL [PROzac] 40 mg PO BID 12/14/13 [History] QUEtiapine [SEROquel] 100 mg PO HS@2100 01/04/16 [History] Fluticasone/Vilanterol [Breo Ellipta 200-25 Mcg Inhaler] 1 puff INHALATION RT- DAILY 05/15/18 [History] Apixaban [Eliquis] 5 mg PO BID 30 Days #60 tab 02/05/19 [Rx] Albuterol Sulfate [Ventolin HFA] 2 puff INHALATION RT-Q6H PRN 12/09/19 [History] Atorvastatin [Lipitor] 10 mg PO DAILY 12/09/19 [History] QUEtiapine FUMARATE [SEROquel] 25 mg PO AC-TID 12/09/19 [History] Cholecalciferol [Vitamin D3 (25 Mcg = 1000 Iu)] 100 mcg PO BID 12/10/20 [History] Omeprazole 20 mg PO AC-BID 12/10/20 [History] lamoTRIgine [LaMICtal] 50 mg PO W/SUPPER 12/10/20 [History] Famotidine 20 mg PO BID 10/06/21 [History] Metoprolol Succinate (ER) [Toprol XL] 50 mg PO DAILY 11/19/21 [History] Montelukast [Singulair] 10 mg PO HS 11/19/21 [History] Ondansetron Odt [Zofran ODT] 4 mg PO Q8H PRN 11/19/21 [History] Calcium Carbonate [Calcium] 600 mg PO BID 08/03/22 [History] Aspirin 81 mg PO DAILY tab 08/04/22 [Rx] Follow up Appointment(s)/Referral(s): Dirk Menon MD [Primary Care Provider] - 1 Week Temo Hollins MD [STAFF PHYSICIAN] - 1 Week Patient Instructions/Handouts: Angina (DC), Chest Pain (DC) Activity/Diet/Wound Care/Special Instructions: Activity: As tolerated. Take breaks as needed. Diet: Heart healthy and carb consistent diet. Avoid salts, or foods with hidden salts such as canned or boxed foods and frozen dinners. Extra salt makes your heart work harder and traps the fluid in your body for longer. Special Instructions: Take all of your medications as directed and remember to keep all of your doctor's appointments and follow-up as needed. Again, as we discussed highly recommend discontinuation of Adderall. With your history of A. fib and recurrent episodes of RVR in the reports of palpitations Adderall is contraindicated. Thank you for allowing us to participate in your care, it was truly a pleasure having you for our patient!!! Discharge Disposition: HOME SELF-CARE
--- NOTE | 2022-08-04 17:37 | P.PN ---
Subjective Progress Note Date: 08/04/22 Hospital course: Patient is a very pleasant 67-year-old female with a past medical history of CAD with reports of previous ID, hypertension, hyperlipidemia, paroxysmal atrial fibrillation on anticoagulation with Eliquis, previous DVT and PE, fibromyalgia, COPD, anxiety, and depression. She presented to the emergency department via EMS with a chief complaint of chest pain and palpitations. Patient reported she was having a verbal confrontation with her granddaughter regarding need to do her chores when she developed sudden onset palpitations and chest pain accompanied by nausea and diaphoresis. Patient reported pain to midsternal chest that radiated into her arm and was described as sharp and throbbing. Patient denies having any recent fevers or infections, headache, ligh theadedness, dizziness, increase or changes in shortness of breath, increase or changes in chronic cough, abdominal pain, nausea, vomiting, or experiencing any numbness/tingling/weakness/swelling in her extremities. 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 Pt very anxious and agitated throughout assessment. Upon arrival to the emergency department patient's vital signs were unremarkable with blood pressure 118/81, heart rate 56, respiratory rate 18, and SpO2 of 96% on room air. EKG showing normal sinus rhythm at 62 bpm with no noted T wave or ST abnormalities showing no signs of acute ischemia upon personal interpretation. Chest x-ray negative for acute cardiopulmonary process revealing hyperinflation consistent with COPD and reports of increased density at left costophrenic angle likely atelectasis as there are no clinical signs of infection at this time. CBC showing leukopenia with WBC count of 3.7, coags normal findings and CMP showing no significant abnormalities. Troponin negative at less than 0.012. Patient was admitted under our services with consultation to cardiology. Troponins trended overnight and all negative at less than 0.0123 draws. Patient to undergo echocardiogram and Lexiscan stress and pending these results plan is for discharge later this afternoon if results are negative. Physical exam: Patient seen and fully evaluated at bedside this morning. Patient reports she continues to have pain to her left anterior chest throughout the night in addition to one episode of nausea. Patient has been evaluated by cardiology and plan is for patient to undergo echocardiogram and stress testing today. Patient currently denies having any dizziness, lightheadedness, palpitations, or shortness of breath. Patient does report having episodes of palpitations throughout the night with last reported episode reported around 6 AM. Vital signs reviewed and stable. General: Nontoxic, no distress and appears stated age. Derm: Skin warm and dry, normal coloration for ethnicity. Head: Atraumatic, normocephalic and symmetric. Eyes: EOMs intact, no lid lag, and anicteric sclera Mouth: no lip lesions, mucus membranes moist Cardiovascular: regular rate and rhythm with normal S1S2, no murmur, positive posterior tibial pulses bilaterally, and cap refill < 2 seconds. Lungs: Respirations even, regular, and unlabored on room air. Lungs CTA bilaterally, no rhonchi, no rales, no wheezing, and no accessory muscle usage. Abdominal: soft, nontender to palpation, no guarding, no appreciable orga nomegaly Ext: ROM intact. No gross muscle atrophy, no edema, no contractures Neuro: Speech clear, face symmetrical and CN II-XII grossly intact with no noted focal neuro deficits Psych: Alert and oriented to person, place, time, and situation. Assessment and Plan of Care: Chest pain and palpitations, acute coronary event ruled out History of CAD with reports of previous ID Hypertension Hyperlipidemia Paroxysmal Atrial fibrillation History of DVT and PE COPD Fibromyalgia Anxiety and depression -Cardiology consulted, appreciate further recommendations -Telemetry monitoring -Trend troponins -Cardiac diet, NPO at midnight -Continue daily cardiac medication regimen with Eliquis, Aspirin, atorvastatin, and metoprolol -Continue daily Xanax, Lamictal, and Seroquel as previously prescribed for anxiety and depression. -Continue home medication regimens for treatment of COPD with Symbicort, Singulair and as needed Ventolin -Lipid profile unremarkable. -Echocardiogram and Lexiscan stress to be completed -Adderall held at this time, recommend discontinuation of discharge as patient presenting with palpitations which is a common adverse reaction of this medication and this was discussed with patient. CODE STATUS: Full code DVT prophylaxis: Eliquis Discussed with: Patient and RN Anticipated discharge date: Later today pending echocardiogram and stress testing results. Anticipated discharge place: Home A total of 35 minutes was spent on the care of this complex patient more than 50% of the time was spent in counseling and care coordination. I reviewed the documentation as provided by the EDUARD above, who is the original author of this note. I agree with the documented assessment and plan, with the following changes: none Objective - Vital Signs Vital signs: Vital Signs Temp 97.6 F 08/04/22 07:00 Pulse 61 08/04/22 07:00 Resp 17 08/04/22 07:00 BP 115/74 08/04/22 07:00 Pulse Ox 98 08/04/22 07:00 FiO2 Intake & Output 08/03/22 08/04/22 08/04/22 18:59 06:59 18:59 Intake Total 120 Balance 120 Weight 97.522 kg 97.522 kg Intake: Oral 120 Other: Voiding Method Toilet # Voids 2 - Labs CBC & Chem 7: 08/03/22 13:22 08/03/22 13:22 Labs: Abnormal Lab Results - Last 24 Hours (Table) 08/03/22 08/03/22 Range/Units 13:22 13:22 WBC 3.7 L (3.8-10.6) k/uL Chloride 110 H (98-107) mmol/L Calcium 8.2 L (8.4-10.2) mg/dL Total Protein 6.1 L (6.3-8.2) g/dL
[2022-08-04] MEDS: lamoTRIgine 25 MG TAB PO SCH (17:42)
--- NOTE | 2022-08-04 21:13 | CONS ---
CONSULTATION CHIEF COMPLAINT: Chest pain. HISTORY OF PRESENT ILLNESS: Becca is a 67-year-old lady with history of coronary artery disease, hypertension, dyslipidemia, paroxysmal atrial fibrillation, and DVT, who presented to hospital complaining of chest discomfort and palpitations. It initially started with sudden- onset palpitations, and she has subsequently had chest discomfort that is accompanied by nausea, vomiting, and some diaphoresis. She describes it as a sharp precordial pain without definite radiation to neck, arm, or back. The patient has multiplicity of other symptoms including she states that her feet are turning blue, has leg edema, and has some palpitations on and off. At the time of my evaluation, she appears comfortable at rest and is free of symptoms. She had an EKG that revealed sinus bradycardia, but is otherwise within normal limits. She had 3 sets of troponins that are negative, and her hemoglobin is normal at 12. PAST MEDICAL HISTORY: Significant for paroxysmal atrial fibrillation, coronary artery disease, and dyslipidemia. CURRENT MEDICATIONS: Include: 1. Xanax. 2. Ventolin. 3. Eliquis. 4. Lipitor. 5. Prozac. 6. Toprol. 7. Singulair. 8. Seroquel. 9. Lamictal. 10.Omeprazole. ALLERGIES: There are no known drug allergies. FAMILY HISTORY: Negative for premature coronary artery disease. SOCIAL HISTORY: Negative for smoking, EtOH abuse, or drug abuse. REVIEW OF SYSTEMS: A 14 out of 14 review of systems has been performed, pertinents as documented. PHYSICAL EXAMINATION: GENERAL: Comfortable at rest. VITAL SIGNS: Stable. NECK: There is no jugular venous distention. Carotid upstroke is normal. There is no bruit. CHEST: Reveals good air entry bilaterally. HEART: Reveals first and second heart sounds. No gallop. No murmur. No rub ABDOMEN: Soft and nontender. EXTREMITIES: Did not reveal any edema. Peripheral pulses are felt. BAR EXAMINER: Did not reveal focal neurological deficits. LABORATORY DATA: Three sets of troponins are negative. EKG does not reveal ischemic changes. ASSESSMENT: Coronary artery disease, status post prior angioplasty with episodes of unexplained chest pain. PLAN: I will obtain a Lexiscan and echocardiogram for further evaluation. If the stress test is abnormal, we will consider cardiac catheterization by Dr. Martinez, her primary heritage consultant. MMODL / IJN: [id number] /
--- NOTE | 2022-08-06 11:43 | P.DS ---
Providers Date of admission: 08/03/22 15:07 Expected date of discharge: 08/04/22 Attending physician: Kimberly Cordero MD Consults: 08/03/22 15:07 Consult Physician Urgent Consulting Provider: Everardo Bose Consult Reason/Comments: chest pain Do you want consulting provider notified?: Yes [facility] Course: History of Presenting Illness: Patient is a very pleasant 67-year-old female with a past medical history of CAD with reports of previous DE, hypertension, hyperlipidemia, paroxysmal atrial fibrillation on anticoagulation with Eliquis, previous DVT and PE, fibromyalgia, COPD, anxiety, and depression. She presented to the emergency department via EMS with a chief complaint of chest pain and palpitations. Patient reported she was having a verbal confrontation with her granddaughter regarding need to do her chores when she developed sudden onset palpitations and chest pain accompanied by nausea and diaphoresis. Patient reported pain to midsternal chest that radiated into her arm and was described as sharp and throbbing. Patient denies having any recent fevers or infections, headache, lightheadedness, dizziness, increase or changes in shortness of breath, increase or changes in chronic cough, abdominal pain, nausea, vomiting, or experiencing any numbness/tingling/weakness/swelling in her extremities. 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 Pt very anxious and agitated throughout assessment. Upon arrival to the emergency department patient's vital signs were unremarkable with blood pressure 118/81, heart rate 56, respiratory rate 18, and SpO2 of 96% on room air. EKG showing normal sinus rhythm at 62 bpm with no noted T wave or ST abnormalities showing no signs of acute ischemia upon personal interpretation. Chest x-ray negative for acute cardiopulmonary process revealing hyperinflation consistent with COPD and reports of increased density at left costophrenic angle likely atelectasis as there are no clinical signs of infection at this time. CBC showing leukopenia with WBC count of 3.7, coags normal findings and CMP showing no significant abnormalities. Troponin negative at less than 0.012. Patient admitted under our services with consultation to cardiology. Previous echocardiogram completed 10/07/21 showing normal preserved EF between 55 and 60% with mild mitral and tricuspid regurgitation. Lexiscan stress test completed 10/07/21 was negative showing no scintigraphic evidence for reversible ischemia. Review of systems: Pertinent positives and negatives as discussed in HPI, a complete review of systems was performed and all other systems are negative. Physical exam: Vital signs reviewed and stable. General: Nontoxic, no distress and appears stated age. Derm: Skin warm and dry, normal coloration for ethnicity. Head: Atraumatic, normocephalic and symmetric. Eyes: EOMs intact, no lid lag, and anicteric sclera Mouth: no lip lesions, mucus membranes moist Cardiovascular: regular rate and rhythm with normal S1S2, no murmur, positive posterior tibial pulses bilaterally, and cap refill < 2 seconds. Lungs: Respirations even, regular, and unlabored on room air. Lungs CTA bilaterally, no rhonchi, no rales, no wheezing, and no accessory muscle usage. Abdominal: soft, nontender to palpation, no guarding, no appreciable organomega ly Ext: ROM intact. No gross muscle atrophy, no edema, no contractures Neuro: Speech clear, face symmetrical and CN II-XII grossly intact with no noted focal neuro deficits Psych: Alert and oriented to person, place, time, and situation. Pt anxious and agitated. Assessment and Plan of Care: Chest pain and palpitations, rule out acute coronary event History of CAD with reports of previous DE Hypertension Hyperlipidemia Paroxysmal Atrial fibrillation History of DVT and PE COPD Fibromyalgia Anxiety and depression -Cardiology consulted, appreciate further recommendations -Telemetry monitoring -Trend troponins -Cardiac diet, NPO at midnight -Continue daily cardiac medication regimen with Eliquis, Aspirin, atorvastatin, and metoprolol -Continue daily Xanax, Lamictal, and Seroquel as previously prescribed for anxiety and depression. -Continue home medication regimens for treatment of COPD with Symbicort, Singulair and as needed Ventolin -Lipid profile with a.m. labs. -Echocardiogram with stress test ordered per cardiology, negative for stress induced ischemia discharge home and follow up as outpatient Patient Condition at Discharge: Fair Plan - Discharge Summary Discharge Rx Participant: No New Discharge Prescriptions: No Action FLUoxetine HCL [PROzac] 40 mg PO BID Dextroamphetamine/Amphetamine [Adderall] 20 mg PO BID ALPRAZolam [Xanax] 2 mg PO TID QUEtiapine [SEROquel] 100 mg PO HS@2100 Fluticasone/Vilanterol [Breo Ellipta 200-25 Mcg Inhaler] 1 puff INHALATION RT-DAILY Apixaban [Eliquis] 5 mg PO BID 30 Days #60 tab Atorvastatin [Lipitor] 10 mg PO DAILY QUEtiapine FUMARATE [SEROquel] 25 mg PO AC-TID Albuterol Sulfate [Ventolin HFA] 2 puff INHALATION RT-Q6H PRN PRN Reason: Shortness Of Breath Cholecalciferol [Vitamin D3 (25 Mcg = 1000 Iu)] 100 mcg PO BID Omeprazole 20 mg PO AC-BID lamoTRIgine [LaMICtal] 50 mg PO W/SUPPER Famotidine 20 mg PO BID Metoprolol Succinate (ER) [Toprol Xl] 50 mg PO DAILY Montelukast [Singulair] 10 mg PO HS Ondansetron Odt [Zofran Odt] 4 mg PO Q8H PRN PRN Reason: Nausea Calcium Carbonate [Calcium] 600 mg PO BID Discharge Medication List ALPRAZolam [Xanax] 2 mg PO TID 12/14/13 [History] Dextroamphetamine/Amphetamine [Adderall] 20 mg PO BID 12/14/13 [History] FLUoxetine HCL [PROzac] 40 mg PO BID 12/14/13 [History] QUEtiapine [SEROquel] 100 mg PO HS@2100 01/04/16 [History] Fluticasone/Vilanterol [Breo Ellipta 200-25 Mcg Inhaler] 1 puff INHALATION RT- DAILY 05/15/18 [History] Apixaban [Eliquis] 5 mg PO BID 30 Days #60 tab 02/05/19 [Rx] Albuterol Sulfate [Ventolin HFA] 2 puff INHALATION RT-Q6H PRN 12/09/19 [History] Atorvastatin [Lipitor] 10 mg PO DAILY 12/09/19 [History] QUEtiapine FUMARATE [SEROquel] 25 mg PO AC-TID 12/09/19 [History] Cholecalciferol [Vitamin D3 (25 Mcg = 1000 Iu)] 100 mcg PO BID 12/10/20 [History] Omeprazole 20 mg PO AC-BID 12/10/20 [History] lamoTRIgine [LaMICtal] 50 mg PO W/SUPPER 12/10/20 [History] Famotidine 20 mg PO BID 10/06/21 [History] Metoprolol Succinate (ER) [Toprol Xl] 50 mg PO DAILY 11/19/21 [History] Montelukast [Singulair] 10 mg PO HS 11/19/21 [History] Ondansetron Odt [Zofran Odt] 4 mg PO Q8H PRN 11/19/21 [History] Calcium Carbonate [Calcium] 600 mg PO BID 08/03/22 [History] Follow up Appointment(s)/Referral(s): Dirk Menon MD [Primary Care Provider] - 1-2 days
== END 2022-08-04 18:47 | disposition home or self-care (01) ==
LOC: EC 12:52 → 6NMEDSUR 15:07
PROVIDERS: ADMIT Internal Medicine; ATTEND Internal Medicine
DX: R00.2 Palpitations (principal); R07.89 Other chest pain; I25.10 Atherosclerotic heart disease of native coronary artery without angina pectoris; I48.0 Paroxysmal atrial fibrillation; I11.0 Hypertensive heart disease with heart failure; I50.9 Heart failure, unspecified; J44.9 Chronic obstructive pulmonary disease, unspecified; F03.90 Unspecified dementia, unspecified severity, without behavioral disturbance, psychotic disturbance, mood disturbance, and anxiety; M79.7 Fibromyalgia; K21.9 Gastro-esophageal reflux disease without esophagitis; E78.5 Hyperlipidemia, unspecified; I25.2 Old myocardial infarction; G47.33 Obstructive sleep apnea (adult) (pediatric); G25.81 Restless legs syndrome; F41.9 Anxiety disorder, unspecified; F32.A Depression, unspecified; Z85.828 Personal history of other malignant neoplasm of skin; Z86.718 Personal history of other venous thrombosis and embolism; Z86.711 Personal history of pulmonary embolism; Z98.84 Bariatric surgery status; Z79.01 Long term (current) use of anticoagulants; Z79.899 Other long term (current) drug therapy; Z79.82 Long term (current) use of aspirin; Z79.51 Long term (current) use of inhaled steroids
CPT/HCPCS: 99285; 36415; 94640; 94760; 93005; 93017; 93306; 80061; 80053; 83605; 83735; 84484; 85025; 85610; 85730; 71046; 78452; G0378 ×2; A9500; J2785

== ENCOUNTER 2022-10-27 09:11 | Observation (INO) | payer MEDICARE, OTHER ==
--- NOTE | 2022-10-27 09:42 | ED ---
General Adult HPI - General Chief complaint: Syncope Stated complaint: Syncope Time Seen by Provider: 10/27/22 09:15 Source: patient, EMS, RN notes reviewed, old records reviewed Mode of arrival: EMS Limitations: no limitations - History of Present Illness Initial comments: This is a 67-year-old female presents emergency department stating that she has a history of atrial fibrillation. Patient states she got up to turn the TV when she walked over the TV she's got dizzy and she passed out. Patient states she did experience some chest pain at that time. Patient states she woke up she has a headache and she continues to be dizzy. Patient denies any difficulty breathing shortness of breath. Patient insists her blood pressure is elevated if the systolic pressure was over 100. Patient denies any fever chills or cough. Patient has abdominal pain patient denies nausea vomiting. - Related Data Home Medications Medication Instructions Recorded Confirmed ALPRAZolam [Xanax] 2 mg PO TID 12/14/13 10/27/22 FLUoxetine HCL [PROzac] 40 mg PO BID 12/14/13 10/27/22 QUEtiapine [SEROquel] 100 mg PO HS 01/04/16 10/27/22 Fluticasone/Vilanterol [Breo 1 puff INHALATION RT-DAILY 05/15/18 10/27/22 Ellipta 200-25 Mcg Inhaler] Albuterol Sulfate [Ventolin HFA] 2 puff INHALATION RT-Q6H PRN 12/09/19 10/27/22 Atorvastatin [Lipitor] 10 mg PO DAILY 12/09/19 10/27/22 Cholecalciferol [Vitamin D3 (25 100 mcg PO BID 12/10/20 10/27/22 Mcg = 1000 Iu)] Omeprazole 20 mg PO AC-BID 12/10/20 10/27/22 lamoTRIgine [LaMICtal] 50 mg PO W/SUPPER 12/10/20 10/27/22 Famotidine 20 mg PO BID 10/06/21 10/27/22 Metoprolol Succinate (ER) [Toprol 50 mg PO DAILY 11/19/21 10/27/22 XL] Montelukast [Singulair] 10 mg PO HS 11/19/21 10/27/22 Ondansetron Odt [Zofran ODT] 4 mg PO Q8H PRN 11/19/21 10/27/22 Calcium Carbonate [Calcium] 600 mg PO BID 08/03/22 10/27/22 QUEtiapine [SEROquel] 50 mg PO W/SUPPER 08/13/22 10/27/22 Dextroamphetamine/Amphetamine 20 mg PO BID@0800,1500 10/27/22 10/27/22 [Adderall] HYDROcodone/APAP 5-325MG [[place] 1 tab PO BID PRN 10/27/22 10/27/22 5-325] Isosorbide Mononitrate ER [Imdur] 30 mg PO HS 10/27/22 10/27/22 QUEtiapine [SEROquel] 25 mg PO DAILY PRN 10/27/22 10/27/22 Previous Rx's Medication Instructions Recorded Apixaban [Eliquis] 5 mg PO BID 30 Days #60 tab 02/05/19 Aspirin 81 mg PO DAILY tab 08/04/22 Allergies Allergy/AdvReac Type Severity Reaction Status Date / Time adhesive tape AdvReac Skin Verified 10/27/22 10:10 Tearing parmesan cheese Allergy Rash/Hives Uncoded 10/27/22 10:10 Review of Systems ROS Statement: Those systems with pertinent positive or pertinent negative responses have been documented in the HPI. ROS Other: All systems not noted in ROS Statement are negative. Past Medical History Past Medical History: Atrial Fibrillation, Asthma, Cancer, Heart Failure, COPD, Dementia, Deep Vein Thrombosis (DVT), Fibromyalgia, GERD/Reflux, GI Bleed, Hyperlipidemia, Memory Impairment, Myocardial Infarction (VA), Osteoarthritis (OA), Pneumonia, Pulmonary Embolus (PE), Sleep Apnea/CPAP/BIPAP Additional Past Medical History / Comment(s): had pneumonia fall 2020, skin cancer with removals, pt states she had a VA in 2016, hypotension, dementia/memory issues d/t of daughter, esophageal strictures w/ballooning, diverticular disease, anemia, RLS, kidney stones, sinus problems, LORIE-not using CPAP, fx. ribs & was adm. & found to have bad gallbladder, hx. of lung nodules-had lavage, PE's & DVT-unsure of cause, takes metoprolol for a-fib, fell and fx. right wrist-has half cast/splint Last Myocardial Infarction Date:: 2015 History of Any Multi-Drug Resistant Organisms: None Reported Past Surgical History: Adenoidectomy, Appendectomy, Bariatric Surgery, Breast Surgery, Cholecystectomy, Hernia Repair, Hysterectomy, Joint Replacement, Tonsi llectomy Additional Past Surgical History / Comment(s): R breast bx. x2, 3 umbilical hernia repairs, lithotripsies, gastric bypass, L chao benign tumor, multiple skin bx/skin cancer removals, EGD/dilations and colonoscopies. rt hip replacement Past Anesthesia/Blood Transfusion Reactions: Previous Problems w/ Anesthesia Additional Past Anesthesia/Blood Transfusion Reaction / Comment(s): bp dips low, tends to bleed alot w/surgeries, no problems w/blood transfusions Past Psychological History: Anxiety, Depression Smoking Status: Never smoker Past Alcohol Use History: None Reported Past Drug Use History: None Reported - Past Family History Brother(s) Family Medical History: Cancer Additional Family Medical History / Comment(s): Psychiatric history also runs in the patient's family. The patient's daughter has committed suicide. The pat ient's brother and sister and mother all of cancers. Apparently rest cancer and esophageal cancer and pancreatic cancer runs in family unable to give detailed history on that. Sister(s) Family Medical History: Cancer Father Family Medical History: Cancer Additional Family Medical History / Comment(s): Father had lung cancer. Mother Family Medical History: Cancer Additional Family Medical History / Comment(s): Mother had pancreatic cancer. General Exam - General Exam Comments Initial Comments: GENERAL: Patient is well-developed and well-nourished. Patient is nontoxic and well- hydrated and is in mild distress. ENT: Neck is soft and supple. No significant lymphadenopathy is noted. Oropharynx is clear. Moist mucous membranes. Neck has full range of motion without eliciting any pain. EYES: The sclera were anicteric and conjunctiva were pink and moist. Extraocular move ments were intact and pupils were equal round and reactive to light. Eyelids were unremarkable. PULMONARY: Unlabored respirations. Good breath sounds bilaterally. No audible rales rhonchi or wheezing was noted. CARDIOVASCULAR: There is a regular rate and rhythm without any murmurs gallops or rubs. ABDOMEN: Soft and nontender with normal bowel sounds. SKIN: Skin is clear with no lesions or rashes and otherwise unremarkable. NEUROLOGIC: Patient is alert and oriented x3. Cranial nerves II through XII are grossly intact. Motor and sensory are also intact. Normal speech, volume and content. Symmetrical smile. MUSCULOSKELETAL: Normal extremities with adequate strength and full range of motion. LYMPHATICS: No significant lymphadenopathy is noted PSYCHIATRIC: Normal psychiatric evaluation. Limitations: no limitations Course Vital Signs 10/27/22 10/27/22 10/27/22 09:12 10:20 11:37 Temperature 98.1 F Pulse Rate 64 70 62 Respiratory 18 18 18 Rate Blood Pressure 133/78 115/45 133/87 O2 Sat by Pulse 97 99 97 Oximetry Medical Decision Making - Medical Decision Making EKG was interpreted by myself. EKG shows a sinus rhythm at 71 bpm CO interval 151 QRSs 84 Q-T intervals 10/26/1989 QTC is 431. Patient's EKG shows no ST segment elevation or depression. Was pt. sent in by a medical professional or institution (, PA, ELECTRIC VEHICLE ELECTRICIAN, urgent care, hospital, or assisted...) When possible be specific @ -No Did you speak to anyone other than the patient for history (EMS, parent, family, police, friend...)? What history was obtained from this source @ -No Did you review nursing and triage notes (agree or disagree)? Why? @ -I reviewed and agree with nursing and triage notes Were old charts reviewed (outside hosp., previous admission, EMS record, old EKG, old radiological studies, urgent care reports/EKG's, assisted records)? Report findings @ -Reviewed prior lab work in prior charts Differential Diagnosis (chest pain, altered mental status, abdominal pain women, abdominal pain men, vaginal bleeding, weakness, fever, dyspnea, syncope, heada duc, dizziness, GI bleed, back pain, seizure, CVA, palpatations, mental health, musculoskeletal)? @ -Differential Syncope: Valvular disease, hypertrophic cardiomyopathy, pulmonary embolism, tamponade, tachycardia, bradycardia, VA, hypovolemia, hemorrhage, dissection, anemia, int racranial hemorrhage, seizure, hypoglycemia, carbon monoxide poisoning, this is not meant to be an all-inclusive list. EKG interpreted by me (3pts min.). @ -As above X-rays interpreted by me (1pt min.). @ -Chest x-ray was interpreted by myself that shows no acute abnormality CT interpreted by me (1pt min.). @ -CT was interpreted by myself shows no acute abnormality U/S interpreted by me (1pt. min.). @ -None done What testing was considered but not performed or refused? (CT, X-rays, U/S, labs)? Why? @ -None What meds were considered but not given or refused? Why? @ -None Did you discuss the management of the patient with other professionals (prof santoshs i.e. , PA, ELECTRIC VEHICLE ELECTRICIAN, lab, RT, psych nurse, social worker health services, solvent plant treater, teacher, development officer, telephonic nurse case manager)? Give summary @ -Spoke with Dr. Menon he agreed to admit the patient. Was smoking cessation discussed for >3mins.? @ -No Was critical care preformed (if so, how long)? @ -No Were there social determinants of health that impacted care today? How? (Homelessness, low income, unemployed, alcoholism, drug addiction, transportation, low edu. Level, literacy, decrease access to med. care, intermediate, rehab)? @ -No Was there de-escalation of care discussed even if they declined (Discuss DNR or withdrawal of care, Hospice)? DNR status @ -No What co-morbidities impacted this encounter? (DM, HTN, Smoking, COPD, CAD, Cancer, CVA, ARF, Chemo, Hep., AIDS, mental health diagnosis, sleep apnea, morbid obesity)? @ -None Was patient admitted / discharged? Hospital course, mention meds given and route, prescriptions, significant lab abnormalities, going to OR and other per tinent info. @ -Patient's lab work showed no acute abnormality CT of the brain and chest x- ray were both normal. Patient was in no distress while in the emergency department. She continued complaining of dizziness and occasional chest pain so I spoke with Dr. Menon he wanted the patient admitted admitted the patient I consult cardiology Undiagnosed new problem with uncertain prognosis? @ -No Drug Therapy requiring intensive monitoring for toxicity (Heparin, Nitro, Insulin, Cardizem)? @ -No Were any procedures done? @ -No Diagnosis/symptom? @ -Dizziness Acute, or Chronic, or Acute on Chronic? @ -Acute Uncomplicated (without systemic symptoms) or Complicated (systemic symptoms)? @ -Uncomplicated Side effects of treatment? @ -No Exacerbation, Progression, or Severe Exacerbation? @ -No Poses a threat to life or bodily function? How? (Chest pain, USA, VA, pneumonia, PE, COPD, DKA, ARF, appy, cholecystitis, CVA, Diverticulitis, Homicidal, Suicidal, threat to staff... and all critical care pts) @ -No Diagnosis/symptom? @ -Chest pain Acute, or Chronic, or Acute on Chronic? @ -Acute Uncomplicated (without systemic symptoms) or Complicated (systemic symptoms)? @ -Complicated Side effects of treatment? @ -none Exacerbation, Progression, or Severe Exacerbation] @ -no Poses a threat to life or bodily function? @ -no Diagnosis/symptom? @ -Syncope Acute, or Chronic, or Acute on Chronic? @ -Acute Uncomplicated (without systemic symptoms) or Complicated (systemic symptoms)? @ -Complicated Side effects of treatment? @ -none Exacerbation, Progression, or Severe Exacerbation] @ -no Poses a threat to life or bodily function? @ -no - Lab Data Result diagrams: 10/27/22 09:30 10/27/22 09:30 Lab Results 10/27/22 10/27/22 10/27/22 Range/Units 09:30 09:30 09:30 WBC 3.9 (3.8-10.6) k/uL RBC 4.12 (3.80-5.40) m/uL Hgb 12.6 (11.4-16.0) gm/dL Hct 39.3 (34.0-46.0) % MCV 95.6 (80.0-100.0) fL MCH 30.5 (25.0-35.0) pg MCHC 32.0 (31.0-37.0) g/dL RDW 12.8 (11.5-15.5) % Plt Count 229 (150-450) k/uL MPV 9.0 Neutrophils % 58 % Lymphocytes % 29 % Monocytes % 8 % Eosinophils % 2 % Basophils % 1 % Neutrophils # 2.3 (1.3-7.7) k/uL Lymphocytes # 1.1 (1.0-4.8) k/uL Monocytes # 0.3 (0-1.0) k/uL Eosinophils # 0.1 (0-0.7) k/uL Basophils # 0.0 (0-0.2) k/uL PT 11.5 (9.0-12.0) sec INR 1.1 (<1.2) APTT 24.4 (22.0-30.0) sec Sodium 141 (137-145) mmol/L Potassium 4.4 (3.5-5.1) mmol/L Chloride 108 H (98-107) mmol/L Carbon Dioxide 27 (22-30) mmol/L Anion Gap 6 mmol/L BUN 18 H (7-17) mg/dL Creatinine 0.66 (0.52-1.04) mg/dL Est GFR (CKD-EPI)AfAm >90 (>60 ml/min/1.73 sqM) Est GFR (CKD-EPI)NonAf >90 (>60 ml/min/1.73 sqM) Glucose 89 (74-99) mg/dL Calcium 8.4 (8.4-10.2) mg/dL Magnesium 1.9 (1.6-2.3) mg/dL Total Bilirubin 0.5 (0.2-1.3) mg/dL AST 24 (14-36) U/L ALT 19 (4-34) U/L Alkaline Phosphatase 91 (38-126) U/L Troponin I (0.000-0.034) ng/mL Total Protein 5.9 L (6.3-8.2) g/dL Albumin 3.3 L (3.5-5.0) g/dL 10/27/22 Range/Units 09:30 WBC (3.8-10.6) k/uL RBC (3.80-5.40) m/uL Hgb (11.4-16.0) gm/dL Hct (34.0-46.0) % MCV (80.0-100.0) fL MCH (25.0-35.0) pg MCHC (31.0-37.0) g/dL RDW (11.5-15.5) % Plt Count (150-450) k/uL MPV Neutrophils % % Lymphocytes % % Monocytes % % Eosinophils % % Basophils % % Neutrophils # (1.3-7.7) k/uL Lymphocytes # (1.0-4.8) k/uL Monocytes # (0-1.0) k/uL Eosinophils # (0-0.7) k/uL Basophils # (0-0.2) k/uL PT (9.0-12.0) sec INR (<1.2) APTT (22.0-30.0) sec Sodium (137-145) mmol/L Potassium (3.5-5.1) mmol/L Chloride (98-107) mmol/L Carbon Dioxide (22-30) mmol/L Anion Gap mmol/L BUN (7-17) mg/dL Creatinine (0.52-1.04) mg/dL Est GFR (CKD-EPI)AfAm (>60 ml/min/1.73 sqM) Est GFR (CKD-EPI)NonAf (>60 ml/min/1.73 sqM) Glucose (74-99) mg/dL Calcium (8.4-10.2) mg/dL Magnesium (1.6-2.3) mg/dL Total Bilirubin (0.2-1.3) mg/dL AST (14-36) U/L ALT (4-34) U/L Alkaline Phosphatase (38-126) U/L Troponin I <0.012 (0.000-0.034) ng/mL Total Protein (6.3-8.2) g/dL Albumin (3.5-5.0) g/dL Disposition Clinical Impression: Syncope, Dizziness, Chest pain Disposition: ADMITTED IP TO THIS HOSP Referrals: Dirk Menon MD [Primary Care Provider] - 1-2 days Time of Disposition: 10:48
[2022-10-27 09:54] LABS: Basophils % (A) 1 %; Eosinophils # (A) 0.1 k/uL (0-0.7); Eosinophils % (A) 2 %; HCT 39.3 % (34.0-46.0); HGB 12.6 gm/dL (11.4-16.0); Lymphocytes # (A) 1.1 k/uL (1.0-4.8); Lymphocytes % (A) 29 %; MCH 30.5 pg (25.0-35.0); MCV 95.6 fL (80.0-100.0); Monocytes # (A) 0.3 k/uL (0-1.0); Monocytes % (A) 8 %; Neutrophils # (A) 2.3 k/uL (1.3-7.7); Neutrophils % (A) 58 %; Platelet Count 229 k/uL (150-450); RBC 4.12 m/uL (3.80-5.40); RDW 12.8 % (11.5-15.5); WBC 3.9 k/uL (3.8-10.6)
--- NOTE | 2022-10-27 09:59 | XR ---
EXAMINATION TYPE: XR chest 2V DATE OF EXAM: 10/27/2022 COMPARISON: 08/13/2022 HISTORY: Chest pain TECHNIQUE: Frontal and lateral views of the chest are obtained. FINDINGS: The heart size is normal. The cardiomediastinal silhouette and pulmonary vasculature are within michelle l limits. There is no focal consolidation, significant pleural effusion, or pneumothorax. There is vallejo btle superior endplate depression of a midthoracic vertebral body, which appears to be unchanged when compared to previous examination. IMPRESSION: No acute cardiopulmonary process.
[2022-10-27 10:03] LABS: INR 1.1 (<1.2); Partial Thromboplastin Time 24.4 sec (22.0-30.0); Prothrombin Time 11.5 sec (9.0-12.0)
[2022-10-27 10:05] LABS: ALT 19 U/L (4-34); AST 24 U/L (14-36); African American GFR (CKD) >90 (>60 ml/min/1.73 sqM); Albumin 3.3 g/dL (3.5-5.0); Alkaline Phosphatase 91 U/L (38-126); Anion Gap 6 mmol/L; Blood Urea Nitrogen 18 mg/dL (7-17); Calcium 8.4 mg/dL (8.4-10.2); Carbon Dioxide 27 mmol/L (22-30); Chloride 108 mmol/L (98-107); Glucose 89 mg/dL (74-99); Magnesium 1.9 mg/dL (1.6-2.3); Non-African American GFR(CKD) >90 (>60 ml/min/1.73 sqM); Potassium 4.4 mmol/L (3.5-5.1); Sodium 141 mmol/L (137-145); Total Bilirubin 0.5 mg/dL (0.2-1.3); Total Protein 5.9 g/dL (6.3-8.2)
--- NOTE | 2022-10-27 10:17 | CT ---
EXAMINATION TYPE: CT brain wo con DATE OF EXAM: 10/27/2022 HISTORY: syncope CT DLP: 1099.4 mGycm. Automated Exposure Control for Dose Reduction was Utilized. TECHNIQUE: CT scan of the head is performed without contrast. COMPARISON: CT brain October 09, 2021. FINDINGS: There is no acute intracranial hemorrhage or midline shift identified. There is mild diff use ventricular and sulcal prominence redemonstrated. Bilateral basal ganglia calcifications are agai n seen. There is low-attenuation in the periventricular white matter consistent with chronic small v essel ischemic change. Mild to moderate mucosal thickening involving inferior right frontal and anter ior ethmoid sinuses is present current study. IMPRESSION: No acute intracranial hemorrhage or midline shift. There is mild diffuse cerebral atrop hy and mild chronic small vessel ischemic change redemonstrated. No significant change from most rec ent prior CT.
[2022-10-27] MEDS ORDERED: NITROGLYCERIN SL TABS 0.4 MG TAB SUBLINGUAL PRN (12:15)
[2022-10-27] MEDS ORDERED: ALBUTEROL NEBULIZED 2.5 MG/3 ML INHALATION PRN (13:44)
[2022-10-27] MEDS ORDERED: QUEtiapine 25 MG TAB PO PRN (13:44)
[2022-10-27] MEDS: ALPRAZolam 1 MG TAB PO SCH ×2 (16:20→21:51)
[2022-10-27] MEDS: lamoTRIgine 25 MG TAB PO SCH (17:57)
[2022-10-27] MEDS: QUEtiapine 50 MG TAB PO SCH (17:57)
[2022-10-27] MEDS: HYDROcodone/APAP 5-325MG 1 EACH TAB PO PRN (17:57)
[2022-10-27] MEDS: PANTOPRAZOLE 40 MG TABLET PO SCH (17:57)
[2022-10-27] MEDS: NITROGLYCERIN OINT 1 INCH/GM PACKET TOPICAL SCH (17:58)
[2022-10-27] MEDS: SYMBICORT 160-4.5 MCG INHALER INHALATION SCH (18:25)
[2022-10-27] MEDS ORDERED: ISOSORBIDE MONONITRATE ER 30 MG TAB.ER.24H PO SCH (21:00)
[2022-10-27] MEDS: FLUoxetine HCL 20 MG CAP PO SCH (21:51)
[2022-10-27] MEDS: QUEtiapine 100 MG TAB PO SCH (21:51)
[2022-10-27] MEDS: CALCIUM CARBONATE 500 MG CHEWABLE PO SCH (21:51)
[2022-10-27] MEDS: CHOLECALCIFEROL 25 MCG (1000 IU) TABLET PO SCH (21:51)
[2022-10-27] MEDS: FAMOTIDINE 20 MG TAB PO SCH (21:52)
[2022-10-27] MEDS: APIXABAN 5 MG TAB PO SCH (21:52)
[2022-10-27] MEDS: MONTELUKAST 10 MG TAB PO SCH (21:52)
[2022-10-28] MEDS: NITROGLYCERIN OINT 1 INCH/GM PACKET TOPICAL SCH ×4 (00:07→17:32)
[2022-10-28] MEDS: HYDROcodone/APAP 5-325MG 1 EACH TAB PO PRN (05:41)
[2022-10-28] MEDS: PANTOPRAZOLE 40 MG TABLET PO SCH ×2 (05:41→17:36)
[2022-10-28] MEDS ORDERED: MECLIZINE 25 MG TAB PO PRN (08:57)
[2022-10-28] MEDS: SYMBICORT 160-4.5 MCG INHALER INHALATION SCH ×2 (08:58→20:47)
[2022-10-28] MEDS ORDERED: ASPIRIN 81 MG PO SCH (09:00)
[2022-10-28] MEDS ORDERED: ASPIRIN 325 MG TAB PO SCH (09:00)
[2022-10-28] MEDS: ALPRAZolam 1 MG TAB PO SCH ×2 (09:54→16:04)
[2022-10-28 10:07] LABS: LDL Cholesterol,Calculated 101.7 mg/dL (0.0-131.0); VLDL Calculation 18.98 mg/dL (5.00-40.00)
[2022-10-28] MEDS: ATORVASTATIN 10 MG TAB PO SCH (10:25)
[2022-10-28] MEDS: APIXABAN 5 MG TAB PO SCH ×2 (10:25→21:03)
[2022-10-28] MEDS: FAMOTIDINE 20 MG TAB PO SCH ×2 (10:25→21:03)
[2022-10-28] MEDS: CHOLECALCIFEROL 25 MCG (1000 IU) TABLET PO SCH ×2 (10:26→21:03)
[2022-10-28] MEDS: CALCIUM CARBONATE 500 MG CHEWABLE PO SCH ×2 (10:26→21:03)
[2022-10-28] MEDS: METOPROLOL SUCCINATE (ER) 50 MG TAB.ER.24H PO SCH (10:27)
[2022-10-28] MEDS: FLUoxetine HCL 20 MG CAP PO SCH ×2 (10:27→21:03)
[2022-10-28] MEDS: HYDROmorphone 0.5 MG/0.5 ML SYRINGE IVP PRN ×2 (10:37→16:04)
--- NOTE | 2022-10-28 12:16 | P.CRDCN ---
History of Present Illness Consult date: 10/28/22 Requesting physician: Dirk Menon Reason for Consult (text): chest pain, dizziness Chief complaint: syncope History of present illness: This is a 67-year-old patient who follows with Dr. Wei in the office. She has a history of proximal atrial fibrillation, hypertension and dyslipidemia. Also has a history of chronic pain and anxiety. Presented to the emergency department with complaints of having a syncopal episode at home. Also questionable episode of chest pain. She did have a Lexiscan MPI done here in July of this year that was normal and echocardiogram at that time as well w hich showed a normal ejection fraction with mild MR. She apparently sat down with cup of coffee and got up to turn her television on at which time she became quite dizzy, everything went black and she had a brief syncopal episode. According to her her blood pressure has been running in the 60s systolic at home. EKG on admission showed sinus mechanism with no evidence of ischemia. Chest x-ray showed no acute cardiopulmonary process. Computed tomography scan of the brain showed no acute intracranial hemorrhage or midline shift, mild diffuse cerebral atrophy and mild chronic small vessel ischemic change 3 demonstrated but no significant change from most recent prior CT. At the time of her syncopal episode she did complain of palpitations and felt that she could have been in atrial fibrillation however this is not seen upon arrival. Her blood pressure while in EMS was apparently 190s systolic. Upon examination she complains mostly of severe headache. Denies current complaints of chest discomfort. Denies any orthopnea or PND. Denies any lower extremity edema this time. Past Medical History Past Medical History: Atrial Fibrillation, Asthma, Cancer, Heart Failure, COPD, Dementia, Deep Vein Thrombosis (DVT), Fibromyalgia, GERD/Reflux, GI Bleed, Hyperlipidemia, Memory Impairment, Myocardial Infarction (PR), Osteoarthritis (OA), Pneumonia, Pulmonary Embolus (PE), Sleep Apnea/CPAP/BIPAP Additional Past Medical History / Comment(s): had pneumonia fall 2020, skin cancer with removals, pt states she had a PR in 2015, hypotension, dementia/memory issues d/t of daughter, esophageal strictures w/ballooning, diverticular disease, anemia, RLS, kidney stones, sinus problems, LORIE-not using CPAP, fx. ribs & was adm. & found to have bad gallbladder, hx. of lung nodules-had lavage, PE's & DVT-unsure of cause, takes metoprolol for a-fib, fell and fx. right wrist-has half cast/splint Last Myocardial Infarction Date:: 2015 History of Any Multi-Drug Resistant Organisms: None Reported Past Surgical History: Adenoidectomy, Appendectomy, Bariatric Surgery, Breast Surgery, Cholecystectomy, Hernia Repair, Hysterectomy, Joint Replacement, Tonsillectomy Additional Past Surgical History / Comment(s): R breast bx. x2, 3 umbilical hernia repairs, lithotripsies, gastric bypass, L chao benign tumor, multiple skin bx/skin cancer removals, EGD/dilations and colonoscopies. rt hip replacement Past Anesthesia/Blood Transfusion Reactions: Previous Problems w/ Anesthesia Additional Past Anesthesia/Blood Transfusion Reaction / Comment(s): bp dips low, tends to bleed alot w/surgeries, no problems w/blood transfusions Past Psychological History: Anxiety, Depression Smoking Status: Never smoker Past Alcohol Use History: None Reported Past Drug Use History: None Reported - Past Family History Brother(s) Family Medical History: Cancer Additional Family Medical History / Comment(s): Psychiatric history also runs in the patient's family. The patient's daughter has committed suicide. The patient's brother and sister and mother all of cancers. Apparently rest cancer and esophageal cancer and pancreatic cancer runs in family unable to give detailed history on that. Sister(s) Family Medical History: Cancer Father Family Medical History: Cancer Additional Family Medical History / Comment(s): Father had lung cancer. Mother Family Medical History: Cancer Additional Family Medical History / Comment(s): Mother had pancreatic cancer. Medications and Allergies Home Medications Medication Instructions Recorded Confirmed Type ALPRAZolam [Xanax] 2 mg PO TID 12/14/13 10/27/22 History FLUoxetine HCL [PROzac] 40 mg PO BID 12/14/13 10/27/22 History QUEtiapine [SEROquel] 100 mg PO HS 01/04/16 10/27/22 History Fluticasone/Vilanterol [Breo 1 puff INHALATION RT-DAILY 05/15/18 10/27/22 History Ellipta 200-25 Mcg Inhaler] Apixaban [Eliquis] 5 mg PO BID 30 Days #60 tab 02/05/19 10/27/22 Rx Albuterol Sulfate [Ventolin HFA] 2 puff INHALATION RT-Q6H PRN 12/09/19 10/27/22 History Atorvastatin [Lipitor] 10 mg PO DAILY 12/09/19 10/27/22 History Cholecalciferol [Vitamin D3 (25 100 mcg PO BID 12/10/20 10/27/22 History Mcg = 1000 Iu)] Omeprazole 20 mg PO AC-BID 12/10/20 10/27/22 History lamoTRIgine [LaMICtal] 50 mg PO W/SUPPER 12/10/20 10/27/22 History Famotidine 20 mg PO BID 10/06/21 10/27/22 History Metoprolol Succinate (ER) [Toprol 50 mg PO DAILY 11/19/21 10/27/22 History XL] Montelukast [Singulair] 10 mg PO HS 11/19/21 10/27/22 History Ondansetron Odt [Zofran ODT] 4 mg PO Q8H PRN 11/19/21 10/27/22 History Calcium Carbonate [Calcium] 600 mg PO BID 08/03/22 10/27/22 History Aspirin 81 mg PO DAILY tab 08/04/22 10/27/22 Rx QUEtiapine [SEROquel] 50 mg PO W/SUPPER 08/13/22 10/27/22 History Dextroamphetamine/Amphetamine 20 mg PO BID@0800,1500 10/27/22 10/27/22 History [Adderall] HYDROcodone/APAP 5-325MG [[place] 1 tab PO BID PRN 10/27/22 10/27/22 History 5-325] Isosorbide Mononitrate ER [Imdur] 30 mg PO HS 10/27/22 10/27/22 History QUEtiapine [SEROquel] 25 mg PO DAILY PRN 10/27/22 10/27/22 History Allergies Allergy/AdvReac Type Severity Reaction Status Date / Time adhesive tape AdvReac Skin Verified 10/27/22 10:10 Tearing parmesan cheese Allergy Rash/Hives Uncoded 10/27/22 10:10 Physical Exam Vitals: Vital Signs Temp Pulse Pulse Resp BP BP Pulse Ox 10/28/22 08:59 94 L 10/28/22 07:18 97.3 F L 72 18 111/71 93 L 10/28/22 02:50 98.4 F 77 16 128/69 94 L 10/27/22 19:22 98.3 F 78 17 132/82 95 10/27/22 18:44 64 10/27/22 18:27 64 10/27/22 13:56 98.1 F 60 18 124/81 98 10/27/22 12:33 98.2 F 68 17 130/86 98 Intake and Output 10/27/22 10/28/22 10/28/22 22:59 06:59 14:59 Other: Voiding Method Toilet # Voids 1 2 Weight 90.265 kg PHYSICAL EXAMINATION: This is a 67-year-old female in no apparent distress at the time of my examination. HEENT: Head is atraumatic, normocephalic. Pupils are equal, round. Sclerae anicteric. Conjunctivae are clear. Mucous membranes of the mouth are moist. Neck is supple. There is no elevated jugular venous pressure. No carotid bruit is heard. CHEST EXAMINATION: Clear to auscultation bilaterally. No wheezes rales or rhonchi. Respirations even and nonlabored. HEART EXAMINATION: Heart regular, positive S1 and S2. No S3. No S4. No clicks, rubs or murmurs. ABDOMEN: Soft, nontender. Bowel sounds are heard. No organomegaly noted. EXTREMITIES: 2+ peripheral pulses with no evidence of peripheral edema and no calf tenderness noted. NEUROLOGIC EXAMINATION: Patient is awake, alert and oriented x3. Results 10/27/22 09:30 10/27/22 09:30 Cardiac Enzymes 10/27/22 10/27/22 Range/Units 12:52 16:41 Troponin I <0.012 <0.012 (0.000-0.034) ng/mL Lipids 10/27/22 Range/Units 09:30 Triglycerides 94.90 (0.00-149.00) mg/dL Cholesterol 169.00 (0.00-200.00) mg/dL HDL Cholesterol 48.30 (40.00-60.00) mg/dL Cholesterol/HDL Ratio 3.50 Ratio Current Medications Generic Name Dose Route Start Last Admin Trade Name Freq PRN Reason Stop Dose Admin Hydrocodone Bitart/Acetaminophen 1 each 10/27/22 13:44 10/28/22 05:41 Hydrocodone/Apap 5-325mg 1 Each Tab PO 1 each BID PRN Administration Pain Albuterol Sulfate 2.5 mg 10/27/22 13:44 10/27/22 18:25 Albuterol Nebulized 2.5 Mg/3 Ml INHALATION 2.5 mg RT-Q6H PRN Administration Shortness Of Breath Alprazolam 2 mg 10/27/22 16:00 10/28/22 09:54 Alprazolam 1 Mg Tab PO 2 mg TID KAREEM Administration Apixaban 5 mg 10/27/22 21:00 10/28/22 10:25 Apixaban 5 Mg Tab PO 5 mg BID KAREEM Administration Protocol Aspirin 81 mg 10/28/22 09:00 10/28/22 10:25 Aspirin 81 Mg PO 81 mg DAILY KAREEM Administration Atorvastatin Calcium 10 mg 10/28/22 09:00 10/28/22 10:25 Atorvastatin 10 Mg Tab PO 10 mg DAILY KAREEM Administration Budesonide/Formoterol Fumarate 2 puff 10/28/22 08:00 10/28/22 08:58 Symbicort 160-4.5 Mcg Inhaler INHALATION Not Given RT-BID [facility] Calcium Carbonate/Glycine 500 mg 10/27/22 21:00 10/28/22 10:26 Calcium Carbonate 500 Mg Chewable PO 500 mg BID KAREEM Administration Cholecalciferol 100 mcg 10/27/22 21:00 10/28/22 10:26 Cholecalciferol 25 Mcg (1000 Iu) Tablet PO 100 mcg BID KAREEM Administration Famotidine 20 mg 10/27/22 21:00 10/28/22 10:25 Famotidine 20 Mg Tab PO 20 mg BID KAREEM Administration Fluoxetine HCl 40 mg 10/27/22 21:00 10/28/22 10:27 Fluoxetine Hcl 20 Mg Cap PO 40 mg BID KAREEM Administration Hydromorphone HCl 0.5 mg 10/28/22 10:09 10/28/22 10:37 Hydromorphone 0.5 Mg/0.5 Ml Syringe IVP 0.5 mg Q6HR PRN Administration Pain Isosorbide Mononitrate 30 mg 10/27/22 21:00 10/27/22 21:51 Isosorbide Mononitrate Er 30 Mg Tab.Er.24h PO 30 mg HS KAREEM Administration Lamotrigine 50 mg 10/27/22 17:30 10/27/22 17:57 Lamotrigine 25 Mg Tab PO 50 mg W/SUPPER KAREEM Administration Meclizine HCl 25 mg 10/28/22 08:57 10/28/22 09:04 Meclizine 25 Mg Tab PO 25 mg BID PRN Administration Vertigo Metoprolol Succinate 50 mg 10/28/22 09:00 10/28/22 10:27 Metoprolol Succinate (Er) 50 Mg Tab.Er.24h PO Not Given DAILY KAREEM Montelukast Sodium 10 mg 10/27/22 21:00 10/27/22 21:52 Montelukast 10 Mg Tab PO 10 mg HS KAREEM Administration Nitroglycerin 0.4 mg 10/27/22 12:15 Nitroglycerin Sl Tabs 0.4 Mg Tab SUBLINGUAL Q5M PRN Chest Pain Nitroglycerin 1 inch 10/27/22 18:00 10/28/22 05:01 Nitroglycerin Oint 1 Inch/Gm Packet TOPICAL Not Given Q6HR KAREEM Ondansetron HCl 4 mg 10/27/22 13:44 Ondansetron Odt 4 Mg Tab PO Q8H PRN Nausea Pantoprazole Sodium 40 mg 10/27/22 17:30 10/28/22 05:41 Pantoprazole 40 Mg Tablet PO 40 mg AC-BID KAREEM Administration Quetiapine Fumarate 100 mg 10/27/22 21:00 10/27/22 21:51 Quetiapine 100 Mg Tab PO 100 mg HS KAREEM Administration Quetiapine Fumarate 50 mg 10/27/22 17:30 10/27/22 17:57 Quetiapine 50 Mg Tab PO 50 mg W/SUPPER KAREEM Administration Quetiapine Fumarate 25 mg 10/27/22 13:44 10/28/22 06:06 Quetiapine 25 Mg Tab PO 25 mg DAILY PRN Administration Anxiety Intake and Output 10/27/22 10/28/22 10/28/22 22:59 06:59 14:59 Other: Voiding Method Toilet # Voids 1 2 Weight 90.265 kg 10/27/22 09:30 10/27/22 09:30 EKG Interpretations (text) Sinus mechanism Assessment and Plan Assessment: #1 syncope, likely secondary to orthostasis #2 paroxysmal atrial fibrillation, currently maintaining sinus mechanism #3 hypertension with apparent hypotension at home. #4 headache could be secondary to oral nitrate #5 hyperlipidemia Plan: From cardiology's perspective no need for further cardiac workup as an inp atient. Syncope likely related to orthostasis however she may benefit from outpatient event monitor. We will continue oral nitrate due to significant headache. Patient may be discharged home and follow-up as an outpatient was Dr. Martinez. [employer] note has been reviewed, I agree with a documented findings and plan of care. Patient was seen and examined.
--- NOTE | 2022-10-28 15:57 | P.HPIM ---
History of Present Illness H&P Date: 10/27/22 Chief Complaint: Syncope and vertigo HISTORY OF PRESENT ILLNESS This is a 67-year-old female patient with past medical history of paroxysmal atrial fibrillation on eliquis, hypertension, hyperlipidemia, COPD, gastroesophageal reflux disease, esophageal strictures with ballooning, obstructive sleep apnea not utilizing CPAP, kidney stones, restless leg syndrome, DVT and pulmonary embolism. Patient recently presented to the emergency center at [facility] after she has had a syncopal episode at home she stated that she woke up in the morning and had her coffee and she went to the living room and try to turn the TV switched on however it did not work so she had to squat down to unplug the TV and put the plug back and, on her way up suddenly she felt dizzy with minimal headache, and she ended up passing out according to her daughter her TV mount was spent and apparently the patient hit her head, her granddaughter found her in the floor, and she got her daughter who called EMT and the patient was transported to the emergency department at [facility] she had a computed tomography scan of the brain did not show evidence of acute of normalities, laboratory evaluation with normal, and the patient was admitted to the hospital for evaluation by cardiology she also has been complaining of increased pain in the lower back, she was recently diagnosed of chronic L4 superior endplate fracture appears to be chronic with degenerative disc disease of the lumbar spine and facet arthropathy with possible foraminal encroachment at L5 and S1, patient will be seen in consultation by spine surgery Dr. Chavez and the further recommendations to follow. REVIEW OF SYSTEMS Constitutional: No fever, no chills, no night sweats. No weight change. No weakness, fatigue or lethargy. No daytime sleepiness. HEENT: No headache. No blurred vision or double vision, no loss of vision. No loss of Hearing, no ringing in the ears, no dizziness. No nasal drainage or congestion. No epistaxis. No sore throat. Lungs: No shortness of breath, cough, no sputum production. No wheezing. Cardiovascular: Reported chest pain, no lower extremity edema. No palpitations. No paroxysmal nocturnal dyspnea. No orthopnea. No lightheadedness or dizziness. positive for syncopal episode Abdominal: No abdominal pain. No nausea, vomiting. No diarrhea. No constipation. No bloody or tarry stools. No loss of appetite. Genitourinary: No dysuria, increased frequency, urgency. No urinary retention. Musculoskeletal: No myalgias. No muscle weakness, no gait dysfunction, no frequent falls. No back pain. No neck pain. Integumentary: No wounds, no lesions. No rash or pruritus. No unusual bruising. No change in hair or nails. Neurologic: No aphasia. No facial droop. No change in mentation. positive for head injury. No headache. No paralysis. No paresthesia, positive for vertigo Psychiatric: positive for depression and anxiety. No mood swings. Endocrine: No abnormal blood sugars. No weight change. No excessive sweating or thirst. No cold intolerance. MEDICAL HISTORY COPD Gastroesophageal reflux disease Pulmonary embolism and DVT Obstructive sleep apnea Paroxysmal atrial fibrillation Hypertension Hyperlipidemia Osteopenia L5-S1 foraminal stenosis DDD in the Lumbar spine with facet arthropathy. SURGICAL HISTORY Cholecystectomy in 2020 Esophageal strictures with ballooning SOCIAL HISTORY Patient is a lifelong nonsmoker, no alcohol abuse, no marijuana or illicit drug use. FAMILY HISTORY Father at age 58 from myocardial infarction. Mother at age 67 from pancreatic cancer. She has one brother from larynx cancer. One sister from breast cancer and lung cancer. PHYSICAL EXAMINATION Gen: This is a 67-year-old female. She is resting in bed and appears to be comfortable and in no acute distress. HEENT: Head is atraumatic, normocephalic. Pupils equal, round. Sclerae is anicteric. NECK: Supple. No JVD. No lymphadenopathy. No thyromegaly. LUNGS: Clear to auscultation. No wheezes or rhonchi. No intercostal retractions. HEART: first heart sound is depressed, second heart sounds normal, there is systolic ejection murmur 2/6 located in the left sternal border. ABDOMEN: Soft. Bowel sounds are present, soft, nontender, nondistended, positive bowel sounds no hepatosplenomegaly EXTREMITIES: No pedal edema. No calf tenderness. Dorsalis pedis +2 bilaterally. NEUROLOGICAL: Patient is awake, alert and oriented x3. Cranial nerves 2 through 12 are grossly intact. cranial nerves III-12 appear grossly intact, muscle power 4 out of 5 in upper and lower extremities bilaterally. ASSESSMENT AND PLAN 1. Syncope likely due to vasovagal reaction rule out cardiac arrhythmias. Patient will be kept on the monitor, cardiology evaluation, patient did have an echocardiogram not too long ago that showed normal ejection fraction 55% with moderate mitral regurgitation with LVH, EKG does not show any evidence of acute of normalities minimal prolonged QT we will monitor the patient very closely during her hospital stay. 2. Vertigo likely labyrinthitis computed tomography scan of the brain did not show evidence of acute of normalities, start the patient on meclizine 25 mg orally twice every day. 3. Closed head injury. Computed tomography scan of the brain is negative, patient will be given Dilaudid 0.5 mg IV push every 6 hours as needed, continue [place] as needed, continue to monitor the patient very closely, no change in mental status, no neuro changes at this time no need to repeat the CAT scan if the symptoms persist we will repeat the CAT scan tomorrow morning. 4. Stool incontinence and urinary incontinence according to the patient with a prior history of L4 fracture. We will obtain spine surgery consultation for further recommendation. 5. hypertension and hypertensive cardiovascular disease. Continue patient on metoprolol ER 50 mg orally once every day. 6. Paroxysmal atrial fibrillation, currently in a sinus rhythm, continue patient on metoprolol ER 50 mg orally once every day, we will continue with Eliquis 5 mg po bid 7. Gastroesophageal reflux disease.we will continue with Omeprazole 20 mg po bid along with Famotidine 20 mg po bid 8. Hyperlipidemia.we will continue with low cholesterol diet and exercise and weight loss, we will continue with Atorvastatin 20 mg po daily, keep LDL-c 55-70 9. History of pulmonary embolism and DVT. we will continue with Eliquis 5 mg po bid for life. 10. Obstructive sleep apnea. weght loss, not using her CPAP 11. COPD. we will continue with current Albuterol HFA 2 puffs inhalaton q4 h as needed along with controller inhaler in the form of Breo Ellipta daily 12. Anxiety disoder. we will continue with Prozac 40 mg po bid along with Xanax 2 mg po tid , has been under the care of , we will continue with Lamotrigine and Seroquel as well. 13. Allergic rhinitis. we will continue with Montelukast 10 mg po qhs. 14. DVT prophylaxis. we will continue with Eliquis 5 mg po bid. 15. GI prophylaxis. we will continue with PPI and Famotidine. 16. Full code. Past Medical History Past Medical History: Atrial Fibrillation, Asthma, Cancer, Heart Failure, COPD, Dementia, Deep Vein Thrombosis (DVT), Fibromyalgia, GERD/Reflux, GI Bleed, Hyperlipidemia, Memory Impairment, Myocardial Infarction (AL), Osteoarthritis (OA), Pneumonia, Pulmonary Embolus (PE), Sleep Apnea/CPAP/BIPAP Additional Past Medical History / Comment(s): had pneumonia fall 2020, skin cancer with removals, pt states she had a AL in 2015, hypotension, dementia/memory issues d/t of daughter, esophageal strictures w/ballooning, diverticular disease, anemia, RLS, kidney stones, sinus problems, LORIE-not using CPAP, fx. ribs & was adm. & found to have bad gallbladder, hx. of lung nodules-had lavage, PE's & DVT-unsure of cause, takes metoprolol for a-fib, fell and fx. right wrist-has half cast/splint Last Myocardial Infarction Date:: 2015 History of Any Multi-Drug Resistant Organisms: None Reported Past Surgical History: Adenoidectomy, Appendectomy, Bariatric Surgery, Breast Surgery, Cholecystectomy, Hernia Repair, Hysterectomy, Joint Replacement, Tonsillectomy Additional Past Surgical History / Comment(s): R breast bx. x2, 3 umbilical hernia repairs, lithotripsies, gastric bypass, L chao benign tumor, multiple skin bx/skin cancer removals, EGD/dilations and colonoscopies. rt hip replacement Past Anesthesia/Blood Transfusion Reactions: Previous Problems w/ Anesthesia Additional Past Anesthesia/Blood Transfusion Reaction / Comment(s): bp dips low, tends to bleed alot w/surgeries, no problems w/blood transfusions Past Psychological History: Anxiety, Depression Smoking Status: Never smoker Past Alcohol Use History: None Reported Past Drug Use History: None Reported - Past Family History Brother(s) Family Medical History: Cancer Additional Family Medical History / Comment(s): Psychiatric history also runs in the patient's family. The patient's daughter has committed suicide. The patient's brother and sister and mother all of cancers. Apparently rest cancer and esophageal cancer and pancreatic cancer runs in family unable to give detailed history on that. Sister(s) Family Medical History: Cancer Father Family Medical History: Cancer Additional Family Medical History / Comment(s): Father had lung cancer. Mother Family Medical History: Cancer Additional Family Medical History / Comment(s): Mother had pancreatic cancer. Medications and Allergies Home Medications Medication Instructions Recorded Confirmed Type ALPRAZolam [Xanax] 2 mg PO TID 12/14/13 10/27/22 History FLUoxetine HCL [PROzac] 40 mg PO BID 12/14/13 10/27/22 History QUEtiapine [SEROquel] 100 mg PO HS 01/04/16 10/27/22 History Fluticasone/Vilanterol [Breo 1 puff INHALATION RT-DAILY 05/15/18 10/27/22 History Ellipta 200-25 Mcg Inhaler] Apixaban [Eliquis] 5 mg PO BID 30 Days #60 tab 02/05/19 10/27/22 Rx Albuterol Sulfate [Ventolin HFA] 2 puff INHALATION RT-Q6H PRN 12/09/19 10/27/22 History Atorvastatin [Lipitor] 10 mg PO DAILY 12/09/19 10/27/22 History Cholecalciferol [Vitamin D3 (25 100 mcg PO BID 12/10/20 10/27/22 History Mcg = 1000 Iu)] Omeprazole 20 mg PO AC-BID 12/10/20 10/27/22 History lamoTRIgine [LaMICtal] 50 mg PO W/SUPPER 12/10/20 10/27/22 History Famotidine 20 mg PO BID 10/06/21 10/27/22 History Metoprolol Succinate (ER) [Toprol 50 mg PO DAILY 11/19/21 10/27/22 History XL] Montelukast [Singulair] 10 mg PO HS 11/19/21 10/27/22 History Ondansetron Odt [Zofran ODT] 4 mg PO Q8H PRN 11/19/21 10/27/22 History Calcium Carbonate [Calcium] 600 mg PO BID 08/03/22 10/27/22 History Aspirin 81 mg PO DAILY tab 08/04/22 10/27/22 Rx QUEtiapine [SEROquel] 50 mg PO W/SUPPER 08/13/22 10/27/22 History Dextroamphetamine/Amphetamine 20 mg PO BID@0800,1500 10/27/22 10/27/22 History [Adderall] HYDROcodone/APAP 5-325MG [[place] 1 tab PO BID PRN 10/27/22 10/27/22 History 5-325] Isosorbide Mononitrate ER [Imdur] 30 mg PO HS 10/27/22 10/27/22 History QUEtiapine [SEROquel] 25 mg PO DAILY PRN 10/27/22 10/27/22 History Allergies Allergy/AdvReac Type Severity Reaction Status Date / Time adhesive tape AdvReac Skin Verified 10/27/22 10:10 Tearing parmesan cheese Allergy Rash/Hives Uncoded 10/27/22 10:10 Physical Exam Vitals: Vital Signs Temp Pulse Pulse Resp BP BP Pulse Ox 10/27/22 13:56 98.1 F 60 18 124/81 98 10/27/22 12:33 98.2 F 68 17 130/86 98 10/27/22 11:37 62 18 133/87 97 10/27/22 10:20 70 18 115/45 99 10/27/22 09:12 98.1 F 64 18 133/78 97 Intake and Output 10/26/22 10/27/22 10/27/22 22:59 06:59 14:59 Other: Weight 90.265 kg Results CBC & Chem 7: 10/27/22 09:30 10/27/22 09:30 Labs: Abnormal Lab Results - Last 24 Hours (Table) 10/27/22 Range/Units 09:30 Chloride 108 H (98-107) mmol/L BUN 18 H (7-17) mg/dL Total Protein 5.9 L (6.3-8.2) g/dL Albumin 3.3 L (3.5-5.0) g/dL
--- NOTE | 2022-10-28 16:02 | P.PN ---
Subjective Progress Note Date: 10/28/22 HISTORY OF PRESENT ILLNESS This is a 67-year-old female patient with past medical history of paroxysmal atrial fibrillation on eliquis, hypertension, hyperlipidemia, COPD, gastroeso phageal reflux disease, esophageal strictures with ballooning, obstructive sleep apnea not utilizing CPAP, kidney stones, restless leg syndrome, DVT and pulmonary embolism. Patient recently presented to the emergency center at [facility] after she has had a syncopal episode at home she stated that she woke up in the morning and had her coffee and she went to the living room and try to turn the TV switched on however it did not work so she had to squat down to unplug the TV and put the plug back and, on her way up suddenly she felt dizzy with minimal headache, and she ended up passing out according to her daughter her TV mount was spent and apparently the patient hit her head, her gr anddaughter found her in the floor, and she got her daughter who called EMT and the patient was transported to the emergency department at [facility] she had a computed tomography scan of the brain did not show evidence of acute of normalities, laboratory evaluation with normal, and the patient was admitted to the hospital for evaluation by cardiology she also has been complaining of increased pain in the lower back, she was recently diagnosed of chronic L4 superior endplate fracture appears to be chronic with degenerative disc disease of the lumbar spine and facet arthropathy with possible foraminal encroachment at L5 and S1, patient will be seen in consultation by spine surgery Dr. Chavez and the further recommendations to follow. 10/28: Patient is laying down in bed she is teary today in the morning, she is complaining of increased headache on the top of her head, she denies any blurred vision or double vision, she has no nausea or vomiting at this time, she continues to have pain in the lower back, she is asking for more pain medicine, she did receive Colonia, we will add Dilaudid 0.5 mg IV push every 6 hours, we added meclizine 25 mg orally twice every day, her vertigo is better according to her, she will be seen in consultation by Dr. Chavez for further recommendation I believe he has ordered MRI of the lumbar spine. REVIEW OF SYSTEMS Constitutional: No fever, no chills, no night sweats. No weight change. No weakness, fatigue or lethargy. No daytime sleepiness. HEENT: No headache. No blurred vision or double vision, no loss of vision. No loss of Hearing, no ringing in the ears, no dizziness. No nasal drainage or congestion. No epistaxis. No sore throat. Lungs: No shortness of breath, cough, no sputum production. No wheezing. Cardiovascular: Reported chest pain, no lower extremity edema. No palpitations. No paroxysmal nocturnal dyspnea. No orthopnea. No lightheadedness or dizziness. positive for syncopal episode Abdominal: No abdominal pain. No nausea, vomiting. No diarrhea. No constipation. No bloody or tarry stools. No loss of appetite. Genitourinary: No dysuria, increased frequency, urgency. No urinary retention. Musculoskeletal: No myalgias. No muscle weakness, no gait dysfunction, no frequent falls. No back pain. No neck pain. Integumentary: No wounds, no lesions. No rash or pruritus. No unusual bruising. No change in hair or nails. Neurologic: No aphasia. No facial droop. No change in mentation. positive for head injury. No headache. No paralysis. No paresthesia, positive for vertigo Psychiatric: positive for depression and anxiety. No mood swings. Endocrine: No abnormal blood sugars. No weight change. No excessive sweating or thirst. No cold intolerance. PHYSICAL EXAMINATION Gen: This is a 67-year-old female. She is resting in bed and appears to be comfortable and in no acute distress. HEENT: Head is atraumatic, normocephalic. Pupils equal, round. Sclerae is anicteric. NECK: Supple. No JVD. No lymphadenopathy. No thyromegaly. LUNGS: Clear to auscultation. No wheezes or rhonchi. No intercostal retractions. HEART: first heart sound is depressed, second heart sounds normal, there is systolic ejection murmur 2/6 located in the left sternal border. ABDOMEN: Soft. Bowel sounds are present, soft, nontender, nondistended, positive bowel sounds no hepatosplenomegaly EXTREMITIES: No pedal edema. No calf tenderness. Dorsalis pedis +2 bilaterally. NEUROLOGICAL: Patient is awake, alert and oriented x3. Cranial nerves 2 through 12 are grossly intact. cranial nerves III-12 appear grossly intact, muscle power 4 out of 5 in upper and lower extremities bilaterally. ASSESSMENT AND PLAN 1. Syncope likely due to vasovagal reaction rule out cardiac arrhythmias. Patient will be kept on the monitor, cardiology evaluation, patient did have an echocardiogram not too long ago that showed normal ejection fraction 55% with moderate mitral regurgitation with LVH, EKG does not show any evidence of acute of normalities minimal prolonged QT we will monitor the patient very closely during her hospital stay. 2. Vertigo likely labyrinthitis computed tomography scan of the brain did not show evidence of acute abnormalities, start the patient on meclizine 25 mg orally twice every day. 3. Closed head injury. Computed tomography scan of the brain is negative, patient will be given Dilaudid 0.5 mg IV push every 6 hours as needed, continue Colonia as needed, continue to monitor the patient very closely, no change in mental status, no neuro changes at this time no need to repeat the CAT scan if the symptoms persist we will repeat the CAT scan tomorrow morning. 4. Stool incontinence and urinary incontinence according to the patient with a prior history of L4 fracture, patient was seen by Dr. Chavez an MRI of the lumbar spine was done. 5. hypertension and hypertensive cardiovascular disease. Continue patient on metoprolol ER 50 mg orally once every day. 6. Paroxysmal atrial fibrillation, currently in a sinus rhythm, continue patient on metoprolol ER 50 mg orally once every day, we will continue with Eliquis 5 mg po bid 7. Gastroesophageal reflux disease.we will continue with Omeprazole 20 mg po bid along with Famotidine 20 mg po bid 8. Hyperlipidemia.we will continue with low cholesterol diet and exercise and weight loss, we will continue with Atorvastatin 20 mg po daily, keep LDL-c 55-70 9. History of pulmonary embolism and DVT. we will continue with Eliquis 5 mg po bid for life. 10. Obstructive sleep apnea. weght loss, not using her CPAP 11. COPD. we will continue with current Albuterol HFA 2 puffs inhalaton q4 h as needed along with controller inhaler in the form of Breo Ellipta daily 12. Anxiety disoder. we will continue with Prozac 40 mg po bid along with Xanax 2 mg po tid , has been under the care of , we will continue with Lamotrigine and Seroquel as well. 13. Allergic rhinitis. we will continue with Montelukast 10 mg po qhs. 14. DVT prophylaxis. we will continue with Eliquis 5 mg po bid. 15. GI prophylaxis. we will continue with PPI and Famotidine. 16. Full code. Objective - Vital Signs Vital signs: Vital Signs Temp 97.5 F L 10/28/22 14:45 Pulse 89 10/28/22 14:45 Resp 16 10/28/22 14:45 BP 110/70 10/28/22 14:45 Pulse Ox 95 10/28/22 14:45 FiO2 Intake & Output 10/27/22 10/28/22 10/28/22 18:59 06:59 18:59 Weight 90.265 kg Other: Voiding Method Diaper # Voids 1 2 0 - Labs CBC & Chem 7: 10/27/22 09:30 10/27/22 09:30
[2022-10-28] MEDS: lamoTRIgine 25 MG TAB PO SCH (17:35)
[2022-10-28] MEDS: QUEtiapine 50 MG TAB PO SCH (17:40)
[2022-10-28] MEDS: QUEtiapine 100 MG TAB PO SCH (21:03)
[2022-10-28] MEDS: MONTELUKAST 10 MG TAB PO SCH (21:03)
[2022-10-29] MEDS: NITROGLYCERIN OINT 1 INCH/GM PACKET TOPICAL SCH ×4 (00:18→18:28)
[2022-10-29] MEDS: ALPRAZolam 1 MG TAB PO SCH ×3 (00:37→16:28)
[2022-10-29] MEDS: PANTOPRAZOLE 40 MG TABLET PO SCH ×2 (06:04→18:20)
--- NOTE | 2022-10-29 07:38 | MR ---
EXAMINATION TYPE: MR lumbar spine wo/w con DATE OF EXAM: 10/28/2022 COMPARISON: HISTORY: Bowel and bladder incontinence TECHNIQUE: Multiplanar, multisequence images of the lumbar spine were acquired without and with 9 ml mL intraven ous Gadavist gadolinium contrast. L1-L2: Normal disc appearance without desiccation. No herniation, protrusion or disc bulging. No ca nal stenosis is present. Foramina are patent bilaterally. L2-L3: Normal disc appearance without desiccation. No herniation, protrusion or disc bulging. No ca nal stenosis is present. Foramina are patent bilaterally. L3-L4: Mild decreased signal ossified compatible degenerative disc disease. There is posterior disc b ulge with effacement of the ventral thecal sac. There is constriction of the thecal sac with left lat eral recess stenosis. Bilateral left greater than right neural foraminal encroachment. L4-L5: There is loss of height involving the L4 vertebral segment which appears chronic in nature. Lo ss of height is estimated at 20%. Inferior endplate Schmorl node is noted. There is [id number] disc desiccation with posterior disc bulge and left greater than right lateral recess stenosis. There is constriction of the thecal sac without overt central stenosis at this time. Left greater than rig ht neural foraminal encroachment. L5-S1: There is decreased signal of the L5 vertebral segment on the T1-weighted data set is increased signal noted on T2 weighted STIR image. This is felt to reflect acute compression fracture with loss of height estimated at 20%. No bony retropulsion. Posterior elements are intact. There is moderate d isc desiccation with posterior disc bulge and annular tear. Mild effacement ventral thecal sac. No ev idence for central stenosis. Moderate bilateral foraminal encroachment. Lumbar segments are intact. No paraspinal masses are identified. Conus medullaris has a normal appe arance. IMPRESSION: 1. Mild acute compression fracture of L5. Chronic appearing loss of height superior endplate of L4. N o evidence for instability. 2. Degenerative disc disease as discussed above. 3. Varying degrees of lateral recess stenosis and neural foraminal encroachment. See above.
[2022-10-29] MEDS: CALCIUM CARBONATE 500 MG CHEWABLE PO SCH ×2 (08:53→20:10)
[2022-10-29] MEDS: FLUoxetine HCL 20 MG CAP PO SCH ×2 (08:54→20:10)
[2022-10-29] MEDS: CHOLECALCIFEROL 25 MCG (1000 IU) TABLET PO SCH ×2 (08:54→20:10)
[2022-10-29] MEDS: HYDROcodone/APAP 5-325MG 1 EACH TAB PO PRN (08:54)
[2022-10-29] MEDS: ATORVASTATIN 10 MG TAB PO SCH (08:54)
[2022-10-29] MEDS: METOPROLOL SUCCINATE (ER) 50 MG TAB.ER.24H PO SCH (08:55)
[2022-10-29] MEDS: FAMOTIDINE 20 MG TAB PO SCH ×2 (08:55→20:10)
[2022-10-29] MEDS: APIXABAN 5 MG TAB PO SCH ×2 (08:55→20:10)
[2022-10-29] MEDS: SYMBICORT 160-4.5 MCG INHALER INHALATION SCH ×2 (09:25→19:55)
[2022-10-29] MEDS: HYDROmorphone 0.5 MG/0.5 ML SYRINGE IVP PRN ×2 (10:24→16:28)
--- NOTE | 2022-10-29 10:25 | P.CNOR ---
History of Present Illness - [facility] Consult date: 10/29/22 Consult reason: back pain History of present illness: Patient is a pleasant 67-year-old female with multiple medical history and some history some anxiety who presents today hospital after episode of syncope and h as been having urinary and bowel incontinence. The patient has been having significant back pain over the past 7 weeks since she fell. Patient says that she fell 7 weeks ago when she slipped on ice at home. At that point she hurt her back and has been having some difficulty with her back since that time. She also says that that at that point she started having both bowel and urinary incontinence. She says that she goes to the bathroom frequently to try to avoid having accidents at home but at times she will feel bowel or bladder issues and have accidents where she is unaware that she had a bowel movement or voiding urine. She's not sure how many times that has happened in the past several weeks but she says that that has not improved. Here in Hospital apparently she gets up frequently to go use the bathroom and has bowel movements and voids freely. She says that she feels symptoms are really at her lower back pain. She also says she occasionally gets some issues down her right leg. She uses a walker because of dizziness and says that she has been using that for several months. Denies current chest pain. Denies shortness breath. Denies any recent fevers. Review of Systems Review of systems is somewhat inconsistent. She talks about dizziness and difficulties with ambulating at different points. It is somewhat difficult to determine timing of various issues with her back or her legs or her dizziness. She denies any current chest pain or shortness breath. She denies any upper extremity issues. She denies troubles with her left leg. She feels her right leg occasionally feels weak and numb and tingly. She has been having seen him back pain for the past 7 weeks since she fell at home. Past Medical History Past Medical History: Atrial Fibrillation, Asthma, Cancer, Heart Failure, COPD, Dementia, Deep Vein Thrombosis (DVT), Fibromyalgia, GERD/Reflux, GI Bleed, Hyperlipidemia, Memory Impairment, Myocardial Infarction (UT), Osteoarthritis (OA), Pneumonia, Pulmonary Embolus (PE), Sleep Apnea/CPAP/BIPAP Additional Past Medical History / Comment(s): had pneumonia fall 2020, skin cancer with removals, pt states she had a UT in 2016, hypotension, dementia/memory issues d/t of daughter, esophageal strictures w/ballooning, diverticular disease, anemia, RLS, kidney stones, sinus problems, LORIE-not using CPAP, fx. ribs & was adm. & found to have bad gallbladder, hx. of lung nodules-had lavage, PE's & DVT-unsure of cause, takes metoprolol for a-fib, fell and fx. right wrist-has half cast/splint Last Myocardial Infarction Date:: 2015 History of Any Multi-Drug Resistant Organisms: None Reported Past Surgical History: Adenoidectomy, Appendectomy, Bariatric Surgery, Breast Surgery, Cholecystectomy, Hernia Repair, Hysterectomy, Joint Replacement, Tonsillectomy Additional Past Surgical History / Comment(s): R breast bx. x2, 3 umbilical hernia repairs, lithotripsies, gastric bypass, L chao benign tumor, multiple skin bx/skin cancer removals, EGD/dilations and colonoscopies. rt hip replacement Past Anesthesia/Blood Transfusion Reactions: Previous Problems w/ Anesthesia Additional Past Anesthesia/Blood Transfusion Reaction / Comm: bp dips low, tends to bleed alot w/surgeries, no problems w/blood transfusions Past Psychological History: Anxiety, Depression Smoking Status: Never smoker Past Alcohol Use History: None Reported Past Drug Use History: None Reported - Past Family History Brother(s) Family Medical History: Cancer Additional Family Medical History / Comment(s): Psychiatric history also runs in the patient's family. The patient's daughter has committed suicide. The patient's brother and sister and mother all of cancers. Apparently rest cancer and esophageal cancer and pancreatic cancer runs in family unable to give detailed history on that. Sister(s) Family Medical History: Cancer Father Family Medical History: Cancer Additional Family Medical History / Comment(s): Father had lung cancer. Mother Family Medical History: Cancer Additional Family Medical History / Comment(s): Mother had pancreatic cancer. Medications and Allergies Home Medications Medication Instructions Recorded Confirmed Type ALPRAZolam [Xanax] 2 mg PO TID 12/14/13 10/27/22 History FLUoxetine HCL [PROzac] 40 mg PO BID 12/14/13 10/27/22 History QUEtiapine [SEROquel] 100 mg PO HS 01/04/16 10/27/22 History Fluticasone/Vilanterol [Breo 1 puff INHALATION RT-DAILY 05/15/18 10/27/22 History Ellipta 200-25 Mcg Inhaler] Apixaban [Eliquis] 5 mg PO BID 30 Days #60 tab 02/05/19 10/27/22 Rx Albuterol Sulfate [Ventolin HFA] 2 puff INHALATION RT-Q6H PRN 12/09/19 10/27/22 History Atorvastatin [Lipitor] 10 mg PO DAILY 12/09/19 10/27/22 History Cholecalciferol [Vitamin D3 (25 100 mcg PO BID 12/10/20 10/27/22 History Mcg = 1000 Iu)] Omeprazole 20 mg PO AC-BID 12/10/20 10/27/22 History lamoTRIgine [LaMICtal] 50 mg PO W/SUPPER 12/10/20 10/27/22 History Famotidine 20 mg PO BID 10/06/21 10/27/22 History Metoprolol Succinate (ER) [Toprol 50 mg PO DAILY 11/19/21 10/27/22 History XL] Montelukast [Singulair] 10 mg PO HS 11/19/21 10/27/22 History Ondansetron Odt [Zofran ODT] 4 mg PO Q8H PRN 11/19/21 10/27/22 History Calcium Carbonate [Calcium] 600 mg PO BID 08/03/22 10/27/22 History Aspirin 81 mg PO DAILY tab 08/04/22 10/27/22 Rx QUEtiapine [SEROquel] 50 mg PO W/SUPPER 08/13/22 10/27/22 History Dextroamphetamine/Amphetamine 20 mg PO BID@0800,1500 10/27/22 10/27/22 History [Adderall] HYDROcodone/APAP 5-325MG [[place] 1 tab PO BID PRN 10/27/22 10/27/22 History 5-325] Isosorbide Mononitrate ER [Imdur] 30 mg PO HS 10/27/22 10/27/22 History QUEtiapine [SEROquel] 25 mg PO DAILY PRN 10/27/22 10/27/22 History Allergies Allergy/AdvReac Type Severity Reaction Status Date / Time adhesive tape AdvReac Skin Verified 10/27/22 10:10 Tearing parmesan cheese Allergy Rash/Hives Uncoded 10/27/22 10:10 Physical Examination Osteopathic Statement: *. No significant issues noted on an osteopathic st ructural exam other than those noted in the History and Physical/Consult. - L Spine: dermatomal strength & reflexes bilateral Strength: hip flexion: 5/5 (Her back has no bruising or swelling. She has some paravertebral spasm. No crepitus. Her lower extremities have 5 out of 5 strength with dorsiflexion and hip flexion and knee extension plantarflexion. No pain at her hips. Abdomen soft nontender. Upper extremities have 5 out of 5 strength throu) Results - Labs Labs: H & H 10/27/22 Range/Units 09:30 Hgb 12.6 (11.4-16.0) gm/dL Hct 39.3 (34.0-46.0) % Coagulation 10/27/22 Range/Units 09:30 INR 1.1 (<1.2) Result Diagrams: 10/27/22 09:30 10/27/22 09:30 - Diagnostic results Lumbar MRI with/without contrast: report reviewed (There is bilateral foraminal stenosis L3 4 L4 5 with the listhesis grade 1 at L4 5, there is a new compression deformity about 10% height loss at L5 and chronic compression deformity 10% at L4), image reviewed (Lumbar MRI shows some degenerative changes particularly at L3 4 L4 5. There is spondylolisthesis grade 1 at L4 5. There is a mild compression deformities about 10% height loss at L5 with edema signal at the vertebral body, there is a chronic compression deformity at L4, there is bilateral foramina) Assessment and Plan Assessment: Apparent syncopal episode Status post fall approximately 7 weeks ago Reported bowel and bladder incontinence WITHOUT evidence of any cauda equina cause on MRI New compression fracture at L5 which appears grossly stable Chronic compression fracture L4 which is stable Degenerative disc disease with degenerative stenosis and spondylolisthesis L3 4 L4 5 without severe central stenosis No evidence of issue at the caudal No evidence of lower extremity neurologic loss on exam Plan: Apparent syncopal episode Status post fall approximately 7 weeks ago Reported bowel and bladder incontinence WITHOUT evidence of any cauda equina cause on MRI New compression fracture at L5 which appears grossly stable Chronic compression fracture L4 which is stable Degenerative disc disease with degenerative stenosis and spondylolisthesis L3 4 L4 5 without severe central stenosis No evidence of issue at the caudal No evidence of lower extremity neurologic loss on exam On the patient's examined her lower extremities I do not note any specific neurologic deficit. She seems to have 5 out of 5 strength in her bilateral lower extremities without evidence of acute lower extremity injury. She does have some pain in her back but is fairly mobile sitting up in bed and moving her lower extremities. There is evidence of a new compression deformity at L5 likely due to her traumatic fall. This can do quite well with conservative management and we will order a TLSO brace for her to be worn whenever she is out of bed or elevated more than 45. She will likely need to use the brace for the next 8-12 weeks. This can be managed on an outpatient basis. The patient does have evidence of bilateral foraminal stenosis at L3 4 L4 5 with spondylolisthesis L4 5. His are degenerative in nature and can be exacerbated due to her fall. She could be a candidate for interventional pain management if these continue to give her issues. I do not see cause for her reported bowel or bladder incontinence due to her lumbar spine. I do not see any obvious focal neurologic deficit to indicate upper motor neuron cause at this point. She has good sensation on her lower extremities and toward her sacral area. She has good strength in bilateral lower extremities. Apparently she has been ambulatory in her room and able to go without a walker when distracted. She has been able to have bowel movements and has been able to void freely. Hospital as witnessed by the staff. It is difficult to determine fully the nature of her issues but I do not see an obvious mechanical cause from her lumbar spine and I do not believe that she has any evidence of cauda equina syndrome. I discussed the case with nursing in house staff. It is okay for her to try to mobilize and she can increase her mobility once her brace LSO is intact.
[2022-10-29] MEDS: ONDANSETRON ODT 4 MG TAB PO PRN (10:51)
--- NOTE | 2022-10-29 11:10 | P.PN ---
Subjective Progress Note Date: 10/29/22 This is a 67-year-old patient who follows with Dr. Wei in the office. She has a history of proximal atrial fibrillation, hypertension and dyslipidemia. Also has a history of chronic pain and anxiety. Presented to the emergency department with complaints of having a syncopal episode at home. Also ques tionable episode of chest pain. She did have a Lexiscan MPI done here in July of this year that was normal and echocardiogram at that time as well which showed a normal ejection fraction with mild MR. She apparently sat down with cup of coffee and got up to turn her television on at which time she became quite dizzy, everything went black and she had a brief syncopal episode. According to her her blood pressure has been running in the 60s systolic at home. EKG on admission showed sinus mechanism with no evidence of ischemia. Chest x-ray showed no acute cardiopulmonary process. Computed tomography scan of the brain showed no acute intracranial hemorrhage or midline shift, mild diffuse cerebral atrophy and mild chronic small vessel ischemic change 3 demonstrated but no significant change from most recent prior CT. At the time of her syncopal episode she did complain of palpitations and felt that she could have been in atrial fibrillation however this is not seen upon arrival. Her blood pressure while in EMS was apparently 190s systolic. Upon examination she complains mostly of severe headache. Denies current complaints of chest discomfort. Denies any orthopnea or PND. Denies any lower extremity edema this time. 10/29/2022 The patient was seen and examined resting comfortably in bed. Continues to complain of a headache and primary is following. She also thinks she's had episodes of atrial fibrillation but upon review there's been no evidence of this on the telemetry. Orthostatic blood pressure showed a sitting blood pressure 118/80 and standing of 108/75. She feels her blood pressure is elevated but has been well controlled. Objective - Vital Signs Vital signs: Vital Signs Temp 98.2 F 10/29/22 07:00 Pulse 98 10/29/22 07:00 Resp 16 10/29/22 07:00 BP 129/83 10/29/22 07:00 Pulse Ox 95 10/29/22 07:00 FiO2 Intake & Output 10/28/22 10/29/22 10/29/22 18:59 06:59 18:59 Intake Total 236 Balance 236 Intake: Oral 236 Other: Voiding Method Diaper Toilet Toilet Diaper Diaper Incontinent Incontinent # Voids 0 2 - Exam PHYSICAL EXAMINATION: This is a 67-year-old female in no apparent distress at the time of my examination. HEENT: Head is atraumatic, normocephalic. Pupils are equal, round. Sclerae anicteric. Conjunctivae are clear. Mucous membranes of the mouth are moist. Neck is supple. There is no elevated jugular venous pressure. No carotid bruit is heard. CHEST EXAMINATION: Clear to auscultation bilaterally. No wheezes rales or rhonchi. Respirations even and nonlabored. HEART EXAMINATION: Heart regular, positive S1 and S2. No S3. No S4. No clicks, rubs or murmurs. ABDOMEN: Soft, nontender. Bowel sounds are heard. No organomegaly noted. EXTREMITIES: 2+ peripheral pulses with no evidence of peripheral edema and no calf tenderness noted. NEUROLOGIC EXAMINATION: Patient is awake, alert and oriented x3. - Labs CBC & Chem 7: 10/27/22 09:30 10/27/22 09:30 Assessment and Plan Assessment: #1 syncope, likely secondary to orthostasis #2 paroxysmal atrial fibrillation, currently maintaining sinus mechanism #3 hypertension with apparent hypotension at home. #4 headache could be secondary to oral nitrate #5 hyperlipidemia Plan: From cardiology's perspective no need for further cardiac workup as an inpatient. Syncope likely related to orthostasis however she may benefit from outpatient event monitor. At this time will follow the patient on an as-needed basis. Please do not hesitate to contact us with questions. She will follow-up as an outpatient with Dr. Martinez. FUNERAL DIRECTOR/EMBALMER note has been reviewed, I agree with a documented findings and plan of care. Patient was seen and examined.
[2022-10-29] MEDS ORDERED: bisacodyL 10 MG SUPP RECTAL STA (11:59)
--- NOTE | 2022-10-29 13:16 | P.PN ---
Subjective Progress Note Date: 10/29/22 HISTORY OF PRESENT ILLNESS This is a 67-year-old female patient with past medical history of paroxysmal atrial fibrillation on eliquis, hypertension, hyperlipidemia, COPD, gastroeso phageal reflux disease, esophageal strictures with ballooning, obstructive sleep apnea not utilizing CPAP, kidney stones, restless leg syndrome, DVT and pulmonary embolism. Patient recently presented to the emergency center at [facility] after she has had a syncopal episode at home she stated that she woke up in the morning and had her coffee and she went to the living room and try to turn the TV switched on however it did not work so she had to squat down to unplug the TV and put the plug back and, on her way up suddenly she felt dizzy with minimal headache, and she ended up passing out according to her daughter her TV mount was spent and apparently the patient hit her head, her gr anddaughter found her in the floor, and she got her daughter who called EMT and the patient was transported to the emergency department at [facility] she had a computed tomography scan of the brain did not show evidence of acute of normalities, laboratory evaluation with normal, and the patient was admitted to the hospital for evaluation by cardiology she also has been complaining of increased pain in the lower back, she was recently diagnosed of chronic L4 superior endplate fracture appears to be chronic with degenerative disc disease of the lumbar spine and facet arthropathy with possible foraminal encroachment at L5 and S1, patient will be seen in consultation by spine surgery Dr. Chavez and the further recommendations to follow. 10/28: Patient is laying down in bed she is teary today in the morning, she is complaining of increased headache on the top of her head, she denies any blurred vision or double vision, she has no nausea or vomiting at this time, she continues to have pain in the lower back, she is asking for more pain medicine, she did receive Langley, we will add Dilaudid 0.5 mg IV push every 6 hours, we added meclizine 25 mg orally twice every day, her vertigo is better according to her, she will be seen in consultation by Dr. Chavez for further recommendation I believe he has ordered MRI of the lumbar spine. 10/29: Patient underwent MRI of the lumbar spine that did show evidence of acute L5 fractures about 20% collapse, chronic L4 superior endplate fracture was seen by Dr. Chavez for spine surgery recommended current pain management as well as TLSO brace to be worn for the next 8-12 weeks, patient was complaining of increased abdominal pain and nausea she did receive a Dulcolax suppository as well as Zofran, we will continue to monitor the patient for the next 24 hours, the patient can be discharged home and follow-up with us as an outpatient after that. REVIEW OF SYSTEMS Constitutional: No fever, no chills, no night sweats. No weight change. No weakness, fatigue or lethargy. No daytime sleepiness. HEENT: No headache. No blurred vision or double vision, no loss of vision. No loss of Hearing, no ringing in the ears, no dizziness. No nasal drainage or congestion. No epistaxis. No sore throat. Lungs: No shortness of breath, cough, no sputum production. No wheezing. Cardiovascular: Reported chest pain, no lower extremity edema. No palpitations. No paroxysmal nocturnal dyspnea. No orthopnea. No lightheadedness or dizziness. positive for syncopal episode Abdominal: No abdominal pain. No nausea, vomiting. No diarrhea. No constipation. No bloody or tarry stools. No loss of appetite. Genitourinary: No dysuria, increased frequency, urgency. No urinary retention. Musculoskeletal: No myalgias. No muscle weakness, no gait dysfunction, no frequent falls. No back pain. No neck pain. Integumentary: No wounds, no lesions. No rash or pruritus. No unusual bruising. No change in hair or nails. Neurologic: No aphasia. No facial droop. No change in mentation. positive for head injury. No headache. No paralysis. No paresthesia, positive for vertigo Psychiatric: positive for depression and anxiety. No mood swings. Endocrine: No abnormal blood sugars. No weight change. No excessive sweating or thirst. No cold intolerance. PHYSICAL EXAMINATION Gen: This is a 67-year-old female. She is resting in bed and appears to be comfortable and in no acute distress. HEENT: Head is atraumatic, normocephalic. Pupils equal, round. Sclerae is anicteric. NECK: Supple. No JVD. No lymphadenopathy. No thyromegaly. LUNGS: Clear to auscultation. No wheezes or rhonchi. No intercostal retractions. HEART: first heart sound is depressed, second heart sounds normal, there is systolic ejection murmur 2/6 located in the left sternal border. ABDOMEN: Soft. Bowel sounds are present, soft, nontender, nondistended, positive bowel sounds no hepatosplenomegaly EXTREMITIES: No pedal edema. No calf tenderness. Dorsalis pedis +2 bilaterally. NEUROLOGICAL: Patient is awake, alert and oriented x3. Cranial nerves 2 through 12 are grossly intact. cranial nerves III-12 appear grossly intact, muscle power 4 out of 5 in upper and lower extremities bilaterally. ASSESSMENT AND PLAN 1. Syncope likely due to vasovagal reaction rule out cardiac arrhythmias. Patient will be kept on the monitor, cardiology evaluation, patient did have an echocardiogram not too long ago that showed normal ejection fraction 55% with moderate mitral regurgitation with LVH, EKG does not show any evidence of acute of normalities minimal prolonged QT we will monitor the patient very closely during her hospital stay. 2. Vertigo likely labyrinthitis computed tomography scan of the brain did not show evidence of acute abnormalities, start the patient on meclizine 25 mg orally twice every day. 3. Closed head injury. Computed tomography scan of the brain is negative, patient will be given Dilaudid 0.5 mg IV push every 6 hours as needed, continue Langley as needed, continue to monitor the patient very closely, no change in mental status, no neuro changes at this time no need to repeat the CAT scan if the symptoms persist we will repeat the CAT scan tomorrow morning. 4. Stool incontinence and urinary incontinence according to the patient. MRI o f the lumbar spine did show evidence of a chronic L4 superior endplate fracture as well as acute L5 fracture with degenerative disc disease and trying degree of foraminal stenosis was seen in consultation by spine surgery was recommended to have a TLSO brace to be worn for the next 8-12 weeks. Continue current pain management. 5. hypertension and hypertensive cardiovascular disease. Continue patient on metoprolol ER 50 mg orally once every day. 6. Paroxysmal atrial fibrillation, currently in a sinus rhythm, continue patient on metoprolol ER 50 mg orally once every day, we will continue with Eliquis 5 mg po bid 7. Gastroesophageal reflux disease.we will continue with Omeprazole 20 mg po bid along with Famotidine 20 mg po bid 8. Hyperlipidemia.we will continue with low cholesterol diet and exercise and weight loss, we will continue with Atorvastatin 20 mg po daily, keep LDL-c 55-70 9. History of pulmonary embolism and DVT. we will continue with Eliquis 5 mg po bid for life. 10. Obstructive sleep apnea. weght loss, not using her CPAP 11. COPD. we will continue with current Albuterol HFA 2 puffs inhalaton q4 h as needed along with controller inhaler in the form of Breo Ellipta daily 12. Anxiety disoder. we will continue with Prozac 40 mg po bid along with Xanax 2 mg po tid , has been under the care of , we will continue with Lamotrigine and Seroquel as well. 13. Allergic rhinitis. we will continue with Montelukast 10 mg po qhs. 14. DVT prophylaxis. we will continue with Eliquis 5 mg po bid. 15. GI prophylaxis. we will continue with PPI and Famotidine. 16. Patient can be discharged home and follow-up with me as an outpatient Objective - Vital Signs Vital signs: Vital Signs Temp 98.5 F 10/29/22 10:58 Pulse 85 10/29/22 10:58 Resp 16 10/29/22 10:58 BP 130/86 10/29/22 10:58 Pulse Ox 93 L 10/29/22 10:58 FiO2 Intake & Output 10/28/22 10/29/22 10/29/22 18:59 06:59 18:59 Intake Total 236 Balance 236 Intake: Oral 236 Other: Voiding Method Diaper Toilet Toilet Diaper Diaper Incontinent Incontinent # Voids 0 2 - Labs CBC & Chem 7: 10/27/22 09:30 10/27/22 09:30
[2022-10-29] MEDS: QUEtiapine 50 MG TAB PO SCH (18:20)
[2022-10-29] MEDS: lamoTRIgine 25 MG TAB PO SCH (18:20)
[2022-10-29] MEDS: QUEtiapine 100 MG TAB PO SCH (20:10)
[2022-10-29] MEDS: MONTELUKAST 10 MG TAB PO SCH (20:10)
[2022-10-30] MEDS: ONDANSETRON ODT 4 MG TAB PO PRN (00:07)
[2022-10-30] MEDS: ALPRAZolam 1 MG TAB PO SCH ×2 (00:11→08:20)
[2022-10-30] MEDS: NITROGLYCERIN OINT 1 INCH/GM PACKET TOPICAL SCH ×3 (00:11→08:40)
[2022-10-30] MEDS: PANTOPRAZOLE 40 MG TABLET PO SCH (06:25)
[2022-10-30 07:16] VITALS: PULSE 64; TEMP 98.2
[2022-10-30] MEDS: SYMBICORT 160-4.5 MCG INHALER INHALATION SCH (08:47)
[2022-10-30] MEDS: APIXABAN 5 MG TAB PO SCH (08:54)
[2022-10-30] MEDS: FLUoxetine HCL 20 MG CAP PO SCH (08:55)
[2022-10-30] MEDS: ATORVASTATIN 10 MG TAB PO SCH (08:55)
[2022-10-30] MEDS: FAMOTIDINE 20 MG TAB PO SCH (08:55)
[2022-10-30] MEDS: METOPROLOL SUCCINATE (ER) 50 MG TAB.ER.24H PO SCH (08:56)
[2022-10-30] MEDS: CHOLECALCIFEROL 25 MCG (1000 IU) TABLET PO SCH (08:56)
[2022-10-30] MEDS: CALCIUM CARBONATE 500 MG CHEWABLE PO SCH (08:56)
--- NOTE | 2022-10-30 10:40 | P.PN ---
Progress Note - Text Progress Note Date: 10/30/22 Orthopedic spine: History of present illness: Patient is a pleasant 67-year-old female who is seen and examined at bedside for follow-up evaluation of her lumbar spine. Following reviewing of MRI imaging, patient is known have an acute L5 compression fracture deformity. Prescription was prescribed for LSO bracing. This brace is supposed to be delivered today. Patient is currently resting in bed comfortably in regards to her lumbar spine. She states she has not been out of bed without brace. She states they are having her use a bedpan. She states she is urinating without difficulty. She has no complaints in regards to her ability to urinate independently. She is not currently complaining of any significant lower extremity weakness or radiculopathy bilaterally. She is able to perform good active range of motion of lower extremities independently at the bedside today. She denies any neurological change in the bilateral lower extremities. Currently, she is complaining of a headache. She states she was given hydrocodone but has not controlled her pain. She is also had some nausea this morning. She has been receiving Zofran. She previously underwent CT imaging of the brain. Patient is admitted to medicine and continues to be seen and examined by medicine for her other medical diagnoses. Physical exam: Patient is awake, alert, and oriented 3 Vital signs stable Adequate chest excursion with deep inspiration and expiration No pain with palpation over the lumbar spine Examination of lumbar spine reveals skin is intact with no abrasions, lacerations, or bruises; no erythema, purulence or signs of infection Dorsiflexion, plantarflexion, and extensor hallucis longus positive sustained bilaterally No signs or symptoms of DVT; no calf pain No pain with internal and external rotation of the hips bilaterally Neurovascularly intact Assessment: Acute L5 compression fracture deformity Chronic L4 compression fracture deformity L3-4 and L4-5 spondylolisthesis and degenerative disc disease with degenerative stenosis without severe stenosis Apparent syncopal episode Status post fall approximately 7 weeks ago Atrial fibrillation on anticoagulation Hypertension Hyperlipidemia COPD History of esophageal stricture with ballooning History of kidney stone History of DVT and pulmonary embolism Headache Nausea Plan: 1. After reviewing of imaging, physical examination the patient, and further discussion with the patient, will currently plan to continue with conservative treatment at this time. She has evidence of an acute L5 compression fracture deformity with history of chronic L4 compression fracture deformity. We are planning for bracing. A prescription has been written and provided to case management for an LSO brace. Once this brace is delivered and fitted appropriately, patient should wear this brace while sitting upright at greater than 45, during increase activities, during ambulation. Brace is not have to or while lying in bed or while bathing. Following fitting of this brace, patient is clear for discharge from an orthopedic spine standpoint. Following discharge, patient may follow-up with Edilberto Estrada PA-C or Dr. Flex Chavez at [facility] in approximately 2-3 weeks for further evaluation. Following the delivery and fitting of this brace patient is clear for discharge from orthopedic spine standpoint. 2. Patient will continue be seen in exam by medicine for her other medical diagnoses.
[2022-10-30 11:18] VITALS: BP 158/90; RESP 18
--- NOTE | 2022-10-30 12:40 | CT ---
EXAMINATION TYPE: CT brain wo con CT DLP: 1098 mGycm, Automated exposure control for dose reduction was used. DATE OF EXAM: 10/30/2022 12:21 PM COMPARISON: 10/27/2022. CLINICAL INDICATION:Female, 67 years old with history of headache, worsening post-traumatic, Headache post fall x3 days ago. TECHNIQUE: Brain: Axial CT images of the brain were obtained with coronal and sagittal reformats created and rev iewed. Contrast used: None. Oral contrast used: None. FINDINGS: Brain: Extra-axial spaces: No abnormal extra-axial fluid collections. Ventricular system: Within normal limits Cerebral parenchyma: No acute intraparenchymal hemorrhage or mass effect. The cabral-white junction is well differentiated. Cerebellum: Unremarkable. Mass effect: No evidence of midline shift. Intracranial vasculature: Atherosclerotic calcifications of the intracranial vessels. Soft tissues: Normal. Calvarium/osseous structures: No depressed skull fracture. Paranasal sinuses and mastoid air cells: Mild scattered paranasal sinus disease. Visualized orbits: Orbital contents are intact. IMPRESSION: No acute intracranial process.
--- NOTE | 2022-10-30 14:55 | P.PAINPG ---
Objective - Vital Signs Vital signs: Vital Signs Temp 98.2 F 10/30/22 07:02 Pulse 64 10/30/22 07:02 Resp 16 10/30/22 07:02 BP 153/92 10/30/22 07:02 Pulse Ox 93 L 10/30/22 08:47 FiO2 Intake & Output 10/29/22 10/30/22 10/30/22 18:59 06:59 18:59 Intake Total 236 Balance 236 Intake: Oral 236 Other: Voiding Method Toilet Toilet Diaper Diaper Incontinent Incontinent # Voids 2 1 - Labs CBC & Chem 7: 10/27/22 09:30 10/27/22 09:30 PQRS Measure Charge Sheet Comment: HISTORY OF PRESENT ILLNESS: 67 yr old inpatient female as a referral from Dr Chavez presents today w severe and chronic LBP x 2 mo s/p fall secondary to DDD, spinal stenosis, spondylosis and facet arthropathy without myelopathy for evaluation. She was admitted to the hospital 2 days ago for syncope w fall. Pt states pain level is provoked at 7 /10 in intensity with weight bearing activity, constant, localized in the lower lumbar spine where it meets the tailbone, sore in character w shooting pain occasionally towards the RLE. Pain is provoked by standing/ walking for periods of 15 min or more, or bending, lifting. Pain is alleviated by sitting, reclining and rest. PMH: aFib, Asthma, Skin CA, CHF, COPD, DVT, Fibromyalgia, GERD, Hyperlipidemia, Memory Impairment, VT (2016), OA, PE, LORIE, MDD/ Anxiety, RLA PSH: R Wrist Fx, Adenoidectomy, Appendectomy, Bariatric Surgery, Breast Surgery, Cholecystectomy, Hernia Repair, Hysterectomy, R Hip Replacement, Tonsillectomy, R Breast Biopsy, Colonoscopies SH: Negative x3 FH: Daughter- Hypoparathyroidism/ Suicide at age 26. Mo- Pancreatic CA. Fa- Lung CA. Sister- CA. Bro- CA. Also Psychiatric Disorders in family. All: See list Meds: See list REVIEW OF ORGAN SYSTEMS: CONSTITUTIONAL: No fevers or chills. No recent weight loss. NEUROLOGICAL: + numbness and tingling along the distal extremities. No seizure disorders or headaches. MUSCULOSKELETAL: + pain PSYCHIATRIC: Denies current depression or suicidal thoughts. Physical Examinations : Constitutional : Cooperative , not in acute distress . Neurologic : Cranial nerve II to XII intact. No focal neurological deficits. Psychiatric : alert & oriented x 3. Matching mood & appropriate affect. Judgment & insight intact. Musculoskeletal : Cervical Spine Motor strength in the deltoid and biceps: Normal right side. Normal Left side Motor strength biceps and the wrist extensors: Normal right side . Normal left side Motor strength in the triceps muscle: Normal right side. Normal left side Deep tendon reflexes: Normal at the biceps. Normal at Brachioradialis. Normal at triceps Vertebral body tenderness to deep palpation over Cervical facet loading test: positive bilaterally Spurling test: positive bilaterally Neck distraction test: positive bilaterally Oumar sign: positive bilaterally Lumbar spine Motor strength lower extremities ,thigh and legs 5/5 Right side , 5/5 Left side Deep tendon reflexes : Normal Knee Jerk. Normal Ankle Jerk Vertebral body tenderness over L5 Lumbar facet Loading Test: positive Right / positive Left Range of motion of the lumbar spine Flexion 30 degrees, extension 10 degrees Straight Leg Raise test: Left/ Right positive at degree Teo test: positive right / positive left. Severe tenderness over the Sacroiliac joint on the Right / Left sides Gaenslen test: positive bilaterally Seated flexion test: positive bilate rally. Sacral spine : Severe tenderness over the Sacroiliac joint: right side / left side Range of motion: Flexion of the lumbar spine <60 degrees Range of motion: Extension of the lumbar spine <20 degrees Gaenslen's Test positive Kevin's Test positive Teo test: positive right side / left side Thigh Thrust Test Sacral Thrust Test Imaging: MRI non contrast of the lumbar spine from 10/28/22 reviewed Assessment/ Plan : L5 compression fracture Recommendation of DARIUS L5-S1 on an outpatient basis. May need a series of injections for optimal pain relief. Risks, benefits of procedure discussed and patient verbalized understanding. Admits to aspirin or anti- coagulant use or medical history of diabetes. Protocol for discontinuation/ continuation of medications david procedure discussed. Would benefit from the use of a lumbar vallejo pport brace during the day while active. All questions answered. I have spent greater than 30 minutes on patient care today. Dr Murrell was available by phone for the evaluation of this patient. The time was used to review the medical records including relevant urine studies and Prescription history (MAPs), review of the available imaging, evaluation and examination of the patient, coordination of care with the medical staff and if applicable referring physicians, as well as creation of the medical record - Pain Location Left Back Non-Pharmacological Interventions: Reduce Environmental Stimuli Pharmacological Interventions: Discuss Pain Med Options Head Non-Pharmacological Interventions: Reduce Environmental Stimuli Pharmacological Interventions: Discuss Pain Med Options, PRN Medication Lower Back Non-Pharmacological Interventions: Position/Reposition, Reduce Environmental Stimuli Pharmacological Interventions: Discuss Pain Med Options, PRN Medication Pain Comment: states she has a severely broken back and chronic neck head pain PQRS Narrative: Smoking Status Never smoker Blood Pressure [Right Arm 108/75 Standing] Blood Pressure [Right Arm 118/80 Sitting] Blood Pressure [Right Arm 130/86 Supine] Blood Pressure [Right Arm] 153/92 Blood Pressure 130/86 Pain Intensity [Lower Back] 0 Pain Intensity [Chest] 0 Pain Intensity [Head] 2 Pain Intensity [Left Back] 5 Pain Intensity 7 Pain Scale Used Numeric (1 - 10) Scale Used Numeric (1 - 10) Home Medications: Ambulatory Orders ALPRAZolam [Xanax] 2 mg PO TID 12/14/13 FLUoxetine HCL [PROzac] 40 mg PO BID 12/14/13 QUEtiapine [SEROquel] 100 mg PO HS 01/04/16 Fluticasone/Vilanterol [Breo Ellipta 200-25 Mcg Inhaler] 1 puff INHALATION RT- DAILY 05/15/18 Apixaban [Eliquis] 5 mg PO BID 30 Days #60 tab 02/05/19 Albuterol Sulfate [Ventolin HFA] 2 puff INHALATION RT-Q6H PRN 12/09/19 Atorvastatin [Lipitor] 10 mg PO DAILY 12/09/19 Cholecalciferol [Vitamin D3 (25 Mcg = 1000 Iu)] 100 mcg PO BID 12/10/20 Omeprazole 20 mg PO AC-BID 12/10/20 lamoTRIgine [LaMICtal] 50 mg PO W/SUPPER 12/10/20 Famotidine 20 mg PO BID 10/06/21 Metoprolol Succinate (ER) [Toprol XL] 50 mg PO DAILY 11/19/21 Montelukast [Singulair] 10 mg PO HS 11/19/21 Ondansetron Odt [Zofran ODT] 4 mg PO Q8H PRN 11/19/21 Calcium Carbonate [Calcium] 600 mg PO BID 08/03/22 Aspirin 81 mg PO DAILY tab 08/04/22 QUEtiapine [SEROquel] 50 mg PO W/SUPPER 08/13/22 Dextroamphetamine/Amphetamine [Adderall] 20 mg PO BID@0800,1500 10/27/22 HYDROcodone/APAP 5-325MG [[place] 5-325] 1 tab PO BID PRN 10/27/22 Isosorbide Mononitrate ER [Imdur] 30 mg PO HS 10/27/22 QUEtiapine [SEROquel] 25 mg PO DAILY PRN 10/27/22 Controlled Substance Measures - Controlled Substance Measures Is patient prescribed a controlled substance at discharge?: No
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
== END 2022-10-30 16:28 | disposition home health service (06) ==
LOC: EC 09:11 → 6NMEDSUR 12:19
PROVIDERS: ADMIT Internal Medicine; ATTEND Internal Medicine
DX: R55 Syncope and collapse (principal); S32.050A Wedge compression fracture of fifth lumbar vertebra, initial encounter for closed fracture; S09.90XA Unspecified injury of head, initial encounter; I11.0 Hypertensive heart disease with heart failure; I50.9 Heart failure, unspecified; J44.9 Chronic obstructive pulmonary disease, unspecified; F03.90 Unspecified dementia, unspecified severity, without behavioral disturbance, psychotic disturbance, mood disturbance, and anxiety; M79.7 Fibromyalgia; D64.9 Anemia, unspecified; G47.33 Obstructive sleep apnea (adult) (pediatric); F41.9 Anxiety disorder, unspecified; F32.A Depression, unspecified; M43.16 Spondylolisthesis, lumbar region; K21.9 Gastro-esophageal reflux disease without esophagitis; E78.5 Hyperlipidemia, unspecified; I48.0 Paroxysmal atrial fibrillation; M48.56XA Collapsed vertebra, not elsewhere classified, lumbar region, initial encounter for fracture; I25.2 Old myocardial infarction; G25.81 Restless legs syndrome; M51.36 Other intervertebral disc degeneration, lumbar region; M85.88 Other specified disorders of bone density and structure, other site; I67.2 Cerebral atherosclerosis; M48.07 Spinal stenosis, lumbosacral region; J30.9 Allergic rhinitis, unspecified; G89.29 Other chronic pain; Z86.718 Personal history of other venous thrombosis and embolism; Z86.711 Personal history of pulmonary embolism; Z85.828 Personal history of other malignant neoplasm of skin; Z98.84 Bariatric surgery status; Z90.49 Acquired absence of other specified parts of digestive tract; Z79.899 Other long term (current) drug therapy; Z79.01 Long term (current) use of anticoagulants; Z79.82 Long term (current) use of aspirin; Z90.710 Acquired absence of both cervix and uterus; Z96.641 Presence of right artificial hip joint; Z80.0 Family history of malignant neoplasm of digestive organs; Z80.1 Family history of malignant neoplasm of trachea, bronchus and lung; Z82.49 Family history of ischemic heart disease and other diseases of the circulatory system; Z63.4 Disappearance and death of family member; Z80.2 Family history of malignant neoplasm of other respiratory and intrathoracic organs; Z80.3 Family history of malignant neoplasm of breast; Z81.8 Family history of other mental and behavioral disorders; W00.0XXA Fall on same level due to ice and snow, initial encounter; W18.39XA Other fall on same level, initial encounter; Y92.008 Other place in unspecified non-institutional (private) residence as the place of occurrence of the external cause
CPT/HCPCS: 96376 ×2; 96374; 99285; 36415; 94640 ×5; 94760 ×2; 93005; 80061; 80053; 83735; 84484; 85025; 85610; 85730; 71046; 70450 ×2; 72158; G0378 ×4; A9585; J1170 ×2

== ENCOUNTER 2022-12-24 21:26 | Observation (INO) | payer MEDICARE, OTHER ==
[2022-12-24] MEDS ORDERED: SODIUM CHLORIDE 0.9% 1,000 ML IV STA (21:34)
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
[2022-12-24 21:52] LABS: Basophils % (A) 0 %; Eosinophils # (A) 0.2 k/uL (0-0.7); Eosinophils % (A) 3 %; HCT 40.3 % (34.0-46.0); HGB 12.4 gm/dL (11.4-16.0); Hypochromasia Slight; Lymphocytes # (A) 2.2 k/uL (1.0-4.8); Lymphocytes % (A) 34 %; MCH 29.7 pg (25.0-35.0); MCHC 30.8 g/dL (31.0-37.0); MCV 96.6 fL (80.0-100.0); Mean Platelet Volume 9.5; Monocytes # (A) 0.5 k/uL (0-1.0); Monocytes % (A) 7 %; Neutrophils # (A) 3.6 k/uL (1.3-7.7); Neutrophils % (A) 54 %; Platelet Count 237 k/uL (150-450); RBC 4.17 m/uL (3.80-5.40); RDW 13.1 % (11.5-15.5); WBC 6.6 k/uL (3.8-10.6)
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
[2022-12-24 22:09] LABS: INR 0.9 (<1.2); Prothrombin Time 9.6 sec (9.0-12.0)
[2022-12-24 22:23] LABS: ALT 18 U/L (4-34); AST 36 U/L (14-36); African American GFR (CKD) 79 (>60 ml/min/1.73 sqM); Albumin 3.8 g/dL (3.5-5.0); Alcohol <10 mg/dL; Alkaline Phosphatase 89 U/L (38-126); Anion Gap 7 mmol/L; Blood Urea Nitrogen 19 mg/dL (7-17); Calcium 8.7 mg/dL (8.4-10.2); Carbon Dioxide 22 mmol/L (22-30); Chloride 111 mmol/L (98-107); Glucose 70 mg/dL (74-99); Non-African American GFR(CKD) 69 (>60 ml/min/1.73 sqM); Potassium 5.3 mmol/L (3.5-5.1); Sodium 140 mmol/L (137-145); Total Bilirubin 0.7 mg/dL (0.2-1.3); Total Protein 6.7 g/dL (6.3-8.2)
[2022-12-24 22:26] LABS: Partial Thromboplastin Time 18.5 sec (22.0-30.0)
[2022-12-25] MEDS ORDERED: MORPHINE SULFATE 4 MG/ML SYRINGE IV STA (00:49)
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
[2022-12-25 01:26] LABS: Amphetamine Screen,Urine Not Detected (NotDetected); Barbiturate Screen,Urine Not Detected (NotDetected); Benzodiazepines Screen,Urine Detected (NotDetected); Cocaine Screen,Urine Not Detected (NotDetected); Methadone Screen, Urine Not Detected (NotDetected); Opiate Screen,Urine Not Detected (NotDetected); Oxycodone Screen, Urine Not Detected (NotDetected); Phencyclidine Screen,Urine Not Detected (NotDetected); Tricyclic Antidepressant,Urine Not Detected (NotDetected); Urn Cannabinoid Scrn Not Detected (NotDetected)
[2022-12-25] MEDS ORDERED: NALOXONE 0.4 MG/ML 1 ML VIAL IV PRN (03:08)
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
[2022-12-25] MEDS: SODIUM CHLORIDE 0.9% 1,000 ML IV SCH ×2 (05:00→17:47)
[2022-12-25] MEDS ORDERED: QUEtiapine 25 MG TAB PO PRN (09:47)
[2022-12-25] MEDS ORDERED: MECLIZINE 25 MG TAB PO PRN (09:47)
[2022-12-25] MEDS ORDERED: ALBUTEROL NEBULIZED 2.5 MG/3 ML INHALATION PRN (09:47)
[2022-12-25] MEDS: CHOLECALCIFEROL 25 MCG (1000 IU) TABLET PO SCH ×2 (10:23→21:30)
[2022-12-25] MEDS: APIXABAN 5 MG TAB PO SCH ×2 (10:23→21:30)
[2022-12-25] MEDS: PANTOPRAZOLE 40 MG TABLET PO SCH (10:23)
[2022-12-25] MEDS: ASPIRIN 81 MG PO SCH (10:23)
[2022-12-25] MEDS: ATORVASTATIN 10 MG TAB PO SCH (10:23)
[2022-12-25] MEDS: ALPRAZolam 1 MG TAB PO SCH ×3 (10:23→23:48)
[2022-12-25] MEDS: FLUoxetine HCL 20 MG CAP PO SCH ×2 (10:23→21:29)
[2022-12-25] MEDS: METOPROLOL SUCCINATE (ER) 50 MG TAB.ER.24H PO SCH (10:23)
[2022-12-25] MEDS: FAMOTIDINE 20 MG TAB PO SCH ×2 (10:23→21:30)
[2022-12-25] MEDS: CALCIUM CARBONATE 500 MG CHEWABLE PO SCH ×2 (10:23→21:29)
[2022-12-25] MEDS: HYDROcodone/APAP 5-325MG 1 EACH TAB PO PRN (10:30)
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
[2022-12-25] MEDS ORDERED: QUEtiapine 50 MG TAB PO SCH (17:30)
[2022-12-25] MEDS ORDERED: lamoTRIgine 25 MG TAB PO SCH (17:30)
[2022-12-25] MEDS: SYMBICORT 160-4.5 MCG INHALER INHALATION SCH (19:53)
[2022-12-25] MEDS ORDERED: MONTELUKAST 10 MG TAB PO SCH (21:00)
[2022-12-25] MEDS ORDERED: ISOSORBIDE MONONITRATE ER 30 MG TAB.ER.24H PO SCH (21:00)
[2022-12-25] MEDS ORDERED: QUEtiapine 100 MG TAB PO SCH (21:00)
[2022-12-26] MEDS: SODIUM CHLORIDE 0.9% 1,000 ML IV SCH (03:33)
[2022-12-26 05:41] VITALS: RESP 16; TEMP 98.8
[2022-12-26] MEDS: PANTOPRAZOLE 40 MG TABLET PO SCH (06:24)
[2022-12-26] MEDS: HYDROcodone/APAP 5-325MG 1 EACH TAB PO PRN ×2 (06:51→16:26)
[2022-12-26 08:39] VITALS: BP 121/81; PULSE 86
[2022-12-26] MEDS: FAMOTIDINE 20 MG TAB PO SCH (08:40)
[2022-12-26] MEDS: FLUoxetine HCL 20 MG CAP PO SCH (08:40)
[2022-12-26] MEDS: APIXABAN 5 MG TAB PO SCH (08:40)
[2022-12-26] MEDS: CALCIUM CARBONATE 500 MG CHEWABLE PO SCH (08:40)
[2022-12-26] MEDS: METOPROLOL SUCCINATE (ER) 50 MG TAB.ER.24H PO SCH (08:40)
[2022-12-26] MEDS: ATORVASTATIN 10 MG TAB PO SCH (08:40)
[2022-12-26] MEDS: ALPRAZolam 1 MG TAB PO SCH ×2 (08:40→16:26)
[2022-12-26] MEDS: ASPIRIN 81 MG PO SCH (08:40)
[2022-12-26] MEDS: CHOLECALCIFEROL 25 MCG (1000 IU) TABLET PO SCH (08:40)
[2022-12-26 08:58] LABS: Glucose,Whole Blood 83 mg/dL (70-110)
[2022-12-26] MEDS: SYMBICORT 160-4.5 MCG INHALER INHALATION SCH (09:12)
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
--- NOTE | 2022-12-26 15:17 | XR ---
EXAMINATION TYPE: XR ankle complete LT DATE OF EXAM: 12/26/2022 COMPARISON: NONE HISTORY: Pain FINDINGS: Three views of the ankle demonstrate the ankle mortise to be intact and symmetric. The joint spaces are preserved. The osseous structures are intact. A tiny plantar calcaneal spur. Vascular calcifica tions noted. IMPRESSION: 1. No definite acute fracture or dislocation, if symptoms persist follow-up study in 7 to 10 days wou ld be suggested.
--- NOTE | 2022-12-26 15:18 | XR ---
EXAMINATION TYPE: XR femur LT DATE OF EXAM: 12/26/2022 COMPARISON: NONE HISTORY: Pain TECHNIQUE: 4 views submitted FINDINGS: There is diffuse osteopenia. There is a spur involving greater trochanter. Vascular calcifi cations are seen and there is moderate to severe arthropathy of the hip joint. Chondrocalcinosis and arthropathy of the knee joint. No acute fracture or destructive change. IMPRESSION: 1. Moderate to severe left hip arthropathy. 2. Diffuse osteopenia. 3. Chondrocalcinosis with mild knee arthropathy correlate for osteoarthritis versus deposition arthro emre.
--- NOTE | 2022-12-26 15:19 | XR ---
EXAMINATION TYPE: XR tibia fibula LT DATE OF EXAM: 12/26/2022 COMPARISON: NONE HISTORY: Pain TECHNIQUE: Two views are submitted. FINDINGS: The osseous structures are intact. No soft tissue calcifications are seen. Diffuse osteopenia. Mild n arrowing of the knee joint. Question chondrocalcinosis along the lateral compartment. IMPRESSION: 1. No acute osseous abnormality. Diffuse osteopenia.
--- NOTE | 2022-12-26 15:20 | XR ---
EXAMINATION TYPE: XR knee 4V LT DATE OF EXAM: 12/26/2022 COMPARISON: NONE HISTORY: Pain TECHNIQUE: Three views are submitted. FINDINGS: Diffuse osteopenia. There is chondrocalcinosis. Mild narrowing of the knee joint. Vascular calcificat ion seen.. Osseous structures are intact. No acute fracture seen. IMPRESSION: 1. No acute fracture or dislocation. Diffuse osteopenia and mild osteoarthritis favored over deposit ion arthropathy.
== END 2022-12-26 16:36 | disposition home or self-care (01) ==
LOC: EC 21:26 → 6NMEDSUR 12-25 03:09
PROVIDERS: ADMIT Internal Medicine; ATTEND Internal Medicine
DX: S06.9X9A Unspecified intracranial injury with loss of consciousness of unspecified duration, initial encounter (principal); M54.9 Dorsalgia, unspecified; G89.29 Other chronic pain; J44.9 Chronic obstructive pulmonary disease, unspecified; F03.90 Unspecified dementia, unspecified severity, without behavioral disturbance, psychotic disturbance, mood disturbance, and anxiety; M79.7 Fibromyalgia; D64.9 Anemia, unspecified; G47.33 Obstructive sleep apnea (adult) (pediatric); F41.9 Anxiety disorder, unspecified; F32.A Depression, unspecified; K21.9 Gastro-esophageal reflux disease without esophagitis; E78.5 Hyperlipidemia, unspecified; I11.0 Hypertensive heart disease with heart failure; I67.2 Cerebral atherosclerosis; I50.9 Heart failure, unspecified; I25.2 Old myocardial infarction; M51.36 Other intervertebral disc degeneration, lumbar region; K44.9 Diaphragmatic hernia without obstruction or gangrene; M16.12 Unilateral primary osteoarthritis, left hip; M25.78 Osteophyte, vertebrae; I48.0 Paroxysmal atrial fibrillation; J30.9 Allergic rhinitis, unspecified; M85.88 Other specified disorders of bone density and structure, other site; M11.262 Other chondrocalcinosis, left knee; G25.81 Restless legs syndrome; M77.32 Calcaneal spur, left foot; Z86.718 Personal history of other venous thrombosis and embolism; Z86.711 Personal history of pulmonary embolism; Z80.8 Family history of malignant neoplasm of other organs or systems; Z96.641 Presence of right artificial hip joint; Z79.899 Other long term (current) drug therapy; Z79.01 Long term (current) use of anticoagulants; Z79.82 Long term (current) use of aspirin; Z98.84 Bariatric surgery status; Z90.49 Acquired absence of other specified parts of digestive tract; Z90.710 Acquired absence of both cervix and uterus; Z80.0 Family history of malignant neoplasm of digestive organs; Z80.1 Family history of malignant neoplasm of trachea, bronchus and lung; Z81.8 Family history of other mental and behavioral disorders; Z82.49 Family history of ischemic heart disease and other diseases of the circulatory system; Z80.2 Family history of malignant neoplasm of other respiratory and intrathoracic organs; Z80.3 Family history of malignant neoplasm of breast; Z63.4 Disappearance and death of family member; Y01.XXXA Assault by pushing from high place, initial encounter
CPT/HCPCS: 96374; 99285; 36415; 94640 ×2; 94760 ×2; 93005; 86900; 86901; 80053; 84484; 85025; 85610; 85730; 86850; 80306; 72170; 73552; 73590; 73564; 73610; 71045; 72125; 70450 ×2; 71260; 74177; G0378 ×2; G0480; J2270; Q9967; 80320

== ENCOUNTER 2023-02-19 11:53 | Inpatient (IN) | payer MEDICARE, OTHER ==
[2023-02-19] MEDS ORDERED: ASPIRIN 81 MG PO STA (12:28)
[2023-02-19] MEDS ORDERED: ALPRAZolam 0.5 MG TAB PO STA (12:29)
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
[2023-02-19 12:57] LABS: Basophils % (A) 0 %; Eosinophils # (A) 0.1 k/uL (0-0.7); Eosinophils % (A) 3 %; HCT 36.5 % (34.0-46.0); HGB 11.8 gm/dL (11.4-16.0); Hypochromasia Slight; Lymphocytes # (A) 1.1 k/uL (1.0-4.8); Lymphocytes % (A) 20 %; MCH 31.4 pg (25.0-35.0); MCHC 32.5 g/dL (31.0-37.0); MCV 96.7 fL (80.0-100.0); Mean Platelet Volume 8.7; Monocytes # (A) 0.4 k/uL (0-1.0); Monocytes % (A) 8 %; Neutrophils # (A) 3.6 k/uL (1.3-7.7); Neutrophils % (A) 68 %; Platelet Count 213 k/uL (150-450); RBC 3.77 m/uL (3.80-5.40); RDW 13.2 % (11.5-15.5); WBC 5.3 k/uL (3.8-10.6)
[2023-02-19 13:06] LABS: INR 0.9 (<1.2); Partial Thromboplastin Time 23.3 sec (22.0-30.0)
[2023-02-19 13:10] LABS: ALT 20 U/L (4-34); AST 31 U/L (14-36); African American GFR (CKD) 84 (>60 ml/min/1.73 sqM); Albumin 3.6 g/dL (3.5-5.0); Alkaline Phosphatase 90 U/L (38-126); Anion Gap 4 mmol/L; Blood Urea Nitrogen 19 mg/dL (7-17); Calcium 8.5 mg/dL (8.4-10.2); Carbon Dioxide 25 mmol/L (22-30); Chloride 108 mmol/L (98-107); Glucose 93 mg/dL (74-99); Lipase 77 U/L (23-300); Non-African American GFR(CKD) 73 (>60 ml/min/1.73 sqM); Potassium 4.3 mmol/L (3.5-5.1); Sodium 137 mmol/L (137-145); Total Bilirubin 0.8 mg/dL (0.2-1.3); Total Protein 6.3 g/dL (6.3-8.2)
--- NOTE | 2023-02-19 13:22 | XR ---
EXAMINATION TYPE: XR chest 2V DATE OF EXAM: 02/19/2023 COMPARISON: 12/24/2022. HISTORY: Chest pain with atrial fibrillation. TECHNIQUE: Frontal and lateral views of the chest are obtained. FINDINGS: There is no focal air space opacity, pleural effusion, or pneumothorax seen. The cardiac silhouette size is within normal limits. The osseous structures are intact. IMPRESSION: No acute cardiopulmonary process.
[2023-02-19] MEDS ORDERED: NITROGLYCERIN SL TABS 0.4 MG TAB SUBLINGUAL PRN ×2 (13:32→17:28)
[2023-02-19] MEDS ORDERED: NALOXONE 0.4 MG/ML 1 ML VIAL IV PRN (14:04)
[2023-02-19] MEDS ORDERED: ACETAMINOPHEN TAB 325 MG TAB PO PRN (14:04)
[2023-02-19 14:23] LABS: Appearance,Urine Cloudy (Clear); Bilirubin,Urine 1+ (Negative); Blood,Urine Moderate (Negative); Color,Urine Light Red; Glucose,Urine (UA) Negative (Negative); Hyaline Casts,Urine 15 /lpf (0-2); Ketones,Urine Trace (Negative); Leukocyte Esterase,Urine Small (Negative); Mucus,Urine Many /hpf; Nitrite,Urine Negative (Negative); Protein,Urine 1+ (Negative); RBC,Urine 160 /hpf (0-5); Specific Gravity,Urine 1.028 (1.001-1.035); Squamous Epithelial Cell,Urine 1 /hpf (0-4); WBC,Urine 6 /hpf (0-5)
[2023-02-19] MEDS ORDERED: QUEtiapine 25 MG TAB PO PRN (17:28)
[2023-02-19] MEDS ORDERED: ONDANSETRON ODT 4 MG TAB PO PRN (17:28)
[2023-02-19] MEDS ORDERED: ALBUTEROL NEBULIZED 2.5 MG/3 ML INHALATION PRN (17:28)
[2023-02-19] MEDS ORDERED: MECLIZINE 25 MG TAB PO PRN (17:28)
[2023-02-19] MEDS: PANTOPRAZOLE 40 MG TABLET PO SCH (18:01)
[2023-02-19] MEDS: lamoTRIgine 25 MG TAB PO SCH (18:01)
[2023-02-19] MEDS: QUEtiapine 50 MG TAB PO SCH (18:01)
[2023-02-19] MEDS: HYDROcodone/APAP 5-325MG 1 EACH TAB PO PRN (18:03)
[2023-02-19] MEDS: CHOLECALCIFEROL 25 MCG (1000 IU) TABLET PO SCH (20:33)
[2023-02-19] MEDS: FAMOTIDINE 20 MG TAB PO SCH (20:33)
[2023-02-19] MEDS: APIXABAN 5 MG TAB PO SCH (20:34)
[2023-02-19] MEDS: MONTELUKAST 10 MG TAB PO SCH (20:34)
[2023-02-19] MEDS: QUEtiapine 100 MG TAB PO SCH (20:35)
[2023-02-19] MEDS: ISOSORBIDE MONONITRATE ER 30 MG TAB.ER.24H PO SCH (20:35)
[2023-02-19] MEDS: FLUoxetine HCL 20 MG CAP PO SCH (20:36)
[2023-02-19] MEDS: CALCIUM CARB-VIT D 500 MG-5 MCG TAB PO SCH (20:36)
[2023-02-19] MEDS: ALPRAZolam 1 MG TAB PO SCH (21:21)
[2023-02-20] MEDS ORDERED: SODIUM CHLORIDE 0.9% 1,000 ML IV ONE (01:06)
[2023-02-20] MEDS: HYDROcodone/APAP 5-325MG 1 EACH TAB PO PRN (05:06)
[2023-02-20] MEDS: SYMBICORT 160-4.5 MCG INHALER INHALATION SCH ×2 (08:52→19:32)
[2023-02-20] MEDS ORDERED: METOPROLOL SUCCINATE (ER) 50 MG TAB.ER.24H PO SCH (09:00)
[2023-02-20] MEDS: FAMOTIDINE 20 MG TAB PO SCH ×2 (09:30→20:51)
[2023-02-20] MEDS: ALPRAZolam 1 MG TAB PO SCH ×3 (09:30→20:51)
[2023-02-20] MEDS: FLUoxetine HCL 20 MG CAP PO SCH ×2 (09:30→20:51)
[2023-02-20] MEDS: CHOLECALCIFEROL 25 MCG (1000 IU) TABLET PO SCH ×2 (09:31→20:50)
[2023-02-20] MEDS: ASPIRIN 81 MG PO SCH (09:31)
[2023-02-20] MEDS: CALCIUM CARB-VIT D 500 MG-5 MCG TAB PO SCH ×2 (09:31→20:51)
[2023-02-20] MEDS: ATORVASTATIN 10 MG TAB PO SCH (09:31)
[2023-02-20] MEDS: APIXABAN 5 MG TAB PO SCH ×2 (09:31→20:50)
[2023-02-20] MEDS: PANTOPRAZOLE 40 MG TABLET PO SCH ×2 (09:31→18:26)
--- NOTE | 2023-02-20 09:58 | P.CRDCN ---
History of Present Illness History of present illness: HISTORY OF PRESENT ILLNESS: This is a 67-year-old female with a past medical history significant for atrial fibrillation, fibromyalgia, hypertension, hyperlipidemia, and DVT. Patient follows in the office with Dr. Martinez. We have been asked to see the patient in consultation for chest pain. Patient examined at the bedside. Patient states yesterday morning when she woke up she was feeling lightheaded and short of breath. She states that she went to sit on the sofa to relax. She reports taking her morning medications and then states that she started to see stars. She reports that she began to get pain in the middle of her chest in her epigastric region. She also states that she has been going in and out of A. fib a lot at home recently. * EKG reveals sinus mechanism with PACs * Chest xray negative for acute process * Laboratory data: WBC 5.3. Hemoglobin 11.8. Platelet count 213. Sodium 137. Potassium 4.3. BUN 19. Creatinine 0.83. Magnesium 2.0. Troponin negative 3. * Current home cardiac medications include Eliquis 5 mg twice a day, aspirin 81 mg daily, Lipitor 10 mg daily, Imdur 30 mg at night, metoprolol succinate 50 mg daily * Most recent echocardiogram obtained in July 2022 revealed normal LV systolic function with mild mitral regurgitation * Patient underwent Lexiscan stress test in July 2022 which was negative for ischemia REVIEW OF SYSTEMS: At the time of my exam: CONSTITUTIONAL: Denies fever or chills. HEENT: Denies blurred vision, vision changes, or eye pain. Denies hemoptysis CARDIOVASCULAR: Denies chest pain. Denies orthopnea. Denies PND. Denies palpitations RESPIRATORY: Denies shortness of breath. GASTROINTESTINAL: Denies abdominal pain. Denies nausea or vomiting. HEMATOLOGIC: Denies bleeding disorders. GENITOURINARY: Denies any blood in urine. SKIN: Denies pruitis. Denies rash. PHYSICAL EXAM: VITAL SIGNS: Reviewed. GENERAL: Well-developed in no acute distress. HEENT: Head is normocephalic. Pupils are equal, round. Sclerae anicteric. Mucous membranes of the mouth are moist. Neck supple. No JVD or thyromegaly LUNGS: Respirations even and unlabored. Lungs essentially clear to auscultation bilaterally. HEART: Regular rate and rhythm. S1 and S2 heard. ABDOMEN: Soft. Nondistended. Nontender. EXTREMITIES: Normal range of motion. No clubbing or cyanosis. Peripheral pulses intact. No lower extremity edema NEUROLOGIC: Awake and alert. Oriented x 3. ASSESSMENT: Chest pain, troponins negative 3 Palpitations Paroxysmal atrial fibrillation Hypertension Hyperlipidemia History of DVT Fibromyalgia PLAN: An acute coronary event has been ruled out Obtain 2-D echo to assess cardiac structure and function Patient to receive 30 day event monitor at the time of discharge Patient may be discharged home this afternoon and follow-up on an outpatient basis Nurse practitioner note has been reviewed by physician. Signing provider agrees with the documented findings, assessment, and plan of care. Past Medical History Past Medical History: Atrial Fibrillation, Asthma, Cancer, Heart Failure, COPD, Dementia, Deep Vein Thrombosis (DVT), Fibromyalgia, GERD/Reflux, GI Bleed, Hyperlipidemia, Memory Impairment, Myocardial Infarction (SD), Osteoarthritis (OA), Pneumonia, Pulmonary Embolus (PE), Sleep Apnea/CPAP/BIPAP Additional Past Medical History / Comment(s): had pneumonia fall 2020, skin cancer with removals, pt states she had a SD in 2015, hypotension, dementia/memory issues d/t of daughter, esophageal strictures w/ballooning, diverticular disease, anemia, RLS, kidney stones, sinus problems, LORIE-not using CPAP, fx. ribs & was adm. & found to have bad gallbladder, hx. of lung nodules-had lavage, PE's & DVT-unsure of cause, takes metoprolol for a-fib, fell and fx. right wrist-has half cast/splint Last Myocardial Infarction Date:: 2015 History of Any Multi-Drug Resistant Organisms: None Reported Past Surgical History: Adenoidectomy, Appendectomy, Bariatric Surgery, Breast Surgery, Cholecystectomy, Hernia Repair, Hysterectomy, Joint Replacement, Tonsillectomy Additional Past Surgical History / Comment(s): R breast bx. x2, 3 umbilical hernia repairs, lithotripsies, gastric bypass, L chao benign tumor, multiple skin bx/skin cancer removals, EGD/dilations and colonoscopies. rt hip replaceme nt Past Anesthesia/Blood Transfusion Reactions: Previous Problems w/ Anesthesia Additional Past Anesthesia/Blood Transfusion Reaction / Comment(s): bp dips low, tends to bleed alot w/surgeries, no problems w/blood transfusions Past Psychological History: Anxiety, Depression Smoking Status: Never smoker Past Alcohol Use History: None Reported Past Drug Use History: None Reported - Past Family History Brother(s) Family Medical History: Cancer Additional Family Medical History / Comment(s): Psychiatric history also runs in the patient's family. The patient's daughter has committed suicide. The patient's brother and sister and mother all of cancers. Apparently rest cancer and esophageal cancer and pancreatic cancer runs in family unable to give detailed history on that. Sister(s) Family Medical History: Cancer Father Family Medical History: Cancer Additional Family Medical History / Comment(s): Father had lung cancer. Mother Family Medical History: Cancer Additional Family Medical History / Comment(s): Mother had pancreatic cancer. Medications and Allergies Home Medications Medication Instructions Recorded Confirmed Type ALPRAZolam [Xanax] 2 mg PO TID 12/14/13 02/19/23 History FLUoxetine HCL [PROzac] 40 mg PO BID 12/14/13 02/19/23 History QUEtiapine [SEROquel] 100 mg PO HS 01/04/16 02/19/23 History Fluticasone/Vilanterol [Breo 1 puff INHALATION RT-DAILY 05/15/18 02/19/23 History Ellipta 200-25 Mcg Inhaler] Apixaban [Eliquis] 5 mg PO BID 30 Days #60 tab 02/05/19 02/19/23 Rx Albuterol Sulfate [Ventolin HFA] 2 puff INHALATION RT-Q6H PRN 12/09/19 02/19/23 History Atorvastatin [Lipitor] 10 mg PO DAILY 12/09/19 02/19/23 History Cholecalciferol [Vitamin D3 (25 100 mcg PO BID 12/10/20 02/19/23 History Mcg = 1000 Iu)] Omeprazole 20 mg PO AC-BID 12/10/20 02/19/23 History lamoTRIgine [LaMICtal] 50 mg PO W/SUPPER 12/10/20 02/19/23 History Famotidine 20 mg PO BID 10/06/21 02/19/23 History Metoprolol Succinate (ER) [Toprol 50 mg PO DAILY 11/19/21 02/19/23 History XL] Montelukast [Singulair] 10 mg PO HS 11/19/21 02/19/23 History Ondansetron Odt [Zofran ODT] 4 mg PO Q8H PRN 11/19/21 02/19/23 History Calcium Carbonate [Calcium] 600 mg PO BID 08/03/22 02/19/23 History Aspirin 81 mg PO DAILY tab 08/04/22 02/19/23 Rx QUEtiapine [SEROquel] 50 mg PO W/SUPPER 08/13/22 02/19/23 History Dextroamphetamine/Amphetamine 20 mg PO BID@0800,1500 10/27/22 02/19/23 History [Adderall] HYDROcodone/APAP 5-325MG [[place] 1 tab PO BID PRN 10/27/22 02/19/23 History 5-325] Isosorbide Mononitrate ER [Imdur] 30 mg PO HS 10/27/22 02/19/23 History QUEtiapine [SEROquel] 25 mg PO DAILY PRN 10/27/22 02/19/23 History Meclizine [Antivert] 25 mg PO BID PRN tab 10/30/22 02/19/23 Rx Nitroglycerin Sl Tabs [Nitrostat] 0.4 mg SL Q5M PRN 12/24/22 02/19/23 History Allergies Allergy/AdvReac Type Severity Reaction Status Date / Time adhesive tape AdvReac Skin Verified 02/19/23 17:04 Tearing parmesan cheese Allergy Rash/Hives Uncoded 02/19/23 17:04 Physical Exam Vitals: Vital Signs Temp Pulse Pulse Resp BP BP BP 02/20/23 06:23 70 18 100/60 02/20/23 04:54 54 L 18 113/73 02/20/23 03:33 52 L 16 82/53 02/20/23 01:09 55 L 16 79/48 02/19/23 22:44 62 18 02/19/23 18:54 97.8 F 76 18 87/58 02/19/23 18:05 98.5 F 71 16 106/65 02/19/23 17:13 68 17 99/64 02/19/23 16:38 70 18 105/76 02/19/23 15:13 98.3 F 62 17 107/75 02/19/23 14:00 64 19 107/70 02/19/23 13:45 98.3 F 80 18 96/63 02/19/23 12:55 72 02/19/23 12:51 89 18 113/82 02/19/23 12:49 79 16 117/87 02/19/23 12:47 68 16 02/19/23 11:55 98.2 F 88 18 141/80 BP Pulse Ox 02/20/23 06:23 97 02/20/23 04:54 98 02/20/23 03:33 96 02/20/23 01:09 97 02/19/23 22:44 96 02/19/23 18:54 95 02/19/23 18:05 98 02/19/23 17:13 98 02/19/23 16:38 100 02/19/23 15:13 100 02/19/23 14:00 99 02/19/23 13:45 99 02/19/23 12:55 02/19/23 12:51 98 02/19/23 12:49 98 02/19/23 12:47 110/73 99 02/19/23 11:55 97 Results 02/19/23 12:42 02/19/23 12:42 Cardiac Enzymes 02/19/23 02/19/23 02/19/23 Range/Units 12:42 12:42 15:31 AST 31 (14-36) U/L Troponin I <0.012 <0.012 (0.000-0.034) ng/mL 02/19/23 Range/Units 18:27 AST (14-36) U/L Troponin I <0.012 (0.000-0.034) ng/mL Coagulation 02/19/23 Range/Units 12:42 PT 10.0 (9.0-12.0) sec APTT 23.3 (22.0-30.0) sec CBC 02/19/23 Range/Units 12:42 WBC 5.3 (3.8-10.6) k/uL RBC 3.77 L (3.80-5.40) m/uL Hgb 11.8 (11.4-16.0) gm/dL Hct 36.5 (34.0-46.0) % Plt Count 213 (150-450) k/uL Comprehensive Metabolic Panel 02/19/23 Range/Units 12:42 Sodium 137 (137-145) mmol/L Potassium 4.3 (3.5-5.1) mmol/L Chloride 108 H (98-107) mmol/L Carbon Dioxide 25 (22-30) mmol/L BUN 19 H (7-17) mg/dL Creatinine 0.83 (0.52-1.04) mg/dL Glucose 93 (74-99) mg/dL Calcium 8.5 (8.4-10.2) mg/dL AST 31 (14-36) U/L ALT 20 (4-34) U/L Alkaline Phosphatase 90 (38-126) U/L Total Protein 6.3 (6.3-8.2) g/dL Albumin 3.6 (3.5-5.0) g/dL Current Medications Generic Name Dose Route Start Last Admin Trade Name Freq PRN Reason Stop Dose Admin Acetaminophen 650 mg 02/19/23 14:04 Acetaminophen Tab 325 Mg Tab PO Q6HR PRN Mild Pain or Fever > 100.5 Hydrocodone Bitart/Acetaminophen 1 each 02/19/23 17:28 02/20/23 05:06 Hydrocodone/Apap 5-325mg 1 Each Tab PO 1 each BID PRN Administration Pain Albuterol Sulfate 2.5 mg 02/19/23 17:28 Albuterol Nebulized 2.5 Mg/3 Ml INHALATION RT-Q6H PRN Shortness Of Breath Alprazolam 2 mg 02/19/23 22:00 02/19/23 21:21 Alprazolam 1 Mg Tab PO 2 mg TID KAREEM Administration Apixaban 5 mg 02/19/23 21:00 02/19/23 20:34 Apixaban 5 Mg Tab PO 5 mg BID KAREEM Administration Protocol Aspirin 81 mg 02/20/23 09:00 Aspirin 81 Mg PO DAILY KAREEM Atorvastatin Calcium 10 mg 02/20/23 09:00 Atorvastatin 10 Mg Tab PO DAILY KAREEM Budesonide/Formoterol Fumarate 2 puff 02/20/23 08:00 Symbicort 160-4.5 Mcg Inhaler INHALATION RT-BID KAREEM Calcium Carbonate 1 each 02/19/23 21:00 02/19/23 20:36 Calcium Carb-Vit D 500 Mg-5 Mcg Tab PO 1 each BID KAREEM Administration Cholecalciferol 100 mcg 02/19/23 21:00 02/19/23 20:33 Cholecalciferol 25 Mcg (1000 Iu) Tablet PO 100 mcg BID KAREEM Administration Famotidine 20 mg 02/19/23 21:00 02/19/23 20:33 Famotidine 20 Mg Tab PO 20 mg BID KAREEM Administration Fluoxetine HCl 40 mg 02/19/23 21:00 02/19/23 20:36 Fluoxetine Hcl 20 Mg Cap PO 40 mg BID KAREEM Administration Isosorbide Mononitrate 30 mg 02/19/23 21:00 02/19/23 20:35 Isosorbide Mononitrate Er 30 Mg Tab.Er.24h PO 30 mg HS KAREEM Administration Lamotrigine 50 mg 02/19/23 18:00 02/19/23 18:01 Lamotrigine 25 Mg Tab PO 50 mg W/SUPPER KAREEM Administration Meclizine HCl 25 mg 02/19/23 17:28 Meclizine 25 Mg Tab PO BID PRN Vertigo Metoprolol Succinate 50 mg 02/20/23 09:00 Metoprolol Succinate (Er) 50 Mg Tab.Er.24h PO DAILY KAREEM Montelukast Sodium 10 mg 02/19/23 21:00 02/19/23 20:34 Montelukast 10 Mg Tab PO 10 mg HS KAREEM Administration Naloxone HCl 0.2 mg 02/19/23 14:04 Naloxone 0.4 Mg/Ml 1 Ml Vial IV Q2M PRN Opioid Reversal Nitroglycerin 0.4 mg 02/19/23 13:32 02/19/23 13:39 Nitroglycerin Sl Tabs 0.4 Mg Tab SUBLINGUAL 0.4 mg Q10M PRN Administration Chest Pain Ondansetron HCl 4 mg 02/19/23 17:28 Ondansetron Odt 4 Mg Tab PO Q8H PRN Nausea Pantoprazole Sodium 40 mg 02/19/23 18:00 02/19/23 18:01 Pantoprazole 40 Mg Tablet PO 40 mg AC-BID KAREEM Administration Quetiapine Fumarate 25 mg 02/19/23 17:28 Quetiapine 25 Mg Tab PO DAILY PRN Anxiety Quetiapine Fumarate 50 mg 02/19/23 18:00 02/19/23 18:01 Quetiapine 50 Mg Tab PO 50 mg W/SUPPER KAREEM Administration Quetiapine Fumarate 100 mg 02/19/23 21:00 02/19/23 20:35 Quetiapine 100 Mg Tab PO 100 mg HS KAREEM Administration 02/19/23 12:42 02/19/23 12:42
--- NOTE | 2023-02-20 11:59 | CA ---
Transthoracic Echo Report Name: Becca Mendiola Age: 67 Gender: F : 1955 Exam Date: 02/20/2023 10:50 Exam Location: [facility] Ht (in): 69 Wt (lb): 190 Ordering Physician: Florence Elder Attending/Referring Phys: [id number], Jael Armorer Technician Annie Bush [facility] Procedure CPT: Indications: LV function, CP Cardiac Hx: Technical Quality: Fair Contrast 1: Total Dose (mL): Contrast 2: Total Dose (mL): MEASUREMENTS (Male / Female) Normal Values 2D ECHO LV Diastolic Diameter PLAX 4.4 cm 4.2 - 5.9 / 3.9 - 5.3 cm LV Systolic Diameter PLAX 2.7 cm IVS Diastolic Thickness 0.9 cm 0.6 - 1.0 / 0.6 - 0.9 cm LVPW Diastolic Thickness 0.9 cm 0.6 - 1.0 / 0.6 - 0.9 cm LV Relative Wall Thickness 0.4 LVOT Diameter 2.0 cm Ascending Aorta Diameter 3.3 cm M-MODE Aortic Root Diameter MM 2.8 cm LA Systolic Diameter MM 3.8 cm LA Ao Ratio MM 1.3 AV Cusp Separation MM 2.0 cm DOPPLER AV Peak Velocity 141.8 cm/s AV Peak Gradient 8.0 mmHg AV Mean Velocity 108.4 cm/s AV Mean Gradient 5.2 mmHg AV Velocity Time Integral 28.9 cm LVOT Peak Velocity 110.4 cm/s LVOT Peak Gradient 4.9 mmHg LVOT Velocity Time Integral 23.4 cm LVOT Stroke Volume 71.8 cm??? LVOT Stroke Volume Index 35.5 ml/m??? LVOT Cardiac Index 2188.3 cm???/min???m??? AV Area Cont Eq vti 2.5 cm??? AV Area Cont Eq pk 2.4 cm??? Mitral E Point Velocity 62.6 cm/s Mitral A Point Velocity 83.0 cm/s Mitral E to A Ratio 0.8 MV Deceleration Time 191.0 ms LV E' Lateral Velocity 10.4 cm/s Mitral E to LV E' Lateral Ratio 6.0 LV E' Septal Velocity 8.6 cm/s Mitral E to LV E' Septal Ratio 7.3 TR Peak Velocity 230.0 cm/s TR Peak Gradient 21.2 mmHg Right Atrial Pressure 3.0 mmHg Pulmonary Artery Systolic Pressu 24.2 mmHg Right Ventricular Systolic Press 24.2 mmHg FINDINGS Left Ventricle Left ventricular wall thickness normal. Left ventricular cavity size normal. No obvious regional wall motion abnormalities. Left ventricular ejection fraction is estimated at 55-60%. Right Ventricle Severe right ventricular dilatation. Right Atrium Moderate right atrial dilatation. Left Atrium Mild left atrial dilatation. Mitral Valve Structurally normal mitral valve. Mild thickening/calcification of the posterior mitral valve leaflet. Mild mitral regurgitation. Aortic Valve Trileaflet aortic valve. No aortic regurgitation. Tricuspid Valve Structurally normal tricuspid valve. Mild tricuspid regurgitation. Pulmonic Valve Structurally normal pulmonic valve. No pulmonic regurgitation. Pericardium No pericardial effusion. Aorta Normal size aortic root and proximal ascending aorta. CONCLUSIONS Normal LV systolic function Biatrial enlargement Previewed by: Dr. Temo Hollins MD (Electronically Signed) Final Date: 20 February 2023 11:58
[2023-02-20 12:03] LABS: Basophils # (A) 0.02 X 10*3/uL (0.00-0.10); Basophils % (A) 0.5 %; Eosinophils # (A) 0.12 X 10*3/uL (0.04-0.35); Eosinophils % (A) 3.2 %; HCT 32.3 % (37.2-46.3); HGB 9.8 d/dL (12.0-15.0); Immature Grans, Automated 0 %; Lymphocytes # (A) 1.14 X 10*3/uL (0.90-5.00); Lymphocytes % (A) 30.7 %; MCH 30.7 pg (27.0-32.0); MCHC 30.3 d/dL (32.0-37.0); MCV 101.3 FL (80.0-97.0); Mean Platelet Volume 11.5 FL (9.5-12.2); Monocytes % (A) 13.5 %; NRBC Per 100 WBC 0 X 10*3/uL (0.00-0.01); Neutrophils # (A) 1.93 X 10*3/uL (1.80-7.70); Neutrophils % (A) 52.1 %; Platelet Count 216 X 10*3/uL (140-440); RBC 3.19 X 10*6/uL (4.10-5.20); RDW 13.2 % (11.5-14.5); WBC 3.71 X 10*3/uL (4.50-10.00)
[2023-02-20 12:09] LABS: BUN/Creat Ratio 20.38 Ratio (12.00-20.00); Blood Urea Nitrogen 16.3 mg/dL (9.0-27.0); Calcium 8.2 mg/dL (8.7-10.3); Chloride 110 mmol/L (96-109); Glucose 93 mg/dL (70-110); Potassium 4.4 mmol/L (3.5-5.5); Sodium 144 mmol/L (135-145)
--- NOTE | 2023-02-20 14:17 | P.PN ---
Subjective Progress Note Date: 02/20/23 HISTORY OF PRESENT ILLNESS This is a 67-year-old female patient with past medical history of paroxysmal atrial fibrillation on eliquis, hypertension, hyperlipidemia, COPD, gastroes ophageal reflux disease, esophageal strictures with ballooning, obstructive sleep apnea not utilizing CPAP, kidney stones, restless leg syndrome, DVT and pulmonary embolism. Patient presented to the emergency department at [facility] because of increased palpitation associated with generalized fatigue and shortness of breath, patient had contacted my office and stated that her heart rate is around 135, and she appeared to be somewhat short of breath, as he lightheaded, she was rectal to go to the ER at [facility], she was found to be somewhat hypotensive, also she did complain of chest pain associated with dizzy spell, and she stated that she was not feeling well, EKG showed baseline normal sinus rhythm with premature PAC, cardiac enzymes are negative, but because of the present issues with the hospital for evaluation by cardiology. Patient has been following up with Dr. Martinez on a regular basis, 02/20: Patient is seen today in follow-up. She has been evaluated by cardiology with plan for 30 day event monitor and follow up in the office in 5-6 weeks. Echocardiogram reveals normal LV systolic function, biatrial enlargement. Orthostatic vital signs were negative. Heart rate is running in the 70s, blood pressure 95/60. Repeat blood work reveals WBC 3.7, hemoglobin 9.8, platelet count 216. Sodium 144, potassium 4.4. Troponins were negative 3 draws. Plan to monitor patient overnight and discharged home tomorrow. REVIEW OF SYSTEMS Constitutional: No fever, no chills, no night sweats. No weight change. No weakness, fatigue or lethargy. No daytime sleepiness. HEENT: No headache. No blurred vision or double vision, no loss of vision. No loss of Hearing, no ringing in the ears, no dizziness. No nasal drainage or congestion. No epistaxis. No sore throat. Lungs: positive for shortness of breath, no cough, no sputum production. No wheezing. Cardiovascular: Reported chest pain, no lower extremity edema. No palpitations. No paroxysmal nocturnal dyspnea. No orthopnea. No lightheadedness or dizziness. positive for dyspnea on exertion Abdominal: No abdominal pain. No nausea, vomiting. No diarrhea. No constip ation. No bloody or tarry stools. No loss of appetite. Genitourinary: No dysuria, increased frequency, urgency. No urinary retention. Musculoskeletal: No myalgias. No muscle weakness, no gait dysfunction, no frequent falls. positive for back pain. No neck pain. Integumentary: No wounds, no lesions. No rash or pruritus. No unusual bruising. No change in hair or nails. Neurologic: No aphasia. No facial droop. No change in mentation. positive for head injury. No headache. No paralysis. No paresthesia, positive for vertigo Psychiatric: positive for depression and anxiety. No mood swings. Endocrine: No abnormal blood sugars. No weight change. No excessive sweating or thirst. No cold intolerance. PHYSICAL EXAMINATION Gen: This is a 67-year-old female. She is resting in bed and appears to be comfortable and in no acute distress. HEENT: Head is atraumatic, normocephalic. Pupils equal, round. Sclerae is anicteric. NECK: Supple. No JVD. No lymphadenopathy. No thyromegaly. LUNGS: Clear to auscultation. No wheezes or rhonchi. No intercostal retractions. HEART: first heart sound is depressed, second heart sound is normal, there is systolic ejection murmur 2/6 located in the left sternal border. ABDOMEN: Soft. Bowel sounds are present, soft, nontender, nondistended, positive bowel sounds no hepatosplenomegaly EXTREMITIES: No pedal edema. No calf tenderness. Dorsalis pedis +2 bilaterally. NEUROLOGICAL: Patient is awake, alert and oriented x3. Cranial nerves 2 through 12 are grossly intact. cranial nerves III-12 appear grossly intact, muscle power 4 out of 5 in upper and lower extremities bilaterally. ASSESSMENT AND PLAN 1. Chest pain. Patient's 12-lead EKG showed evidence of normal sinus rhythm with PACs, no evidence of acute ischemic changes, patient not in atrial fibrillation at this time, patient will be kept in a monitored bed, she will be seen in consultation by cardiology with she will likely need to have a 30 day event monitor last one was done about 3 years ago . Cardiology consult appreciated. 2. Transient hypotension likely the reason for her fatigue and dizzy spells. Patient did receive 1 L of normal saline in the emergency department, the blood pressure continues to be on the soft side, we will continue to monitor the patient requested, patient metoprolol was decreased as well as we'll hold for systolic blood pressures in the 100. 3. hypertension and hypertensive cardiovascular disease. Continue patient on metoprolol ER 25 mg orally once every day. 4. Paroxysmal atrial fibrillation, currently in a sinus rhythm, continue patient on metoprolol ER 25 mg orally once every day, we will continue with Eliquis 5 mg po bid 5. Gastroesophageal reflux disease.we will continue with Omeprazole 20 mg po bid along with Famotidine 20 mg po bid 6. Hyperlipidemia.we will continue with low cholesterol diet and exercise and weight loss, we will continue with Atorvastatin 20 mg po daily, keep LDL-c 55-70 7. History of pulmonary embolism and DVT. we will continue with Eliquis 5 mg po bid for life. 8. Obstructive sleep apnea. weght loss, not using her CPAP 9. COPD. we will continue with current Albuterol HFA 2 puffs inhalaton q4 h as needed along with controller inhaler in the form of Breo Ellipta daily 10. Anxiety disoder. we will continue with Prozac 40 mg po bid along with Xanax 2 mg po tid , has been under the care of , we will continue with Lamotrigine and Seroquel as well. 11. Allergic rhinitis. we will continue with Montelukast 10 mg po qhs. 12. DVT prophylaxis. we will continue with Eliquis 5 mg po bid. 13. GI prophylaxis. we will continue with PPI and Famotidine. 14. Full code. 15. Observation Impression and plan of care have been directed as dictated by the signing physician. Sita Peralta nurse practitioner acting as scribe for signing physician. Objective - Vital Signs Vital signs: Vital Signs Temp 98.0 F 02/20/23 07:35 Pulse 73 02/20/23 09:24 Resp 16 02/20/23 07:35 BP 95/60 02/20/23 09:24 Pulse Ox 98 02/20/23 08:52 FiO2 Intake & Output 02/19/23 02/20/23 02/20/23 18:59 06:59 18:59 Intake Total 240 Balance 240 Weight 86.183 kg 86.183 kg Intake: Oral 240 Other: Voiding Method Toilet - Labs CBC & Chem 7: 08/16/23 05:51 02/21/23 05:51 Labs: Abnormal Lab Results - Last 24 Hours (Table) 02/19/23 02/20/23 02/20/23 Range/Units 12:42 06:19 06:19 WBC 3.71 L (4.50-10.00) X 10*3/uL RBC 3.19 L (4.10-5.20) X 10*6/uL Hgb 9.8 L (12.0-15.0) d/dL Hct 32.3 L (37.2-46.3) % MCV 101.3 H (80.0-97.0) FL MCHC 30.3 L (32.0-37.0) d/dL Chloride 110 H (96-109) mmol/L BUN/Creatinine Ratio 20.38 H (12.00-20.00) Ratio Calcium 8.2 L (8.7-10.3) mg/dL Urine Appearance Cloudy H (Clear) Urine Protein 1+ H (Negative) Urine Ketones Trace H (Negative) Urine Blood Moderate H (Negative) Urine Bilirubin 1+ H (Negative) Ur Leukocyte Esterase Small H (Negative) Urine RBC 160 H (0-5) /hpf Urine WBC 6 H (0-5) /hpf Hyaline Casts 15 H (0-2) /lpf Urine Mucus Many H (None) /hpf
[2023-02-20] MEDS: lamoTRIgine 25 MG TAB PO SCH (18:26)
[2023-02-20] MEDS: QUEtiapine 50 MG TAB PO SCH (18:26)
--- NOTE | 2023-02-20 20:41 | P.HPIM ---
History of Present Illness H&P Date: 02/19/23 HISTORY OF PRESENT ILLNESS This is a 67-year-old female patient with past medical history of paroxysmal atrial fibrillation on eliquis, hypertension, hyperlipidemia, COPD, gas troesophageal reflux disease, esophageal strictures with ballooning, obstructive sleep apnea not utilizing CPAP, kidney stones, restless leg syndrome, DVT and pulmonary embolism. Patient presented to the emergency department at [facility] because of increased palpitation associated with generalized fatigue and shortness of breath, patient had contacted my office and stated that her heart rate is around 135, and she appeared to be somewhat short of breath, as he lightheaded, she was rectal to go to the ER at [facility], she was found to be somewhat hypotensive, also she did complain of chest pain associated with dizzy spell, and she stated that she was not feeling well, EKG showed baseline normal sinus rhythm with premature PAC, cardiac enzymes are negative, but because of the present issues with the hospital for evaluation by cardiology. Patient has been following up with Dr. Martinez on a regular basis, REVIEW OF SYSTEMS Constitutional: No fever, no chills, no night sweats. No weight change. No weakness, fatigue or lethargy. No daytime sleepiness. HEENT: No headache. No blurred vision or double vision, no loss of vision. No loss of Hearing, no ringing in the ears, no dizziness. No nasal drainage or congestion. No epistaxis. No sore throat. Lungs: positive for shortness of breath, no cough, no sputum production. No wheezing. Cardiovascular: Reported chest pain, no lower extremity edema. No palpitations. No paroxysmal nocturnal dyspnea. No orthopnea. No lightheadedness or dizziness. positive for dyspnea on exertion Abdominal: No abdominal pain. No nausea, vomiting. No diarrhea. No constipation. No bloody or tarry stools. No loss of appetite. Genitourinary: No dysuria, increased frequency, urgency. No urinary retention. Musculoskeletal: No myalgias. No muscle weakness, no gait dysfunction, no frequent falls. positive for back pain. No neck pain. Integumentary: No wounds, no lesions. No rash or pruritus. No unusual bruising. No change in hair or nails. Neurologic: No aphasia. No facial droop. No change in mentation. positive for head injury. No headache. No paralysis. No paresthesia, positive for vertigo Psychiatric: positive for depression and anxiety. No mood swings. Endocrine: No abnormal blood sugars. No weight change. No excessive sweating or thirst. No cold intolerance. MEDICAL HISTORY COPD Gastroesophageal reflux disease Pulmonary embolism and DVT Obstructive sleep apnea Paroxysmal atrial fibrillation Hypertension Hyperlipidemia Osteopenia L5-S1 foraminal stenosis DDD in the Lumbar spine with facet arthropathy. SURGICAL HISTORY Cholecystectomy in 2020 Esophageal strictures with ballooning SOCIAL HISTORY Patient is a lifelong nonsmoker, no alcohol abuse, no marijuana or illicit drug use. FAMILY HISTORY Father at age 58 from myocardial infarction. Mother at age 67 from pancreatic cancer. She has one brother from larynx cancer. One sister from breast cancer and lung cancer. PHYSICAL EXAMINATION Gen: This is a 67-year-old female. She is resting in bed and appears to be comfortable and in no acute distress. HEENT: Head is atraumatic, normocephalic. Pupils equal, round. Sclerae is anicteric. NECK: Supple. No JVD. No lymphadenopathy. No thyromegaly. LUNGS: Clear to auscultation. No wheezes or rhonchi. No intercostal retractions. HEART: first heart sound is depressed, second heart sound is normal, there is systolic ejection murmur 2/6 located in the left sternal border. ABDOMEN: Soft. Bowel sounds are present, soft, nontender, nondistended, positive bowel sounds no hepatosplenomegaly EXTREMITIES: No pedal edema. No calf tenderness. Dorsalis pedis +2 bilaterally. NEUROLOGICAL: Patient is awake, alert and oriented x3. Cranial nerves 2 through 12 are grossly intact. cranial nerves III-12 appear grossly intact, muscle power 4 out of 5 in upper and lower extremities bilaterally. ASSESSMENT AND PLAN 1. Chest pain. Patient's 12-lead EKG showed evidence of normal sinus rhythm with PACs, no evidence of acute ischemic changes, patient not in atrial fibrillation at this time, patient will be kept in a monitored bed, she will be seen in consultation by cardiology with she will likely need to have a 30 day event monitor last one was done about 3 years ago . 2. Transient hypotension likely the reason for her fatigue and dizzy spells. Patient did receive 1 L of normal saline in the emergency department, the blood pressure continues to be on the soft side, we will continue to monitor the patient requested, patient metoprolol was decreased as well as we'll hold for systolic blood pressures in the 100. 3. hypertension and hypertensive cardiovascular disease. Continue patient on metoprolol ER 25 mg orally once every day. 4. Paroxysmal atrial fibrillation, currently in a sinus rhythm, continue patient on metoprolol ER 25 mg orally once every day, we will continue with Eliquis 5 mg po bid 5. Gastroesophageal reflux disease.we will continue with Omeprazole 20 mg po bid along with Famotidine 20 mg po bid 6. Hyperlipidemia.we will continue with low cholesterol diet and exercise and weight loss, we will continue with Atorvastatin 20 mg po daily, keep LDL-c 55-70 7. History of pulmonary embolism and DVT. we will continue with Eliquis 5 mg po bid for life. 8. Obstructive sleep apnea. weght loss, not using her CPAP 9. COPD. we will continue with current Albuterol HFA 2 puffs inhalaton q4 h as needed along with controller inhaler in the form of Breo Ellipta daily 10. Anxiety disoder. we will continue with Prozac 40 mg po bid along with Xanax 2 mg po tid , has been under the care of , we will continue with Lamotrigine and Seroquel as well. 11. Allergic rhinitis. we will continue with Montelukast 10 mg po qhs. 12. DVT prophylaxis. we will continue with Eliquis 5 mg po bid. 13. GI prophylaxis. we will continue with PPI and Famotidine. 14. Full code. 15. Observation Past Medical History Past Medical History: Atrial Fibrillation, Asthma, Cancer, Heart Failure, COPD, Dementia, Deep Vein Thrombosis (DVT), Fibromyalgia, GERD/Reflux, GI Bleed, Hyperlipidemia, Memory Impairment, Myocardial Infarction ([place]), Osteoarthritis (OA), Pneumonia, Pulmonary Embolus (PE), Sleep Apnea/CPAP/BIPAP Additional Past Medical History / Comment(s): had pneumonia fall 2020, skin cancer with removals, pt states she had a [place] in 2015, hypotension, dem entia/memory issues d/t of daughter, esophageal strictures w/ballooning, diverticular disease, anemia, RLS, kidney stones, sinus problems, LORIE-not using CPAP, fx. ribs & was adm. & found to have bad gallbladder, hx. of lung nodules- had lavage, PE's & DVT-unsure of cause, takes metoprolol for a-fib, fell and fx. right wrist-has half cast/splint Last Myocardial Infarction Date:: 2015 History of Any Multi-Drug Resistant Organisms: None Reported Past Surgical History: Adenoidectomy, Appendectomy, Bariatric Surgery, Breast Surgery, Cholecystectomy, Hernia Repair, Hysterectomy, Joint Replacement, Tonsillectomy Additional Past Surgical History / Comment(s): R breast bx. x2, 3 umbilical hernia repairs, lithotripsies, gastric bypass, L chao benign tumor, multiple skin bx/skin cancer removals, EGD/dilations and colonoscopies. rt hip replacement Past Anesthesia/Blood Transfusion Reactions: Previous Problems w/ Anesthesia Additional Past Anesthesia/Blood Transfusion Reaction / Comment(s): bp dips low, tends to bleed alot w/surgeries, no problems w/blood transfusions Past Psychological History: Anxiety, Depression Smoking Status: Never smoker Past Alcohol Use History: None Reported Past Drug Use History: None Reported - Past Family History Brother(s) Family Medical History: Cancer Additional Family Medical History / Comment(s): Psychiatric history also runs in the patient's family. The patient's daughter has committed suicide. The patient's brother and sister and mother all of cancers. Apparently rest cancer and esophageal cancer and pancreatic cancer runs in family unable to give detailed history on that. Sister(s) Family Medical History: Cancer Father Family Medical History: Cancer Additional Family Medical History / Comment(s): Father had lung cancer. Mother Family Medical History: Cancer Additional Family Medical History / Comment(s): Mother had pancreatic cancer. Medications and Allergies Home Medications Medication Instructions Recorded Confirmed Type ALPRAZolam [Xanax] 2 mg PO TID 12/14/13 02/19/23 History FLUoxetine HCL [PROzac] 40 mg PO BID 12/14/13 02/19/23 History QUEtiapine [SEROquel] 100 mg PO HS 01/04/16 02/19/23 History Fluticasone/Vilanterol [Breo 1 puff INHALATION RT-DAILY 05/15/18 02/19/23 History Ellipta 200-25 Mcg Inhaler] Apixaban [Eliquis] 5 mg PO BID 30 Days #60 tab 02/05/19 02/19/23 Rx Albuterol Sulfate [Ventolin HFA] 2 puff INHALATION RT-Q6H PRN 12/09/19 02/19/23 History Atorvastatin [Lipitor] 10 mg PO DAILY 12/09/19 02/19/23 History Cholecalciferol [Vitamin D3 (25 100 mcg PO BID 12/10/20 02/19/23 History Mcg = 1000 Iu)] Omeprazole 20 mg PO AC-BID 12/10/20 02/19/23 History lamoTRIgine [LaMICtal] 50 mg PO W/SUPPER 12/10/20 02/19/23 History Famotidine 20 mg PO BID 10/06/21 02/19/23 History Metoprolol Succinate (ER) [Toprol 50 mg PO DAILY 11/19/21 02/19/23 History XL] Montelukast [Singulair] 10 mg PO HS 11/19/21 02/19/23 History Ondansetron Odt [Zofran ODT] 4 mg PO Q8H PRN 11/19/21 02/19/23 History Calcium Carbonate [Calcium] 600 mg PO BID 08/03/22 02/19/23 History Aspirin 81 mg PO DAILY tab 08/04/22 02/19/23 Rx QUEtiapine [SEROquel] 50 mg PO W/SUPPER 08/13/22 02/19/23 History Dextroamphetamine/Amphetamine 20 mg PO BID@0800,1500 10/27/22 02/19/23 History [Adderall] HYDROcodone/APAP 5-325MG [Acampo 1 tab PO BID PRN 10/27/22 02/19/23 History 5-325] Isosorbide Mononitrate ER [Imdur] 30 mg PO HS 10/27/22 02/19/23 History QUEtiapine [SEROquel] 25 mg PO DAILY PRN 10/27/22 02/19/23 History Meclizine [Antivert] 25 mg PO BID PRN tab 10/30/22 02/19/23 Rx Nitroglycerin Sl Tabs [Nitrostat] 0.4 mg SL Q5M PRN 12/24/22 02/19/23 History Allergies Allergy/AdvReac Type Severity Reaction Status Date / Time adhesive tape AdvReac Skin Verified 02/19/23 17:04 Tearing Physical Exam Vitals: Vital Signs Temp Pulse Pulse Resp BP BP BP 02/19/23 17:13 68 17 99/64 02/19/23 16:38 70 18 105/76 02/19/23 15:13 98.3 F 62 17 107/75 02/19/23 14:00 64 19 107/70 02/19/23 13:45 98.3 F 80 18 96/63 02/19/23 12:55 72 02/19/23 12:51 89 18 113/82 02/19/23 12:49 79 16 117/87 02/19/23 12:47 68 16 02/19/23 11:55 98.2 F 88 18 141/80 BP Pulse Ox 02/19/23 17:13 98 02/19/23 16:38 100 02/19/23 15:13 100 02/19/23 14:00 99 02/19/23 13:45 99 02/19/23 12:55 02/19/23 12:51 98 02/19/23 12:49 98 02/19/23 12:47 110/73 99 02/19/23 11:55 97 Intake and Output 02/19/23 02/19/23 02/19/23 06:59 14:59 22:59 Other: Weight 86.183 kg Results CBC & Chem 7: 02/20/23 06:19 02/20/23 06:19 Labs: Abnormal Lab Results - Last 24 Hours (Table) 02/19/23 02/19/23 02/19/23 Range/Units 12:42 12:42 12:42 RBC 3.77 L (3.80-5.40) m/uL Chloride 108 H (98-107) mmol/L BUN 19 H (7-17) mg/dL Urine Appearance Cloudy H (Clear) Urine Protein 1+ H (Negative) Urine Ketones Trace H (Negative) Urine Blood Moderate H (Negative) Urine Bilirubin 1+ H (Negative) Ur Leukocyte Esterase Small H (Negative) Urine RBC 160 H (0-5) /hpf Urine WBC 6 H (0-5) /hpf Hyaline Casts 15 H (0-2) /lpf Urine Mucus Many H (None) /hpf
[2023-02-20] MEDS: QUEtiapine 100 MG TAB PO SCH (20:50)
[2023-02-20] MEDS: MONTELUKAST 10 MG TAB PO SCH (20:50)
[2023-02-20] MEDS: ISOSORBIDE MONONITRATE ER 30 MG TAB.ER.24H PO SCH (20:51)
[2023-02-21] MEDS: PANTOPRAZOLE 40 MG TABLET PO SCH ×2 (05:53→16:11)
[2023-02-21] MEDS: CALCIUM CARB-VIT D 500 MG-5 MCG TAB PO SCH ×2 (09:12→20:33)
[2023-02-21] MEDS: ATORVASTATIN 10 MG TAB PO SCH (09:13)
[2023-02-21] MEDS: FAMOTIDINE 20 MG TAB PO SCH ×2 (09:13→20:33)
[2023-02-21] MEDS: APIXABAN 5 MG TAB PO SCH ×2 (09:13→20:33)
[2023-02-21] MEDS: ASPIRIN 81 MG PO SCH (09:13)
[2023-02-21] MEDS: FLUoxetine HCL 20 MG CAP PO SCH ×2 (09:13→20:33)
[2023-02-21] MEDS: METOPROLOL SUCCINATE (ER) 25 MG TAB.ER.24H PO SCH (09:13)
[2023-02-21] MEDS: CHOLECALCIFEROL 25 MCG (1000 IU) TABLET PO SCH ×2 (09:13→20:33)
--- NOTE | 2023-02-21 09:25 | P.PN ---
Subjective HISTORY OF PRESENT ILLNESS: This is a 67-year-old female with a past medical history significant for atrial fibrillation, fibromyalgia, hypertension, hyperlipidemia, and DVT. Patient follows in the office with Dr. Martinez. We have been asked to see the patient in consultation for chest pain. Patient examined at the bedside. Patient states yesterday morning when she woke up she was feeling lightheaded and short of breath. She states that she went to sit on the sofa to relax. She reports taking her morning medications and then states that she started to see stars. She reports that she began to get pain in the middle of her chest in her epigastric region. She also states that she has been going in and out of A. fib a lot at home recently. * EKG reveals sinus mechanism with PACs * Chest xray negative for acute process * Laboratory data: WBC 5.3. Hemoglobin 11.8. Platelet count 213. Sodium 137. Potassium 4.3. BUN 19. Creatinine 0.83. Magnesium 2.0. Troponin negative 3. * Current home cardiac medications include Eliquis 5 mg twice a day, aspirin 81 mg daily, Lipitor 10 mg daily, Imdur 30 mg at night, metoprolol succinate 50 mg daily * Most recent echocardiogram obtained in July 2022 revealed normal LV systolic function with mild mitral regurgitation * Patient underwent Lexiscan stress test in July 2022 which was negative for ischemia 02/21/2023 Patient examined this morning at the bedside. Patient denies SOB. She reports having an episode of chest pain last night. She states that she took her own nitro from her purse with relief of about 60% of her symptoms. She reports having pain again this morning. EKG was completed which was nonischemic. Telemetry reveals sinus mechanism. Echocardiogram completed revealing ejection fraction 55-60% with no wall motion abnormalities noted. PHYSICAL EXAM: VITAL SIGNS: Reviewed. GENERAL: Well-developed in no acute distress. HEENT: Head is normocephalic. Pupils are equal, round. Sclerae anicteric. Mucous membranes of the mouth are moist. Neck supple. No JVD or thyromegaly LUNGS: Respirations even and unlabored. Lungs essentially clear to auscultation bilaterally. HEART: Regular rate and rhythm. S1 and S2 heard. ABDOMEN: Soft. Nondistended. Nontender. EXTREMITIES: Normal range of motion. No clubbing or cyanosis. Peripheral pulses intact. No lower extremity edema NEUROLOGIC: Awake and alert. Oriented x 3. ASSESSMENT: Chest pain, troponins negative 3 Palpitations Paroxysmal atrial fibrillation Hypertension Hyperlipidemia History of DVT Fibromyalgia PLAN: Continue current cardiac medications Patient received event monitor yesterday Patient is stable for discharge home today from a cardiac standpoint She is to follow up on an outpatient basis We will sign off. Please reconsult if needed. Nurse practitioner note has been reviewed by physician. Signing provider agrees with the documented findings, assessment, and plan of care. Objective - Vital Signs Vital signs: Vital Signs Temp 98.4 F 02/21/23 07:20 Pulse 75 02/21/23 07:45 Resp 18 02/21/23 07:20 BP 108/72 02/21/23 07:45 Pulse Ox 98 02/21/23 07:20 FiO2 Intake & Output 02/20/23 02/21/23 02/21/23 18:59 06:59 18:59 Intake Total 240 Balance 240 Weight 86.183 kg Intake: Oral 240 Other: Voiding Method Toilet Toilet # Voids 1 1 - Labs CBC & Chem 7: 02/20/23 06:19 02/20/23 06:19 Labs: Abnormal Lab Results - Last 24 Hours (Table) 02/20/23 02/20/23 Range/Units 06:19 06:19 WBC 3.71 L (4.50-10.00) X 10*3/uL RBC 3.19 L (4.10-5.20) X 10*6/uL Hgb 9.8 L (12.0-15.0) d/dL Hct 32.3 L (37.2-46.3) % MCV 101.3 H (80.0-97.0) FL MCHC 30.3 L (32.0-37.0) d/dL Chloride 110 H (96-109) mmol/L BUN/Creatinine Ratio 20.38 H (12.00-20.00) Ratio Calcium 8.2 L (8.7-10.3) mg/dL
[2023-02-21 09:29] LABS: ALT 12 U/L (8-44); AST 18 U/L (13-35); Albumin 3.3 d/dL (3.8-4.9); Albumin/Globulin Ratio 1.94 Ratio (1.60-3.17); Alkaline Phosphatase 79 U/L (41-126); Blood Urea Nitrogen 12.8 mg/dL (9.0-27.0); Calcium 8.6 mg/dL (8.7-10.3); Carbon Dioxide 26.8 mmol/L (21.6-31.8); Chloride 109 mmol/L (96-109); Globulin 1.7 d/dL (1.6-3.3); Glucose 96 mg/dL (70-110); Potassium 4.7 mmol/L (3.5-5.5); Sodium 143 mmol/L (135-145); Total Bilirubin 0.3 mg/dL (0.3-1.2)
[2023-02-21] MEDS: ALPRAZolam 1 MG TAB PO SCH ×3 (09:59→20:32)
[2023-02-21] MEDS: SYMBICORT 160-4.5 MCG INHALER INHALATION SCH ×2 (10:05→20:50)
[2023-02-21 13:41] LABS: Basophils # (A) 0.02 X 10*3/uL (0.00-0.10); Basophils % (A) 0.5 %; Eosinophils # (A) 0.11 X 10*3/uL (0.04-0.35); Eosinophils % (A) 2.7 %; HCT 32.7 % (37.2-46.3); HGB 10.1 d/dL (12.0-15.0); Lymphocytes # (A) 1.38 X 10*3/uL (0.90-5.00); Lymphocytes % (A) 34.1 %; MCH 30.8 pg (27.0-32.0); MCHC 30.9 d/dL (32.0-37.0); MCV 99.7 FL (80.0-97.0); Mean Platelet Volume 11.5 FL (9.5-12.2); Monocytes # (A) 0.45 X 10*3/uL (0.20-1.00); Monocytes % (A) 11.1 %; NRBC Per 100 WBC 0 X 10*3/uL (0.00-0.01); Neutrophils # (A) 2.08 X 10*3/uL (1.80-7.70); Neutrophils % (A) 51.4 %; Platelet Count 208 X 10*3/uL (140-440); RBC 3.28 X 10*6/uL (4.10-5.20); RDW 13.2 % (11.5-14.5); WBC 4.05 X 10*3/uL (4.50-10.00)
--- NOTE | 2023-02-21 14:05 | P.DS ---
Providers Date of admission: 02/19/23 14:05 Expected date of discharge: 02/23/23 Attending physician: Dirk Menon Consults: 02/19/23 14:04 Consult Physician Routine Consulting Provider: [facility] Consult Reason/Comments: chest pain Do you want consulting provider notified?: Yes Primary care physician: Dirk Menon Hospital Course: HISTORY OF PRESENT ILLNESS This is a 67-year-old female patient with past medical history of paroxysmal atrial fibrillation on eliquis, hypertension, hyperlipidemia, COPD, gastroesophageal reflux disease, esophageal strictures with ballooning, obstructive sleep apnea not utilizing CPAP, kidney stones, restless leg syndrome, DVT and pulmonary embolism. Patient presented to the emergency department at [facility] because of increased palpitation associated with generalized fatigue and shortness of breath, patient had contacted my office and stated that her heart rate is around 135, and she appeared to be somewhat short of breath, as he lightheaded, she was rectal to go to the ER at [facility], she was found to be somewhat hypotensive, also she did complain of chest pain associated with dizzy spell, and she stated that she was not feeling well, EKG showed baseline normal sinus rhythm with premature PAC, cardiac enzymes are negative, but because of the present issues with the [facility] for evaluation by cardiology. Patient has been following up with Dr. Martinez on a regular basis, 02/20: Patient is seen today in follow-up. She has been evaluated by cardiology with plan for 30 day event monitor and follow up in the office in 5-6 weeks. Echocardiogram reveals normal LV systolic function, biatrial enlargement. Orthostatic vital signs were negative. Heart rate is running in the 70s, blood pressure 95/60. Repeat blood work reveals WBC 3.7, hemoglobin 9.8, platelet count 216. Sodium 144, potassium 4.4. Troponins were negative 3 draws. Plan to monitor patient overnight and discharged home tomorrow. 02/21: Patient was prepared for discharge home however her blood pressure was 87/50 to repeat 99/66 and patient was feeling dizzy and lightheaded. Patient had no arrhythmia on telemetry. Heart rate in the 70s. Repeat blood work reveals WBC 4.0, hemoglobin 10.1, platelet count 208. Electrolytes and renal function were within normal limits. We will plan to monitor her overnight and discharged tomorrow morning. 02/22: Yesterday, patient developed shortness of breath or chest x-ray was done that showed possible atelectasis or pneumonia. This morning, we'll add in Zosyn, Legionella, sputum culture, consult with Dr. Gar. Orthostatic vital signs done this morning are negative. The pressure this morning 121/82, heart rate in the 70s and 80s, pulse ox 97% on room air. Afebrile. 02/23: Patient has been seen by pulmonary medicine and believe there is no active infection with the Propulsid total and of 0.04 and recommending discontinuing antibiotics. Pulmonary is following on an as-needed basis only. Cardiology has signed off. REVIEW OF SYSTEMS Constitutional: No fever, no chills, no night sweats. No weight change. No weakness, fatigue or lethargy. No daytime sleepiness. HEENT: No headache. No blurred vision or double vision, no loss of vision. No loss of Hearing, no ringing in the ears, no dizziness. No nasal drainage or congestion. No epistaxis. No sore throat. Lungs: positive for shortness of breath, no cough, no sputum production. No wheezing. Cardiovascular: Reported chest pain, no lower extremity edema. No palpitations. No paroxysmal nocturnal dyspnea. No orthopnea. No lightheadedness or dizziness. positive for dyspnea on exertion Abdominal: No abdominal pain. No nausea, vomiting. No diarrhea. No constipation. No bloody or tarry stools. No loss of appetite. Genitourinary: No dysuria, increased frequency, urgency. No urinary retention. Musculoskeletal: No myalgias. No muscle weakness, no gait dysfunction, no frequent falls. positive for back pain. No neck pain. Integumentary: No wounds, no lesions. No rash or pruritus. No unusual bruising. Neurologic: No aphasia. No facial droop. No change in mentation. positive for head injury. No headache. No paralysis. No paresthesia, positive for vertigo Psychiatric: positive for depression and anxiety. No mood swings. Endocrine: No abnormal blood sugars. No weight change. No excessive sweating or thirst. PHYSICAL EXAMINATION Gen: This is a 67-year-old female. She is resting in bed and appears to be comfortable and in no acute distress. HEENT: Head is atraumatic, normocephalic. Pupils equal, round. Sclerae is anicteric. NECK: Supple. No JVD. No lymphadenopathy. No thyromegaly. LUNGS: Clear to auscultation. No wheezes or rhonchi. No intercostal retractions. HEART: first heart sound is depressed, second heart sound is normal, there is systolic ejection murmur 2/6 located in the left sternal border. ABDOMEN: Soft. Bowel sounds are present, soft, nontender, nondistended, positive bowel sounds no hepatosplenomegaly EXTREMITIES: No pedal edema. No calf tenderness. Dorsalis pedis +2 bilaterally. NEUROLOGICAL: Patient is awake, alert and oriented x3. Cranial nerves 2 through 12 are grossly intact. cranial nerves III-12 appear grossly intact, muscle power 4 out of 5 in upper and lower extremities bilaterally. ASSESSMENT AND PLAN 1. Chest pain, acute coronary syndrome ruled out. 30 day event monitor last one was done about 3 years ago . Cardiology consult appreciated. 2. Transient hypotension likely the reason for her fatigue and dizzy spells. Patient did receive 1 L of normal saline in the emergency department, the blood pressure continues to be on the soft side, we will continue to monitor the patient requested, patient metoprolol was decreased and changed to bedtime only. Orthostatic vital signs have been negative. 3. Possible pneumonia versus atelectasis. Patient started on IV Zosyn, consult with Dr. Gar, Legionella antigen, sputum culture. 4. hypertension and hypertensive cardiovascular disease. Continue patient on metoprolol ER 12.5 mg at bedtime. 5. Paroxysmal atrial fibrillation, currently in a sinus rhythm, continue patient on metoprolol ER 12.5 mg at bedtime, continue with Eliquis 5 mg po bid 6. Gastroesophageal reflux disease.we will continue with Omeprazole 20 mg po bid along with Famotidine 20 mg po bid 7. Hyperlipidemia. 8. History of pulmonary embolism and DVT. 9. Obstructive sleep apnea. 10. COPD. 11. Anxiety disoder. 12. Allergic rhinitis. Greater than 35 minutes was utilized and coordinating patient's discharge. Impression and plan of care have been directed as dictated by the signing physician. Sita Peralta nurse practitioner acting as scribe for signing physician. Patient Condition at Discharge: Stable Plan - Discharge Summary New Discharge Prescriptions: New Metoprolol Succinate (ER) [Toprol XL] 12.5 mg PO HS #30 tab Continue FLUoxetine HCL [PROzac] 40 mg PO BID ALPRAZolam [Xanax] 2 mg PO TID QUEtiapine [SEROquel] 100 mg PO HS Fluticasone/Vilanterol [Breo Ellipta 200-25 Mcg Inhaler] 1 puff INHALATION RT-DAILY Apixaban [Eliquis] 5 mg PO BID 30 Days #60 tab Atorvastatin [Lipitor] 10 mg PO DAILY Albuterol Sulfate [Ventolin HFA] 2 puff INHALATION RT-Q6H PRN PRN Reason: Shortness Of Breath Cholecalciferol [Vitamin D3 (25 Mcg = 1000 Iu)] 100 mcg PO BID Omeprazole 20 mg PO AC-BID lamoTRIgine [LaMICtal] 50 mg PO W/SUPPER Aspirin 81 mg PO DAILY tab QUEtiapine [SEROquel] 50 mg PO W/SUPPER Dextroamphetamine/Amphetamine [Adderall] 20 mg PO BID@0800,1500 QUEtiapine [SEROquel] 25 mg PO DAILY PRN PRN Reason: Anxiety Meclizine [Antivert] 25 mg PO BID PRN tab PRN Reason: Vertigo Famotidine 20 mg PO BID Montelukast [Singulair] 10 mg PO HS Ondansetron Odt [Zofran ODT] 4 mg PO Q8H PRN PRN Reason: Nausea Calcium Carbonate [Calcium] 600 mg PO BID HYDROcodone/APAP 5-325MG [[place] 5-325] 1 tab PO BID PRN PRN Reason: Pain Isosorbide Mononitrate ER [Imdur] 30 mg PO HS Nitroglycerin Sl Tabs [Nitrostat] 0.4 mg SL Q5M PRN PRN Reason: Chest Pain Discontinued Metoprolol Succinate (ER) [Toprol XL] 50 mg PO DAILY Discharge Medication List ALPRAZolam [Xanax] 2 mg PO TID 12/14/13 [History] FLUoxetine HCL [PROzac] 40 mg PO BID 12/14/13 [History] QUEtiapine [SEROquel] 100 mg PO HS 01/04/16 [History] Fluticasone/Vilanterol [Breo Ellipta 200-25 Mcg Inhaler] 1 puff INHALATION RT- DAILY 05/15/18 [History] Apixaban [Eliquis] 5 mg PO BID 30 Days #60 tab 02/05/19 [Rx] Albuterol Sulfate [Ventolin HFA] 2 puff INHALATION RT-Q6H PRN 12/09/19 [History] Atorvastatin [Lipitor] 10 mg PO DAILY 12/09/19 [History] Cholecalciferol [Vitamin D3 (25 Mcg = 1000 Iu)] 100 mcg PO BID 12/10/20 [History] Omeprazole 20 mg PO AC-BID 12/10/20 [History] lamoTRIgine [LaMICtal] 50 mg PO W/SUPPER 12/10/20 [History] Famotidine 20 mg PO BID 10/06/21 [History] Montelukast [Singulair] 10 mg PO HS 11/19/21 [History] Ondansetron Odt [Zofran ODT] 4 mg PO Q8H PRN 11/19/21 [History] Calcium Carbonate [Calcium] 600 mg PO BID 08/03/22 [History] Aspirin 81 mg PO DAILY tab 08/04/22 [Rx] QUEtiapine [SEROquel] 50 mg PO W/SUPPER 08/13/22 [History] Dextroamphetamine/Amphetamine [Adderall] 20 mg PO BID@0800,1500 10/27/22 [History] HYDROcodone/APAP 5-325MG [[place] 5-325] 1 tab PO BID PRN 10/27/22 [History] Isosorbide Mononitrate ER [Imdur] 30 mg PO HS 10/27/22 [History] QUEtiapine [SEROquel] 25 mg PO DAILY PRN 10/27/22 [History] Meclizine [Antivert] 25 mg PO BID PRN tab 10/30/22 [Rx] Nitroglycerin Sl Tabs [Nitrostat] 0.4 mg SL Q5M PRN 12/24/22 [History] Metoprolol Succinate (ER) [Toprol XL] 12.5 mg PO HS #30 tab 02/23/23 [Rx] Follow up Appointment(s)/Referral(s): Dirk Menon MD [Primary Care Provider] - 1 Week John Martinez MD [STAFF PHYSICIAN] - 1 Week Delon Gar DO [Doctor of Osteopathic Medicine] - 1 Week Discharge Disposition: HOME SELF-CARE
--- NOTE | 2023-02-21 16:02 | P.PN ---
Subjective Progress Note Date: 02/21/23 HISTORY OF PRESENT ILLNESS This is a 67-year-old female patient with past medical history of paroxysmal atrial fibrillation on eliquis, hypertension, hyperlipidemia, COPD, gastroes ophageal reflux disease, esophageal strictures with ballooning, obstructive sleep apnea not utilizing CPAP, kidney stones, restless leg syndrome, DVT and pulmonary embolism. Patient presented to the emergency department at [facility] because of increased palpitation associated with generalized fatigue and shortness of breath, patient had contacted my office and stated that her heart rate is around 135, and she appeared to be somewhat short of breath, as he lightheaded, she was rectal to go to the ER at [facility], she was found to be somewhat hypotensive, also she did complain of chest pain associated with dizzy spell, and she stated that she was not feeling well, EKG showed baseline normal sinus rhythm with premature PAC, cardiac enzymes are negative, but because of the present issues with the hospital for evaluation by cardiology. Patient has been following up with Dr. Martinez on a regular basis, 02/20: Patient is seen today in follow-up. She has been evaluated by cardiology with plan for 30 day event monitor and follow up in the office in 5-6 weeks. Echocardiogram reveals normal LV systolic function, biatrial enlargement. Orthostatic vital signs were negative. Heart rate is running in the 70s, blood pressure 95/60. Repeat blood work reveals WBC 3.7, hemoglobin 9.8, platelet count 216. Sodium 144, potassium 4.4. Troponins were negative 3 draws. Plan to monitor patient overnight and discharged home tomorrow. 02/21: Patient was prepared for discharge home however her blood pressure was 87/50 to repeat 99/66 and patient was feeling dizzy and lightheaded. Patient had no arrhythmia on telemetry. Heart rate in the 70s. Repeat blood work reveals WBC 4.0, hemoglobin 10.1, platelet count 208. Electrolytes and renal function were within normal limits. We will plan to monitor her overnight and discharged tomorrow morning. REVIEW OF SYSTEMS Constitutional: No fever, no chills, no night sweats. No weight change. No w eakness, fatigue or lethargy. No daytime sleepiness. HEENT: No headache. No blurred vision or double vision, no loss of vision. No loss of Hearing, no ringing in the ears, no dizziness. No nasal drainage or congestion. No epistaxis. No sore throat. Lungs: positive for shortness of breath, no cough, no sputum production. No wheezing. Cardiovascular: Reported chest pain, no lower extremity edema. No palpitations. No paroxysmal nocturnal dyspnea. No orthopnea. No lightheadedness or dizzi ness. positive for dyspnea on exertion Abdominal: No abdominal pain. No nausea, vomiting. No diarrhea. No constipation. No bloody or tarry stools. No loss of appetite. Genitourinary: No dysuria, increased frequency, urgency. No urinary retention. Musculoskeletal: No myalgias. No muscle weakness, no gait dysfunction, no frequent falls. positive for back pain. No neck pain. Integumentary: No wounds, no lesions. No rash or pruritus. No unusual bruising. Neurologic: No aphasia. No facial droop. No change in mentation. positive for head injury. No headache. No paralysis. No paresthesia, positive for vertigo Psychiatric: positive for depression and anxiety. No mood swings. Endocrine: No abnormal blood sugars. No weight change. No excessive sweating or thirst. PHYSICAL EXAMINATION Gen: This is a 67-year-old female. She is resting in bed and appears to be comfortable and in no acute distress. HEENT: Head is atraumatic, normocephalic. Pupils equal, round. Sclerae is anicteric. NECK: Supple. No JVD. No lymphadenopathy. No thyromegaly. LUNGS: Clear to auscultation. No wheezes or rhonchi. No intercostal retractions. HEART: first heart sound is depressed, second heart sound is normal, there is systolic ejection murmur 2/6 located in the left sternal border. ABDOMEN: Soft. Bowel sounds are present, soft, nontender, nondistended, positive bowel sounds no hepatosplenomegaly EXTREMITIES: No pedal edema. No calf tenderness. Dorsalis pedis +2 bilaterally. NEUROLOGICAL: Patient is awake, alert and oriented x3. Cranial nerves 2 through 12 are grossly intact. cranial nerves III-12 appear grossly intact, muscle power 4 out of 5 in upper and lower extremities bilaterally. ASSESSMENT AND PLAN 1. Chest pain. Patient's 12-lead EKG showed evidence of normal sinus rhythm with PACs, no evidence of acute ischemic changes, patient not in atrial fibrillation at this time, 10 units telemetry, 30 day event monitor last one was done about 3 years ago . Cardiology consult appreciated. 2. Transient hypotension likely the reason for her fatigue and dizzy spells. Patient did receive 1 L of normal saline in the emergency department, the blood pressure continues to be on the soft side, we will continue to monitor the patient requested, patient metoprolol was decreased as well as we'll hold for systolic blood pressures in the 100. 3. hypertension and hypertensive cardiovascular disease. Continue patient on metoprolol ER 25 mg orally once every day. 4. Paroxysmal atrial fibrillation, currently in a sinus rhythm, continue patient on metoprolol ER 25 mg orally once every day, we will continue with Eliquis 5 mg po bid 5. Gastroesophageal reflux disease.we will continue with Omeprazole 20 mg po bid along with Famotidine 20 mg po bid 6. Hyperlipidemia.we will continue with low cholesterol diet and exercise and weight loss, we will continue with Atorvastatin 20 mg po daily, keep LDL-c 55-70 7. History of pulmonary embolism and DVT. we will continue with Eliquis 5 mg po bid for life. 8. Obstructive sleep apnea. weght loss, not using her CPAP 9. COPD. we will continue with current Albuterol HFA 2 puffs inhalaton q4 h as needed along with controller inhaler in the form of Breo Ellipta daily 10. Anxiety disoder. we will continue with Prozac 40 mg po bid along with Xanax 2 mg po tid , has been under the care of , we will continue with Lamotrigine and Seroquel as well. 11. Allergic rhinitis. we will continue with Montelukast 10 mg po qhs. 12. DVT prophylaxis. we will continue with Eliquis 5 mg po bid. 13. GI prophylaxis. we will continue with PPI and Famotidine. 14. Full code. 15. Observation, home in the morning Impression and plan of care have been directed as dictated by the signing physician. Sita Peralta nurse practitioner acting as scribe for signing physician. Objective - Vital Signs Vital signs: Vital Signs Temp 98.5 F 02/21/23 14:05 Pulse 75 02/21/23 14:05 Resp 18 02/21/23 14:05 BP 99/66 02/21/23 14:48 Pulse Ox 97 02/21/23 14:05 FiO2 Intake & Output 02/20/23 02/21/23 02/21/23 18:59 06:59 18:59 Intake Total 240 240 Balance 240 240 Weight 86.183 kg Intake: Oral 240 240 Other: Voiding Method Toilet Toilet Toilet # Voids 1 1 3 - Labs CBC & Chem 7: 02/21/23 05:51 02/21/23 05:51 Labs: Abnormal Lab Results - Last 24 Hours (Table) 02/21/23 02/21/23 Range/Units 05:51 05:51 WBC 4.05 L (4.50-10.00) X 10*3/uL RBC 3.28 L (4.10-5.20) X 10*6/uL Hgb 10.1 L (12.0-15.0) d/dL Hct 32.7 L (37.2-46.3) % MCV 99.7 H (80.0-97.0) FL MCHC 30.9 L (32.0-37.0) d/dL Calcium 8.6 L (8.7-10.3) mg/dL Total Protein 5.0 L (6.2-8.2) d/dL Albumin 3.3 L (3.8-4.9) d/dL
[2023-02-21] MEDS: QUEtiapine 50 MG TAB PO SCH (16:11)
[2023-02-21] MEDS: lamoTRIgine 25 MG TAB PO SCH (16:11)
[2023-02-21] MEDS: ISOSORBIDE MONONITRATE ER 30 MG TAB.ER.24H PO SCH (20:32)
[2023-02-21] MEDS: QUEtiapine 100 MG TAB PO SCH (20:32)
[2023-02-21] MEDS: MONTELUKAST 10 MG TAB PO SCH (20:33)
--- NOTE | 2023-02-21 21:39 | XR ---
EXAMINATION TYPE: XR chest 1V portable DATE OF EXAM: 02/21/2023 COMPARISON: 02/19/2023 INDICATION: Short of breath TECHNIQUE: Single frontal view of the chest is obtained. FINDINGS: The heart size is normal. The pulmonary vasculature is normal. There may be some developing infiltrate in the right lower lobe. Retrocardiac infiltrate may be devel oping. Correlate for atelectasis or pneumonia. Electronic device overlies left chest. IMPRESSION: 1. Developing mild posterior medial lower lobe infiltrates. Correlate for atelectasis and pneumonia. Follow up exams can be performed.
[2023-02-22] MEDS: PANTOPRAZOLE 40 MG TABLET PO SCH ×2 (06:03→16:53)
[2023-02-22 07:22] VITALS: RESP 16
[2023-02-22] MEDS: APIXABAN 5 MG TAB PO SCH ×2 (08:36→20:22)
[2023-02-22] MEDS: CHOLECALCIFEROL 25 MCG (1000 IU) TABLET PO SCH ×2 (08:36→20:23)
[2023-02-22] MEDS: ATORVASTATIN 10 MG TAB PO SCH (08:36)
[2023-02-22] MEDS: ALPRAZolam 1 MG TAB PO SCH ×4 (08:36→20:23)
[2023-02-22] MEDS: ASPIRIN 81 MG PO SCH (08:39)
[2023-02-22] MEDS: METOPROLOL SUCCINATE (ER) 25 MG TAB.ER.24H PO SCH (08:44)
[2023-02-22] MEDS: SYMBICORT 160-4.5 MCG INHALER INHALATION SCH ×2 (08:47→19:33)
[2023-02-22] MEDS: FLUoxetine HCL 20 MG CAP PO SCH ×2 (09:00→20:23)
[2023-02-22] MEDS: CALCIUM CARB-VIT D 500 MG-5 MCG TAB PO SCH ×2 (09:00→20:23)
[2023-02-22] MEDS: FAMOTIDINE 20 MG TAB PO SCH ×2 (09:00→20:23)
[2023-02-22] MEDS ORDERED: METOPROLOL SUCCINATE (ER) 25 MG TAB.ER.24H PO SCH ×2 (09:00→21:00)
--- NOTE | 2023-02-22 09:04 | P.PN ---
Subjective Progress Note Date: 02/22/23 HISTORY OF PRESENT ILLNESS This is a 67-year-old female patient with past medical history of paroxysmal atrial fibrillation on eliquis, hypertension, hyperlipidemia, COPD, gastroes ophageal reflux disease, esophageal strictures with ballooning, obstructive sleep apnea not utilizing CPAP, kidney stones, restless leg syndrome, DVT and pulmonary embolism. Patient presented to the emergency department at [facility] because of increased palpitation associated with generalized fatigue and shortness of breath, patient had contacted my office and stated that her heart rate is around 135, and she appeared to be somewhat short of breath, as he lightheaded, she was rectal to go to the ER at [facility], she was found to be somewhat hypotensive, also she did complain of chest pain associated with dizzy spell, and she stated that she was not feeling well, EKG showed baseline normal sinus rhythm with premature PAC, cardiac enzymes are negative, but because of the present issues with the hospital for evaluation by cardiology. Patient has been following up with Dr. Martinez on a regular basis, 02/20: Patient is seen today in follow-up. She has been evaluated by cardiology with plan for 30 day event monitor and follow up in the office in 5-6 weeks. Echocardiogram reveals normal LV systolic function, biatrial enlargement. Orthostatic vital signs were negative. Heart rate is running in the 70s, blood pressure 95/60. Repeat blood work reveals WBC 3.7, hemoglobin 9.8, platelet count 216. Sodium 144, potassium 4.4. Troponins were negative 3 draws. Plan to monitor patient overnight and discharged home tomorrow. 02/21: Patient was prepared for discharge home however her blood pressure was 87/50 to repeat 99/66 and patient was feeling dizzy and lightheaded. Patient had no arrhythmia on telemetry. Heart rate in the 70s. Repeat blood work reveals WBC 4.0, hemoglobin 10.1, platelet count 208. Electrolytes and renal function were within normal limits. We will plan to monitor her overnight and discharged tomorrow morning. 02/22: Yesterday, patient developed shortness of breath or chest x-ray was done that showed possible atelectasis or pneumonia. This morning, we'll add in Zosyn, Legionella, sputum culture, consult with Dr. Gar. Orthostatic vital signs done this morning are negative. The pressure this morning 121/82, heart rate in the 70s and 80s, pulse ox 97% on room air. Afebrile. REVIEW OF SYSTEMS Constitutional: No fever, no chills, no night sweats. No weight change. No weakness, fatigue or lethargy. No daytime sleepiness. HEENT: No headache. No blurred vision or double vision, no loss of vision. No loss of Hearing, no ringing in the ears, no dizziness. No nasal drainage or congestion. No epistaxis. No sore throat. Lungs: positive for shortness of breath, no cough, no sputum production. No wheezing. Cardiovascular: Reported chest pain, no lower extremity edema. No palpitations. No paroxysmal nocturnal dyspnea. No orthopnea. No lightheadedness or dizziness. positive for dyspnea on exertion Abdominal: No abdominal pain. No nausea, vomiting. No diarrhea. No constipation. No bloody or tarry stools. No loss of appetite. Genitourinary: No dysuria, increased frequency, urgency. No urinary retention. Musculoskeletal: No myalgias. No muscle weakness, no gait dysfunction, no frequent falls. positive for back pain. No neck pain. Integumentary: No wounds, no lesions. No rash or pruritus. No unusual bruising. Neurologic: No aphasia. No facial droop. No change in mentation. positive for head injury. No headache. No paralysis. No paresthesia, positive for vertigo Psychiatric: positive for depression and anxiety. No mood swings. Endocrine: No abnormal blood sugars. No weight change. No excessive sweating or thirst. PHYSICAL EXAMINATION Gen: This is a 67-year-old female. She is resting in bed and appears to be comfortable and in no acute distress. HEENT: Head is atraumatic, normocephalic. Pupils equal, round. Sclerae is anicteric. NECK: Supple. No JVD. No lymphadenopathy. No thyromegaly. LUNGS: Clear to auscultation. No wheezes or rhonchi. No intercostal retractions. HEART: first heart sound is depressed, second heart sound is normal, there is systolic ejection murmur 2/6 located in the left sternal border. ABDOMEN: Soft. Bowel sounds are present, soft, nontender, nondistended, positive bowel sounds no hepatosplenomegaly EXTREMITIES: No pedal edema. No calf tenderness. Dorsalis pedis +2 bilaterall y. NEUROLOGICAL: Patient is awake, alert and oriented x3. Cranial nerves 2 through 12 are grossly intact. cranial nerves III-12 appear grossly intact, muscle power 4 out of 5 in upper and lower extremities bilaterally. ASSESSMENT AND PLAN 1. Chest pain, acute coronary syndrome ruled out. 30 day event monitor last one was done about 3 years ago . Cardiology consult appreciated. 2. Transient hypotension likely the reason for her fatigue and dizzy spells. Patient did receive 1 L of normal saline in the emergency department, the blood pressure continues to be on the soft side, we will continue to monitor the patient requested, patient metoprolol was decreased and changed to bedtime only. Orthostatic vital signs have been negative. 3. Possible pneumonia versus atelectasis. Patient started on IV Zosyn, consult with Dr. Gar, Legionella antigen, sputum culture. 4. hypertension and hypertensive cardiovascular disease. Continue patient on metoprolol ER 12.5 mg at bedtime. 5. Paroxysmal atrial fibrillation, currently in a sinus rhythm, continue patient on metoprolol ER 12.5 mg at bedtime, continue with Eliquis 5 mg po bid 6. Gastroesophageal reflux disease.we will continue with Omeprazole 20 mg po bid along with Famotidine 20 mg po bid 7. Hyperlipidemia.we will continue with low cholesterol diet and exercise and weight loss, we will continue with Atorvastatin 20 mg po daily, keep LDL-c 55-70 8. History of pulmonary embolism and DVT. we will continue with Eliquis 5 mg po bid for life. 9. Obstructive sleep apnea. weght loss, not using her CPAP 10. COPD. we will continue with current Albuterol HFA 2 puffs inhalaton q4 h as needed along with controller inhaler in the form of Breo Ellipta daily 11. Anxiety disoder. we will continue with Prozac 40 mg po bid along with Xanax 2 mg po tid , has been under the care of , we will continue with Lamotrigine and Seroquel as well. 12. Allergic rhinitis. we will continue with Montelukast 10 mg po qhs. 13. DVT prophylaxis. we will continue with Eliquis 5 mg po bid. 14. GI prophylaxis. we will continue with PPI and Famotidine. 15. Full code. Patient admitted to the hospital as inpatient status, plan for tonight stay. Impression and plan of care have been directed as dictated by the signing physician. Sita Peralta nurse practitioner acting as scribe for signing physician. Objective - Vital Signs Vital signs: Vital Signs Temp 97.9 F 02/22/23 07:00 Pulse 77 02/22/23 08:33 Resp 16 02/22/23 07:00 BP 101/65 02/22/23 08:33 Pulse Ox 97 02/22/23 08:33 FiO2 Intake & Output 02/21/23 02/22/23 02/22/23 18:59 06:59 18:59 Intake Total 240 118 Balance 240 118 Intake: Oral 240 118 Other: Voiding Method Toilet Toilet # Voids 3 1 - Labs CBC & Chem 7: 02/21/23 05:51 02/21/23 05:51 Labs: Abnormal Lab Results - Last 24 Hours (Table) 02/21/23 02/21/23 Range/Units 05:51 05:51 WBC 4.05 L (4.50-10.00) X 10*3/uL RBC 3.28 L (4.10-5.20) X 10*6/uL Hgb 10.1 L (12.0-15.0) d/dL Hct 32.7 L (37.2-46.3) % MCV 99.7 H (80.0-97.0) FL MCHC 30.9 L (32.0-37.0) d/dL Calcium 8.6 L (8.7-10.3) mg/dL Total Protein 5.0 L (6.2-8.2) d/dL Albumin 3.3 L (3.8-4.9) d/dL
[2023-02-22] MEDS: PIPERACILLIN-TAZOBACTAM 3.375 GM in SODIUM CHLORIDE 0.9% 100 ML IVPB SCH ×3 (10:47→23:53)
--- NOTE | 2023-02-22 14:08 | P.CNPUL ---
History of Present Illness Consult date: 02/22/23 Requesting physician: Dirk Menon Reason for consult: dyspnea, cough, pneumonia, abnormal CXR/CT Chief complaint: Shortness of breath, cough, phlegm production. History of present illness: Pulmonary consult dated 02/22/2023. 67-year-old female well-known to me. She does have a history of underlying COPD. The patient was hospitalized back on the of this month, for chest pain and syncope. She apparently has had multiple episodes of either passing out, or having near syncope. Anyway, we are consulted for the possibility of pneumonia. The patient complains of shortness of breath, cough, and occasional phlegm production. Currently, she is taking Symbicort, Singulair, and she is on Zosyn. She's also getting nebulized albuterol. We are only consulted today for possible pneumonia. Her chest x-ray shows either infiltrate, or atelectasis, and the right lower lobe. She does not look particularly toxic. She's on room air. Saturations are 97%. She's not receiving any IV fluids. White count is 4.05, hemoglobin 10.1, hematocrit 32.7, and platelet count is normal. Electrolyte profile is completely normal. Calcium is 8.6. Total protein is 5. Urine might be positive for a urinary tract infection. She's not having any urinary complaints. Her chest x-ray on the day of admission, was interpreted as normal. I believe it to be normal as well. Her more recent chest x-ray dated February 21, she was a potential right lower lobe infiltrate. Review of Systems REVIEW OF SYSTEMS: CONSTITUTIONAL: [Negative.] NEUROLOGIC: Syncope/near syncope. HEENT: [ Negative.] CARDIAC: Chest pain. PULMONARY: Shortness of breath, cough, phlegm production. GI: [Negative.] : [Negative.] RHEUMATOLOGIC: [ Negative.] IMMUNOLOGIC: [ Negative.] ENDOCRINE: [Negative. ] DERMATOLOGIC: [Negative.] Past Medical History Past Medical History: Atrial Fibrillation, Asthma, Cancer, Heart Failure, COPD, Dementia, Deep Vein Thrombosis (DVT), Fibromyalgia, GERD/Reflux, GI Bleed, Hyperlipidemia, Memory Impairment, Myocardial Infarction ([place]), Osteoarthritis (OA), Pneumonia, Pulmonary Embolus (PE), Sleep Apnea/CPAP/BIPAP Additional Past Medical History / Comment(s): had pneumonia fall 2020, skin cancer with removals, pt states she had a [place] in 2016, hypotension, dementia/memory issues d/t of daughter, esophageal strictures w/ballooning, diverticular disease, anemia, RLS, kidney stones, sinus problems, LORIE-not using CPAP, fx. ribs & was adm. & found to have bad gallbladder, hx. of lung nodules-had lavage, PE's & DVT-unsure of cause, takes metoprolol for a-fib, fell and fx. right wrist-has half cast/splint Last Myocardial Infarction Date:: 2015 History of Any Multi-Drug Resistant Organisms: None Reported Past Surgical History: Adenoidectomy, Appendectomy, Bariatric Surgery, Breast Surgery, Cholecystectomy, Hernia Repair, Hysterectomy, Joint Replacement, Tonsillectomy Additional Past Surgical History / Comment(s): R breast bx. x2, 3 umbilical hernia repairs, lithotripsies, gastric bypass, L chao benign tumor, multiple skin bx/skin cancer removals, EGD/dilations and colonoscopies. rt hip replacement Past Anesthesia/Blood Transfusion Reactions: Previous Problems w/ Anesthesia Additional Past Anesthesia/Blood Transfusion Reaction / Comment(s): bp dips low, tends to bleed alot w/surgeries, no problems w/blood transfusions Past Psychological History: Anxiety, Depression Smoking Status: Never smoker Past Alcohol Use History: None Reported Past Drug Use History: None Reported - Past Family History Brother(s) Family Medical History: Cancer Additional Family Medical History / Comment(s): Psychiatric history also runs in the patient's family. The patient's daughter has committed suicide. The patient's brother and sister and mother all of cancers. Apparently rest cancer and esophageal cancer and pancreatic cancer runs in family unable to give detailed history on that. Sister(s) Family Medical History: Cancer Father Family Medical History: Cancer Additional Family Medical History / Comment(s): Father had lung cancer. Mother Family Medical History: Cancer Additional Family Medical History / Comment(s): Mother had pancreatic cancer. Medications and Allergies Home Medications Medication Instructions Recorded Confirmed Type ALPRAZolam [Xanax] 2 mg PO TID 12/14/13 02/19/23 History FLUoxetine HCL [PROzac] 40 mg PO BID 12/14/13 02/19/23 History QUEtiapine [SEROquel] 100 mg PO HS 01/04/16 02/19/23 History Fluticasone/Vilanterol [Breo 1 puff INHALATION RT-DAILY 05/15/18 02/19/23 History Ellipta 200-25 Mcg Inhaler] Apixaban [Eliquis] 5 mg PO BID 30 Days #60 tab 02/05/19 02/19/23 Rx Albuterol Sulfate [Ventolin HFA] 2 puff INHALATION RT-Q6H PRN 12/09/19 02/19/23 History Atorvastatin [Lipitor] 10 mg PO DAILY 12/09/19 02/19/23 History Cholecalciferol [Vitamin D3 (25 100 mcg PO BID 12/10/20 02/19/23 History Mcg = 1000 Iu)] Omeprazole 20 mg PO AC-BID 12/10/20 02/19/23 History lamoTRIgine [LaMICtal] 50 mg PO W/SUPPER 12/10/20 02/19/23 History Famotidine 20 mg PO BID 10/06/21 02/19/23 History Montelukast [Singulair] 10 mg PO HS 11/19/21 02/19/23 History Ondansetron Odt [Zofran ODT] 4 mg PO Q8H PRN 11/19/21 02/19/23 History Calcium Carbonate [Calcium] 600 mg PO BID 08/03/22 02/19/23 History Aspirin 81 mg PO DAILY tab 08/04/22 02/19/23 Rx QUEtiapine [SEROquel] 50 mg PO W/SUPPER 08/13/22 02/19/23 History Dextroamphetamine/Amphetamine 20 mg PO BID@0800,1500 10/27/22 02/19/23 History [Adderall] HYDROcodone/APAP 5-325MG [[place] 1 tab PO BID PRN 10/27/22 02/19/23 History 5-325] Isosorbide Mononitrate ER [Imdur] 30 mg PO HS 10/27/22 02/19/23 History QUEtiapine [SEROquel] 25 mg PO DAILY PRN 10/27/22 02/19/23 History Meclizine [Antivert] 25 mg PO BID PRN tab 10/30/22 02/19/23 Rx Nitroglycerin Sl Tabs [Nitrostat] 0.4 mg SL Q5M PRN 12/24/22 02/19/23 History Metoprolol Succinate (ER) [Toprol 25 mg PO DAILY #0 02/21/23 02/19/23 Rx XL] Allergies Allergy/AdvReac Type Severity Reaction Status Date / Time adhesive tape AdvReac Skin Verified 02/19/23 17:04 Tearing Physical Exam Osteopathic Statement: *. No significant issues noted on an osteopathic structural exam other than those noted in the History and Physical/Consult. Vitals: Vital Signs Temp Pulse Pulse Pulse Pulse Resp BP 02/22/23 08:50 80 02/22/23 08:47 02/22/23 08:33 77 02/22/23 07:00 97.9 F 63 69 60 16 103/71 02/22/23 02:20 97.8 F 63 14 02/21/23 20:10 98 F 77 67 58 L 17 93/62 02/21/23 14:48 02/21/23 14:05 98.5 F 75 18 02/21/23 14:00 75 72 75 51 L 18 BP BP BP Pulse Ox FiO2 02/22/23 08:50 121/82 02/22/23 08:47 97 21 02/22/23 08:33 101/65 97 02/22/23 07:00 104/71 105/72 98 02/22/23 02:20 103/66 96 02/21/23 20:10 95/62 92/60 96 02/21/23 14:48 99/66 02/21/23 14:05 87/52 97 02/21/23 14:00 Intake and Output 02/21/23 02/22/23 02/22/23 22:59 06:59 14:59 Intake Total 118 Balance 118 Intake: Oral 118 Other: Voiding Method Toilet Toilet # Voids 2 1 # Bowel Movements 1 No acute distress, oriented 3. Currently on room air. No conversational dyspnea, use of accessory muscles, or audible wheezing. HEENT examination is grossly unremarkable. Neck supple. Full range of motion. No adenopathy thyromegaly or neck vein distention. Cardiovascular examination reveals regular rhythm rate. S1-S2 normal. No S3 or S4. No discernible murmur noted. Heart rate 80 bpm. Lungs reveal mostly clear breath sounds. Minimal rhonchi. No wheezes. No crackles. Breath sounds equal bilaterally. Room air saturation 97%. Abdomen soft bowel sounds are heard. No masses or tenderness. Extremities are intact. No cyanosis clubbing or edema. Skin is without rash or lesion. Neurologic examination is brief but nonfocal. Results - Laboratory Findings CBC and BMP: 02/21/23 05:51 02/21/23 05:51 PT/INR, D-dimer PT 10.0 sec (9.0-12.0) 02/19/23 12:42 INR 0.9 (<1.2) 02/19/23 12:42 Abnormal lab findings: Abnormal Labs 02/19/23 02/19/23 02/19/23 12:42 12:42 12:42 WBC RBC 3.77 L Hgb Hct MCV MCHC Chloride 108 H BUN 19 H BUN/Creatinine Ratio Calcium Total Protein Albumin Urine Appearance Cloudy H Urine Protein 1+ H Urine Ketones Trace H Urine Blood Moderate H Urine Bilirubin 1+ H Ur Leukocyte Esterase Small H Urine RBC 160 H Urine WBC 6 H Hyaline Casts 15 H Urine Mucus Many H 02/20/23 02/20/23 02/21/23 06:19 06:19 05:51 WBC 3.71 L 4.05 L RBC 3.19 L 3.28 L Hgb 9.8 L 10.1 L Hct 32.3 L 32.7 L MCV 101.3 H 99.7 H MCHC 30.3 L 30.9 L Chloride 110 H BUN BUN/Creatinine Ratio 20.38 H Calcium 8.2 L Total Protein Albumin Urine Appearance Urine Protein Urine Ketones Urine Blood Urine Bilirubin Ur Leukocyte Esterase Urine RBC Urine WBC Hyaline Casts Urine Mucus 02/21/23 05:51 WBC RBC Hgb Hct MCV MCHC Chloride BUN BUN/Creatinine Ratio Calcium 8.6 L Total Protein 5.0 L Albumin 3.3 L Urine Appearance Urine Protein Urine Ketones Urine Blood Urine Bilirubin Ur Leukocyte Esterase Urine RBC Urine WBC Hyaline Casts Urine Mucus - Diagnostic Findings Chest x-ray: image reviewed Assessment and Plan Assessment: Syncope/near syncope, currently being evaluated by the primary service. Asthma/COPD, not particularly active at this time. Questionable pneumonia, right lower lobe, vs. atelectasis. History of atrial fibrillation. History of heart failure. History of DVT. History of gastroesophageal reflux disease. Dyslipidemia. History of myocardial infarction. History of pulmonary embolism. History of sleep apnea syndrome. Multiple other medical problems and comorbidities. Plan: Plan dated 02/22/2023. The patient was admitted to the hospital on February 19, for chest pain and possible syncope. The patient does have a history of underlying COPD/asthma, which does not appear to be active at this time. When questioned, the patient admits to just about every symptom possible, including shortness of breath, cough, phlegm production. The patient's chest x-ray on admission was normal. Follow-up chest x-ray done on February 21, shows either infiltrate or atelectasis in the right lower lobe. The patient is currently on Zosyn. We will check a pro-calcitonin level, and if normal, then antibiotics can be discontinued. Even at the pro-calcitonin level is elevated, the patient's antibiotics can be de- escalated to an oral antibiotic, and the patient can be followed as an outpatient. Time with Patient: Greater than 30
[2023-02-22] MEDS: lamoTRIgine 25 MG TAB PO SCH (16:50)
[2023-02-22] MEDS: QUEtiapine 50 MG TAB PO SCH (16:51)
[2023-02-22] MEDS: MONTELUKAST 10 MG TAB PO SCH (20:23)
[2023-02-22] MEDS: QUEtiapine 100 MG TAB PO SCH (20:23)
[2023-02-22] MEDS: ISOSORBIDE MONONITRATE ER 30 MG TAB.ER.24H PO SCH (20:23)
[2023-02-23] MEDS: PANTOPRAZOLE 40 MG TABLET PO SCH (06:31)
[2023-02-23 07:30] VITALS: BP 108/76; PULSE 78; TEMP 98
[2023-02-23] MEDS: SYMBICORT 160-4.5 MCG INHALER INHALATION SCH (08:38)
[2023-02-23] MEDS: CALCIUM CARB-VIT D 500 MG-5 MCG TAB PO SCH (09:10)
[2023-02-23] MEDS: FLUoxetine HCL 20 MG CAP PO SCH (09:10)
[2023-02-23] MEDS: PIPERACILLIN-TAZOBACTAM 3.375 GM in SODIUM CHLORIDE 0.9% 100 ML IVPB SCH ×2 (09:11→17:23)
[2023-02-23] MEDS: APIXABAN 5 MG TAB PO SCH (09:11)
[2023-02-23] MEDS: FAMOTIDINE 20 MG TAB PO SCH (09:11)
[2023-02-23] MEDS: ATORVASTATIN 10 MG TAB PO SCH (09:11)
[2023-02-23] MEDS: ALPRAZolam 1 MG TAB PO SCH ×2 (09:11→17:23)
[2023-02-23] MEDS: CHOLECALCIFEROL 25 MCG (1000 IU) TABLET PO SCH (09:11)
[2023-02-23] MEDS: ASPIRIN 81 MG PO SCH (09:11)
[2023-02-23] MEDS: HYDROcodone/APAP 5-325MG 1 EACH TAB PO PRN (10:25)
--- NOTE | 2023-02-23 10:49 | P.PN ---
Subjective Progress Note Date: 02/23/23 67-year-old female well-known to me. She does have a history of underlying COPD. The patient was hospitalized back on the of this month, for chest pain and syncope. She apparently has had multiple episodes of either passing out, or having near syncope. Anyway, we are consulted for the possibility of pneumonia. The patient complains of shortness of breath, cough, and occasional phlegm production. Currently, she is taking Symbicort, Singulair, and she is on Zosyn. She's also getting nebulized albuterol. We are only consulted today for possible pneumonia. Her chest x-ray shows either infiltrate, or atelectasis, and the right lower lobe. She does not look particularly toxic. She's on room air. Saturations are 97%. She's not receiving any IV fluids. White count is 4.05, hemoglobin 10.1, hematocrit 32.7, and platelet count is normal. Electrolyte profile is completely normal. Calcium is 8.6. Total protein is 5. Urine might be positive for a urinary tract infection. She's not having any urinary complaints. Her chest x-ray on the day of admission, was interpreted as normal. I believe it to be normal as well. Her more recent chest x-ray dated February 21, she was a potential right lower lobe infiltrate. The patient is seen today 02/23/2023 in follow-up on the regular medical floor. She is currently resting comfortably in bed. Awake and alert in no acute distress. Denies any worsening shortness of breath, cough or congestion. No chest pain or palpitations. No dizziness or lightheadedness. He is maintaining good O2 saturations in the 90s on room air. She's been afebrile. Hemodynamically stable. Pro-calcitonin was 0.04. She is continued on Symbicort, Singulair, albuterol, antibiotics in the form of Zosyn. She is anticoagulated with Eliquis. Objective - Vital Signs Vital signs: Vital Signs Temp 98.0 F 02/23/23 07:00 Pulse 78 02/23/23 07:00 Resp 16 02/23/23 09:11 BP 108/76 02/23/23 07:00 Pulse Ox 97 02/23/23 07:00 FiO2 21 08/18/23 08:38 Intake & Output 02/22/23 02/23/23 02/23/23 18:59 06:59 18:59 Intake Total 118 118 Balance 118 118 Intake: Oral 118 118 Other: Voiding Method Toilet Toilet # Voids 2 1 # Bowel Movements 1 - Exam GENERAL EXAM: Alert, active, pleasant 67-year-old female, on room air, comfortable in no apparent distress. HEAD: Normocephalic. EYES: Normal reaction of pupils, equal size. NOSE: Clear with pink turbinates. THROAT: No erythema or exudates. NECK: No masses, no JVD. CHEST: No chest wall deformity. LUNGS: Equal air entry with no crackles, wheeze, rhonchi or dullness. CVS: S1 and S2 normal with no audible murmur, regular rhythm. ABDOMEN: No hepatosplenomegaly, normal bowel sounds, no guarding or rigidity. SPINE: No scoliosis or deformity SKIN: No rashes CENTRAL NERVOUS SYSTEM: No focal deficits, tone is normal in all 4 extremities. EXTREMITIES: There is no peripheral edema. No clubbing, no cyanosis. Peripheral pulses are intact. - Labs CBC & Chem 7: 02/21/23 05:51 02/21/23 05:51 Assessment and Plan Assessment: Syncope/near syncope, currently being evaluated by the primary service. Asthma/COPD, not particularly active at this time. Questionable pneumonia, right lower lobe, vs. atelectasis. Pro-calcitonin 0.04 History of atrial fibrillation. History of heart failure. History of DVT. History of gastroesophageal reflux disease. Dyslipidemia. History of myocardial infarction. History of pulmonary embolism. History of sleep apnea syndrome. Multiple other medical problems and comorbidities. Plan: The patient was seen and evaluated Currently stable and on room air Procalcitonin within normal limits Recommend discontinuing antibiotics Home once cleared by primary service Follow-up in our office in 1 week I have personally seen and examined the patient, performed the documentation and the assessment and plan as written. Number of minutes spent on the visit: 10.
--- NOTE | 2023-03-08 16:59 | CDI ---
Documentation Clarification Form Date: From: Josh Forte Phone: Admit Date: 02/22/2023 08:59:00 AM Patient Name: Becca Mendiola Visit Number: [id number] Discharge Date: 02/23/2023 05:15:00 PM ATTENTION: The Clinical Documentation Specialists (CDI) and [facility] Coding Staff appreciate your assistance in clarifying documentation. Please respond to the clarification below the line at the bottom and electronically sign. The CDI & [facility] Coding staff will review the response and follow-up if needed. Please note: Queries are made part of the Legal Health Record. If you have any questions, please contact the author of this message via ITS. Dr. Dirk Menon [CAP/HCAP/Pneumonia] is documented in progess note and discharge . Additional clarification regarding the type of pneumonia is requested. History/Risk Factors: Clinical Indicators: Right LL infiltrate CXR documents may be developing atelectasis vs pneumonia WBC/Left shift: X-ray 02/21 may be developing atelectasis vs pneumonia Lung/Breathing assessment Treatment: Antibiotics IV Zosyn stopped 02/22 O2 Breathing Tx: Please clarify the type of pneumonia, if known: [ ] Aspiration Pneumonia, Due to food or vomitus [ ] Bacterial Pneumonia, specify causal organism (if known) [X ] Gram Negative Bacterial Pneumonia [ ] Bacterial Pneumonia Due to Strep [ ] Bacterial Pneumonia Due to Staph [ ] Bacterial Pneumonia Due to E. Coli [ ] Other bacteria (please specify) [ ] Viral Pneumonia, specify casual organism (if known) [ ] Ventilator Associated Pneumonia [ ] Other, please specify [ ] Unable to determine [ ] Ruled out MTDD
== END 2023-02-23 17:15 | disposition home or self-care (01) | DRG 313 ==
LOC: EC 11:53 → 6NMEDSUR 14:05 → OBSVTOIN 02-22 08:59
PROVIDERS: ADMIT Internal Medicine; ATTEND Internal Medicine
DX: R07.9 Chest pain, unspecified (principal); J18.9 Pneumonia, unspecified organism; J44.0 Chronic obstructive pulmonary disease with (acute) lower respiratory infection; I11.0 Hypertensive heart disease with heart failure; I48.0 Paroxysmal atrial fibrillation; I50.9 Heart failure, unspecified; R00.0 Tachycardia, unspecified; E78.5 Hyperlipidemia, unspecified; G47.33 Obstructive sleep apnea (adult) (pediatric); F41.9 Anxiety disorder, unspecified; K21.9 Gastro-esophageal reflux disease without esophagitis; M79.7 Fibromyalgia; Z87.01 Personal history of pneumonia (recurrent); F03.90 Unspecified dementia, unspecified severity, without behavioral disturbance, psychotic disturbance, mood disturbance, and anxiety; I25.2 Old myocardial infarction; Z91.81 History of falling; R29.6 Repeated falls; Z85.828 Personal history of other malignant neoplasm of skin; I08.1 Rheumatic disorders of both mitral and tricuspid valves; I95.1 Orthostatic hypotension; D64.9 Anemia, unspecified; G25.81 Restless legs syndrome; J30.9 Allergic rhinitis, unspecified; Z79.01 Long term (current) use of anticoagulants; Z79.82 Long term (current) use of aspirin; Z79.899 Other long term (current) drug therapy; Z86.711 Personal history of pulmonary embolism; Z82.49 Family history of ischemic heart disease and other diseases of the circulatory system; Z86.718 Personal history of other venous thrombosis and embolism; Z90.710 Acquired absence of both cervix and uterus; Z90.49 Acquired absence of other specified parts of digestive tract; Z96.641 Presence of right artificial hip joint; Z98.84 Bariatric surgery status; Z87.19 Personal history of other diseases of the digestive system; Z87.442 Personal history of urinary calculi; Z91.018 Allergy to other foods; Z91.048 Other nonmedicinal substance allergy status
CPT/HCPCS: 36415; 71045; 71046; 80048; 80053; 81001; 83690; 83735; 84145; 84484; 85025; 85610; 85730; 87449; 87636; 93005; 93270; 93306; 94640; 94760; 99285

== ENCOUNTER → 2023-07-20 | Outpatient (CLI) | payer MEDICARE, OTHER ==
--- NOTE | 2023-07-20 17:36 | XR ---
EXAMINATION TYPE: XR thoracic spine 3 views, XR lumbosacral spine 5 views DATE OF EXAM: 07/20/2023 COMPARISON: NONE HISTORY: 68-year-old female pain after fall, M54.6,M54.50 FINDINGS: Thoracic spine: Osteopenia. All pedicles are visualized. Surgical material at the GE junction. Mild to moderate degen erative disc disease midthoracic spine. Minimal anterior wedging of T7 vertebral body appears to have been present on 12/24/2022 as well suggesting an old injury. Remaining vertebral body heights are pre served and alignment is maintained. Lumbar spine: 5 lumbar type vertebral bodies. Osteopenia. Superior endplate deformities of L4 and L5 remain unchang ed from 12/24/2022. Mild retropulsion superior endplate of L4 is unchanged as well. Degenerative grade 1 anterolisthesis L3-L4. Degenerative trace grade 1 retrolisthesis L1-L2. Facet arthropathy mid to l ower lumbar spine. IMPRESSION: Thoracic spine: 1. Moderate degenerative disc disease midthoracic spine. 2. Minimal anterior wedge deformity of T7 remains unchanged compatible with a chronic injury. 3. No new vertebral compression collapse or malalignment seen. Lumbar spine: 4. Superior endplate deformities of L4 and L5 are old. 5. Unchanged/chronic slight retropulsion superior endplate of L4. 6. Degenerative grade 1 spondylolisthesis L1-L2 and L3-L4 is unchanged. 7. No new vertebral compression collapse. Facet arthropathy lower lumbar spine.
--- NOTE | 2023-07-20 17:40 | XR ---
EXAMINATION TYPE: XR chest 2V, XR ribs 4 views LT DATE OF EXAM: 07/20/2023 COMPARISON: Radiograph 02/21/2023 HISTORY: 68-year-old female pain after fall. M54.6,M54.50 FINDINGS: Chest: The cardiomediastinal silhouette, aorta, and pulmonary vasculature are within normal limits. Mild hyp erinflation. Slightly large appearance to the right main pulmonary artery on the lateral view. Some patchy opacity at the left base is similar. No new consolidation or pleural effusion. Left RIBS: No displaced left rib fractures seen. IMPRESSION: Chest: 1. Patchy atelectasis versus mild infiltrate at the left base remains unchanged from recent prior. Left RIBS: 2. No displaced left rib fracture seen.
== END | disposition home or self-care (01) ==
LOC: RADXRMAIN 14:49
PROVIDERS: ATTEND Internal Medicine
DX: M51.34 Other intervertebral disc degeneration, thoracic region (principal); M51.36 Other intervertebral disc degeneration, lumbar region; M43.16 Spondylolisthesis, lumbar region; M47.816 Spondylosis without myelopathy or radiculopathy, lumbar region
CPT/HCPCS: 71046; 72070; 72110

== ENCOUNTER 2023-08-26 10:09 | Emergency (ER) | payer MEDICARE, OTHER ==
--- NOTE | 2023-08-26 10:47 | ED ---
Fall HPI - General Chief Complaint: Fall Stated Complaint: Fall-R rib pain Time Seen by Provider: 08/26/23 10:14 Source: patient, RN notes reviewed Mode of arrival: ambulatory Limitations: no limitations - History of Present Illness Initial Comments: This is a 68-year-old female who presents to the emergency department for frequent falls and pain over the right rib cage. Patient has a history of A. fib, and states that she has episodes during A. fib where she becomes short of breath and has a temporary loss of consciousness. She tries to lay herself down in an attempt to avoid any injuries when this occurs. However, she does occasionally fall during these episodes. She recently injured the right rib cage during one of the falls this past week, and states that the pain is continuing to get worse. She was given a prescription for [place] to see if this could help with her symptoms. However, she had to take 2 tablets at a time, for a total of 10 mg, to get any relief. She is now out of that prescription. Pain is worse when she tries to breathe in. She is also concerned that these falls are becoming more frequent. She does live with her . Complaint: fall - Related Data Home Medications Medication Instructions Recorded Confirmed ALPRAZolam [Xanax] 2 mg PO TID 12/14/13 02/19/23 FLUoxetine HCL [PROzac] 40 mg PO BID 12/14/13 02/19/23 QUEtiapine [SEROquel] 100 mg PO HS 01/04/16 02/19/23 Fluticasone/Vilanterol [Breo 1 puff INHALATION RT-DAILY 05/15/18 02/19/23 Ellipta 200-25 Mcg Inhaler] Albuterol Sulfate [Ventolin HFA] 2 puff INHALATION RT-Q6H PRN 12/09/19 02/19/23 Atorvastatin [Lipitor] 10 mg PO DAILY 12/09/19 02/19/23 Cholecalciferol [Vitamin D3 (25 100 mcg PO BID 12/10/20 02/19/23 Mcg = 1000 Iu)] Omeprazole 20 mg PO AC-BID 12/10/20 02/19/23 lamoTRIgine [LaMICtal] 50 mg PO W/SUPPER 12/10/20 02/19/23 Famotidine 20 mg PO BID 10/06/21 02/19/23 Montelukast [Singulair] 10 mg PO HS 11/19/21 02/19/23 Ondansetron Odt [Zofran ODT] 4 mg PO Q8H PRN 11/19/21 02/19/23 Calcium Carbonate [Calcium] 600 mg PO BID 08/03/22 02/19/23 QUEtiapine [SEROquel] 50 mg PO W/SUPPER 08/13/22 02/19/23 Dextroamphetamine/Amphetamine 20 mg PO BID@0800,1500 10/27/22 02/19/23 [Adderall] HYDROcodone/APAP 5-325MG [[place] 1 tab PO BID PRN 10/27/22 02/19/23 5-325] Isosorbide Mononitrate ER [Imdur] 30 mg PO HS 10/27/22 02/19/23 QUEtiapine [SEROquel] 25 mg PO DAILY PRN 10/27/22 02/19/23 Nitroglycerin Sl Tabs [Nitrostat] 0.4 mg SL Q5M PRN 12/24/22 02/19/23 Previous Rx's Medication Instructions Recorded Apixaban [Eliquis] 5 mg PO BID 30 Days #60 tab 02/05/19 Aspirin 81 mg PO DAILY tab 08/04/22 Meclizine [Antivert] 25 mg PO BID PRN tab 10/30/22 Metoprolol Succinate (ER) [Toprol 12.5 mg PO HS #30 tab 02/23/23 XL] HYDROcodone/APAP 7.5-325MG [[place] 1 tab PO Q6HR PRN 3 Days #12 tab 08/26/23 7.5-325] Lidocaine 5% Patch [Lidoderm 5% 1 patch TOPICAL DAILY PRN #30 patch 08/26/23 Patch] methocarbamoL [Robaxin-750] 1,500 mg PO TID PRN #30 tab 08/26/23 Allergies Allergy/AdvReac Type Severity Reaction Status Date / Time adhesive tape AdvReac Skin Verified 08/26/23 10:20 Tearing Review of Systems ROS Statement: Those systems with pertinent positive or pertinent negative responses have been documented in the HPI. ROS Other: All systems not noted in ROS Statement are negative. Past Medical History Past Medical History: Atrial Fibrillation, Asthma, Cancer, Heart Failure, COPD, Dementia, Deep Vein Thrombosis (DVT), Fibromyalgia, GERD/Reflux, GI Bleed, Hyperlipidemia, Memory Impairment, Myocardial Infarction (TN), Osteoarthritis (OA), Pneumonia, Pulmonary Embolus (PE), Sleep Apnea/CPAP/BIPAP Additional Past Medical History / Comment(s): had pneumonia fall 2020, skin cancer with removals, pt states she had a TN in 2015, hypotension, dementia/memory issues d/t of daughter, esophageal strictures w/ballooning, diverticular disease, anemia, RLS, kidney stones, sinus problems, LORIE-not using CPAP, fx. ribs & was adm. & found to have bad gallbladder, hx. of lung nodules-had lavage, PE's & DVT-unsure of cause, takes metoprolol for a-fib, fell and fx. right wrist-has half cast/splint Last Myocardial Infarction Date:: 2015 History of Any Multi-Drug Resistant Organisms: None Reported Past Surgical History: Adenoidectomy, Appendectomy, Bariatric Surgery, Breast Surgery, Cholecystectomy, Hernia Repair, Hysterectomy, Joint Replacement, Tonsillectomy Additional Past Surgical History / Comment(s): R breast bx. x2, 3 umbilical hernia repairs, lithotripsies, gastric bypass, L chao benign tumor, multiple skin bx/skin cancer removals, EGD/dilations and colonoscopies. rt hip replacement Past Anesthesia/Blood Transfusion Reactions: Previous Problems w/ Anesthesia Additional Past Anesthesia/Blood Transfusion Reaction / Comment(s): bp dips low, tends to bleed alot w/surgeries, no problems w/blood transfusions Past Psychological History: Anxiety, Depression Smoking Status: Never smoker Past Alcohol Use History: None Reported Past Drug Use History: None Reported - Past Family History Brother(s) Family Medical History: Cancer Additional Family Medical History / Comment(s): Psychiatric history also runs in the patient's family. The patient's daughter has committed suicide. The patient's brother and sister and mother all of cancers. Apparently rest cancer and esophageal cancer and pancreatic cancer runs in family unable to give detailed history on that. Sister(s) Family Medical History: Cancer Father Family Medical History: Cancer Additional Family Medical History / Comment(s): Father had lung cancer. Mother Family Medical History: Cancer Additional Family Medical History / Comment(s): Mother had pancreatic cancer. General Exam Limitations: no limitations General appearance: alert, in no apparent distress Head exam: Present: atraumatic, normocephalic, normal inspection Respiratory exam: Present: normal lung sounds bilaterally, chest wall tenderness (Right rib cage). Absent: respiratory distress, wheezes, rales, rhonchi, stridor Cardiovascular Exam: Present: regular rate, normal rhythm, normal heart sounds. Absent: systolic murmur, diastolic murmur, rubs, gallop, clicks Neurological exam: Present: alert, oriented X3, CN II-XII intact Psychiatric exam: Present: normal affect, normal mood Skin exam: Present: warm, dry, intact, normal color. Absent: rash Course Vital Signs 08/26/23 08/26/23 08/26/23 10:17 11:45 16:00 Temperature 98.4 F 98.7 F Pulse Rate 72 63 66 Respiratory 20 16 18 Rate Blood Pressure 110/70 126/84 119/76 O2 Sat by Pulse 98 97 97 Oximetry Medical Decision Making - Medical Decision Making This is a 68-year-old female who presents to the emergency department for frequent falls and pain over the right rib cage. Was pt. sent in by a medical professional or institution? @ -No Did you speak to anyone other than the patient for history? @ -No Did you review nursing and triage notes? @ -Yes, and I agree, it is accurate with regards to the patient's symptoms. Were old charts reviewed? @ -No Differential Diagnosis? @ -Differential Rib Pain: Fracture, contusion, pneumothorax, this is not meant to be an all-inclusive list. EKG interpreted by me (3pts min.)? @ -EKG interpreted by me demonstrating the following: Sinus rhythm. Ventricular rate 65 bpm, WI interval 149 ms, QRS duration 87 ms, QTC 460 ms. X-rays interpreted by me (1pt min.)? @ -Chest x-ray and x-ray of the right rib cage obtained. My interpretation identifies multiple right sided rib fractures. CT interpreted by me (1pt min.)? @ -Not obtained U/S interpreted by me (1pt. min.)? @ -Not obtained What testing was considered but not performed? (CT, X-rays, U/S, labs)? Why? @ -None What meds were considered but not given? Why? @ -None Did you discuss the management of the patient with other professionals? @ -The patient's PCP, Dr. Menon, who advised that if her workup is unremarkable and we can control her symptoms, that she can follow up in the office. Did you reconcile home meds? @ -No Was smoking cessation discussed for >3mins.? @ -No Was critical care preformed (if so, how long)? @ -No Were there social determinants of health that impacted care today? How? (Homelessness, low income, unemployed, alcoholism, drug addiction, transportation, low edu. Level, literacy, decrease access to med. care, fpc, rehab)? @ -No Was there de-escalation of care discussed even if they declined? (Discuss DNR or withdrawal of care, Hospice)? @ -No What co-morbidities impacted this encounter? (DM, HTN, Smoking, COPD, CAD, Cancer, CVA, Hep., AIDS, mental health diagnosis, sleep apnea, morbid obesity)? @ -A-fib, COPD Was patient admitted / discharged? @ -Discharged. Lab work obtained and found to be relatively unremarkable. X- ray of the chest and right rib cage obtained demonstrating fractures of ribs 8 through 10 on the right. She did have an episode of chest pain in the emergency department, which was treated with nitro. Repeat EKG at that time revealed no changes. She remained in sinus rhythm during her whole visit in the emergency department without any episodes of a-fib. Her pain was well controlled in the emergency department and she was monitored for several hours without any additional feelings of chest pain, shortness of breath, or dizziness. Case discussed with Dr. Menon, who advised that if her workup is unremarkable and her symptoms are well controlled in the emergency department, that she can be discharged home to follow-up in the office. This was discussed with the patient, who was in agreement with this plan. Prescription for [place], lidocaine patches, and Robaxin provided with dosing instructions reviewed for management of the rib fractures. Advised that the Robaxin and [place] may make her drowsy and she avoid driving or operating machinery when taking them. Also advised that she needs to take several deep breaths an hour to reduce the risk of developing a secondary pneumonia. Patient discharged home in stable condition with strict return parameters. Undiagnosed new problem with uncertain prognosis?: @ -None Drug Therapy requiring intensive monitoring for toxicity (Heparin, Nitro, Insulin, Cardizem)? @ -None Were any procedures done? @ -None Diagnosis/symptom? @ -Rib fractures Acute, or Chronic, or Acute on Chronic? @ -Acute Uncomplicated (without systemic symptoms) or Complicated (systemic symptoms)? @ -Uncomplicated Side effects of treatment? @ -None Exacerbation, Progression, or Severe Exacerbation] @ -Not applicable Poses a threat to life or bodily function? @ -No Return precautions reviewed in depth, the patient is instructed to return to the emergency department with any new, worsening, or concerning symptoms. Patient verbalized understanding. This case was discussed in detail with the attending ED physician, Dr. Jensen. Presentation, findings, and treatment plan discussed in detail as well. - Lab Data Result diagrams: 08/26/23 10:39 08/26/23 10:39 Lab Results 08/26/23 08/26/23 08/26/23 Range/Units 10:39 10:39 10:39 WBC 4.3 (3.8-10.6) k/uL RBC 4.02 (3.80-5.40) m/uL Hgb 11.7 (11.4-16.0) gm/dL Hct 38.5 (34.0-46.0) % MCV 95.8 (80.0-100.0) fL MCH 29.1 (25.0-35.0) pg MCHC 30.3 L (31.0-37.0) g/dL RDW 14.3 (11.5-15.5) % Plt Count 306 (150-450) k/uL MPV 9.5 Neutrophils % 64 % Lymphocytes % 26 % Monocytes % 6 % Eosinophils % 2 % Basophils % 0 % Neutrophils # 2.8 (1.3-7.7) k/uL Lymphocytes # 1.1 (1.0-4.8) k/uL Monocytes # 0.3 (0-1.0) k/uL Eosinophils # 0.1 (0-0.7) k/uL Basophils # 0.0 (0-0.2) k/uL Hypochromasia Moderate PT 10.3 (10.0-12.5) sec INR 0.9 (<1.2) APTT 22.5 (22.0-30.0) sec Sodium 140 (137-145) mmol/L Potassium 4.9 (3.5-5.1) mmol/L Chloride 111 H (98-107) mmol/L Carbon Dioxide 23 (22-30) mmol/L Anion Gap 6 mmol/L BUN 14 (7-17) mg/dL Creatinine 0.60 (0.52-1.04) mg/dL Est GFR (CKD-EPI)AfAm >90 (>60 ml/min/1.73 sqM) Est GFR (CKD-EPI)NonAf >90 (>60 ml/min/1.73 sqM) Glucose 85 (74-99) mg/dL Plasma Lactic Acid Abhijeet (0.7-2.0) mmol/L Calcium 8.4 (8.4-10.2) mg/dL Magnesium 1.8 (1.6-2.3) mg/dL Total Bilirubin 0.6 (0.2-1.3) mg/dL AST 42 H (14-36) U/L ALT 25 (4-34) U/L Alkaline Phosphatase 78 (38-126) U/L Troponin I (0.000-0.034) ng/mL Total Protein 5.5 L (6.3-8.2) g/dL Albumin 3.3 L (3.5-5.0) g/dL 08/26/23 08/26/23 Range/Units 10:39 10:39 WBC (3.8-10.6) k/uL RBC (3.80-5.40) m/uL Hgb (11.4-16.0) gm/dL Hct (34.0-46.0) % MCV (80.0-100.0) fL MCH (25.0-35.0) pg MCHC (31.0-37.0) g/dL RDW (11.5-15.5) % Plt Count (150-450) k/uL MPV Neutrophils % % Lymphocytes % % Monocytes % % Eosinophils % % Basophils % % Neutrophils # (1.3-7.7) k/uL Lymphocytes # (1.0-4.8) k/uL Monocytes # (0-1.0) k/uL Eosinophils # (0-0.7) k/uL Basophils # (0-0.2) k/uL Hypochromasia PT (10.0-12.5) sec INR (<1.2) APTT (22.0-30.0) sec Sodium (137-145) mmol/L Potassium (3.5-5.1) mmol/L Chloride (98-107) mmol/L Carbon Dioxide (22-30) mmol/L Anion Gap mmol/L BUN (7-17) mg/dL Creatinine (0.52-1.04) mg/dL Est GFR (CKD-EPI)AfAm (>60 ml/min/1.73 sqM) Est GFR (CKD-EPI)NonAf (>60 ml/min/1.73 sqM) Glucose (74-99) mg/dL Plasma Lactic Acid Abhijeet 1.2 (0.7-2.0) mmol/L Calcium (8.4-10.2) mg/dL Magnesium (1.6-2.3) mg/dL Total Bilirubin (0.2-1.3) mg/dL AST (14-36) U/L ALT (4-34) U/L Alkaline Phosphatase (38-126) U/L Troponin I <0.012 (0.000-0.034) ng/mL Total Protein (6.3-8.2) g/dL Albumin (3.5-5.0) g/dL - Radiology Data Radiology results: report reviewed, image reviewed Disposition Clinical Impression: Fall, Right rib fracture Disposition: HOME SELF-CARE Instructions (If sedation given, give patient instructions): Rib Fracture (ED) Additional Instructions: Return to the emergency department with any new, worsening, or concerning symptoms. You can take the [place] up to every 6 hours as needed for pain relief. You can also take the Robaxin as 1-2 tablets up to 3-4 times daily. Be aware that both the Robaxin and [place] may make you drowsy. You can also apply the lidocaine patches daily. Follow up with your primary care provider in 1-2 days. Prescriptions: Lidocaine 5% Patch [Lidoderm 5% Patch] 1 patch TOPICAL DAILY PRN #30 patch PRN Reason: Pain HYDROcodone/APAP 7.5-325MG [[place] 7.5-325] 1 tab PO Q6HR PRN 3 Days #12 tab PRN Reason: Pain methocarbamoL [Robaxin-750] 1,500 mg PO TID PRN #30 tab PRN Reason: Pain Is patient prescribed a controlled substance at d/c from ED?: Yes When asked, does pt state using other controlled substances?: Yes If prescribed controlled substance>3 days was MAPS reviewed?: Prescribed <3 Days Referrals: Dirk Menon MD [Primary Care Provider] - 1-2 days
[2023-08-26] MEDS: LIDOCAINE 4% PATCH TOPICAL ONE (11:05)
[2023-08-26] MEDS: MORPHINE SULFATE 2 MG/ML SYRINGE IVP STA (11:05)
[2023-08-26] MEDS: KETOROLAC 15 MG/ML 1 ML VIAL IVP STA (11:05)
[2023-08-26 11:20] LABS: Basophils % (A) 0 %; Eosinophils # (A) 0.1 k/uL (0-0.7); Eosinophils % (A) 2 %; HCT 38.5 % (34.0-46.0); HGB 11.7 gm/dL (11.4-16.0); Hypochromasia Moderate; Lymphocytes # (A) 1.1 k/uL (1.0-4.8); Lymphocytes % (A) 26 %; MCH 29.1 pg (25.0-35.0); MCHC 30.3 g/dL (31.0-37.0); MCV 95.8 fL (80.0-100.0); Mean Platelet Volume 9.5; Monocytes # (A) 0.3 k/uL (0-1.0); Monocytes % (A) 6 %; Neutrophils # (A) 2.8 k/uL (1.3-7.7); Neutrophils % (A) 64 %; Platelet Count 306 k/uL (150-450); RBC 4.02 m/uL (3.80-5.40); RDW 14.3 % (11.5-15.5); WBC 4.3 k/uL (3.8-10.6)
[2023-08-26 11:32] LABS: ALT 25 U/L (4-34); AST 42 U/L (14-36); African American GFR (CKD) >90 (>60 ml/min/1.73 sqM); Albumin 3.3 g/dL (3.5-5.0); Alkaline Phosphatase 78 U/L (38-126); Anion Gap 6 mmol/L; Blood Urea Nitrogen 14 mg/dL (7-17); Calcium 8.4 mg/dL (8.4-10.2); Carbon Dioxide 23 mmol/L (22-30); Chloride 111 mmol/L (98-107); Glucose 85 mg/dL (74-99); Magnesium 1.8 mg/dL (1.6-2.3); Non-African American GFR(CKD) >90 (>60 ml/min/1.73 sqM); Sodium 140 mmol/L (137-145); Total Bilirubin 0.6 mg/dL (0.2-1.3); Total Protein 5.5 g/dL (6.3-8.2)
[2023-08-26 11:33] LABS: Potassium 4.9 mmol/L (3.5-5.1)
[2023-08-26 11:46] LABS: INR 0.9 (<1.2); Partial Thromboplastin Time 22.5 sec (22.0-30.0); Prothrombin Time 10.3 sec (10.0-12.5)
--- NOTE | 2023-08-26 11:57 | XR ---
EXAMINATION TYPE: XR ribs RT DATE OF EXAM: 08/26/2023 11:27 AM CLINICAL INDICATION:Female, 68 years old with history of Right rib pain after fall; COMPARISON: 08/26/2023 TECHNIQUE: XR ribs RT; Frontal and oblique views of the ribs with frontal chest radiograph. FINDINGS/IMPRESSION: * Fractures of multiple ribs including right ribs 8-10 in the right. * Upper abdominal surgical suture and surgical clips. No additional fractures definitively visualize d.
--- NOTE | 2023-08-26 11:58 | XR ---
EXAMINATION TYPE: XR chest 2V DATE OF EXAM: 08/26/2023 11:27 AM CLINICAL INDICATION:Female, 68 years old with history of Palpitations; [facility] COMPARISON: Same day radiographs. TECHNIQUE: XR chest 2V Frontal and lateral views of the chest. FINDINGS: Lungs/Pleura: There is no evidence of pleural effusion, focal consolidation, or pneumothorax. Pulmonary vascularity: Unremarkable. Heart/mediastinum: Cardiomediastinal silhouette is unremarkable. Musculoskeletal: Fractures are right ribs 8 through 10. IMPRESSION: No acute cardiopulmonary disease/process. Fractures are right ribs 8 through 10 as seen on same day radiographs.
[2023-08-26] MEDS: NITROGLYCERIN SL TABS 0.4 MG TAB SUBLINGUAL STA (12:31)
[2023-08-26] MEDS: ONDANSETRON 4 MG/2 ML VIAL IVP STA ×2 (12:34→16:05)
[2023-08-26] MEDS: SODIUM CHLORIDE 0.9% 1,000 ML IV STA ×2 (12:36→14:17)
[2023-08-26] MEDS: MORPHINE SULFATE 4 MG/ML SYRINGE IVP STA (14:13)
[2023-08-26 16:21] VITALS: BP 119/76; PULSE 66; RESP 18; TEMP 98.7
== END 2023-08-26 17:00 | disposition home or self-care (01) ==
LOC: EC 10:09
DX: S22.41XA Multiple fractures of ribs, right side, initial encounter for closed fracture (principal); E78.5 Hyperlipidemia, unspecified; G47.30 Sleep apnea, unspecified; I25.2 Old myocardial infarction; I48.91 Unspecified atrial fibrillation; I50.9 Heart failure, unspecified; K21.9 Gastro-esophageal reflux disease without esophagitis; M19.90 Unspecified osteoarthritis, unspecified site; F41.9 Anxiety disorder, unspecified; F32.A Depression, unspecified; Z79.899 Other long term (current) drug therapy; Z90.49 Acquired absence of other specified parts of digestive tract; Z91.041 Radiographic dye allergy status; W18.30XA Fall on same level, unspecified, initial encounter
CPT/HCPCS: 36415; 80053; 83605; 83735; 84484; 85025; 85610; 85730; 71100; 71046; 99284; 96374; 96375 ×2; 96376 ×2; 96361 ×2; J2270 ×2; J2405; J1885

== ENCOUNTER 2023-08-31 15:56 | Inpatient (IN) | payer MEDICARE, OTHER ==
[2023-08-31] MEDS: SODIUM CHLORIDE 0.9% 1,000 ML IV ONE (17:17)
[2023-08-31 17:27] LABS: Basophils % (A) 1 %; Eosinophils # (A) 0.1 k/uL (0-0.7); Eosinophils % (A) 3 %; HCT 35.9 % (34.0-46.0); HGB 11.1 gm/dL (11.4-16.0); Hypochromasia Moderate; Lymphocytes # (A) 1.2 k/uL (1.0-4.8); Lymphocytes % (A) 29 %; MCH 29.6 pg (25.0-35.0); MCHC 31.1 g/dL (31.0-37.0); MCV 95.4 fL (80.0-100.0); Monocytes # (A) 0.3 k/uL (0-1.0); Monocytes % (A) 6 %; Neutrophils # (A) 2.4 k/uL (1.3-7.7); Neutrophils % (A) 59 %; Platelet Count 279 k/uL (150-450); RBC 3.76 m/uL (3.80-5.40); RDW 14.3 % (11.5-15.5); WBC 4.2 k/uL (3.8-10.6)
--- NOTE | 2023-08-31 17:34 | ED ---
General Adult HPI - General Chief complaint: Fall Stated complaint: General Weakness Time Seen by Provider: 08/31/23 16:37 Source: patient, RN notes reviewed, old records reviewed Mode of arrival: ambulatory Limitations: no limitations - History of Present Illness Initial comments: Patient is a 68-year-old female who presents emergency department after repeated episodes of dizziness, lightheadedness and falls. Unknown if she fully passes out but states she has recurrent episodes of vertiginous type symptoms. Currently is not having any symptoms. Has fallen multiple times lately. Is on blood thinners. Has known right-sided rib fractures. No other acute complaints at this time. Is complaining of lower back pain. Is complaining of a mild he adache as well. Presents for further evaluation. - Related Data Home Medications Medication Instructions Recorded Confirmed ALPRAZolam [Xanax] 2 mg PO TID 12/14/13 08/31/23 FLUoxetine HCL [PROzac] 40 mg PO BID 12/14/13 08/31/23 Fluticasone/Vilanterol [Breo 1 puff INHALATION RT-DAILY 05/15/18 08/31/23 Ellipta 200-25 Mcg Inhaler] Albuterol Sulfate [Ventolin HFA] 2 puff INHALATION RT-Q6H PRN 12/09/19 08/31/23 Atorvastatin [Lipitor] 10 mg PO HS 12/09/19 08/31/23 Omeprazole 20 mg PO AC-BID 12/10/20 08/31/23 Montelukast [Singulair] 10 mg PO HS 11/19/21 08/31/23 Ondansetron Odt [Zofran ODT] 4 mg PO Q8H PRN 11/19/21 08/31/23 QUEtiapine [SEROquel] 100 mg PO HS 08/13/22 08/31/23 Dextroamphetamine/Amphetamine 20 mg PO BID@0800,1500 10/27/22 08/31/23 [Adderall] Nitroglycerin Sl Tabs [Nitrostat] 0.4 mg SL Q5M PRN 12/24/22 08/31/23 Azithromycin [Zithromax] 500 mg PO DAILY 08/31/23 08/31/23 HYDROcodone/APAP 7.5-325MG [[place] 1 tab PO Q6H 08/31/23 08/31/23 7.5-325] Lidocaine 5% Patch [Lidoderm 5% 1 patch TOPICAL DAILY 08/31/23 08/31/23 Patch] QUEtiapine [SEROquel] 25 mg PO BID@0800,1500 08/31/23 08/31/23 lamoTRIgine [lamoTRIgine ER] 50 mg PO DAILY 08/31/23 08/31/23 Previous Rx's Medication Instructions Recorded Apixaban [Eliquis] 5 mg PO BID 30 Days #60 tab 02/05/19 Meclizine [Antivert] 25 mg PO BID PRN tab 10/30/22 Metoprolol Succinate (ER) [Toprol 12.5 mg PO HS #30 tab 02/23/23 XL] tiZANidine [Zanaflex] 2 mg PO Q6HR PRN #30 tab 08/27/23 Allergies Allergy/AdvReac Type Severity Reaction Status Date / Time adhesive tape AdvReac Skin Verified 08/31/23 21:37 Tearing Review of Systems ROS Statement: Those systems with pertinent positive or pertinent negative responses have been documented in the HPI. Review of Systems: CONST: Denies fever EYES: Denies blurry vision ENT: Denies nasal congestion C/V: Denies Chest pain RESP: Denies shortness of breath GI: Denies abdominal pain : Denies dysuria SKIN: Denies rash. MSK: Endorses rib and back pain NEURO: Endorses lightheadedness/dizziness ROS Other: All systems not noted in ROS Statement are negative. Past Medical History Past Medical History: Atrial Fibrillation, Asthma, Cancer, Heart Failure, COPD, Dementia, Deep Vein Thrombosis (DVT), Fibromyalgia, GERD/Reflux, GI Bleed, Hyperlipidemia, Memory Impairment, Myocardial Infarction (CT), Osteoarthritis (OA), Pneumonia, Pulmonary Embolus (PE), Sleep Apnea/CPAP/BIPAP Additional Past Medical History / Comment(s): had pneumonia fall 2020, skin cancer with removals, pt states she had a CT in 2016, hypotension, dementia/memory issues d/t of daughter, esophageal strictures w/ba llooning, diverticular disease, anemia, RLS, kidney stones, sinus problems, LORIE- not using CPAP, fx. ribs & was adm. & found to have bad gallbladder, hx. of lung nodules-had lavage, PE's & DVT-unsure of cause, takes metoprolol for a-fib, fell and fx. right wrist-has half cast/splint Last Myocardial Infarction Date:: 2015 History of Any Multi-Drug Resistant Organisms: None Reported Past Surgical History: Adenoidectomy, Appendectomy, Bariatric Surgery, Breast Surgery, Cholecystectomy, Hernia Repair, Hysterectomy, Joint Replacement, Tonsillectomy Additional Past Surgical History / Comment(s): R breast bx. x2, 3 umbilical hernia repairs, lithotripsies, gastric bypass, L chao benign tumor, multiple skin bx/skin cancer removals, EGD/dilations and colonoscopies. rt hip replacement Past Anesthesia/Blood Transfusion Reactions: Previous Problems w/ Anesthesia Additional Past Anesthesia/Blood Transfusion Reaction / Comment(s): bp dips low, tends to bleed alot w/surgeries, no problems w/blood transfusions Past Psychological History: Anxiety, Depression Smoking Status: Never smoker Past Alcohol Use History: None Reported Past Drug Use History: None Reported - Past Family History Brother(s) Family Medical History: Cancer Additional Family Medical History / Comment(s): Psychiatric history also runs in the patient's family. The patient's daughter has committed suicide. The patient's brother and sister and mother all of cancers. Apparently rest cancer and esophageal cancer and pancreatic cancer runs in family unable to give detailed history on that. Sister(s) Family Medical History: Cancer Father Family Medical History: Cancer Additional Family Medical History / Comment(s): Father had lung cancer. Mother Family Medical History: Cancer Additional Family Medical History / Comment(s): Mother had pancreatic cancer. General Exam - General Exam Comments Initial Comments: General: Appears in no acute distress. HEAD: Normal with no signs of head trauma. Negative Meng sign. Negative raccoon eyes. EYES: PERRLA, EOMI, conjunctiva normal, no discharge. Pupils are 3 mm and equal bilaterally. ENT: Hearing grossly intact, normal oropharynx. RESPIRATORY: Clear breath sounds bilaterally. No wheezes, rales, or rhonchi. No evidence of flail chest. C/V: Regular rate and rhythm. S1 and S2 auscultated, no edema, peripheral pulses 2+ and intact throughout ABD: Abd is soft, nontender, nondistended EXT: Normal range of motion, no obvious deformity. Pelvis is stable. Lumbar spine tenderness to palpation. No midline cervical, thoracic spine tenderness to palpation. Paraspinal muscle tenderness to palpation. SKIN: No rashes or lesions observed on exposed skin. NEURO: Alert and oriented x 4. Cranial nerves II-XII intact. No focal sensory or strength deficits. NIH is 0. GCS of 15. Limitations: no limitations Course Vital Signs 08/31/23 08/31/23 16:14 20:25 Temperature 98.6 F Pulse Rate 62 61 Respiratory 16 16 Rate Blood Pressure 99/67 111/76 O2 Sat by Pulse 97 98 Oximetry Medical Decision Making - Medical Decision Making Was pt. sent in by a medical professional or institution (, PA, SENIOR NETWORK SECURITY ARCHITECT, urgent care, hospital, or custodial...) When possible be specific @ -No Did you speak to anyone other than the patient for history (EMS, parent, family, police, friend...)? What history was obtained from this source @ -No Did you review nursing and triage notes (agree or disagree)? Why? @ -I reviewed and agree with nursing and triage notes Were old charts reviewed (outside hosp., previous admission, EMS record, old EKG, old radiological studies, urgent care reports/EKG's, custodial records)? Report findings @ -Old charts reviewed Differential Diagnosis (chest pain, altered mental status, abdominal pain women, abdominal pain men, vaginal bleeding, weakness, fever, dyspnea, syncope, headache, dizziness, GI bleed, back pain, seizure, CVA, palpatations, mental health, musculoskeletal)? @ -Differential Musculoskeletal Muscular strain, contusion, ligament sprain, fracture, arthritis, septic arthritis, bursitis, cellulitis, muscle spasm, nerve compression, DVT, arterial occlusion, herpes zoster, electrolyte abnormality, tumor.... This is not meant to be in all inclusive list EKG interpreted by me (3pts min.). @ -As above X-rays interpreted by me (1pt min.). @ -X-rays unremarkable for any obvious acute traumatic injury. CT interpreted by me (1pt min.). @ -CT brain, spine reveals no evidence of acute traumatic injury. U/S interpreted by me (1pt. min.). @ -None done What testing was considered but not performed or refused? (CT, X-rays, U/S, labs)? Why? @ -None What meds were considered but not given or refused? Why? @ -None Did you discuss the management of the patient with other professionals (professionals i.e. , PA, SENIOR NETWORK SECURITY ARCHITECT, lab, RT, psych nurse, social media content specialist, lens engraver, teacher, fisheries enforcement officer, field nurse case manager)? Give summary @ -Discussed with DAVID Mckeon of [facility] who accepted the admission. They are covering for Dr. Menon. Was smoking cessation discussed for >3mins.? @ -No Was critical care preformed (if so, how long)? @ -No Were there social determinants of health that impacted care today? How? (Homelessness, low income, unemployed, alcoholism, drug addiction, transportation, low edu. Level, literacy, decrease access to med. care, custodial, re hab)? @ -No Was there de-escalation of care discussed even if they declined (Discuss DNR or withdrawal of care, Hospice)? DNR status @ -No What co-morbidities impacted this encounter? (DM, HTN, Smoking, COPD, CAD, Cancer, CVA, ARF, Chemo, Hep., AIDS, mental health diagnosis, sleep apnea, morbid obesity)? @ -None Was patient admitted / discharged? Hospital course, mention meds given and route, prescriptions, significant lab abnormalities, going to OR and other pertinent info. @ -Patient presents for repeated episodes of what seems like lightheadedness, dizziness and vertiginous symptoms with falls. Is on blood thinners. We will obtain CT brain as well as basic labs, as well as CT imaging of the spine where she is having pain. Denies any chest pain. Denies any blurry vision. Denies any other complaints. Patient will be symptomatically treated with IV analgesia as well as fluids. Vital signs are currently within acceptable limits. EKG shows no signs of acute ischemia. Imaging shows no evidence of acute traumatic injury. Patient's laboratory studies are within acceptable limits as well. I reevaluated the patient at this time. I did offer observation admission as patient is a fall risk at home with these repeated episodes of vertigo and possible traumatic head injuries. She was in agreement this plan. Neurology consulted. I spoke with the admitting team, DAVID Mckeon of [facility] who is covering for Dr. Menon who accepted the admission. Undiagnosed new problem with uncertain prognosis? @ -No Drug Therapy requiring intensive monitoring for toxicity (Heparin, Nitro, Ins ulin, Cardizem)? @ -No Were any procedures done? @ -No Diagnosis/symptom? @ -Fall, vertigo, dizziness Acute, or Chronic, or Acute on Chronic? @ -Acute on chronic Uncomplicated (without systemic symptoms) or Complicated (systemic symptoms)? @ -Complicated Side effects of treatment? @ -No Exacerbation, Progression, or Severe Exacerbation? @ -No Poses a threat to life or bodily function? How? (Chest pain, USA, CT, pneumonia, PE, COPD, DKA, ARF, appy, cholecystitis, CVA, Diverticulitis, Homicidal, Suicidal, threat to staff... and all critical care pts) @ -Yes - Lab Data Result diagrams: 08/31/23 17:06 08/31/23 17:06 Lab Results 08/31/23 08/31/23 08/31/23 Range/Units 17:06 17:06 17:06 WBC 4.2 (3.8-10.6) k/uL RBC 3.76 L (3.80-5.40) m/uL Hgb 11.1 L (11.4-16.0) gm/dL Hct 35.9 (34.0-46.0) % MCV 95.4 (80.0-100.0) fL MCH 29.6 (25.0-35.0) pg MCHC 31.1 (31.0-37.0) g/dL RDW 14.3 (11.5-15.5) % Plt Count 279 (150-450) k/uL MPV 9.0 Neutrophils % 59 % Lymphocytes % 29 % Monocytes % 6 % Eosinophils % 3 % Basophils % 1 % Neutrophils # 2.4 (1.3-7.7) k/uL Lymphocytes # 1.2 (1.0-4.8) k/uL Monocytes # 0.3 (0-1.0) k/uL Eosinophils # 0.1 (0-0.7) k/uL Basophils # 0.0 (0-0.2) k/uL Hypochromasia Moderate PT 10.5 (10.0-12.5) sec INR 1.0 (<1.2) APTT 24.2 (22.0-30.0) sec Sodium 142 (137-145) mmol/L Potassium 4.4 (3.5-5.1) mmol/L Chloride 110 H (98-107) mmol/L Carbon Dioxide 27 (22-30) mmol/L Anion Gap 5 mmol/L BUN 15 (7-17) mg/dL Creatinine 0.67 (0.52-1.04) mg/dL Est GFR (CKD-EPI)AfAm >90 (>60 ml/min/1.73 sqM) Est GFR (CKD-EPI)NonAf >90 (>60 ml/min/1.73 sqM) Glucose 93 (74-99) mg/dL Calcium 8.4 (8.4-10.2) mg/dL Total Bilirubin 0.3 (0.2-1.3) mg/dL AST 32 (14-36) U/L ALT 42 H (4-34) U/L Alkaline Phosphatase 117 (38-126) U/L Total Protein 5.6 L (6.3-8.2) g/dL Albumin 3.2 L (3.5-5.0) g/dL Influenza Type A (PCR) (Not Detectd) Influenza Type B (PCR) (Not Detectd) RSV (PCR) (Not Detectd) SARS-CoV-2 (PCR) (Not Detectd) 08/31/23 Range/Units 17:06 WBC (3.8-10.6) k/uL RBC (3.80-5.40) m/uL Hgb (11.4-16.0) gm/dL Hct (34.0-46.0) % MCV (80.0-100.0) fL MCH (25.0-35.0) pg MCHC (31.0-37.0) g/dL RDW (11.5-15.5) % Plt Count (150-450) k/uL MPV Neutrophils % % Lymphocytes % % Monocytes % % Eosinophils % % Basophils % % Neutrophils # (1.3-7.7) k/uL Lymphocytes # (1.0-4.8) k/uL Monocytes # (0-1.0) k/uL Eosinophils # (0-0.7) k/uL Basophils # (0-0.2) k/uL Hypochromasia PT (10.0-12.5) sec INR (<1.2) APTT (22.0-30.0) sec Sodium (137-145) mmol/L Potassium (3.5-5.1) mmol/L Chloride (98-107) mmol/L Carbon Dioxide (22-30) mmol/L Anion Gap mmol/L BUN (7-17) mg/dL Creatinine (0.52-1.04) mg/dL Est GFR (CKD-EPI)AfAm (>60 ml/min/1.73 sqM) Est GFR (CKD-EPI)NonAf (>60 ml/min/1.73 sqM) Glucose (74-99) mg/dL Calcium (8.4-10.2) mg/dL Total Bilirubin (0.2-1.3) mg/dL AST (14-36) U/L ALT (4-34) U/L Alkaline Phosphatase (38-126) U/L Total Protein (6.3-8.2) g/dL Albumin (3.5-5.0) g/dL Influenza Type A (PCR) Not Detected (Not Detectd) Influenza Type B (PCR) Not Detected (Not Detectd) RSV (PCR) Not Detected (Not Detectd) SARS-CoV-2 (PCR) Not Detected (Not Detectd) - EKG Data -: EKG Interpreted by Me EKG Comments: 12-lead Electrocardiogram Interpretation Note EKG was reviewed and interpreted by myself. 12-lead ECG performed at 1633 is interpreted by me as revealing normal sinus rhythm at a rate of 60 beats per m inute. [place] is normal. MO interval is 142 ms, QRS duration is 84 ms, QTc is 430 ms.. There were no ST or T wave abnormalities to suggest myocardial ischemia or injury. R wave progression across the precordium was satisfactory. By my interpretation this EKG is non-diagnostic for acute ischemia. Disposition Clinical Impression: Vertigo, Fall, Dizziness Disposition: ADMITTED IP TO THIS HOSP Condition: Stable Time of Disposition: 20:15
[2023-08-31 17:35] LABS: Partial Thromboplastin Time 24.2 sec (22.0-30.0); Prothrombin Time 10.5 sec (10.0-12.5)
[2023-08-31 17:40] LABS: ALT 42 U/L (4-34); AST 32 U/L (14-36); African American GFR (CKD) >90 (>60 ml/min/1.73 sqM); Albumin 3.2 g/dL (3.5-5.0); Alkaline Phosphatase 117 U/L (38-126); Anion Gap 5 mmol/L; Blood Urea Nitrogen 15 mg/dL (7-17); Calcium 8.4 mg/dL (8.4-10.2); Carbon Dioxide 27 mmol/L (22-30); Chloride 110 mmol/L (98-107); Glucose 93 mg/dL (74-99); Non-African American GFR(CKD) >90 (>60 ml/min/1.73 sqM); Potassium 4.4 mmol/L (3.5-5.1); Sodium 142 mmol/L (137-145); Total Bilirubin 0.3 mg/dL (0.2-1.3); Total Protein 5.6 g/dL (6.3-8.2)
--- NOTE | 2023-08-31 18:16 | XR ---
EXAMINATION TYPE: XR pelvis AP view DATE OF EXAM: 08/31/2023 5:37 PM CLINICAL INDICATION:Female, 68 years old with history of fall; [facility] COMPARISON: 12/26/2022 TECHNIQUE: The pelvis was examined in a single projection. FINDINGS: Right hip arthroplasty changes appear intact. There is no evidence of fracture or dislocati on. There is no soft tissue abnormality. No abnormal calcifications are present. The spine appears i ntact. The hips appear intact. Osteophyte formation of the superior acetabulum bilaterally with moder ate to severe left hip joint space narrowing. IMPRESSION: 1. No acute osseous pathology. 2. Moderate to severe degeneration of the left hip
--- NOTE | 2023-08-31 18:16 | XR ---
EXAMINATION TYPE: XR chest 2V DATE OF EXAM: 08/31/2023 5:37 PM CLINICAL INDICATION:Female, 68 years old with history of fall; COMPARISON: Chest radiographs from 08/26/2023 TECHNIQUE: XR chest 2V Frontal and lateral views of the chest. FINDINGS: Lungs/Pleura: There is no evidence of pleural effusion, focal consolidation, or pneumothorax. Pulmonary vascularity: Unremarkable. Heart/mediastinum: Cardiomediastinal silhouette is unremarkable. Musculoskeletal: No acute osseous pathology. Other findings: None IMPRESSION: 1. No acute cardiopulmonary disease process. 2. COPD changes.
[2023-08-31] MEDS: MORPHINE SULFATE 4 MG/ML SYRINGE IVP STA (18:58)
--- NOTE | 2023-08-31 19:09 | CT ---
EXAMINATION TYPE: CT brain wo con CT DLP: Combined DLP of 3100 mGycm, Automated exposure control for dose reduction was used. DATE OF EXAM: 08/31/2023 6:43 PM COMPARISON: 12/25/2022.. CLINICAL INDICATION:Female, 68 years old with history of fall, Unwitnessed fall today, Pt did hit hea d and pt is on thinners. Unknown if there was a LOC TECHNIQUE: Brain: Axial CT images of the brain were obtained with coronal and sagittal reformats created and rev iewed. Contrast used: None. Oral contrast used: None. FINDINGS: Brain: Extra-axial spaces: No abnormal extra-axial fluid collections. Ventricular system: Within normal limits Cerebral parenchyma: Mineralization the basal ganglia. Cerebral atrophy. No acute intraparenchymal he morrhage or mass effect. The cabral-white junction is well differentiated. Scattered hypoattenuating a reas are seen within the white matter. Cerebellum: Unremarkable. Mass effect: No evidence of midline shift. Intracranial vasculature: Atherosclerotic calcifications of the intracranial vessels. Soft tissues: Normal. Calvarium/osseous structures: No depressed skull fracture. Paranasal sinuses and mastoid air cells: Mild scattered paranasal sinus disease. Visualized orbits: Orbital contents are intact. IMPRESSION: 1. No acute intracranial process. 2. Nonspecific white matter changes, likely secondary to chronic small vessel ischemic disease.
--- NOTE | 2023-08-31 19:43 | CT ---
EXAMINATION TYPE: CT CervThorLumbar spine wo con CT DLP: Combined DLP of 3100 mGycm, Automated exposure control for dose reduction was used. DATE OF EXAM: 08/31/2023 6:45 PM CLINICAL INDICATION:Female, 68 years old with history of fall; Unwitnessed fall today, Pt did hit hea d and pt is on thinners. Unknown if there was a LOC COMPARISON: 12/24/2022. TECHNIQUE: Axial images of the thoracic and lumbar spine were obtained without contrast. Coronal and sagittal reformats were performed. 3-D reformats of the bones were created on a separate workstation and submitted for review. CT Contrast: Contrast used: mL of , none. Oral contrast used: none. FINDINGS: Multilevel degeneration changes throughout the spine with osteophyte formation, facet and uncovertebr al joint arthropathy. There is mild scoliosis changes in the upper's thoracic spine. The cervical spine is without evidence of fracture. The thoracic spine demonstrates biconcave deformi ty to T7 which is stable from prior and is superimposed central noted on the superior and inferior en dplate.. Additional Schmorl's nodes are seen throughout the remainder of the spine including the lumbar spine at the superior endplate of L4. Similar buckling of the L5 vertebrae. Varying degrees of neural foraminal stenosis throughout the spine. Scattered mild and moderate neural foraminal stenosis no high-grade stenosis of the neural foramina identified. The spinal canal is pat ent with moderate narrowing L3-L4 and L4-L5. IMPRESSION: 1. Stable appearance of the spine, No evidence for acute fracture. 2. Moderate multilevel degeneration changes of the spine. 3. Spinal canal stenosis worse at L3-L4 and L4-L5 with at least moderate stenosis. 4. Neural foraminal stenosis throughout the spine with mild and moderate stenosis.
[2023-08-31] MEDS ORDERED: NALOXONE 0.4 MG/ML 1 ML VIAL IV PRN (20:21)
[2023-08-31] MEDS ORDERED: ACETAMINOPHEN TAB 325 MG TAB PO PRN (20:21)
[2023-08-31] MEDS: MECLIZINE 12.5 MG TAB PO STA (21:19)
[2023-08-31] MEDS: SODIUM CHLORIDE 0.9% 1,000 ML IV SCH (21:20)
[2023-09-01] MEDS: MORPHINE SULFATE 4 MG/ML SYRINGE IV PRN (02:07)
[2023-09-01] MEDS: HYDROmorphone 1 MG/ML 1 ML SYRINGE IVP STA (03:19)
[2023-09-01] MEDS: APIXABAN 5 MG TAB PO STA (03:20)
[2023-09-01] MEDS ORDERED: tiZANidine 4 MG TAB PO PRN (09:08)
[2023-09-01] MEDS ORDERED: MECLIZINE 25 MG TAB PO PRN (09:08)
[2023-09-01] MEDS ORDERED: ALBUTEROL NEBULIZED 2.5 MG/3 ML INHALATION PRN (09:08)
[2023-09-01] MEDS: LIDOCAINE 4% PATCH TOPICAL SCH (09:57)
[2023-09-01] MEDS: FLUoxetine HCL 20 MG CAP PO SCH (09:59)
[2023-09-01] MEDS: lamoTRIgine 25 MG TAB PO SCH (10:00)
[2023-09-01] MEDS: PANTOPRAZOLE 40 MG TABLET PO SCH (10:00)
[2023-09-01] MEDS: HYDROcodone/APAP 7.5-325MG 1 EACH TAB PO SCH (10:01)
[2023-09-01] MEDS: ALPRAZolam 1 MG TAB PO SCH (10:11)
[2023-09-01 10:20] LABS: Basophils # (A) 0.02 X 10*3/uL (0.00-0.10); Basophils % (A) 0.5 %; Eosinophils # (A) 0.11 X 10*3/uL (0.04-0.35); Eosinophils % (A) 2.5 %; HCT 32.6 % (37.2-46.3); HGB 9.7 g/dL (12.0-15.0); Lymphocytes # (A) 1.33 X 10*3/uL (0.90-5.00); MCH 29.1 pg (27.0-32.0); MCHC 29.8 g/dL (32.0-37.0); MCV 97.9 FL (80.0-97.0); Mean Platelet Volume 12.3 FL (9.5-12.2); Monocytes # (A) 0.47 X 10*3/uL (0.20-1.00); Monocytes % (A) 10.6 %; NRBC Per 100 WBC 0 X 10*3/uL (0.00-0.01); Neutrophils # (A) 2.49 X 10*3/uL (1.80-7.70); Neutrophils % (A) 56.2 %; Platelet Count 261 X 10*3/uL (140-440); RBC 3.33 X 10*6/uL (4.10-5.20); RDW 14.5 % (11.5-14.5); WBC 4.43 X 10*3/uL (4.50-10.00)
[2023-09-01 10:26] LABS: BUN/Creat Ratio 23.33 Ratio (12.00-20.00); Calcium 8.3 mg/dL (8.7-10.3); Carbon Dioxide 23.7 mmol/L (21.6-31.8); Chloride 112 mmol/L (96-109); Glucose 87 mg/dL (70-110); Potassium 4.4 mmol/L (3.5-5.5); Sodium 145 mmol/L (135-145)
--- NOTE | 2023-09-01 10:42 | P.HPIM ---
History of Present Illness H&P Date: 09/01/23 History of present illness; patient 68-year-old lady with past medical history significant for paroxysmal atrial fibrillation on eliquis, hypertension, hyperlipidemia, COPD, gastroesophageal reflux disease, esophageal strictures with ballooning, obstructive sleep apnea not utilizing CPAP, kidney stones, restless leg syndrome, DVT and pulmonary embolism who presented to ER for episodes of dizziness and falling. Patient stated that she has been feeling dizzy for the last few days, patient stated that she does not pass out but feels as if the whole room is spinning around her. Patient has fallen on a couple of occasions. Denies any loss of consciousness. Denies any slurred speech. There is no complaint of facial droop. Denies any weakness of any extremity. There is no complaint of chest pain or shortness of breath. Denies any nausea, vomit abdominal pain. Because of the symptoms, patient came to the ER Initial lab work done in the ER showed WBC 4.2, hemoglobin 9.1, platelet count 279, sodium 142, potassium 4.4, BUN 15, creatinine 0.67, ALT 42, alkaline phosphatase 117 Influenza A not detected Influenza B not detected RSV not detected COVID-19 not detected EKG done in the ER showed heart rate of60, no ST segment elevation or depression seen, no T-wave inversions seen. Chest x-ray done in the ER showed no acute cardiopulmonary process X-ray pelvis showed no acute osseous pathology CT head done showed no acute intracranial process CT cervical, thoracic and lumbar spine stable appearance, no evidence of acute fracture Patient admitted to internal medicine service REVIEW OF SYSTEMS: CONSTITUTIONAL: No fever, no malaise, no fatigue. HEENT: No recent visual problems or hearing problems. Denied any sore throat. CARDIOVASCULAR: No chest pain, orthopnea, PND, no palpitations, no syncope. PULMONARY: No shortness of breath, no cough, no hemoptysis. GASTROINTESTINAL: No diarrhea, no nausea, no vomiting, no abdominal pain. NEUROLOGICAL: As mentioned above HEMATOLOGICAL: Denies any bleeding or petechiae. GENITOURINARY: Denies any burning micturition, frequency, or urgency. MUSCULOSKELETAL/RHEUMATOLOGICAL: Denies any joint pain, swelling, or any muscle pain. ENDOCRINE: Denies any polyuria or polydipsia. The rest of the 14-point review of systems is negative. PHYSICAL EXAMINATION: GENERAL: The patient is alert and oriented x3, not in any acute distress. Well developed, well nourished. HEENT: Pupils are round and equally reacting to light. EOMI. No scleral icterus. No conjunctival pallor. Normocephalic, atraumatic. No pharyngeal erythema. No thyromegaly. CARDIOVASCULAR: S1 and S2 present. No murmurs, rubs, or gallops. PULMONARY: Chest is clear to auscultation, no wheezing or crackles. ABDOMEN: Soft, nontender, nondistended, normoactive bowel sounds. No palpable organomegaly. MUSCULOSKELETAL: No joint swelling or deformity. EXTREMITIES: No cyanosis, clubbing, or pedal edema. NEUROLOGICAL: Gross neurological examination did not reveal any focal deficits. SKIN: No rashes. Assessment and plan Dizziness hypertension and hypertensive cardiovascular disease Paroxysmal atrial fibrillation Gastroesophageal reflux disease Hyperlipidemia. History of pulmonary embolism and DVT Obstructive sleep apnea. weght loss, not using her CPAP COPD. Anxiety disoder. Allergic rhinitis. Monitor vital signs Monitor CBC Monitor CMP Continue telemetry monitoring Avoid hypotension Fall precautions Ordered ultrasound of carotids Resume home meds Consult neurology Consult cardiology Labs and medication were reviewed.. Continue same treatment. Continue with symptomatic treatment. Resume home medication. Monitor labs and vitals. DVT and GI prophylaxis. Further recommendations as per clinical course of the patient Dictation was produced using [employer] dictation software. please excuse any grammatical, word or spelling errors. Past Medical History Past Medical History: Atrial Fibrillation, Asthma, Cancer, Heart Failure, COPD, Dementia, Deep Vein Thrombosis (DVT), Fibromyalgia, GERD/Reflux, GI Bleed, Hyperlipidemia, Memory Impairment, Myocardial Infarction ([place]), Osteoarthritis (OA), Pneumonia, Pulmonary Embolus (PE), Sleep Apnea/CPAP/BIPAP Additional Past Medical History / Comment(s): had pneumonia fall 2020, skin cancer with removals, pt states she had a [place] in 2016, hypotension, dementia/memory issues d/t of daughter, esophageal strictures w/ballooning , diverticular disease, anemia, RLS, kidney stones, sinus problems, LORIE-not using CPAP, fx. ribs & was adm. & found to have bad gallbladder, hx. of lung nodules-had lavage, PE's & DVT-unsure of cause, takes metoprolol for a-fib, fell and fx. right wrist-has half cast/splint Last Myocardial Infarction Date:: 2015 History of Any Multi-Drug Resistant Organisms: None Reported Past Surgical History: Adenoidectomy, Appendectomy, Bariatric Surgery, Breast Surgery, Cholecystectomy, Hernia Repair, Hysterectomy, Joint Replacement, Tonsillectomy Additional Past Surgical History / Comment(s): R breast bx. x2, 3 umbilical hernia repairs, lithotripsies, gastric bypass, L chao benign tumor, multiple skin bx/skin cancer removals, EGD/dilations and colonoscopies. rt hip replacement Past Anesthesia/Blood Transfusion Reactions: Previous Problems w/ Anesthesia Additional Past Anesthesia/Blood Transfusion Reaction / Comment(s): bp dips low, tends to bleed alot w/surgeries, no problems w/blood transfusions Past Psychological History: Anxiety, Depression Smoking Status: Never smoker Past Alcohol Use History: None Reported Past Drug Use History: None Reported - Past Family History Brother(s) Family Medical History: Cancer Additional Family Medical History / Comment(s): Psychiatric history also runs in the patient's family. The patient's daughter has committed suicide. The patient's brother and sister and mother all of cancers. Apparently rest cancer and esophageal cancer and pancreatic cancer runs in family unable to give detailed history on that. Sister(s) Family Medical History: Cancer Father Family Medical History: Cancer Additional Family Medical History / Comment(s): Father had lung cancer. Mother Family Medical History: Cancer Additional Family Medical History / Comment(s): Mother had pancreatic cancer. Medications and Allergies Home Medications Medication Instructions Recorded Confirmed Type ALPRAZolam [Xanax] 2 mg PO TID 12/14/13 08/31/23 History FLUoxetine HCL [PROzac] 40 mg PO BID 12/14/13 08/31/23 History Fluticasone/Vilanterol [Breo 1 puff INHALATION RT-DAILY 05/15/18 08/31/23 History Ellipta 200-25 Mcg Inhaler] Apixaban [Eliquis] 5 mg PO BID 30 Days #60 tab 02/05/19 08/31/23 Rx Albuterol Sulfate [Ventolin HFA] 2 puff INHALATION RT-Q6H PRN 12/09/19 08/31/23 History Atorvastatin [Lipitor] 10 mg PO HS 12/09/19 08/31/23 History Omeprazole 20 mg PO AC-BID 12/10/20 08/31/23 History Montelukast [Singulair] 10 mg PO HS 11/19/21 08/31/23 History Ondansetron Odt [Zofran ODT] 4 mg PO Q8H PRN 11/19/21 08/31/23 History QUEtiapine [SEROquel] 100 mg PO HS 08/13/22 08/31/23 History Dextroamphetamine/Amphetamine 20 mg PO BID@0800,1500 10/27/22 08/31/23 History [Adderall] Meclizine [Antivert] 25 mg PO BID PRN tab 10/30/22 08/31/23 Rx Nitroglycerin Sl Tabs [Nitrostat] 0.4 mg SL Q5M PRN 12/24/22 08/31/23 History Metoprolol Succinate (ER) [Toprol 12.5 mg PO HS #30 tab 02/23/23 08/31/23 Rx XL] tiZANidine [Zanaflex] 2 mg PO Q6HR PRN #30 tab 08/27/23 08/31/23 Rx Azithromycin [Zithromax] 500 mg PO DAILY 08/31/23 08/31/23 History HYDROcodone/APAP 7.5-325MG [[place] 1 tab PO Q6H 08/31/23 08/31/23 History 7.5-325] Lidocaine 5% Patch [Lidoderm 5% 1 patch TOPICAL DAILY 08/31/23 08/31/23 History Patch] QUEtiapine [SEROquel] 25 mg PO BID@0800,1500 08/31/23 08/31/23 History lamoTRIgine [lamoTRIgine ER] 50 mg PO DAILY 08/31/23 08/31/23 History Allergies Allergy/AdvReac Type Severity Reaction Status Date / Time adhesive tape AdvReac Skin Verified 08/31/23 21:37 Tearing Physical Exam Vitals: Vital Signs Temp Pulse Resp BP Pulse Ox 09/01/23 07:19 97.1 F L 66 18 97/61 95 09/01/23 03:31 98.2 F 67 14 107/63 97 08/31/23 20:25 61 16 111/76 98 08/31/23 16:14 98.6 F 62 16 99/67 97 Intake and Output 02/23/24 02/24/24 02/24/24 22:59 06:59 14:59 Other: Weight 86.183 kg Results CBC & Chem 7: 09/01/23 05:19 09/01/23 05:19 Labs: Abnormal Lab Results - Last 24 Hours (Table) 08/31/23 08/31/23 Range/Units 17:06 17:06 RBC 3.76 L (3.80-5.40) m/uL Hgb 11.1 L (11.4-16.0) gm/dL Chloride 110 H (98-107) mmol/L ALT 42 H (4-34) U/L Total Protein 5.6 L (6.3-8.2) g/dL Albumin 3.2 L (3.5-5.0) g/dL
--- NOTE | 2023-09-01 11:18 | US ---
EXAMINATION TYPE: US carotid duplex BILAT DATE OF EXAM: 09/01/2023 COMPARISON: NONE CLINICAL INDICATION: Female, 68 years old with history of Dizziness; TECHNIQUE: Carotid duplex ultrasound examination. Indirect Doppler criteria was utilized. FINDINGS: EXAM MEASUREMENTS: RIGHT: Peak Systolic Velocity (PSV) cm/sec ----- Right CCA: 74.5 ----- Right ICA: 107.2 ----- Right ECA: 103.6 ICA/CCA ratio: 1.4 RIGHT: End Diastole cm/sec ----- Right CCA: 15.0 ----- Right ICA: 26.2 ----- Right ECA: 14.9 LEFT: Peak Systolic Velocity (PSV) cm/sec ----- Left CCA: 96.5 ----- Left ICA: 103.0 ----- Left ECA: 89.8 ICA/CCA ratio: 1.1 LEFT: End Diastole cm/sec ----- Left CCA: 21.5 ----- Left ICA: 21.5 ----- Left ECA: 12.6 VERTEBRALS (direction of flow): Right Vertebral: Antegrade Left Vertebral: Antegrade Rhythm: Normal DENTAL AMALGAM PROCESSOR NOTES: IMPRESSION: Less than 50% stenosis of the bilateral carotid bifurcations. Criteria for Assigning % of Stenosis / Diameter reduction (Estimation based on the indirect measurements of the internal carotid artery velocities (ICA PSV). 1. Normal (no stenosis)=ICA PSV < 125 cm/s: ratio < 2.0: ICA EDV<40 cm/s. 2. Less than 50% stenosis=ICA PSV < 125 cm/s: ratio < 2.0: ICA EDV<40 cm/s. 3. 50 to 69% stenosis=ICA PSV of 125 to 230 cm/s: ration 2.0 ? 4.0: ICA EDV 40-100 cm/s. 4. Greater than 70% stenosis to near occlusion= ICA PSV > 230 cm/s: ratio > 4.0: ICA EDV > 100 cm/s. 5. Near occlusion= ICA PSV velocities may be low or undetectable: variable ratio and ICA EDV. 6. Total occlusion=unable to detect flow.
[2023-09-01] MEDS: NON FORMULARY DRUG (Dextroamphetamine/Amphetamine [Adderall] 20 MG Tablet) PO SCH (15:29)
--- NOTE | 2023-09-01 16:12 | P.CNNES ---
History of Present Illness Consult date: 09/01/23 Reason for Consult: Dizziness, vertigo, falls History of Present Illness: The patient is a 68-year-old female who was seen in neurologic consultation on September 01, 2023, in collaboration with Amanda Hilario, via teleneurology. The patient reports that she has been having difficulty with lightheadedness as well as a spinning sensation. She says that she has been following frequently. She reports having "5 compression fractures in my spine and 3 rib fractures". She says the rib fractures occur a few days ago when she fell. She reports that her symptoms began approximately 2 months ago with sudden onset of vertigo. She says she was standing when this occurred and it happened so quickly that she went down to the floor. She notices that she is unable to move quickly either from standing to sitting or sitting to standing. She reports she has a diagnosis of orthostatic hypotension. She says that she checks her blood pressure 3 times daily at home. She says most often her blood pressure is "60/40". She says that her metoprolol dose has been diminished to one quarter of his original dose. Apparently 2 months ago, the patient had to identify the body of her daughter, who had committed suicide. Since that time, the patient reports that she has been having difficulty with walking or talking memory and passing out. She also reports a tremendous headache today, she denies difficulty with hand coordination. She reports paresthesias in the left arm and low back. She reports a history of GERD and resultant difficulty swallowing. Patient has a history of atrial fibrillation. The patient denies loss of bowel or bladder control. In the emergency department, CT scan of the brain was performed. There is no reported evidence of acute hemorrhage or infarct. Chest x-ray was performed. There is no reported rib fractures. X-ray of the cervical and thoracic spine reveals no evidence of fracture. The patient has a past medical history significant for paroxysmal atrial fibrillation on eliquis, hypertension, hyperlipidemia, COPD, gastroesophageal reflux disease, esophageal strictures with ballooning, obstructive sleep apnea not utilizing CPAP, kidney stones, restless leg syndrome, DVT and pulmonary embolism. Past Medical History Past Medical History: Atrial Fibrillation, Asthma, Cancer, Heart Failure, COPD, Dementia, Deep Vein Thrombosis (DVT), Fibromyalgia, GERD/Reflux, GI Bleed, Hyperlipidemia, Memory Impairment, Myocardial Infarction ([place]), Osteoarthritis (OA), Pneumonia, Pulmonary Embolus (PE), Sleep Apnea/CPAP/BIPAP Additional Past Medical History / Comment(s): had pneumonia fall 2020, skin cancer with removals, pt states she had a [place] in 2015, hypotension, dementia/memory issues d/t of daughter, esophageal strictures w/ball ooning, diverticular disease, anemia, RLS, kidney stones, sinus problems, LORIE- not using CPAP, fx. ribs & was adm. & found to have bad gallbladder, hx. of lung nodules-had lavage, PE's & DVT-unsure of cause, takes metoprolol for a-fib, fell and fx. right wrist-has half cast/splint Last Myocardial Infarction Date:: 2015 History of Any Multi-Drug Resistant Organisms: None Reported Past Surgical History: Adenoidectomy, Appendectomy, Bariatric Surgery, Breast Surgery, Cholecystectomy, Hernia Repair, Hysterectomy, Joint Replacement, Tonsillectomy Additional Past Surgical History / Comment(s): R breast bx. x2, 3 umbilical hernia repairs, lithotripsies, gastric bypass, L chao benign tumor, multiple skin bx/skin cancer removals, EGD/dilations and colonoscopies. rt hip replacement Past Anesthesia/Blood Transfusion Reactions: Previous Problems w/ Anesthesia Additional Past Anesthesia/Blood Transfusion Reaction / Comment(s): bp dips low, tends to bleed alot w/surgeries, no problems w/blood transfusions Past Psychological History: Anxiety, Depression Smoking Status: Never smoker Past Alcohol Use History: None Reported Past Drug Use History: None Reported - Past Family History Brother(s) Family Medical History: Cancer Additional Family Medical History / Comment(s): Psychiatric history also runs in the patient's family. The patient's daughter has committed suicide. The patient's brother and sister and mother all of cancers. Apparently rest cancer and esophageal cancer and pancreatic cancer runs in family unable to give detailed history on that. Sister(s) Family Medical History: Cancer Father Family Medical History: Cancer Additional Family Medical History / Comment(s): Father had lung cancer. Mother Family Medical History: Cancer Additional Family Medical History / Comment(s): Mother had pancreatic cancer. Medications and Allergies Home Medications Medication Instructions Recorded Confirmed Type ALPRAZolam [Xanax] 2 mg PO TID 12/14/13 08/31/23 History FLUoxetine HCL [PROzac] 40 mg PO BID 12/14/13 08/31/23 History Fluticasone/Vilanterol [Breo 1 puff INHALATION RT-DAILY 05/15/18 08/31/23 History Ellipta 200-25 Mcg Inhaler] Apixaban [Eliquis] 5 mg PO BID 30 Days #60 tab 02/05/19 08/31/23 Rx Albuterol Sulfate [Ventolin HFA] 2 puff INHALATION RT-Q6H PRN 12/09/19 08/31/23 History Atorvastatin [Lipitor] 10 mg PO HS 12/09/19 08/31/23 History Omeprazole 20 mg PO AC-BID 12/10/20 08/31/23 History Montelukast [Singulair] 10 mg PO HS 11/19/21 08/31/23 History Ondansetron Odt [Zofran ODT] 4 mg PO Q8H PRN 11/19/21 08/31/23 History QUEtiapine [SEROquel] 100 mg PO HS 08/13/22 08/31/23 History Dextroamphetamine/Amphetamine 20 mg PO BID@0800,1500 10/27/22 08/31/23 History [Adderall] Meclizine [Antivert] 25 mg PO BID PRN tab 10/30/22 08/31/23 Rx Nitroglycerin Sl Tabs [Nitrostat] 0.4 mg SL Q5M PRN 12/24/22 08/31/23 History Metoprolol Succinate (ER) [Toprol 12.5 mg PO HS #30 tab 02/23/23 08/31/23 Rx XL] tiZANidine [Zanaflex] 2 mg PO Q6HR PRN #30 tab 08/27/23 08/31/23 Rx Azithromycin [Zithromax] 500 mg PO DAILY 08/31/23 08/31/23 History HYDROcodone/APAP 7.5-325MG [[place] 1 tab PO Q6H 08/31/23 08/31/23 History 7.5-325] Lidocaine 5% Patch [Lidoderm 5% 1 patch TOPICAL DAILY 08/31/23 08/31/23 History Patch] QUEtiapine [SEROquel] 25 mg PO BID@0800,1500 08/31/23 08/31/23 History lamoTRIgine [lamoTRIgine ER] 50 mg PO DAILY 08/31/23 08/31/23 History Allergies Allergy/AdvReac Type Severity Reaction Status Date / Time adhesive tape AdvReac Skin Verified 08/31/23 21:37 Tearing Physical Examination - Vital Signs Vital Signs: Vital Signs Temp Pulse Resp BP Pulse Ox 09/01/23 07:19 97.1 F L 66 18 97/61 95 09/01/23 03:31 98.2 F 67 14 107/63 97 08/31/23 20:25 61 16 111/76 98 08/31/23 16:14 98.6 F 62 16 99/67 97 Intake and Output 08/31/23 09/01/23 09/01/23 22:59 06:59 14:59 Other: Weight 86.183 kg General: The patient is reclining in the bed. He is well-nourished. He is well-developed. He is in no acute distress HEENT: Head is atraumatic, normocephalic. Fundus not visualized. There is no scleral icterus. Mucous membranes are moist. Neck: Neck supple without carotid bruits Heart: Regular rate and rhythm without murmur Lungs: Essentially clear to auscultation Extremities: There is edema of the bilateral lower extremities and upper extremities. The patient's feet are extremely dirty. Neurological examination Mental status: The patient awake, alert and oriented x 3. His speech is clear. There is no dysarthria or aphasia. The patient is tearful. Cranial nerves: Pupils are equal at 4 mm, round and reactive to light. Visual vaughn are full to confrontation. Extraocular movements are intact. There is no nystagmus. Facial sensation is intact. There is no facial asymmetry. Hearing is grossly intact. Uvula and palate are midline. Shoulder shrug is symmetric. Tongue protrudes midline. Motor: Strength is 5/5 in the left upper extremity. Right upper extremity strength 3/5. Bilateral hip flexors 3/5. Bilateral ankle plantar and dorsiflexors 4/5. Sensation: The patient reports decreased sensation to light touch in the left arm and right chao. There is no extinction with double simultaneous stimulation. Proprioception is intact at the great toes bilaterally Deep tendon reflexes: 3+/4+ throughout. Plantar responses are flexor bilaterally Coordination: [id number], rapid alternating movements and [id number] testing is intact. Gait: Not assessed at this time Orthostatic vitals were assessed prior to her entry to the room: Supine blood pressure 101/67 with a heart rate of 68. Seated blood pressure 108/71 with a heart rate of 64. Standing blood pressure 100/68 with a heart rate of 72. Results - Laboratory Findings CBC and BMP: 09/01/23 05:19 09/01/23 05:19 Abnormal Lab Findings: Abnormal Labs 08/31/23 08/31/23 17:06 17:06 RBC 3.76 L Hgb 11.1 L Chloride 110 H ALT 42 H Total Protein 5.6 L Albumin 3.2 L - Diagnostic Findings Comments: CT scan of the brain images have been personally reviewed. I agree with the report. Assessment and Plan Assessment: 1. Lightheadedness, dizziness and falls, with reported history of orthostatic hypotension 2. History of atrial fibrillation 3. History of hypertension 4. Anxiety and depression Plan: 1. Continue to check orthostatic vitals 2. Avoid hypotension, may consider lowering or discontinuing antihypertensive medications 3. Agree with carotid Dopplers 4. 2D echocardiogram may be beneficial 5. Physical therapy evaluation for balance and walking Time with Patient: Greater than 30 (60 minutes were spent caring for this pat ient today including, obtaining history, examining the patient, reviewing imaging, chart documentation, labs, placing orders and creating this note)
[2023-09-01] MEDS: QUEtiapine 25 MG TAB PO SCH (18:02)
[2023-09-01] MEDS: METOPROLOL SUCCINATE (ER) 25 MG TAB.ER.24H PO SCH (22:14)
[2023-09-01] MEDS: QUEtiapine 100 MG TAB PO SCH (22:14)
[2023-09-01] MEDS: MONTELUKAST 10 MG TAB PO SCH (22:14)
[2023-09-01] MEDS: ATORVASTATIN 10 MG TAB PO SCH (22:14)
[2023-09-01] MEDS: APIXABAN 5 MG TAB PO SCH (22:14)
[2023-09-02] MEDS: ONDANSETRON ODT 4 MG TAB PO PRN (06:01)
[2023-09-02 07:54] LABS: Basophils % (A) 1 %; Eosinophils # (A) 0.1 k/uL (0-0.7); Eosinophils % (A) 3 %; HCT 32.3 % (34.0-46.0); HGB 10.1 gm/dL (11.4-16.0); Hypochromasia Moderate; Lymphocytes # (A) 0.9 k/uL (1.0-4.8); Lymphocytes % (A) 23 %; MCH 29.9 pg (25.0-35.0); MCHC 31.4 g/dL (31.0-37.0); MCV 95.1 fL (80.0-100.0); Mean Platelet Volume 9.2; Monocytes # (A) 0.3 k/uL (0-1.0); Monocytes % (A) 7 %; Neutrophils # (A) 2.6 k/uL (1.3-7.7); Neutrophils % (A) 66 %; Platelet Count 203 k/uL (150-450); RBC 3.39 m/uL (3.80-5.40); RDW 14.1 % (11.5-15.5); WBC 3.9 k/uL (3.8-10.6)
[2023-09-02 08:05] LABS: ALT 28 U/L (4-34); AST 28 U/L (14-36); African American GFR (CKD) >90 (>60 ml/min/1.73 sqM); Albumin 2.4 g/dL (3.5-5.0); Albumin/Globulin Ratio 1.1; Alkaline Phosphatase 100 U/L (38-126); Anion Gap 0 mmol/L; Blood Urea Nitrogen 13 mg/dL (7-17); Calcium 7.8 mg/dL (8.4-10.2); Carbon Dioxide 28 mmol/L (22-30); Chloride 111 mmol/L (98-107); Globulin 2.2 g/dL; Glucose 95 mg/dL (74-99); Non-African American GFR(CKD) >90 (>60 ml/min/1.73 sqM); Sodium 139 mmol/L (137-145); Total Bilirubin 0.4 mg/dL (0.2-1.3); Total Protein 4.6 g/dL (6.3-8.2)
[2023-09-02] MEDS: SYMBICORT 160-4.5 MCG INHALER INHALATION SCH (09:09)
[2023-09-02] MEDS ORDERED: HYDROcodone/APAP 7.5-325MG 1 EACH TAB PO PRN (11:31)
--- NOTE | 2023-09-02 12:25 | P.PN ---
Subjective Progress Note Date: 09/02/23 patient 68-year-old lady with past medical history significant for paroxysmal atrial fibrillation on eliquis, hypertension, hyperlipidemia, COPD, gastroesophageal reflux disease, esophageal strictures with ballooning, obstructive sleep apnea not utilizing CPAP, kidney stones, restless leg syndrome, DVT and pulmonary embolism who presented to ER for episodes of dizziness and falling. Patient stated that she has been feeling dizzy for the last few days, patient stated that she does not pass out but feels as if the whole room is spinning around her. Patient has fallen on a couple of occasions. Denies any loss of consciousness. Denies any slurred speech. There is no complaint of facial droop. Denies any weakness of any extremity. There is no complaint of chest pain or shortness of breath. Denies any nausea, vomit abdominal pain. Because of the symptoms, patient came to the ER Initial lab work done in the ER showed WBC 4.2, hemoglobin 9.1, platelet count 279, sodium 142, potassium 4.4, BUN 15, creatinine 0.67, ALT 42, alkaline phosphatase 117 Influenza A not detected Influenza B not detected RSV not detected COVID-19 not detected EKG done in the ER showed heart rate of60, no ST segment elevation or depression seen, no T-wave inversions seen. Chest x-ray done in the ER showed no acute cardiopulmonary process X-ray pelvis showed no acute osseous pathology CT head done showed no acute intracranial process CT cervical, thoracic and lumbar spine stable appearance, no evidence of acute fracture Patient admitted to internal medicine service 09/02. Patient seen and examined. Labs done this morning showed sodium 139, potassium 4, BUN 13, creatinine 0.56, WBC 3.9, hemoglobin 10.1, platelet count 203. Ultrasound carotids done showed less than 50% stenosis of bilateral carotid bifurcations. Complaining of back pain. Denies any nausea or vomiting. Denies any dizziness REVIEW OF SYSTEMS: CONSTITUTIONAL: No fever, no malaise,. CARDIOVASCULAR: No chest pain, no palpitations, no syncope. PULMONARY: No shortness of breath, no cough, GASTROINTESTINAL: No diarrhea, no nausea, no vomiting, no abdominal pain. NEUROLOGICAL: No headaches, no weakness, PHYSICAL EXAMINATION: GENERAL: The patient is alert and oriented x3, not in any acute distress. Well developed, well nourished. HEENT: Pupils are round and equally reacting to light. EOMI. No scleral icterus. No conjunctival pallor. Normocephalic, atraumatic. No pharyngeal erythema. No thyromegaly. CARDIOVASCULAR: S1 and S2 present. No murmurs, rubs, or gallops. PULMONARY: Chest is clear to auscultation, no wheezing or crackles. ABDOMEN: Soft, nontender, nondistended, normoactive bowel sounds. No palpable organomegaly. MUSCULOSKELETAL: No joint swelling or deformity. EXTREMITIES: No cyanosis, clubbing, or pedal edema. NEUROLOGICAL: Gross neurological examination did not reveal any focal deficits. SKIN: No rashes. Assessment and plan Dizziness hypertension and hypertensive cardiovascular disease Paroxysmal atrial fibrillation Gastroesophageal reflux disease Hyperlipidemia. History of pulmonary embolism and DVT Obstructive sleep apnea. weght loss, not using her CPAP COPD. Anxiety disoder. Allergic rhinitis. Monitor vital signs Monitor CBC Monitor CMP Continue telemetry monitoring Avoid hypotension Fall precautions Ultrasound carotids done showed less than 50% stenosis of bilateral carotid bifurcations Continue home meds Neurology following, recommended checking orthostatics and avoiding antihypertensives. Cardiology consulted, Labs and medication were reviewed.. Continue same treatment. Continue with symptomatic treatment. Resume home medication. Monitor labs and vitals. DVT and GI prophylaxis. Further recommendations as per clinical course of the patient Dictation was produced using [employer] dictation software. please excuse any grammatical, word or spelling errors. Objective - Vital Signs Vital signs: Vital Signs Temp 98.2 F 09/02/23 07:00 Pulse 65 09/02/23 07:00 Resp 18 09/02/23 07:00 BP 93/57 09/02/23 07:00 Pulse Ox 95 09/02/23 07:00 FiO2 Intake & Output 09/01/23 09/02/23 09/02/23 18:59 06:59 18:59 Weight 86.183 kg Other: # Voids 1 - Labs CBC & Chem 7: 09/02/23 07:38 09/02/23 07:38 Labs: Abnormal Lab Results - Last 24 Hours (Table) 09/01/23 09/01/23 09/02/23 Range/Units 05:19 05:19 07:38 WBC 4.43 L (4.50-10.00) X 10*3/uL RBC 3.33 L 3.39 L (4.10-5.20) X 10*6/uL Hgb 9.7 L 10.1 L (12.0-15.0) g/dL Hct 32.6 L 32.3 L (37.2-46.3) % MCV 97.9 H (80.0-97.0) FL MCHC 29.8 L (32.0-37.0) g/dL MPV 12.3 H (9.5-12.2) FL Lymphocytes # 0.9 L (1.0-4.8) k/uL Chloride 112 H (96-109) mmol/L BUN/Creatinine Ratio 23.33 H (12.00-20.00) Ratio Calcium 8.3 L (8.7-10.3) mg/dL Total Protein (6.3-8.2) g/dL Albumin (3.5-5.0) g/dL 09/02/23 Range/Units 07:38 WBC (4.50-10.00) X 10*3/uL RBC (4.10-5.20) X 10*6/uL Hgb (12.0-15.0) g/dL Hct (37.2-46.3) % MCV (80.0-97.0) FL MCHC (32.0-37.0) g/dL MPV (9.5-12.2) FL Lymphocytes # (1.0-4.8) k/uL Chloride 111 H (96-109) mmol/L BUN/Creatinine Ratio (12.00-20.00) Ratio Calcium 7.8 L (8.7-10.3) mg/dL Total Protein 4.6 L (6.3-8.2) g/dL Albumin 2.4 L (3.5-5.0) g/dL
--- NOTE | 2023-09-02 13:58 | P.CRDCN ---
History of Present Illness Consult date: 09/02/23 Consult reason: sycope History of present illness: The patient is a 68-year-old female who follows in the office with Dr. Wei. She has known history of paroxysmal atrial fibrillation. The patient is experiencing recurrent syncopal episodes. Her most recent episode she states that she did feel lightheaded prior and had a flushed sensation. Other times that she has felt nauseous with associated chest tightness. The patient states she is always standing when these episodes occur and most recently she was in her bathroom and was unconscious for approximately several minutes. She believes she was unconscious when EMS arrived. In the past the patient states she has taken nitroglycerin for these episodes. DIAGNOSTICS: EKG shows sinus mechanism without ST or T wave abnormalities Chest x-ray shows no acute cardiopulmonary process CT scan of the brain shows no acute intracranial process Carotid Doppler shows no significant disease Lab data: WBC 3.9, hemoglobin 10.1, hematocrit 32.3, platelet 203, sodium 139, potassium 4.0, BUN 13, creatinine 0.56, AST 28, ALT 28, ALP 100 REVIEW OF SYSTEMS: No fever or chills. No cough or expectoration. No diaphoresis. Patient denies headache, dizziness, blurred vision, double vision. Patient denies any stomach discomfort. No nausea, vomiting. No hematochezia. No hematemesis. Denies any black stools or blood in his stools. Denies dysuria or hematuria. No muscle weakness or numbness. No current dizziness or lightheadedness. No chest pain or difficulty breathing. PHYSICAL EXAMINATION: This is a 68-year-old female in no apparent distress at the time of my examination. HEENT: Head is atraumatic, normocephalic. Pupils are equal, round. Sclerae anicteric. Conjunctivae are clear. Mucous membranes of the mouth are moist. Neck is supple. There is no jugular venous distention. No carotid bruit is heard. CHEST EXAMINATION: Lungs are clear to auscultation. No chest wall tenderness is noted on palpation or with deep breathing. HEART EXAMINATION: Heart regular rate and rhythm. S1, S2 heard. No murmurs, gallops or rub. ABDOMEN: Soft, nontender. Bowel sounds are heard. No organomegaly noted. EXTREMITIES: 2+ peripheral pulses with no evidence of peripheral edema and no calf tenderness noted. NEUROLOGIC EXAMINATION: Patient is awake, alert and oriented x3. FINAL ASSESSMENT AND PLAN: Recurrent syncope Borderline hypotension History of paroxysmal atrial fibrillation PLAN: Discontinue Adderall Proceed with tilt table testing Event monitor outpatient to monitor for A-fib burden Follow-up with Dr. Martinez thereafter I am dictating on behalf of Dr Oscar Art's history/physical and assessment/plan. Past Medical History Past Medical History: Atrial Fibrillation, Asthma, Cancer, Heart Failure, COPD, Dementia, Deep Vein Thrombosis (DVT), Fibromyalgia, GERD/Reflux, GI Bleed, Hyperlipidemia, Memory Impairment, Myocardial Infarction (MT), Osteoarthritis (OA), Pneumonia, Pulmonary Embolus (PE), Sleep Apnea/CPAP/BIPAP Additional Past Medical History / Comment(s): had pneumonia fall 2020, skin cancer with removals, pt states she had a MT in 2015, hypotension, dementia/memory issues d/t of daughter, esophageal strictures w/ballooning, diverticular disease, anemia, RLS, kidney stones, sinus problems, LORIE-not using CPAP, fx. ribs & was adm. & found to have bad gallbladder, hx. of lung nodules-had lavage, PE's & DVT-unsure of cause, takes metoprolol for a-fib, fell and fx. right wrist-has half cast/splint Last Myocardial Infarction Date:: 2015 History of Any Multi-Drug Resistant Organisms: None Reported Past Surgical History: Adenoidectomy, Appendectomy, Bariatric Surgery, Breast Surgery, Cholecystectomy, Hernia Repair, Hysterectomy, Joint Replacement, Tonsillectomy Additional Past Surgical History / Comment(s): R breast bx. x2, 3 umbilical hernia repairs, lithotripsies, gastric bypass, L chao benign tumor, multiple skin bx/skin cancer removals, EGD/dilations and colonoscopies. rt hip replace ment, rt wrist orif Past Anesthesia/Blood Transfusion Reactions: Previous Problems w/ Anesthesia Additional Past Anesthesia/Blood Transfusion Reaction / Comment(s): bp dips low, tends to bleed alot w/surgeries, no problems w/blood transfusions Past Psychological History: Anxiety, Depression Additional Psychological History / Comment(s): Pt resides with her spouse and their daughter and 1 grand children. She is independent. Pt. states her daughter of suicide 2009, OCD Smoking Status: Never smoker Past Alcohol Use History: None Reported Past Drug Use History: None Reported - Past Family History Brother(s) Family Medical History: Cancer Additional Family Medical History / Comment(s): Psychiatric history also runs in the patient's family. The patient's daughter has committed suicide. The patient's brother and sister and mother all of cancers. Apparently rest cancer and esophageal cancer and pancreatic cancer runs in family unable to give detailed history on that. Sister(s) Family Medical History: Cancer Father Family Medical History: Myocardial Infarction (MT) Additional Family Medical History / Comment(s): Father had lung cancer. Mother Family Medical History: Cancer Additional Family Medical History / Comment(s): Mother had pancreatic cancer. Medications and Allergies Home Medications Medication Instructions Recorded Confirmed Type ALPRAZolam [Xanax] 2 mg PO TID 12/14/13 08/31/23 History FLUoxetine HCL [PROzac] 40 mg PO BID 12/14/13 08/31/23 History Fluticasone/Vilanterol [Breo 1 puff INHALATION RT-DAILY 05/15/18 08/31/23 History Ellipta 200-25 Mcg Inhaler] Apixaban [Eliquis] 5 mg PO BID 30 Days #60 tab 02/05/19 08/31/23 Rx Albuterol Sulfate [Ventolin HFA] 2 puff INHALATION RT-Q6H PRN 12/09/19 08/31/23 History Atorvastatin [Lipitor] 10 mg PO HS 12/09/19 08/31/23 History Omeprazole 20 mg PO AC-BID 12/10/20 08/31/23 History Montelukast [Singulair] 10 mg PO HS 11/19/21 08/31/23 History Ondansetron Odt [Zofran ODT] 4 mg PO Q8H PRN 11/19/21 08/31/23 History QUEtiapine [SEROquel] 100 mg PO HS 08/13/22 08/31/23 History Dextroamphetamine/Amphetamine 20 mg PO BID@0800,1500 10/27/22 08/31/23 History [Adderall] Meclizine [Antivert] 25 mg PO BID PRN tab 10/30/22 08/31/23 Rx Nitroglycerin Sl Tabs [Nitrostat] 0.4 mg SL Q5M PRN 12/24/22 08/31/23 History Metoprolol Succinate (ER) [Toprol 12.5 mg PO HS #30 tab 02/23/23 08/31/23 Rx XL] tiZANidine [Zanaflex] 2 mg PO Q6HR PRN #30 tab 08/27/23 08/31/23 Rx Azithromycin [Zithromax] 500 mg PO DAILY 08/31/23 08/31/23 History HYDROcodone/APAP 7.5-325MG [Lyons 1 tab PO Q6H 08/31/23 08/31/23 History 7.5-325] Lidocaine 5% Patch [Lidoderm 5% 1 patch TOPICAL DAILY 08/31/23 08/31/23 History Patch] QUEtiapine [SEROquel] 25 mg PO BID@0800,1500 08/31/23 08/31/23 History lamoTRIgine [lamoTRIgine ER] 50 mg PO DAILY 08/31/23 08/31/23 History Allergies Allergy/AdvReac Type Severity Reaction Status Date / Time adhesive tape AdvReac Skin Verified 08/31/23 21:37 Tearing Physical Exam Vitals: Vital Signs Temp Pulse Pulse Pulse Pulse Resp BP 09/02/23 09:45 18 09/02/23 07:00 98.2 F 65 76 80 65 18 09/02/23 01:52 97.7 F 65 16 09/01/23 23:32 60 09/01/23 22:24 74 09/01/23 22:17 74 09/01/23 19:32 98.1 F 72 82 64 16 09/01/23 15:00 98.4 F 61 16 95/55 BP BP BP Pulse Ox 09/02/23 09:45 09/02/23 07:00 97/62 105/69 93/57 95 09/02/23 01:52 91/50 93 L 09/01/23 23:32 96/57 97 09/01/23 22:24 09/01/23 22:17 104/62 95 09/01/23 19:32 104/66 98/63 90/53 97 09/01/23 15:00 96 Intake and Output 09/01/23 09/02/23 09/02/23 22:59 06:59 14:59 Intake Total 90 Balance 90 Intake: Oral 90 Other: # Voids 1 1 0 Weight 86.183 kg Results 09/02/23 07:38 09/02/23 07:38 Cardiac Enzymes 09/02/23 Range/Units 07:38 AST 28 (14-36) U/L CBC 09/02/23 Range/Units 07:38 WBC 3.9 (3.8-10.6) k/uL RBC 3.39 L (3.80-5.40) m/uL Hgb 10.1 L (11.4-16.0) gm/dL Hct 32.3 L (34.0-46.0) % Plt Count 203 (150-450) k/uL Comprehensive Metabolic Panel 09/02/23 Range/Units 07:38 Sodium 139 (137-145) mmol/L Potassium 4.0 (3.5-5.1) mmol/L Chloride 111 H (98-107) mmol/L Carbon Dioxide 28 (22-30) mmol/L BUN 13 (7-17) mg/dL Creatinine 0.56 (0.52-1.04) mg/dL Glucose 95 (74-99) mg/dL Calcium 7.8 L (8.4-10.2) mg/dL AST 28 (14-36) U/L ALT 28 (4-34) U/L Alkaline Phosphatase 100 (38-126) U/L Total Protein 4.6 L (6.3-8.2) g/dL Albumin 2.4 L (3.5-5.0) g/dL Current Medications Generic Name Dose Route Start Last Admin Trade Name Freq PRN Reason Stop Dose Admin Acetaminophen 650 mg 08/31/23 20:21 Acetaminophen Tab 325 Mg Tab PO Q6HR PRN Mild Pain or Fever > 100.5 Hydrocodone Bitart/Acetaminophen 1 each 09/02/23 11:31 Hydrocodone/Apap 7.5-325mg 1 Each Tab PO Q4H PRN Pain Albuterol Sulfate 2.5 mg 09/01/23 09:08 Albuterol Nebulized 2.5 Mg/3 Ml INHALATION RT-Q6H PRN Shortness Of Breath Alprazolam 2 mg 09/01/23 10:30 09/02/23 09:56 Alprazolam 1 Mg Tab PO 2 mg TID KAREEM Administration Apixaban 5 mg 09/01/23 21:00 09/02/23 09:56 Apixaban 5 Mg Tab PO 5 mg BID KAREEM Administration Protocol Atorvastatin Calcium 10 mg 09/01/23 21:00 09/01/23 22:14 Atorvastatin 10 Mg Tab PO 10 mg HS KAREEM Administration Budesonide/Formoterol Fumarate 2 puff 09/02/23 08:00 09/02/23 09:09 Symbicort 160-4.5 Mcg Inhaler INHALATION 2 puff RT-BID KAREEM Administration Fluoxetine HCl 40 mg 09/01/23 10:00 09/02/23 09:56 Fluoxetine Hcl 20 Mg Cap PO 40 mg BID KAREEM Administration Sodium Chloride 1,000 mls @ 75 mls/hr 08/31/23 20:30 09/02/23 06:02 Saline 0.9% IV 75 mls/hr .[id number] KAREEM Administration Lamotrigine 25 mg 09/01/23 10:00 09/02/23 09:56 Lamotrigine 25 Mg Tab PO 25 mg BID KAREEM Administration Lidocaine 3 patch 09/02/23 12:00 Lidocaine 4% Patch TOPICAL DAILY KAREEM Meclizine HCl 25 mg 09/01/23 09:08 Meclizine 25 Mg Tab PO BID PRN Vertigo Metoprolol Succinate 12.5 mg 09/01/23 21:00 09/01/23 22:14 Metoprolol Succinate (Er) 25 Mg Tab.Er.24h PO 12.5 mg HS KAREEM Administration Montelukast Sodium 10 mg 09/01/23 21:00 09/01/23 22:14 Montelukast 10 Mg Tab PO 10 mg HS KAREEM Administration Morphine Sulfate 4 mg 09/02/23 11:31 Morphine Sulfate 4 Mg/Ml Syringe IV Q6HR PRN Severe Pain (Scale 7 to 10) Naloxone HCl 0.2 mg 08/31/23 20:21 Naloxone 0.4 Mg/Ml 1 Ml Vial IV Q2M PRN Opioid Reversal Ondansetron HCl 4 mg 09/01/23 09:08 09/02/23 06:01 Ondansetron Odt 4 Mg Tab PO 4 mg Q8H PRN Administration Nausea Pantoprazole Sodium 40 mg 09/01/23 10:00 09/02/23 06:01 Pantoprazole 40 Mg Tablet PO 40 mg [id number] KAREEM Administration Quetiapine Fumarate 100 mg 09/01/23 21:00 09/01/23 22:14 Quetiapine 100 Mg Tab PO 100 mg HS KAREEM Administration Quetiapine Fumarate 25 mg 09/01/23 15:00 09/02/23 09:56 Quetiapine 25 Mg Tab PO 25 mg BID@0800,1500 KAREEM Administration Tizanidine HCl 2 mg 09/01/23 09:08 Tizanidine 4 Mg Tab PO Q6HR PRN Muscle Pain Intake and Output 09/01/23 09/02/23 09/02/23 22:59 06:59 14:59 Intake Total 90 Balance 90 Intake: Oral 90 Other: # Voids 1 1 0 Weight 86.183 kg 09/02/23 07:38 09/02/23 07:38
[2023-09-02] MEDS: LIDOCAINE 4% PATCH TOPICAL SCH (14:27)
[2023-09-02] MEDS: MORPHINE SULFATE 4 MG/ML SYRINGE IV PRN (19:28)
[2023-09-03 11:06] LABS: HCT 35.1 % (37.2-46.3); HGB 10.3 g/dL (12.0-15.0); MCH 28.8 pg (27.0-32.0); MCHC 29.3 g/dL (32.0-37.0); Mean Platelet Volume 12.1 FL (9.5-12.2); NRBC Per 100 WBC 0 X 10*3/uL (0.00-0.01); Platelet Count 246 X 10*3/uL (140-440); RBC 3.58 X 10*6/uL (4.10-5.20); RDW 14.4 % (11.5-14.5); WBC 4.27 X 10*3/uL (4.50-10.00)
--- NOTE | 2023-09-03 11:16 | P.PN ---
Subjective HISTORY OF PRESENT ILLNESS: The patient is a 68-year-old female who follows in the office with Dr. Wei. She has known history of paroxysmal atrial fibrillation. The patient is experiencing recurrent syncopal episodes. Her most recent episode she states that she did feel lightheaded prior and had a flushed sensation. Other times that she has felt nauseous with associated chest tightness. The patient states she is always standing when these episodes occur and most recently she was in her bathroom and was unconscious for approximately several minutes. She believes she was unconscious when EMS arrived. In the past the patient states she has taken nitroglycerin for these episodes. DIAGNOSTICS: EKG shows sinus mechanism without ST or T wave abnormalities Chest x-ray shows no acute cardiopulmonary process CT scan of the brain shows no acute intracranial process Carotid Doppler shows no significant disease Lab data: WBC 3.9, hemoglobin 10.1, hematocrit 32.3, platelet 203, sodium 139, potassium 4.0, BUN 13, creatinine 0.56, AST 28, ALT 28, ALP 100 09/03/2023 Patient examined this morning the bedside. Patient denies chest pain or pressure. She denies shortness of breath. Patient is scheduled to undergo tilt table testing today. PHYSICAL EXAM: VITAL SIGNS: Reviewed. GENERAL: Well-developed in no acute distress. NECK: Supple. No JVD or thyromegaly LUNGS: Respirations even and unlabored. Lungs essentially clear to auscultation bilaterally. HEART: Regular rate and rhythm. S1 and S2 heard. EXTREMITIES: Normal range of motion. No clubbing or cyanosis. Peripheral pulses intact. No lower extremity edema ASSESSMENT: Recurrent syncope Borderline hypotension History of paroxysmal atrial fibrillation PLAN: Continue current cardiac medications Adderall has been discontinued Patient to undergo tilt table testing today Will consider event monitor on an outpatient basis Anticipate discharge home this afternoon Patient to follow-up postdischarge with Dr. Martinez Nurse practitioner note has been reviewed by physician. Signing provider agrees with the documented findings, assessment, and plan of care documented by WELLNESS NURSE RN as a scribe. Objective - Vital Signs Vital signs: Vital Signs Temp 98.3 F 09/03/23 07:00 Pulse 80 09/03/23 07:00 Resp 16 09/03/23 07:00 BP 101/65 09/03/23 07:00 Pulse Ox 98 09/03/23 07:00 FiO2 Intake & Output 09/02/23 09/03/23 09/03/23 18:59 06:59 18:59 Intake Total 300 Balance 300 Intake: Oral 300 Other: Voiding Method Bedside Commode # Voids 2 1 - Labs CBC & Chem 7: 09/03/23 06:41 09/02/23 07:38 Labs: Abnormal Lab Results - Last 24 Hours (Table) 09/03/23 Range/Units 06:41 WBC 4.27 L (4.50-10.00) X 10*3/uL RBC 3.58 L (4.10-5.20) X 10*6/uL Hgb 10.3 L (12.0-15.0) g/dL Hct 35.1 L (37.2-46.3) % MCV 98.0 H (80.0-97.0) FL MCHC 29.3 L (32.0-37.0) g/dL
[2023-09-03 11:20] LABS: ALT 23 U/L (8-44); AST 29 U/L (13-35); Albumin 3.1 g/dL (3.8-4.9); Albumin/Globulin Ratio 1.63 Ratio (1.60-3.17); Alkaline Phosphatase 108 U/L (41-126); BUN/Creat Ratio 13.29 Ratio (12.00-20.00); Blood Urea Nitrogen 9.3 mg/dL (9.0-27.0); Calcium 8.5 mg/dL (8.7-10.3); Carbon Dioxide 26.8 mmol/L (21.6-31.8); Chloride 110 mmol/L (96-109); Globulin 1.9 g/dL (1.6-3.3); Glucose 92 mg/dL (70-110); Potassium 4.8 mmol/L (3.5-5.5); Sodium 143 mmol/L (135-145); Total Bilirubin 0.3 mg/dL (0.3-1.2)
--- NOTE | 2023-09-03 12:03 | P.PN ---
Subjective Progress Note Date: 09/03/23 patient 68-year-old lady with past medical history significant for paroxysmal atrial fibrillation on eliquis, hypertension, hyperlipidemia, COPD, gastroesophageal reflux disease, esophageal strictures with ballooning, obstructive sleep apnea not utilizing CPAP, kidney stones, restless leg syndrome, DVT and pulmonary embolism who presented to ER for episodes of dizziness and falling. Patient stated that she has been feeling dizzy for the last few days, patient stated that she does not pass out but feels as if the whole room is spinning around her. Patient has fallen on a couple of occasions. Denies any loss of consciousness. Denies any slurred speech. There is no complaint of facial droop. Denies any weakness of any extremity. There is no complaint of chest pain or shortness of breath. Denies any nausea, vomit abdominal pain. Because of the symptoms, patient came to the ER Initial lab work done in the ER showed WBC 4.2, hemoglobin 9.1, platelet count 279, sodium 142, potassium 4.4, BUN 15, creatinine 0.67, ALT 42, alkaline phosphatase 117 Influenza A not detected Influenza B not detected RSV not detected COVID-19 not detected EKG done in the ER showed heart rate of60, no ST segment elevation or depression seen, no T-wave inversions seen. Chest x-ray done in the ER showed no acute cardiopulmonary process X-ray pelvis showed no acute osseous pathology CT head done showed no acute intracranial process CT cervical, thoracic and lumbar spine stable appearance, no evidence of acute fracture Patient admitted to internal medicine service 09/02. Patient seen and examined. Labs done this morning showed sodium 139, potassium 4, BUN 13, creatinine 0.56, WBC 3.9, hemoglobin 10.1, platelet count 203. Ultrasound carotids done showed less than 50% stenosis of bilateral carotid bifurcations. Complaining of back pain. Denies any nausea or vomiting. Denies any dizziness 09/03. Patient seen and examined. Vital signs stable. Complaining of back pain. Patient scheduled for tilt table test today REVIEW OF SYSTEMS: CONSTITUTIONAL: No fever, no malaise,. CARDIOVASCULAR: No chest pain, no palpitations, no syncope. PULMONARY: No shortness of breath, no cough, GASTROINTESTINAL: No diarrhea, no nausea, no vomiting, no abdominal pain. NEUROLOGICAL: No headaches, no weakness, PHYSICAL EXAMINATION: GENERAL: The patient is alert and oriented x3, not in any acute distress. Well developed, well nourished. HEENT: Pupils are round and equally reacting to light. EOMI. No scleral icterus. No conjunctival pallor. Normocephalic, atraumatic. No pharyngeal erythema. No thyromegaly. CARDIOVASCULAR: S1 and S2 present. No murmurs, rubs, or gallops. PULMONARY: Chest is clear to auscultation, no wheezing or crackles. ABDOMEN: Soft, nontender, nondistended, normoactive bowel sounds. No palpable organomegaly. MUSCULOSKELETAL: No joint swelling or deformity. EXTREMITIES: No cyanosis, clubbing, or pedal edema. NEUROLOGICAL: Gross neurological examination did not reveal any focal deficits. SKIN: No rashes. Assessment and plan Dizziness hypertension and hypertensive cardiovascular disease Paroxysmal atrial fibrillation Gastroesophageal reflux disease Hyperlipidemia. History of pulmonary embolism and DVT Obstructive sleep apnea. weght loss, not using her CPAP COPD. Anxiety disoder. Allergic rhinitis. Monitor vital signs Monitor CBC Monitor CMP Continue telemetry monitoring Avoid hypotension Fall precautions Ultrasound carotids done showed less than 50% stenosis of bilateral carotid bifurcations Continue home meds Neurology following, recommended checking orthostatics and avoiding antihypertensives. Cardiology consulted, discontinued Adderall, ordered tilt able test Labs and medication were reviewed.. Continue same treatment. Continue with sy mptomatic treatment. Resume home medication. Monitor labs and vitals. DVT and GI prophylaxis. Further recommendations as per clinical course of the patient Dictation was produced using [employer] dictation software. please excuse any grammatical, word or spelling errors. Objective - Vital Signs Vital signs: Vital Signs Temp 98.3 F 09/03/23 07:00 Pulse 80 09/03/23 07:00 Resp 16 09/03/23 07:00 BP 101/65 09/03/23 07:00 Pulse Ox 98 09/03/23 07:00 FiO2 Intake & Output 09/02/23 09/03/23 09/03/23 18:59 06:59 18:59 Intake Total 300 Balance 300 Intake: Oral 300 Other: # Voids 2 1 - Labs CBC & Chem 7: 09/03/23 06:41 09/03/23 06:41
[2023-09-03] MEDS: IV FLUID CONTINUATION 800 ML IV ONE (14:51)
--- NOTE | 2023-09-03 16:35 | P.EPPROC ---
- EP Procedure Note Electrophysiology Procedure Note: Diagnosis Recurrent presyncope and syncope Twelve-lead EKG shows sinus rhythm normal TX interval narrow QRS normal QT interval Tilt table test per protocol Baseline blood pressure 127/78 mmHg baseline heart rate 67 beats a minute Patient was tilted upright in angle of 70 degrees per protocol towards the end of the study at about 40 minutes there was a mild drop in blood pressure to 96 mmHg. She complained of being dizzy with blurred vision and some sweating Prior to that she was also dizzy and nauseous She was laid supine her blood pressure improved 213/69 mmHg Impression Normal twelve-lead EKG Mild vasodepressive response to upright tilting at about 40 minutes into the tilt table test Suggest Consider low-dose Florinef
--- NOTE | 2023-09-03 16:59 | P.PN ---
Subjective Progress Note Date: 09/03/23 I'm seeing the patient for the first time during this admission. Please refer to Dr. Concepcion's notes for further details. Since the patient's having recurrent falls and she states she passes out. She denies any history of seizure or strokes in the past. She states the episodes are brief and denies any bowel incontinence. She had one episode of urinary incontinence. No tongue bite but she has no teeth. She stated she has mild tremor of the hands with some of these episodes. She stated that her blood pressure gets so low as low as in the 40s 50s. She stated that 2 days arch present in the hospital she had right facial droop. She is on eliquis 5mg bid and is compliant taking medication as well on ASA. As of the fall she has multiple fractures in the back and ribs. Objective - Vital Signs Vital signs: Vital Signs Temp 98.6 F 09/03/23 14:00 Pulse 63 09/03/23 14:00 Resp 16 09/03/23 14:00 BP 106/69 09/03/23 14:00 Pulse Ox 97 09/03/23 14:00 FiO2 Intake & Output 09/02/23 09/03/23 09/03/23 18:59 06:59 18:59 Intake Total 300 750 Balance 300 750 Intake: IV 750 Oral 300 Other: Voiding Method Bedside Commode # Voids 2 1 - Exam General: Lying in bed and is not in acute distress. Neuro: The patient is awake alert oriented to self place and time. The patient's fault simple commands. No aphasia and no neglect. Pupils are round equal reactive to light. Pupils are round 3-4 mm bilaterally. Visual vaughn are full to consultation. Extraocular movement is intact no nystagmus. No facial weakness. No dysarthria Motor: There is limitation assessing the strength because of her pain but is lifting all extremities above gravity. - Labs CBC & Chem 7: 09/03/23 06:41 09/03/23 06:41 Labs: Abnormal Lab Results - Last 24 Hours (Table) 09/03/23 09/03/23 Range/Units 06:41 06:41 WBC 4.27 L (4.50-10.00) X 10*3/uL RBC 3.58 L (4.10-5.20) X 10*6/uL Hgb 10.3 L (12.0-15.0) g/dL Hct 35.1 L (37.2-46.3) % MCV 98.0 H (80.0-97.0) FL MCHC 29.3 L (32.0-37.0) g/dL Chloride 110 H (96-109) mmol/L Calcium 8.5 L (8.7-10.3) mg/dL Total Protein 5.0 L (6.2-8.2) g/dL Albumin 3.1 L (3.8-4.9) g/dL Assessment and Plan Assessment: This is a 68-year-old gentleman with repeated episode of syncopal episode. She has history of orthostatic hypotension and her blood pressure runs low as low as 40s to 50s but is seems that it's running the 40s to 50s and diastolic about systolic is in the the 90s. He stated 2 days prior to present the hospital she had episode of right facial weakness that resolved. Lightheadedness, dizziness and falls to likely hypotensive episodes with reported history of orthostatic hypotension. She had a tilt table test and she had a mild vasodepressive response to upright tilt Transient episode of right facial weakness. Possible TIA. History of atrial fibrillation and is on eliquis History of hypertensionAnxiety and depression Plan: Carotid duplex was reported as less than 50% bilateral carotid bifurcation Had a tilt table test and she had mild vasodepressive response upper that tilting about 40 minutes into the tilt table test. Was recommended to consider low dose Florinef. Orthostatic vitals was negative but the patient systolic goes as low as 90s and diastolic goes as low as 40s to 50s. Recommend the normotensive and we'll defer the management to the primary team. I ordered a routine EEG to rule out any other etiology for her syncopal episodes such as seizure. I ordered MRI of the brain with and without Cardiology is on board. Patient is on home medication of eliquis 5mg bid. She is also on home ASA 81mg daily and will defer restart of medication to primary team. Fall precaution PT is consulted and I consulted OT We'll defer the rest of the medical measure the primary team and other specialist The plan discussed with the patient and her nurse Time with Patient: Less than 30
[2023-09-04] MEDS: FLUDROCORTISONE 0.1 MG TAB PO SCH (09:51)
--- NOTE | 2023-09-04 10:48 | P.PN ---
Subjective HISTORY OF PRESENT ILLNESS: The patient is a 68-year-old female who follows in the office with Dr. Wei. She has known history of paroxysmal atrial fibrillation. The patient is experiencing recurrent syncopal episodes. Her most recent episode she states that she did feel lightheaded prior and had a flushed sensation. Other times that she has felt nauseous with associated chest tightness. The patient states she is always standing when these episodes occur and most recently she was in her bathroom and was unconscious for approximately several minutes. She believes she was unconscious when EMS arrived. In the past the patient states she has taken nitroglycerin for these episodes. DIAGNOSTICS: EKG shows sinus mechanism without ST or T wave abnormalities Chest x-ray shows no acute cardiopulmonary process CT scan of the brain shows no acute intracranial process Carotid Doppler shows no significant disease Lab data: WBC 3.9, hemoglobin 10.1, hematocrit 32.3, platelet 203, sodium 139, potassium 4.0, BUN 13, creatinine 0.56, AST 28, ALT 28, ALP 100 09/03/2023 Patient examined this morning the bedside. Patient denies chest pain or pressure. She denies shortness of breath. Patient is scheduled to undergo tilt table testing today. 09/04/2023 Patient examined this morning at the bedside. She is status post tilt table testing yesterday revealing mild vasopressors episode to upright tilting at about 40 minutes into the tilt table test. Low-dose Florinef was recommended. Patient currently denies any chest pain or pressure. She denies any shortness of breath. Blood pressure this morning 91/55. PHYSICAL EXAM: VITAL SIGNS: Reviewed. GENERAL: Well-developed in no acute distress. NECK: Supple. No JVD or thyromegaly LUNGS: Respirations even and unlabored. Lungs essentially clear to auscultation bilaterally. HEART: Regular rate and rhythm. S1 and S2 heard. EXTREMITIES: Normal range of motion. No clubbing or cyanosis. Peripheral pulses intact. No lower extremity edema ASSESSMENT: Recurrent syncope Borderline hypotension Mild dysautonomia History of paroxysmal atrial fibrillation PLAN: Continue current cardiac medications Adderall has been discontinued And Florinef 0.1 mg daily Continue to monitor orthostatic blood pressures Will consider event monitor on an outpatient basis Patient may be discharged home today from a cardiac standpoint Patient to follow-up postdischarge with Dr. Martinez Nurse practitioner note has been reviewed by physician. Signing provider agrees with the documented findings, assessment, and plan of care documented by [employer] as a scribe. Objective - Vital Signs Vital signs: Vital Signs Temp 98.3 F 09/04/23 07:29 Pulse 69 09/04/23 07:29 Resp 16 09/04/23 07:29 BP 91/55 09/04/23 07:29 Pulse Ox 94 L 09/04/23 07:29 FiO2 Intake & Output 09/03/23 09/04/23 09/04/23 18:59 06:59 18:59 Intake Total 750 Output Total 1900 Balance 750 -1900 Intake: IV 750 Output: Urine 1900 Other: Voiding Method Bedside Commode # Voids 2 - Labs CBC & Chem 7: 09/03/23 06:41 09/03/23 06:41 Labs: Abnormal Lab Results - Last 24 Hours (Table) 09/03/23 09/03/23 Range/Units 06:41 06:41 WBC 4.27 L (4.50-10.00) X 10*3/uL RBC 3.58 L (4.10-5.20) X 10*6/uL Hgb 10.3 L (12.0-15.0) g/dL Hct 35.1 L (37.2-46.3) % MCV 98.0 H (80.0-97.0) FL MCHC 29.3 L (32.0-37.0) g/dL Chloride 110 H (96-109) mmol/L Calcium 8.5 L (8.7-10.3) mg/dL Total Protein 5.0 L (6.2-8.2) g/dL Albumin 3.1 L (3.8-4.9) g/dL
[2023-09-04] MEDS ORDERED: MORPHINE SULFATE 2 MG/ML SYRINGE IVP PRN (11:36)
[2023-09-04] MEDS: MORPHINE SULFATE 2 MG/ML SYRINGE IVP PRN (11:49)
--- NOTE | 2023-09-04 13:23 | P.PN ---
Subjective Progress Note Date: 09/04/23 patient 68-year-old lady with past medical history significant for paroxysmal atrial fibrillation on eliquis, hypertension, hyperlipidemia, COPD, gastroesophageal reflux disease, esophageal strictures with ballooning, obstructive sleep apnea not utilizing CPAP, kidney stones, restless leg syndrome, DVT and pulmonary embolism who presented to ER for episodes of dizziness and falling. Patient stated that she has been feeling dizzy for the last few days, patient stated that she does not pass out but feels as if the whole room is spinning around her. Patient has fallen on a couple of occasions. Denies any loss of consciousness. Denies any slurred speech. There is no complaint of facial droop. Denies any weakness of any extremity. There is no complaint of chest pain or shortness of breath. Denies any nausea, vomit abdominal pain. Because of the symptoms, patient came to the ER Initial lab work done in the ER showed WBC 4.2, hemoglobin 9.1, platelet count 279, sodium 142, potassium 4.4, BUN 15, creatinine 0.67, ALT 42, alkaline phosphatase 117 Influenza A not detected Influenza B not detected RSV not detected COVID-19 not detected EKG done in the ER showed heart rate of60, no ST segment elevation or depression seen, no T-wave inversions seen. Chest x-ray done in the ER showed no acute cardiopulmonary process X-ray pelvis showed no acute osseous pathology CT head done showed no acute intracranial process CT cervical, thoracic and lumbar spine stable appearance, no evidence of acute fracture Patient admitted to internal medicine service 09/02. Patient seen and examined. Labs done this morning showed sodium 139, potassium 4, BUN 13, creatinine 0.56, WBC 3.9, hemoglobin 10.1, platelet count 203. Ultrasound carotids done showed less than 50% stenosis of bilateral carotid bifurcations. Complaining of back pain. Denies any nausea or vomiting. Denies any dizziness 09/03. Patient seen and examined. Vital signs stable. Complaining of back pain. Patient scheduled for tilt table test today 09/04. Patient seen and examined. Tilt able test was positive Mild vasodepressi ve response to upright tilting at about 40 minutes into the tilt table test, cardiology started patient on Florinef. Neurology ordered MRI brain and EEG REVIEW OF SYSTEMS: CONSTITUTIONAL: No fever, no malaise,. CARDIOVASCULAR: No chest pain, no palpitations, no syncope. PULMONARY: No shortness of breath, no cough, GASTROINTESTINAL: No diarrhea, no nausea, no vomiting, no abdominal pain. NEUROLOGICAL: No headaches, no weakness, PHYSICAL EXAMINATION: GENERAL: The patient is alert and oriented x3, not in any acute distress. Well developed, well nourished. HEENT: Pupils are round and equally reacting to light. EOMI. No scleral icterus. No conjunctival pallor. Normocephalic, atraumatic. No pharyngeal erythema. No thyromegaly. CARDIOVASCULAR: S1 and S2 present. No murmurs, rubs, or gallops. PULMONARY: Chest is clear to auscultation, no wheezing or crackles. ABDOMEN: Soft, nontender, nondistended, normoactive bowel sounds. No palpable organomegaly. MUSCULOSKELETAL: No joint swelling or deformity. EXTREMITIES: No cyanosis, clubbing, or pedal edema. NEUROLOGICAL: Gross neurological examination did not reveal any focal deficits. SKIN: No rashes. Assessment and plan Dizziness Mild dysautonomia Recurrent syncope hypertension and hypertensive cardiovascular disease Paroxysmal atrial fibrillation Gastroesophageal reflux disease Hyperlipidemia. History of pulmonary embolism and DVT Obstructive sleep apnea. weght loss, not using her CPAP COPD. Anxiety disoder. Allergic rhinitis. Monitor vital signs Monitor CBC Monitor CMP Continue telemetry monitoring Avoid hypotension Fall precautions Ultrasound carotids done showed less than 50% stenosis of bilateral carotid bifurcations Continue home meds Neurology following, recommended checking orthostatics and avoiding antihypertensives. Ordered MRI brain and EEG Cardiology consulted, discontinued Adderall, Tilt able test was positive Mild vasodepressive response to upright tilting at about 40 minutes into the tilt table test, cardiology started patient on Florinef Labs and medication were reviewed.. Continue same treatment. Continue with symptomatic treatment. Resume home medication. Monitor labs and vitals. DVT and GI prophylaxis. Further recommendations as per clinical course of the patient Dictation was produced using [employer] dictation software. please excuse any grammatical, word or spelling errors. Objective - Vital Signs Vital signs: Vital Signs Temp 98.3 F 09/04/23 07:29 Pulse 69 09/04/23 07:29 Resp 16 09/04/23 07:29 BP 91/55 09/04/23 07:29 Pulse Ox 94 L 09/04/23 07:29 FiO2 Intake & Output 09/03/23 09/04/2324 18:59 06:59 18:59 Intake Total 750 Output Total 1900 Balance 750 -1900 Intake: IV 750 Output: Urine 1900 Other: Voiding Method Bedside Commode # Voids 2 - Labs CBC & Chem 7: 09/03/23 06:41 09/03/23 06:41 Labs: Abnormal Lab Results - Last 24 Hours (Table) 09/03/23 09/03/23 Range/Units 06:41 06:41 WBC 4.27 L (4.50-10.00) X 10*3/uL RBC 3.58 L (4.10-5.20) X 10*6/uL Hgb 10.3 L (12.0-15.0) g/dL Hct 35.1 L (37.2-46.3) % MCV 98.0 H (80.0-97.0) FL MCHC 29.3 L (32.0-37.0) g/dL Chloride 110 H (96-109) mmol/L Calcium 8.5 L (8.7-10.3) mg/dL Total Protein 5.0 L (6.2-8.2) g/dL Albumin 3.1 L (3.8-4.9) g/dL
--- NOTE | 2023-09-04 18:06 | MR ---
EXAMINATION TYPE: MR brain wo/w con DATE OF EXAM: 09/04/2023 4:58 PM CLINICAL INDICATION:Female, 68 years old with history of seizure COMPARISON: 08/30/2023 TECHNIQUE: Multi planar, multi sequence imaging was performed through the brain including: T1, T2, In version recovery, susceptibility weighted imaging and gradient echo imaging and Diffusion weighted im aging. The patient was then given intravenous contrast and multi planar, T1 fat-saturation images wer e obtained. IV Contrast: 8.5 cc Gadavist FINDINGS: Mild cerebral atrophy with proportional dilation of ventricular system. Diffusion-weighted imaging s hows no evidence of restricted diffusion to suggest acute/subacute infarct. Intracranial arterial martinez w voids are maintained. Midline structures show no abnormality. Scattered foci of high T2 signal inte nsity are seen within the periventricular white matter. The susceptibility weighted images do not rev eal any evidence for micro-hemorrhage. Blooming artifact compatible with mineralization of the basal ganglia bilaterally. After administration of gadolinium, no abnormal enhancement is seen. The bone marrow signal is within normal limits. Paranasal sinuses and mastoid air cells: No significant paranasal sinus disease. Visualized orbits: Orbital contents are intact. IMPRESSION: 1. No evidence of intracranial mass, acute/subacute infarct, or abnormal enhancement. 2. Nonspecific white matter changes, likely related to small vessel ischemic disease.
--- NOTE | 2023-09-04 21:32 | EEG ---
ELECTROENCEPHALOGRAM REPORT CLINICAL HISTORY: This is a 68-year-old woman with recurrent falls. The video EEG is obtained to evaluate for seizure epileptiform activity. RELEVANT MEDICATION: Lamictal. EEG TYPE: A routine 21-channel EEG with video using the 10/20 electrode placement system. DESCRIPTION: Wakefulness is only obtained. During awake state, the background consists of low-to- moderate voltage of 8.5 hertz activity. There is no physiological stage 2 sleep architecture. There is no focal slowing. INTERICTAL AND ICTAL: None. ACTIVATION PROCEDURE: Photic stimulation did not evoke a posterior driving response. There is no abnormality during the photic stimulation. Hyperventilation is not performed. CLINICAL INTERPRETATION: This is a normal routine EEG. There is no focal slowing, epileptiform discharge, or seizure on the EEG. A normal routine EEG does not rule out underlying epilepsy. Clinical correlation is recommended. JERMAINE / LIDIA: [id number] / MTDD
[2023-09-05 02:16] VITALS: RESP 17
[2023-09-05 08:47] VITALS: BP 107/68; PULSE 59; TEMP 98.1
--- NOTE | 2023-09-05 09:09 | P.PN ---
Subjective HISTORY OF PRESENT ILLNESS: The patient is a 68-year-old female who follows in the office with Dr. Wei. She has known history of paroxysmal atrial fibrillation. The patient is experiencing recurrent syncopal episodes. Her most recent episode she states that she did feel lightheaded prior and had a flushed sensation. Other times that she has felt nauseous with associated chest tightness. The patient states she is always standing when these episodes occur and most recently she was in her bathroom and was unconscious for approximately several minutes. She believes she was unconscious when EMS arrived. In the past the patient states she has taken nitroglycerin for these episodes. DIAGNOSTICS: EKG shows sinus mechanism without ST or T wave abnormalities Chest x-ray shows no acute cardiopulmonary process CT scan of the brain shows no acute intracranial process Carotid Doppler shows no significant disease Lab data: WBC 3.9, hemoglobin 10.1, hematocrit 32.3, platelet 203, sodium 139, potassium 4.0, BUN 13, creatinine 0.56, AST 28, ALT 28, ALP 100 09/03/2023 Patient examined this morning the bedside. Patient denies chest pain or pressure. She denies shortness of breath. Patient is scheduled to undergo tilt table testing today. 09/04/2023 Patient examined this morning at the bedside. She is status post tilt table testing yesterday revealing mild vasopressors episode to upright tilting at about 40 minutes into the tilt table test. Low-dose Florinef was recommended. Patient currently denies any chest pain or pressure. She denies any shortness of breath. Blood pressure this morning 91/55. 09/05/2023 Patient examined this morning at the bedside. Patient denies chest pain or pressure. She denies shortness of breath. She complains of significant back pain this morning. She does report that she had an episode of chest pain this morning that lasted for about an hour and resolved on its own. She did not take any medications for this or mention the discomfort to her nurse. She believes the pain was related to rib fractures due to a fall. Orthostatic blood pressures obtained this morning revealed blood pressure supine 107/68. Blood pressure sitting 103/68. And blood pressure standing 103/67. The patient denied having any dizziness or lightheadedness. PHYSICAL EXAM: VITAL SIGNS: Reviewed. GENERAL: Well-developed in no acute distress. NECK: Supple. No JVD or thyromegaly LUNGS: Respirations even and unlabored. Lungs essentially clear to auscultation bilaterally. HEART: Regular rate and rhythm. S1 and S2 heard. EXTREMITIES: Normal range of motion. No clubbing or cyanosis. Peripheral pulses intact. No lower extremity edema ASSESSMENT: Recurrent syncope Borderline hypotension Mild dysautonomia History of paroxysmal atrial fibrillation PLAN: Continue current cardiac medications Adderall has been discontinued Continue Florinef 0.1 mg daily Will consider event monitor on an outpatient basis if patient continues to have recurrent episodes of syncope; suspect syncope due to orthostatic hypotension Patient may be discharged home today from a cardiac standpoint Patient to follow-up postdischarge with Dr. Martinez We will sign off. Please reconsult if needed. Nurse practitioner note has been reviewed by physician. Signing provider agrees with the documented findings, assessment, and plan of care documented by YARD HOSTLER as a scribe. Objective - Vital Signs Vital signs: Vital Signs Temp 98.1 F 09/05/23 07:25 Pulse 59 L 09/05/23 07:25 Resp 17 09/05/23 07:25 BP 107/68 09/05/23 07:25 Pulse Ox 96 09/05/23 07:25 FiO2 Intake & Output 09/04/23 09/05/23 09/05/23 18:59 06:59 18:59 Intake Total 360 Balance 360 Intake: Oral 360 Other: Voiding Method Bedside Commode # Voids 3 1 - Labs CBC & Chem 7: 09/03/23 06:41 09/03/23 06:41
--- NOTE | 2023-09-05 14:51 | P.DS ---
Providers Date of admission: 09/03/23 09:23 Expected date of discharge: 09/05/23 Attending physician: Jaiden Barraza Consults: 08/31/23 20:21 Consult Physician Routine Consulting Provider: Daroí Johnson Consult Reason/Comments: dizzy, vertigo symptomsy Do you want consulting provider notified?: Yes 09/01/23 10:39 Consult Physician Routine Consulting Provider: John Martinez Consult Reason/Comments: Recurrent syncope Do you want consulting provider notified?: Yes Primary care physician: Dirk Menon Hospital Course: Final diagnosis Mild dysautonomia Recurrent syncope hypertension and hypertensive cardiovascular disease Paroxysmal atrial fibrillation Gastroesophageal reflux disease Hyperlipidemia History of pulmonary embolism and DVT Obstructive sleep apnea. weght loss, not using her CPAP COPD. Not in exacerbation History of anxiety disoder. History of allergic rhinitis. GI prophylaxis DVT prophylaxis Full code Discharge disposition Patient is being discharged in a stable condition with guarded prognosis to home. Patient will follow-up with Dr. Menon in the outpatient setting upon discharge. Patient is to continue with current cardiac medications and outpat ient follow-up with cardiology as scheduled. Patient also to follow-up with pain management as well as neurology outpatient. total time taken is greater than 35 minutes. Hospital course This is a 68-year-old female who was recently admitted with recurrent syncopes with falls being closely monitored with cardiology as well as neurology underwent extensive workup including MRI of the brain and EEG which was negative. Patient also had tilt table test with cardiology that showed a mild vasodepressive response to upright tilting at about 40 minutes into the tilt table test recommending continuing with Florinef low-dose. Patient will continue on 0.1 mg daily and close outpatient follow-up with cardiology as well as primary care provider. [facility] and recommend to follow-up in the next 1 to 2 weeks. Patient has been cleared by consultations for discharge. Please refer to other consultation notes for further HPI. Strongly recommend incentive spirometer use at least 10 times every hour while awake and continued coughing and deep breathing from recent falls with rib fractures. Recommend painter [employer] in the outpatient setting. Adderall has been discontinued as well. Currently no reports of chest pain, shortness of breath, or palpitations. Patient is afebrile. No reports of nausea or vomiting and patient is tolerating diet. Patient will be discharged home today. Guarded prognosis with high risk for readmissions given patient's significant comorbidities. Physical exam: Gen: This is a 68-year-old female who is awake, alert and oriented x 3, well- developed, well-nourished, elderly appearing HEENT: Head is atraumatic, normocephalic. Pupils equal, round. Sclerae is anicteric. NECK: Supple. No JVD. No lymphadenopathy. No thyromegaly. LUNGS: Clear to auscultation. No wheezes or rhonchi. No intercostal retractions. HEART: Regular rate and rhythm. No murmur. ABDOMEN: Soft. Bowel sounds are present. No masses. No tenderness. EXTREMITIES: No pedal edema. No calf tenderness. NEUROLOGICAL: Patient is awake, alert and oriented x3. Cranial nerves 2 through 12 are grossly intact. Please refer to medication reconciliation sheet for a list of medications. The impression and plan of care has been dictated by Lucia Samayoa, Nurse Practitioner as directed. Dr. Cielo MD I have performed a history and examination and MDM of this patient, discussed the same with the dictator, and agree with the dictator's assessment and plan as written ,documented as a scribe. Based on total visit time, I have performed more than 50% of the visit. Patient Condition at Discharge: Stable Plan - Discharge Summary Discharge Rx Participant: Yes New Discharge Prescriptions: New Acetaminophen Tab [Tylenol] 650 mg PO Q6HR PRN tab PRN Reason: Mild Pain Or Fever > 100.5 Fludrocortisone [Florinef] 0.1 mg PO DAILY #30 tablet Lidocaine 4% Patch 3 patch TOPICAL DAILY 30 Days #90 patch Continue FLUoxetine HCL [PROzac] 40 mg PO BID ALPRAZolam [Xanax] 2 mg PO TID Fluticasone/Vilanterol [Breo Ellipta 200-25 Mcg Inhaler] 1 puff INHALATION RT-DAILY Apixaban [Eliquis] 5 mg PO BID 30 Days #60 tab Atorvastatin [Lipitor] 10 mg PO HS Albuterol Sulfate [Ventolin HFA] 2 puff INHALATION RT-Q6H PRN PRN Reason: Shortness Of Breath Omeprazole 20 mg PO AC-BID QUEtiapine [SEROquel] 100 mg PO HS Meclizine [Antivert] 25 mg PO BID PRN tab PRN Reason: Vertigo tiZANidine [Zanaflex] 2 mg PO Q6HR PRN #30 tab PRN Reason: Pain Montelukast [Singulair] 10 mg PO HS Ondansetron Odt [Zofran ODT] 4 mg PO Q8H PRN PRN Reason: Nausea Nitroglycerin Sl Tabs [Nitrostat] 0.4 mg SL Q5M PRN PRN Reason: Chest Pain Metoprolol Succinate (ER) [Toprol XL] 12.5 mg PO HS #30 tab HYDROcodone/APAP 7.5-325MG [[place] 7.5-325] 1 tab PO Q6H lamoTRIgine [lamoTRIgine ER] 50 mg PO DAILY QUEtiapine [SEROquel] 25 mg PO BID@0800,1500 Discontinued Dextroamphetamine/Amphetamine [Adderall] 20 mg PO BID@0800,1500 Azithromycin [Zithromax] 500 mg PO DAILY Lidocaine 5% Patch [Lidoderm 5% Patch] 1 patch TOPICAL DAILY Discharge Medication List ALPRAZolam [Xanax] 2 mg PO TID 12/14/13 [History] FLUoxetine HCL [PROzac] 40 mg PO BID 12/14/13 [History] Fluticasone/Vilanterol [Breo Ellipta 200-25 Mcg Inhaler] 1 puff INHALATION RT- DAILY 05/15/18 [History] Apixaban [Eliquis] 5 mg PO BID 30 Days #60 tab 02/05/19 [Rx] Albuterol Sulfate [Ventolin HFA] 2 puff INHALATION RT-Q6H PRN 12/09/19 [History] Atorvastatin [Lipitor] 10 mg PO HS 12/09/19 [History] Omeprazole 20 mg PO AC-BID 12/10/20 [History] Montelukast [Singulair] 10 mg PO HS 11/19/21 [History] Ondansetron Odt [Zofran ODT] 4 mg PO Q8H PRN 11/19/21 [History] QUEtiapine [SEROquel] 100 mg PO HS 08/13/22 [History] Meclizine [Antivert] 25 mg PO BID PRN tab 10/30/22 [Rx] Nitroglycerin Sl Tabs [Nitrostat] 0.4 mg SL Q5M PRN 12/24/22 [History] Metoprolol Succinate (ER) [Toprol XL] 12.5 mg PO HS #30 tab 02/23/23 [Rx] tiZANidine [Zanaflex] 2 mg PO Q6HR PRN #30 tab 08/27/23 [Rx] HYDROcodone/APAP 7.5-325MG [[place] 7.5-325] 1 tab PO Q6H 08/31/23 [History] QUEtiapine [SEROquel] 25 mg PO BID@0800,1500 08/31/23 [History] lamoTRIgine [lamoTRIgine ER] 50 mg PO DAILY 08/31/23 [History] Acetaminophen Tab [Tylenol] 650 mg PO Q6HR PRN tab 09/05/23 [Rx] Fludrocortisone [Florinef] 0.1 mg PO DAILY #30 tablet 09/05/23 [Rx] Lidocaine 4% Patch 3 patch TOPICAL DAILY 30 Days #90 patch 09/05/23 [Rx] Follow up Appointment(s)/Referral(s): Dirk Menon MD [Primary Care Provider] - 1-2 days John Martinez MD [STAFF PHYSICIAN] - 09/12/23 11:00 am Raghu Murrell MD [STAFF PHYSICIAN] - 1 Week (Left message for the pain clinic to call patient ) Jostin Wadsworth MD [Medical Doctor] - 1 Week [facility] Visiting Nurse, [NON-STAFF] - Activity/Diet/Wound Care/Special Instructions: Activity limited until follow-up Follow-up with primary care provider on discharge Follow-up cardiology in 1 to 2 weeks and discuss the need for possible event monitor outpatient Follow-up neurology outpatient Recommend following up with [employer] outpatient Continue incentive spirometer at least 10 times every hour while awake Discharge Disposition: HOME WITH HOME HEALTH SERVICES
--- NOTE | 2023-09-05 15:09 | P.PN ---
Subjective Progress Note Date: 09/05/23 I am following-up with patient and feels about the same. Denies of any further syncopal episodes or any new neurological issues. Objective - Vital Signs Vital signs: Vital Signs Temp 98.1 F 09/05/23 07:25 Pulse 59 L 09/05/23 07:25 Resp 17 09/05/23 07:25 BP 107/68 09/05/23 07:25 Pulse Ox 96 09/05/23 07:25 FiO2 Intake & Output 09/04/23 09/05/23 09/05/23 18:59 06:59 18:59 Intake Total 360 456 Balance 360 456 Intake: Oral 360 456 Other: Voiding Method Bedside Commode Toilet # Voids 3 1 - Exam General: Lying in bed and is not in acute distress. Neuro: The patient is awake alert oriented to self place and time. The patient's fault simple commands. No aphasia and no neglect. Pupils are round equal reactive to light. Pupils are round 3-4 mm bilaterally. Visual vaughn are full to consultation. Extraocular movement is intact no nystagmus. No facial weakness. No dysarthria Motor: There is limitation assessing the strength because of her pain but is lifting all extremities above gravity. - Labs CBC & Chem 7: 09/03/23 06:41 09/03/23 06:41 Assessment and Plan Assessment: This is a 68-year-old gentleman with repeated episode of syncopal episode. She has history of orthostatic hypotension and her blood pressure runs low as low as 40s to 50s but is seems that it's running the 40s to 50s and diastolic about systolic is in the the 90s. He stated 2 days prior to present the hospital she had episode of right facial weakness that resolved. Lightheadedness, dizziness and falls to likely hypotensive episodes with reported history of orthostatic hypotension. She had a tilt table test and she had a mild vasodepressive response to upright tilt. EEG is normal and MRI brain is negative for acute/subacute process. Transient episode of right facial weakness. Possible TIA. History of atrial fibrillation and is on eliquis History of hypertensionAnxiety and depression Plan: Carotid duplex was reported as less than 50% bilateral carotid bifurcation Had a tilt table test and she had mild vasodepressive response upper that tilting about 40 minutes into the tilt table test. Was recommended to consider low dose Florinef. Orthostatic vitals was negative but the patient systolic goes as low as 90s and diastolic goes as low as 40s to 50s. Recommend the normotensive and we'll defer the management to the primary team. Routine EEG: Is normal. MRI Brain w/ and w/o: Is reported as No evidence of intracranial mass, acute/subacute infarct, or abnormal enhancement. Nonspecific white matter changes, likely related to small vessel ischemic disease. Cardiology is on board. Patient is on home medication of eliquis 5mg bid. She is also on home ASA 81mg daily and will defer restart of medication to primary team. Fall precaution PT is consulted and I consulted OT We'll defer the rest of the medical measure the primary team and other specialist. Recommend to follow-up with neurologist as outpatient within 3-4 weeks. The plan discussed with the patient and primary team. N.P. There is no further neurological work-up. Will sign off. Please reconsult if needed. Time with Patient: Less than 30
== END 2023-09-05 17:08 | disposition home health service (06) | DRG 92 ==
LOC: EC 15:56 → 6NMEDSUR 20:24 → OBSVTOIN 09-03 09:23
PROVIDERS: ADMIT Hospitalist; ATTEND Hospitalist
PROC: 4A023FZ Measurement of Cardiac Rhythm, Percutaneous Approach (ICD-10-PCS; 2023-09-03)
PROC: 4A0234Z Measurement of Cardiac Electrical Activity, Percutaneous Approach (ICD-10-PCS; 2023-09-03)
PROC: 4A03XB1 Measurement of Arterial Pressure, Peripheral, External Approach (ICD-10-PCS; principal; 2023-09-03 13:20)
DX: G90.1 Familial dysautonomia [Riley-Day] (principal); F03.93 Unspecified dementia, unspecified severity, with mood disturbance; S22.41XA Multiple fractures of ribs, right side, initial encounter for closed fracture; G45.9 Transient cerebral ischemic attack, unspecified; F03.94 Unspecified dementia, unspecified severity, with anxiety; I11.0 Hypertensive heart disease with heart failure; I50.9 Heart failure, unspecified; I48.0 Paroxysmal atrial fibrillation; J44.9 Chronic obstructive pulmonary disease, unspecified; F32.A Depression, unspecified; G25.81 Restless legs syndrome; E78.5 Hyperlipidemia, unspecified; K21.9 Gastro-esophageal reflux disease without esophagitis; G47.33 Obstructive sleep apnea (adult) (pediatric); I95.1 Orthostatic hypotension; M54.50 Low back pain, unspecified; J30.9 Allergic rhinitis, unspecified; M79.7 Fibromyalgia; R29.810 Facial weakness; R32 Unspecified urinary incontinence; R29.6 Repeated falls; W19.XXXA Unspecified fall, initial encounter; Z96.641 Presence of right artificial hip joint; Z91.81 History of falling; Z79.891 Long term (current) use of opiate analgesic; Z86.711 Personal history of pulmonary embolism; Z86.718 Personal history of other venous thrombosis and embolism; Z98.84 Bariatric surgery status; Z85.828 Personal history of other malignant neoplasm of skin; Z79.51 Long term (current) use of inhaled steroids; Z79.899 Other long term (current) drug therapy; Z79.01 Long term (current) use of anticoagulants; Z91.048 Other nonmedicinal substance allergy status; I25.2 Old myocardial infarction; Z81.8 Family history of other mental and behavioral disorders; Z11.52 Encounter for screening for COVID-19
CPT/HCPCS: 36415; 70450; 70553; 71046; 72125; 72128; 72131; 72170; 80048; 80053; 85025; 85027; 85610; 85730; 87636; 93660; 93880; 94640; 95816; 96361; 96374; 96375; 96376; 99285

== ENCOUNTER → 2023-09-17 | Outpatient (CLI) | payer MEDICARE, OTHER ==
--- NOTE | 2023-09-17 12:07 | XR ---
EXAMINATION TYPE: XR foot complete LT DATE OF EXAM: 09/17/2023 11:01 AM CLINICAL INDICATION:Female, 68 years old with history of M79.672 PAIN IN LEFT FOOT; [facility] COMPARISON: None TECHNIQUE: XR foot complete LT examined in the AP, oblique, and lateral projections. FINDINGS: No evidence of any acute osseous pathology. No evidence of soft tissue swelling. Joints are preserve d. Multifocal degeneration changes throughout the joints of the foot with osteophyte formation and archie int space narrowing. Mild calcaneal plantar spurring. IMPRESSION: No evidence of acute fracture. 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
== END | disposition home or self-care (01) ==
LOC: RADXRMAIN 10:35
PROVIDERS: ATTEND Internal Medicine
DX: M19.072 Primary osteoarthritis, left ankle and foot (principal)

== ENCOUNTER → 2023-09-18 | Outpatient (CLI) | payer MEDICARE, OTHER ==
--- NOTE | 2023-09-20 06:20 | CT ---
EXAMINATION TYPE: CT foot LT wo con DATE OF EXAM: 09/18/2023 COMPARISON: Left foot x-ray one day earlier HISTORY: LT foot and ankle pain, bruising around toes and lateral aspect of ankle. CT DLP: 433.10 mGycm Automated exposure control for dose reduction was used. FINDINGS: No acute fracture or dislocation in the left ankle or foot. Slightly suboptimal as true axial, sagitt al, and coronal planes are not performed along the planes of the foot. Ankle mortise symmetry is pres erved. There is [id number] soft tissue swelling over the medial malleolus. There is increased d ensity felt to reflect chronic edema over the lateral malleolus. Moderate diffuse subcutaneous edema along the plantar surface is present. Flexion in the distal third through fifth toes is seen. IMPRESSION: As above.
== END | disposition home or self-care (01) ==
LOC: RADCTMAIN 10:30
PROVIDERS: ATTEND Internal Medicine
DX: M25.572 Pain in left ankle and joints of left foot (principal); M79.672 Pain in left foot

== ENCOUNTER 2023-10-18 20:17 | Emergency (ER) | payer MEDICARE, OTHER ==
[2023-10-18 20:37] VITALS: RESP 18; TEMP 98.6
[2023-10-18] MEDS: HYDROcodone/APAP 7.5-325MG 1 EACH TAB PO ONE (21:25)
[2023-10-18] MEDS: ONDANSETRON ODT 4 MG TAB PO STA (21:26)
--- NOTE | 2023-10-18 21:42 | ED ---
Animal Bite HPI - General Chief Complaint: Animal Bite Stated Complaint: Dog bite Time Seen by Provider: 10/18/23 20:53 Source: patient Mode of arrival: ambulatory Limitations: no limitations - History of Present Illness Initial Comments: 68-year-old female presenting with chief complaint of dog bite. Patient was at home when her 2 dogs started fighting. These dogs are up-to-date on their vaccinations. Patient does have several punctures and lacerations to the bilateral hands and forearms. It was raining and muddy outside, when she came outside she slipped and fell backwards. She hit her head and her back. She had no loss of consciousness. She is on Eliquis. She is having right-sided rib pain, she has history of previous compression fractures and rib fractures, states that this feels like a flareup of her chronic pain. She admits to some nausea. No vomiting. No vision or hearing changes. No numbness or tingling. Does not remember when her last tetanus shot was. - Related Data Home Medications Medication Instructions Recorded Confirmed ALPRAZolam [Xanax] 2 mg PO TID 12/14/13 08/31/23 FLUoxetine HCL [PROzac] 40 mg PO BID 12/14/13 08/31/23 Fluticasone/Vilanterol [Breo 1 puff INHALATION RT-DAILY 05/15/18 08/31/23 Ellipta 200-25 Mcg Inhaler] Albuterol Sulfate [Ventolin HFA] 2 puff INHALATION RT-Q6H PRN 12/09/19 08/31/23 Atorvastatin [Lipitor] 10 mg PO HS 12/09/19 08/31/23 Omeprazole 20 mg PO AC-BID 12/10/20 08/31/23 Montelukast [Singulair] 10 mg PO HS 11/19/21 08/31/23 Ondansetron Odt [Zofran ODT] 4 mg PO Q8H PRN 11/19/21 08/31/23 QUEtiapine [SEROquel] 100 mg PO HS 08/13/22 08/31/23 Nitroglycerin Sl Tabs [Nitrostat] 0.4 mg SL Q5M PRN 12/24/22 08/31/23 HYDROcodone/APAP 7.5-325MG [Mclain 1 tab PO Q6H 08/31/23 08/31/23 7.5-325] QUEtiapine [SEROquel] 25 mg PO BID@0800,1500 08/31/23 08/31/23 lamoTRIgine [lamoTRIgine ER] 50 mg PO DAILY 08/31/23 08/31/23 Previous Rx's Medication Instructions Recorded Apixaban [Eliquis] 5 mg PO BID 30 Days #60 tab 02/05/19 Meclizine [Antivert] 25 mg PO BID PRN tab 10/30/22 Metoprolol Succinate (ER) [Toprol 12.5 mg PO HS #30 tab 02/23/23 XL] tiZANidine [Zanaflex] 2 mg PO Q6HR PRN #30 tab 08/27/23 Acetaminophen Tab [Tylenol] 650 mg PO Q6HR PRN tab 09/05/23 Fludrocortisone [Florinef] 0.1 mg PO DAILY #30 tablet 09/05/23 Lidocaine 4% Patch 3 patch TOPICAL DAILY 30 Days #90 09/05/23 patch Amoxic-Pot Clav 875-125Mg 1 tab PO Q12HR 10 Days #20 tab 10/18/23 [Augmentin 875-125] Azithromycin [Zithromax Z Pack] 1 tab PO DIRECTED #6 tab 10/18/23 Allergies Allergy/AdvReac Type Severity Reaction Status Date / Time adhesive tape AdvReac Skin Verified 10/18/23 20:23 Tearing Review of Systems ROS Statement: Those systems with pertinent positive or pertinent negative responses have been documented in the HPI. ROS Other: All systems not noted in ROS Statement are negative. Past Medical History Past Medical History: Atrial Fibrillation, Asthma, Cancer, Heart Failure, COPD, Dementia, Deep Vein Thrombosis (DVT), Fibromyalgia, GERD/Reflux, GI Bleed, Hyperlipidemia, Memory Impairment, Myocardial Infarction (UT), Osteoarthritis (OA), Pneumonia, Pulmonary Embolus (PE), Sleep Apnea/CPAP/BIPAP Additional Past Medical History / Comment(s): had pneumonia fall 2020, skin cancer with removals, pt states she had a UT in 2015, hypotension, dementia/memory issues d/t of daughter, esophageal strictures w/ballooning, diverticular disease, anemia, RLS, kidney stones, sinus problems, LORIE-not using CPAP, fx. ribs & was adm. & found to have bad gallbladder, hx. of lung nodules-had lavage, PE's & DVT-unsure of cause, takes metoprolol for a-fib, fell and fx. right wrist-has half cast/splint Last Myocardial Infarction Date:: 2015 History of Any Multi-Drug Resistant Organisms: None Reported Past Surgical History: Adenoidectomy, Appendectomy, Bariatric Surgery, Breast Surgery, Cholecystectomy, Hernia Repair, Hysterectomy, Joint Replacement, Tonsillectomy Additional Past Surgical History / Comment(s): R breast bx. x2, 3 umbilical hernia repairs, lithotripsies, gastric bypass, L chao benign tumor, multiple skin bx/skin cancer removals, EGD/dilations and colonoscopies. rt hip replacement, rt wrist orif Past Anesthesia/Blood Transfusion Reactions: Previous Problems w/ Anesthesia Additional Past Anesthesia/Blood Transfusion Reaction / Comment(s): bp dips low, tends to bleed alot w/surgeries, no problems w/blood transfusions Past Psychological History: Anxiety, Depression Smoking Status: Never smoker Past Alcohol Use History: None Reported Past Drug Use History: None Reported - Past Family History Brother(s) Family Medical History: Cancer Additional Family Medical History / Comment(s): Psychiatric history also runs in the patient's family. The patient's daughter has committed suicide. The patient's brother and sister and mother all of cancers. Apparently rest cancer and esophageal cancer and pancreatic cancer runs in family unable to give detailed history on that. Sister(s) Family Medical History: Cancer Father Family Medical History: Myocardial Infarction (UT) Additional Family Medical History / Comment(s): Father had lung cancer. Mother Family Medical History: Cancer Additional Family Medical History / Comment(s): Mother had pancreatic cancer. General Exam Limitations: no limitations General appearance: alert, in no apparent distress Head exam: Present: atraumatic, normocephalic Eye exam: Present: normal appearance Neck exam: Present: normal inspection Respiratory exam: Absent: respiratory distress Cardiovascular Exam: Present: regular rate Neurological exam: Present: alert, oriented X3 Expanded Eye Response: (4) open spontaneously Motor Response: (6) obeys commands Verbal Response: (5) oriented Martha Total: 15 Psychiatric exam: Present: normal affect, normal mood Expanded Type of lesion: Present: laceration (Multiple puncture wounds to the upper extremities) Course Vital Signs 04/11/24 04/11/24 20:21 23:41 Temperature 98.6 F Pulse Rate 78 57 L Respiratory 18 18 Rate Blood Pressure 156/97 128/80 O2 Sat by Pulse 96 97 Oximetry Medical Decision Making - Medical Decision Making Was pt. sent in by a medical professional or institution (, ESA, LEASING SPECIALIST, urgent care, hospital, or correction...) When possible be specific @ -No Did you speak to anyone other than the patient for history (EMS, parent, family, police, friend...)? What history was obtained from this source @ -No Did you review nursing and triage notes (agree or disagree)? Why? @ -I reviewed and agree with nursing and triage notes Were old charts reviewed (outside hosp., previous admission, EMS record, old EKG, old radiological studies, urgent care reports/EKG's, correction records)? Report findings @ -No old charts were reviewed Differential Diagnosis (chest pain, altered mental status, abdominal pain women, abdominal pain men, vaginal bleeding, weakness, fever, dyspnea, syncope, headache, dizziness, GI bleed, back pain, seizure, CVA, palpatations, mental health, musculoskeletal)? @ -Musculoskeletal EKG interpreted by me (3pts min.). @ -As above X-rays interpreted by me (1pt min.). @ -Left forearm x-ray shows no evidence of fracture Thoracic spine x-ray shows no clearly acute osseous pathology Right-sided rib x-rays with PA chest x-ray shows acute mildly displaced fracture of the right anterior ninth or 10th rib. No pneumothorax. Vague right infrahilar opacity of uncertain etiology. Considerations include contusion, atelectatic changes, pneumonia, neoplasm. Close follow-up recommended, this may include CT of the chest with contrast for most detailed assessment CT interpreted by me (1pt min.). @ -CT of the brain and cervical spine shows no acute intracranial abnormality. No evidence of acute cervical spine fracture or traumatic malalignment. Mild to moderate cervical spondylosis U/S interpreted by me (1pt. min.). @ -None done What testing was considered but not performed or refused? (CT, X-rays, U/S, labs)? Why? @ -None What meds were considered but not given or refused? Why? @ -None Did you discuss the management of the patient with other professionals (professionals i.e. , PA, LEASING SPECIALIST, lab, RT, psych nurse, forensic social worker, funeral director and embalmer, teacher, sailing officer, mattress spring encaser)? Give summary @ -No Was smoking cessation discussed for >3mins.? @ -No Was critical care preformed (if so, how long)? @ -No Were there social determinants of health that impacted care today? How? (Homelessness, low income, unemployed, alcoholism, drug addiction, tra nsportation, low edu. Level, literacy, decrease access to med. care, usp, rehab)? @ -No Was there de-escalation of care discussed even if they declined (Discuss DNR or withdrawal of care, Hospice)? DNR status @ -No What co-morbidities impacted this encounter? (DM, HTN, Smoking, COPD, CAD, Cancer, CVA, ARF, Chemo, Hep., AIDS, mental health diagnosis, sleep apnea, morbid obesity)? @ -None Was patient admitted / discharged? Hospital course, mention meds given and route, prescriptions, significant lab abnormalities, going to OR and other pertinent info. @ -68-year-old female presenting with chief complaint of dog bite. Her dogs were fighting and she attempted to break up a fight. She has multiple puncture wounds to the bilateral upper extremities. She did slip and hit head. No loss of consciousness, she is on Eliquis. She is complaining of pain to the right side and forearm. Patient has a pre-existing rib fracture to the right side. History and physical exam are conducted. Her tetanus is updated today. Her wounds are irrigated. X-ray shows mildly displaced fracture of the right anterior ninth or 10th rib, which is pre-existing. There is also a vague right infrahilar opacity. Patient reports that she did experience some GERD the other day which she believes she aspirated. Patient is started on azithromycin and instructed to follow-up with her PCP regarding chest x-ray findings today. Remainder of imaging studies are negative. Patient is started on Augmentin for the dog bites. Educated on today's findings and supportive management at home. Educated on wound care and signs of infection. Discharged follow-up with PCP. Report back to ER with any new or worsening symptoms. Discussed return parameters and answered all questions. Patient conveyed verbal understanding and agreed to the plan. I discussed this case in detail with my attending Dr. Vo Undiagnosed new problem with uncertain prognosis? @ -No Drug Therapy requiring intensive monitoring for toxicity (Heparin, Nitro, Insulin, Cardizem)? @ -No Were any procedures done? @ -No Diagnosis/symptom? @ -Dog bite, pneumonia Acute, or Chronic, or Acute on Chronic? @ -Acute Uncomplicated (without systemic symptoms) or Complicated (systemic symptoms)? @ -Uncomplicated Side effects of treatment? @ -No Exacerbation, Progression, or Severe Exacerbation? @ -No Poses a threat to life or bodily function? How? (Chest pain, [place], UT, pneumonia, PE, COPD, DKA, ARF, appy, cholecystitis, CVA, Diverticulitis, Homicidal, Suicidal, threat to staff... and all critical care pts) @ -Low likelihood Diagnosis/symptom? @Rib fracture Acute, or Chronic, or Acute on Chronic? @Acute on chronic Uncomplicated (without systemic symptoms) or Complicated (systemic symptoms)? @Uncomplicated Side effects of treatment? @None Exacerbation, Progression, or Severe Exacerbation] @No Poses a threat to life or bodily function? @No Disposition Clinical Impression: Dog bite, Pneumonia, Rib fracture Disposition: HOME SELF-CARE Condition: Fair Instructions (If sedation given, give patient instructions): Animal Bite (ED), Rib Fracture (ED), Aspiration Pneumonia (DC) Additional Instructions: Follow-up with PCP. Report back to ER with any new or worsening symptoms. Take medication as prescribed. Follow-up with your PCP regarding chest x-ray findings today. Prescriptions: Amoxic-Pot Clav 875-125Mg [Augmentin 875-125] 1 tab PO Q12HR 10 Days #20 tab Azithromycin [Zithromax Z Pack] 1 tab PO DIRECTED #6 tab Is patient prescribed a controlled substance at d/c from ED?: No Referrals: Dirk Menon MD [Primary Care Provider] - 1-2 days Time of Disposition: 23:26
[2023-10-18] MEDS: DIPH,PERTUS(ACELL)TETVAC-LF 0.5 ML VIAL IM ONE (22:13)
--- NOTE | 2023-10-18 22:15 | CT ---
EXAMINATION TYPE: CT brain cspine wo con CT DLP: 1367.7 mGycm, Automated exposure control for dose reduction was used. DATE OF EXAM: 10/18/2023 10:02 PM COMPARISON: None. CLINICAL INDICATION:Female, 68 years old with history of fall; pulling back while pt. broke up her tw o dogs fighting. fell backwards and hit head. pt. complains of laceration on bite light on bilateral hands/forearms TECHNIQUE: Brain: Multiple axial CT images of the brain were obtained without IV contrast. Cspine: Axial CT images from the skull base to the inferior aspect of T2 we obtained without intraven ous contrast. Coronal and sagittal reformatted images were also reviewed. FINDINGS: Brain: Extra-axial spaces: No abnormal extra-axial fluid collections. Ventricular system: Appear mildly dilated in proportion to the degree of cerebral atrophy. Cerebral parenchyma: No increased attenuation to suggest acute intraparenchymal hemorrhage. The gra y-white matter interface appears maintained. Mild generalized brain atrophy. Scattered hypoattenuat ing areas are seen within the cerebral white matter, nonspecific but most often seen with chronic brenden rovascular ischemic changes; mild in degree. A few small calcifications of the bilateral basal gangl ia. Cerebellum: No acute abnormality. Mass effect: No evidence of mass effect or midline shift. Intracranial vasculature: A few atherosclerotic calcifications of the larger arteries near the skull base. Soft tissues: No acute abnormality demonstrated. Visualized orbits: Orbital contents appear grossly intact. Calvarium/osseous structures: Limitation by motion however no calvarial fracture is seen. Paranasal sinuses and mastoid air cells: Appear clear. MRI is more sensitive for detecting acute processes such as infarct, and may be considered if clinica lly warranted. Cervical spine: Fracture: None seen. Osseous structures, spinal canal/neural foramina: Craniocervical junction appears intact. There are m ild/moderate degenerative changes in the cervical spine. No significant narrowing of the canal or karoline ral foramina is seen in the upper cervical segments. At C5-C6 and C6-C7 there are disc osteophyte com plexes resulting in mild to moderate canal and osseous neural foramina. No critical stenosis is sugge sted. Vertebral alignment: No traumatic malalignment. Preserved normal cervical lordosis. Neck soft tissues: No acute finding.. Other: Lung apices show no acute infiltrate or pneumothorax. IMPRESSION: CT head: 1. No acute intracranial CT abnormality. CT cervical spine: 1. No evidence of acute cervical spine fracture or traumatic malalignment. 2. Mild/moderate cervical spondylosis.
--- NOTE | 2023-10-18 23:05 | XR ---
EXAMINATION TYPE: XR ribs RT w pa chest xray DATE OF EXAM: 10/18/2023 9:46 PM CLINICAL INDICATION:Female, 68 years old with history of fall; [facility] COMPARISON: Chest x-rays 08/31/2023 and before TECHNIQUE: Frontal and oblique views of the right ribs with frontal chest radiograph. FINDINGS: There appears to be a mildly displaced right anterior rib fracture, likely the ninth or 10th rib. Oth er subtle rib fractures would be difficult to exclude. Nevertheless, there is no evidence of pneumoth orax. Mild degenerative changes of the shoulders and spine. Postoperative changes with clips and possible anastomotic suture in the upper abdomen. Heart size upper normal. Mildly tortuous aorta. Mild subsegmental atelectasis in the lung bases. Ther e is vague asymmetric opacity in the right infrahilar region, of uncertain etiology. No sizable pleur al fluid collection is seen. IMPRESSION: 1. Acute mildly displaced fracture of the right anterior 9th or 10th rib. 2. No pneumothorax. 3. Vague right infrahilar opacity, of uncertain etiology. Considerations include contusion, atelecta tic changes, pneumonia, neoplasm. Close follow-up recommended, this may include CT of the chest with contrast for most detailed assessment.
--- NOTE | 2023-10-18 23:14 | XR ---
EXAMINATION TYPE: XR thoracic spine complete DATE OF EXAM: 10/18/2023 9:46 PM CLINICAL INDICATION:Female, 68 years old with history of fall; [facility] COMPARISON: CT thoracic spine 08/31/2023 TECHNIQUE: 3 views of the thoracic spine in Frontal, lateral, swimmer's projections. FINDINGS: No clear evidence of an acute compression fracture. There is mild multilevel degenerative disc diseas e with mild anterior wedging at a few levels with greatest compression deformity in a mid to inferior thoracic vertebra which seems to correspond to the previous CT. There is slight exaggeration of the normal thoracic kyphosis. No acute soft tissue abnormality is suggested. Please refer to separate duc st x-ray for further description of findings. IMPRESSION: No clearly acute osseous pathology. If concern persists, CT or MRI may be considered.
--- NOTE | 2023-10-18 23:16 | XR ---
EXAMINATION TYPE: XR forearm LT DATE OF EXAM: 10/18/2023 9:47 PM CLINICAL INDICATION:Female, 68 years old with history of FALL/DOG BITE; [facility] COMPARISON: TECHNIQUE: The left forearm was examined in AP and lateral projections. FINDINGS: No acute fracture or significant malalignment. Mild prominence and increased attenuation o f the soft tissues in the distal forearm, could be due to contusion and/or hematoma. No radiopaque fo reign body is seen. IMPRESSION: No evidence of acute fracture.
[2023-10-18] MEDS: LIDOCAINE 4% PATCH TOPICAL ONE (23:21)
[2023-10-18 23:43] VITALS: BP 128/80; PULSE 57
[2023-10-18] MEDS: AMOXIC-POT CLAV 875MG STARTER PACK 2 TAB BTL PO STA (23:54)
== END 2023-10-18 23:57 | disposition home or self-care (01) ==
LOC: EC 20:17
DX: S22.31XA Fracture of one rib, right side, initial encounter for closed fracture (principal); Z91.09 Other allergy status, other than to drugs and biological substances; Z23 Encounter for immunization; W54.0XXA Bitten by dog, initial encounter
CPT/HCPCS: 70450; 72072; 72125; 90471; 90715; 99283

== ENCOUNTER → 2023-11-20 | Outpatient (CLI) | payer MEDICARE, OTHER ==
--- NOTE | 2023-11-20 11:44 | XR ---
EXAMINATION TYPE: XR chest 2V DATE OF EXAM: 11/20/2023 11:10 AM CLINICAL INDICATION:Female, 68 years old with history of J18.9 pneumonia; [facility] COMPARISON: Chest radiographs from 10/18/2023. TECHNIQUE: XR chest 2V Frontal and lateral views of the chest. FINDINGS: Lungs/Pleura: Improvement masslike consolidation changes around the right renal hilum. There is no ev idence of pleural effusion, focal consolidation, or pneumothorax. Pulmonary vascularity: Unremarkable. Heart/mediastinum: Cardiomediastinal silhouette is unremarkable. Musculoskeletal: No acute osseous pathology. Other findings: None Lines/Tubes: IMPRESSION: Improved consolidation changes along the right perihilar region. No evidence for pneumonia.
== END | disposition home or self-care (01) ==
LOC: RADXRMAIN 10:41
PROVIDERS: ATTEND Internal Medicine
DX: J18.9 Pneumonia, unspecified organism (principal)
CPT/HCPCS: 71046

== ENCOUNTER 2023-11-27 11:43 | Emergency (ER) | payer MEDICARE, OTHER ==
--- NOTE | 2023-11-27 12:25 | ED ---
General Adult HPI - General Chief complaint: Fall Stated complaint: Pain Time Seen by Provider: 11/27/23 12:00 Source: patient, EMS, RN notes reviewed, old records reviewed Mode of arrival: EMS Limitations: no limitations - History of Present Illness Initial comments: This is a 68-year-old female who presents to the emergency department complaining of right knee and right hip pain. Patient also states she has some upper left back pain which she states has been there for a while because she has broken ribs in the past. Patient states she fell into a hole yesterday with her left leg and her right leg was splayed out next-door and that is where she hurt her knee. Patient denies any head trauma or neck pain patient [place] any numbness weakness. Patient denies any abdominal pain. Patient denies any other injury at this time - Related Data Home Medications Medication Instructions Recorded Confirmed ALPRAZolam [Xanax] 2 mg PO TID 12/14/13 08/31/23 FLUoxetine HCL [PROzac] 40 mg PO BID 12/14/13 08/31/23 Fluticasone/Vilanterol [Breo 1 puff INHALATION RT-DAILY 05/15/18 08/31/23 Ellipta 200-25 Mcg Inhaler] Albuterol Sulfate [Ventolin HFA] 2 puff INHALATION RT-Q6H PRN 12/09/19 08/31/23 Atorvastatin [Lipitor] 10 mg PO HS 12/09/19 08/31/23 Omeprazole 20 mg PO AC-BID 12/10/20 08/31/23 Montelukast [Singulair] 10 mg PO HS 11/19/21 08/31/23 Ondansetron Odt [Zofran ODT] 4 mg PO Q8H PRN 11/19/21 08/31/23 QUEtiapine [SEROquel] 100 mg PO HS 08/13/22 08/31/23 Nitroglycerin Sl Tabs [Nitrostat] 0.4 mg SL Q5M PRN 12/24/22 08/31/23 HYDROcodone/APAP 7.5-325MG [[place] 1 tab PO Q6H 08/31/23 08/31/23 7.5-325] QUEtiapine [SEROquel] 25 mg PO BID@0800,1500 08/31/23 08/31/23 lamoTRIgine [lamoTRIgine ER] 50 mg PO DAILY 08/31/23 08/31/23 Previous Rx's Medication Instructions Recorded Apixaban [Eliquis] 5 mg PO BID 30 Days #60 tab 02/05/19 Meclizine [Antivert] 25 mg PO BID PRN tab 10/30/22 Metoprolol Succinate (ER) [Toprol 12.5 mg PO HS #30 tab 02/23/23 XL] tiZANidine [Zanaflex] 2 mg PO Q6HR PRN #30 tab 08/27/23 Acetaminophen Tab [Tylenol] 650 mg PO Q6HR PRN tab 09/05/23 Fludrocortisone [Florinef] 0.1 mg PO DAILY #30 tablet 09/05/23 Lidocaine 4% Patch 3 patch TOPICAL DAILY 30 Days #90 09/05/23 patch Amoxic-Pot Clav 875-125Mg 1 tab PO Q12HR 10 Days #20 tab 10/18/23 [Augmentin 875-125] Azithromycin [Zithromax Z Pack] 1 tab PO DIRECTED #6 tab 10/18/23 Allergies Allergy/AdvReac Type Severity Reaction Status Date / Time adhesive tape AdvReac Skin Verified 10/18/23 20:23 Tearing Review of Systems ROS Statement: Those systems with pertinent positive or pertinent negative responses have been documented in the HPI. ROS Other: All systems not noted in ROS Statement are negative. Past Medical History Past Medical History: Atrial Fibrillation, Asthma, Cancer, Heart Failure, COPD, Dementia, Deep Vein Thrombosis (DVT), Fibromyalgia, GERD/Reflux, GI Bleed, Hyperlipidemia, Memory Impairment, Myocardial Infarction ([place]), Osteoarthritis (OA), Pneumonia, Pulmonary Embolus (PE), Sleep Apnea/CPAP/BIPAP Additional Past Medical History / Comment(s): had pneumonia fall 2020, skin cancer with removals, pt states she had a [place] in 2016, hypotension, dementia/memory issues d/t of daughter, esophageal strictures w/ballooning, diverticular disease, anemia, RLS, kidney stones, sinus problems, LORIE-not using CPAP, fx. ribs & was adm. & found to have bad gallbladder, hx. of lung nodules-had lavage, PE's & DVT-unsure of cause, takes metoprolol for a-fib, fell and fx. right wrist-has half cast/splint Last Myocardial Infarction Date:: 2015 History of Any Multi-Drug Resistant Organisms: None Reported Past Surgical History: Adenoidectomy, Appendectomy, Bariatric Surgery, Breast Surgery, Cholecystectomy, Hernia Repair, Hysterectomy, Joint Replacement, Tonsillectomy Additional Past Surgical History / Comment(s): R breast bx. x2, 3 umbilical hernia repairs, lithotripsies, gastric bypass, L chao benign tumor, multiple skin bx/skin cancer removals, EGD/dilations and colonoscopies. rt hip replacement, rt wrist orif Past Anesthesia/Blood Transfusion Reactions: Previous Problems w/ Anesthesia Additional Past Anesthesia/Blood Transfusion Reaction / Comment(s): bp dips low, tends to bleed alot w/surgeries, no problems w/blood transfusions Past Psychological History: Anxiety, Depression Smoking Status: Never smoker Past Alcohol Use History: None Reported Past Drug Use History: None Reported - Past Family History Brother(s) Family Medical History: Cancer Additional Family Medical History / Comment(s): Psychiatric history also runs in the patient's family. The patient's daughter has committed suicide. The patient's brother and sister and mother all of cancers. Apparently rest cancer and esophageal cancer and pancreatic cancer runs in family unable to give detailed history on that. Sister(s) Family Medical History: Cancer Father Family Medical History: Myocardial Infarction ([place]) Additional Family Medical History / Comment(s): Father had lung cancer. Mother Family Medical History: Cancer Additional Family Medical History / Comment(s): Mother had pancreatic cancer. General Exam - General Exam Comments Initial Comments: GENERAL: Patient is well-developed and well-nourished. Patient is nontoxic and well- hydrated and is in mild distress. ENT: Neck is soft and supple. No significant lymphadenopathy is noted. Oropharynx is clear. Moist mucous membranes. Neck has full range of motion without eliciting any pain. EYES: The sclera were anicteric and conjunctiva were pink and moist. Extraocular movements were intact and pupils were equal round and reactive to light. Eyelids were unremarkable. PULMONARY: Unlabored respirations. Good breath sounds bilaterally. No audible rales rhonchi or wheezing was noted. CARDIOVASCULAR: There is a regular rate and rhythm without any murmurs gallops or rubs. ABDOMEN: Soft and nontender with normal bowel sounds. SKIN: Skin is clear with no lesions or rashes and otherwise unremarkable. NEUROLOGIC: Patient is alert and oriented x3. Cranial nerves II through XII are grossly intact. Motor and sensory are also intact. Normal speech, volume and content. Symmetrical smile. MUSCULOSKELETAL: Patient has full range of motion of all 4 extremities including her right knee and right hip. Patient has a little anterior tenderness just above the patella on the right. Patient has some tenderness in the mid upper left of her back just below and medial to the scapula LYMPHATICS: No significant lymphadenopathy is noted PSYCHIATRIC: Normal psychiatric evaluation. Limitations: no limitations Course Vital Signs 11/27/23 11:51 Temperature 99.4 F Pulse Rate 85 Respiratory 18 Rate Blood Pressure 101/66 O2 Sat by Pulse 96 Oximetry Medical Decision Making - Medical Decision Making EKG is interpreted by myself EKG shows a sinus rhythm at 92 bpm parables 139 QRS of 76 QT interval is 365 QTc is 415. Patient's EKG shows no ST segment ovation or depression Was pt. sent in by a medical professional or institution (, PA, SUPERVISOR [employer], urgent care, hospital, or retirement...) When possible be specific @ -No Did you speak to anyone other than the patient for history (EMS, parent, family, police, friend...)? What history was obtained from this source @ -No Did you review nursing and triage notes (agree or disagree)? Why? @ -I reviewed and agree with nursing and triage notes Were old charts reviewed (outside hosp., previous admission, EMS record, old EKG, old radiological studies, urgent care reports/EKG's, retirement records)? Report findings @ -No old charts were reviewed Differential Diagnosis (chest pain, altered mental status, abdominal pain women, abdominal pain men, vaginal bleeding, weakness, fever, dyspnea, syncope, headache, dizziness, GI bleed, back pain, seizure, CVA, palpatations, mental health, musculoskeletal)? @ -Differential Musculoskeletal Muscular strain, contusion, ligament sprain, fracture, arthritis, septic arthritis, bursitis, cellulitis, muscle spasm, nerve compression, DVT, arterial occlusion, herpes zoster, electrolyte abnormality, tumor.... This is not meant to be in all inclusive list EKG interpreted by me (3pts min.). @ -As above X-rays interpreted by me (1pt min.). @ -X-ray of the knee shows no acute normality, x-ray of the chest shows no acute O'Janet, x-ray of the pelvis shows no acute abnormality CT interpreted by me (1pt min.). @ -None done U/S interpreted by me (1pt. min.). @ -None done What testing was considered but not performed or refused? (CT, X-rays, U/S, labs)? Why? @ -None What meds were considered but not given or refused? Why? @ -None Did you discuss the management of the patient with other professionals (professionals i.e. , PA, [employer], lab, RT, psych nurse, long term care social worker, metal model builder, teacher, electrical engineering drafting officer, casework manager)? Give summary @ -No Was smoking cessation discussed for >3mins.? @ -No Was critical care preformed (if so, how long)? @ -No Were there social determinants of health that impacted care today? How? (Homelessness, low income, unemployed, alcoholism, drug addiction, transportation, low edu. Level, literacy, decrease access to med. care, [facility], rehab)? @ -No Was there de-escalation of care discussed even if they declined (Discuss DNR or withdrawal of care, Hospice)? DNR status @ -No What co-morbidities impacted this encounter? (DM, HTN, Smoking, COPD, CAD, Cancer, CVA, ARF, Chemo, Hep., AIDS, mental health diagnosis, sleep apnea, morbid obesity)? @ -None Was patient admitted / discharged? Hospital course, mention meds given and route, prescriptions, significant lab abnormalities, going to OR and other pertinent info. @ -Patient's x-ray showed no acute bony abnormality and no effusion. Patient is able to ambulate she will follow-up as an outpatient. Patient received Toradol in the emergency department for pain and it did help. Undiagnosed new problem with uncertain prognosis? @ -No Drug Therapy requiring intensive monitoring for toxicity (Heparin, Nitro, Insulin, Cardizem)? @ -No Were any procedures done? @ -No Diagnosis/symptom? @ -Right knee strain Acute, or Chronic, or Acute on Chronic? @ -Acute Uncomplicated (without systemic symptoms) or Complicated (systemic symptoms)? @ -Uncomplicated Side effects of treatment? @ -No Exacerbation, Progression, or Severe Exacerbation? @ -No Poses a threat to life or bodily function? How? (Chest pain, [place], [place], pneumonia, PE, COPD, DKA, ARF, appy, cholecystitis, CVA, Diverticulitis, Homicidal, Suicidal, threat to staff... and all critical care pts) @ -No Disposition Clinical Impression: Strain of right knee Disposition: HOME SELF-CARE Instructions (If sedation given, give patient instructions): Fall Prevention for Older Adults (ED), Knee Pain (ED) Additional Instructions: Patient should take Motrin and Tylenol as needed for pain Is patient prescribed a controlled substance at d/c from ED?: No Referrals: Dirk Menon MD [Primary Care Provider] - 1-2 days Time of Disposition: 13:52
[2023-11-27 12:32] VITALS: BP 101/66; PULSE 85; RESP 18; TEMP 99.4
[2023-11-27] MEDS: KETOROLAC 15 MG/ML 1 ML VIAL IM STA (13:21)
--- NOTE | 2023-11-27 13:28 | XR ---
EXAMINATION TYPE: XR chest 2V DATE OF EXAM: 11/27/2023 1:03 PM CLINICAL INDICATION:Female, 68 years old with history of Difficulty breathing ; COMPARISON: Chest radiographs from 11/20/2023 TECHNIQUE: XR chest 2V Frontal and lateral views of the chest. FINDINGS: Lungs/Pleura: There is no evidence of pleural effusion, focal consolidation, or pneumothorax. Pulmonary vascularity: Unremarkable. Heart/mediastinum: Cardiomediastinal silhouette is unremarkable. Musculoskeletal: No acute osseous pathology. IMPRESSION: No acute cardiopulmonary disease/process.
--- NOTE | 2023-11-27 13:32 | XR ---
EXAMINATION TYPE: XR pelvis AP view DATE OF EXAM: 11/27/2023 1:03 PM CLINICAL INDICATION:Female, 68 years old with history of Fall; COMPARISON: None TECHNIQUE: The pelvis was examined in a single projection. FINDINGS: There is no evidence of fracture or dislocation. There is no soft tissue abnormality. No a bnormal calcifications are present. The spine appears intact. The hips appear intact. No significant degeneration. Right hip arthroplasty changes with severe degeneration changes of the left hip. IMPRESSION: 1. No acute osseous pathology. 2. Severe left hip degeneration. 3. Right hip arthroplasty with hardware intact.
--- NOTE | 2023-11-27 13:32 | XR ---
EXAMINATION TYPE: XR knee complete RT DATE OF EXAM: 11/27/2023 1:03 PM CLINICAL INDICATION:Female, 68 years old with history of Fall; H COMPARISON: None. TECHNIQUE: XR knee complete RT; examined in Frontal, lateral and oblique projections. FINDINGS: No evidence of any acute osseous pathology, soft tissue swelling is noted. Tricompartment al osteophyte formation involving the femoral condyles, tibial plateau and patella. Mild joint space narrowing. IMPRESSION: 1. No acute osseous pathology. 2. Mild tricompartmental osteoarthritic changes.
== END 2023-11-27 13:53 | disposition home or self-care (01) ==
LOC: EC 11:43
DX: S86.911A Strain of unspecified muscle(s) and tendon(s) at lower leg level, right leg, initial encounter (principal); Z88.8 Allergy status to other drugs, medicaments and biological substances; W17.2XXA Fall into hole, initial encounter
CPT/HCPCS: 72170; 73562; 71046; 99284; 96372; J1885

== ENCOUNTER → 2023-12-07 | Outpatient (CLI) | payer MEDICARE, OTHER ==
[2023-12-07 15:01] LABS: African American GFR (CKD) >90 (>60 ml/min/1.73 sqM); Blood Urea Nitrogen 17 mg/dL (7-17); Non-African American GFR(CKD) >90 (>60 ml/min/1.73 sqM)
--- NOTE | 2023-12-07 15:42 | CT ---
EXAMINATION TYPE: CT chest w con DATE OF EXAM: 12/07/2023 COMPARISON: 12/24/2022 HISTORY: 68-year-old female J18.9 pneumonia, unspecified organism; abnormal findings x 1 months, pneu monia vs. mass TECHNIQUE: Contiguous axial scanning of the chest after the administration of 100ml mL of Isovue 300. Coronal/sagittal reconstructions performed. CT DLP: 357.2mGycm. Automatic exposure control utilized for a dose reduction. FINDINGS: Heart normal size without pericardial effusion. Proximal LAD coronary artery calcifications are prese nt. Aorta normal caliber with conventional arch vessel branching anatomy. No thoracic lymphadenopathy by CT size criteria. Borderline caliber to the main right and left pulmonary arteries measuring up to 2.6 cm may reflect u nderlying pulmonary arterial hypertension. * A 5 mm anterior left apical pulmonary nodule is unchanged. * Some strandy atelectasis and scarring noted at the left base. * Somewhat irregular appearance posteromedial left lower lobe measuring 1.5 cm may represent additio nal scarring but is new from 12/24/2022, axial image 36. Otherwise, no consolidation or pleural effusion. Postsurgical change of Owen-en-Y gastric bypass with small hiatal hernia incorporating the gastric po uch and gastrojejunostomy. parapelvic cyst left kidney measuring up to 2.5 cm and the right kidney re nal cortical cyst measuring 1.1 cm. Bones: Endplate deformities of T7 are chronic. Superior endplate deformity with secondary anterior we dging of T8 and 40% anterior height loss is new compared to 12/24/2022 but still favored to be chronic given the lack of any paravertebral soft tissue swelling. IMPRESSION: 1. Some stringy scarring redemonstrated at the left base. A new area at the medial left lower lobe me asuring 1.5 cm could represent additional scarring. Three-month follow-up CT to ensure stability and exclude early neoplasm. 2. Redemonstrated small hiatal hernia containing the gastric pouch and gastrojejunostomy. Patient sta tus post Owen-en-Y gastric bypass. 3. Anterior wedge deformity of T8 is new compared to 12/24/2022 but still suspected chronic given the lack of surrounding soft tissue swelling. Correlate for any focal pain.
== END | disposition home or self-care (01) ==
LOC: RADCTMAIN 14:06
PROVIDERS: ATTEND Internal Medicine
DX: K44.9 Diaphragmatic hernia without obstruction or gangrene (principal); J18.9 Pneumonia, unspecified organism; M43.8X4 Other specified deforming dorsopathies, thoracic region; R91.8 Other nonspecific abnormal finding of lung field; Z98.84 Bariatric surgery status
CPT/HCPCS: 82565; 84520; 71260; 36415; Q9967

== ENCOUNTER → 2023-12-11 | Outpatient (CLI) | payer MEDICARE, OTHER ==
--- NOTE | 2023-12-11 09:38 | XR ---
EXAMINATION TYPE: XR tibia fibula bilateral, XR ankle complete bilateral DATE OF EXAM: 12/11/2023 7:42 AM CLINICAL INDICATION:Female, 68 years old with history of pain COMPARISON: None TECHNIQUE: XR tibia fibula bilateral, XR ankle complete bilateral; tibia/fibula was examined in AP an d lateral projections. Frontal lateral and oblique views of the ankle. FINDINGS: No evidence of any acute osseous pathology, joint dislocation, or soft tissue swelling is n oted. Mild degeneration of the knees with osteophyte formation of the tibial plateau and patella. The re is severe atherosclerosis of the arterial vasculature. Mild calcaneal plantar spurring bilaterally . Achilles enthesophyte formation off the posterior calcaneus also present. Scattered calcified granu leigh ann within the skin noted. Multifocal degeneration changes of the joints of the foot bilaterally wi th osteophyte formation and joint space narrowing. IMPRESSION: 1. No evidence of acute fracture. 2. Mild bilateral knee and ankle degeneration changes.
--- NOTE | 2023-12-11 18:36 | MR ---
EXAMINATION TYPE: MR knee LT wo con DATE OF EXAM: 12/11/2023 COMPARISON: None HISTORY: Left knee pain, S/P injured stepping into hole. TECHNIQUE: Multiplanar, multisequence imaging of the left knee is performed without IV contrast. FINDINGS: There is a focal area of edema in the medial and posterior aspect of the medial tibial plateau. The p ossibility of nondisplaced fracture is not excluded. There is minimal likely physiologic joint fluid. The cruciate and collateral ligaments are intact. Some degenerative signal within the menisci but no discrete tear. The quadriceps and patellar tendons are intact. There is mild tricompartment osteoarthritis with areas of mild cartilaginous thinning in minimal hype rtrophic spurring. IMPRESSION: 1. Small focal area of edema in the posterior medial tibial plateau and the possibility this nondispl aced fracture is not excluded. 2. Mild tricompartment osteoarthritis. 3. No definite meniscal or ligamentous injury.
--- NOTE | 2023-12-11 18:43 | MR ---
EXAMINATION TYPE: MR knee RT wo con DATE OF EXAM: 12/11/2023 COMPARISON: None HISTORY: Right knee pain, S/P injured stepping into hole. TECHNIQUE: Multiplanar, multisequence imaging of the right knee is performed without IV contrast. FINDINGS: There is a nondisplaced fracture with bone marrow edema of the posterior and lateral aspect of the la teral tibial plateau there is mild focal bone marrow edema in the medial tibial plateau. Discrete fra cture is not identified with certainty. The cruciate and collateral ligaments are intact. There is a horizontal tear extending to the inferior surface of the body and posterior horn of the me dial meniscus. There is a horizontal tear extending to the inferior surface of the anterior horn and body of the lateral meniscus. There is a small joint effusion. The quadriceps and patellar tendons are intact. There is moderate tricompartment osteoarthritis is moderate thinning of the articular cartilages in h ypertrophic spurring. There is a full-thickness defect in the midline patellar cartilage.. IMPRESSION: 1. Nondisplaced tibial plateau fracture and tibial edema as described above. 2. Medial and lateral meniscal tears. 3. Small joint effusion. 4. Moderate tricompartment osteoarthritis 5. full-thickness cartilaginous defect in the midline patellar cartilage
== END | disposition home or self-care (01) ==
LOC: RADMRIMAIN 05:55
PROVIDERS: ATTEND Orthopaedic Surgery
DX: M17.0 Bilateral primary osteoarthritis of knee (principal); M19.072 Primary osteoarthritis, left ankle and foot; M19.071 Primary osteoarthritis, right ankle and foot; S83.281A Other tear of lateral meniscus, current injury, right knee, initial encounter; S83.241A Other tear of medial meniscus, current injury, right knee, initial encounter; S82.002A Unspecified fracture of left patella, initial encounter for closed fracture; S82.001A Unspecified fracture of right patella, initial encounter for closed fracture; S80.02XA Contusion of left knee, initial encounter; S80.01XA Contusion of right knee, initial encounter; M16.12 Unilateral primary osteoarthritis, left hip; M25.552 Pain in left hip; X58.XXXA Exposure to other specified factors, initial encounter

== ENCOUNTER → 2023-12-24 | Outpatient (CLI) | payer MEDICARE, OTHER ==
--- NOTE | 2023-12-24 21:45 | MR ---
EXAMINATION TYPE: MR thoracic spine wo/w con DATE OF EXAM: 12/24/2023 7:49 PM CLINICAL INDICATION:Female, 68 years old with history of S22.060A WEDGE COMPRESSION FRACTURE OF T7-T8 VERTE; [facility], Left leg fell in hole DTE dug. Wedge compression fracture of T7-T8 vertebra, initial enc ounter for closed fracture COMPARISON: 12/07/2023 TECHNIQUE: Multi planar, multi sequence imaging was performed utilizing: T1-weighted, short-tau inver jaquelin recovery and T2-weighted of the thoracic spine. IV Contrast: 8.5 cc Gadavist (none if empty) FINDINGS: Alignment: Alignment is within normal limits. Vertebral bodies have preserved heights. Spinal cord: Spinal cord is within normal limits for signal. No abnormal postcontrast enhancement. Discs: Intervertebral disc signal is maintained. No evidence of significant spinal canal or neural fo raminal stenosis. There is no evidence of extradural defects or central spinal canal narrowing at any thoracic vertebral body level Osseous structures: Increased bony edema on inversion recovery signal of T8 vertebral body with 50% h eight loss. There is also up to 35 % height loss of the T7 vertebral body without significant bony ed leopoldo. No abnormal postcontrast enhancement. Multilevel degeneration with osteophyte formation disc spa ce tearing facet joint arthropathy. No abnormal postcontrast enhancement. IMPRESSION: 1. Acute/subacute compression fracture of T8 vertebral body with 50% height loss and no significant retropulsion. 2. More chronic appearing T7 vertebral body compression fracture without significant bony edema. The re is at least 35% height loss. 3. No evidence for significant spinal canal stenosis. 4. Mild to moderate degeneration changes of the spine without significant neural foraminal stenosis.
== END | disposition home or self-care (01) ==
LOC: RADMRIMAIN 18:32
PROVIDERS: ATTEND Internal Medicine
DX: S22.060A Wedge compression fracture of T7-T8 vertebra, initial encounter for closed fracture (principal)
CPT/HCPCS: 72157; A9585

== ENCOUNTER → 2024-01-14 | Outpatient (CLI) | payer MEDICARE, OTHER ==
--- NOTE | 2024-01-14 13:37 | XR ---
EXAMINATION TYPE: XR chest 2V DATE OF EXAM: 01/14/2024 12:41 PM CLINICAL INDICATION:Female, 68 years old with history of R29.6 Multiple falls; [facility] COMPARISON: Chest radiographs from 11/27/2023 TECHNIQUE: XR chest 2V Frontal view of the chest. FINDINGS: Lungs/Pleura: There is no evidence of pleural effusion, focal consolidation, or pneumothorax. Pulmonary vascularity: Unremarkable. Heart/mediastinum: Cardiomediastinal silhouette is unremarkable. Musculoskeletal: No acute osseous pathology. Other findings: None Lines/Tubes: IMPRESSION: 1. No acute cardiopulmonary disease process. 2. COPD changes.
--- NOTE | 2024-01-14 15:01 | XR ---
EXAMINATION TYPE: XR Hip Complete RT DATE OF EXAM: 01/14/2024 12:41 PM CLINICAL INDICATION:Female, 68 years old with history of R29.6 Multiple falls; COMPARISON: 11/27/2023. TECHNIQUE: XR Hip Complete RT; hip was examined in the frontal and lateral projections and a AP pelvi s. FINDINGS: Post arthroplasty changes, hardware is intact, alignment is appropriate. No evidence of fra cture. No evidence of any acute osseous pathology or joint dislocation. IMPRESSION: Hip arthroplasty with hardware intact and in appropriate alignment. No acute fracture.
== END | disposition home or self-care (01) ==
LOC: RADXRMAIN 12:14
PROVIDERS: ATTEND Internal Medicine
DX: J44.9 Chronic obstructive pulmonary disease, unspecified (principal); Z96.641 Presence of right artificial hip joint; R29.6 Repeated falls
CPT/HCPCS: 71046; 73502

== ENCOUNTER → 2024-02-04 | Outpatient (CLI) | payer MEDICARE, OTHER ==
--- NOTE | 2024-02-04 16:13 | XR ---
EXAMINATION TYPE: XR cervical spine comp DATE OF EXAM: 02/04/2024 4:01 PM CLINICAL INDICATION:Female, 68 years old with history of M54.6 PAIN IN THORACIC SPINE; [facility] COMPARISON: 01/06/2016 TECHNIQUE: The cervical spine was imaged in frontal, lateral, odontoid and bilateral oblique. FINDINGS: The osseous structures show normal alignment without evidence of an acute fracture. There are osteoph ytes noted throughout the cervical spine on the anterior and lateral aspects of the vertebral bodies. The intervertebral disk spaces are narrowed at multiple levels. Pedicles are intact. Soft tissues a re within normal limits. The odontoid appears intact. IMPRESSION: 1. No fracture or dislocation. 2. Mild degenerative disc disease changes of the cervical spine.
--- NOTE | 2024-02-04 16:14 | XR ---
EXAMINATION TYPE: XR thoracic spine 2V DATE OF EXAM: 02/04/2024 4:01 PM CLINICAL INDICATION:Female, 68 years old with history of M54.6 PAIN IN THORACIC SPINE; [facility] COMPARISON: 10/18/2023 TECHNIQUE: XR thoracic spine 2V views of the spine in Frontal and lateral projections. FINDINGS: No evidence of acute fracture. There is scattered multilevel disk space narrowing without loss of ve rtebral body height. Wedging of multiple vertebral bodies in the midthoracic spine.. Scattered osteop hyte formation along the anterior and lateral aspects of the vertebral bodies. Neural foramen are pat ent given limitations of this exam. Spinal canal appears patent. IMPRESSION: 1. No acute osseous pathology. 2. Moderate multilevel degeneration changes of the spine. 3. Multilevel wedging of vertebral bodies suggestive of compression fractures which are age-indetermi nehemiah correlate with pain, consider MRI.
== END | disposition home or self-care (01) ==
LOC: RADXRMAIN 15:14
PROVIDERS: ATTEND Registered Nurse
DX: M50.30 Other cervical disc degeneration, unspecified cervical region (principal)
CPT/HCPCS: 72050; 72070

== ENCOUNTER 2024-11-12 14:46 | Emergency (ER) | payer MEDICARE, OTHER ==
[2024-11-12] MEDS: BACITRACIN OINT 1 EACH PACKET TOPICAL ONE (15:37)
[2024-11-12] MEDS: ACETAMINOPHEN TAB 325 MG TAB PO STA (15:37)
--- NOTE | 2024-11-12 15:37 | ED ---
Animal Bite HPI - General Chief Complaint: Animal Bite Stated Complaint: Dog Bite Time Seen by Provider: 11/12/24 15:00 Source: patient, family, RN notes reviewed, old records reviewed Mode of arrival: EMS Limitations: no limitations - History of Present Illness Initial Comments: 69-year-old female presenting to the ER for evaluation of dog bite. Patient states her dog which is an [id number] Jona kole puppy is not used to wearing a collar as she has a fenced in yard. She states she placed the collar on the animal and did not have the leash so attempted to grab at the collar to leave the dog to her car when the dog went to bite at the collar and accidentally bit patient's left forearm. Patient does take Eliquis as she has a history of blood clots and states she noticed a large amount of blood from wounds. Patient prompted to call EMS at that time. Tetanus is up-to-date. Animal is up-to-date on vaccinations. Patient denies any limited range of motion or paresthesias to left upper extremity. No other injuries or complaints. - Related Data Home Medications Medication Instructions Recorded Confirmed ALPRAZolam [Xanax] 1 - 2 mg PO TID PRN 12/14/13 08/16/24 FLUoxetine HCL [PROzac] 80 mg PO DAILY 12/14/13 08/16/24 Fluticasone/Vilanterol [Breo 1 puff INHALATION RT-DAILY 05/15/18 08/16/24 Ellipta 200-25 Mcg Inhaler] Montelukast [Singulair] 10 mg PO DAILY 11/19/21 08/16/24 Ondansetron Odt [Zofran ODT] 4 mg PO Q8H PRN 11/19/21 08/16/24 QUEtiapine [SEROquel] 100 mg PO HS 08/13/22 08/16/24 Nitroglycerin Sl Tabs [Nitrostat] 0.4 mg SL Q5M PRN 12/24/22 08/16/24 HYDROcodone/APAP 7.5-325MG [[place] 1 tab PO BID PRN 08/31/23 08/16/24 7.5-325] QUEtiapine [SEROquel] 25 mg PO BID@0800,1500 08/31/23 08/16/24 Atorvastatin Calcium [Lipitor] 40 mg PO DAILY 08/16/24 08/16/24 Dexlansoprazole [Dexlansoprazole 60 mg PO DAILY 08/16/24 08/16/24 ] Famotidine [Pepcid] 20 mg PO BID 08/16/24 08/16/24 Ipratropium-Albuterol Nebulize 3 ml INHALATION RT-Q6H 08/16/24 08/16/24 [Duoneb 0.5 mg-3 mg/3 ml Soln] Lidocaine 5% Patch [Lidoderm 5% 1 patch TOPICAL DAILY 08/16/24 08/16/24 Patch] Metoprolol Succinate (ER) [Toprol 12.5 mg PO BID 08/16/24 08/16/24 XL] lamoTRIgine [lamoTRIgine ER] 200 mg PO DAILY 08/16/24 08/16/24 modafiniL [Provigil] 100 mg PO DAILY 08/16/24 08/16/24 Previous Rx's Medication Instructions Recorded Apixaban [Eliquis] 5 mg PO BID 30 Days #60 tab 02/05/19 Amoxic-Pot Clav 875-125Mg 1 tab PO Q12HR #20 tab 11/12/24 [Augmentin 875-125] Allergies Allergy/AdvReac Type Severity Reaction Status Date / Time adhesive tape AdvReac Skin Verified 11/12/24 14:55 Tearing Review of Systems ROS Statement: Those systems with pertinent positive or pertinent negative responses have been documented in the HPI. ROS Other: All systems not noted in ROS Statement are negative. Past Medical History Past Medical History: Atrial Fibrillation, Asthma, Cancer, Heart Failure, COPD, Dementia, Deep Vein Thrombosis (DVT), Fibromyalgia, GERD/Reflux, GI Bleed, Hyperlipidemia, Memory Impairment, Myocardial Infarction ([place]), Osteoarthritis (OA), Pneumonia, Pulmonary Embolus (PE), Sleep Apnea/CPAP/BIPAP Additional Past Medical History / Comment(s): had pneumonia fall 2020, skin cancer with removals, pt states she had a [place] in 2015, hypotension, d ementia/memory issues d/t of daughter, esophageal strictures w/ballooning, diverticular disease, anemia, RLS, kidney stones, sinus problems, LORIE-not using CPAP, fx. ribs & was adm. & found to have bad gallbladder, hx. of lung nodules- had lavage, PE's & DVT-unsure of cause, takes metoprolol for a-fib, fell and fx. right wrist-has half cast/splint Last Myocardial Infarction Date:: 2015 History of Any Multi-Drug Resistant Organisms: None Reported Past Surgical History: Adenoidectomy, Appendectomy, Bariatric Surgery, Breast Surgery, Cholecystectomy, Hernia Repair, Hysterectomy, Joint Replacement, Tonsillectomy Additional Past Surgical History / Comment(s): R breast bx. x2, 3 umbilical andie ia repairs, lithotripsies, gastric bypass, L chao benign tumor, multiple skin bx/skin cancer removals, EGD/dilations and colonoscopies. rt hip replacement, rt wrist orif Past Anesthesia/Blood Transfusion Reactions: Previous Problems w/ Anesthesia Additional Past Anesthesia/Blood Transfusion Reaction / Comment(s): bp dips low, tends to bleed alot w/surgeries, no problems w/blood transfusions Past Psychological History: Anxiety, Depression Smoking Status: Never smoker Past Alcohol Use History: None Reported Past Drug Use History: None Reported - Past Family History Brother(s) Family Medical History: Cancer Additional Family Medical History / Comment(s): Psychiatric history also runs in the patient's family. The patient's daughter has committed suicide. The pa teresa's brother and sister and mother all of cancers. Apparently rest cancer and esophageal cancer and pancreatic cancer runs in family unable to give detailed history on that. Sister(s) Family Medical History: Cancer Father Family Medical History: Myocardial Infarction ([place]) Additional Family Medical History / Comment(s): Father had lung cancer. Mother Family Medical History: Cancer Additional Family Medical History / Comment(s): Mother had pancreatic cancer. General Exam Limitations: no limitations General appearance: alert, in no apparent distress Respiratory exam: Present: normal lung sounds bilaterally. Absent: respiratory distress, wheezes, rales, rhonchi, stridor Cardiovascular Exam: Present: regular rate, normal rhythm, normal heart sounds. Absent: systolic murmur, diastolic murmur, rubs, gallop, clicks Extremities exam: Present: normal inspection, full ROM, normal capillary refill (2+ left radial pulse.). Absent: tenderness, pedal edema, joint swelling, calf tenderness Neurological exam: Present: alert, oriented X3, CN II-XII intact Skin exam: Present: warm, dry, intact, normal color, other (4 puncture wounds to left forearm. No active bleeding. Bruising noted to area.) Course Vital Signs 11/12/24 14:53 Temperature 98.6 F Pulse Rate 77 Respiratory 16 Rate Blood Pressure 116/68 O2 Sat by Pulse 99 Oximetry Medical Decision Making - Medical Decision Making Was pt. sent in by a medical professional or institution (, [facility], VISUAL DISPLAY MANAGER, urgent care, hospital, or fpc...) When possible be specific @ -[No] Did you speak to anyone other than the patient for history (EMS, parent, family, police, friend...)? What history was obtained from this source @ -[No] Did you review nursing and triage notes (agree or disagree)? Why? @ -[I reviewed and agree with nursing and triage notes] Were old charts reviewed (outside hosp., previous admission, EMS record, old EKG, old radiological studies, urgent care reports/EKG's, fpc records)? Report findings @ -[No old charts were reviewed] Differential Diagnosis (chest pain, altered mental status, abdominal pain women, abdominal pain men, vaginal bleeding, weakness, fever, dyspnea, syncope, headache, dizziness, GI bleed, back pain, seizure, CVA, palpatations, mental health, musculoskeletal)? @ -[not applicable] EKG interpreted by me (3pts min.). @ -[As above] X-rays interpreted by me (1pt min.). @ -[None done] CT interpreted by me (1pt min.). @ -[None done] U/S interpreted by me (1pt. min.). @ -[None done] What testing was considered but not performed or refused? (CT, X-rays, U/S, labs)? Why? @ -[None] What meds were considered but not given or refused? Why? @ -[None] Did you discuss the management of the patient with other professionals (professionals i.e. [facility] Munson, VISUAL DISPLAY MANAGER, lab, RT, psych nurse, manager social, zigzag topstitcher, teacher, global safety officer, shoe parts caser)? Give summary @ -[No] Was smoking cessation discussed for >3mins.? @ -[No] Was critical care preformed (if so, how long)? @ -[No] Were there social determinants of health that impacted care today? How? (Homelessness, low income, unemployed, alcoholism, drug addiction, transportation, low edu. Level, literacy, decrease access to med. care, long term, rehab)? @ -[No] Was there de-escalation of care discussed even if they declined (Discuss DNR or withdrawal of care, Hospice)? DNR status @ -[No] What co-morbidities impacted this encounter? (DM, HTN, Smoking, COPD, CAD, Cancer, CVA, ARF, Chemo, Hep., AIDS, mental health diagnosis, sleep apnea, morbid obesity)? @ -[None] Was patient admitted / discharged? Hospital course, mention meds given and route, prescriptions, significant lab abnormalities, going to OR and other pertinent info. @ -[hospital course] Undiagnosed new problem with uncertain prognosis? @ -[No] Drug Therapy requiring intensive monitoring for toxicity (Heparin, Nitro, Insulin, Cardizem)? @ -[No] Were any procedures done? @ -[No] Diagnosis/symptom? @ -[default] Acute, or Chronic, or Acute on Chronic? @ -[default] Uncomplicated (without systemic symptoms) or Complicated (systemic symptoms)? @ -[default] Side effects of treatment? @ -[No] Exacerbation, Progression, or Severe Exacerbation? @ -[No] Poses a threat to life or bodily function? How? (Chest pain, [place], [place], pneumonia, PE, COPD, DKA, ARF, appy, cholecystitis, CVA, Diverticulitis, Homicidal, Suicidal, threat to staff... and all critical care pts) @ -[No] Disposition Clinical Impression: Dog bite Disposition: HOME SELF-CARE Condition: Stable Instructions (If sedation given, give patient instructions): Animal Bite (ED) Additional Instructions: Keep area clean and dry monitor for signs of infection including surrounding redness, purulent drainage or increase in pain and swelling. Take Augmentin as prescribed. Follow-up closely with PCP. Return to the ER for any new or worsening concerns. Prescriptions: Amoxic-Pot Clav 875-125Mg [Augmentin 875-125] 1 tab PO Q12HR #20 tab Is patient prescribed a controlled substance at d/c from ED?: No Referrals: None,Stated [Primary Care Provider] - 1-2 days
[2024-11-12 16:07] VITALS: BP 106/70; PULSE 66; RESP 20; TEMP 98.1
== END 2024-11-12 15:59 | disposition home or self-care (01) ==
LOC: EC 14:46
DX: S51.832A Puncture wound without foreign body of left forearm, initial encounter (principal); Z91.09 Other allergy status, other than to drugs and biological substances; W54.0XXA Bitten by dog, initial encounter
CPT/HCPCS: 99283